=== PATIENT | male | born 1990 | race Two or more races ===

== ENCOUNTER 2018-04-26 19:05 | Emergency (ER) | payer SELFPAY ==
[~2018-04-26] VITALS: Ht 170.2 cm; Wt 79.4 kg
[2018-04-26] MEDS ORDERED: Dicyclomine HCl 10mg/5ml oral soln ORAL ONE (19:15)
[2018-04-26 19:20] VITALS: BP 138/68
[2018-04-26 20:02] LABS: BASOPHILS % (AUTO) 0.6 % (0.0-2.0); HEMATOCRIT 33.5 % (42.0-52.0); HEMOGLOBIN 11.6 G/DL (14.2-18.0); INR 1.1 (0.9-1.1); MEAN CORPUSCULAR VOLUME 90 FL (80-99); MONOCYTES % (AUTO) 5.9 % (1.0-10.0); NEUTROPHILS % (AUTO) 84.6 % (45.0-75.0); PLATELET COUNT 101 K/UL (150-450); RED BLOOD COUNT 3.74 M/UL (4.70-6.10); RED CELL DISTRIBUTION WIDTH 12.6 % (11.6-14.8); WHITE BLOOD COUNT 9.8 K/UL (4.8-10.8)
[2018-04-26 20:06] LABS: ANION GAP 10 mmol/L (5-15); BLOOD UREA NITROGEN 5 mg/dL (7-18); CALCIUM 9.7 MG/DL (8.5-10.1); CARBON DIOXIDE 26 MMOL/L (21-32); CHLORIDE 101 MMOL/L (98-107); CREATININE 0.9 MG/DL (0.55-1.30); SODIUM 137 MMOL/L (136-145)
[2018-04-26 20:16] LABS: ALANINE AMINOTRANSFERASE 127 U/L (12-78); ALBUMIN 4.5 G/DL (3.4-5.0); ALKALINE PHOSPHATASE 277 U/L (46-116); ASPARTATE AMINO TRANSFERASE 154 U/L (15-37); BILIRUBIN,TOTAL 2.7 MG/DL (0.2-1.0)
[2018-04-26 20:18] LABS: BILIRUBIN,DIRECT 0.8 MG/DL (0.0-0.3)
[2018-04-26 20:25] VITALS: BP 127/64
[2018-04-26] MEDS ORDERED: ATIVAN1 MG ORAL (20:38)
[2018-04-26 20:49] VITALS: BP 127/64
--- NOTE | 2018-04-26 23:20 | Emergency Room Report ---
History of Present Illness General Chief Complaint: Chest Pain Source: Patient Present Illness HPI Patient is a 27-year-old male who presented after increased chest pain and agitation. Patient had gradual onset of symptoms. The patient reports having recent alcohol use. Patient states that he had been having increased anxiety as well as some generalized anxious feelings. He denies any drug use. He is feeling generalized tremulousness. Allergies: Coded Allergies: No Known Allergies (Unverified , 04/26/18) Patient History Past Medical History: see triage record Reviewed Nursing Documentation: PMH: Agreed; PSxH: Agreed Nursing Documentation-PMH Past Medical History: No Stated History Review of Systems All Other Systems: negative except mentioned in HPI Physical Exam Vital Signs Date Time Temp Pulse Resp B/P (MAP) Pulse Ox O2 Delivery O2 Flow Rate FiO2 04/26/18 19:12 102 04/26/18 19:20 98.7 20 138/68 98 Room Air 98.7 Sp02 EP Interpretation: reviewed, normal General Appearance: normal inspection, well appearing, no apparent distress, alert, GCS 15 Head: atraumatic ENT: normal ENT inspection, hearing grossly normal, normal voice Neck: normal inspection, full range of motion, supple, no bony tend Respiratory: normal inspection, lungs clear, normal breath sounds, no respiratory distress, no retraction, no wheezing Cardiovascular #1: regular rate, rhythm, no edema Gastrointestinal: normal inspection, normal bowel sounds, non tender, soft, no guarding, no hernia Genitourinary: no CVA tenderness Musculoskeletal: normal inspection, back normal, normal range of motion Neurologic: normal inspection, alert, oriented x3, responsive, candle cutter III-XII nml as tested, speech normal Psychiatric: normal inspection, judgement/insight normal, mood/affect normal, anxious Skin: normal inspection, normal color, no rash Medical Decision Making Diagnostic Impression: Primary Impression: Abdominal pain ER Course Patient presented for abdominal pain. Differential diagnoses included ischemic bowel, appendicitis, perforated viscus, abdominal aortic aneurysm, inferior myocardial infarction, viral gastroenteritis Laboratory testing showed elevation of the patient's liver function tests. The patient was advised that he had some concerning liver function tests. Patient states that he did not want to remain in the hospital and wanted to leave immediately. The patient states that this is a chronic condition for him and he had been previously told that he had cirrhosis. The patient refused further testing and stated he wanted to leave. Patient was given prescription for Ativan for possible alcohol withdrawal.The patient is advised to follow up with primary care doctor in 1-2 days. Patient is advised to return if any worsening condition or if any changes in status that are concerning. This report is dictated with [employer] dial refinisher software which may occasionally lead to discrepancies related to use of this software. Labs Test 04/26/18 19:20 White Blood Count 9.8 K/UL (4.8-10.8) Red Blood Count 3.74 M/UL (4.70-6.10) Hemoglobin 11.6 G/DL (14.2-18.0) Hematocrit 33.5 % (42.0-52.0) Mean Corpuscular Volume 90 FL (80-99) Mean Corpuscular Hemoglobin 30.9 PG (27.0-31.0) Mean Corpuscular Hemoglobin Concent 34.5 G/DL (32.0-36.0) Red Cell Distribution Width 12.6 % (11.6-14.8) Platelet Count 101 K/UL (150-450) Mean Platelet Volume 8.0 FL (6.5-10.1) Neutrophils (%) (Auto) 84.6 % (45.0-75.0) Lymphocytes (%) (Auto) 9.0 % (20.0-45.0) Monocytes (%) (Auto) 5.9 % (1.0-10.0) Eosinophils (%) (Auto) 0.0 % (0.0-3.0) Basophils (%) (Auto) 0.6 % (0.0-2.0) Prothrombin Time 11.2 SEC (9.30-11.50) Prothromb Time International Ratio 1.1 (0.9-1.1) Activated Partial Thromboplast Time 22 SEC (23-33) Sodium Level 137 MMOL/L (136-145) Potassium Level 4.0 MMOL/L (3.5-5.1) Chloride Level 101 MMOL/L (98-107) Carbon Dioxide Level 26 MMOL/L (21-32) Anion Gap 10 mmol/L (5-15) Blood Urea Nitrogen 5 mg/dL (7-18) Creatinine 0.9 MG/DL (0.55-1.30) Estimat Glomerular Filtration Rate > 60 mL/min (>60) Glucose Level 167 MG/DL (74-106) Calcium Level 9.7 MG/DL (8.5-10.1) Total Bilirubin 2.7 MG/DL (0.2-1.0) Direct Bilirubin 0.8 MG/DL (0.0-0.3) Aspartate Amino Transf (AST/SGOT) 154 U/L (15-37) Alanine Aminotransferase (ALT/SGPT) 127 U/L (12-78) Alkaline Phosphatase 277 U/L (46-116) Troponin I 0.000 ng/mL (0.000-0.056) Total Protein 8.8 G/DL (6.4-8.2) Albumin 4.5 G/DL (3.4-5.0) Globulin 4.3 g/dL Albumin/Globulin Ratio 1.0 (1.0-2.7) Lipase 255 U/L (73-393) Last Vital Signs Date Time Temp Pulse Resp B/P (MAP) Pulse Ox O2 Delivery O2 Flow Rate FiO2 04/26/18 19:20 100 20 Room Air 04/26/18 19:20 98.7 138/68 98 98.7 Status: improved Disposition: HOME, SELF-CARE Condition: Stable Scripts Lorazepam* (ATIVAN*) 1 Mg Tablet 1 MG ORAL THREE TIMES A DAY, #14 TAB Prov: Gregorio Padgett MD 04/26/18 Referrals: NOT CHOSEN IPA/,REFERRING (PCP) Patient Instructions: Nonspecific Chest Pain Gregorio Padgett MD Apr 26, 2018 23:20
--- NOTE | 2018-04-27 10:35 | Diagnostic Imaging Report ---
Indication: Headache Technique: Contiguous 5 mm thick transaxial imaging of the head obtained in a Siemens Sensation [address] scanner. Soft tissue and bone windows generated. Automatic Exposure Control was utilized. Total Dose length Product (DLP): 1364.[address] Dose Index Volume (CTDIvol): 70.38 mGy Comparison: none Findings: The size and configuration of the cortical sulci, basal cisterns, and ventricles are within normal limits for age. There is no mass effect, midline shift, or edema identified. There is no evidence of acute hemorrhage or abnormal intra-axial or extra-axial fluid collections. The bones and soft tissues are unremarkable. Impression: No mass effect, edema or acute bleed. The CT scanner at [facility] is accredited by the [employer] and the scans are performed using dose optimization techniques as appropriate to a performed exam including Automatic Exposure control.
== END 2018-04-26 21:20 | disposition home or self-care (01) ==
LOC: EMR 21:20
DX: R10.9 Unspecified abdominal pain (principal); R07.9 Chest pain, unspecified; R45.1 Restlessness and agitation; F41.9 Anxiety disorder, unspecified
CPT/HCPCS: 36415; 70450; 80053; 82248; 83690; 84484; 85025; 85610; 85730; 93005; 99284

== ENCOUNTER 2018-09-01 19:07 | Inpatient (IN) | payer OTHER ==
[~2018-09-01] VITALS: Ht 172.7 cm; Wt 78.5 kg
[~2018-09-01 19:07] MED LIST: ATIVAN1 MG ORAL
[2018-09-01 19:15] VITALS: BP 137/86
--- NOTE | 2018-09-01 19:37 | Emergency Room Report ---
History of Present Illness General Chief Complaint: Vomiting Source: Patient Present Illness HPI 28-year-old male, history of alcoholism, p/w abdominal pain nausea and vomiting are 2 weeks. Patient states pain started about a month ago, says that it went away, then restarted again 2 weeks ago, localized all over abdomen but mostly on the left side, non radiating, sharp in nature, intermittent. No relieving or exacerbating factors. Severity is 5/ 10. Pt reports n/v, mult episodes of nbnb vomiting, no diarrhea, last bowel movement was this morning and it was brown. Denies coffee-ground emesis. Says that he has not been able to keep anything down for a few days Denies fever, chills. No hx of abdominal surgeries. No hx of endoscopies/colonoscopies. Last drink was 3 weeks ago Allergies: Coded Allergies: No Known Allergies (Unverified , 04/26/18) Patient History Past Medical History: see triage record Past Surgical History: none Pertinent Family History: none Reviewed Nursing Documentation: PMH: Agreed; PSxH: Agreed Nursing Documentation-PMH Past Medical History: No History, Except For Hx Gastrointestinal Problems: Yes Review of Systems All Other Systems: negative except mentioned in HPI Physical Exam Vital Signs Date Time Temp Pulse Resp B/P (MAP) Pulse Ox O2 Delivery O2 Flow Rate FiO2 09/01/18 19:18 97.2 135 16 149/95 100 Room Air Sp02 EP Interpretation: reviewed, normal General Appearance: alert, GCS 15, non-toxic, moderate distress Head: normocephalic, atraumatic Eyes: bilateral eye normal inspection, bilateral eye PERRL, bilateral eye EOMI ENT: normal ENT inspection, normal pharynx, normal voice, moist mucus membranes Neck: normal inspection, full range of motion, supple Respiratory: normal inspection, lungs clear, normal breath sounds, no respiratory distress, no retraction, no wheezing, speaking full sentences, chest symmetrical Cardiovascular #1: tachycardia Cardiovascular #2: 2+ radial (R), 2+ radial (L) Gastrointestinal: other - Generalized tenderness mostly in the left lower quadrant, without guarding or rebound Genitourinary: no CVA tenderness Musculoskeletal: normal inspection, back normal, normal range of motion, non- tender Neurologic: normal inspection, alert, oriented x3, responsive, motor strength/ tone normal, sensory intact, normal gait, speech normal Psychiatric: normal inspection, judgement/insight normal, memory normal Skin: normal inspection, normal color, no rash, warm/dry, well hydrated, normal turgor Medical Decision Making Diagnostic Impression: Primary Impression: Pancreatitis Additional Impressions: Hyponatremia Dehydration ER Course 28-year-old male with abdominal pain Differential Diagnosis: Gastritis, gastroenteritis, cholecystitis, appendicitis, diverticulitis, SBO,UTI /pyelo Plan: Basic labs, ua, ekg Pepcid, maalox, pain control, IVF CT abdopelvis ER course: Patient given fluids/morphine/zofran +pancreatitis Disposition: admit to [facility], damian Lainez Strict return precautions discussed with patient such as fever, chills, worsening/severe abdominal pain, nausea, vomiting, black or bloody stools, which may indicate severe illness. Patient verbalizes understanding and agrees with plan. Please note that this Emergency Department Report was dictated using [employer] billing assistant technology software, occasionally this can lead to erroneous entry secondary to interpretation by the dictation equipment EKG Diagnostic Results EP Interpretation: Yes Rate: 120 Rhythm: NSR ST Segments: No acute changes ASA given to patient: No Rhythm Strip EP Interpretation: Yes Rate:120 Rhythm: NSR, no PVCs, no ectopy Chest X-ray CXR: Ordered: Yes 1 view Indication: Chest pain EP interpretation: Yes Interpretation: No consolidation, no effusion, no PTX, no acute cardiopulmonary disease Impression: No acute disease Electronically signed by Efren Barnes MD Laboratory Tests Test 09/01/18 19:30 White Blood Count 16.4 K/UL (4.8-10.8) H Red Blood Count 4.82 M/UL (4.70-6.10) Hemoglobin 15.5 G/DL (14.2-18.0) Hematocrit 43.7 % (42.0-52.0) Mean Corpuscular Volume 91 FL (80-99) Mean Corpuscular Hemoglobin 32.1 PG (27.0-31.0) H Mean Corpuscular Hemoglobin Concent 35.5 G/DL (32.0-36.0) Red Cell Distribution Width 13.4 % (11.6-14.8) Platelet Count 106 K/UL (150-450) L Mean Platelet Volume 8.0 FL (6.5-10.1) Neutrophils (%) (Auto) % (45.0-75.0) Lymphocytes (%) (Auto) % (20.0-45.0) Monocytes (%) (Auto) % (1.0-10.0) Eosinophils (%) (Auto) % (0.0-3.0) Basophils (%) (Auto) % (0.0-2.0) Differential Total Cells Counted 100 Neutrophils % (Manual) 84 % (45-75) H Lymphocytes % (Manual) 7 % (20-45) L Monocytes % (Manual) 5 % (1-10) Eosinophils % (Manual) 0 % (0-3) Basophils % (Manual) 1 % (0-2) Band Neutrophils 3 % (0-8) Platelet Estimate Decreased L Platelet Morphology Normal Red Blood Cell Morphology Normal Prothrombin Time 11.6 SEC (9.30-11.50) H Prothrombin Time INR 1.1 (0.9-1.1) PTT 28 SEC (23-33) Sodium Level 127 MMOL/L (136-145) L Potassium Level 3.5 MMOL/L (3.5-5.1) Chloride Level 79 MMOL/L (98-107) L Carbon Dioxide Level 13 MMOL/L (21-32) L Anion Gap 35 mmol/L (5-15) H Blood Urea Nitrogen 24 mg/dL (7-18) H Creatinine 1.7 MG/DL (0.55-1.30) H Estimate Glomerular Filtration Rate 48.2 mL/min (>60) Glucose Level 212 MG/DL (74-106) H Calcium Level 10.1 MG/DL (8.5-10.1) Total Bilirubin 8.0 MG/DL (0.2-1.0) H Direct Bilirubin 5.7 MG/DL (0.0-0.3) H Aspartate Amino Transferase (AST) 322 U/L (15-37) H Alanine Aminotransferase (ALT) 119 U/L (12-78) H Alkaline Phosphatase 290 U/L (46-116) H Total Protein 9.8 G/DL (6.4-8.2) H Albumin 4.2 G/DL (3.4-5.0) Globulin 5.6 g/dL Lipase > 2000 U/L (73-393) H Serum Alcohol < 3 mg/dL CT/MRI/US Diagnostic Results CT/MRI/US Diagnostic Results : Imaging Test Ordered: CT abdo pelvis Impression Midline liver extends to left upper quadrant, normal variant. Fatty infiltration of liver noted. Spleen normal, no free fluid or air. No SBO. Normal appendix. Moderate-sized hiatal hernia. Gallbladder confluent hyperdensity of lumen may be due to sludge Last Vital Signs Date Time Temp Pulse Resp B/P (MAP) Pulse Ox O2 Delivery O2 Flow Rate FiO2 09/01/18 19:18 97.2 135 16 149/95 100 Room Air Disposition: ADMITTED INPATIENT Condition: Serious Efren Barnes M.D. Sep 01, 2018 19:37
[2018-09-01] MEDS ORDERED: Isovue-300 100ml vial INJ PRN (19:45)
[2018-09-01 19:50] LABS: HEMATOCRIT 43.7 % (42.0-52.0); HEMOGLOBIN 15.5 G/DL (14.2-18.0); MEAN CORPUSCULAR VOLUME 91 FL (80-99); PLATELET COUNT 106 K/UL (150-450); RED BLOOD COUNT 4.82 M/UL (4.70-6.10); RED CELL DISTRIBUTION WIDTH 13.4 % (11.6-14.8); WHITE BLOOD COUNT 16.4 K/UL (4.8-10.8)
[2018-09-01 19:58] LABS: ANION GAP 35 mmol/L (5-15); BLOOD UREA NITROGEN 24 mg/dL (7-18); CALCIUM 10.1 MG/DL (8.5-10.1); CARBON DIOXIDE 13 MMOL/L (21-32); CHLORIDE 79 MMOL/L (98-107); CREATININE 1.7 MG/DL (0.55-1.30); POTASSIUM 3.5 MMOL/L (3.5-5.1); SODIUM 127 MMOL/L (136-145)
[2018-09-01 20:04] LABS: INR 1.1 (0.9-1.1)
[2018-09-01 20:06] LABS: ALANINE AMINOTRANSFERASE 119 U/L (12-78); ALBUMIN 4.2 G/DL (3.4-5.0); ALKALINE PHOSPHATASE 290 U/L (46-116); ASPARTATE AMINO TRANSFERASE 322 U/L (15-37)
[2018-09-01 20:16] LABS: BILIRUBIN,DIRECT 5.7 MG/DL (0.0-0.3)
[2018-09-01] MEDS ORDERED: Morphine Sulfate 4mg/ml Inj (IV/IM USE ONLY) IVP ONE ×2 (20:30→21:00)
[2018-09-01] MEDS ORDERED: Piperacillin/Tazobactam 3.375 GM in NS 110 ML IVPB ONE (21:45)
[2018-09-02] VITALS: BP 138/60
--- NOTE | 2018-09-02 00:46 | Consultation ---
DATE OF CONSULTATION: 09/01/2018 CONSULTING PHYSICIAN: Marla Vaughn M.D. REQUESTING PHYSICIAN: Emergency room physician. REASON FOR CONSULTATION: Abdominal pain. HISTORY OF PRESENT ILLNESS: This is a 28-year-old male, who presented to emergency room complaining of abdominal pain apparently off and on for about a month. The pain is mainly located at the left lower quadrant. It has been associated with nausea and vomiting and he had a normal bowel movement today. He denies any fever, cough, dysuria, or frequency. He stated that several months ago, he had a similar episode for which he came to the hospital and was discharged after treatment. He denies fatty intolerance. He used to drink alcohol for only 3 months, but he has not had any for 3 weeks. PAST MEDICAL HISTORY: He denies allergies, asthma, diabetes, hypertension, and cardiac or renal diseases. SURGERIES: None. MEDICATIONS: Sleeping pill. SOCIAL HISTORY: The patient is a 28-year-old male, who is single and father of one child. 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 Denies smoking. He has not had any drink for 3 weeks, but he used to drink 3 times a week for short time. REVIEW OF SYSTEMS: Noncontributory. PHYSICAL EXAMINATION: GENERAL: The patient appeared to be a well-developed, well-nourished, 28-year-old male, lying on the gurney, complaining of abdominal pain. HEENT: Head is normocephalic and atraumatic. Eyes, pupils are equal, round, and reactive to light. Mouth is clear. NECK: There is no palpable thyromegaly or adenopathy. CHEST: Clear to auscultation and percussion. HEART: Tachycardic, but there is no gallop or murmur. ABDOMEN: Soft and flat mild tenderness mainly on the left side of the abdomen, but there is no guarding or rebound tenderness. Bowel sounds are present. GENITAL: Deferred. EXTREMITIES: Within normal limits. LABORATORY AND DIAGNOSTIC DATA: CBC has shown a WBC of 16,400 with a left shift. Chemistry has shown extensive changes. Sodium of 127, chloride of 79, BUN of 24, creatinine 1.7, and glucose of 212. Total bilirubin 8. Direct bilirubin 5.7. SGOT and SGPT elevated to 322 and 119. Alkaline phosphatase of 290. Lipase is over 2000. ASSESSMENT: Pancreatitis. PLAN: The patient requires to be NPO on IV fluids. He needs GI consultation and probably, he will require an endoscopic retrograde cholangiopancreatography. Marla Vaughn M.D. DR: EMORY JOB#: [id number] CC:
[2018-09-02] MEDS ORDERED: HYDROmorphone 1mg/ml Carpuject IVP PRN (01:15)
[2018-09-02 04:00] VITALS: BP 142/60
[2018-09-02 08:00] VITALS: BP 128/88
[2018-09-02 08:08] LABS: HEMATOCRIT 37.7 % (42.0-52.0); HEMOGLOBIN 12.7 G/DL (14.2-18.0); MEAN CORPUSCULAR VOLUME 89 FL (80-99); PLATELET COUNT 92 K/UL (150-450); RED BLOOD COUNT 4.24 M/UL (4.70-6.10); RED CELL DISTRIBUTION WIDTH 13.1 % (11.6-14.8); WHITE BLOOD COUNT 14.5 K/UL (4.8-10.8)
[2018-09-02] MEDS: Thiamine 100mg tab ORAL SCH (08:33)
[2018-09-02 08:36] LABS: ALANINE AMINOTRANSFERASE 94 U/L (12-78); ALBUMIN 3.4 G/DL (3.4-5.0); ALBUMIN/GLOBULIN RATIO 0.7 (1.0-2.7); ALKALINE PHOSPHATASE 222 U/L (46-116); ANION GAP 22 mmol/L (5-15); ASPARTATE AMINO TRANSFERASE 245 U/L (15-37); BILIRUBIN,TOTAL 6.7 MG/DL (0.2-1.0); BLOOD UREA NITROGEN 21 mg/dL (7-18); CALCIUM 8.7 MG/DL (8.5-10.1); CARBON DIOXIDE 16 MMOL/L (21-32); CHLORIDE 89 MMOL/L (98-107); CREATININE 1.3 MG/DL (0.55-1.30); POTASSIUM 3.3 MMOL/L (3.5-5.1); SODIUM 127 MMOL/L (136-145)
[2018-09-02 08:39] LABS: BILIRUBIN,DIRECT 4.9 MG/DL (0.0-0.3)
--- NOTE | 2018-09-02 08:47 | Consultation ---
History of Present Illness General Date patient seen: Sep 02, 2018 Present Illness Allergies: Coded Allergies: No Known Allergies (Unverified , 04/26/18) Medication History Scheduled Lorazepam* (Ativan*), 1 MG ORAL THREE TIMES A DAY Patient History Healthcare decision maker Resuscitation status Full Code Advanced Directive on File No Physical Exam Last 24 Hour Vital Signs Date Time Temp Pulse Resp B/P (MAP) Pulse Ox O2 Delivery O2 Flow Rate FiO2 09/02/18 08:00 98.2 112 18 128/88 (101) 100 09/02/18 04:00 98.1 120 18 142/60 (87) 99 09/02/18 03:24 116 09/02/18 01:35 Room Air 09/02/18 00:00 97.0 123 20 138/60 (86) 98 09/01/18 22:40 97.2 117 16 137/86 100 Room Air 117 09/01/18 22:10 127 16 Room Air 09/01/18 19:18 97.2 135 16 149/95 100 Room Air 09/01/18 19:15 98.1 130 17 137/86 100 Room Air Intake and Output 09/01/18 09/02/18 19:00 07:00 Intake Total 0 ml Balance 0 ml Intake Oral 0 ml Laboratory Tests Test 09/01/18 19:30 09/02/18 07:05 White Blood Count 16.4 K/UL (4.8-10.8) H 14.5 K/UL (4.8-10.8) H Red Blood Count 4.82 M/UL (4.70-6.10) 4.24 M/UL (4.70-6.10) L Hemoglobin 15.5 G/DL (14.2-18.0) 12.7 G/DL (14.2-18.0) L Hematocrit 43.7 % (42.0-52.0) 37.7 % (42.0-52.0) L Mean Corpuscular Volume 91 FL (80-99) 89 FL (80-99) Mean Corpuscular Hemoglobin 32.1 PG (27.0-31.0) H 29.9 PG (27.0-31.0) Mean Corpuscular Hemoglobin Concent 35.5 G/DL (32.0-36.0) 33.7 G/DL (32.0-36.0) Red Cell Distribution Width 13.4 % (11.6-14.8) 13.1 % (11.6-14.8) Platelet Count 106 K/UL (150-450) L 92 K/UL (150-450) L Mean Platelet Volume 8.0 FL (6.5-10.1) 8.1 FL (6.5-10.1) Neutrophils (%) (Auto) % (45.0-75.0) % (45.0-75.0) Lymphocytes (%) (Auto) % (20.0-45.0) % (20.0-45.0) Monocytes (%) (Auto) % (1.0-10.0) % (1.0-10.0) Eosinophils (%) (Auto) % (0.0-3.0) % (0.0-3.0) Basophils (%) (Auto) % (0.0-2.0) % (0.0-2.0) Differential Total Cells Counted 100 Neutrophils % (Manual) 84 % (45-75) H Pending Lymphocytes % (Manual) 7 % (20-45) L Pending Monocytes % (Manual) 5 % (1-10) Eosinophils % (Manual) 0 % (0-3) Basophils % (Manual) 1 % (0-2) Band Neutrophils 3 % (0-8) Platelet Estimate Decreased L Pending Platelet Morphology Normal Pending Red Blood Cell Morphology Normal Prothrombin Time 11.6 SEC (9.30-11.50) H Prothromb Time International Ratio 1.1 (0.9-1.1) Activated Partial Thromboplast Time 28 SEC (23-33) Sodium Level 127 MMOL/L (136-145) L 127 MMOL/L (136-145) L Potassium Level 3.5 MMOL/L (3.5-5.1) 3.3 MMOL/L (3.5-5.1) L Chloride Level 79 MMOL/L (98-107) L 89 MMOL/L (98-107) L Carbon Dioxide Level 13 MMOL/L (21-32) L 16 MMOL/L (21-32) L Anion Gap 35 mmol/L (5-15) H 22 mmol/L (5-15) H Blood Urea Nitrogen 24 mg/dL (7-18) H 21 mg/dL (7-18) H Creatinine 1.7 MG/DL (0.55-1.30) H 1.3 MG/DL (0.55-1.30) Estimat Glomerular Filtration Rate 48.2 mL/min (>60) > 60 mL/min (>60) Glucose Level 212 MG/DL (74-106) H 125 MG/DL (74-106) H Calcium Level 10.1 MG/DL (8.5-10.1) 8.7 MG/DL (8.5-10.1) Total Bilirubin 8.0 MG/DL (0.2-1.0) H 6.7 MG/DL (0.2-1.0) H Direct Bilirubin 5.7 MG/DL (0.0-0.3) H 4.9 MG/DL (0.0-0.3) H Aspartate Amino Transf (AST/SGOT) 322 U/L (15-37) H 245 U/L (15-37) H Alanine Aminotransferase (ALT/SGPT) 119 U/L (12-78) H 94 U/L (12-78) H Alkaline Phosphatase 290 U/L (46-116) H 222 U/L (46-116) H Total Protein 9.8 G/DL (6.4-8.2) H 8.1 G/DL (6.4-8.2) Albumin 4.2 G/DL (3.4-5.0) 3.4 G/DL (3.4-5.0) Globulin 5.6 g/dL 4.7 g/dL Lipase > 2000 U/L (73-393) H > 2000 U/L (73-393) H Serum Alcohol < 3 mg/dL Albumin/Globulin Ratio 0.7 (1.0-2.7) L Height (Feet): 5 Height (Inches): 8.00 Weight (Pounds): 173 Medications Current Medications Medications (Trade) Dose Ordered Sig/Solis Route PRN Reason Start Time Stop Time Status Last Admin Dose Admin Diazepam (Valium) 10 mg EVERY 2 HOURS PRN ORAL For Anxiety 09/01/18 23:30 09/08/18 23:29 09/02/18 02:10 Folic Acid (Folate) 1 mg DAILY ORAL 09/02/18 09:00 10/02/18 08:59 09/02/18 08:33 Hydromorphone HCl (Dilaudid) 1 mg Q4H PRN IVP Moderate Pain (Pain Scale 4-6) 09/02/18 01:15 09/09/18 01:14 Hydromorphone HCl (Dilaudid) 2 mg Q4H PRN IVP Severe Pain (Pain Scale 7-10) 09/02/18 01:15 09/09/18 01:14 Iopamidol (Isovue-300 100ml) 100 ml NOW PRN INJ Radiology Procedure 09/01/18 19:45 Ondansetron HCl (Zofran) 4 mg Q6H PRN IVP Nausea & Vomiting 09/02/18 01:15 10/02/18 01:14 09/02/18 08:39 Thiamine HCl (Vitamin B1) 100 mg DAILY ORAL 09/02/18 09:00 10/02/18 08:59 09/02/18 08:33 Assessment/Plan Assessment/Plan (1) Abdominal pain (2) Pancreatitis seen dictated David La Sep 02, 2018 08:47
[2018-09-02] MEDS ORDERED: Norco 5mg/325mg tab ORAL PRN (09:00)
[2018-09-02] MEDS ORDERED: Hydromorphone 0.5mg/0.5ml inj IVP PRN (09:15)
--- NOTE | 2018-09-02 09:58 | Diagnostic Imaging Report ---
Indication: Abdominal pain, nausea, vomiting x2 weeks Technique: Spiral acquisitions obtained through the abdomen and pelvis. No oral contrast utilized, per emergency room physician request No IV contrast utilized, per referring physician request.. Multiplanar reconstructions were generated. Total dose length product 593.26 mGycm. CTDIvol(s) 11.22 mGy. Dose reduction achieved using automated exposure control Comparison: None Findings: There is a small to moderate-sized hiatal hernia. Stomach, duodenum are unremarkable otherwise. No small bowel distention. There are a few mildly prominent left lower quadrant small bowel loops noted. The appendix is normal. No evidence of diverticulosis or diverticulitis. No free or loculated intraperitoneal gas or fluid is evident. Lack of IV contrast limits assessment of the solid organs. The liver is diffusely hypoattenuating. It is enlarged. No focal abnormality. The gallbladder contents are slightly high in attenuation, but no focal calculi demonstrated. The bile ducts, pancreas, spleen, adrenals, kidneys are all unremarkable. No retroperitoneal or mesenteric mass or adenopathy. No pelvic mass or adenopathy. The included lung bases demonstrate minimal linear opacities in the lingula and left lower lobe, are otherwise clear. The bones are unremarkable.. Impression: Somewhat enlarged fatty liver No definite acute process Possible gallbladder sludge Small to moderate hiatal hernia This agrees with the preliminary interpretation provided overnight by Dr. Larsen The CT scanner at [facility] is accredited by the [employer] and the scans are performed using protocols designed to limit radiation exposure to as low as reasonably achievable to attain images of sufficient resolution adequate for diagnostic evaluation.
--- NOTE | 2018-09-02 10:37 | GI Initial Consult Note ---
History of Present Illness General Date patient seen: Sep 02, 2018 Time patient seen: 13:28 Reason for Hospitalization: Vomiting Referring physician: RHIANNA POTTER Reason for Consultation: ABNORMAL LFTS Present Illness HPI 28-year-old male, history of alcoholism, p/w abdominal pain nausea and vomiting are 2 weeks. Patient states pain started about a month ago, says that it went away, then restarted again 2 weeks ago, localized all over abdomen but mostly on the left side, non radiating, sharp in nature, intermittent. No relieving or exacerbating factors. Severity is 5/ 10. Pt reports n/v, mult episodes of nbnb vomiting, no diarrhea, last bowel movement was this morning and it was brown. Denies coffee-ground emesis. Says that he has not been able to keep anything down for a few days Denies fever, chills. No hx of abdominal surgeries. No hx of endoscopies/colonoscopies. Last drink was 3 weeks ago Presents today with elevated LFTs and lipase greater than 2000. Home Meds Active Scripts Lorazepam* (ATIVAN*) 1 Mg Tablet, 1 MG ORAL THREE TIMES A DAY, #14 TAB Prov:Gregorio Padgett MD 04/26/18 Med list reviewed/reconciled: Yes Allergies: Coded Allergies: No Known Allergies (Unverified , 04/26/18) Patient History History Provided By: Patient, Medical Record PMH Narrative Past Medical History: see triage record Past Surgical History: none Pertinent Family History: none Reviewed Nursing Documentation: PMH: Agreed; PSxH: Agreed Nursing Documentation-PMH Past Medical History: No History, Except For Hx Gastrointestinal Problems: Yes Social History: Denies: smoking, alcohol use, drug use, other Review of Systems All Other Systems: negative except mentioned in HPI Physical Exam Vital Signs Date Time Temp Pulse Resp B/P (MAP) Pulse Ox O2 Delivery O2 Flow Rate FiO2 09/01/18 19:15 98.1 130 17 137/86 100 Room Air Sp02 EP Interpretation: reviewed, normal Labs Laboratory Tests Test 09/01/18 19:30 09/02/18 07:05 White Blood Count 16.4 K/UL (4.8-10.8) H 14.5 K/UL (4.8-10.8) H Red Blood Count 4.82 M/UL (4.70-6.10) 4.24 M/UL (4.70-6.10) L Hemoglobin 15.5 G/DL (14.2-18.0) 12.7 G/DL (14.2-18.0) L Hematocrit 43.7 % (42.0-52.0) 37.7 % (42.0-52.0) L Mean Corpuscular Volume 91 FL (80-99) 89 FL (80-99) Mean Corpuscular Hemoglobin 32.1 PG (27.0-31.0) H 29.9 PG (27.0-31.0) Mean Corpuscular Hemoglobin Concent 35.5 G/DL (32.0-36.0) 33.7 G/DL (32.0-36.0) Red Cell Distribution Width 13.4 % (11.6-14.8) 13.1 % (11.6-14.8) Platelet Count 106 K/UL (150-450) L 92 K/UL (150-450) L Mean Platelet Volume 8.0 FL (6.5-10.1) 8.1 FL (6.5-10.1) Neutrophils (%) (Auto) % (45.0-75.0) % (45.0-75.0) Lymphocytes (%) (Auto) % (20.0-45.0) % (20.0-45.0) Monocytes (%) (Auto) % (1.0-10.0) % (1.0-10.0) Eosinophils (%) (Auto) % (0.0-3.0) % (0.0-3.0) Basophils (%) (Auto) % (0.0-2.0) % (0.0-2.0) Differential Total Cells Counted 100 100 Neutrophils % (Manual) 84 % (45-75) H 82 % (45-75) H Lymphocytes % (Manual) 7 % (20-45) L 8 % (20-45) L Monocytes % (Manual) 5 % (1-10) 10 % (1-10) Eosinophils % (Manual) 0 % (0-3) 0 % (0-3) Basophils % (Manual) 1 % (0-2) 0 % (0-2) Band Neutrophils 3 % (0-8) 0 % (0-8) Platelet Estimate Decreased L Decreased L Platelet Morphology Normal Normal Red Blood Cell Morphology Normal Normal Prothrombin Time 11.6 SEC (9.30-11.50) H Prothromb Time International Ratio 1.1 (0.9-1.1) Activated Partial Thromboplast Time 28 SEC (23-33) Sodium Level 127 MMOL/L (136-145) L 127 MMOL/L (136-145) L Potassium Level 3.5 MMOL/L (3.5-5.1) 3.3 MMOL/L (3.5-5.1) L Chloride Level 79 MMOL/L (98-107) L 89 MMOL/L (98-107) L Carbon Dioxide Level 13 MMOL/L (21-32) L 16 MMOL/L (21-32) L Anion Gap 35 mmol/L (5-15) H 22 mmol/L (5-15) H Blood Urea Nitrogen 24 mg/dL (7-18) H 21 mg/dL (7-18) H Creatinine 1.7 MG/DL (0.55-1.30) H 1.3 MG/DL (0.55-1.30) Estimat Glomerular Filtration Rate 48.2 mL/min (>60) > 60 mL/min (>60) Glucose Level 212 MG/DL (74-106) H 125 MG/DL (74-106) H Calcium Level 10.1 MG/DL (8.5-10.1) 8.7 MG/DL (8.5-10.1) Total Bilirubin 8.0 MG/DL (0.2-1.0) H 6.7 MG/DL (0.2-1.0) H Direct Bilirubin 5.7 MG/DL (0.0-0.3) H 4.9 MG/DL (0.0-0.3) H Aspartate Amino Transf (AST/SGOT) 322 U/L (15-37) H 245 U/L (15-37) H Alanine Aminotransferase (ALT/SGPT) 119 U/L (12-78) H 94 U/L (12-78) H Alkaline Phosphatase 290 U/L (46-116) H 222 U/L (46-116) H Total Protein 9.8 G/DL (6.4-8.2) H 8.1 G/DL (6.4-8.2) Albumin 4.2 G/DL (3.4-5.0) 3.4 G/DL (3.4-5.0) Globulin 5.6 g/dL 4.7 g/dL Lipase > 2000 U/L (73-393) H > 2000 U/L (73-393) H Serum Alcohol < 3 mg/dL Albumin/Globulin Ratio 0.7 (1.0-2.7) L General Appearance: well appearing, no apparent distress, alert Head: normocephalic EENT: PERRL/EOMI, normal ENT inspection Neck: supple Respiratory: normal breath sounds, no respiratory distress Cardiovascular: normal rate Gastrointestinal: normal inspection, non tender, soft, normal bowel sounds, non -distended Rectal: deferred Genitourinary: deferred Musculoskeletal: normal inspection, back normal Neurologic: normal inspection, alert, oriented x3, responsive Psychiatric: normal inspection, judgement/insight normal, memory normal Skin: normal inspection, normal color, no rash, warm/dry, palpation normal, well hydrated Lymphatic: normal inspection, no adenopathy Current Medications Current Medications Medications (Trade) Dose Ordered Sig/Solis Route PRN Reason Start Time Stop Time Status Last Admin Dose Admin Acetaminophen/ Hydrocodone Bitart (Elaine 5/325) 1 tab Q4H PRN ORAL Moderate Pain (Pain Scale 4-6) 09/02/18 09:00 09/09/18 08:59 Diazepam (Valium) 10 mg EVERY 2 HOURS PRN ORAL For Anxiety 09/01/18 23:30 09/08/18 23:29 09/02/18 02:10 Folic Acid (Folate) 1 mg DAILY ORAL 09/02/18 09:00 10/02/18 08:59 09/02/18 08:33 Hydromorphone HCl (Dilaudid) 0.5 mg Q4H PRN IVP Severe Pain (Pain Scale 7-10) 09/02/18 09:15 09/09/18 01:14 Iopamidol (Isovue-300 100ml) 100 ml NOW PRN INJ Radiology Procedure 09/01/18 19:45 Ondansetron HCl (Zofran) 4 mg Q6H PRN IVP Nausea & Vomiting 09/02/18 01:15 10/02/18 01:14 09/02/18 08:39 Thiamine HCl (Vitamin B1) 100 mg DAILY ORAL 09/02/18 09:00 10/02/18 08:59 09/02/18 08:33 GI: Plan Problems: (1) Abnormal LFTs (liver function tests) (2) Abdominal pain (3) Dehydration (4) Hyponatremia (5) Pancreatitis Plan denies ETOH/Drug use , last ETOH use x3 weeks elevated LFTs ?shocked liver pancreatitis unknown etiology MRCP bowel rest >> NPO + IVFs utox pain mgmt zofran prn GGT repeat lipase levels trend LFTs fu labs Discussed with Dr. Victoria. Thank you for this patient referral, we will follow. The patient was seen and examined at bedside and all new and available data was reviewed in the patients chart. I agree with the above findings, impression and plan. (Patient seen earlier today. Signature stamp does not reflect patient encounter time.). - MD Chikis Martinez Anh-Trae PROFESSOR OF MUSIC Sep 02, 2018 10:37
[2018-09-02] MEDS ORDERED: D5 1/4NS w/KCl 20mEq 1,000 ML IV SCH (11:00)
--- NOTE | 2018-09-02 11:35 | Diagnostic Imaging Report ---
Indication: Abdominal pain Technique: One view of the chest Comparison: none Findings: Lungs and pleural spaces are clear. Heart size is normal . Surgical hardware is seen in the cervical spine Impression: No acute process
[2018-09-02 12:00] VITALS: BP 124/81
--- NOTE | 2018-09-02 12:27 | Consultation ---
Consult Note Consult Note HEMATOLOGY-ONCOLOGY CONSULTATION REFERRING PHYSICIAN: Bessy Mccormick REASON FOR CONSULTATION: Leukocytosis, thrombocytopenia DATE OF CONSULTATION: 09/02/2018 HISTORY OF PRESENT ILLNESS: This is a 28-year-old male, who presented to emergency room complaining of abdominal pain apparently off and on for about a month. The pain is mainly located at the left lower quadrant. It has been associated with nausea and vomiting and he had a normal bowel movement today. He denies any fever, cough, dysuria, or frequency. He stated that several months ago, he had a similar episode for which he came to the hospital and was discharged after treatment. He denies fatty intolerance. He used to drink alcohol for only 3 months, but he has not had any for 3 weeks. Hematology services consulted for the evaluation and management of leukocytosis and thrombocytopenia. Labs have been reviewed. PAST MEDICAL HISTORY: He denies allergies, asthma, diabetes, hypertension,and cardiac or renal diseases. SURGERIES: None. MEDICATIONS: Sleeping pill. SOCIAL HISTORY: The patient is a 28-year-old male, who is single and father of one child. 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 Denies smoking. He has not had any drink for 3 weeks, but he used to drink 3 times a week for short time. REVIEW OF SYSTEMS: Noncontributory. PHYSICAL EXAMINATION: Vitals: Have been reviewed GENERAL: No acute distress HEENT: Head is normocephalic and atraumatic. Eyes, pupils are equal, round, and reactive to light. Mouth is clear. NECK: There is no palpable thyromegaly or adenopathy. CHEST: Clear to auscultation and percussion. HEART: Tachycardic, but there is no gallop or murmur. ABDOMEN: Soft and flat mild tenderness mainly on the left side of the abdomen, but there is no guarding or rebound tenderness. Bowel sounds are present. GENITAL: Deferred. EXTREMITIES: Within normal limits. LABORATORY AND DIAGNOSTIC DATA: CBC has shown a WBC of 16,400 with a left shift. Chemistry has shown extensive changes. Sodium of 127, chloride of 79, BUN of 24, creatinine 1.7, and glucose of 212. Total bilirubin 8. Direct bilirubin 5.7. SGOT and SGPT elevated to 322 and 119. Alkaline phosphatase of 290. Lipase is over 2000. ASSESSMENT AND RECOMMENDATIONS # Leukocytosis. Likely related to underlying infection versus reactive process. --> Cont to monitor for improvement --> Imaging has been reviewed, shows no acute process --> Blood and urine cultures are pending --> Has been started on abx, empiric treatment # Thrombocytopenia. Potential causes multifactorial, evaluate liver and viral etiologies to begin. Also could be realted tp underlying medications pt has received. --> Peripheral smear ordered to evaluate for blasts/schistocytes --> Hep panel and HIV ordered. --> US abd ordered to evaluate for cirrhosis and hsm --> CT abd shows fatty liver. --> Abx and other meds have been reviewed. --> does have pancreatitis, eval for potential liver disease # Pancreatitis with abdominal pain. GI is following, appreciate recs. --> Pt is NPO and on IVF --> GGT --> Zofran prn # Transaminitis -- as per gi eval GREATLY APPRECIATE CONSULTATION. Pawel Ferrera MD Sep 02, 2018 12:27
--- NOTE | 2018-09-02 12:51 | Consultation ---
Consult Note Consult Note 28-year-old male, history of alcoholism, p/w abdominal pain nausea and vomiting are 2 weeks. Patient states pain started about a month ago, says that it went away, then restarted again 2 weeks ago, localized all over abdomen but mostly on the left side, non radiating, sharp in nature, intermittent. No relieving or exacerbating factors. Severity is 5/ 10. Pt reports n/v, mult episodes of nbnb vomiting, no diarrhea, last bowel movement was this morning and it was brown. Denies coffee-ground emesis. Says that he has not been able to keep anything down for a few days Denies fever, chills. No hx of abdominal surgeries. No hx of endoscopies/colonoscopies. Last drink was 3 weeks ago interviewed examined data reviewed Assessment/Plan Pancreatitis Abnormal LFTs Hyponatremia Dehydration IV Fluids- Pepcid IV NPO Monitor Deion Stockton MD Sep 02, 2018 12:51
[2018-09-02] MEDS: Piperacillin/Tazobactam 3.375 GM in NS 110 ML IVPB SCH ×2 (14:52→22:37)
--- NOTE | 2018-09-02 15:45 | General Surgery Progress Note ---
General Surgery-Progress Note Subjective Symptoms: improved Objective Last 24 Hour Vital Signs Date Time Temp Pulse Resp B/P (MAP) Pulse Ox O2 Delivery O2 Flow Rate FiO2 09/02/18 12:00 110 09/02/18 12:00 98.3 113 18 124/81 (95) 98 09/02/18 09:00 Room Air 09/02/18 08:00 98.2 112 18 128/88 (101) 100 09/02/18 08:00 111 09/02/18 04:00 98.1 120 18 142/60 (87) 99 09/02/18 03:24 116 09/02/18 01:35 Room Air 09/02/18 00:00 97.0 123 20 138/60 (86) 98 09/01/18 22:40 97.2 117 16 137/86 100 Room Air 117 09/01/18 22:10 127 16 Room Air 09/01/18 19:18 97.2 135 16 149/95 100 Room Air 09/01/18 19:15 98.1 130 17 137/86 100 Room Air I&O Intake and Output 09/01/18 09/02/18 18:59 06:59 Intake Total 0 ml Balance 0 ml Intake Oral 0 ml Respiratory: clear Abdomen: soft, flat, tenderness, present bowel sounds Extremities: no tenderness Laboratory Tests Test 09/01/18 19:30 09/02/18 07:05 09/02/18 14:50 White Blood Count 16.4 K/UL (4.8-10.8) H 14.5 K/UL (4.8-10.8) H Red Blood Count 4.82 M/UL (4.70-6.10) 4.24 M/UL (4.70-6.10) L Hemoglobin 15.5 G/DL (14.2-18.0) 12.7 G/DL (14.2-18.0) L Hematocrit 43.7 % (42.0-52.0) 37.7 % (42.0-52.0) L Mean Corpuscular Volume 91 FL (80-99) 89 FL (80-99) Mean Corpuscular Hemoglobin 32.1 PG (27.0-31.0) H 29.9 PG (27.0-31.0) Mean Corpuscular Hemoglobin Concent 35.5 G/DL (32.0-36.0) 33.7 G/DL (32.0-36.0) Red Cell Distribution Width 13.4 % (11.6-14.8) 13.1 % (11.6-14.8) Platelet Count 106 K/UL (150-450) L 92 K/UL (150-450) L Mean Platelet Volume 8.0 FL (6.5-10.1) 8.1 FL (6.5-10.1) Neutrophils (%) (Auto) % (45.0-75.0) % (45.0-75.0) Lymphocytes (%) (Auto) % (20.0-45.0) % (20.0-45.0) Monocytes (%) (Auto) % (1.0-10.0) % (1.0-10.0) Eosinophils (%) (Auto) % (0.0-3.0) % (0.0-3.0) Basophils (%) (Auto) % (0.0-2.0) % (0.0-2.0) Differential Total Cells Counted 100 100 Neutrophils % (Manual) 84 % (45-75) H 82 % (45-75) H Lymphocytes % (Manual) 7 % (20-45) L 8 % (20-45) L Monocytes % (Manual) 5 % (1-10) 10 % (1-10) Eosinophils % (Manual) 0 % (0-3) 0 % (0-3) Basophils % (Manual) 1 % (0-2) 0 % (0-2) Band Neutrophils 3 % (0-8) 0 % (0-8) Platelet Estimate Decreased L Decreased L Platelet Morphology Normal Normal Red Blood Cell Morphology Normal Normal Prothrombin Time 11.6 SEC (9.30-11.50) H Prothromb Time International Ratio 1.1 (0.9-1.1) Activated Partial Thromboplast Time 28 SEC (23-33) Sodium Level 127 MMOL/L (136-145) L 127 MMOL/L (136-145) L Potassium Level 3.5 MMOL/L (3.5-5.1) 3.3 MMOL/L (3.5-5.1) L Chloride Level 79 MMOL/L (98-107) L 89 MMOL/L (98-107) L Carbon Dioxide Level 13 MMOL/L (21-32) L 16 MMOL/L (21-32) L Anion Gap 35 mmol/L (5-15) H 22 mmol/L (5-15) H Blood Urea Nitrogen 24 mg/dL (7-18) H 21 mg/dL (7-18) H Creatinine 1.7 MG/DL (0.55-1.30) H 1.3 MG/DL (0.55-1.30) Estimat Glomerular Filtration Rate 48.2 mL/min (>60) > 60 mL/min (>60) Glucose Level 212 MG/DL (74-106) H 125 MG/DL (74-106) H Calcium Level 10.1 MG/DL (8.5-10.1) 8.7 MG/DL (8.5-10.1) Total Bilirubin 8.0 MG/DL (0.2-1.0) H 6.7 MG/DL (0.2-1.0) H Direct Bilirubin 5.7 MG/DL (0.0-0.3) H 4.9 MG/DL (0.0-0.3) H Aspartate Amino Transf (AST/SGOT) 322 U/L (15-37) H 245 U/L (15-37) H Alanine Aminotransferase (ALT/SGPT) 119 U/L (12-78) H 94 U/L (12-78) H Alkaline Phosphatase 290 U/L (46-116) H 222 U/L (46-116) H Total Protein 9.8 G/DL (6.4-8.2) H 8.1 G/DL (6.4-8.2) Albumin 4.2 G/DL (3.4-5.0) 3.4 G/DL (3.4-5.0) Globulin 5.6 g/dL 4.7 g/dL Lipase > 2000 U/L (73-393) H > 2000 U/L (73-393) H Serum Alcohol < 3 mg/dL C-Reactive Protein, Quantitative 1.6 mg/dL (0.00-0.90) H Albumin/Globulin Ratio 0.7 (1.0-2.7) L D-Dimer Pending Assessment Additional Comments pancreatitis Plan Additional Comments NPO IV fluids Marla Vaughn MD Sep 02, 2018 15:45
[2018-09-02 16:00] VITALS: BP 132/86
--- NOTE | 2018-09-02 16:45 | Consultation ---
DATE OF CONSULTATION: 09/02/2018 PAIN MANAGEMENT CONSULTATION CONSULTING PHYSICIAN: Elio Hammer M.D. REFERRING PHYSICIAN: Bessy Mccormick M.D. PHYSICIAN API DEVELOPER: Mariama Huber CHIEF COMPLAINT: Abdominal pain. HISTORY OF PRESENT ILLNESS: The patient is a 28-year-old male who is being seen on the telemetry floor of [facility] for initial pain management consultation. The patient was admitted under the care of Dr. Mccormick complaining of severe abdominal pain, found to have pancreatitis with nausea and vomiting. He reports that he is not a heavy drinker, does drink occasionally and started to have pain for the past three weeks and was admitted into the hospital. In the ER, he was given morphine 4 mg IV, which patient states that he does not want to take any IV medications; however, when he was admitted onto the floor Dilaudid 1 and 2 mg IV was started for moderate to severe pain. I discussed the patient about reducing the strength of his medication so that he would have something for severe pain and we can start him on Bethany for moderate pain. He seems to understand. He is doing well and he is comfortable at this time. PAST MEDICAL HISTORY: Denies. PAST SURGICAL HISTORY: Denies. SOCIAL HISTORY: Denies smoking tobacco, drinks alcohol occasionally, and denies IV drug abuse. ALLERGIES: No known drug allergies. MEDICATIONS: Denies taking medications as an outpatient. REVIEW OF SYSTEMS: Denies rash, fever, chills, sweating, dizziness, drowsiness, blurred vision, sore throat, or change in weight. No shortness of breath or chest pain. No , diarrhea, or blood in the stool or urine. No bowel or bladder incontinence. No dysuria. He is complaining of abdominal pain. PHYSICAL EXAMINATION: GENERAL: Alert, awake, and oriented x3. VITAL SIGNS: Blood pressure 128/88, heart rate , oxygen saturation 100%, respiratory rate is 18, and temperature 98.2 degrees Fahrenheit. HEENT: PERRLA. NECK: Range of motion is full in all directions. No tenderness to paracervical muscles. No adenopathy. LUNGS: Decreased breath sounds bilaterally. HEART: Regular. ABDOMEN: Tenderness to palpation. BACK: Range of motion is decreased in flexion and extension due the patient's condition. EXTREMITIES: Upper and lower extremities range of motion is full. No cyanosis. No clubbing. No edema. Sensory is intact. Reflexes are not obtainable. No adenopathy. ASSESSMENT AND PLAN: This is a 28-year-old male with abdominal pain, pancreatitis. The patient will be decreased to Dilaudid 0.5 mg IV every 4 hours as needed for severe pain, started on Bethany 5/325 one tablet every 4 hours as needed for moderate pain. The patient was discussed with Dr. Hammer and Dr. Hammer concurred. We will follow the patient. Thank you very much for the courtesy of this consultation. Elio Hamemr M.D. JORDON Huber DR: Latasha JOB#: [id number] CC:
--- NOTE | 2018-09-02 16:49 | Diagnostic Imaging Report ---
Indication: Abdominal pain Technique: Mcwilliams-scale and duplex images of the upper abdomen were obtained. Doppler interrogation of the pancreatic and hepatic vessels Comparison: Abdomen pelvis CT 09/01/2018 Findings: Gallbladder contains sludge. Multiple polypoid appearing foci within the bladder lumen measures just over 1 cm, are nonshadowing and nonmobile, probably represent tumefactive sludge. Sonographic Victor's sign is negative. Common bile duct measures 5 mm in diameter. No intrahepatic biliary ductal dilatation. Liver demonstrates increased echogenicity and enlargement, consistent with steatosis and hepatomegaly described on recent CT. No focal abnormality Portal vein and hepatic veins are patent. Pancreas is incompletely visualized due to overlying bowel gas, visualized portions are unremarkable. Spleen is unremarkable. Left kidney measures 10.8 cm in length. Right kidney measures 12 cm length. Both kidneys demonstrate normal echogenicity. There is no hydronephrosis. No focal abnormality . Abdominal aorta is partially obscured by bowel gas, visualized portions are non-aneurysmal . Impression: Gallbladder sludge. Polypoid-appearing nonshadowing foci within the gallbladder lumen probably represent foci of tumefactive sludge, as polyps of this size would be unusual in a patient of this age. Nonetheless, short interval follow-up sonography is recommended to ensure resolution of these. In retrospect, at least one is visible on prior CT Negative for dilated ducts or gallstones Enlarged fatty liver, also described on recent CT scan Note incomplete visualization of the pancreas and portions of the abdominal aorta
--- NOTE | 2018-09-02 16:58 | Cardiology Report ---
APPROVED REPORT EKG Measurement Heart [id number] Sinus tachycardia Otherwise normal ECG
[2018-09-02 20:00] VITALS: BP 129/76
--- NOTE | 2018-09-02 20:43 | Cardiology Progress Note ---
Assessment/Plan Assessment/Plan The patient is seen and examined, full consult note will be dictated. Objective Last 24 Hour Vital Signs Date Time Temp Pulse Resp B/P (MAP) Pulse Ox O2 Delivery O2 Flow Rate FiO2 09/02/18 16:00 117 09/02/18 16:00 98.0 112 18 132/86 (101) 99 09/02/18 12:00 110 09/02/18 12:00 98.3 113 18 124/81 (95) 98 09/02/18 09:00 Room Air 09/02/18 08:00 98.2 112 18 128/88 (101) 100 09/02/18 08:00 111 09/02/18 04:00 98.1 120 18 142/60 (87) 99 09/02/18 03:24 116 09/02/18 01:35 Room Air 09/02/18 00:00 97.0 123 20 138/60 (86) 98 09/01/18 22:40 97.2 117 16 137/86 100 Room Air 117 09/01/18 22:10 127 16 Room Air Intake and Output 09/01/18 09/02/18 19:00 07:00 Intake Total 0 ml Balance 0 ml Intake Oral 0 ml Laboratory Tests Test 09/02/18 07:05 09/02/18 14:50 White Blood Count 14.5 K/UL (4.8-10.8) H Red Blood Count 4.24 M/UL (4.70-6.10) L Hemoglobin 12.7 G/DL (14.2-18.0) L Hematocrit 37.7 % (42.0-52.0) L Mean Corpuscular Volume 89 FL (80-99) Mean Corpuscular Hemoglobin 29.9 PG (27.0-31.0) Mean Corpuscular Hemoglobin Concent 33.7 G/DL (32.0-36.0) Red Cell Distribution Width 13.1 % (11.6-14.8) Platelet Count 92 K/UL (150-450) L Mean Platelet Volume 8.1 FL (6.5-10.1) Neutrophils (%) (Auto) % (45.0-75.0) Lymphocytes (%) (Auto) % (20.0-45.0) Monocytes (%) (Auto) % (1.0-10.0) Eosinophils (%) (Auto) % (0.0-3.0) Basophils (%) (Auto) % (0.0-2.0) Differential Total Cells Counted 100 Neutrophils % (Manual) 82 % (45-75) H Lymphocytes % (Manual) 8 % (20-45) L Monocytes % (Manual) 10 % (1-10) Eosinophils % (Manual) 0 % (0-3) Basophils % (Manual) 0 % (0-2) Band Neutrophils 0 % (0-8) Platelet Estimate Decreased L Platelet Morphology Normal Red Blood Cell Morphology Normal Sodium Level 127 MMOL/L (136-145) L Potassium Level 3.3 MMOL/L (3.5-5.1) L Chloride Level 89 MMOL/L (98-107) L Carbon Dioxide Level 16 MMOL/L (21-32) L Anion Gap 22 mmol/L (5-15) H Blood Urea Nitrogen 21 mg/dL (7-18) H Creatinine 1.3 MG/DL (0.55-1.30) Estimat Glomerular Filtration Rate > 60 mL/min (>60) Glucose Level 125 MG/DL (74-106) H Calcium Level 8.7 MG/DL (8.5-10.1) Total Bilirubin 6.7 MG/DL (0.2-1.0) H Direct Bilirubin 4.9 MG/DL (0.0-0.3) H Aspartate Amino Transf (AST/SGOT) 245 U/L (15-37) H Alanine Aminotransferase (ALT/SGPT) 94 U/L (12-78) H Alkaline Phosphatase 222 U/L (46-116) H C-Reactive Protein, Quantitative 1.6 mg/dL (0.00-0.90) H Total Protein 8.1 G/DL (6.4-8.2) Albumin 3.4 G/DL (3.4-5.0) Globulin 4.7 g/dL Albumin/Globulin Ratio 0.7 (1.0-2.7) L Lipase > 2000 U/L (73-393) H HIV (1&2) Antibody Rapid Negative (NEGATIVE) D-Dimer 3.92 mg/L FEU (0.00-0.49) H Bassem Mora MD Sep 02, 2018 20:43
--- NOTE | 2018-09-02 20:45 | Consultation ---
DATE OF CONSULTATION: 09/02/2018 INFECTIOUS DISEASES CONSULTATION CONSULTING PHYSICIAN: Anam Corona M.D. PRIMARY ATTENDING PHYSICIAN: Bessy Mccormick M.D. REASON FOR CONSULTATION: Acute pancreatitis. HISTORY OF PRESENT ILLNESS: The patient is a 28-year-old male, admitted last night from home because of abdominal pain, nausea, vomiting. Pain mostly only reported in the lower abdomen. The patient had no fever or other symptoms. PAST MEDICAL HISTORY: Significant for alcohol abuse, but the patient stated quit 3 months ago. ALLERGIES: No known drug allergies. MEDICATIONS: Getting [place], thiamine, folic acid, [place], Zofran, get a dose of Zosyn in the ER. SOCIAL HISTORY: History of alcohol abuse until 3 months ago. He is single, has a child. 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 REVIEW OF SYSTEMS: No fever. No chills. No nausea, no vomiting at the present time. No coughing. No chest pain. No problem passing urine. PHYSICAL EXAMINATION: VITAL SIGNS: Temperature 98.2, pulse 112, blood pressure 120/88. GENERAL APPEARANCE: No acute distress. Normal weight. HEAD AND NECK: The patient has icterus. No oral lesion. HEART: S1 and S2 regular. LUNGS: Clear. ABDOMEN: Soft. Tender in the upper part of the abdomen. EXTREMITIES: No edema. LABORATORY AND DIAGNOSTIC DATA: Sodium 127, potassium 3.2, chloride 89, bicarb 18. BUN 21, creatinine 1.3. Creatinine at the time of admission was 1.7. Bilirubin 6.7, direct bilirubin 4.9, AST 249, ALT 94, alkaline phosphatase is 222. Lipase more than 2000. The patient had a CT scan of the abdomen and pelvis, which showed fatty liver, hiatal hernia. IMPRESSION: 1. Acute pancreatitis, maybe secondary to alcohol abuse. 2. Hyponatremia. 3. Acute renal failure that is improving. 4. Fatty liver. 5. Hiatal hernia. RECOMMENDATION: 1. Continue Zosyn. 2. We will follow up the lipase level. 3. We will follow up the recommendations by terra cotta setter. At the end of my exam I thank Dr. Mccormick for involving me in the care of this patient. Anam Corona M.D. DR: Leo JOB#: [id number] CC: BRIDGETTE
--- NOTE | 2018-09-02 21:15 | History and Physical Report ---
DATE OF ADMISSION: 09/01/2018 HISTORY OF PRESENT ILLNESS: The patient is admitted for pancreatitis and also has abnormal LFTs and creatinine. Dr. Vaugnh is also consulted. The patient has leukocytosis, elevated LFTs, and pancreatitis. The patient also has hyponatremia and alcohol abuse as well. The patient is being admitted for pancreatitis, electrolyte imbalance, and abdominal pain as well as tachycardia. The patient stated that he has been vomiting, could not keep anything down for two weeks and abdominal pain for two weeks. The patient has history of alcohol abuse, also feels weak and has chills. Denies diarrhea. Denies rectal bleeding. Denies hematemesis. Denies shortness of breath. Denies cough. PAST MEDICAL HISTORY: Significant for alcohol abuse and anxiety. The patient takes lorazepam. PAST SURGICAL HISTORY: None. ALLERGIES: No known allergies. MEDICATIONS: Lorazepam. FAMILY HISTORY: Noncontributory. SOCIAL HISTORY: He has history of alcohol abuse. Denies history of drug abuse. Denies history of smoking. REVIEW OF SYSTEMS: HEENT: Denies headaches. Denies shortness of breath. Denies cough. CARDIOVASCULAR: No chest pain or orthopnea. GASTROINTESTINAL: Reports abdominal pain and vomiting for two weeks. No hematemesis. No diarrhea. EXTREMITIES: Denies lower extremity pain. CENTRAL NERVOUS SYSTEM: No change in vision or speech pattern, and feels very weak. PHYSICAL EXAMINATION: VITAL SIGNS: Temperature 98.1, pulse is 120, and blood pressure 142/60. HEENT: PERRLA. NECK: Supple. No lymphadenopathy. CHEST: Clear to auscultation. CARDIOVASCULAR: Tachycardia. GASTROINTESTINAL: Diffuse tenderness. No rebound. Abdomen is soft. No organomegaly. EXTREMITIES: No edema. Moves all four extremities. Reflexes on both sides. LABORATORY DATA: WBC of 6.4, hemoglobin of 15, and platelets of 106,000. Sodium 127, potassium 3.5, BUN of 24, creatinine of 1.7, and total bilirubin of 8. AST of 322, ALT of 119, and alkaline phosphatase of 290. Chest x-ray shows no acute process. Abdominal CT was done and that shows enlarged fatty liver, otherwise gallbladder sludge and [id number] hiatal hernia. ASSESSMENT AND PLAN: Basically, lipase is greater than 2000. The patient is admitted for pancreatitis. We kept NPO and we will give IV fluids. Dr. Vaughn is also seeing to see if there is any surgical abdomen for and also the patient has hyponatremia, alcohol abuse, and tachycardia. I have consulted Dr. Victoria, Dr. Hammer, Dr. Kendrick, Dr. Anam Corona, Dr. Mora, and Dr. Lozano for the alcohol withdrawal as well as for the treatment of LFTs and as well as for treatment of pancreatitis and to rule out any signs and symptoms of acute cholecystitis. Antibiotics per Dr. Anam Corona. Bessy Mccormick M.D. DR: WILLIAN JOB#: [id number] CC:
--- NOTE | 2018-09-02 23:15 | Consultation ---
DATE OF CONSULTATION: 09/02/2018 CARDIOLOGY CONSULTATION CONSULTING PHYSICIAN: Bassem Mora M.D. REFERRING PHYSICIAN: Bessy Mccormick M.D. REASON FOR CONSULTATION: Management of tachycardia. HISTORY OF PRESENT ILLNESS: The patient is a very unfortunate 28-year-old gentleman with history of alcoholism, last alcohol about three and half weeks ago, who presents to the hospital with abdominal pain, nausea, and vomiting for about two weeks. The patient did not have any coffee-ground emesis, fever, chills, chest pain, or shortness of breath. Initial vital signs in emergency department, blood pressure 149/95 mmHg and heart rate of 135. A 12-lead electrocardiogram done in the emergency department showed sinus tachycardia at a rate of [address] and T-wave abnormalities and normal QT interval. The patient underwent a series of workup in the emergency department including laboratory findings such as imaging study, which confirm acute pancreatitis with very high lipase level over 1999. The patient was also found to be having anion gap acidosis as well as acute kidney injury. He was admitted to telemetry for further evaluation and management. Cardiology consultation was made at request of Dr. Mccormick for managing tachycardia. PAST MEDICAL HISTORY: History of alcoholism. PAST SURGICAL HISTORY: None. FAMILY HISTORY: No premature coronary artery disease or arrhythmogenic in first-degree relatives. ALLERGIES: No known drug allergies. MEDICATIONS: List of medications in the outpatient setting including Ativan 1 mg p.o. three times daily. REVIEW OF SYSTEMS: A 12-system review done essentially negative except what was mentioned in history of present illness. PHYSICAL EXAMINATION: VITAL SIGNS: Blood pressure is 149/95, respirations of 16, pulse of 135, temperature of 97.3 degrees Fahrenheit, and O2 saturation 100% on room air. GENERAL: The patient is a very unfortunate 28-year-old gentleman, seen in Cardiology consultation at request of Dr. Mccormick, in no apparent respiratory distress. Alert and oriented x4. HEENT: Atraumatic and normocephalic. Anicteric. Pupils are equal, round, and reactive to light and accommodation. Extraocular muscles intact. NECK: JVP less than 5 cm. No carotid bruit. Carotid upstrokes 2+ bilaterally. CARDIOVASCULAR: Normal S1 and S2. Regular rate and rhythm. Tachycardic. No murmurs, gallops, or rubs. PMI is at fourth intercostal space in the midclavicular line. LUNGS: Clear to auscultation bilaterally. ABDOMEN: Slightly firm. Mild epigastric tenderness. Diminished bowel sounds. EXTREMITIES: No evidence of edema, clubbing, or cyanosis. LABORATORY FINDINGS: Sodium is 127, potassium is 3.5, chloride of 79, bicarbonate 30, BUN of 24 creatinine 1.7, glucose is 212, calcium is 10.1, and lipase over 2000. AST is 322 and ALT is 119. WBC is 16.4, hemoglobin of 15.5, hematocrit of 43.7, and platelet count is 106. INR is 1.1. Chest x-ray showed no acute cardiopulmonary disease. ASSESSMENT AND PLAN: The patient is a very unfortunate 28-year-old gentleman, seen in Cardiology consultation at request of Dr. Mccormick. 1. Sinus tachycardia. The management of sinus tachycardia is the management of the underlying treatment of underlying etiology. In this setting, the patient stated that his sinus tachycardia could be a combination of hypovolemia, as there is evidence of hyponatremia, most likely intravascular volume depletion and systemic inflammatory response disease in view of acute pancreatitis is also another etiology. Inadequate pain control associated with pancreatitis would be the third etiology. The patient does not require any AV samm agents at this point and bowel rest and hydration are pain control mainstay of therapy. 2. Alcoholic hepatitis. 3. Acute kidney injury due to intravascular volume depletion, most likely prerenal azotemia. I would like to thank, Dr. Mccormick, for allowing me to participate in the care of this patient. Bassem Mora M.D. DR: MELY JOB#: [id number] CC:
--- NOTE | 2018-09-02 23:37 | Consultation ---
History of Present Illness General Date patient seen: Sep 02, 2018 Chief Complaint: Vomiting Referring physician: RHIANNA POTTER Reason for Consultation: ABNORMAL LFTS Present Illness HPI 28-year-old gentleman with history of alcoholism, last alcohol about three and half weeks ago, who presents to the hospital with abdominal pain, nausea, and vomiting for about two weeks. the pt is tachy cardic and anxious Allergies: Coded Allergies: No Known Allergies (Unverified , 04/26/18) Medication History Scheduled Lorazepam* (Ativan*), 1 MG ORAL THREE TIMES A DAY Patient History Limited by: medical condition History Provided By: Patient, Medical Record Healthcare decision maker Resuscitation status Full Code Advanced Directive on File No Past Medical/Surgical History Past Medical/Surgical History: (1) Dehydration (2) Hyponatremia (3) Pancreatitis (4) Abdominal pain (5) Abnormal LFTs (liver function tests) Review of Systems Psychiatric: Reports: prior hx, anxiety, depressed feelings, emotional problems Physical Exam General Appearance: alert, moderate distress Neurologic: oriented x 3, responsive, depressed affect Last 24 Hour Vital Signs Date Time Temp Pulse Resp B/P (MAP) Pulse Ox O2 Delivery O2 Flow Rate FiO2 09/02/18 20:00 98.1 100 20 129/76 (93) 98 09/02/18 16:00 117 09/02/18 16:00 98.0 112 18 132/86 (101) 99 09/02/18 12:00 110 09/02/18 12:00 98.3 113 18 124/81 (95) 98 09/02/18 09:00 Room Air 09/02/18 08:00 98.2 112 18 128/88 (101) 100 09/02/18 08:00 111 09/02/18 04:00 98.1 120 18 142/60 (87) 99 09/02/18 03:24 116 09/02/18 01:35 Room Air 09/02/18 00:00 97.0 123 20 138/60 (86) 98 Intake and Output 09/01/18 09/02/18 19:00 07:00 Intake Total 0 ml Balance 0 ml Intake Oral 0 ml Laboratory Tests Test 09/02/18 07:05 09/02/18 14:50 09/02/18 20:30 White Blood Count 14.5 K/UL (4.8-10.8) H Red Blood Count 4.24 M/UL (4.70-6.10) L Hemoglobin 12.7 G/DL (14.2-18.0) L Hematocrit 37.7 % (42.0-52.0) L Mean Corpuscular Volume 89 FL (80-99) Mean Corpuscular Hemoglobin 29.9 PG (27.0-31.0) Mean Corpuscular Hemoglobin Concent 33.7 G/DL (32.0-36.0) Red Cell Distribution Width 13.1 % (11.6-14.8) Platelet Count 92 K/UL (150-450) L Mean Platelet Volume 8.1 FL (6.5-10.1) Neutrophils (%) (Auto) % (45.0-75.0) Lymphocytes (%) (Auto) % (20.0-45.0) Monocytes (%) (Auto) % (1.0-10.0) Eosinophils (%) (Auto) % (0.0-3.0) Basophils (%) (Auto) % (0.0-2.0) Differential Total Cells Counted 100 Neutrophils % (Manual) 82 % (45-75) H Lymphocytes % (Manual) 8 % (20-45) L Monocytes % (Manual) 10 % (1-10) Eosinophils % (Manual) 0 % (0-3) Basophils % (Manual) 0 % (0-2) Band Neutrophils 0 % (0-8) Platelet Estimate Decreased L Platelet Morphology Normal Red Blood Cell Morphology Normal Sodium Level 127 MMOL/L (136-145) L Potassium Level 3.3 MMOL/L (3.5-5.1) L Chloride Level 89 MMOL/L (98-107) L Carbon Dioxide Level 16 MMOL/L (21-32) L Anion Gap 22 mmol/L (5-15) H Blood Urea Nitrogen 21 mg/dL (7-18) H Creatinine 1.3 MG/DL (0.55-1.30) Estimat Glomerular Filtration Rate > 60 mL/min (>60) Glucose Level 125 MG/DL (74-106) H Calcium Level 8.7 MG/DL (8.5-10.1) Total Bilirubin 6.7 MG/DL (0.2-1.0) H Direct Bilirubin 4.9 MG/DL (0.0-0.3) H Aspartate Amino Transf (AST/SGOT) 245 U/L (15-37) H Alanine Aminotransferase (ALT/SGPT) 94 U/L (12-78) H Alkaline Phosphatase 222 U/L (46-116) H C-Reactive Protein, Quantitative 1.6 mg/dL (0.00-0.90) H Total Protein 8.1 G/DL (6.4-8.2) Albumin 3.4 G/DL (3.4-5.0) Globulin 4.7 g/dL Albumin/Globulin Ratio 0.7 (1.0-2.7) L Lipase > 2000 U/L (73-393) H HIV (1&2) Antibody Rapid Negative (NEGATIVE) D-Dimer 3.92 mg/L FEU (0.00-0.49) H Urine Opiates Screen Negative (NEGATIVE) Urine Barbiturates Screen Negative (NEGATIVE) Phencyclidine (PCP) Screen Negative (NEGATIVE) Urine Amphetamines Screen Negative (NEGATIVE) Urine Benzodiazepines Screen Positive (NEGATIVE) H Urine Cocaine Screen Negative (NEGATIVE) Urine Marijuana (THC) Screen Negative (NEGATIVE) Height (Feet): 5 Height (Inches): 8.00 Weight (Pounds): 173 Medications Current Medications Medications (Trade) Dose Ordered Sig/Solis Route PRN Reason Start Time Stop Time Status Last Admin Dose Admin Dextrose/ Electrolytes 1,000 ml @ 125 mls/hr Q8H IV 09/02/18 14:38 10/02/18 14:37 09/02/18 23:01 Diazepam (Valium) 10 mg EVERY 2 HOURS PRN ORAL For Anxiety 09/01/18 23:30 09/08/18 23:29 09/02/18 14:53 Famotidine (Pepcid I.v.) 20 mg Q12HR IVP 09/02/18 21:00 10/02/18 20:59 09/02/18 23:01 Fluoxetine HCl (PROzac) 20 mg DAILY ORAL 09/02/18 12:34 10/02/18 12:33 09/02/18 12:38 Folic Acid (Folate) 1 mg DAILY ORAL 09/02/18 09:00 10/02/18 08:59 09/02/18 08:33 Hydromorphone HCl (Dilaudid) 0.5 mg Q4H PRN IVP Severe Pain (Pain Scale 7-10) 09/02/18 09:15 09/09/18 01:14 Iopamidol (Isovue-300 100ml) 100 ml NOW PRN INJ Radiology Procedure 09/01/18 19:45 Mirtazapine (Remeron) 7.5 mg BEDTIME ORAL 09/02/18 21:00 10/02/18 20:59 09/02/18 22:37 Ondansetron HCl (Zofran) 4 mg Q6H PRN IVP Nausea & Vomiting 09/02/18 01:15 10/02/18 01:14 09/02/18 08:39 Piperacillin Sod/ Tazobactam Sod 3.375 gm/Sodium Chloride 110 ml @ 27.5 mls/hr EVERY 8 HOURS IVPB 09/02/18 14:00 09/07/18 13:59 09/02/18 22:37 Thiamine HCl (Vitamin B1) 100 mg DAILY ORAL 09/02/18 09:00 10/02/18 08:59 09/02/18 08:33 Assessment/Plan Problem List: (1) Alcohol dependence ICD Codes: F10.20 - Alcohol dependence, uncomplicated SNOMED: 41986188 Assessment/Plan Reno Price MD Sep 02, 2018 23:37
[2018-09-03] VITALS: BP 129/76
[2018-09-03 04:00] VITALS: BP 136/76
[2018-09-03 05:32] LABS: HEMATOCRIT 31.4 % (42.0-52.0); MEAN CORPUSCULAR VOLUME 88 FL (80-99); PLATELET COUNT 92 K/UL (150-450); RED BLOOD COUNT 3.56 M/UL (4.70-6.10); RED CELL DISTRIBUTION WIDTH 12.8 % (11.6-14.8); WHITE BLOOD COUNT 7.9 K/UL (4.8-10.8)
[2018-09-03 06:21] LABS: ALANINE AMINOTRANSFERASE 75 U/L (12-78); ALBUMIN/GLOBULIN RATIO 0.8 (1.0-2.7); ALKALINE PHOSPHATASE 197 U/L (46-116); ANION GAP 14 mmol/L (5-15); ASPARTATE AMINO TRANSFERASE 212 U/L (15-37); BILIRUBIN,TOTAL 7.2 MG/DL (0.2-1.0); BLOOD UREA NITROGEN 12 mg/dL (7-18); CALCIUM 8.6 MG/DL (8.5-10.1); CARBON DIOXIDE 23 MMOL/L (21-32); CHLORIDE 94 MMOL/L (98-107); CREATINE KINASE 161 U/L (26-308); CREATININE 1.2 MG/DL (0.55-1.30); GAMMA GLUTAMYL TRANSPEPTIDASE 3576 U/L (5-85); POTASSIUM 2.8 MMOL/L (3.5-5.1); SODIUM 129 MMOL/L (136-145)
[2018-09-03] MEDS: Piperacillin/Tazobactam 3.375 GM in NS 110 ML IVPB SCH ×3 (06:23→21:14)
[2018-09-03 06:42] LABS: BILIRUBIN,DIRECT 5.5 MG/DL (0.0-0.3)
[2018-09-03 07:39] LABS: PHOSPHORUS 0.7 MG/DL (2.5-4.9)
[2018-09-03 08:00] VITALS: BP 126/77
[2018-09-03 08:06] LABS: CHOLESTEROL 231 MG/DL (< 200); HDL CHOLESTEROL 53 MG/DL (40-60); TRIGLYCERIDES 153 MG/DL (30-150)
[2018-09-03] MEDS: Thiamine 100mg tab ORAL SCH (08:24)
--- NOTE | 2018-09-03 09:10 | General Progress Note ---
Assessment/Plan Assessment/Plan # Thrombocytopenia. Potential causes multifactorial, evaluate liver and viral etiologies to begin. Also could be realted tp underlying medications pt has received. --> Peripheral smear ordered to evaluate for blasts/schistocytes and is negative --> Hep panel pending and HIV is negative --> US abd ordered to evaluate for cirrhosis and hsm --> CT abd shows fatty liver. --> Abx and other meds have been reviewed. --> does have pancreatitis, eval for potential liver disease # Leukocytosis. Likely related to underlying infection versus reactive process. Now improved, has received course of antibiotics. --> Blood and urine cultures reviewed, micro pending --> Cont to monitor for improvement --> Imaging has been reviewed, shows no acute process --> Has been started on abx, empiric treatment # Pancreatitis with abdominal pain. GI is following, appreciate recs. --> Pt is NPO and on IVF --> GGT --> Zofran prn # Transaminitis -- as per gi eval GREATLY APPRECIATE CONSULTATION. Subjective HEENT: Denies: no symptoms, eye pain, blurred vision, tearing, double vision, ear pain, ear discharge, nose pain, nose congestion, throat pain, throat swelling, mouth pain, mouth swelling, other Cardiovascular: Denies: no symptoms, chest pain, edema, irregular heart rate, lightheadedness, palpitations, syncope, other Respiratory: Denies: no symptoms, cough, orthopnea, shortness of breath, SOB with excertion, SOB at rest, sputum, stridor, wheezing, other Gastrointestinal/Abdominal: Denies: no symptoms, abdomen distended, abdominal pain, black stools, tarry stools, blood in stool, constipated, diarrhea, difficulty swallowing, nausea, poor appetite, poor fluid intake, rectal bleeding , vomiting, other Genitourinary: Denies: no symptoms, burning, discharge, frequency, flank pain, hematuria, incontinence, pain, urgency, other Neurologic/Psychiatric: Denies: no symptoms, anxiety, depressed, emotional problems, headache, numbness, paresthesia, pre-existing deficit, seizure, tingling, tremors, weakness, other Endocrine: Denies: no symptoms, excessive sweating, flushing, intolerance to cold, intolerance to heat, increased hunger, increased thirst, increased urine, unexplained weight gain, unexplained weight loss, other Hematologic/Lymphatic: Denies: no symptoms, anemia, easy bleeding, easy bruising, other Allergies: Coded Allergies: No Known Allergies (Unverified , 04/26/18) Subjective awake and alert, less signs of distress, getting echo completed with the tech Objective Last 24 Hour Vital Signs Date Time Temp Pulse Resp B/P (MAP) Pulse Ox O2 Delivery O2 Flow Rate FiO2 09/03/18 08:00 97.2 94 20 126/77 (93) 98 09/03/18 04:00 115 09/03/18 04:00 98.1 105 20 136/76 (96) 98 09/03/18 00:00 97 09/03/18 00:00 98.0 104 20 129/76 (93) 99 09/02/18 21:00 Room Air 09/02/18 20:00 104 09/02/18 20:00 98.1 100 20 129/76 (93) 98 09/02/18 16:00 117 09/02/18 16:00 98.0 112 18 132/86 (101) 99 09/02/18 12:00 110 09/02/18 12:00 98.3 113 18 124/81 (95) 98 Intake and Output 09/02/18 09/03/18 19:00 07:00 Intake Total 703.75 ml 1476.53 ml Balance 703.75 ml 1476.53 ml Intake Oral 400 ml IV Total 703.75 ml 1076.53 ml # Voids 2 2 Laboratory Tests 09/02/18 14:50: D-Dimer 3.92H 09/02/18 20:30: Urine Opiates Screen Negative, Urine Barbiturates Screen Negative, Phencyclidine (PCP) Screen Negative, Urine Amphetamines Screen Negative, Urine Benzodiazepines Screen PositiveH, Urine Cocaine Screen Negative, Urine Marijuana (THC) Screen Negative 09/03/18 05:15: White Blood Count 7.9, Red Blood Count 3.56L, Hemoglobin 11.0L, Hematocrit 31.4L , Mean Corpuscular Volume 88, Mean Corpuscular Hemoglobin 31.0, Mean Corpuscular Hemoglobin Concent 35.1, Red Cell Distribution Width 12.8, Platelet Count 92L, Mean Platelet Volume 7.4, Neutrophils (%) (Auto) , Lymphocytes (%) ( Auto) , Monocytes (%) (Auto) , Eosinophils (%) (Auto) , Basophils (%) (Auto) , Differential Total Cells Counted 100, Neutrophils % (Manual) 78H, Lymphocytes % (Manual) 14L, Monocytes % (Manual) 8, Eosinophils % (Manual) 0, Basophils % ( Manual) 0, Band Neutrophils 0, Platelet Estimate DecreasedL, Platelet Morphology Normal, Hypochromasia 1+, Anisocytosis 1+, Sodium Level 129L, Potassium Level 2.8L, Chloride Level 94L, Carbon Dioxide Level 23, Anion Gap 14 , Blood Urea Nitrogen 12, Creatinine 1.2, Estimat Glomerular Filtration Rate > 60, Glucose Level 128H, Lactic Acid Level 0.80, Uric Acid 4.0, Calcium Level 8.6 , Phosphorus Level 0.7*L, Magnesium Level 1.9, Total Bilirubin 7.2H, Direct Bilirubin 5.5H, Gamma Glutamyl Transpeptidase 3576H, Aspartate Amino Transf (AST /SGOT) 212H, Alanine Aminotransferase (ALT/SGPT) 75, Alkaline Phosphatase 197H, Total Creatine Kinase 161, Pro-B-Type Natriuretic Peptide 11, Total Protein 7.0 , Albumin 3.0L, Globulin 4.0, Albumin/Globulin Ratio 0.8L, Triglycerides Level 153H, Cholesterol Level 231H, LDL Cholesterol 153H, HDL Cholesterol 53, Cholesterol/HDL Ratio 4.4, Lipase > 2000H, Thyroid Stimulating Hormone (TSH) 2.186, Hepatitis A IgM Antibody [Pending], Hepatitis B Surface Antigen [Pending] , Hepatitis B Core IgM Antibody [Pending], Hepatitis C Antibody [Pending] Height (Feet): 5 Height (Inches): 8.00 Weight (Pounds): 173 General Appearance: alert EENT: TMs normal Neck: normal inspection Cardiovascular: regular rhythm Respiratory/Chest: lungs clear Abdomen: soft Extremities: non-tender Edema: no edema noted Leg (L), no edema noted Leg (R) Edema: mild edema Neurologic: alert Skin: warm/dry Pawel Ferrera MD Sep 03, 2018 09:10
--- NOTE | 2018-09-03 09:31 | General Progress Note ---
Assessment/Plan Assessment/Plan (1) Abdominal pain (2) Pancreatitis Patient will be continued on [place] and Dilaudid. D/w Dr. Hammer and he concurred. Subjective Date patient seen: Sep 03, 2018 Time patient seen: 07:00 - am Constitutional: Reports: weakness HEENT: Reports: no symptoms Cardiovascular: Reports: no symptoms Respiratory: Reports: no symptoms Gastrointestinal/Abdominal: Reports: abdominal pain Genitourinary: Reports: no symptoms Neurologic/Psychiatric: Reports: weakness Endocrine: Reports: no symptoms Hematologic/Lymphatic: Reports: no symptoms Allergies: Coded Allergies: No Known Allergies (Unverified , 04/26/18) Subjective Patient is in bed no signs of pain or distress. Pain is tolerated on the Dilaudid and [place] as needed. Objective Last 24 Hour Vital Signs Date Time Temp Pulse Resp B/P (MAP) Pulse Ox O2 Delivery O2 Flow Rate FiO2 09/03/18 08:00 97.2 94 20 126/77 (93) 98 09/03/18 04:00 115 09/03/18 04:00 98.1 105 20 136/76 (96) 98 09/03/18 00:00 97 09/03/18 00:00 98.0 104 20 129/76 (93) 99 09/02/18 21:00 Room Air 09/02/18 20:00 104 09/02/18 20:00 98.1 100 20 129/76 (93) 98 09/02/18 16:00 117 09/02/18 16:00 98.0 112 18 132/86 (101) 99 09/02/18 12:00 110 09/02/18 12:00 98.3 113 18 124/81 (95) 98 Intake and Output 09/02/18 09/03/18 19:00 07:00 Intake Total 703.75 ml 1476.53 ml Balance 703.75 ml 1476.53 ml Intake Oral 400 ml IV Total 703.75 ml 1076.53 ml # Voids 2 2 Laboratory Tests 09/02/18 14:50: D-Dimer 3.92H 09/02/18 20:30: Urine Opiates Screen Negative, Urine Barbiturates Screen Negative, Phencyclidine (PCP) Screen Negative, Urine Amphetamines Screen Negative, Urine Benzodiazepines Screen PositiveH, Urine Cocaine Screen Negative, Urine Marijuana (THC) Screen Negative 09/03/18 05:15: White Blood Count 7.9, Red Blood Count 3.56L, Hemoglobin 11.0L, Hematocrit 31.4L , Mean Corpuscular Volume 88, Mean Corpuscular Hemoglobin 31.0, Mean Corpuscular Hemoglobin Concent 35.1, Red Cell Distribution Width 12.8, Platelet Count 92L, Mean Platelet Volume 7.4, Neutrophils (%) (Auto) , Lymphocytes (%) ( Auto) , Monocytes (%) (Auto) , Eosinophils (%) (Auto) , Basophils (%) (Auto) , Differential Total Cells Counted 100, Neutrophils % (Manual) 78H, Lymphocytes % (Manual) 14L, Monocytes % (Manual) 8, Eosinophils % (Manual) 0, Basophils % ( Manual) 0, Band Neutrophils 0, Platelet Estimate DecreasedL, Platelet Morphology Normal, Hypochromasia 1+, Anisocytosis 1+, Sodium Level 129L, Potassium Level 2.8L, Chloride Level 94L, Carbon Dioxide Level 23, Anion Gap 14 , Blood Urea Nitrogen 12, Creatinine 1.2, Estimat Glomerular Filtration Rate > 60, Glucose Level 128H, Lactic Acid Level 0.80, Uric Acid 4.0, Calcium Level 8.6 , Phosphorus Level 0.7*L, Magnesium Level 1.9, Total Bilirubin 7.2H, Direct Bilirubin 5.5H, Gamma Glutamyl Transpeptidase 3576H, Aspartate Amino Transf (AST /SGOT) 212H, Alanine Aminotransferase (ALT/SGPT) 75, Alkaline Phosphatase 197H, Total Creatine Kinase 161, Pro-B-Type Natriuretic Peptide 11, Total Protein 7.0 , Albumin 3.0L, Globulin 4.0, Albumin/Globulin Ratio 0.8L, Triglycerides Level 153H, Cholesterol Level 231H, LDL Cholesterol 153H, HDL Cholesterol 53, Cholesterol/HDL Ratio 4.4, Lipase > 2000H, Thyroid Stimulating Hormone (TSH) 2.186, Hepatitis A IgM Antibody [Pending], Hepatitis B Surface Antigen [Pending] , Hepatitis B Core IgM Antibody [Pending], Hepatitis C Antibody [Pending] Height (Feet): 5 Height (Inches): 8.00 Weight (Pounds): 173 General Appearance: no apparent distress, alert EENT: PERRL/EOMI Neck: normal alignment, supple Cardiovascular: normal rate, regular rhythm Respiratory/Chest: lungs clear, normal breath sounds Abdomen: tender Extremities: non-tender Edema: no edema noted Arm (L), no edema noted Arm (R), no edema noted Leg (L), no edema noted Leg (R), no edema noted Pedal (L), no edema noted Pedal (R), no edema noted Generalized Neurologic: alert, oriented x 3 Skin: warm/dry David La Sep 03, 2018 09:31
[2018-09-03] MEDS ORDERED: Norco 5mg/325mg tab ORAL PRN (09:45)
[2018-09-03] MEDS ORDERED: Potassium Phosphate 30 MM in NS 275 ML IV ONE (10:00)
[2018-09-03 12:00] VITALS: BP 123/83
--- NOTE | 2018-09-03 12:06 | Nephrology Progress Note ---
Assessment/Plan Problem List: (1) Pancreatitis (2) Abnormal LFTs (liver function tests) (3) Abdominal pain (4) Alcohol dependence (5) Hyponatremia Assessment Pancreatitis high Lipase Abnormal LFTs Hyponatremia Dehydration I Plan IV Fluids- Protonix clear liquids Monitor lytes Phos and K and Mag supplement as needed Subjective ROS Limited/Unobtainable: No Constitutional: Reports: malaise Objective Objective Last 24 Hour Vital Signs Date Time Temp Pulse Resp B/P (MAP) Pulse Ox O2 Delivery O2 Flow Rate FiO2 09/03/18 09:00 Room Air 09/03/18 08:00 115 09/03/18 08:00 97.2 94 20 126/77 (93) 98 09/03/18 04:00 115 09/03/18 04:00 98.1 105 20 136/76 (96) 98 09/03/18 00:00 97 09/03/18 00:00 98.0 104 20 129/76 (93) 99 09/02/18 21:00 Room Air 09/02/18 20:00 104 09/02/18 20:00 98.1 100 20 129/76 (93) 98 09/02/18 16:00 117 09/02/18 16:00 98.0 112 18 132/86 (101) 99 Intake and Output 09/02/18 09/03/18 19:00 07:00 Intake Total 703.75 ml 1476.53 ml Balance 703.75 ml 1476.53 ml Intake Oral 400 ml IV Total 703.75 ml 1076.53 ml # Voids 2 2 Laboratory Tests 09/02/18 14:50: D-Dimer 3.92H 09/02/18 20:30: Urine Opiates Screen Negative, Urine Barbiturates Screen Negative, Phencyclidine (PCP) Screen Negative, Urine Amphetamines Screen Negative, Urine Benzodiazepines Screen PositiveH, Urine Cocaine Screen Negative, Urine Marijuana (THC) Screen Negative 09/03/18 05:15: White Blood Count 7.9, Red Blood Count 3.56L, Hemoglobin 11.0L, Hematocrit 31.4L , Mean Corpuscular Volume 88, Mean Corpuscular Hemoglobin 31.0, Mean Corpuscular Hemoglobin Concent 35.1, Red Cell Distribution Width 12.8, Platelet Count 92L, Mean Platelet Volume 7.4, Neutrophils (%) (Auto) , Lymphocytes (%) ( Auto) , Monocytes (%) (Auto) , Eosinophils (%) (Auto) , Basophils (%) (Auto) , Differential Total Cells Counted 100, Neutrophils % (Manual) 78H, Lymphocytes % (Manual) 14L, Monocytes % (Manual) 8, Eosinophils % (Manual) 0, Basophils % ( Manual) 0, Band Neutrophils 0, Platelet Estimate DecreasedL, Platelet Morphology Normal, Hypochromasia 1+, Anisocytosis 1+, Sodium Level 129L, Potassium Level 2.8L, Chloride Level 94L, Carbon Dioxide Level 23, Anion Gap 14 , Blood Urea Nitrogen 12, Creatinine 1.2, Estimat Glomerular Filtration Rate > 60, Glucose Level 128H, Lactic Acid Level 0.80, Uric Acid 4.0, Calcium Level 8.6 , Phosphorus Level 0.7*L, Magnesium Level 1.9, Total Bilirubin 7.2H, Direct Bilirubin 5.5H, Gamma Glutamyl Transpeptidase 3576H, Aspartate Amino Transf (AST /SGOT) 212H, Alanine Aminotransferase (ALT/SGPT) 75, Alkaline Phosphatase 197H, Total Creatine Kinase 161, Pro-B-Type Natriuretic Peptide 11, Total Protein 7.0 , Albumin 3.0L, Globulin 4.0, Albumin/Globulin Ratio 0.8L, Triglycerides Level 153H, Cholesterol Level 231H, LDL Cholesterol 153H, HDL Cholesterol 53, Cholesterol/HDL Ratio 4.4, Lipase > 2000H, Thyroid Stimulating Hormone (TSH) 2.186, Hepatitis A IgM Antibody [Pending], Hepatitis B Surface Antigen [Pending] , Hepatitis B Core IgM Antibody [Pending], Hepatitis C Antibody [Pending] Height (Feet): 5 Height (Inches): 8.00 Weight (Pounds): 173 General Appearance: no apparent distress Cardiovascular: tachycardia Respiratory/Chest: lungs clear Abdomen: soft, distended Deion Kendrick MD Sep 03, 2018 12:06
--- NOTE | 2018-09-03 13:52 | GI Progress Note ---
Assessment/Plan Problems: (1) Abnormal LFTs (liver function tests) ICD Codes: R94.5 - Abnormal results of liver function studies SNOMED: 321087388 (2) Abdominal pain ICD Codes: R10.9 - Unspecified abdominal pain SNOMED: 37070553 (3) Pancreatitis ICD Codes: K85.90 - Acute pancreatitis without necrosis or infection, unspecified SNOMED: 55504543 (4) Hyponatremia ICD Codes: E87.1 - Hypo-osmolality and hyponatremia SNOMED: 01057261 (5) Dehydration ICD Codes: E86.0 - Dehydration SNOMED: 34573750 (6) Alcohol dependence ICD Codes: F10.20 - Alcohol dependence, uncomplicated SNOMED: 80274504 Qualifiers: Qualified Codes: F10.288 - Alcohol dependence with other alcohol-induced disorder Status: unchanged Status Narrative Discussed with Dr. Victoria. Assessment/Plan denies ETOH/Drug use , last ETOH use x3 weeks mild transaminitis, elevated bilirubin, elevated GGT >> possible liver damage due to overuse of alcohol vs pancreatitis elevated lipase levels, pancreatitis unknown etiology utox negative fu MRCP, will consider endoscopy bowel rest >> CLD + IVFs pain mgmt zofran prn trend LFTs, lipase fu labs The patient was seen and examined at bedside and all new and available data was reviewed in the patients chart. I agree with the above findings, impression and plan. (Patient seen earlier today. Signature stamp does not reflect patient encounter time.). - Luis Armando Victoria MD Subjective Gastrointestinal/Abdominal: Reports: no symptoms Objective Last 24 Hour Vital Signs Date Time Temp Pulse Resp B/P (MAP) Pulse Ox O2 Delivery O2 Flow Rate FiO2 09/03/18 12:00 99.1 94 20 123/83 (96) 98 09/03/18 09:00 Room Air 09/03/18 08:00 115 09/03/18 08:00 97.2 94 20 126/77 (93) 98 09/03/18 04:00 115 09/03/18 04:00 98.1 105 20 136/76 (96) 98 09/03/18 00:00 97 09/03/18 00:00 98.0 104 20 129/76 (93) 99 09/02/18 21:00 Room Air 09/02/18 20:00 104 09/02/18 20:00 98.1 100 20 129/76 (93) 98 09/02/18 16:00 117 09/02/18 16:00 98.0 112 18 132/86 (101) 99 Intake and Output 09/02/18 09/03/18 19:00 07:00 Intake Total 703.75 ml 1476.53 ml Balance 703.75 ml 1476.53 ml Intake Oral 400 ml IV Total 703.75 ml 1076.53 ml # Voids 2 2 Laboratory Tests Test 09/02/18 14:50 09/02/18 20:30 09/03/18 05:15 D-Dimer 3.92 mg/L FEU (0.00-0.49) H Urine Opiates Screen Negative (NEGATIVE) Urine Barbiturates Screen Negative (NEGATIVE) Phencyclidine (PCP) Screen Negative (NEGATIVE) Urine Amphetamines Screen Negative (NEGATIVE) Urine Benzodiazepines Screen Positive (NEGATIVE) H Urine Cocaine Screen Negative (NEGATIVE) Urine Marijuana (THC) Screen Negative (NEGATIVE) White Blood Count 7.9 K/UL (4.8-10.8) Red Blood Count 3.56 M/UL (4.70-6.10) L Hemoglobin 11.0 G/DL (14.2-18.0) L Hematocrit 31.4 % (42.0-52.0) L Mean Corpuscular Volume 88 FL (80-99) Mean Corpuscular Hemoglobin 31.0 PG (27.0-31.0) Mean Corpuscular Hemoglobin Concent 35.1 G/DL (32.0-36.0) Red Cell Distribution Width 12.8 % (11.6-14.8) Platelet Count 92 K/UL (150-450) L Mean Platelet Volume 7.4 FL (6.5-10.1) Neutrophils (%) (Auto) % (45.0-75.0) Lymphocytes (%) (Auto) % (20.0-45.0) Monocytes (%) (Auto) % (1.0-10.0) Eosinophils (%) (Auto) % (0.0-3.0) Basophils (%) (Auto) % (0.0-2.0) Differential Total Cells Counted 100 Neutrophils % (Manual) 78 % (45-75) H Lymphocytes % (Manual) 14 % (20-45) L Monocytes % (Manual) 8 % (1-10) Eosinophils % (Manual) 0 % (0-3) Basophils % (Manual) 0 % (0-2) Band Neutrophils 0 % (0-8) Platelet Estimate Decreased L Platelet Morphology Normal Hypochromasia 1+ Anisocytosis 1+ Sodium Level 129 MMOL/L (136-145) L Potassium Level 2.8 MMOL/L (3.5-5.1) L Chloride Level 94 MMOL/L (98-107) L Carbon Dioxide Level 23 MMOL/L (21-32) Anion Gap 14 mmol/L (5-15) Blood Urea Nitrogen 12 mg/dL (7-18) Creatinine 1.2 MG/DL (0.55-1.30) Estimat Glomerular Filtration Rate > 60 mL/min (>60) Glucose Level 128 MG/DL (74-106) H Lactic Acid Level 0.80 mmol/L (0.4-2.0) Uric Acid 4.0 MG/DL (2.6-7.2) Calcium Level 8.6 MG/DL (8.5-10.1) Phosphorus Level 0.7 MG/DL (2.5-4.9) *L Magnesium Level 1.9 MG/DL (1.8-2.4) Total Bilirubin 7.2 MG/DL (0.2-1.0) H Direct Bilirubin 5.5 MG/DL (0.0-0.3) H Gamma Glutamyl Transpeptidase 3576 U/L (5-85) H Aspartate Amino Transf (AST/SGOT) 212 U/L (15-37) H Alanine Aminotransferase (ALT/SGPT) 75 U/L (12-78) Alkaline Phosphatase 197 U/L (46-116) H Total Creatine Kinase 161 U/L (26-308) Pro-B-Type Natriuretic Peptide 11 pg/mL (0-125) Total Protein 7.0 G/DL (6.4-8.2) Albumin 3.0 G/DL (3.4-5.0) L Globulin 4.0 g/dL Albumin/Globulin Ratio 0.8 (1.0-2.7) L Triglycerides Level 153 MG/DL (30-150) H Cholesterol Level 231 MG/DL (< 200) H LDL Cholesterol 153 mg/dL (<100) H HDL Cholesterol 53 MG/DL (40-60) Cholesterol/HDL Ratio 4.4 (3.3-4.4) Lipase > 2000 U/L (73-393) H Thyroid Stimulating Hormone (TSH) 2.186 uiU/mL (0.358-3.740) Hepatitis A IgM Antibody Pending Hepatitis B Surface Antigen Pending Hepatitis B Core IgM Antibody Pending Hepatitis C Antibody Pending Height (Feet): 5 Height (Inches): 8.00 Weight (Pounds): 173 General Appearance: WD/WN, no apparent distress, alert Cardiovascular: normal rate Respiratory/Chest: normal breath sounds, no respiratory distress Abdominal Exam: normal bowel sounds, non tender, soft Extremities: normal range of motion, non-tender Juliette Diop NP Sep 03, 2018 13:52
--- NOTE | 2018-09-03 14:47 | Diagnostic Imaging Report ---
Indication: Nausea vomiting x2 weeks, jaundice Technique: Coronal and axial single shot fast spin-echo breath-hold, axial T2 FRFSE, 2-D thick slab MRCP, AXIAL 2-D FIESTA fat saturated, axial 3-D dual echo breath-hold, water weighted axial LAVA FLEX, revealed 3-D MRCP images were obtained of the abdomen. MIP reconstructions were generated of the bile ducts Comparison: Reference made to abdomen pelvis CT of 09/01/2018, ultrasound of 09/02/2018 Findings: Gallbladder luminal signal is abnormal, demonstrating lower than normal T2 signal, and high signal on the lateral flex images. The right side of the gallbladder lumen, adjacent to the wall, there is an irregular 12 mm diameter low signal structure which corresponds to the subtle area of high attenuation demonstrated on the recent CT scan as well as the abnormality demonstrated on recent ultrasound. On some of the sequences, low signal material seen dependently within the gallbladder lumen. This could indicate small calculi. Gallbladder wall is not thickened. There is no biliary ductal dilatation demonstrated. No biliary ductal filling defects are evident. There is no evidence of pancreatic ductal dilatation. As described on earlier exams, the liver is somewhat enlarged. It demonstrates considerable signal decrease on the fat-suppressed images, consistent with fatty change. No focal abnormality is demonstrated. The pancreas, spleen, adrenals, kidneys are unremarkable. Impression: 1.2 cm low signal lesion apparently adherent to the lateral gallbladder wall, also corresponding to abnormality described on recent ultrasound and CT. Given its persistence, this could represent a gallbladder polyp. Given its size, surgical consultation should be considered. Alternatively, this could represent a wall adherent gallstone or unusual wall adherent tumefactive sludge Low signal material layering dependently within the gallbladder lumen, could represent small calculi that are occult on recent sonography, or could represent dependent layering of sludge. No evidence of biliary ductal dilatation or choledocholithiasis Enlarged fatty liver, also previously described Findings discussed by phone with Dr. Victoria at the time of interpretation
[2018-09-03 16:00] VITALS: BP 118/80
--- NOTE | 2018-09-03 17:02 | Infectious Diseases Prog Note ---
Assessment/Plan Assessment/Plan A: 1. Acute pancreatitis, maybe secondary to alcohol abuse. 2. Hyponatremia. 3. Acute renal failure that is improving. 4. Fatty liver. 5. Hiatal hernia. 6. Hyponatremia P: May discontinue Zosyn Subjective ROS Limited/Unobtainable: Yes Constitutional: Reports: no symptoms Gastrointestinal/Abdominal: Reports: no symptoms Genitourinary: Reports: no symptoms Allergies: Coded Allergies: No Known Allergies (Unverified , 04/26/18) Objective Vital Signs Last 24 Hour Vital Signs Date Time Temp Pulse Resp B/P (MAP) Pulse Ox O2 Delivery O2 Flow Rate FiO2 09/03/18 16:00 99.2 98 20 118/80 (93) 99 09/03/18 12:00 99.1 94 20 123/83 (96) 98 09/03/18 12:00 101 09/03/18 09:00 Room Air 09/03/18 08:00 115 09/03/18 08:00 97.2 94 20 126/77 (93) 98 09/03/18 04:00 115 09/03/18 04:00 98.1 105 20 136/76 (96) 98 09/03/18 00:00 97 09/03/18 00:00 98.0 104 20 129/76 (93) 99 09/02/18 21:00 Room Air 09/02/18 20:00 104 09/02/18 20:00 98.1 100 20 129/76 (93) 98 Height (Feet): 5 Height (Inches): 8.00 Weight (Pounds): 173 General Appearance: no acute distress HEENT: mucous membranes moist Respiratory/Chest: lungs clear Cardiovascular: normal rate Abdomen: soft, non tender Extremities: no edema Neurologic/Psychiatric: alert, oriented x 3, responsive Laboratory Tests Test 09/02/18 20:30 09/03/18 05:15 Urine Opiates Screen Negative (NEGATIVE) Urine Barbiturates Screen Negative (NEGATIVE) Phencyclidine (PCP) Screen Negative (NEGATIVE) Urine Amphetamines Screen Negative (NEGATIVE) Urine Benzodiazepines Screen Positive (NEGATIVE) H Urine Cocaine Screen Negative (NEGATIVE) Urine Marijuana (THC) Screen Negative (NEGATIVE) White Blood Count 7.9 K/UL (4.8-10.8) Red Blood Count 3.56 M/UL (4.70-6.10) L Hemoglobin 11.0 G/DL (14.2-18.0) L Hematocrit 31.4 % (42.0-52.0) L Mean Corpuscular Volume 88 FL (80-99) Mean Corpuscular Hemoglobin 31.0 PG (27.0-31.0) Mean Corpuscular Hemoglobin Concent 35.1 G/DL (32.0-36.0) Red Cell Distribution Width 12.8 % (11.6-14.8) Platelet Count 92 K/UL (150-450) L Mean Platelet Volume 7.4 FL (6.5-10.1) Neutrophils (%) (Auto) % (45.0-75.0) Lymphocytes (%) (Auto) % (20.0-45.0) Monocytes (%) (Auto) % (1.0-10.0) Eosinophils (%) (Auto) % (0.0-3.0) Basophils (%) (Auto) % (0.0-2.0) Differential Total Cells Counted 100 Neutrophils % (Manual) 78 % (45-75) H Lymphocytes % (Manual) 14 % (20-45) L Monocytes % (Manual) 8 % (1-10) Eosinophils % (Manual) 0 % (0-3) Basophils % (Manual) 0 % (0-2) Band Neutrophils 0 % (0-8) Platelet Estimate Decreased L Platelet Morphology Normal Hypochromasia 1+ Anisocytosis 1+ Sodium Level 129 MMOL/L (136-145) L Potassium Level 2.8 MMOL/L (3.5-5.1) L Chloride Level 94 MMOL/L (98-107) L Carbon Dioxide Level 23 MMOL/L (21-32) Anion Gap 14 mmol/L (5-15) Blood Urea Nitrogen 12 mg/dL (7-18) Creatinine 1.2 MG/DL (0.55-1.30) Estimat Glomerular Filtration Rate > 60 mL/min (>60) Glucose Level 128 MG/DL (74-106) H Lactic Acid Level 0.80 mmol/L (0.4-2.0) Uric Acid 4.0 MG/DL (2.6-7.2) Calcium Level 8.6 MG/DL (8.5-10.1) Phosphorus Level 0.7 MG/DL (2.5-4.9) *L Magnesium Level 1.9 MG/DL (1.8-2.4) Total Bilirubin 7.2 MG/DL (0.2-1.0) H Direct Bilirubin 5.5 MG/DL (0.0-0.3) H Gamma Glutamyl Transpeptidase 3576 U/L (5-85) H Aspartate Amino Transf (AST/SGOT) 212 U/L (15-37) H Alanine Aminotransferase (ALT/SGPT) 75 U/L (12-78) Alkaline Phosphatase 197 U/L (46-116) H Total Creatine Kinase 161 U/L (26-308) Pro-B-Type Natriuretic Peptide 11 pg/mL (0-125) Total Protein 7.0 G/DL (6.4-8.2) Albumin 3.0 G/DL (3.4-5.0) L Globulin 4.0 g/dL Albumin/Globulin Ratio 0.8 (1.0-2.7) L Triglycerides Level 153 MG/DL (30-150) H Cholesterol Level 231 MG/DL (< 200) H LDL Cholesterol 153 mg/dL (<100) H HDL Cholesterol 53 MG/DL (40-60) Cholesterol/HDL Ratio 4.4 (3.3-4.4) Lipase > 2000 U/L (73-393) H Thyroid Stimulating Hormone (TSH) 2.186 uiU/mL (0.358-3.740) Hepatitis A IgM Antibody Pending Hepatitis B Surface Antigen Pending Hepatitis B Core IgM Antibody Pending Hepatitis C Antibody Pending Current Medications Medications (Trade) Dose Ordered Sig/[place] Route PRN Reason Start Time Stop Time Status Last Admin Dose Admin Acetaminophen/ Hydrocodone Bitart ([place] 5/325) 1 tab Q4H PRN ORAL Moderate Pain (Pain Scale 4-6) 09/03/18 09:45 09/10/18 09:44 Dextrose/ Electrolytes 1,000 ml @ 125 mls/hr Q8H IV 09/02/18 14:38 10/02/18 14:37 09/03/18 14:19 Diazepam (Valium) 10 mg EVERY 2 HOURS PRN ORAL For Anxiety 09/01/18 23:30 09/08/18 23:29 09/03/18 08:24 Fluoxetine HCl (PROzac) 20 mg DAILY ORAL 09/02/18 12:34 10/02/18 12:33 09/03/18 08:24 Folic Acid (Folate) 1 mg DAILY ORAL 09/02/18 09:00 10/02/18 08:59 09/03/18 08:24 Hydromorphone HCl (Dilaudid) 0.5 mg Q4H PRN IVP Severe Pain (Pain Scale 7-10) 09/02/18 09:15 09/09/18 01:14 Iopamidol (Isovue-300 100ml) 100 ml NOW PRN INJ Radiology Procedure 09/01/18 19:45 Mirtazapine (Remeron) 7.5 mg BEDTIME ORAL 09/02/18 21:00 10/02/18 20:59 09/02/18 22:37 Ondansetron HCl (Zofran) 4 mg Q6H PRN IVP Nausea & Vomiting 09/02/18 01:15 10/02/18 01:14 09/02/18 08:39 Pantoprazole (Protonix) 40 mg EVERY 12 HOURS ORAL 09/03/18 21:00 10/03/18 20:59 Piperacillin Sod/ Tazobactam Sod 3.375 gm/Sodium Chloride 110 ml @ 27.5 mls/hr EVERY 8 HOURS IVPB 09/02/18 14:00 09/07/18 13:59 09/03/18 14:11 Thiamine HCl (Vitamin B1) 100 mg DAILY ORAL 09/02/18 09:00 10/02/18 08:59 09/03/18 08:24 Anam Corona MD Sep 03, 2018 17:02
--- NOTE | 2018-09-03 18:13 | General Surgery Progress Note ---
General Surgery-Progress Note Subjective Symptoms: improved, pain absent Objective Last 24 Hour Vital Signs Date Time Temp Pulse Resp B/P (MAP) Pulse Ox O2 Delivery O2 Flow Rate FiO2 09/03/18 16:00 91 09/03/18 16:00 99.2 98 20 118/80 (93) 99 09/03/18 12:00 99.1 94 20 123/83 (96) 98 09/03/18 12:00 101 09/03/18 09:00 Room Air 09/03/18 08:00 115 09/03/18 08:00 97.2 94 20 126/77 (93) 98 09/03/18 04:00 115 09/03/18 04:00 98.1 105 20 136/76 (96) 98 09/03/18 00:00 97 09/03/18 00:00 98.0 104 20 129/76 (93) 99 09/02/18 21:00 Room Air 09/02/18 20:00 104 09/02/18 20:00 98.1 100 20 129/76 (93) 98 I&O Intake and Output 09/02/18 09/03/18 18:59 06:59 Intake Total 551.25 ml 1537.5 ml Balance 551.25 ml 1537.5 ml Intake Oral 400 ml IV Total 551.25 ml 1137.5 ml # Voids 2 2 Respiratory: clear Abdomen: soft, flat, non-tender, present bowel sounds Extremities: no tenderness Laboratory Tests Test 09/02/18 20:30 09/03/18 05:15 Urine Opiates Screen Negative (NEGATIVE) Urine Barbiturates Screen Negative (NEGATIVE) Phencyclidine (PCP) Screen Negative (NEGATIVE) Urine Amphetamines Screen Negative (NEGATIVE) Urine Benzodiazepines Screen Positive (NEGATIVE) H Urine Cocaine Screen Negative (NEGATIVE) Urine Marijuana (THC) Screen Negative (NEGATIVE) White Blood Count 7.9 K/UL (4.8-10.8) Red Blood Count 3.56 M/UL (4.70-6.10) L Hemoglobin 11.0 G/DL (14.2-18.0) L Hematocrit 31.4 % (42.0-52.0) L Mean Corpuscular Volume 88 FL (80-99) Mean Corpuscular Hemoglobin 31.0 PG (27.0-31.0) Mean Corpuscular Hemoglobin Concent 35.1 G/DL (32.0-36.0) Red Cell Distribution Width 12.8 % (11.6-14.8) Platelet Count 92 K/UL (150-450) L Mean Platelet Volume 7.4 FL (6.5-10.1) Neutrophils (%) (Auto) % (45.0-75.0) Lymphocytes (%) (Auto) % (20.0-45.0) Monocytes (%) (Auto) % (1.0-10.0) Eosinophils (%) (Auto) % (0.0-3.0) Basophils (%) (Auto) % (0.0-2.0) Differential Total Cells Counted 100 Neutrophils % (Manual) 78 % (45-75) H Lymphocytes % (Manual) 14 % (20-45) L Monocytes % (Manual) 8 % (1-10) Eosinophils % (Manual) 0 % (0-3) Basophils % (Manual) 0 % (0-2) Band Neutrophils 0 % (0-8) Platelet Estimate Decreased L Platelet Morphology Normal Hypochromasia 1+ Anisocytosis 1+ Sodium Level 129 MMOL/L (136-145) L Potassium Level 2.8 MMOL/L (3.5-5.1) L Chloride Level 94 MMOL/L (98-107) L Carbon Dioxide Level 23 MMOL/L (21-32) Anion Gap 14 mmol/L (5-15) Blood Urea Nitrogen 12 mg/dL (7-18) Creatinine 1.2 MG/DL (0.55-1.30) Estimat Glomerular Filtration Rate > 60 mL/min (>60) Glucose Level 128 MG/DL (74-106) H Lactic Acid Level 0.80 mmol/L (0.4-2.0) Uric Acid 4.0 MG/DL (2.6-7.2) Calcium Level 8.6 MG/DL (8.5-10.1) Phosphorus Level 0.7 MG/DL (2.5-4.9) *L Magnesium Level 1.9 MG/DL (1.8-2.4) Total Bilirubin 7.2 MG/DL (0.2-1.0) H Direct Bilirubin 5.5 MG/DL (0.0-0.3) H Gamma Glutamyl Transpeptidase 3576 U/L (5-85) H Aspartate Amino Transf (AST/SGOT) 212 U/L (15-37) H Alanine Aminotransferase (ALT/SGPT) 75 U/L (12-78) Alkaline Phosphatase 197 U/L (46-116) H Total Creatine Kinase 161 U/L (26-308) Pro-B-Type Natriuretic Peptide 11 pg/mL (0-125) Total Protein 7.0 G/DL (6.4-8.2) Albumin 3.0 G/DL (3.4-5.0) L Globulin 4.0 g/dL Albumin/Globulin Ratio 0.8 (1.0-2.7) L Triglycerides Level 153 MG/DL (30-150) H Cholesterol Level 231 MG/DL (< 200) H LDL Cholesterol 153 mg/dL (<100) H HDL Cholesterol 53 MG/DL (40-60) Cholesterol/HDL Ratio 4.4 (3.3-4.4) Lipase > 2000 U/L (73-393) H Thyroid Stimulating Hormone (TSH) 2.186 uiU/mL (0.358-3.740) Hepatitis A IgM Antibody Pending Hepatitis B Surface Antigen Pending Hepatitis B Core IgM Antibody Pending Hepatitis C Antibody Pending Assessment Additional Comments pancreatitis resolving Plan Additional Comments continue as before Marla Vaughn MD Sep 03, 2018 18:13
--- NOTE | 2018-09-03 19:22 | Cardiology Progress Note ---
Assessment/Plan Assessment/Plan 1. Sinus tachycardia, continue hydration and pain control. 2. Alcoholic hepatitis with associated thrombocytopenia. 3. Acute kidney injury improving, continue hydration. 4. Hyponatremia due to intravascular volume depletion, continue saline infusion. 5. Hypokalemia, replace K and keep >4.0. Subjective Subjective Sinus rhythm at rate of 91. Objective Last 24 Hour Vital Signs Date Time Temp Pulse Resp B/P (MAP) Pulse Ox O2 Delivery O2 Flow Rate FiO2 09/03/18 16:00 91 09/03/18 16:00 99.2 98 20 118/80 (93) 99 09/03/18 12:00 99.1 94 20 123/83 (96) 98 09/03/18 12:00 101 09/03/18 09:00 Room Air 09/03/18 08:00 115 09/03/18 08:00 97.2 94 20 126/77 (93) 98 09/03/18 04:00 115 09/03/18 04:00 98.1 105 20 136/76 (96) 98 09/03/18 00:00 97 09/03/18 00:00 98.0 104 20 129/76 (93) 99 09/02/18 21:00 Room Air 09/02/18 20:00 104 09/02/18 20:00 98.1 100 20 129/76 (93) 98 Intake and Output 09/02/18 09/03/18 18:59 06:59 Intake Total 551.25 ml 1537.5 ml Balance 551.25 ml 1537.5 ml Intake Oral 400 ml IV Total 551.25 ml 1137.5 ml # Voids 2 2 Laboratory Tests Test 09/02/18 20:30 09/03/18 05:15 Urine Opiates Screen Negative (NEGATIVE) Urine Barbiturates Screen Negative (NEGATIVE) Phencyclidine (PCP) Screen Negative (NEGATIVE) Urine Amphetamines Screen Negative (NEGATIVE) Urine Benzodiazepines Screen Positive (NEGATIVE) H Urine Cocaine Screen Negative (NEGATIVE) Urine Marijuana (THC) Screen Negative (NEGATIVE) White Blood Count 7.9 K/UL (4.8-10.8) Red Blood Count 3.56 M/UL (4.70-6.10) L Hemoglobin 11.0 G/DL (14.2-18.0) L Hematocrit 31.4 % (42.0-52.0) L Mean Corpuscular Volume 88 FL (80-99) Mean Corpuscular Hemoglobin 31.0 PG (27.0-31.0) Mean Corpuscular Hemoglobin Concent 35.1 G/DL (32.0-36.0) Red Cell Distribution Width 12.8 % (11.6-14.8) Platelet Count 92 K/UL (150-450) L Mean Platelet Volume 7.4 FL (6.5-10.1) Neutrophils (%) (Auto) % (45.0-75.0) Lymphocytes (%) (Auto) % (20.0-45.0) Monocytes (%) (Auto) % (1.0-10.0) Eosinophils (%) (Auto) % (0.0-3.0) Basophils (%) (Auto) % (0.0-2.0) Differential Total Cells Counted 100 Neutrophils % (Manual) 78 % (45-75) H Lymphocytes % (Manual) 14 % (20-45) L Monocytes % (Manual) 8 % (1-10) Eosinophils % (Manual) 0 % (0-3) Basophils % (Manual) 0 % (0-2) Band Neutrophils 0 % (0-8) Platelet Estimate Decreased L Platelet Morphology Normal Hypochromasia 1+ Anisocytosis 1+ Sodium Level 129 MMOL/L (136-145) L Potassium Level 2.8 MMOL/L (3.5-5.1) L Chloride Level 94 MMOL/L (98-107) L Carbon Dioxide Level 23 MMOL/L (21-32) Anion Gap 14 mmol/L (5-15) Blood Urea Nitrogen 12 mg/dL (7-18) Creatinine 1.2 MG/DL (0.55-1.30) Estimat Glomerular Filtration Rate > 60 mL/min (>60) Glucose Level 128 MG/DL (74-106) H Lactic Acid Level 0.80 mmol/L (0.4-2.0) Uric Acid 4.0 MG/DL (2.6-7.2) Calcium Level 8.6 MG/DL (8.5-10.1) Phosphorus Level 0.7 MG/DL (2.5-4.9) *L Magnesium Level 1.9 MG/DL (1.8-2.4) Total Bilirubin 7.2 MG/DL (0.2-1.0) H Direct Bilirubin 5.5 MG/DL (0.0-0.3) H Gamma Glutamyl Transpeptidase 3576 U/L (5-85) H Aspartate Amino Transf (AST/SGOT) 212 U/L (15-37) H Alanine Aminotransferase (ALT/SGPT) 75 U/L (12-78) Alkaline Phosphatase 197 U/L (46-116) H Total Creatine Kinase 161 U/L (26-308) Pro-B-Type Natriuretic Peptide 11 pg/mL (0-125) Total Protein 7.0 G/DL (6.4-8.2) Albumin 3.0 G/DL (3.4-5.0) L Globulin 4.0 g/dL Albumin/Globulin Ratio 0.8 (1.0-2.7) L Triglycerides Level 153 MG/DL (30-150) H Cholesterol Level 231 MG/DL (< 200) H LDL Cholesterol 153 mg/dL (<100) H HDL Cholesterol 53 MG/DL (40-60) Cholesterol/HDL Ratio 4.4 (3.3-4.4) Lipase > 2000 U/L (73-393) H Thyroid Stimulating Hormone (TSH) 2.186 uiU/mL (0.358-3.740) Hepatitis A IgM Antibody Pending Hepatitis B Surface Antigen Pending Hepatitis B Core IgM Antibody Pending Hepatitis C Antibody Pending Objective HEENT: Atraumatic and normocephalic. Anicteric. Pupils are equal, round, and reactive to light and accommodation. Extraocular muscles intact. NECK: JVP less than 5 cm. No carotid bruit. Carotid upstrokes 2+ bilaterally. CARDIOVASCULAR: Normal S1 and S2. Regular rate and rhythm. No murmurs, gallops, or rubs. PMI is at fourth intercostal space in the midclavicular line. LUNGS: Clear to auscultation bilaterally. ABDOMEN: Slightly firm. Mild epigastric tenderness. Diminished bowel sounds. EXTREMITIES: No evidence of edema, clubbing, or cyanosis. Bassem Mora MD Sep 03, 2018 19:22
--- NOTE | 2018-09-03 19:40 | General Progress Note ---
Assessment/Plan Problem List: (1) Alcohol dependence ICD Codes: F10.20 - Alcohol dependence, uncomplicated SNOMED: 20902012 Qualifiers: Qualified Codes: F10.288 - Alcohol dependence with other alcohol-induced disorder Assessment/Plan valium prozac Subjective Neurologic/Psychiatric: Reports: anxiety, depressed, emotional problems Allergies: Coded Allergies: No Known Allergies (Unverified , 04/26/18) Objective Last 24 Hour Vital Signs Date Time Temp Pulse Resp B/P (MAP) Pulse Ox O2 Delivery O2 Flow Rate FiO2 09/03/18 16:00 91 09/03/18 16:00 99.2 98 20 118/80 (93) 99 09/03/18 12:00 99.1 94 20 123/83 (96) 98 09/03/18 12:00 101 09/03/18 09:00 Room Air 09/03/18 08:00 115 09/03/18 08:00 97.2 94 20 126/77 (93) 98 09/03/18 04:00 115 09/03/18 04:00 98.1 105 20 136/76 (96) 98 09/03/18 00:00 97 09/03/18 00:00 98.0 104 20 129/76 (93) 99 09/02/18 21:00 Room Air 09/02/18 20:00 104 09/02/18 20:00 98.1 100 20 129/76 (93) 98 Intake and Output 09/02/18 09/03/18 18:59 06:59 Intake Total 551.25 ml 1537.5 ml Balance 551.25 ml 1537.5 ml Intake Oral 400 ml IV Total 551.25 ml 1137.5 ml # Voids 2 2 Laboratory Tests 09/02/18 20:30: Urine Opiates Screen Negative, Urine Barbiturates Screen Negative, Phencyclidine (PCP) Screen Negative, Urine Amphetamines Screen Negative, Urine Benzodiazepines Screen PositiveH, Urine Cocaine Screen Negative, Urine Marijuana (THC) Screen Negative 09/03/18 05:15: White Blood Count 7.9, Red Blood Count 3.56L, Hemoglobin 11.0L, Hematocrit 31.4L , Mean Corpuscular Volume 88, Mean Corpuscular Hemoglobin 31.0, Mean Corpuscular Hemoglobin Concent 35.1, Red Cell Distribution Width 12.8, Platelet Count 92L, Mean Platelet Volume 7.4, Neutrophils (%) (Auto) , Lymphocytes (%) ( Auto) , Monocytes (%) (Auto) , Eosinophils (%) (Auto) , Basophils (%) (Auto) , Differential Total Cells Counted 100, Neutrophils % (Manual) 78H, Lymphocytes % (Manual) 14L, Monocytes % (Manual) 8, Eosinophils % (Manual) 0, Basophils % ( Manual) 0, Band Neutrophils 0, Platelet Estimate DecreasedL, Platelet Morphology Normal, Hypochromasia 1+, Anisocytosis 1+, Sodium Level 129L, Potassium Level 2.8L, Chloride Level 94L, Carbon Dioxide Level 23, Anion Gap 14 , Blood Urea Nitrogen 12, Creatinine 1.2, Estimat Glomerular Filtration Rate > 60, Glucose Level 128H, Lactic Acid Level 0.80, Uric Acid 4.0, Calcium Level 8.6 , Phosphorus Level 0.7*L, Magnesium Level 1.9, Total Bilirubin 7.2H, Direct Bilirubin 5.5H, Gamma Glutamyl Transpeptidase 3576H, Aspartate Amino Transf (AST /SGOT) 212H, Alanine Aminotransferase (ALT/SGPT) 75, Alkaline Phosphatase 197H, Total Creatine Kinase 161, Pro-B-Type Natriuretic Peptide 11, Total Protein 7.0 , Albumin 3.0L, Globulin 4.0, Albumin/Globulin Ratio 0.8L, Triglycerides Level 153H, Cholesterol Level 231H, LDL Cholesterol 153H, HDL Cholesterol 53, Cholesterol/HDL Ratio 4.4, Lipase > 2000H, Thyroid Stimulating Hormone (TSH) 2.186, Hepatitis A IgM Antibody [Pending], Hepatitis B Surface Antigen [Pending] , Hepatitis B Core IgM Antibody [Pending], Hepatitis C Antibody [Pending] Height (Feet): 5 Height (Inches): 8.00 Weight (Pounds): 173 General Appearance: alert, moderate distress Neurologic: oriented x 3, responsive, depressed affect Reno Lozano MD Sep 03, 2018 19:40
[2018-09-03 20:00] VITALS: BP 124/84
--- NOTE | 2018-09-03 21:34 | General Progress Note ---
Assessment/Plan Problem List: (1) Dehydration ICD Codes: E86.0 - Dehydration SNOMED: 02278774 (2) Pancreatitis ICD Codes: K85.90 - Acute pancreatitis without necrosis or infection, unspecified SNOMED: 34100934 (3) Abdominal pain ICD Codes: R10.9 - Unspecified abdominal pain SNOMED: 05469676 (4) Abnormal LFTs (liver function tests) ICD Codes: R94.5 - Abnormal results of liver function studies SNOMED: 692583604 (5) Alcohol dependence ICD Codes: F10.20 - Alcohol dependence, uncomplicated SNOMED: 75286987 Qualifiers: Qualified Codes: F10.288 - Alcohol dependence with other alcohol-induced disorder Status: progressing Assessment/Plan afebrile vitals stable pancreatitis is improving abdominal pain is improving etoh dependence Subjective Gastrointestinal/Abdominal: Reports: abdominal pain Allergies: Coded Allergies: No Known Allergies (Unverified , 04/26/18) Objective Last 24 Hour Vital Signs Date Time Temp Pulse Resp B/P (MAP) Pulse Ox O2 Delivery O2 Flow Rate FiO2 09/03/18 20:00 98.4 93 19 124/84 (97) 97 09/03/18 16:00 91 09/03/18 16:00 99.2 98 20 118/80 (93) 99 09/03/18 12:00 99.1 94 20 123/83 (96) 98 09/03/18 12:00 101 09/03/18 09:00 Room Air 09/03/18 08:00 115 09/03/18 08:00 97.2 94 20 126/77 (93) 98 09/03/18 04:00 115 09/03/18 04:00 98.1 105 20 136/76 (96) 98 09/03/18 00:00 97 09/03/18 00:00 98.0 104 20 129/76 (93) 99 Intake and Output 09/02/18 09/03/18 18:59 06:59 Intake Total 551.25 ml 1537.5 ml Balance 551.25 ml 1537.5 ml Intake Oral 400 ml IV Total 551.25 ml 1137.5 ml # Voids 2 2 Laboratory Tests 09/03/18 05:15: White Blood Count 7.9, Red Blood Count 3.56L, Hemoglobin 11.0L, Hematocrit 31.4L , Mean Corpuscular Volume 88, Mean Corpuscular Hemoglobin 31.0, Mean Corpuscular Hemoglobin Concent 35.1, Red Cell Distribution Width 12.8, Platelet Count 92L, Mean Platelet Volume 7.4, Neutrophils (%) (Auto) , Lymphocytes (%) ( Auto) , Monocytes (%) (Auto) , Eosinophils (%) (Auto) , Basophils (%) (Auto) , Differential Total Cells Counted 100, Neutrophils % (Manual) 78H, Lymphocytes % (Manual) 14L, Monocytes % (Manual) 8, Eosinophils % (Manual) 0, Basophils % ( Manual) 0, Band Neutrophils 0, Platelet Estimate DecreasedL, Platelet Morphology Normal, Hypochromasia 1+, Anisocytosis 1+, Sodium Level 129L, Potassium Level 2.8L, Chloride Level 94L, Carbon Dioxide Level 23, Anion Gap 14 , Blood Urea Nitrogen 12, Creatinine 1.2, Estimat Glomerular Filtration Rate > 60, Glucose Level 128H, Lactic Acid Level 0.80, Uric Acid 4.0, Calcium Level 8.6 , Phosphorus Level 0.7*L, Magnesium Level 1.9, Total Bilirubin 7.2H, Direct Bilirubin 5.5H, Gamma Glutamyl Transpeptidase 3576H, Aspartate Amino Transf (AST /SGOT) 212H, Alanine Aminotransferase (ALT/SGPT) 75, Alkaline Phosphatase 197H, Total Creatine Kinase 161, Pro-B-Type Natriuretic Peptide 11, Total Protein 7.0 , Albumin 3.0L, Globulin 4.0, Albumin/Globulin Ratio 0.8L, Triglycerides Level 153H, Cholesterol Level 231H, LDL Cholesterol 153H, HDL Cholesterol 53, Cholesterol/HDL Ratio 4.4, Lipase > 2000H, Thyroid Stimulating Hormone (TSH) 2.186, Hepatitis A IgM Antibody [Pending], Hepatitis B Surface Antigen [Pending] , Hepatitis B Core IgM Antibody [Pending], Hepatitis C Antibody [Pending] Height (Feet): 5 Height (Inches): 8.00 Weight (Pounds): 173 Abdomen: tender Bessy Mccormick MD Sep 03, 2018 21:34
[2018-09-04] VITALS: BP 132/71
[2018-09-04 04:00] VITALS: BP 122/79
[2018-09-04] MEDS: Piperacillin/Tazobactam 3.375 GM in NS 110 ML IVPB SCH ×2 (06:00→13:03)
[2018-09-04 06:41] LABS: BASOPHILS % (AUTO) 1.1 % (0.0-2.0); EOSINOPHILS % (AUTO) 1.8 % (0.0-3.0); HEMATOCRIT 29.7 % (42.0-52.0); HEMOGLOBIN 10.7 G/DL (14.2-18.0); LYMPHOCYTES % (AUTO) 14.7 % (20.0-45.0); MEAN CORPUSCULAR VOLUME 89 FL (80-99); MONOCYTES % (AUTO) 9.1 % (1.0-10.0); NEUTROPHILS % (AUTO) 73.3 % (45.0-75.0); PLATELET COUNT 106 K/UL (150-450); RED BLOOD COUNT 3.34 M/UL (4.70-6.10); RED CELL DISTRIBUTION WIDTH 13.2 % (11.6-14.8); WHITE BLOOD COUNT 7.4 K/UL (4.8-10.8)
[2018-09-04 07:04] LABS: ALANINE AMINOTRANSFERASE 61 U/L (12-78); ALBUMIN 2.7 G/DL (3.4-5.0); ALBUMIN/GLOBULIN RATIO 0.7 (1.0-2.7); ALKALINE PHOSPHATASE 185 U/L (46-116); ANION GAP 9 mmol/L (5-15); ASPARTATE AMINO TRANSFERASE 155 U/L (15-37); BILIRUBIN,TOTAL 5.5 MG/DL (0.2-1.0); BLOOD UREA NITROGEN 3 mg/dL (7-18); CALCIUM 8.3 MG/DL (8.5-10.1); CARBON DIOXIDE 27 MMOL/L (21-32); CHLORIDE 99 MMOL/L (98-107); CREATININE 0.9 MG/DL (0.55-1.30); SODIUM 135 MMOL/L (136-145)
[2018-09-04 07:07] LABS: BILIRUBIN,DIRECT 4.6 MG/DL (0.0-0.3); POTASSIUM 2.5 MMOL/L (3.5-5.1)
[2018-09-04 07:51] VITALS: BP 122/81
--- NOTE | 2018-09-04 09:02 | Nephrology Progress Note ---
Assessment/Plan Problem List: (1) Pancreatitis (2) Abnormal LFTs (liver function tests) (3) Abdominal pain (4) Alcohol dependence (5) Hyponatremia Assessment tolerating clear liquids Pancreatitis high Lipase Abnormal LFTs Hyponatremia Dehydration I Plan IV Fluids- K and Phos and Mag supplement as needed Protonix clear liquids Monitor lytes Phos and K and Mag supplement as needed Subjective ROS Limited/Unobtainable: No Objective Objective Last 24 Hour Vital Signs Date Time Temp Pulse Resp B/P (MAP) Pulse Ox O2 Delivery O2 Flow Rate FiO2 09/04/18 07:51 98.4 88 18 122/81 (95) 100 09/04/18 04:00 97.5 90 18 122/79 (93) 97 09/04/18 04:00 85 09/04/18 00:00 84 09/04/18 00:00 97.7 86 18 132/71 (91) 97 09/03/18 21:00 Room Air 09/03/18 20:00 100 09/03/18 20:00 98.4 93 19 124/84 (97) 97 09/03/18 16:00 91 09/03/18 16:00 99.2 98 20 118/80 (93) 99 09/03/18 12:00 99.1 94 20 123/83 (96) 98 09/03/18 12:00 101 Intake and Output 09/03/18 09/04/18 19:00 07:00 Intake Total 985 ml 1744.6 ml Output Total 700 ml Balance 285 ml 1744.6 ml Intake Oral 860 ml 240 ml IV Total 125 ml 1504.6 ml Output Urine Total 700 ml # Voids 2 Laboratory Tests 09/04/18 05:32: White Blood Count 7.4, Red Blood Count 3.34L, Hemoglobin 10.7L, Hematocrit 29.7L , Mean Corpuscular Volume 89, Mean Corpuscular Hemoglobin 31.9H, Mean Corpuscular Hemoglobin Concent 35.8, Red Cell Distribution Width 13.2, Platelet Count 106L, Mean Platelet Volume 7.9, Neutrophils (%) (Auto) 73.3, Lymphocytes ( %) (Auto) 14.7L, Monocytes (%) (Auto) 9.1, Eosinophils (%) (Auto) 1.8, Basophils (%) (Auto) 1.1, Sodium Level 135L, Potassium Level 2.5*L, Chloride Level 99, Carbon Dioxide Level 27, Anion Gap 9, Blood Urea Nitrogen 3L, Creatinine 0.9, Estimat Glomerular Filtration Rate > 60, Glucose Level 136H, Hemoglobin A1c 5.2, Uric Acid 1.5L, Calcium Level 8.3L, Phosphorus Level 2.0L, Magnesium Level 1.7L, Total Bilirubin 5.5H, Direct Bilirubin 4.6H, Aspartate Amino Transf (AST/SGOT) 155H, Alanine Aminotransferase (ALT/SGPT) 61, Alkaline Phosphatase 185H, C-Reactive Protein, Quantitative 5.1H, Total Protein 6.6, Albumin 2.7L, Globulin 3.9, Albumin/Globulin Ratio 0.7L, Amylase Level 510*H, Lipase > 2000H Height (Feet): 5 Height (Inches): 8.00 Weight (Pounds): 173 General Appearance: no apparent distress Cardiovascular: tachycardia Respiratory/Chest: lungs clear Abdomen: soft Objective no change Deion Kendrick MD Sep 04, 2018 09:02
[2018-09-04] MEDS: Thiamine 100mg tab ORAL SCH (09:12)
[2018-09-04] MEDS: Docusate Sod/Senna tab ORAL SCH ×2 (09:12→17:08)
--- NOTE | 2018-09-04 09:19 | General Progress Note ---
Assessment/Plan Assessment/Plan (1) Abdominal pain (2) Pancreatitis Patient will be continued on [place] and Dilaudid. D/w Dr. Hammer and he concurred. Subjective Date patient seen: Sep 04, 2018 Time patient seen: 07:45 - am Constitutional: Reports: no symptoms HEENT: Reports: no symptoms Cardiovascular: Reports: no symptoms Respiratory: Reports: no symptoms Gastrointestinal/Abdominal: Reports: no symptoms Genitourinary: Reports: no symptoms Neurologic/Psychiatric: Reports: no symptoms Endocrine: Reports: no symptoms Hematologic/Lymphatic: Reports: no symptoms Allergies: Coded Allergies: No Known Allergies (Unverified , 04/26/18) Subjective Patient shows no signs of pain or distress. He is in bed and reports no pain at this time. Objective Last 24 Hour Vital Signs Date Time Temp Pulse Resp B/P (MAP) Pulse Ox O2 Delivery O2 Flow Rate FiO2 09/04/18 07:51 98.4 88 18 122/81 (95) 100 09/04/18 04:00 97.5 90 18 122/79 (93) 97 09/04/18 04:00 85 09/04/18 00:00 84 09/04/18 00:00 97.7 86 18 132/71 (91) 97 09/03/18 21:00 Room Air 09/03/18 20:00 100 09/03/18 20:00 98.4 93 19 124/84 (97) 97 09/03/18 16:00 91 09/03/18 16:00 99.2 98 20 118/80 (93) 99 09/03/18 12:00 99.1 94 20 123/83 (96) 98 09/03/18 12:00 101 Intake and Output 09/03/18 09/04/18 19:00 07:00 Intake Total 985 ml 1744.6 ml Output Total 700 ml Balance 285 ml 1744.6 ml Intake Oral 860 ml 240 ml IV Total 125 ml 1504.6 ml Output Urine Total 700 ml # Voids 2 Laboratory Tests 09/04/18 05:32: White Blood Count 7.4, Red Blood Count 3.34L, Hemoglobin 10.7L, Hematocrit 29.7L , Mean Corpuscular Volume 89, Mean Corpuscular Hemoglobin 31.9H, Mean Corpuscular Hemoglobin Concent 35.8, Red Cell Distribution Width 13.2, Platelet Count 106L, Mean Platelet Volume 7.9, Neutrophils (%) (Auto) 73.3, Lymphocytes ( %) (Auto) 14.7L, Monocytes (%) (Auto) 9.1, Eosinophils (%) (Auto) 1.8, Basophils (%) (Auto) 1.1, Sodium Level 135L, Potassium Level 2.5*L, Chloride Level 99, Carbon Dioxide Level 27, Anion Gap 9, Blood Urea Nitrogen 3L, Creatinine 0.9, Estimat Glomerular Filtration Rate > 60, Glucose Level 136H, Hemoglobin A1c 5.2, Uric Acid 1.5L, Calcium Level 8.3L, Phosphorus Level 2.0L, Magnesium Level 1.7L, Total Bilirubin 5.5H, Direct Bilirubin 4.6H, Aspartate Amino Transf (AST/SGOT) 155H, Alanine Aminotransferase (ALT/SGPT) 61, Alkaline Phosphatase 185H, C-Reactive Protein, Quantitative 5.1H, Total Protein 6.6, Albumin 2.7L, Globulin 3.9, Albumin/Globulin Ratio 0.7L, Amylase Level 510*H, Lipase > 2000H Height (Feet): 5 Height (Inches): 8.00 Weight (Pounds): 173 General Appearance: no apparent distress, alert EENT: PERRL/EOMI, normal ENT inspection Neck: normal alignment, supple Cardiovascular: normal rate, regular rhythm Respiratory/Chest: lungs clear, normal breath sounds Abdomen: non tender, soft Extremities: non-tender Edema: no edema noted Arm (L), no edema noted Arm (R), no edema noted Leg (L), no edema noted Leg (R), no edema noted Pedal (L), no edema noted Pedal (R), no edema noted Generalized Neurologic: alert, oriented x 3 Skin: normal pigmentation David La Sep 04, 2018 09:19
[2018-09-04] MEDS ORDERED: Potassium Phosphate 30 MM in NS 275 ML IV SCH (09:30)
--- NOTE | 2018-09-04 10:48 | GI Progress Note ---
Assessment/Plan Problems: (1) Abnormal LFTs (liver function tests) ICD Codes: R94.5 - Abnormal results of liver function studies SNOMED: 374933505 (2) Abdominal pain ICD Codes: R10.9 - Unspecified abdominal pain SNOMED: 40777391 (3) Pancreatitis ICD Codes: K85.90 - Acute pancreatitis without necrosis or infection, unspecified SNOMED: 20312928 (4) Hyponatremia ICD Codes: E87.1 - Hypo-osmolality and hyponatremia SNOMED: 63929726 (5) Dehydration ICD Codes: E86.0 - Dehydration SNOMED: 60670274 (6) Alcohol dependence ICD Codes: F10.20 - Alcohol dependence, uncomplicated SNOMED: 62047002 Qualifiers: Qualified Codes: F10.288 - Alcohol dependence with other alcohol-induced disorder Status: unchanged Status Narrative Discussed with Dr. Victoria. Assessment/Plan denies ETOH/Drug use , last ETOH use x3 weeks mild transaminitis, elevated bilirubin, elevated GGT >> possible liver damage due to overuse of alcohol vs pancreatitis elevated lipase levels, pancreatitis unknown etiology utox negative hepatitis panel negative MRCP reviewed >> possible 1.2 cm gallbladder polyp. No evidence of biliary ductal dilatation or choledocholithiasis. Enlarged fatty liver. FLD, adv as tolerated cont IVFs pain mgmt zofran prn trend LFTs, lipase fu labs The patient was seen and examined at bedside and all new and available data was reviewed in the patients chart. I agree with the above findings, impression and plan. (Patient seen earlier today. Signature stamp does not reflect patient encounter time.). - Luis Armando Victoria MD Subjective Gastrointestinal/Abdominal: Reports: no symptoms Objective Last 24 Hour Vital Signs Date Time Temp Pulse Resp B/P (MAP) Pulse Ox O2 Delivery O2 Flow Rate FiO2 09/04/18 09:00 Room Air 09/04/18 08:00 106 09/04/18 07:51 98.4 88 18 122/81 (95) 100 09/04/18 04:00 97.5 90 18 122/79 (93) 97 09/04/18 04:00 85 09/04/18 00:00 84 09/04/18 00:00 97.7 86 18 132/71 (91) 97 09/03/18 21:00 Room Air 09/03/18 20:00 100 09/03/18 20:00 98.4 93 19 124/84 (97) 97 09/03/18 16:00 91 09/03/18 16:00 99.2 98 20 118/80 (93) 99 09/03/18 12:00 99.1 94 20 123/83 (96) 98 09/03/18 12:00 101 Intake and Output 09/03/18 09/04/18 19:00 07:00 Intake Total 985 ml 1744.6 ml Output Total 700 ml Balance 285 ml 1744.6 ml Intake Oral 860 ml 240 ml IV Total 125 ml 1504.6 ml Output Urine Total 700 ml # Voids 2 Laboratory Tests Test 09/04/18 05:32 White Blood Count 7.4 K/UL (4.8-10.8) Red Blood Count 3.34 M/UL (4.70-6.10) L Hemoglobin 10.7 G/DL (14.2-18.0) L Hematocrit 29.7 % (42.0-52.0) L Mean Corpuscular Volume 89 FL (80-99) Mean Corpuscular Hemoglobin 31.9 PG (27.0-31.0) H Mean Corpuscular Hemoglobin Concent 35.8 G/DL (32.0-36.0) Red Cell Distribution Width 13.2 % (11.6-14.8) Platelet Count 106 K/UL (150-450) L Mean Platelet Volume 7.9 FL (6.5-10.1) Neutrophils (%) (Auto) 73.3 % (45.0-75.0) Lymphocytes (%) (Auto) 14.7 % (20.0-45.0) L Monocytes (%) (Auto) 9.1 % (1.0-10.0) Eosinophils (%) (Auto) 1.8 % (0.0-3.0) Basophils (%) (Auto) 1.1 % (0.0-2.0) Sodium Level 135 MMOL/L (136-145) L Potassium Level 2.5 MMOL/L (3.5-5.1) *L Chloride Level 99 MMOL/L (98-107) Carbon Dioxide Level 27 MMOL/L (21-32) Anion Gap 9 mmol/L (5-15) Blood Urea Nitrogen 3 mg/dL (7-18) L Creatinine 0.9 MG/DL (0.55-1.30) Estimat Glomerular Filtration Rate > 60 mL/min (>60) Glucose Level 136 MG/DL (74-106) H Hemoglobin A1c 5.2 % (4.3-6.0) Uric Acid 1.5 MG/DL (2.6-7.2) L Calcium Level 8.3 MG/DL (8.5-10.1) L Phosphorus Level 2.0 MG/DL (2.5-4.9) L Magnesium Level 1.7 MG/DL (1.8-2.4) L Total Bilirubin 5.5 MG/DL (0.2-1.0) H Direct Bilirubin 4.6 MG/DL (0.0-0.3) H Aspartate Amino Transf (AST/SGOT) 155 U/L (15-37) H Alanine Aminotransferase (ALT/SGPT) 61 U/L (12-78) Alkaline Phosphatase 185 U/L (46-116) H C-Reactive Protein, Quantitative 5.1 mg/dL (0.00-0.90) H Total Protein 6.6 G/DL (6.4-8.2) Albumin 2.7 G/DL (3.4-5.0) L Globulin 3.9 g/dL Albumin/Globulin Ratio 0.7 (1.0-2.7) L Amylase Level 510 U/L (25-115) *H Lipase > 2000 U/L (73-393) H Height (Feet): 5 Height (Inches): 8.00 Weight (Pounds): 173 General Appearance: WD/WN, no apparent distress, alert Cardiovascular: normal rate Respiratory/Chest: normal breath sounds, no respiratory distress Abdominal Exam: normal bowel sounds, non tender, soft Extremities: normal range of motion, non-tender Juliette Diop [employer] Sep 04, 2018 10:48
--- NOTE | 2018-09-04 11:03 | General Progress Note ---
Assessment/Plan Problem List: (1) Alcohol dependence ICD Codes: F10.20 - Alcohol dependence, uncomplicated SNOMED: 05265477 Qualifiers: Qualified Codes: F10.288 - Alcohol dependence with other alcohol-induced disorder Status: stable, progressing Assessment/Plan valium prozac Subjective Date patient seen: Sep 04, 2018 Neurologic/Psychiatric: Reports: anxiety, depressed Allergies: Coded Allergies: No Known Allergies (Unverified , 04/26/18) Objective Last 24 Hour Vital Signs Date Time Temp Pulse Resp B/P (MAP) Pulse Ox O2 Delivery O2 Flow Rate FiO2 09/04/18 09:00 Room Air 09/04/18 08:00 106 09/04/18 07:51 98.4 88 18 122/81 (95) 100 09/04/18 04:00 97.5 90 18 122/79 (93) 97 09/04/18 04:00 85 09/04/18 00:00 84 09/04/18 00:00 97.7 86 18 132/71 (91) 97 09/03/18 21:00 Room Air 09/03/18 20:00 100 09/03/18 20:00 98.4 93 19 124/84 (97) 97 09/03/18 16:00 91 09/03/18 16:00 99.2 98 20 118/80 (93) 99 09/03/18 12:00 99.1 94 20 123/83 (96) 98 09/03/18 12:00 101 Intake and Output 09/03/18 09/04/18 19:00 07:00 Intake Total 985 ml 1744.6 ml Output Total 700 ml Balance 285 ml 1744.6 ml Intake Oral 860 ml 240 ml IV Total 125 ml 1504.6 ml Output Urine Total 700 ml # Voids 2 Laboratory Tests 09/04/18 05:32: White Blood Count 7.4, Red Blood Count 3.34L, Hemoglobin 10.7L, Hematocrit 29.7L , Mean Corpuscular Volume 89, Mean Corpuscular Hemoglobin 31.9H, Mean Corpuscular Hemoglobin Concent 35.8, Red Cell Distribution Width 13.2, Platelet Count 106L, Mean Platelet Volume 7.9, Neutrophils (%) (Auto) 73.3, Lymphocytes ( %) (Auto) 14.7L, Monocytes (%) (Auto) 9.1, Eosinophils (%) (Auto) 1.8, Basophils (%) (Auto) 1.1, Sodium Level 135L, Potassium Level 2.5*L, Chloride Level 99, Carbon Dioxide Level 27, Anion Gap 9, Blood Urea Nitrogen 3L, Creatinine 0.9, Estimat Glomerular Filtration Rate > 60, Glucose Level 136H, Hemoglobin A1c 5.2, Uric Acid 1.5L, Calcium Level 8.3L, Phosphorus Level 2.0L, Magnesium Level 1.7L, Total Bilirubin 5.5H, Direct Bilirubin 4.6H, Aspartate Amino Transf (AST/SGOT) 155H, Alanine Aminotransferase (ALT/SGPT) 61, Alkaline Phosphatase 185H, C-Reactive Protein, Quantitative 5.1H, Total Protein 6.6, Albumin 2.7L, Globulin 3.9, Albumin/Globulin Ratio 0.7L, Amylase Level 510*H, Lipase > 2000H Height (Feet): 5 Height (Inches): 8.00 Weight (Pounds): 173 General Appearance: no apparent distress, alert Neurologic: oriented x 3, responsive, depressed affect Reno Lozano MD Sep 04, 2018 11:03
[2018-09-04 11:39] VITALS: BP 123/80
[2018-09-04 15:29] VITALS: BP 111/69
--- NOTE | 2018-09-04 16:29 | Cardiology Report ---
APPROVED REPORT EXAM: Two-dimensional and M-mode echocardiogram with Doppler and color Doppler. INDICATION Tachycardia M-Mode DIMENSIONS IVSd1.0 (0.7-1.1cm)Left Atrium (MM)3.6 (1.6-4.0cm) LVDd3.7 (3.5-5.6cm)Aortic Root3.1 (2.0-3.7cm) PWd1.0 (0.7-1.1cm)Aortic Cusp Exc.2.0 (1.5-2.0cm) LVDs2.7 (2.5-4.0cm) PWs1.3 cm Technically difficult study due to poor acoustical windows. Normal left ventricular chamber size, systolic function and wall motion to extent visualized. Left ventricular ejection fraction estimated to be 65 %. No evidence of left ventricular hypertrophy. No evidence of pericardial effusion. All other cardiac chamber sizes are within normal limits. Mild focal aortic valve sclerosis with adequate cusp excursion. Mildly thickened mitral valve leaflets with normal excursion. Mild mitral annulus and aortic root calcification. Normal pulmonic valve structure. Normal tricuspid valve structure. IVC at normal size with physiologic collapse. A color flow and spectral Doppler study was performed and revealed: Trace aortic insufficiency. Trace mitral regurgitation. Mitral inflow velocities suggest normal left ventricular diastolic function. Trace tricuspid regurgitation. Tricuspid systolic velocities suggests peak right ventricular systolic pressure of 12 mmHg. Trace pulmonic regurgitation present.
--- NOTE | 2018-09-04 16:38 | General Progress Note ---
Assessment/Plan Status: stable Assessment/Plan # Thrombocytopenia. Potential causes multifactorial, evaluate liver and viral etiologies to begin. Also could be realted tp underlying medications pt has received. --> Peripheral smear ordered to evaluate for blasts/schistocytes and is negative --> Hep panel and HIV are both negative --> US abd shows enlarged fatty liver, --> CT abd shows fatty liver. --> Abx and other meds have been reviewed. --> does have pancreatitis, eval for potential liver disease # Leukocytosis. Likely related to underlying infection versus reactive process. Now improved, has received course of antibiotics. --> WBC has improved/resolved --> Blood and urine cultures reviewed, micro pending --> Cont to monitor for improvement --> Imaging has been reviewed, shows no acute process --> Has been started on abx, empiric treatment # Pancreatitis with abdominal pain. GI is following, appreciate recs. --> Pt is NPO and on IVF --> GGT --> Zofran prn --> MRCP reviewed >> possible 1.2 cm gallbladder polyp. No evidence of biliary ductal dilatation or choledocholithiasis. Enlarged fatty liver. # Transaminitis -- as per gi eval GREATLY APPRECIATE CONSULTATION. Subjective Date patient seen: Sep 04, 2018 Allergies: Coded Allergies: No Known Allergies (Unverified , 04/26/18) All Systems: reviewed and negative except above Subjective Pt awake and alert, verbally responsive. No acute events. VS stable. Objective Last 24 Hour Vital Signs Date Time Temp Pulse Resp B/P (MAP) Pulse Ox O2 Delivery O2 Flow Rate FiO2 09/04/18 15:29 98.6 93 18 111/69 (83) 96 09/04/18 12:00 89 09/04/18 11:39 98.2 87 18 123/80 (94) 100 09/04/18 09:00 Room Air 09/04/18 08:00 106 09/04/18 07:51 98.4 88 18 122/81 (95) 100 09/04/18 04:00 97.5 90 18 122/79 (93) 97 09/04/18 04:00 85 09/04/18 00:00 84 09/04/18 00:00 97.7 86 18 132/71 (91) 97 09/03/18 21:00 Room Air 09/03/18 20:00 100 09/03/18 20:00 98.4 93 19 124/84 (97) 97 Intake and Output 09/03/18 09/04/18 19:00 07:00 Intake Total 985 ml 1744.6 ml Output Total 700 ml Balance 285 ml 1744.6 ml Intake Oral 860 ml 240 ml IV Total 125 ml 1504.6 ml Output Urine Total 700 ml # Voids 2 Laboratory Tests 09/04/18 05:32: White Blood Count 7.4, Red Blood Count 3.34L, Hemoglobin 10.7L, Hematocrit 29.7L , Mean Corpuscular Volume 89, Mean Corpuscular Hemoglobin 31.9H, Mean Corpuscular Hemoglobin Concent 35.8, Red Cell Distribution Width 13.2, Platelet Count 106L, Mean Platelet Volume 7.9, Neutrophils (%) (Auto) 73.3, Lymphocytes ( %) (Auto) 14.7L, Monocytes (%) (Auto) 9.1, Eosinophils (%) (Auto) 1.8, Basophils (%) (Auto) 1.1, Sodium Level 135L, Potassium Level 2.5*L, Chloride Level 99, Carbon Dioxide Level 27, Anion Gap 9, Blood Urea Nitrogen 3L, Creatinine 0.9, Estimat Glomerular Filtration Rate > 60, Glucose Level 136H, Hemoglobin A1c 5.2, Uric Acid 1.5L, Calcium Level 8.3L, Phosphorus Level 2.0L, Magnesium Level 1.7L, Total Bilirubin 5.5H, Direct Bilirubin 4.6H, Aspartate Amino Transf (AST/SGOT) 155H, Alanine Aminotransferase (ALT/SGPT) 61, Alkaline Phosphatase 185H, C-Reactive Protein, Quantitative 5.1H, Total Protein 6.6, Albumin 2.7L, Globulin 3.9, Albumin/Globulin Ratio 0.7L, Amylase Level 510*H, Lipase > 2000H Height (Feet): 5 Height (Inches): 8.00 Weight (Pounds): 173 General Appearance: no apparent distress Objective PHYSICAL EXAMINATION: Vitals: Have been reviewed GENERAL: No acute distress HEENT: Head is normocephalic and atraumatic. Eyes, pupils are equal, round, and reactive to light. Mouth is clear. NECK: There is no palpable thyromegaly or adenopathy. CHEST: Clear to auscultation and percussion. HEART: Tachycardic, but there is no gallop or murmur. ABDOMEN: Soft and flat mild tenderness mainly on the left side of the abdomen, but there is no guarding or rebound tenderness. Bowel sounds are present. GENITAL: Deferred. EXTREMITIES: Within normal limits. Pawel Ferrera MD Sep 04, 2018 16:38
--- NOTE | 2018-09-04 16:53 | Cardiology Progress Note ---
Assessment/Plan Assessment/Plan 1. Sinus tachycardia, controlled, continue hydration and pain control. 2. Alcoholic hepatitis with associated thrombocytopenia. 3. Acute kidney injury, resolved, continue hydration. 4. Hypomagnesemia, keep Mg level >2.5.. 5. Hypokalemia, replace K and keep >4.0. Subjective Subjective Sinus rhythm at rate of 90. Objective Last 24 Hour Vital Signs Date Time Temp Pulse Resp B/P (MAP) Pulse Ox O2 Delivery O2 Flow Rate FiO2 09/04/18 16:00 90 09/04/18 15:29 98.6 93 18 111/69 (83) 96 09/04/18 12:00 89 09/04/18 11:39 98.2 87 18 123/80 (94) 100 09/04/18 09:00 Room Air 09/04/18 08:00 106 09/04/18 07:51 98.4 88 18 122/81 (95) 100 09/04/18 04:00 97.5 90 18 122/79 (93) 97 09/04/18 04:00 85 09/04/18 00:00 84 09/04/18 00:00 97.7 86 18 132/71 (91) 97 09/03/18 21:00 Room Air 09/03/18 20:00 100 09/03/18 20:00 98.4 93 19 124/84 (97) 97 Intake and Output 09/03/18 09/04/18 19:00 07:00 Intake Total 985 ml 1744.6 ml Output Total 700 ml Balance 285 ml 1744.6 ml Intake Oral 860 ml 240 ml IV Total 125 ml 1504.6 ml Output Urine Total 700 ml # Voids 2 Laboratory Tests Test 09/04/18 05:32 White Blood Count 7.4 K/UL (4.8-10.8) Red Blood Count 3.34 M/UL (4.70-6.10) L Hemoglobin 10.7 G/DL (14.2-18.0) L Hematocrit 29.7 % (42.0-52.0) L Mean Corpuscular Volume 89 FL (80-99) Mean Corpuscular Hemoglobin 31.9 PG (27.0-31.0) H Mean Corpuscular Hemoglobin Concent 35.8 G/DL (32.0-36.0) Red Cell Distribution Width 13.2 % (11.6-14.8) Platelet Count 106 K/UL (150-450) L Mean Platelet Volume 7.9 FL (6.5-10.1) Neutrophils (%) (Auto) 73.3 % (45.0-75.0) Lymphocytes (%) (Auto) 14.7 % (20.0-45.0) L Monocytes (%) (Auto) 9.1 % (1.0-10.0) Eosinophils (%) (Auto) 1.8 % (0.0-3.0) Basophils (%) (Auto) 1.1 % (0.0-2.0) Sodium Level 135 MMOL/L (136-145) L Potassium Level 2.5 MMOL/L (3.5-5.1) *L Chloride Level 99 MMOL/L (98-107) Carbon Dioxide Level 27 MMOL/L (21-32) Anion Gap 9 mmol/L (5-15) Blood Urea Nitrogen 3 mg/dL (7-18) L Creatinine 0.9 MG/DL (0.55-1.30) Estimat Glomerular Filtration Rate > 60 mL/min (>60) Glucose Level 136 MG/DL (74-106) H Hemoglobin A1c 5.2 % (4.3-6.0) Uric Acid 1.5 MG/DL (2.6-7.2) L Calcium Level 8.3 MG/DL (8.5-10.1) L Phosphorus Level 2.0 MG/DL (2.5-4.9) L Magnesium Level 1.7 MG/DL (1.8-2.4) L Total Bilirubin 5.5 MG/DL (0.2-1.0) H Direct Bilirubin 4.6 MG/DL (0.0-0.3) H Aspartate Amino Transf (AST/SGOT) 155 U/L (15-37) H Alanine Aminotransferase (ALT/SGPT) 61 U/L (12-78) Alkaline Phosphatase 185 U/L (46-116) H C-Reactive Protein, Quantitative 5.1 mg/dL (0.00-0.90) H Total Protein 6.6 G/DL (6.4-8.2) Albumin 2.7 G/DL (3.4-5.0) L Globulin 3.9 g/dL Albumin/Globulin Ratio 0.7 (1.0-2.7) L Amylase Level 510 U/L (25-115) *H Lipase > 2000 U/L (73-393) H Objective HEENT: Atraumatic and normocephalic. Anicteric. Pupils are equal, round, and reactive to light and accommodation. Extraocular muscles intact. NECK: JVP less than 5 cm. No carotid bruit. Carotid upstrokes 2+ bilaterally. CARDIOVASCULAR: Normal S1 and S2. Regular rate and rhythm. No murmurs, gallops, or rubs. PMI is at fourth intercostal space in the midclavicular line. LUNGS: Clear to auscultation bilaterally. ABDOMEN: Slightly firm. Mild epigastric tenderness. Diminished bowel sounds. EXTREMITIES: No evidence of edema, clubbing, or cyanosis. Bassem Mora MD Sep 04, 2018 16:53
--- NOTE | 2018-09-04 16:59 | General Surgery Progress Note ---
General Surgery-Progress Note Subjective Symptoms: improved, BM Objective Last 24 Hour Vital Signs Date Time Temp Pulse Resp B/P (MAP) Pulse Ox O2 Delivery O2 Flow Rate FiO2 09/04/18 16:00 90 09/04/18 15:29 98.6 93 18 111/69 (83) 96 09/04/18 12:00 89 09/04/18 11:39 98.2 87 18 123/80 (94) 100 09/04/18 09:00 Room Air 09/04/18 08:00 106 09/04/18 07:51 98.4 88 18 122/81 (95) 100 09/04/18 04:00 97.5 90 18 122/79 (93) 97 09/04/18 04:00 85 09/04/18 00:00 84 09/04/18 00:00 97.7 86 18 132/71 (91) 97 09/03/18 21:00 Room Air 09/03/18 20:00 100 09/03/18 20:00 98.4 93 19 124/84 (97) 97 I&O Intake and Output 09/03/18 09/04/18 19:00 07:00 Intake Total 985 ml 1744.6 ml Output Total 700 ml Balance 285 ml 1744.6 ml Intake Oral 860 ml 240 ml IV Total 125 ml 1504.6 ml Output Urine Total 700 ml # Voids 2 Respiratory: clear Abdomen: soft, flat, non-tender, present bowel sounds Extremities: no tenderness Laboratory Tests Test 09/04/18 05:32 White Blood Count 7.4 K/UL (4.8-10.8) Red Blood Count 3.34 M/UL (4.70-6.10) L Hemoglobin 10.7 G/DL (14.2-18.0) L Hematocrit 29.7 % (42.0-52.0) L Mean Corpuscular Volume 89 FL (80-99) Mean Corpuscular Hemoglobin 31.9 PG (27.0-31.0) H Mean Corpuscular Hemoglobin Concent 35.8 G/DL (32.0-36.0) Red Cell Distribution Width 13.2 % (11.6-14.8) Platelet Count 106 K/UL (150-450) L Mean Platelet Volume 7.9 FL (6.5-10.1) Neutrophils (%) (Auto) 73.3 % (45.0-75.0) Lymphocytes (%) (Auto) 14.7 % (20.0-45.0) L Monocytes (%) (Auto) 9.1 % (1.0-10.0) Eosinophils (%) (Auto) 1.8 % (0.0-3.0) Basophils (%) (Auto) 1.1 % (0.0-2.0) Sodium Level 135 MMOL/L (136-145) L Potassium Level 2.5 MMOL/L (3.5-5.1) *L Chloride Level 99 MMOL/L (98-107) Carbon Dioxide Level 27 MMOL/L (21-32) Anion Gap 9 mmol/L (5-15) Blood Urea Nitrogen 3 mg/dL (7-18) L Creatinine 0.9 MG/DL (0.55-1.30) Estimat Glomerular Filtration Rate > 60 mL/min (>60) Glucose Level 136 MG/DL (74-106) H Hemoglobin A1c 5.2 % (4.3-6.0) Uric Acid 1.5 MG/DL (2.6-7.2) L Calcium Level 8.3 MG/DL (8.5-10.1) L Phosphorus Level 2.0 MG/DL (2.5-4.9) L Magnesium Level 1.7 MG/DL (1.8-2.4) L Total Bilirubin 5.5 MG/DL (0.2-1.0) H Direct Bilirubin 4.6 MG/DL (0.0-0.3) H Aspartate Amino Transf (AST/SGOT) 155 U/L (15-37) H Alanine Aminotransferase (ALT/SGPT) 61 U/L (12-78) Alkaline Phosphatase 185 U/L (46-116) H C-Reactive Protein, Quantitative 5.1 mg/dL (0.00-0.90) H Total Protein 6.6 G/DL (6.4-8.2) Albumin 2.7 G/DL (3.4-5.0) L Globulin 3.9 g/dL Albumin/Globulin Ratio 0.7 (1.0-2.7) L Amylase Level 510 U/L (25-115) *H Lipase > 2000 U/L (73-393) H Assessment Additional Comments Pancreatitis Plan Additional Comments continue as before Marla Vaughn MD Sep 04, 2018 16:59
--- NOTE | 2018-09-04 17:16 | Infectious Diseases Prog Note ---
Assessment/Plan Assessment/Plan A: 1. Acute pancreatitis, maybe secondary to alcohol abuse. 2. Hyponatremia. 3. Acute renal failure that is improving. 4. Fatty liver. 5. Hiatal hernia. 6. Hypokalemia P Discontinue Zosyn Observe off antibiotic Subjective ROS Limited/Unobtainable: No Constitutional: Reports: no symptoms Respiratory: Reports: no symptoms Cardiovascular: Reports: no symptoms Gastrointestinal/Abdominal: Reports: no symptoms Genitourinary: Reports: no symptoms Allergies: Coded Allergies: No Known Allergies (Unverified , 04/26/18) Objective Vital Signs Last 24 Hour Vital Signs Date Time Temp Pulse Resp B/P (MAP) Pulse Ox O2 Delivery O2 Flow Rate FiO2 09/04/18 16:00 90 09/04/18 15:29 98.6 93 18 111/69 (83) 96 09/04/18 12:00 89 09/04/18 11:39 98.2 87 18 123/80 (94) 100 09/04/18 09:00 Room Air 09/04/18 08:00 106 09/04/18 07:51 98.4 88 18 122/81 (95) 100 09/04/18 04:00 97.5 90 18 122/79 (93) 97 09/04/18 04:00 85 09/04/18 00:00 84 09/04/18 00:00 97.7 86 18 132/71 (91) 97 09/03/18 21:00 Room Air 09/03/18 20:00 100 09/03/18 20:00 98.4 93 19 124/84 (97) 97 Height (Feet): 5 Height (Inches): 8.00 Weight (Pounds): 173 General Appearance: no acute distress HEENT: mucous membranes moist Respiratory/Chest: lungs clear Cardiovascular: normal rate Abdomen: soft, non tender Extremities: no edema Neurologic/Psychiatric: alert, oriented x 3, responsive Laboratory Tests Test 09/04/18 05:32 White Blood Count 7.4 K/UL (4.8-10.8) Red Blood Count 3.34 M/UL (4.70-6.10) L Hemoglobin 10.7 G/DL (14.2-18.0) L Hematocrit 29.7 % (42.0-52.0) L Mean Corpuscular Volume 89 FL (80-99) Mean Corpuscular Hemoglobin 31.9 PG (27.0-31.0) H Mean Corpuscular Hemoglobin Concent 35.8 G/DL (32.0-36.0) Red Cell Distribution Width 13.2 % (11.6-14.8) Platelet Count 106 K/UL (150-450) L Mean Platelet Volume 7.9 FL (6.5-10.1) Neutrophils (%) (Auto) 73.3 % (45.0-75.0) Lymphocytes (%) (Auto) 14.7 % (20.0-45.0) L Monocytes (%) (Auto) 9.1 % (1.0-10.0) Eosinophils (%) (Auto) 1.8 % (0.0-3.0) Basophils (%) (Auto) 1.1 % (0.0-2.0) Sodium Level 135 MMOL/L (136-145) L Potassium Level 2.5 MMOL/L (3.5-5.1) *L Chloride Level 99 MMOL/L (98-107) Carbon Dioxide Level 27 MMOL/L (21-32) Anion Gap 9 mmol/L (5-15) Blood Urea Nitrogen 3 mg/dL (7-18) L Creatinine 0.9 MG/DL (0.55-1.30) Estimat Glomerular Filtration Rate > 60 mL/min (>60) Glucose Level 136 MG/DL (74-106) H Hemoglobin A1c 5.2 % (4.3-6.0) Uric Acid 1.5 MG/DL (2.6-7.2) L Calcium Level 8.3 MG/DL (8.5-10.1) L Phosphorus Level 2.0 MG/DL (2.5-4.9) L Magnesium Level 1.7 MG/DL (1.8-2.4) L Total Bilirubin 5.5 MG/DL (0.2-1.0) H Direct Bilirubin 4.6 MG/DL (0.0-0.3) H Aspartate Amino Transf (AST/SGOT) 155 U/L (15-37) H Alanine Aminotransferase (ALT/SGPT) 61 U/L (12-78) Alkaline Phosphatase 185 U/L (46-116) H C-Reactive Protein, Quantitative 5.1 mg/dL (0.00-0.90) H Total Protein 6.6 G/DL (6.4-8.2) Albumin 2.7 G/DL (3.4-5.0) L Globulin 3.9 g/dL Albumin/Globulin Ratio 0.7 (1.0-2.7) L Amylase Level 510 U/L (25-115) *H Lipase > 2000 U/L (73-393) H Current Medications Medications (Trade) Dose Ordered Sig/Solis Route PRN Reason Start Time Stop Time Status Last Admin Dose Admin Acetaminophen/ Hydrocodone Bitart (Tina 5/325) 1 tab Q4H PRN ORAL Moderate Pain (Pain Scale 4-6) 09/03/18 09:45 09/10/18 09:44 Dextrose/ Electrolytes 1,000 ml @ 75 mls/hr [id number] IV 09/04/18 15:30 10/02/18 15:29 09/04/18 15:15 Diazepam (Valium) 10 mg EVERY 2 HOURS PRN ORAL For Anxiety 09/01/18 23:30 09/08/18 23:29 09/03/18 08:24 Fluoxetine HCl (PROzac) 20 mg DAILY ORAL 09/02/18 12:34 10/02/18 12:33 09/04/18 09:12 Folic Acid (Folate) 1 mg DAILY ORAL 09/02/18 09:00 10/02/18 08:59 09/04/18 09:12 Hydromorphone HCl (Dilaudid) 0.5 mg Q4H PRN IVP Severe Pain (Pain Scale 7-10) 09/02/18 09:15 09/09/18 01:14 Iopamidol (Isovue-300 100ml) 100 ml NOW PRN INJ Radiology Procedure 09/01/18 19:45 Mirtazapine (Remeron) 7.5 mg BEDTIME ORAL 09/02/18 21:00 10/02/18 20:59 09/03/18 21:13 Ondansetron HCl (Zofran) 4 mg Q6H PRN IVP Nausea & Vomiting 09/02/18 01:15 10/02/18 01:14 09/02/18 08:39 Pantoprazole (Protonix) 40 mg EVERY 12 HOURS ORAL 09/03/18 21:00 10/03/18 20:59 09/04/18 09:12 Piperacillin Sod/ Tazobactam Sod 3.375 gm/Sodium Chloride 110 ml @ 27.5 mls/hr EVERY 8 HOURS IVPB 09/02/18 14:00 09/07/18 13:59 09/04/18 13:03 Potassium Chloride 100 ml @ 100 mls/hr Q1H IVPB 09/04/18 17:00 09/04/18 20:59 09/04/18 17:11 Senna/Docusate Sodium (Summer-Colace) 1 tab TWICE A DAY ORAL 09/04/18 09:00 10/04/18 08:59 09/04/18 17:08 Thiamine HCl (Vitamin B1) 100 mg DAILY ORAL 09/02/18 09:00 10/02/18 08:59 09/04/18 09:12 Anam Corona MD Sep 04, 2018 17:16
[2018-09-04 20:00] VITALS: BP 120/80
--- NOTE | 2018-09-04 20:51 | General Progress Note ---
Assessment/Plan Problem List: (1) Dehydration ICD Codes: E86.0 - Dehydration SNOMED: 66037768 (2) Pancreatitis ICD Codes: K85.90 - Acute pancreatitis without necrosis or infection, unspecified SNOMED: 52732036 (3) Abdominal pain ICD Codes: R10.9 - Unspecified abdominal pain SNOMED: 83084530 (4) Abnormal LFTs (liver function tests) ICD Codes: R94.5 - Abnormal results of liver function studies SNOMED: 767653931 (5) Alcohol dependence ICD Codes: F10.20 - Alcohol dependence, uncomplicated SNOMED: 22310631 Qualifiers: Qualified Codes: F10.288 - Alcohol dependence with other alcohol-induced disorder Status: progressing Assessment/Plan no vomitting pancreatitis is improving abdominal pain is improving etoh dependence Subjective ROS Limited/Unobtainable: Yes Allergies: Coded Allergies: No Known Allergies (Unverified , 04/26/18) Objective Last 24 Hour Vital Signs Date Time Temp Pulse Resp B/P (MAP) Pulse Ox O2 Delivery O2 Flow Rate FiO2 09/04/18 20:00 97.5 94 20 120/80 (93) 98 09/04/18 16:00 90 09/04/18 15:29 98.6 93 18 111/69 (83) 96 09/04/18 12:00 89 09/04/18 11:39 98.2 87 18 123/80 (94) 100 09/04/18 09:00 Room Air 09/04/18 08:00 106 09/04/18 07:51 98.4 88 18 122/81 (95) 100 09/04/18 04:00 97.5 90 18 122/79 (93) 97 09/04/18 04:00 85 09/04/18 00:00 84 09/04/18 00:00 97.7 86 18 132/71 (91) 97 09/03/18 21:00 Room Air Intake and Output 09/03/18 09/04/18 19:00 07:00 Intake Total 985 ml 1744.6 ml Output Total 700 ml Balance 285 ml 1744.6 ml Intake Oral 860 ml 240 ml IV Total 125 ml 1504.6 ml Output Urine Total 700 ml # Voids 2 Laboratory Tests 09/04/18 05:32: White Blood Count 7.4, Red Blood Count 3.34L, Hemoglobin 10.7L, Hematocrit 29.7L , Mean Corpuscular Volume 89, Mean Corpuscular Hemoglobin 31.9H, Mean Corpuscular Hemoglobin Concent 35.8, Red Cell Distribution Width 13.2, Platelet Count 106L, Mean Platelet Volume 7.9, Neutrophils (%) (Auto) 73.3, Lymphocytes ( %) (Auto) 14.7L, Monocytes (%) (Auto) 9.1, Eosinophils (%) (Auto) 1.8, Basophils (%) (Auto) 1.1, Sodium Level 135L, Potassium Level 2.5*L, Chloride Level 99, Carbon Dioxide Level 27, Anion Gap 9, Blood Urea Nitrogen 3L, Creatinine 0.9, Estimat Glomerular Filtration Rate > 60, Glucose Level 136H, Hemoglobin A1c 5.2, Uric Acid 1.5L, Calcium Level 8.3L, Phosphorus Level 2.0L, Magnesium Level 1.7L, Total Bilirubin 5.5H, Direct Bilirubin 4.6H, Aspartate Amino Transf (AST/SGOT) 155H, Alanine Aminotransferase (ALT/SGPT) 61, Alkaline Phosphatase 185H, C-Reactive Protein, Quantitative 5.1H, Total Protein 6.6, Albumin 2.7L, Globulin 3.9, Albumin/Globulin Ratio 0.7L, Amylase Level 510*H, Lipase > 2000H Height (Feet): 5 Height (Inches): 8.00 Weight (Pounds): 173 Cardiovascular: normal rate Respiratory/Chest: lungs clear Abdomen: tender Bessy Mccormick MD Sep 04, 2018 20:51
[2018-09-05] VITALS: BP 126/78
[2018-09-05 04:00] VITALS: BP 130/82
[2018-09-05 05:39] LABS: BASOPHILS % (AUTO) 0.7 % (0.0-2.0); HEMOGLOBIN 11.1 G/DL (14.2-18.0); LYMPHOCYTES % (AUTO) 13.1 % (20.0-45.0); MEAN CORPUSCULAR VOLUME 90 FL (80-99); MONOCYTES % (AUTO) 13.4 % (1.0-10.0); NEUTROPHILS % (AUTO) 71.8 % (45.0-75.0); PLATELET COUNT 154 K/UL (150-450); RED BLOOD COUNT 3.55 M/UL (4.70-6.10); RED CELL DISTRIBUTION WIDTH 13.4 % (11.6-14.8); WHITE BLOOD COUNT 8.6 K/UL (4.8-10.8)
[2018-09-05 06:04] LABS: ALANINE AMINOTRANSFERASE 63 U/L (12-78); ALBUMIN 2.9 G/DL (3.4-5.0); ALBUMIN/GLOBULIN RATIO 0.7 (1.0-2.7); ALKALINE PHOSPHATASE 200 U/L (46-116); ANION GAP 10 mmol/L (5-15); ASPARTATE AMINO TRANSFERASE 120 U/L (15-37); BILIRUBIN,TOTAL 4.1 MG/DL (0.2-1.0); BLOOD UREA NITROGEN 3 mg/dL (7-18); CALCIUM 9.1 MG/DL (8.5-10.1); CARBON DIOXIDE 27 MMOL/L (21-32); CHLORIDE 97 MMOL/L (98-107); CREATININE 0.8 MG/DL (0.55-1.30); PHOSPHORUS 2.8 MG/DL (2.5-4.9); SODIUM 135 MMOL/L (136-145)
[2018-09-05 06:06] LABS: BILIRUBIN,DIRECT 3.6 MG/DL (0.0-0.3); POTASSIUM 2.6 MMOL/L (3.5-5.1)
[2018-09-05 08:00] VITALS: BP 139/92
[2018-09-05] MEDS: Docusate Sod/Senna tab ORAL SCH ×2 (08:26→17:12)
[2018-09-05] MEDS: Thiamine 100mg tab ORAL SCH (08:26)
[2018-09-05] MEDS ORDERED: D5NS w/KCl 40mEq 1000ml 1,000 ML IV SCH (10:00)
--- NOTE | 2018-09-05 10:21 | Nephrology Progress Note ---
Assessment/Plan Problem List: (1) Pancreatitis (2) Abnormal LFTs (liver function tests) (3) Abdominal pain (4) Alcohol dependence (5) Hyponatremia Assessment tolerating po Pancreatitis high Lipase Abnormal LFTs Hyponatremia Dehydration I Plan DC IV Fluids- K PO Phos and Mag supplement as needed Protonix clear liquids Monitor lytes continue rest Subjective ROS Limited/Unobtainable: No Objective Objective Last 24 Hour Vital Signs Date Time Temp Pulse Resp B/P (MAP) Pulse Ox O2 Delivery O2 Flow Rate FiO2 09/05/18 09:00 Room Air 09/05/18 08:00 97.5 106 20 139/92 (108) 99 09/05/18 08:00 106 09/05/18 04:00 98.9 104 20 130/82 (98) 99 09/05/18 04:00 120 09/05/18 00:00 86 09/05/18 00:00 98.9 94 20 126/78 (94) 98 09/04/18 21:00 Room Air 09/04/18 20:00 83 09/04/18 20:00 97.5 94 20 120/80 (93) 98 09/04/18 16:00 90 09/04/18 15:29 98.6 93 18 111/69 (83) 96 09/04/18 12:00 89 09/04/18 11:39 98.2 87 18 123/80 (94) 100 Intake and Output 09/04/18 09/05/18 19:00 07:00 Intake Total 1807.5 ml 300 ml Output Total 1900 ml Balance -92.5 ml 300 ml Intake Oral 1080 ml 300 ml IV Total 727.5 ml Output Urine Total 1900 ml # Voids 3 # Bowel Movements 1 Laboratory Tests 09/05/18 05:20: White Blood Count 8.6, Red Blood Count 3.55L, Hemoglobin 11.1L, Hematocrit 32.0L , Mean Corpuscular Volume 90, Mean Corpuscular Hemoglobin 31.2H, Mean Corpuscular Hemoglobin Concent 34.7, Red Cell Distribution Width 13.4, Platelet Count 154, Mean Platelet Volume 7.8, Neutrophils (%) (Auto) 71.8, Lymphocytes (% ) (Auto) 13.1L, Monocytes (%) (Auto) 13.4H, Eosinophils (%) (Auto) 1.0, Basophils (%) (Auto) 0.7, Sodium Level 135L, Potassium Level 2.6*L, Chloride Level 97L, Carbon Dioxide Level 27, Anion Gap 10, Blood Urea Nitrogen 3L, Creatinine 0.8, Estimat Glomerular Filtration Rate > 60, Glucose Level 132H, Uric Acid 1.4L, Calcium Level 9.1, Phosphorus Level 2.8, Magnesium Level 1.6L, Total Bilirubin 4.1H, Direct Bilirubin 3.6H, Aspartate Amino Transf (AST/SGOT) 120H, Alanine Aminotransferase (ALT/SGPT) 63, Alkaline Phosphatase 200H, C- Reactive Protein, Quantitative 5.1H, Pro-B-Type Natriuretic Peptide 39, Total Protein 7.3, Albumin 2.9L, Globulin 4.4, Albumin/Globulin Ratio 0.7L, Lipase > 2000H Height (Feet): 5 Height (Inches): 8.00 Weight (Pounds): 173 General Appearance: no apparent distress Objective no change Deion Kendrick MD Sep 05, 2018 10:21
--- NOTE | 2018-09-05 10:43 | Infectious Diseases Prog Note ---
Assessment/Plan Assessment/Plan antibiotics : none A 1. pancreatitis 2. leucocytosis improving 3. renal failure resolved 4. hyponatremia 5. hypokalemia P 1. continue off antibiotics Subjective Constitutional: Denies: fever, chills Respiratory: Denies: shortness of breath, dry cough Gastrointestinal/Abdominal: Denies: nausea, vomiting, diarrhea Musculoskeletal: Denies: pain Allergies: Coded Allergies: No Known Allergies (Unverified , 04/26/18) Objective Vital Signs Last 24 Hour Vital Signs Date Time Temp Pulse Resp B/P (MAP) Pulse Ox O2 Delivery O2 Flow Rate FiO2 09/05/18 09:00 Room Air 09/05/18 08:00 97.5 106 20 139/92 (108) 99 09/05/18 08:00 106 09/05/18 04:00 98.9 104 20 130/82 (98) 99 09/05/18 04:00 120 09/05/18 00:00 86 09/05/18 00:00 98.9 94 20 126/78 (94) 98 09/04/18 21:00 Room Air 09/04/18 20:00 83 09/04/18 20:00 97.5 94 20 120/80 (93) 98 09/04/18 16:00 90 09/04/18 15:29 98.6 93 18 111/69 (83) 96 09/04/18 12:00 89 09/04/18 11:39 98.2 87 18 123/80 (94) 100 Height (Feet): 5 Height (Inches): 8.00 Weight (Pounds): 173 Respiratory/Chest: lungs clear Cardiovascular: normal rate, regular rhythm, no gallop/murmur Abdomen: soft, non tender Extremities: no edema Laboratory Tests Test 09/05/18 05:20 White Blood Count 8.6 K/UL (4.8-10.8) Red Blood Count 3.55 M/UL (4.70-6.10) L Hemoglobin 11.1 G/DL (14.2-18.0) L Hematocrit 32.0 % (42.0-52.0) L Mean Corpuscular Volume 90 FL (80-99) Mean Corpuscular Hemoglobin 31.2 PG (27.0-31.0) H Mean Corpuscular Hemoglobin Concent 34.7 G/DL (32.0-36.0) Red Cell Distribution Width 13.4 % (11.6-14.8) Platelet Count 154 K/UL (150-450) Mean Platelet Volume 7.8 FL (6.5-10.1) Neutrophils (%) (Auto) 71.8 % (45.0-75.0) Lymphocytes (%) (Auto) 13.1 % (20.0-45.0) L Monocytes (%) (Auto) 13.4 % (1.0-10.0) H Eosinophils (%) (Auto) 1.0 % (0.0-3.0) Basophils (%) (Auto) 0.7 % (0.0-2.0) Sodium Level 135 MMOL/L (136-145) L Potassium Level 2.6 MMOL/L (3.5-5.1) *L Chloride Level 97 MMOL/L (98-107) L Carbon Dioxide Level 27 MMOL/L (21-32) Anion Gap 10 mmol/L (5-15) Blood Urea Nitrogen 3 mg/dL (7-18) L Creatinine 0.8 MG/DL (0.55-1.30) Estimat Glomerular Filtration Rate > 60 mL/min (>60) Glucose Level 132 MG/DL (74-106) H Uric Acid 1.4 MG/DL (2.6-7.2) L Calcium Level 9.1 MG/DL (8.5-10.1) Phosphorus Level 2.8 MG/DL (2.5-4.9) Magnesium Level 1.6 MG/DL (1.8-2.4) L Total Bilirubin 4.1 MG/DL (0.2-1.0) H Direct Bilirubin 3.6 MG/DL (0.0-0.3) H Aspartate Amino Transf (AST/SGOT) 120 U/L (15-37) H Alanine Aminotransferase (ALT/SGPT) 63 U/L (12-78) Alkaline Phosphatase 200 U/L (46-116) H C-Reactive Protein, Quantitative 5.1 mg/dL (0.00-0.90) H Pro-B-Type Natriuretic Peptide 39 pg/mL (0-125) Total Protein 7.3 G/DL (6.4-8.2) Albumin 2.9 G/DL (3.4-5.0) L Globulin 4.4 g/dL Albumin/Globulin Ratio 0.7 (1.0-2.7) L Lipase > 2000 U/L (73-393) H Current Medications Medications (Trade) Dose Ordered Sig/Solis Route PRN Reason Start Time Stop Time Status Last Admin Dose Admin Acetaminophen/ Hydrocodone Bitart ([place] 5/325) 1 tab Q4H PRN ORAL Moderate Pain (Pain Scale 4-6) 09/03/18 09:45 09/10/18 09:44 Dextrose/ Electrolytes 1,000 ml @ 50 mls/hr Q20H IV 09/05/18 10:00 10/05/18 09:59 Diazepam (Valium) 10 mg EVERY 2 HOURS PRN ORAL For Anxiety 09/01/18 23:30 09/08/18 23:29 09/05/18 01:23 Fluoxetine HCl (PROzac) 20 mg DAILY ORAL 09/02/18 12:34 10/02/18 12:33 09/05/18 08:26 Folic Acid (Folate) 1 mg DAILY ORAL 09/02/18 09:00 10/02/18 08:59 09/05/18 08:26 Hydromorphone HCl (Dilaudid) 0.5 mg Q4H PRN IVP Severe Pain (Pain Scale 7-10) 09/02/18 09:15 09/09/18 01:14 Iopamidol (Isovue-300 100ml) 100 ml NOW PRN INJ Radiology Procedure 09/01/18 19:45 Magnesium Sulfate 100 ml @ 100 mls/hr Q1H IVPB 09/05/18 09:30 09/05/18 13:29 09/05/18 10:33 Mirtazapine (Remeron) 7.5 mg BEDTIME ORAL 09/02/18 21:00 10/02/18 20:59 09/04/18 21:27 Ondansetron HCl (Zofran) 4 mg Q6H PRN IVP Nausea & Vomiting 09/02/18 01:15 10/02/18 01:14 09/02/18 08:39 Pantoprazole (Protonix) 40 mg EVERY 12 HOURS ORAL 09/03/18 21:00 10/03/18 20:59 09/05/18 08:26 Potassium Chloride (K-Dur) 40 meq TID ORAL 09/05/18 09:00 10/05/18 08:59 09/05/18 09:21 Senna/Docusate Sodium (Summer-Colace) 1 tab TWICE A DAY ORAL 09/04/18 09:00 10/04/18 08:59 09/04/18 17:08 Thiamine HCl (Vitamin B1) 100 mg DAILY ORAL 09/02/18 09:00 10/02/18 08:59 09/05/18 08:26 Navid Sanders MD Sep 05, 2018 10:43
--- NOTE | 2018-09-05 11:56 | General Surgery Progress Note ---
General Surgery-Progress Note Subjective Symptoms: improved, BM Objective Last 24 Hour Vital Signs Date Time Temp Pulse Resp B/P (MAP) Pulse Ox O2 Delivery O2 Flow Rate FiO2 09/05/18 09:00 Room Air 09/05/18 08:00 97.5 106 20 139/92 (108) 99 09/05/18 08:00 106 09/05/18 04:00 98.9 104 20 130/82 (98) 99 09/05/18 04:00 120 09/05/18 00:00 86 09/05/18 00:00 98.9 94 20 126/78 (94) 98 09/04/18 21:00 Room Air 09/04/18 20:00 83 09/04/18 20:00 97.5 94 20 120/80 (93) 98 09/04/18 16:00 90 09/04/18 15:29 98.6 93 18 111/69 (83) 96 09/04/18 12:00 89 I&O Intake and Output 09/04/18 09/05/18 19:00 07:00 Intake Total 1807.5 ml 300 ml Output Total 1900 ml Balance -92.5 ml 300 ml Intake Oral 1080 ml 300 ml IV Total 727.5 ml Output Urine Total 1900 ml # Voids 3 # Bowel Movements 1 Respiratory: clear Abdomen: soft, flat, non-tender, present bowel sounds Extremities: no tenderness Laboratory Tests Test 09/05/18 05:20 White Blood Count 8.6 K/UL (4.8-10.8) Red Blood Count 3.55 M/UL (4.70-6.10) L Hemoglobin 11.1 G/DL (14.2-18.0) L Hematocrit 32.0 % (42.0-52.0) L Mean Corpuscular Volume 90 FL (80-99) Mean Corpuscular Hemoglobin 31.2 PG (27.0-31.0) H Mean Corpuscular Hemoglobin Concent 34.7 G/DL (32.0-36.0) Red Cell Distribution Width 13.4 % (11.6-14.8) Platelet Count 154 K/UL (150-450) Mean Platelet Volume 7.8 FL (6.5-10.1) Neutrophils (%) (Auto) 71.8 % (45.0-75.0) Lymphocytes (%) (Auto) 13.1 % (20.0-45.0) L Monocytes (%) (Auto) 13.4 % (1.0-10.0) H Eosinophils (%) (Auto) 1.0 % (0.0-3.0) Basophils (%) (Auto) 0.7 % (0.0-2.0) Sodium Level 135 MMOL/L (136-145) L Potassium Level 2.6 MMOL/L (3.5-5.1) *L Chloride Level 97 MMOL/L (98-107) L Carbon Dioxide Level 27 MMOL/L (21-32) Anion Gap 10 mmol/L (5-15) Blood Urea Nitrogen 3 mg/dL (7-18) L Creatinine 0.8 MG/DL (0.55-1.30) Estimat Glomerular Filtration Rate > 60 mL/min (>60) Glucose Level 132 MG/DL (74-106) H Uric Acid 1.4 MG/DL (2.6-7.2) L Calcium Level 9.1 MG/DL (8.5-10.1) Phosphorus Level 2.8 MG/DL (2.5-4.9) Magnesium Level 1.6 MG/DL (1.8-2.4) L Total Bilirubin 4.1 MG/DL (0.2-1.0) H Direct Bilirubin 3.6 MG/DL (0.0-0.3) H Aspartate Amino Transf (AST/SGOT) 120 U/L (15-37) H Alanine Aminotransferase (ALT/SGPT) 63 U/L (12-78) Alkaline Phosphatase 200 U/L (46-116) H C-Reactive Protein, Quantitative 5.1 mg/dL (0.00-0.90) H Pro-B-Type Natriuretic Peptide 39 pg/mL (0-125) Total Protein 7.3 G/DL (6.4-8.2) Albumin 2.9 G/DL (3.4-5.0) L Globulin 4.4 g/dL Albumin/Globulin Ratio 0.7 (1.0-2.7) L Lipase > 2000 U/L (73-393) H Assessment Additional Comments Pancreatitis Plan Additional Comments continue as before Marla Vaughn MD Sep 05, 2018 11:56
[2018-09-05 12:00] VITALS: BP 121/84
--- NOTE | 2018-09-05 13:16 | General Progress Note ---
Assessment/Plan Problem List: (1) Dehydration ICD Codes: E86.0 - Dehydration SNOMED: 81970248 (2) Pancreatitis ICD Codes: K85.90 - Acute pancreatitis without necrosis or infection, unspecified SNOMED: 66693522 (3) Abdominal pain ICD Codes: R10.9 - Unspecified abdominal pain SNOMED: 73473512 (4) Abnormal LFTs (liver function tests) ICD Codes: R94.5 - Abnormal results of liver function studies SNOMED: 738411637 (5) Alcohol dependence ICD Codes: F10.20 - Alcohol dependence, uncomplicated SNOMED: 75471878 Qualifiers: Qualified Codes: F10.288 - Alcohol dependence with other alcohol-induced disorder Status: progressing Assessment/Plan afebrile needs fluids diet per gi no acute events pancreatitis is improving abdominal pain is improving etoh dependence Subjective Gastrointestinal/Abdominal: Reports: abdominal pain Allergies: Coded Allergies: No Known Allergies (Unverified , 04/26/18) Objective Last 24 Hour Vital Signs Date Time Temp Pulse Resp B/P (MAP) Pulse Ox O2 Delivery O2 Flow Rate FiO2 09/05/18 09:00 Room Air 09/05/18 08:00 97.5 106 20 139/92 (108) 99 09/05/18 08:00 106 09/05/18 04:00 98.9 104 20 130/82 (98) 99 09/05/18 04:00 120 09/05/18 00:00 86 09/05/18 00:00 98.9 94 20 126/78 (94) 98 09/04/18 21:00 Room Air 09/04/18 20:00 83 09/04/18 20:00 97.5 94 20 120/80 (93) 98 09/04/18 16:00 90 09/04/18 15:29 98.6 93 18 111/69 (83) 96 Intake and Output 09/04/18 09/05/18 19:00 07:00 Intake Total 1807.5 ml 300 ml Output Total 1900 ml Balance -92.5 ml 300 ml Intake Oral 1080 ml 300 ml IV Total 727.5 ml Output Urine Total 1900 ml # Voids 3 # Bowel Movements 1 Laboratory Tests 09/05/18 05:20: White Blood Count 8.6, Red Blood Count 3.55L, Hemoglobin 11.1L, Hematocrit 32.0L , Mean Corpuscular Volume 90, Mean Corpuscular Hemoglobin 31.2H, Mean Corpuscular Hemoglobin Concent 34.7, Red Cell Distribution Width 13.4, Platelet Count 154, Mean Platelet Volume 7.8, Neutrophils (%) (Auto) 71.8, Lymphocytes (% ) (Auto) 13.1L, Monocytes (%) (Auto) 13.4H, Eosinophils (%) (Auto) 1.0, Basophils (%) (Auto) 0.7, Sodium Level 135L, Potassium Level 2.6*L, Chloride Level 97L, Carbon Dioxide Level 27, Anion Gap 10, Blood Urea Nitrogen 3L, Creatinine 0.8, Estimat Glomerular Filtration Rate > 60, Glucose Level 132H, Uric Acid 1.4L, Calcium Level 9.1, Phosphorus Level 2.8, Magnesium Level 1.6L, Total Bilirubin 4.1H, Direct Bilirubin 3.6H, Aspartate Amino Transf (AST/SGOT) 120H, Alanine Aminotransferase (ALT/SGPT) 63, Alkaline Phosphatase 200H, C- Reactive Protein, Quantitative 5.1H, Pro-B-Type Natriuretic Peptide 39, Total Protein 7.3, Albumin 2.9L, Globulin 4.4, Albumin/Globulin Ratio 0.7L, Lipase > 2000H Height (Feet): 5 Height (Inches): 8.00 Weight (Pounds): 173 Neck: normal alignment Cardiovascular: normal rate Respiratory/Chest: lungs clear Abdomen: tender Bessy Mccormick MD Sep 05, 2018 13:16
--- NOTE | 2018-09-05 13:41 | General Progress Note ---
Assessment/Plan Status: stable Assessment/Plan # Thrombocytopenia - likely related to live etiology and/or reactive process --> Plt count has improved --> Peripheral smear ordered to evaluate for blasts/schistocytes and is negative --> Hep panel and HIV are both negative --> US abd shows enlarged fatty liver, --> CT abd shows fatty liver. --> Abx and other meds have been reviewed. --> does have pancreatitis, eval for potential liver disease # Leukocytosis. Likely related to underlying infection versus reactive process. Now improved, has received course of antibiotics. --> WBC has improved/resolved --> Blood and urine cultures reviewed, micro pending --> Cont to monitor for improvement --> Imaging has been reviewed, shows no acute process --> Has been started on abx, empiric treatment # Pancreatitis with abdominal pain. GI is following, appreciate recs. --> Pt is NPO and on IVF --> GGT --> Zofran prn --> MRCP reviewed >> possible 1.2 cm gallbladder polyp. No evidence of biliary ductal dilatation or choledocholithiasis. Enlarged fatty liver. # Transaminitis -- as per gi eval GREATLY APPRECIATE CONSULTATION. Subjective Date patient seen: Sep 05, 2018 Allergies: Coded Allergies: No Known Allergies (Unverified , 04/26/18) All Systems: reviewed and negative except above Subjective Pt resting in bed, in stable condition. Plt count has improved. Objective Last 24 Hour Vital Signs Date Time Temp Pulse Resp B/P (MAP) Pulse Ox O2 Delivery O2 Flow Rate FiO2 09/05/18 12:00 98.6 86 20 121/84 (96) 98 09/05/18 12:00 104 09/05/18 09:00 Room Air 09/05/18 08:00 97.5 106 20 139/92 (108) 99 09/05/18 08:00 106 09/05/18 04:00 98.9 104 20 130/82 (98) 99 09/05/18 04:00 120 09/05/18 00:00 86 09/05/18 00:00 98.9 94 20 126/78 (94) 98 09/04/18 21:00 Room Air 09/04/18 20:00 83 09/04/18 20:00 97.5 94 20 120/80 (93) 98 09/04/18 16:00 90 09/04/18 15:29 98.6 93 18 111/69 (83) 96 Intake and Output 09/04/18 09/05/18 19:00 07:00 Intake Total 1807.5 ml 300 ml Output Total 1900 ml Balance -92.5 ml 300 ml Intake Oral 1080 ml 300 ml IV Total 727.5 ml Output Urine Total 1900 ml # Voids 3 # Bowel Movements 1 Laboratory Tests 09/05/18 05:20: White Blood Count 8.6, Red Blood Count 3.55L, Hemoglobin 11.1L, Hematocrit 32.0L , Mean Corpuscular Volume 90, Mean Corpuscular Hemoglobin 31.2H, Mean Corpuscular Hemoglobin Concent 34.7, Red Cell Distribution Width 13.4, Platelet Count 154, Mean Platelet Volume 7.8, Neutrophils (%) (Auto) 71.8, Lymphocytes (% ) (Auto) 13.1L, Monocytes (%) (Auto) 13.4H, Eosinophils (%) (Auto) 1.0, Basophils (%) (Auto) 0.7, Sodium Level 135L, Potassium Level 2.6*L, Chloride Level 97L, Carbon Dioxide Level 27, Anion Gap 10, Blood Urea Nitrogen 3L, Creatinine 0.8, Estimat Glomerular Filtration Rate > 60, Glucose Level 132H, Uric Acid 1.4L, Calcium Level 9.1, Phosphorus Level 2.8, Magnesium Level 1.6L, Total Bilirubin 4.1H, Direct Bilirubin 3.6H, Aspartate Amino Transf (AST/SGOT) 120H, Alanine Aminotransferase (ALT/SGPT) 63, Alkaline Phosphatase 200H, C- Reactive Protein, Quantitative 5.1H, Pro-B-Type Natriuretic Peptide 39, Total Protein 7.3, Albumin 2.9L, Globulin 4.4, Albumin/Globulin Ratio 0.7L, Lipase > 2000H Height (Feet): 5 Height (Inches): 8.00 Weight (Pounds): 173 Objective PHYSICAL EXAMINATION: Vitals: Have been reviewed GENERAL: No acute distress HEENT: Head is normocephalic and atraumatic. Eyes, pupils are equal, round, and reactive to light. Mouth is clear. NECK: There is no palpable thyromegaly or adenopathy. CHEST: Clear to auscultation and percussion. HEART: Tachycardic, but there is no gallop or murmur. ABDOMEN: Soft and flat mild tenderness mainly on the left side of the abdomen, but there is no guarding or rebound tenderness. Bowel sounds are present. GENITAL: Deferred. EXTREMITIES: Within normal limits. Pawel Ferrera MD Sep 05, 2018 13:41
[2018-09-05] MEDS ORDERED: NS 275ml ONE (14:31)
[2018-09-05 16:00] VITALS: BP 121/80
--- NOTE | 2018-09-05 17:10 | General Progress Note ---
Assessment/Plan Assessment/Plan Assessment/Plan Problems: (1) Abnormal LFTs (liver function tests) ICD Codes: R94.5 - Abnormal results of liver function studies SNOMED: 184877550 (2) Abdominal pain - resolved ICD Codes: R10.9 - Unspecified abdominal pain SNOMED: 59336323 (3) Pancreatitis - likely abnormal amylase and lipase due to chronic EtOH pancreatitis ICD Codes: K85.90 - Acute pancreatitis without necrosis or infection, unspecified SNOMED: 00904466 (4) Hyponatremia ICD Codes: E87.1 - Hypo-osmolality and hyponatremia SNOMED: 69340904 (5) Dehydration ICD Codes: E86.0 - Dehydration SNOMED: 35406233 (6) Alcohol dependence ICD Codes: F10.20 - Alcohol dependence, uncomplicated (7) Abnormal GB - Meets criteria for cholecystectomy (pancreatitis and Polyp) Assessment/Plan denies ETOH/Drug use , last ETOH use x3 weeks mild transaminitis, elevated bilirubin, elevated GGT >> possible liver damage due to overuse of alcohol vs pancreatitis elevated lipase levels, pancreatitis utox negative hepatitis panel negative MRCP reviewed >> possible 1.2 cm gallbladder polyp. No evidence of biliary ductal dilatation or choledocholithiasis. Enlarged fatty liver. FLD, adv as tolerated cont IVFs pain mgmt zofran prn trend LFTs, lipase fu labs Subjective Allergies: Coded Allergies: No Known Allergies (Unverified , 04/26/18) Subjective feels well no abd pain tolerating solids Objective Last 24 Hour Vital Signs Date Time Temp Pulse Resp B/P (MAP) Pulse Ox O2 Delivery O2 Flow Rate FiO2 09/05/18 16:00 98.7 86 20 121/80 (94) 98 09/05/18 12:00 98.6 86 20 121/84 (96) 98 09/05/18 12:00 104 09/05/18 09:00 Room Air 09/05/18 08:00 97.5 106 20 139/92 (108) 99 09/05/18 08:00 106 09/05/18 04:00 98.9 104 20 130/82 (98) 99 09/05/18 04:00 120 09/05/18 00:00 86 09/05/18 00:00 98.9 94 20 126/78 (94) 98 09/04/18 21:00 Room Air 09/04/18 20:00 83 09/04/18 20:00 97.5 94 20 120/80 (93) 98 Intake and Output 09/04/18 09/05/18 19:00 07:00 Intake Total 1807.5 ml 300 ml Output Total 1900 ml Balance -92.5 ml 300 ml Intake Oral 1080 ml 300 ml IV Total 727.5 ml Output Urine Total 1900 ml # Voids 3 # Bowel Movements 1 Laboratory Tests 09/05/18 05:20: White Blood Count 8.6, Red Blood Count 3.55L, Hemoglobin 11.1L, Hematocrit 32.0L , Mean Corpuscular Volume 90, Mean Corpuscular Hemoglobin 31.2H, Mean Corpuscular Hemoglobin Concent 34.7, Red Cell Distribution Width 13.4, Platelet Count 154, Mean Platelet Volume 7.8, Neutrophils (%) (Auto) 71.8, Lymphocytes (% ) (Auto) 13.1L, Monocytes (%) (Auto) 13.4H, Eosinophils (%) (Auto) 1.0, Basophils (%) (Auto) 0.7, Sodium Level 135L, Potassium Level 2.6*L, Chloride Level 97L, Carbon Dioxide Level 27, Anion Gap 10, Blood Urea Nitrogen 3L, Creatinine 0.8, Estimat Glomerular Filtration Rate > 60, Glucose Level 132H, Uric Acid 1.4L, Calcium Level 9.1, Phosphorus Level 2.8, Magnesium Level 1.6L, Total Bilirubin 4.1H, Direct Bilirubin 3.6H, Aspartate Amino Transf (AST/SGOT) 120H, Alanine Aminotransferase (ALT/SGPT) 63, Alkaline Phosphatase 200H, C- Reactive Protein, Quantitative 5.3H, Pro-B-Type Natriuretic Peptide 39, Total Protein 7.3, Albumin 2.9L, Globulin 4.4, Albumin/Globulin Ratio 0.7L, Lipase > 2000H Height (Feet): 5 Height (Inches): 8.00 Weight (Pounds): 173 Objective WDWN NCAT supple CTA RRR Abd soft ND NT no edema Nga Fields MD Sep 05, 2018 17:10
[2018-09-05 20:00] VITALS: BP 116/79
--- NOTE | 2018-09-05 22:58 | General Progress Note ---
Assessment/Plan Problem List: (1) Alcohol dependence ICD Codes: F10.20 - Alcohol dependence, uncomplicated SNOMED: 44535105 Qualifiers: Qualified Codes: F10.288 - Alcohol dependence with other alcohol-induced disorder Status: stable, progressing Assessment/Plan valium prozac Subjective Neurologic/Psychiatric: Reports: anxiety, depressed, emotional problems Allergies: Coded Allergies: No Known Allergies (Unverified , 04/26/18) Objective Last 24 Hour Vital Signs Date Time Temp Pulse Resp B/P (MAP) Pulse Ox O2 Delivery O2 Flow Rate FiO2 09/05/18 20:00 98.2 66 18 116/79 (91) 98 09/05/18 16:00 98.7 86 20 121/80 (94) 98 09/05/18 16:00 92 09/05/18 12:00 98.6 86 20 121/84 (96) 98 09/05/18 12:00 104 09/05/18 09:00 Room Air 09/05/18 08:00 97.5 106 20 139/92 (108) 99 09/05/18 08:00 106 09/05/18 04:00 98.9 104 20 130/82 (98) 99 09/05/18 04:00 120 09/05/18 00:00 86 09/05/18 00:00 98.9 94 20 126/78 (94) 98 Intake and Output 09/04/18 09/05/18 19:00 07:00 Intake Total 1807.5 ml 300 ml Output Total 1900 ml Balance -92.5 ml 300 ml Intake Oral 1080 ml 300 ml IV Total 727.5 ml Output Urine Total 1900 ml # Voids 3 # Bowel Movements 1 Laboratory Tests 09/05/18 05:20: White Blood Count 8.6, Red Blood Count 3.55L, Hemoglobin 11.1L, Hematocrit 32.0L , Mean Corpuscular Volume 90, Mean Corpuscular Hemoglobin 31.2H, Mean Corpuscular Hemoglobin Concent 34.7, Red Cell Distribution Width 13.4, Platelet Count 154, Mean Platelet Volume 7.8, Neutrophils (%) (Auto) 71.8, Lymphocytes (% ) (Auto) 13.1L, Monocytes (%) (Auto) 13.4H, Eosinophils (%) (Auto) 1.0, Basophils (%) (Auto) 0.7, Sodium Level 135L, Potassium Level 2.6*L, Chloride Level 97L, Carbon Dioxide Level 27, Anion Gap 10, Blood Urea Nitrogen 3L, Creatinine 0.8, Estimat Glomerular Filtration Rate > 60, Glucose Level 132H, Uric Acid 1.4L, Calcium Level 9.1, Phosphorus Level 2.8, Magnesium Level 1.6L, Total Bilirubin 4.1H, Direct Bilirubin 3.6H, Aspartate Amino Transf (AST/SGOT) 120H, Alanine Aminotransferase (ALT/SGPT) 63, Alkaline Phosphatase 200H, C- Reactive Protein, Quantitative 5.3H, Pro-B-Type Natriuretic Peptide 39, Total Protein 7.3, Albumin 2.9L, Globulin 4.4, Albumin/Globulin Ratio 0.7L, Lipase > 2000H Height (Feet): 5 Height (Inches): 8.00 Weight (Pounds): 173 General Appearance: no apparent distress, alert Reno Lozano MD Sep 05, 2018 22:58
[2018-09-06] VITALS: BP 119/81
[2018-09-06 04:00] VITALS: BP 122/80
[2018-09-06 05:48] LABS: BASOPHILS % (AUTO) 1.2 % (0.0-2.0); EOSINOPHILS % (AUTO) 1.1 % (0.0-3.0); HEMATOCRIT 36.2 % (42.0-52.0); HEMOGLOBIN 12.1 G/DL (14.2-18.0); LYMPHOCYTES % (AUTO) 12.2 % (20.0-45.0); MEAN CORPUSCULAR VOLUME 90 FL (80-99); MONOCYTES % (AUTO) 18.1 % (1.0-10.0); NEUTROPHILS % (AUTO) 67.4 % (45.0-75.0); PLATELET COUNT 204 K/UL (150-450); RED CELL DISTRIBUTION WIDTH 13.6 % (11.6-14.8)
[2018-09-06 06:16] LABS: ALANINE AMINOTRANSFERASE 59 U/L (12-78); ALBUMIN 3.1 G/DL (3.4-5.0); ALBUMIN/GLOBULIN RATIO 0.6 (1.0-2.7); ALKALINE PHOSPHATASE 226 U/L (46-116); ANION GAP 12 mmol/L (5-15); ASPARTATE AMINO TRANSFERASE 103 U/L (15-37); BILIRUBIN,TOTAL 3.9 MG/DL (0.2-1.0); BLOOD UREA NITROGEN 5 mg/dL (7-18); CALCIUM 9.3 MG/DL (8.5-10.1); CARBON DIOXIDE 26 MMOL/L (21-32); CHLORIDE 96 MMOL/L (98-107); CREATININE 0.7 MG/DL (0.55-1.30); POTASSIUM 3.4 MMOL/L (3.5-5.1); SODIUM 133 MMOL/L (136-145)
[2018-09-06 06:22] LABS: AMYLASE 558 U/L (25-115)
[2018-09-06 07:07] LABS: PHOSPHORUS 2.3 MG/DL (2.5-4.9)
[2018-09-06 07:20] LABS: BILIRUBIN,DIRECT 3.3 MG/DL (0.0-0.3)
[2018-09-06 08:00] VITALS: BP 123/83
[2018-09-06] MEDS: Thiamine 100mg tab ORAL SCH (08:11)
[2018-09-06] MEDS: Docusate Sod/Senna tab ORAL SCH ×2 (08:11→17:21)
--- NOTE | 2018-09-06 09:20 | General Progress Note ---
Assessment/Plan Status: stable Assessment/Plan # Thrombocytopenia - likely related to live etiology and/or reactive process --> Plt count has improved --> Peripheral smear ordered to evaluate for blasts/schistocytes and is negative --> Hep panel and HIV are both negative --> US abd shows enlarged fatty liver, --> CT abd shows fatty liver. --> Abx and other meds have been reviewed. --> does have pancreatitis, eval for potential liver disease # Leukocytosis. Likely related to underlying infection versus reactive process. Now improved, has received course of antibiotics. --> WBC has improved/resolved --> Blood and urine cultures reviewed, micro pending --> Cont to monitor for improvement --> Imaging has been reviewed, shows no acute process --> Has been started on abx, empiric treatment # Pancreatitis with abdominal pain. GI is following, appreciate recs. --> Pt is NPO and on IVF --> GGT --> Zofran prn --> MRCP reviewed >> possible 1.2 cm gallbladder polyp. No evidence of biliary ductal dilatation or choledocholithiasis. Enlarged fatty liver. # Transaminitis -- as per gi eval GREATLY APPRECIATE CONSULTATION. Subjective Date patient seen: Sep 06, 2018 Allergies: Coded Allergies: No Known Allergies (Unverified , 04/26/18) All Systems: reviewed and negative except above Subjective Pt resting in bed, in stable condition. No acute events. Objective Last 24 Hour Vital Signs Date Time Temp Pulse Resp B/P (MAP) Pulse Ox O2 Delivery O2 Flow Rate FiO2 09/06/18 08:00 98.4 118 18 123/83 (96) 98 09/06/18 04:00 80 09/06/18 04:00 97.9 61 18 122/80 (94) 96 09/06/18 00:00 81 09/06/18 00:00 97.7 76 19 119/81 (94) 97 09/05/18 21:00 Room Air 09/05/18 20:00 98.2 66 18 116/79 (91) 98 09/05/18 20:00 88 09/05/18 16:00 98.7 86 20 121/80 (94) 98 09/05/18 16:00 92 09/05/18 12:00 98.6 86 20 121/84 (96) 98 09/05/18 12:00 104 Intake and Output 09/05/18 09/06/18 19:00 07:00 Intake Total 740 ml Output Total 900 ml Balance -160 ml Intake Oral 740 ml Output Urine Total 900 ml # Voids 4 2 Laboratory Tests 09/06/18 05:25: White Blood Count 9.0, Red Blood Count 4.00L, Hemoglobin 12.1L, Hematocrit 36.2L , Mean Corpuscular Volume 90, Mean Corpuscular Hemoglobin 30.2, Mean Corpuscular Hemoglobin Concent 33.4, Red Cell Distribution Width 13.6, Platelet Count 204, Mean Platelet Volume 8.1, Neutrophils (%) (Auto) 67.4, Lymphocytes (% ) (Auto) 12.2L, Monocytes (%) (Auto) 18.1H, Eosinophils (%) (Auto) 1.1, Basophils (%) (Auto) 1.2, Sodium Level 133L, Potassium Level 3.4L, Chloride Level 96L, Carbon Dioxide Level 26, Anion Gap 12, Blood Urea Nitrogen 5L, Creatinine 0.7, Estimat Glomerular Filtration Rate > 60, Glucose Level 127H, Calcium Level 9.3, Phosphorus Level 2.3L, Magnesium Level 2.2, Total Bilirubin 3.9H, Direct Bilirubin 3.3H, Aspartate Amino Transf (AST/SGOT) 103H, Alanine Aminotransferase (ALT/SGPT) 59, Alkaline Phosphatase 226H, Total Protein 8.1, Albumin 3.1L, Globulin 5.0, Albumin/Globulin Ratio 0.6L, Amylase Level 558*H, Lipase > 2000H Height (Feet): 5 Height (Inches): 8.00 Weight (Pounds): 173 Objective PHYSICAL EXAMINATION: Vitals: Have been reviewed GENERAL: No acute distress HEENT: Head is normocephalic and atraumatic. Eyes, pupils are equal, round, and reactive to light. Mouth is clear. NECK: There is no palpable thyromegaly or adenopathy. CHEST: Clear to auscultation and percussion. HEART: Tachycardic, but there is no gallop or murmur. ABDOMEN: Soft and flat mild tenderness mainly on the left side of the abdomen, but there is no guarding or rebound tenderness. Bowel sounds are present. GENITAL: Deferred. EXTREMITIES: Within normal limits. Pawel Ferrera MD Sep 06, 2018 09:20
--- NOTE | 2018-09-06 09:46 | Infectious Diseases Prog Note ---
Assessment/Plan Assessment/Plan A: 1. Acute pancreatitis, maybe secondary to alcohol abuse. 2. Hyponatremia. 3. Acute renal failure, resolved 4. Fatty liver. 5. Hiatal hernia. 6. Hypokalemia 7. Gallbladder polyp P Observe off antibiotic Subjective ROS Limited/Unobtainable: No Constitutional: Reports: no symptoms Respiratory: Reports: no symptoms Cardiovascular: Reports: no symptoms Gastrointestinal/Abdominal: Reports: no symptoms Genitourinary: Reports: no symptoms Neurologic: Reports: no symptoms Allergies: Coded Allergies: No Known Allergies (Unverified , 04/26/18) Objective Vital Signs Last 24 Hour Vital Signs Date Time Temp Pulse Resp B/P (MAP) Pulse Ox O2 Delivery O2 Flow Rate FiO2 09/06/18 09:00 Room Air 09/06/18 08:00 98.4 118 18 123/83 (96) 98 09/06/18 04:00 80 09/06/18 04:00 97.9 61 18 122/80 (94) 96 09/06/18 00:00 81 09/06/18 00:00 97.7 76 19 119/81 (94) 97 09/05/18 21:00 Room Air 09/05/18 20:00 98.2 66 18 116/79 (91) 98 09/05/18 20:00 88 09/05/18 16:00 98.7 86 20 121/80 (94) 98 09/05/18 16:00 92 09/05/18 12:00 98.6 86 20 121/84 (96) 98 09/05/18 12:00 104 Height (Feet): 5 Height (Inches): 8.00 Weight (Pounds): 173 General Appearance: no acute distress HEENT: mucous membranes moist Respiratory/Chest: lungs clear Cardiovascular: normal rate Abdomen: soft, non tender Extremities: no edema Neurologic/Psychiatric: alert, oriented x 3, responsive Laboratory Tests Test 09/06/18 05:25 White Blood Count 9.0 K/UL (4.8-10.8) Red Blood Count 4.00 M/UL (4.70-6.10) L Hemoglobin 12.1 G/DL (14.2-18.0) L Hematocrit 36.2 % (42.0-52.0) L Mean Corpuscular Volume 90 FL (80-99) Mean Corpuscular Hemoglobin 30.2 PG (27.0-31.0) Mean Corpuscular Hemoglobin Concent 33.4 G/DL (32.0-36.0) Red Cell Distribution Width 13.6 % (11.6-14.8) Platelet Count 204 K/UL (150-450) Mean Platelet Volume 8.1 FL (6.5-10.1) Neutrophils (%) (Auto) 67.4 % (45.0-75.0) Lymphocytes (%) (Auto) 12.2 % (20.0-45.0) L Monocytes (%) (Auto) 18.1 % (1.0-10.0) H Eosinophils (%) (Auto) 1.1 % (0.0-3.0) Basophils (%) (Auto) 1.2 % (0.0-2.0) Sodium Level 133 MMOL/L (136-145) L Potassium Level 3.4 MMOL/L (3.5-5.1) L Chloride Level 96 MMOL/L (98-107) L Carbon Dioxide Level 26 MMOL/L (21-32) Anion Gap 12 mmol/L (5-15) Blood Urea Nitrogen 5 mg/dL (7-18) L Creatinine 0.7 MG/DL (0.55-1.30) Estimat Glomerular Filtration Rate > 60 mL/min (>60) Glucose Level 127 MG/DL (74-106) H Calcium Level 9.3 MG/DL (8.5-10.1) Phosphorus Level 2.3 MG/DL (2.5-4.9) L Magnesium Level 2.2 MG/DL (1.8-2.4) Total Bilirubin 3.9 MG/DL (0.2-1.0) H Direct Bilirubin 3.3 MG/DL (0.0-0.3) H Aspartate Amino Transf (AST/SGOT) 103 U/L (15-37) H Alanine Aminotransferase (ALT/SGPT) 59 U/L (12-78) Alkaline Phosphatase 226 U/L (46-116) H Total Protein 8.1 G/DL (6.4-8.2) Albumin 3.1 G/DL (3.4-5.0) L Globulin 5.0 g/dL Albumin/Globulin Ratio 0.6 (1.0-2.7) L Amylase Level 558 U/L (25-115) *H Lipase > 2000 U/L (73-393) H Current Medications Medications (Trade) Dose Ordered Sig/Solis Route PRN Reason Start Time Stop Time Status Last Admin Dose Admin Acetaminophen/ Hydrocodone Bitart ([place] 5/325) 1 tab Q4H PRN ORAL Moderate Pain (Pain Scale 4-6) 09/03/18 09:45 09/10/18 09:44 Diazepam (Valium) 10 mg EVERY 2 HOURS PRN ORAL For Anxiety 09/01/18 23:30 09/08/18 23:29 09/05/18 01:23 Fluoxetine HCl (PROzac) 20 mg DAILY ORAL 09/02/18 12:34 10/02/18 12:33 09/06/18 08:11 Folic Acid (Folate) 1 mg DAILY ORAL 09/02/18 09:00 10/02/18 08:59 09/06/18 08:11 Hydromorphone HCl (Dilaudid) 0.5 mg Q4H PRN IVP Severe Pain (Pain Scale 7-10) 09/02/18 09:15 09/09/18 01:14 Iopamidol (Isovue-300 100ml) 100 ml NOW PRN INJ Radiology Procedure 09/01/18 19:45 Mirtazapine (Remeron) 7.5 mg BEDTIME ORAL 09/02/18 21:00 10/02/18 20:59 09/05/18 20:43 Ondansetron HCl (Zofran) 4 mg Q6H PRN IVP Nausea & Vomiting 09/02/18 01:15 10/02/18 01:14 09/02/18 08:39 Pantoprazole (Protonix) 40 mg EVERY 12 HOURS ORAL 09/03/18 21:00 10/03/18 20:59 09/06/18 08:11 Potassium Chloride (K-Dur) 40 meq TID ORAL 09/05/18 09:00 10/05/18 08:59 09/06/18 08:10 Senna/Docusate Sodium (Summer-Colace) 1 tab TWICE A DAY ORAL 09/04/18 09:00 10/04/18 08:59 09/06/18 08:11 Thiamine HCl (Vitamin B1) 100 mg DAILY ORAL 09/02/18 09:00 10/02/18 08:59 09/06/18 08:11 Anam Corona MD Sep 06, 2018 09:46
--- NOTE | 2018-09-06 11:07 | General Progress Note ---
Assessment/Plan Assessment/Plan (1) Abdominal pain (2) Pancreatitis Patient will be continued on Berry and Dilaudid. D/w Dr. Hammer and he concurred. Subjective Date patient seen: Sep 06, 2018 Time patient seen: 10:30 - am Constitutional: Reports: no symptoms Cardiovascular: Reports: no symptoms Respiratory: Reports: no symptoms Gastrointestinal/Abdominal: Reports: no symptoms Genitourinary: Reports: no symptoms Neurologic/Psychiatric: Reports: no symptoms Endocrine: Reports: no symptoms Hematologic/Lymphatic: Reports: no symptoms Allergies: Coded Allergies: No Known Allergies (Unverified , 04/26/18) Subjective Patient is in bed and showing no signs of pain or distress. No c/o pain in his abdomen. Objective Last 24 Hour Vital Signs Date Time Temp Pulse Resp B/P (MAP) Pulse Ox O2 Delivery O2 Flow Rate FiO2 09/06/18 09:00 Room Air 09/06/18 08:00 98.4 118 18 123/83 (96) 98 09/06/18 08:00 121 09/06/18 04:00 80 09/06/18 04:00 97.9 61 18 122/80 (94) 96 09/06/18 00:00 81 09/06/18 00:00 97.7 76 19 119/81 (94) 97 09/05/18 21:00 Room Air 09/05/18 20:00 98.2 66 18 116/79 (91) 98 09/05/18 20:00 88 09/05/18 16:00 98.7 86 20 121/80 (94) 98 09/05/18 16:00 92 09/05/18 12:00 98.6 86 20 121/84 (96) 98 09/05/18 12:00 104 Intake and Output 09/05/18 09/06/18 19:00 07:00 Intake Total 740 ml Output Total 900 ml Balance -160 ml Intake Oral 740 ml Output Urine Total 900 ml # Voids 4 2 Laboratory Tests 09/06/18 05:25: White Blood Count 9.0, Red Blood Count 4.00L, Hemoglobin 12.1L, Hematocrit 36.2L , Mean Corpuscular Volume 90, Mean Corpuscular Hemoglobin 30.2, Mean Corpuscular Hemoglobin Concent 33.4, Red Cell Distribution Width 13.6, Platelet Count 204, Mean Platelet Volume 8.1, Neutrophils (%) (Auto) 67.4, Lymphocytes (% ) (Auto) 12.2L, Monocytes (%) (Auto) 18.1H, Eosinophils (%) (Auto) 1.1, Basophils (%) (Auto) 1.2, Sodium Level 133L, Potassium Level 3.4L, Chloride Level 96L, Carbon Dioxide Level 26, Anion Gap 12, Blood Urea Nitrogen 5L, Creatinine 0.7, Estimat Glomerular Filtration Rate > 60, Glucose Level 127H, Calcium Level 9.3, Phosphorus Level 2.3L, Magnesium Level 2.2, Total Bilirubin 3.9H, Direct Bilirubin 3.3H, Aspartate Amino Transf (AST/SGOT) 103H, Alanine Aminotransferase (ALT/SGPT) 59, Alkaline Phosphatase 226H, Total Protein 8.1, Albumin 3.1L, Globulin 5.0, Albumin/Globulin Ratio 0.6L, Amylase Level 558*H, Lipase > 2000H Height (Feet): 5 Height (Inches): 8.00 Weight (Pounds): 173 General Appearance: no apparent distress, alert EENT: PERRL/EOMI, normal ENT inspection Neck: non-tender, normal alignment Cardiovascular: normal rate, regular rhythm Respiratory/Chest: lungs clear, normal breath sounds Abdomen: non tender, soft Extremities: non-tender Edema: no edema noted Arm (L), no edema noted Arm (R), no edema noted Leg (L), no edema noted Leg (R), no edema noted Pedal (L), no edema noted Pedal (R), no edema noted Generalized Neurologic: alert, oriented x 3 Skin: warm/dry David La Sep 06, 2018 11:06
[2018-09-06 12:00] VITALS: BP 116/80
[2018-09-06] MEDS ORDERED: Potassium Phosphate 20 MM in NS 275 ML IV ONE (12:00)
--- NOTE | 2018-09-06 12:30 | General Surgery Progress Note ---
General Surgery-Progress Note Subjective Symptoms: improved, BM Objective Last 24 Hour Vital Signs Date Time Temp Pulse Resp B/P (MAP) Pulse Ox O2 Delivery O2 Flow Rate FiO2 09/06/18 12:00 98.9 93 18 116/80 (92) 99 09/06/18 09:00 Room Air 09/06/18 08:00 98.4 118 18 123/83 (96) 98 09/06/18 08:00 121 09/06/18 04:00 80 09/06/18 04:00 97.9 61 18 122/80 (94) 96 09/06/18 00:00 81 09/06/18 00:00 97.7 76 19 119/81 (94) 97 09/05/18 21:00 Room Air 09/05/18 20:00 98.2 66 18 116/79 (91) 98 09/05/18 20:00 88 09/05/18 16:00 98.7 86 20 121/80 (94) 98 09/05/18 16:00 92 I&O Intake and Output 09/05/18 09/06/18 19:00 07:00 Intake Total 740 ml Output Total 900 ml Balance -160 ml Intake Oral 740 ml Output Urine Total 900 ml # Voids 4 2 Respiratory: clear Abdomen: soft, flat, non-tender, present bowel sounds Extremities: no tenderness Laboratory Tests Test 09/06/18 05:25 White Blood Count 9.0 K/UL (4.8-10.8) Red Blood Count 4.00 M/UL (4.70-6.10) L Hemoglobin 12.1 G/DL (14.2-18.0) L Hematocrit 36.2 % (42.0-52.0) L Mean Corpuscular Volume 90 FL (80-99) Mean Corpuscular Hemoglobin 30.2 PG (27.0-31.0) Mean Corpuscular Hemoglobin Concent 33.4 G/DL (32.0-36.0) Red Cell Distribution Width 13.6 % (11.6-14.8) Platelet Count 204 K/UL (150-450) Mean Platelet Volume 8.1 FL (6.5-10.1) Neutrophils (%) (Auto) 67.4 % (45.0-75.0) Lymphocytes (%) (Auto) 12.2 % (20.0-45.0) L Monocytes (%) (Auto) 18.1 % (1.0-10.0) H Eosinophils (%) (Auto) 1.1 % (0.0-3.0) Basophils (%) (Auto) 1.2 % (0.0-2.0) Sodium Level 133 MMOL/L (136-145) L Potassium Level 3.4 MMOL/L (3.5-5.1) L Chloride Level 96 MMOL/L (98-107) L Carbon Dioxide Level 26 MMOL/L (21-32) Anion Gap 12 mmol/L (5-15) Blood Urea Nitrogen 5 mg/dL (7-18) L Creatinine 0.7 MG/DL (0.55-1.30) Estimat Glomerular Filtration Rate > 60 mL/min (>60) Glucose Level 127 MG/DL (74-106) H Calcium Level 9.3 MG/DL (8.5-10.1) Phosphorus Level 2.3 MG/DL (2.5-4.9) L Magnesium Level 2.2 MG/DL (1.8-2.4) Total Bilirubin 3.9 MG/DL (0.2-1.0) H Direct Bilirubin 3.3 MG/DL (0.0-0.3) H Aspartate Amino Transf (AST/SGOT) 103 U/L (15-37) H Alanine Aminotransferase (ALT/SGPT) 59 U/L (12-78) Alkaline Phosphatase 226 U/L (46-116) H Total Protein 8.1 G/DL (6.4-8.2) Albumin 3.1 G/DL (3.4-5.0) L Globulin 5.0 g/dL Albumin/Globulin Ratio 0.6 (1.0-2.7) L Amylase Level 558 U/L (25-115) *H Lipase > 2000 U/L (73-393) H Assessment Additional Comments abdominal pain resolved Plan Additional Comments he did not have abdominal pain for few days he is on regular diet. I am not sure about the source and etiology of high bili and lipase. obviously pancreatitis is not the source . Marla Vaughn MD Sep 06, 2018 12:30
--- NOTE | 2018-09-06 12:42 | Nephrology Progress Note ---
Assessment/Plan Problem List: (1) Pancreatitis (2) Abnormal LFTs (liver function tests) (3) Abdominal pain (4) Alcohol dependence (5) Hyponatremia Assessment tolerating po Pancreatitis high Lipase Abnormal LFTs Hyponatremia Dehydration I Plan DC IV Fluids- K PO Phos and Mag supplement as needed Protonix low fat diet Pancrease Monitor lytes continue rest Subjective ROS Limited/Unobtainable: No Objective Objective Last 24 Hour Vital Signs Date Time Temp Pulse Resp B/P (MAP) Pulse Ox O2 Delivery O2 Flow Rate FiO2 09/06/18 12:00 98.9 93 18 116/80 (92) 99 09/06/18 09:00 Room Air 09/06/18 08:00 98.4 118 18 123/83 (96) 98 09/06/18 08:00 121 09/06/18 04:00 80 09/06/18 04:00 97.9 61 18 122/80 (94) 96 09/06/18 00:00 81 09/06/18 00:00 97.7 76 19 119/81 (94) 97 09/05/18 21:00 Room Air 09/05/18 20:00 98.2 66 18 116/79 (91) 98 09/05/18 20:00 88 09/05/18 16:00 98.7 86 20 121/80 (94) 98 09/05/18 16:00 92 Intake and Output 09/05/18 09/06/18 19:00 07:00 Intake Total 740 ml Output Total 900 ml Balance -160 ml Intake Oral 740 ml Output Urine Total 900 ml # Voids 4 2 Laboratory Tests 09/06/18 05:25: White Blood Count 9.0, Red Blood Count 4.00L, Hemoglobin 12.1L, Hematocrit 36.2L , Mean Corpuscular Volume 90, Mean Corpuscular Hemoglobin 30.2, Mean Corpuscular Hemoglobin Concent 33.4, Red Cell Distribution Width 13.6, Platelet Count 204, Mean Platelet Volume 8.1, Neutrophils (%) (Auto) 67.4, Lymphocytes (% ) (Auto) 12.2L, Monocytes (%) (Auto) 18.1H, Eosinophils (%) (Auto) 1.1, Basophils (%) (Auto) 1.2, Sodium Level 133L, Potassium Level 3.4L, Chloride Level 96L, Carbon Dioxide Level 26, Anion Gap 12, Blood Urea Nitrogen 5L, Creatinine 0.7, Estimat Glomerular Filtration Rate > 60, Glucose Level 127H, Calcium Level 9.3, Phosphorus Level 2.3L, Magnesium Level 2.2, Total Bilirubin 3.9H, Direct Bilirubin 3.3H, Aspartate Amino Transf (AST/SGOT) 103H, Alanine Aminotransferase (ALT/SGPT) 59, Alkaline Phosphatase 226H, Total Protein 8.1, Albumin 3.1L, Globulin 5.0, Albumin/Globulin Ratio 0.6L, Amylase Level 558*H, Lipase > 2000H Height (Feet): 5 Height (Inches): 8.00 Weight (Pounds): 173 General Appearance: no apparent distress Cardiovascular: normal rate Respiratory/Chest: lungs clear Abdomen: soft Objective no change Deion Kendrick MD Sep 06, 2018 12:42
[2018-09-06] MEDS: Pancrease Cap ORAL SCH ×2 (13:02→17:22)
[2018-09-06 16:00] VITALS: BP 117/83
--- NOTE | 2018-09-06 16:39 | General Progress Note ---
Assessment/Plan Assessment/Plan Assessment/Plan Problems: (1) Abnormal LFTs (liver function tests) ICD Codes: R94.5 - Abnormal results of liver function studies SNOMED: 385081036 (2) Abdominal pain - resolved ICD Codes: R10.9 - Unspecified abdominal pain SNOMED: 15023137 (3) Pancreatitis - likely abnormal amylase and lipase due to chronic EtOH pancreatitis ICD Codes: K85.90 - Acute pancreatitis without necrosis or infection, unspecified SNOMED: 27162628 (4) Hyponatremia ICD Codes: E87.1 - Hypo-osmolality and hyponatremia SNOMED: 28060747 (5) Dehydration ICD Codes: E86.0 - Dehydration SNOMED: 59277779 (6) Alcohol dependence ICD Codes: F10.20 - Alcohol dependence, uncomplicated (7) Abnormal GB - Meets criteria for cholecystectomy (pancreatitis and Polyp) Assessment/Plan denies ETOH/Drug use , last ETOH use x3 weeks mild transaminitis, elevated bilirubin, elevated GGT >> possible liver damage due to overuse of alcohol vs pancreatitis elevated lipase levels, pancreatitis utox negative hepatitis panel negative MRCP reviewed >> possible 1.2 cm gallbladder polyp. No evidence of biliary ductal dilatation or choledocholithiasis. Enlarged fatty liver. FLD, adv as tolerated cont IVFs pain mgmt zofran prn trend LFTs, lipase fu labs Subjective Allergies: Coded Allergies: No Known Allergies (Unverified , 04/26/18) Subjective feels well no abd pain tolerating solids Objective Last 24 Hour Vital Signs Date Time Temp Pulse Resp B/P (MAP) Pulse Ox O2 Delivery O2 Flow Rate FiO2 09/06/18 12:00 98.9 93 18 116/80 (92) 99 09/06/18 12:00 98 09/06/18 09:00 Room Air 09/06/18 08:00 98.4 118 18 123/83 (96) 98 09/06/18 08:00 121 09/06/18 04:00 80 09/06/18 04:00 97.9 61 18 122/80 (94) 96 09/06/18 00:00 81 09/06/18 00:00 97.7 76 19 119/81 (94) 97 09/05/18 21:00 Room Air 09/05/18 20:00 98.2 66 18 116/79 (91) 98 09/05/18 20:00 88 Intake and Output 09/05/18 09/06/18 19:00 07:00 Intake Total 740 ml Output Total 900 ml Balance -160 ml Intake Oral 740 ml Output Urine Total 900 ml # Voids 4 2 Laboratory Tests 09/06/18 05:25: White Blood Count 9.0, Red Blood Count 4.00L, Hemoglobin 12.1L, Hematocrit 36.2L , Mean Corpuscular Volume 90, Mean Corpuscular Hemoglobin 30.2, Mean Corpuscular Hemoglobin Concent 33.4, Red Cell Distribution Width 13.6, Platelet Count 204, Mean Platelet Volume 8.1, Neutrophils (%) (Auto) 67.4, Lymphocytes (% ) (Auto) 12.2L, Monocytes (%) (Auto) 18.1H, Eosinophils (%) (Auto) 1.1, Basophils (%) (Auto) 1.2, Sodium Level 133L, Potassium Level 3.4L, Chloride Level 96L, Carbon Dioxide Level 26, Anion Gap 12, Blood Urea Nitrogen 5L, Creatinine 0.7, Estimat Glomerular Filtration Rate > 60, Glucose Level 127H, Calcium Level 9.3, Phosphorus Level 2.3L, Magnesium Level 2.2, Total Bilirubin 3.9H, Direct Bilirubin 3.3H, Gamma Glutamyl Transpeptidase 5207H, Aspartate Amino Transf (AST/SGOT) 103H, Alanine Aminotransferase (ALT/SGPT) 59, Alkaline Phosphatase 226H, Total Protein 8.1, Albumin 3.1L, Globulin 5.0, Albumin/ Globulin Ratio 0.6L, Amylase Level 558*H, Lipase > 2000H Height (Feet): 5 Height (Inches): 8.00 Weight (Pounds): 173 Objective WDWN NCAT supple CTA RRR Abd soft ND NT no edema Nga Fields MD Sep 06, 2018 16:39
--- NOTE | 2018-09-06 19:51 | General Progress Note ---
Assessment/Plan Problem List: (1) Dehydration ICD Codes: E86.0 - Dehydration SNOMED: 60389255 (2) Pancreatitis ICD Codes: K85.90 - Acute pancreatitis without necrosis or infection, unspecified SNOMED: 20076082 (3) Abdominal pain ICD Codes: R10.9 - Unspecified abdominal pain SNOMED: 78535933 (4) Abnormal LFTs (liver function tests) ICD Codes: R94.5 - Abnormal results of liver function studies SNOMED: 768288950 (5) Alcohol dependence ICD Codes: F10.20 - Alcohol dependence, uncomplicated SNOMED: 49482334 Qualifiers: Qualified Codes: F10.288 - Alcohol dependence with other alcohol-induced disorder Status: progressing Assessment/Plan dc planning pancreatitis is improving abdominal pain is improving etoh Subjective ROS Limited/Unobtainable: Yes Allergies: Coded Allergies: No Known Allergies (Unverified , 04/26/18) Objective Last 24 Hour Vital Signs Date Time Temp Pulse Resp B/P (MAP) Pulse Ox O2 Delivery O2 Flow Rate FiO2 09/06/18 16:00 117 09/06/18 16:00 98.6 94 18 117/83 (94) 87 09/06/18 12:00 98.9 93 18 116/80 (92) 99 09/06/18 12:00 98 09/06/18 09:00 Room Air 09/06/18 08:00 98.4 118 18 123/83 (96) 98 09/06/18 08:00 121 09/06/18 04:00 80 09/06/18 04:00 97.9 61 18 122/80 (94) 96 09/06/18 00:00 81 09/06/18 00:00 97.7 76 19 119/81 (94) 97 09/05/18 21:00 Room Air 09/05/18 20:00 98.2 66 18 116/79 (91) 98 09/05/18 20:00 88 Intake and Output 09/05/18 09/06/18 19:00 07:00 Intake Total 740 ml Output Total 900 ml Balance -160 ml Intake Oral 740 ml Output Urine Total 900 ml # Voids 4 2 Laboratory Tests 09/06/18 05:25: White Blood Count 9.0, Red Blood Count 4.00L, Hemoglobin 12.1L, Hematocrit 36.2L , Mean Corpuscular Volume 90, Mean Corpuscular Hemoglobin 30.2, Mean Corpuscular Hemoglobin Concent 33.4, Red Cell Distribution Width 13.6, Platelet Count 204, Mean Platelet Volume 8.1, Neutrophils (%) (Auto) 67.4, Lymphocytes (% ) (Auto) 12.2L, Monocytes (%) (Auto) 18.1H, Eosinophils (%) (Auto) 1.1, Basophils (%) (Auto) 1.2, Sodium Level 133L, Potassium Level 3.4L, Chloride Level 96L, Carbon Dioxide Level 26, Anion Gap 12, Blood Urea Nitrogen 5L, Creatinine 0.7, Estimat Glomerular Filtration Rate > 60, Glucose Level 127H, Calcium Level 9.3, Phosphorus Level 2.3L, Magnesium Level 2.2, Total Bilirubin 3.9H, Direct Bilirubin 3.3H, Gamma Glutamyl Transpeptidase 5207H, Aspartate Amino Transf (AST/SGOT) 103H, Alanine Aminotransferase (ALT/SGPT) 59, Alkaline Phosphatase 226H, Total Protein 8.1, Albumin 3.1L, Globulin 5.0, Albumin/ Globulin Ratio 0.6L, Amylase Level 558*H, Lipase > 2000H Height (Feet): 5 Height (Inches): 8.00 Weight (Pounds): 173 Cardiovascular: normal rate Respiratory/Chest: lungs clear Bessy Mccormick MD Sep 06, 2018 19:51
--- NOTE | 2018-09-06 19:56 | Cardiology Progress Note ---
Assessment/Plan Assessment/Plan 1. Sinus tachycardia, continue hydration and pain control. 2. Alcoholic hepatitis with associated thrombocytopenia. 3. Acute kidney injury, resolved, continue hydration. 4. Hypomagnesemia, Mg level at 2.2. 5. Hypokalemia, replace K and keep >4.0. Subjective Subjective Sinus tachycardia at rate of 117. Objective Last 24 Hour Vital Signs Date Time Temp Pulse Resp B/P (MAP) Pulse Ox O2 Delivery O2 Flow Rate FiO2 09/06/18 16:00 117 09/06/18 16:00 98.6 94 18 117/83 (94) 87 09/06/18 12:00 98.9 93 18 116/80 (92) 99 09/06/18 12:00 98 09/06/18 09:00 Room Air 09/06/18 08:00 98.4 118 18 123/83 (96) 98 09/06/18 08:00 121 09/06/18 04:00 80 09/06/18 04:00 97.9 61 18 122/80 (94) 96 09/06/18 00:00 81 09/06/18 00:00 97.7 76 19 119/81 (94) 97 09/05/18 21:00 Room Air 09/05/18 20:00 98.2 66 18 116/79 (91) 98 09/05/18 20:00 88 Intake and Output 09/05/18 09/06/18 19:00 07:00 Intake Total 740 ml Output Total 900 ml Balance -160 ml Intake Oral 740 ml Output Urine Total 900 ml # Voids 4 2 2D Echo: LVEF 65%, RVSP 12 mmHg Laboratory Tests Test 09/06/18 05:25 White Blood Count 9.0 K/UL (4.8-10.8) Red Blood Count 4.00 M/UL (4.70-6.10) L Hemoglobin 12.1 G/DL (14.2-18.0) L Hematocrit 36.2 % (42.0-52.0) L Mean Corpuscular Volume 90 FL (80-99) Mean Corpuscular Hemoglobin 30.2 PG (27.0-31.0) Mean Corpuscular Hemoglobin Concent 33.4 G/DL (32.0-36.0) Red Cell Distribution Width 13.6 % (11.6-14.8) Platelet Count 204 K/UL (150-450) Mean Platelet Volume 8.1 FL (6.5-10.1) Neutrophils (%) (Auto) 67.4 % (45.0-75.0) Lymphocytes (%) (Auto) 12.2 % (20.0-45.0) L Monocytes (%) (Auto) 18.1 % (1.0-10.0) H Eosinophils (%) (Auto) 1.1 % (0.0-3.0) Basophils (%) (Auto) 1.2 % (0.0-2.0) Sodium Level 133 MMOL/L (136-145) L Potassium Level 3.4 MMOL/L (3.5-5.1) L Chloride Level 96 MMOL/L (98-107) L Carbon Dioxide Level 26 MMOL/L (21-32) Anion Gap 12 mmol/L (5-15) Blood Urea Nitrogen 5 mg/dL (7-18) L Creatinine 0.7 MG/DL (0.55-1.30) Estimat Glomerular Filtration Rate > 60 mL/min (>60) Glucose Level 127 MG/DL (74-106) H Calcium Level 9.3 MG/DL (8.5-10.1) Phosphorus Level 2.3 MG/DL (2.5-4.9) L Magnesium Level 2.2 MG/DL (1.8-2.4) Total Bilirubin 3.9 MG/DL (0.2-1.0) H Direct Bilirubin 3.3 MG/DL (0.0-0.3) H Gamma Glutamyl Transpeptidase 5207 U/L (5-85) H Aspartate Amino Transf (AST/SGOT) 103 U/L (15-37) H Alanine Aminotransferase (ALT/SGPT) 59 U/L (12-78) Alkaline Phosphatase 226 U/L (46-116) H Total Protein 8.1 G/DL (6.4-8.2) Albumin 3.1 G/DL (3.4-5.0) L Globulin 5.0 g/dL Albumin/Globulin Ratio 0.6 (1.0-2.7) L Amylase Level 558 U/L (25-115) *H Lipase > 2000 U/L (73-393) H Objective HEENT: Atraumatic and normocephalic. Anicteric. Pupils are equal, round, and reactive to light and accommodation. Extraocular muscles intact. NECK: JVP less than 5 cm. No carotid bruit. Carotid upstrokes 2+ bilaterally. CARDIOVASCULAR: Normal S1 and S2. Regular rate and rhythm. Tachycardic. No murmurs, gallops, or rubs. PMI is at fourth intercostal space in the midclavicular line. LUNGS: Clear to auscultation bilaterally. ABDOMEN: Slightly firm. Mild epigastric tenderness. Diminished bowel sounds. EXTREMITIES: No evidence of edema, clubbing, or cyanosis. Bassem Mora MD Sep 06, 2018 19:56
[2018-09-06 20:00] VITALS: BP 115/80
--- NOTE | 2018-09-06 23:51 | General Progress Note ---
Assessment/Plan Problem List: (1) Alcohol dependence ICD Codes: F10.20 - Alcohol dependence, uncomplicated SNOMED: 79659005 Qualifiers: Qualified Codes: F10.288 - Alcohol dependence with other alcohol-induced disorder Assessment/Plan valium prozac Subjective Neurologic/Psychiatric: Reports: anxiety, depressed, emotional problems Allergies: Coded Allergies: No Known Allergies (Unverified , 04/26/18) Objective Last 24 Hour Vital Signs Date Time Temp Pulse Resp B/P (MAP) Pulse Ox O2 Delivery O2 Flow Rate FiO2 09/06/18 23:03 Room Air 09/06/18 20:00 95 09/06/18 20:00 98.4 104 20 115/80 (92) 98 09/06/18 16:00 117 09/06/18 16:00 98.6 94 18 117/83 (94) 87 09/06/18 12:00 98.9 93 18 116/80 (92) 99 09/06/18 12:00 98 09/06/18 09:00 Room Air 09/06/18 08:00 98.4 118 18 123/83 (96) 98 09/06/18 08:00 121 09/06/18 04:00 80 09/06/18 04:00 97.9 61 18 122/80 (94) 96 09/06/18 00:00 81 09/06/18 00:00 97.7 76 19 119/81 (94) 97 Intake and Output 09/05/18 09/06/18 19:00 07:00 Intake Total 740 ml Output Total 900 ml Balance -160 ml Intake Oral 740 ml Output Urine Total 900 ml # Voids 4 2 Laboratory Tests 09/06/18 05:25: White Blood Count 9.0, Red Blood Count 4.00L, Hemoglobin 12.1L, Hematocrit 36.2L , Mean Corpuscular Volume 90, Mean Corpuscular Hemoglobin 30.2, Mean Corpuscular Hemoglobin Concent 33.4, Red Cell Distribution Width 13.6, Platelet Count 204, Mean Platelet Volume 8.1, Neutrophils (%) (Auto) 67.4, Lymphocytes (% ) (Auto) 12.2L, Monocytes (%) (Auto) 18.1H, Eosinophils (%) (Auto) 1.1, Basophils (%) (Auto) 1.2, Sodium Level 133L, Potassium Level 3.4L, Chloride Level 96L, Carbon Dioxide Level 26, Anion Gap 12, Blood Urea Nitrogen 5L, Creatinine 0.7, Estimat Glomerular Filtration Rate > 60, Glucose Level 127H, Calcium Level 9.3, Phosphorus Level 2.3L, Magnesium Level 2.2, Total Bilirubin 3.9H, Direct Bilirubin 3.3H, Gamma Glutamyl Transpeptidase 5207H, Aspartate Amino Transf (AST/SGOT) 103H, Alanine Aminotransferase (ALT/SGPT) 59, Alkaline Phosphatase 226H, Total Protein 8.1, Albumin 3.1L, Globulin 5.0, Albumin/ Globulin Ratio 0.6L, Amylase Level 558*H, Lipase > 2000H Height (Feet): 5 Height (Inches): 8.00 Weight (Pounds): 173 General Appearance: alert, moderate distress Neurologic: oriented x 3, responsive, depressed affect Reno Lozano MD Sep 06, 2018 23:51
[2018-09-07] VITALS: BP 125/77
[2018-09-07 04:00] VITALS: BP 118/75
[2018-09-07 07:54] LABS: BASOPHILS % (AUTO) 1.6 % (0.0-2.0); EOSINOPHILS % (AUTO) 1.6 % (0.0-3.0); HEMATOCRIT 35.8 % (42.0-52.0); HEMOGLOBIN 12.2 G/DL (14.2-18.0); LYMPHOCYTES % (AUTO) 16.7 % (20.0-45.0); MEAN CORPUSCULAR VOLUME 92 FL (80-99); MONOCYTES % (AUTO) 19.1 % (1.0-10.0); PLATELET COUNT 255 K/UL (150-450); RED CELL DISTRIBUTION WIDTH 13.5 % (11.6-14.8); WHITE BLOOD COUNT 10.4 K/UL (4.8-10.8)
[2018-09-07 08:00] VITALS: BP 115/80
[2018-09-07 08:30] LABS: PHOSPHORUS 2.4 MG/DL (2.5-4.9)
[2018-09-07] MEDS: Pancrease Cap ORAL SCH ×3 (08:31→18:07)
[2018-09-07] MEDS: Docusate Sod/Senna tab ORAL SCH ×2 (08:31→18:07)
[2018-09-07] MEDS: Thiamine 100mg tab ORAL SCH (08:31)
[2018-09-07 08:32] LABS: ALANINE AMINOTRANSFERASE 61 U/L (12-78); ALBUMIN 3.2 G/DL (3.4-5.0); ALBUMIN/GLOBULIN RATIO 0.6 (1.0-2.7); ALKALINE PHOSPHATASE 258 U/L (46-116); AMYLASE 477 U/L (25-115); ANION GAP 11 mmol/L (5-15); ASPARTATE AMINO TRANSFERASE 106 U/L (15-37); BILIRUBIN,TOTAL 3.5 MG/DL (0.2-1.0); BLOOD UREA NITROGEN 7 mg/dL (7-18); CALCIUM 9.6 MG/DL (8.5-10.1); CARBON DIOXIDE 26 MMOL/L (21-32); CHLORIDE 97 MMOL/L (98-107); CHOLESTEROL 209 MG/DL (< 200); CREATININE 0.8 MG/DL (0.55-1.30); HDL CHOLESTEROL 18 MG/DL (40-60); POTASSIUM 3.8 MMOL/L (3.5-5.1); SODIUM 133 MMOL/L (136-145); TRIGLYCERIDES 208 MG/DL (30-150)
[2018-09-07 08:33] LABS: BILIRUBIN,DIRECT 2.9 MG/DL (0.0-0.3)
--- NOTE | 2018-09-07 08:50 | General Progress Note ---
Assessment/Plan Assessment/Plan (1) Abdominal pain (2) Pancreatitis Patient will be continued on [place] and Dilaudid. D/w Dr. Hammer and he concurred. Subjective Date patient seen: Sep 07, 2018 Time patient seen: 07:30 - am Constitutional: Reports: no symptoms HEENT: Reports: no symptoms Cardiovascular: Reports: no symptoms Respiratory: Reports: no symptoms Gastrointestinal/Abdominal: Reports: no symptoms Genitourinary: Reports: no symptoms Neurologic/Psychiatric: Reports: no symptoms Endocrine: Reports: no symptoms Hematologic/Lymphatic: Reports: no symptoms Allergies: Coded Allergies: No Known Allergies (Unverified , 04/26/18) Subjective Patient shows no signs of pain or distress. He c/o no pain at this time. 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 Objective Last 24 Hour Vital Signs Date Time Temp Pulse Resp B/P (MAP) Pulse Ox O2 Delivery O2 Flow Rate FiO2 09/07/18 08:00 98.4 97 19 115/80 (92) 98 09/07/18 04:00 79 09/07/18 04:00 98.6 104 20 118/75 (89) 98 09/07/18 00:00 97.9 90 20 125/77 (93) 98 09/07/18 00:00 91 09/06/18 23:03 Room Air 09/06/18 20:00 95 09/06/18 20:00 98.4 104 20 115/80 (92) 98 09/06/18 16:00 117 09/06/18 16:00 98.6 94 18 117/83 (94) 87 09/06/18 12:00 98.9 93 18 116/80 (92) 99 09/06/18 12:00 98 09/06/18 09:00 Room Air Intake and Output 09/06/18 09/07/18 18:59 06:59 Intake Total 480 ml 200 ml Balance 480 ml 200 ml Intake Oral 480 ml 200 ml # Voids 4 3 Laboratory Tests 09/07/18 06:15: White Blood Count 10.4, Red Blood Count 3.90L, Hemoglobin 12.2L, Hematocrit 35.8L, Mean Corpuscular Volume 92, Mean Corpuscular Hemoglobin 31.3H, Mean Corpuscular Hemoglobin Concent 34.0, Red Cell Distribution Width 13.5, Platelet Count 255, Mean Platelet Volume 6.9, Neutrophils (%) (Auto) 61.0, Lymphocytes (% ) (Auto) 16.7L, Monocytes (%) (Auto) 19.1H, Eosinophils (%) (Auto) 1.6, Basophils (%) (Auto) 1.6, Sodium Level 133L, Potassium Level 3.8, Chloride Level 97L, Carbon Dioxide Level 26, Anion Gap 11, Blood Urea Nitrogen 7, Creatinine 0.8, Estimat Glomerular Filtration Rate > 60, Glucose Level 128H, Calcium Level 9.6, Phosphorus Level 2.4L, Magnesium Level 1.9, Total Bilirubin 3.5H, Direct Bilirubin 2.9H, Gamma Glutamyl Transpeptidase 4880H, Aspartate Amino Transf (AST/SGOT) 106H, Alanine Aminotransferase (ALT/SGPT) 61, Alkaline Phosphatase 258H, C-Reactive Protein, Quantitative 4.4H, Total Protein 8.2, Albumin 3.2L, Globulin 5.0, Albumin/Globulin Ratio 0.6L, Triglycerides Level 208H, Cholesterol Level 209H, LDL Cholesterol 161H, HDL Cholesterol 18L, Cholesterol/HDL Ratio 11.6H, Amylase Level 477H, Lipase > 2000H Height (Feet): 5 Height (Inches): 8.00 Weight (Pounds): 173 General Appearance: no apparent distress, alert EENT: PERRL/EOMI Neck: non-tender Cardiovascular: normal rate, regular rhythm Respiratory/Chest: lungs clear, normal breath sounds Abdomen: non tender, soft Extremities: normal range of motion, non-tender Edema: no edema noted Arm (L), no edema noted Arm (R), no edema noted Leg (L), no edema noted Leg (R), no edema noted Pedal (L), no edema noted Pedal (R), no edema noted Generalized Neurologic: alert, oriented x 3 Skin: normal pigmentation David La Sep 07, 2018 08:50
--- NOTE | 2018-09-07 10:38 | GI Progress Note ---
Assessment/Plan Problems: (1) Abnormal LFTs (liver function tests) ICD Codes: R94.5 - Abnormal results of liver function studies SNOMED: 829864584 (2) Abdominal pain ICD Codes: R10.9 - Unspecified abdominal pain SNOMED: 30316959 (3) Pancreatitis ICD Codes: K85.90 - Acute pancreatitis without necrosis or infection, unspecified SNOMED: 16140369 (4) Hyponatremia ICD Codes: E87.1 - Hypo-osmolality and hyponatremia SNOMED: 77020041 (5) Dehydration ICD Codes: E86.0 - Dehydration SNOMED: 15819490 (6) Alcohol dependence ICD Codes: F10.20 - Alcohol dependence, uncomplicated SNOMED: 79135076 Qualifiers: Qualified Codes: F10.288 - Alcohol dependence with other alcohol-induced disorder Status: stable, unchanged Status Narrative Discussed with Dr. Victoria. Assessment/Plan mild transaminitis, elevated bilirubin, elevated GGT >> possible liver damage elevated lipase levels >> pancreatitis most likely due to chronic ETOH use utox negative hepatitis panel negative MRCP reviewed >> possible 1.2 cm gallbladder polyp. No evidence of biliary ductal dilatation or choledocholithiasis. Enlarged fatty liver. regular diet pain mgmt zofran prn trend LFTs, lipase fu labs extensive discussion to avoid ETOH The patient was seen and examined at bedside and all new and available data was reviewed in the patients chart. I agree with the above findings, impression and plan. (Patient seen earlier today. Signature stamp does not reflect patient encounter time.). - Luis Armando Victoria MD Subjective Gastrointestinal/Abdominal: Reports: no symptoms Objective Last 24 Hour Vital Signs Date Time Temp Pulse Resp B/P (MAP) Pulse Ox O2 Delivery O2 Flow Rate FiO2 09/07/18 09:00 Room Air 09/07/18 08:00 98.4 97 19 115/80 (92) 98 09/07/18 08:00 110 09/07/18 04:00 79 09/07/18 04:00 98.6 104 20 118/75 (89) 98 09/07/18 00:00 97.9 90 20 125/77 (93) 98 09/07/18 00:00 91 09/06/18 23:03 Room Air 09/06/18 20:00 95 09/06/18 20:00 98.4 104 20 115/80 (92) 98 09/06/18 16:00 117 09/06/18 16:00 98.6 94 18 117/83 (94) 87 09/06/18 12:00 98.9 93 18 116/80 (92) 99 09/06/18 12:00 98 Intake and Output 09/06/18 09/07/18 18:59 06:59 Intake Total 480 ml 200 ml Balance 480 ml 200 ml Intake Oral 480 ml 200 ml # Voids 4 3 Laboratory Tests Test 09/07/18 06:15 White Blood Count 10.4 K/UL (4.8-10.8) Red Blood Count 3.90 M/UL (4.70-6.10) L Hemoglobin 12.2 G/DL (14.2-18.0) L Hematocrit 35.8 % (42.0-52.0) L Mean Corpuscular Volume 92 FL (80-99) Mean Corpuscular Hemoglobin 31.3 PG (27.0-31.0) H Mean Corpuscular Hemoglobin Concent 34.0 G/DL (32.0-36.0) Red Cell Distribution Width 13.5 % (11.6-14.8) Platelet Count 255 K/UL (150-450) Mean Platelet Volume 6.9 FL (6.5-10.1) Neutrophils (%) (Auto) 61.0 % (45.0-75.0) Lymphocytes (%) (Auto) 16.7 % (20.0-45.0) L Monocytes (%) (Auto) 19.1 % (1.0-10.0) H Eosinophils (%) (Auto) 1.6 % (0.0-3.0) Basophils (%) (Auto) 1.6 % (0.0-2.0) Sodium Level 133 MMOL/L (136-145) L Potassium Level 3.8 MMOL/L (3.5-5.1) Chloride Level 97 MMOL/L (98-107) L Carbon Dioxide Level 26 MMOL/L (21-32) Anion Gap 11 mmol/L (5-15) Blood Urea Nitrogen 7 mg/dL (7-18) Creatinine 0.8 MG/DL (0.55-1.30) Estimat Glomerular Filtration Rate > 60 mL/min (>60) Glucose Level 128 MG/DL (74-106) H Calcium Level 9.6 MG/DL (8.5-10.1) Phosphorus Level 2.4 MG/DL (2.5-4.9) L Magnesium Level 1.9 MG/DL (1.8-2.4) Total Bilirubin 3.5 MG/DL (0.2-1.0) H Direct Bilirubin 2.9 MG/DL (0.0-0.3) H Gamma Glutamyl Transpeptidase 4880 U/L (5-85) H Aspartate Amino Transf (AST/SGOT) 106 U/L (15-37) H Alanine Aminotransferase (ALT/SGPT) 61 U/L (12-78) Alkaline Phosphatase 258 U/L (46-116) H C-Reactive Protein, Quantitative 4.4 mg/dL (0.00-0.90) H Total Protein 8.2 G/DL (6.4-8.2) Albumin 3.2 G/DL (3.4-5.0) L Globulin 5.0 g/dL Albumin/Globulin Ratio 0.6 (1.0-2.7) L Triglycerides Level 208 MG/DL (30-150) H Cholesterol Level 209 MG/DL (< 200) H LDL Cholesterol 161 mg/dL (<100) H HDL Cholesterol 18 MG/DL (40-60) L Cholesterol/HDL Ratio 11.6 (3.3-4.4) H Amylase Level 477 U/L (25-115) H Lipase > 2000 U/L (73-393) H Height (Feet): 5 Height (Inches): 8.00 Weight (Pounds): 173 General Appearance: WD/WN, no apparent distress, alert Cardiovascular: normal rate Respiratory/Chest: normal breath sounds, no respiratory distress Abdominal Exam: normal bowel sounds, non tender, soft Extremities: normal range of motion, non-tender Juliette Diop NP Sep 07, 2018 10:38
--- NOTE | 2018-09-07 11:21 | Nephrology Progress Note ---
Assessment/Plan Problem List: (1) Pancreatitis (2) Abnormal LFTs (liver function tests) (3) Abdominal pain (4) Alcohol dependence (5) Hyponatremia Assessment tolerating po Pancreatitis high Lipase Abnormal LFTs Hyponatremia Dehydration I Plan DC IV Fluids- K PO Phos and Mag supplement as needed Protonix low fat diet Pancrease Monitor lytes continue rest Subjective ROS Limited/Unobtainable: No Objective Objective Last 24 Hour Vital Signs Date Time Temp Pulse Resp B/P (MAP) Pulse Ox O2 Delivery O2 Flow Rate FiO2 09/07/18 09:00 Room Air 09/07/18 08:00 98.4 97 19 115/80 (92) 98 09/07/18 08:00 110 09/07/18 04:00 79 09/07/18 04:00 98.6 104 20 118/75 (89) 98 09/07/18 00:00 97.9 90 20 125/77 (93) 98 09/07/18 00:00 91 09/06/18 23:03 Room Air 09/06/18 20:00 95 09/06/18 20:00 98.4 104 20 115/80 (92) 98 09/06/18 16:00 117 09/06/18 16:00 98.6 94 18 117/83 (94) 87 09/06/18 12:00 98.9 93 18 116/80 (92) 99 09/06/18 12:00 98 Intake and Output 09/06/18 09/07/18 19:00 07:00 Intake Total 480 ml 200 ml Balance 480 ml 200 ml Intake Oral 480 ml 200 ml # Voids 4 3 Laboratory Tests 09/07/18 06:15: White Blood Count 10.4, Red Blood Count 3.90L, Hemoglobin 12.2L, Hematocrit 35.8L, Mean Corpuscular Volume 92, Mean Corpuscular Hemoglobin 31.3H, Mean Corpuscular Hemoglobin Concent 34.0, Red Cell Distribution Width 13.5, Platelet Count 255, Mean Platelet Volume 6.9, Neutrophils (%) (Auto) 61.0, Lymphocytes (% ) (Auto) 16.7L, Monocytes (%) (Auto) 19.1H, Eosinophils (%) (Auto) 1.6, Basophils (%) (Auto) 1.6, Sodium Level 133L, Potassium Level 3.8, Chloride Level 97L, Carbon Dioxide Level 26, Anion Gap 11, Blood Urea Nitrogen 7, Creatinine 0.8, Estimat Glomerular Filtration Rate > 60, Glucose Level 128H, Calcium Level 9.6, Phosphorus Level 2.4L, Magnesium Level 1.9, Total Bilirubin 3.5H, Direct Bilirubin 2.9H, Gamma Glutamyl Transpeptidase 4880H, Aspartate Amino Transf (AST/SGOT) 106H, Alanine Aminotransferase (ALT/SGPT) 61, Alkaline Phosphatase 258H, C-Reactive Protein, Quantitative 4.4H, Total Protein 8.2, Albumin 3.2L, Globulin 5.0, Albumin/Globulin Ratio 0.6L, Triglycerides Level 208H, Cholesterol Level 209H, LDL Cholesterol 161H, HDL Cholesterol 18L, Cholesterol/HDL Ratio 11.6H, Amylase Level 477H, Lipase > 2000H Height (Feet): 5 Height (Inches): 8.00 Weight (Pounds): 173 General Appearance: no apparent distress Objective no change Deion Kendrick MD Sep 07, 2018 11:21
--- NOTE | 2018-09-07 11:24 | General Progress Note ---
Assessment/Plan Problem List: (1) Alcohol dependence ICD Codes: F10.20 - Alcohol dependence, uncomplicated SNOMED: [id number] Qualifiers: Qualified Codes: F10.288 - Alcohol dependence with other alcohol-induced disorder Status: stable, progressing Assessment/Plan dc valium cont prozac cont remeron left a script in chart Subjective Date patient seen: Sep 07, 2018 Neurologic/Psychiatric: Reports: anxiety, depressed, emotional problems Allergies: Coded Allergies: No Known Allergies (Unverified , 04/26/18) Subjective the pt was motivated to not drink after discharge and asked for script Objective Last 24 Hour Vital Signs Date Time Temp Pulse Resp B/P (MAP) Pulse Ox O2 Delivery O2 Flow Rate FiO2 09/07/18 09:00 Room Air 09/07/18 08:00 98.4 97 19 115/80 (92) 98 09/07/18 08:00 110 09/07/18 04:00 79 09/07/18 04:00 98.6 104 20 118/75 (89) 98 09/07/18 00:00 97.9 90 20 125/77 (93) 98 09/07/18 00:00 91 09/06/18 23:03 Room Air 09/06/18 20:00 95 09/06/18 20:00 98.4 104 20 115/80 (92) 98 09/06/18 16:00 117 09/06/18 16:00 98.6 94 18 117/83 (94) 87 09/06/18 12:00 98.9 93 18 116/80 (92) 99 09/06/18 12:00 98 Intake and Output 09/06/18 09/07/18 19:00 07:00 Intake Total 480 ml 200 ml Balance 480 ml 200 ml Intake Oral 480 ml 200 ml # Voids 4 3 Laboratory Tests 09/07/18 06:15: White Blood Count 10.4, Red Blood Count 3.90L, Hemoglobin 12.2L, Hematocrit 35.8L, Mean Corpuscular Volume 92, Mean Corpuscular Hemoglobin 31.3H, Mean Corpuscular Hemoglobin Concent 34.0, Red Cell Distribution Width 13.5, Platelet Count 255, Mean Platelet Volume 6.9, Neutrophils (%) (Auto) 61.0, Lymphocytes (% ) (Auto) 16.7L, Monocytes (%) (Auto) 19.1H, Eosinophils (%) (Auto) 1.6, Basophils (%) (Auto) 1.6, Sodium Level 133L, Potassium Level 3.8, Chloride Level 97L, Carbon Dioxide Level 26, Anion Gap 11, Blood Urea Nitrogen 7, Creatinine 0.8, Estimat Glomerular Filtration Rate > 60, Glucose Level 128H, Calcium Level 9.6, Phosphorus Level 2.4L, Magnesium Level 1.9, Total Bilirubin 3.5H, Direct Bilirubin 2.9H, Gamma Glutamyl Transpeptidase 4880H, Aspartate Amino Transf (AST/SGOT) 106H, Alanine Aminotransferase (ALT/SGPT) 61, Alkaline Phosphatase 258H, C-Reactive Protein, Quantitative 4.4H, Total Protein 8.2, Albumin 3.2L, Globulin 5.0, Albumin/Globulin Ratio 0.6L, Triglycerides Level 208H, Cholesterol Level 209H, LDL Cholesterol 161H, HDL Cholesterol 18L, Cholesterol/HDL Ratio 11.6H, Amylase Level 477H, Lipase > 2000H Height (Feet): 5 Height (Inches): 8.00 Weight (Pounds): 173 General Appearance: WD/WN, no apparent distress, alert Neurologic: oriented x 3, responsive, depressed affect Reno Lozano MD Sep 07, 2018 11:24
--- NOTE | 2018-09-07 11:59 | General Progress Note ---
Assessment/Plan Status: stable Assessment/Plan # Thrombocytopenia - likely related to live etiology and/or reactive process --> Plt count has improved --> Peripheral smear ordered to evaluate for blasts/schistocytes and is negative --> Hep panel and HIV are both negative --> US abd shows enlarged fatty liver, --> CT abd shows fatty liver. --> Abx and other meds have been reviewed. --> does have pancreatitis, eval for potential liver disease # Leukocytosis. Likely related to underlying infection versus reactive process. Now improved, has received course of antibiotics. --> WBC has improved/resolved --> Blood and urine cultures reviewed, micro pending --> Cont to monitor for improvement --> Imaging has been reviewed, shows no acute process --> Has been started on abx, empiric treatment # Pancreatitis with abdominal pain. GI is following, appreciate recs. --> Pt is NPO and on IVF --> GGT --> Zofran prn --> MRCP reviewed >> possible 1.2 cm gallbladder polyp. No evidence of biliary ductal dilatation or choledocholithiasis. Enlarged fatty liver. # Transaminitis -- recs per GI eval GREATLY APPRECIATE CONSULTATION. Subjective Date patient seen: Sep 07, 2018 Allergies: Coded Allergies: No Known Allergies (Unverified , 04/26/18) All Systems: reviewed and negative except above Subjective Pt resting in bed, in stable condition. No acute events. Objective Last 24 Hour Vital Signs Date Time Temp Pulse Resp B/P (MAP) Pulse Ox O2 Delivery O2 Flow Rate FiO2 09/07/18 09:00 Room Air 09/07/18 08:00 98.4 97 19 115/80 (92) 98 09/07/18 08:00 110 09/07/18 04:00 79 09/07/18 04:00 98.6 104 20 118/75 (89) 98 09/07/18 00:00 97.9 90 20 125/77 (93) 98 09/07/18 00:00 91 09/06/18 23:03 Room Air 09/06/18 20:00 95 09/06/18 20:00 98.4 104 20 115/80 (92) 98 09/06/18 16:00 117 09/06/18 16:00 98.6 94 18 117/83 (94) 87 09/06/18 12:00 98.9 93 18 116/80 (92) 99 09/06/18 12:00 98 Intake and Output 09/06/18 09/07/18 19:00 07:00 Intake Total 480 ml 200 ml Balance 480 ml 200 ml Intake Oral 480 ml 200 ml # Voids 4 3 Laboratory Tests 09/07/18 06:15: White Blood Count 10.4, Red Blood Count 3.90L, Hemoglobin 12.2L, Hematocrit 35.8L, Mean Corpuscular Volume 92, Mean Corpuscular Hemoglobin 31.3H, Mean Corpuscular Hemoglobin Concent 34.0, Red Cell Distribution Width 13.5, Platelet Count 255, Mean Platelet Volume 6.9, Neutrophils (%) (Auto) 61.0, Lymphocytes (% ) (Auto) 16.7L, Monocytes (%) (Auto) 19.1H, Eosinophils (%) (Auto) 1.6, Basophils (%) (Auto) 1.6, Sodium Level 133L, Potassium Level 3.8, Chloride Level 97L, Carbon Dioxide Level 26, Anion Gap 11, Blood Urea Nitrogen 7, Creatinine 0.8, Estimat Glomerular Filtration Rate > 60, Glucose Level 128H, Calcium Level 9.6, Phosphorus Level 2.4L, Magnesium Level 1.9, Total Bilirubin 3.5H, Direct Bilirubin 2.9H, Gamma Glutamyl Transpeptidase 4880H, Aspartate Amino Transf (AST/SGOT) 106H, Alanine Aminotransferase (ALT/SGPT) 61, Alkaline Phosphatase 258H, C-Reactive Protein, Quantitative 4.4H, Total Protein 8.2, Albumin 3.2L, Globulin 5.0, Albumin/Globulin Ratio 0.6L, Triglycerides Level 208H, Cholesterol Level 209H, LDL Cholesterol 161H, HDL Cholesterol 18L, Cholesterol/HDL Ratio 11.6H, Amylase Level 477H, Lipase > 2000H Height (Feet): 5 Height (Inches): 8.00 Weight (Pounds): 173 Objective PHYSICAL EXAMINATION: Vitals: Have been reviewed GENERAL: No acute distress HEENT: Head is normocephalic and atraumatic. Eyes, pupils are equal, round, and reactive to light. Mouth is clear. NECK: There is no palpable thyromegaly or adenopathy. CHEST: Clear to auscultation and percussion. HEART: Tachycardic, but there is no gallop or murmur. ABDOMEN: Soft and flat mild tenderness mainly on the left side of the abdomen, but there is no guarding or rebound tenderness. Bowel sounds are present. GENITAL: Deferred. EXTREMITIES: Within normal limits. Pawel Ferrera MD Sep 07, 2018 11:59
[2018-09-07 12:00] VITALS: BP 117/72
--- NOTE | 2018-09-07 12:45 | Infectious Diseases Prog Note ---
Assessment/Plan Assessment/Plan A: 1. Acute pancreatitis, maybe secondary to alcohol abuse. 2. Hyponatremia. 3. Acute renal failure, resolved 4. Fatty liver. 5. Hiatal hernia. 6. Hypokalemia 7. Gallbladder polyp P Observe off antibiotic Subjective ROS Limited/Unobtainable: No HEENT: Reports: no symptoms Respiratory: Reports: no symptoms Cardiovascular: Reports: no symptoms Gastrointestinal/Abdominal: Reports: no symptoms Genitourinary: Reports: no symptoms Allergies: Coded Allergies: No Known Allergies (Unverified , 04/26/18) Objective Vital Signs Last 24 Hour Vital Signs Date Time Temp Pulse Resp B/P (MAP) Pulse Ox O2 Delivery O2 Flow Rate FiO2 09/07/18 09:00 Room Air 09/07/18 08:00 98.4 97 19 115/80 (92) 98 09/07/18 08:00 110 09/07/18 04:00 79 09/07/18 04:00 98.6 104 20 118/75 (89) 98 09/07/18 00:00 97.9 90 20 125/77 (93) 98 09/07/18 00:00 91 09/06/18 23:03 Room Air 09/06/18 20:00 95 09/06/18 20:00 98.4 104 20 115/80 (92) 98 09/06/18 16:00 117 09/06/18 16:00 98.6 94 18 117/83 (94) 87 Height (Feet): 5 Height (Inches): 8.00 Weight (Pounds): 173 General Appearance: no acute distress HEENT: mucous membranes moist Respiratory/Chest: lungs clear Cardiovascular: normal rate Abdomen: soft, non tender Extremities: no edema Neurologic/Psychiatric: alert, oriented x 3, responsive Laboratory Tests Test 09/07/18 06:15 White Blood Count 10.4 K/UL (4.8-10.8) Red Blood Count 3.90 M/UL (4.70-6.10) L Hemoglobin 12.2 G/DL (14.2-18.0) L Hematocrit 35.8 % (42.0-52.0) L Mean Corpuscular Volume 92 FL (80-99) Mean Corpuscular Hemoglobin 31.3 PG (27.0-31.0) H Mean Corpuscular Hemoglobin Concent 34.0 G/DL (32.0-36.0) Red Cell Distribution Width 13.5 % (11.6-14.8) Platelet Count 255 K/UL (150-450) Mean Platelet Volume 6.9 FL (6.5-10.1) Neutrophils (%) (Auto) 61.0 % (45.0-75.0) Lymphocytes (%) (Auto) 16.7 % (20.0-45.0) L Monocytes (%) (Auto) 19.1 % (1.0-10.0) H Eosinophils (%) (Auto) 1.6 % (0.0-3.0) Basophils (%) (Auto) 1.6 % (0.0-2.0) Sodium Level 133 MMOL/L (136-145) L Potassium Level 3.8 MMOL/L (3.5-5.1) Chloride Level 97 MMOL/L (98-107) L Carbon Dioxide Level 26 MMOL/L (21-32) Anion Gap 11 mmol/L (5-15) Blood Urea Nitrogen 7 mg/dL (7-18) Creatinine 0.8 MG/DL (0.55-1.30) Estimat Glomerular Filtration Rate > 60 mL/min (>60) Glucose Level 128 MG/DL (74-106) H Calcium Level 9.6 MG/DL (8.5-10.1) Phosphorus Level 2.4 MG/DL (2.5-4.9) L Magnesium Level 1.9 MG/DL (1.8-2.4) Total Bilirubin 3.5 MG/DL (0.2-1.0) H Direct Bilirubin 2.9 MG/DL (0.0-0.3) H Gamma Glutamyl Transpeptidase 4880 U/L (5-85) H Aspartate Amino Transf (AST/SGOT) 106 U/L (15-37) H Alanine Aminotransferase (ALT/SGPT) 61 U/L (12-78) Alkaline Phosphatase 258 U/L (46-116) H C-Reactive Protein, Quantitative 4.4 mg/dL (0.00-0.90) H Total Protein 8.2 G/DL (6.4-8.2) Albumin 3.2 G/DL (3.4-5.0) L Globulin 5.0 g/dL Albumin/Globulin Ratio 0.6 (1.0-2.7) L Triglycerides Level 208 MG/DL (30-150) H Cholesterol Level 209 MG/DL (< 200) H LDL Cholesterol 161 mg/dL (<100) H HDL Cholesterol 18 MG/DL (40-60) L Cholesterol/HDL Ratio 11.6 (3.3-4.4) H Amylase Level 477 U/L (25-115) H Lipase > 2000 U/L (73-393) H Current Medications Medications (Trade) Dose Ordered Sig/Solis Route PRN Reason Start Time Stop Time Status Last Admin Dose Admin Acetaminophen/ Hydrocodone Bitart ([place] 5/325) 1 tab Q4H PRN ORAL Moderate Pain (Pain Scale 4-6) 09/03/18 09:45 09/10/18 09:44 Amylase/Lipase/ Protease (Pancrease) 2 ea THREE TIMES A DAY ORAL 09/06/18 13:00 10/06/18 12:59 09/07/18 08:31 Diazepam (Valium) 10 mg EVERY 2 HOURS PRN ORAL For Anxiety 09/01/18 23:30 09/08/18 23:29 09/05/18 01:23 Fluoxetine HCl (PROzac) 20 mg DAILY ORAL 09/02/18 12:34 10/02/18 12:33 09/07/18 08:31 Folic Acid (Folate) 1 mg DAILY ORAL 09/02/18 09:00 10/02/18 08:59 09/07/18 08:31 Iopamidol (Isovue-300 100ml) 100 ml NOW PRN INJ Radiology Procedure 09/01/18 19:45 Mirtazapine (Remeron) 7.5 mg BEDTIME ORAL 09/02/18 21:00 10/02/18 20:59 09/06/18 20:15 Ondansetron HCl (Zofran) 4 mg Q6H PRN IVP Nausea & Vomiting 09/02/18 01:15 10/02/18 01:14 09/02/18 08:39 Pantoprazole (Protonix) 40 mg EVERY 12 HOURS ORAL 09/03/18 21:00 10/03/18 20:59 09/07/18 08:31 Potassium Chloride (K-Dur) 40 meq BID ORAL 09/06/18 18:00 10/05/18 08:59 09/07/18 08:31 Senna/Docusate Sodium (Summer-Colace) 1 tab TWICE A DAY ORAL 09/04/18 09:00 10/04/18 08:59 09/07/18 08:31 Thiamine HCl (Vitamin B1) 100 mg DAILY ORAL 09/02/18 09:00 10/02/18 08:59 09/07/18 08:31 Anam Corona MD Sep 07, 2018 12:45
--- NOTE | 2018-09-07 15:38 | GI Progress Note ---
Assessment/Plan Problems: (1) Abnormal LFTs (liver function tests) ICD Codes: R94.5 - Abnormal results of liver function studies SNOMED: 062147875 (2) Abdominal pain ICD Codes: R10.9 - Unspecified abdominal pain SNOMED: 61093734 (3) Pancreatitis ICD Codes: K85.90 - Acute pancreatitis without necrosis or infection, unspecified SNOMED: 95388343 (4) Hyponatremia ICD Codes: E87.1 - Hypo-osmolality and hyponatremia SNOMED: 48851075 (5) Dehydration ICD Codes: E86.0 - Dehydration SNOMED: 86724972 (6) Alcohol dependence ICD Codes: F10.20 - Alcohol dependence, uncomplicated SNOMED: 43217384 Qualifiers: Qualified Codes: F10.288 - Alcohol dependence with other alcohol-induced disorder Status: stable, unchanged Status Narrative Discussed with Dr. Victoria. Assessment/Plan mild transaminitis, elevated bilirubin, elevated GGT >> possible liver damage elevated lipase levels >> pancreatitis most likely due to chronic ETOH use utox negative hepatitis panel negative MRCP reviewed >> possible 1.2 cm gallbladder polyp. No evidence of biliary ductal dilatation or choledocholithiasis. Enlarged fatty liver. >> fu surgical recs okay for DC per GI standpoint, follow up with us as outpatient regular diet pain mgmt zofran prn trend LFTs, lipase fu labs extensive discussion to avoid ETOH The patient was seen and examined at bedside and all new and available data was reviewed in the patients chart. I agree with the above findings, impression and plan. (Patient seen earlier today. Signature stamp does not reflect patient encounter time.). - Luis Armando Victoria MD Subjective Gastrointestinal/Abdominal: Reports: no symptoms Objective Last 24 Hour Vital Signs Date Time Temp Pulse Resp B/P (MAP) Pulse Ox O2 Delivery O2 Flow Rate FiO2 09/07/18 12:00 109 09/07/18 12:00 99.0 111 19 117/72 (87) 97 09/07/18 09:00 Room Air 09/07/18 08:00 98.4 97 19 115/80 (92) 98 09/07/18 08:00 110 09/07/18 04:00 79 09/07/18 04:00 98.6 104 20 118/75 (89) 98 09/07/18 00:00 97.9 90 20 125/77 (93) 98 09/07/18 00:00 91 09/06/18 23:03 Room Air 09/06/18 20:00 95 09/06/18 20:00 98.4 104 20 115/80 (92) 98 09/06/18 16:00 117 09/06/18 16:00 98.6 94 18 117/83 (94) 87 Intake and Output 09/06/18 09/07/18 19:00 07:00 Intake Total 480 ml 200 ml Balance 480 ml 200 ml Intake Oral 480 ml 200 ml # Voids 4 3 Laboratory Tests Test 09/07/18 06:15 White Blood Count 10.4 K/UL (4.8-10.8) Red Blood Count 3.90 M/UL (4.70-6.10) L Hemoglobin 12.2 G/DL (14.2-18.0) L Hematocrit 35.8 % (42.0-52.0) L Mean Corpuscular Volume 92 FL (80-99) Mean Corpuscular Hemoglobin 31.3 PG (27.0-31.0) H Mean Corpuscular Hemoglobin Concent 34.0 G/DL (32.0-36.0) Red Cell Distribution Width 13.5 % (11.6-14.8) Platelet Count 255 K/UL (150-450) Mean Platelet Volume 6.9 FL (6.5-10.1) Neutrophils (%) (Auto) 61.0 % (45.0-75.0) Lymphocytes (%) (Auto) 16.7 % (20.0-45.0) L Monocytes (%) (Auto) 19.1 % (1.0-10.0) H Eosinophils (%) (Auto) 1.6 % (0.0-3.0) Basophils (%) (Auto) 1.6 % (0.0-2.0) Sodium Level 133 MMOL/L (136-145) L Potassium Level 3.8 MMOL/L (3.5-5.1) Chloride Level 97 MMOL/L (98-107) L Carbon Dioxide Level 26 MMOL/L (21-32) Anion Gap 11 mmol/L (5-15) Blood Urea Nitrogen 7 mg/dL (7-18) Creatinine 0.8 MG/DL (0.55-1.30) Estimat Glomerular Filtration Rate > 60 mL/min (>60) Glucose Level 128 MG/DL (74-106) H Calcium Level 9.6 MG/DL (8.5-10.1) Phosphorus Level 2.4 MG/DL (2.5-4.9) L Magnesium Level 1.9 MG/DL (1.8-2.4) Total Bilirubin 3.5 MG/DL (0.2-1.0) H Direct Bilirubin 2.9 MG/DL (0.0-0.3) H Gamma Glutamyl Transpeptidase 4880 U/L (5-85) H Aspartate Amino Transf (AST/SGOT) 106 U/L (15-37) H Alanine Aminotransferase (ALT/SGPT) 61 U/L (12-78) Alkaline Phosphatase 258 U/L (46-116) H C-Reactive Protein, Quantitative 4.4 mg/dL (0.00-0.90) H Total Protein 8.2 G/DL (6.4-8.2) Albumin 3.2 G/DL (3.4-5.0) L Globulin 5.0 g/dL Albumin/Globulin Ratio 0.6 (1.0-2.7) L Triglycerides Level 208 MG/DL (30-150) H Cholesterol Level 209 MG/DL (< 200) H LDL Cholesterol 161 mg/dL (<100) H HDL Cholesterol 18 MG/DL (40-60) L Cholesterol/HDL Ratio 11.6 (3.3-4.4) H Amylase Level 477 U/L (25-115) H Lipase > 2000 U/L (73-393) H Height (Feet): 5 Height (Inches): 8.00 Weight (Pounds): 173 General Appearance: WD/WN, no apparent distress, alert Cardiovascular: normal rate Respiratory/Chest: normal breath sounds, no respiratory distress Abdominal Exam: normal bowel sounds, non tender, soft Extremities: normal range of motion, non-tender Juliette Diop NP Sep 07, 2018 15:38
[2018-09-07 16:00] VITALS: BP 134/77
--- NOTE | 2018-09-07 17:23 | General Surgery Progress Note ---
General Surgery-Progress Note Subjective Symptoms: improved, pain absent, BM Objective Last 24 Hour Vital Signs Date Time Temp Pulse Resp B/P (MAP) Pulse Ox O2 Delivery O2 Flow Rate FiO2 09/07/18 16:00 98.5 98 21 134/77 (96) 99 09/07/18 16:00 93 09/07/18 12:00 109 09/07/18 12:00 99.0 111 19 117/72 (87) 97 09/07/18 09:00 Room Air 09/07/18 08:00 98.4 97 19 115/80 (92) 98 09/07/18 08:00 110 09/07/18 04:00 79 09/07/18 04:00 98.6 104 20 118/75 (89) 98 09/07/18 00:00 97.9 90 20 125/77 (93) 98 09/07/18 00:00 91 09/06/18 23:03 Room Air 09/06/18 20:00 95 09/06/18 20:00 98.4 104 20 115/80 (92) 98 I&O Intake and Output 09/06/18 09/07/18 19:00 07:00 Intake Total 480 ml 200 ml Balance 480 ml 200 ml Intake Oral 480 ml 200 ml # Voids 4 3 Respiratory: clear Abdomen: soft, flat, non-tender, present bowel sounds Extremities: no tenderness Laboratory Tests Test 09/07/18 06:15 White Blood Count 10.4 K/UL (4.8-10.8) Red Blood Count 3.90 M/UL (4.70-6.10) L Hemoglobin 12.2 G/DL (14.2-18.0) L Hematocrit 35.8 % (42.0-52.0) L Mean Corpuscular Volume 92 FL (80-99) Mean Corpuscular Hemoglobin 31.3 PG (27.0-31.0) H Mean Corpuscular Hemoglobin Concent 34.0 G/DL (32.0-36.0) Red Cell Distribution Width 13.5 % (11.6-14.8) Platelet Count 255 K/UL (150-450) Mean Platelet Volume 6.9 FL (6.5-10.1) Neutrophils (%) (Auto) 61.0 % (45.0-75.0) Lymphocytes (%) (Auto) 16.7 % (20.0-45.0) L Monocytes (%) (Auto) 19.1 % (1.0-10.0) H Eosinophils (%) (Auto) 1.6 % (0.0-3.0) Basophils (%) (Auto) 1.6 % (0.0-2.0) Sodium Level 133 MMOL/L (136-145) L Potassium Level 3.8 MMOL/L (3.5-5.1) Chloride Level 97 MMOL/L (98-107) L Carbon Dioxide Level 26 MMOL/L (21-32) Anion Gap 11 mmol/L (5-15) Blood Urea Nitrogen 7 mg/dL (7-18) Creatinine 0.8 MG/DL (0.55-1.30) Estimat Glomerular Filtration Rate > 60 mL/min (>60) Glucose Level 128 MG/DL (74-106) H Calcium Level 9.6 MG/DL (8.5-10.1) Phosphorus Level 2.4 MG/DL (2.5-4.9) L Magnesium Level 1.9 MG/DL (1.8-2.4) Total Bilirubin 3.5 MG/DL (0.2-1.0) H Direct Bilirubin 2.9 MG/DL (0.0-0.3) H Gamma Glutamyl Transpeptidase 4880 U/L (5-85) H Aspartate Amino Transf (AST/SGOT) 106 U/L (15-37) H Alanine Aminotransferase (ALT/SGPT) 61 U/L (12-78) Alkaline Phosphatase 258 U/L (46-116) H C-Reactive Protein, Quantitative 4.4 mg/dL (0.00-0.90) H Total Protein 8.2 G/DL (6.4-8.2) Albumin 3.2 G/DL (3.4-5.0) L Globulin 5.0 g/dL Albumin/Globulin Ratio 0.6 (1.0-2.7) L Triglycerides Level 208 MG/DL (30-150) H Cholesterol Level 209 MG/DL (< 200) H LDL Cholesterol 161 mg/dL (<100) H HDL Cholesterol 18 MG/DL (40-60) L Cholesterol/HDL Ratio 11.6 (3.3-4.4) H Amylase Level 477 U/L (25-115) H Lipase > 2000 U/L (73-393) H Assessment Additional Comments pancreatitis resolved elevated amylase and lipase etiology unknown Plan Additional Comments per G-I specialist Marla Vaughn MD Sep 07, 2018 17:23
[2018-09-07 20:00] VITALS: BP 103/65
--- NOTE | 2018-09-07 20:43 | General Progress Note ---
Assessment/Plan Problem List: (1) Dehydration ICD Codes: E86.0 - Dehydration SNOMED: 37181061 (2) Pancreatitis ICD Codes: K85.90 - Acute pancreatitis without necrosis or infection, unspecified SNOMED: 41610949 (3) Abdominal pain ICD Codes: R10.9 - Unspecified abdominal pain SNOMED: 67356575 (4) Abnormal LFTs (liver function tests) ICD Codes: R94.5 - Abnormal results of liver function studies SNOMED: 100093233 (5) Alcohol dependence ICD Codes: F10.20 - Alcohol dependence, uncomplicated SNOMED: 69992197 Qualifiers: Qualified Codes: F10.288 - Alcohol dependence with other alcohol-induced disorder Status: progressing Assessment/Plan s/p fluids check labs pancreatitis is improving abdominal pain is improving Subjective ROS Limited/Unobtainable: Yes Allergies: Coded Allergies: No Known Allergies (Unverified , 04/26/18) Objective Last 24 Hour Vital Signs Date Time Temp Pulse Resp B/P (MAP) Pulse Ox O2 Delivery O2 Flow Rate FiO2 09/07/18 16:00 98.5 98 21 134/77 (96) 99 09/07/18 16:00 93 09/07/18 12:00 109 09/07/18 12:00 99.0 111 19 117/72 (87) 97 09/07/18 09:00 Room Air 09/07/18 08:00 98.4 97 19 115/80 (92) 98 09/07/18 08:00 110 09/07/18 04:00 79 09/07/18 04:00 98.6 104 20 118/75 (89) 98 09/07/18 00:00 97.9 90 20 125/77 (93) 98 09/07/18 00:00 91 09/06/18 23:03 Room Air Intake and Output 09/06/18 09/07/18 19:00 07:00 Intake Total 480 ml 200 ml Balance 480 ml 200 ml Intake Oral 480 ml 200 ml # Voids 4 3 Laboratory Tests 09/07/18 06:15: White Blood Count 10.4, Red Blood Count 3.90L, Hemoglobin 12.2L, Hematocrit 35.8L, Mean Corpuscular Volume 92, Mean Corpuscular Hemoglobin 31.3H, Mean Corpuscular Hemoglobin Concent 34.0, Red Cell Distribution Width 13.5, Platelet Count 255, Mean Platelet Volume 6.9, Neutrophils (%) (Auto) 61.0, Lymphocytes (% ) (Auto) 16.7L, Monocytes (%) (Auto) 19.1H, Eosinophils (%) (Auto) 1.6, Basophils (%) (Auto) 1.6, Sodium Level 133L, Potassium Level 3.8, Chloride Level 97L, Carbon Dioxide Level 26, Anion Gap 11, Blood Urea Nitrogen 7, Creatinine 0.8, Estimat Glomerular Filtration Rate > 60, Glucose Level 128H, Calcium Level 9.6, Phosphorus Level 2.4L, Magnesium Level 1.9, Total Bilirubin 3.5H, Direct Bilirubin 2.9H, Gamma Glutamyl Transpeptidase 4880H, Aspartate Amino Transf (AST/SGOT) 106H, Alanine Aminotransferase (ALT/SGPT) 61, Alkaline Phosphatase 258H, C-Reactive Protein, Quantitative 4.4H, Total Protein 8.2, Albumin 3.2L, Globulin 5.0, Albumin/Globulin Ratio 0.6L, Triglycerides Level 208H, Cholesterol Level 209H, LDL Cholesterol 161H, HDL Cholesterol 18L, Cholesterol/HDL Ratio 11.6H, Amylase Level 477H, Lipase > 2000H Height (Feet): 5 Height (Inches): 8.00 Weight (Pounds): 173 EENT: PERRL/EOMI Cardiovascular: normal rate Respiratory/Chest: lungs clear Abdomen: soft Bessy Mccormick MD Sep 07, 2018 20:43
--- NOTE | 2018-09-07 23:12 | Cardiology Progress Note ---
Assessment/Plan Assessment/Plan 1. Sinus tachycardia, resolved, continue hydration and pain control. 2. Alcoholic hepatitis with associated thrombocytopenia. 3. Acute kidney injury, resolved, continue hydration. 4. Hypomagnesemia, Mg level at 1.9. 5. Hypokalemia, resolved. 6. Mixed dyslipidemia likely in association with alcohol fatty liver. Subjective Subjective Sinus rhythm at the rate of 94. Objective Last 24 Hour Vital Signs Date Time Temp Pulse Resp B/P (MAP) Pulse Ox O2 Delivery O2 Flow Rate FiO2 09/07/18 21:00 Room Air 09/07/18 20:00 94 09/07/18 20:00 98.6 83 18 103/65 (78) 98 09/07/18 16:00 98.5 98 21 134/77 (96) 99 09/07/18 16:00 93 09/07/18 12:00 109 09/07/18 12:00 99.0 111 19 117/72 (87) 97 09/07/18 09:00 Room Air 09/07/18 08:00 98.4 97 19 115/80 (92) 98 09/07/18 08:00 110 09/07/18 04:00 79 09/07/18 04:00 98.6 104 20 118/75 (89) 98 09/07/18 00:00 97.9 90 20 125/77 (93) 98 09/07/18 00:00 91 Intake and Output 09/06/18 09/07/18 19:00 07:00 Intake Total 480 ml 200 ml Balance 480 ml 200 ml Intake Oral 480 ml 200 ml # Voids 4 3 2D Echo: LVEF 65%, RVSP 12 mmHg Laboratory Tests Test 09/07/18 06:15 White Blood Count 10.4 K/UL (4.8-10.8) Red Blood Count 3.90 M/UL (4.70-6.10) L Hemoglobin 12.2 G/DL (14.2-18.0) L Hematocrit 35.8 % (42.0-52.0) L Mean Corpuscular Volume 92 FL (80-99) Mean Corpuscular Hemoglobin 31.3 PG (27.0-31.0) H Mean Corpuscular Hemoglobin Concent 34.0 G/DL (32.0-36.0) Red Cell Distribution Width 13.5 % (11.6-14.8) Platelet Count 255 K/UL (150-450) Mean Platelet Volume 6.9 FL (6.5-10.1) Neutrophils (%) (Auto) 61.0 % (45.0-75.0) Lymphocytes (%) (Auto) 16.7 % (20.0-45.0) L Monocytes (%) (Auto) 19.1 % (1.0-10.0) H Eosinophils (%) (Auto) 1.6 % (0.0-3.0) Basophils (%) (Auto) 1.6 % (0.0-2.0) Sodium Level 133 MMOL/L (136-145) L Potassium Level 3.8 MMOL/L (3.5-5.1) Chloride Level 97 MMOL/L (98-107) L Carbon Dioxide Level 26 MMOL/L (21-32) Anion Gap 11 mmol/L (5-15) Blood Urea Nitrogen 7 mg/dL (7-18) Creatinine 0.8 MG/DL (0.55-1.30) Estimat Glomerular Filtration Rate > 60 mL/min (>60) Glucose Level 128 MG/DL (74-106) H Calcium Level 9.6 MG/DL (8.5-10.1) Phosphorus Level 2.4 MG/DL (2.5-4.9) L Magnesium Level 1.9 MG/DL (1.8-2.4) Total Bilirubin 3.5 MG/DL (0.2-1.0) H Direct Bilirubin 2.9 MG/DL (0.0-0.3) H Gamma Glutamyl Transpeptidase 4880 U/L (5-85) H Aspartate Amino Transf (AST/SGOT) 106 U/L (15-37) H Alanine Aminotransferase (ALT/SGPT) 61 U/L (12-78) Alkaline Phosphatase 258 U/L (46-116) H C-Reactive Protein, Quantitative 4.4 mg/dL (0.00-0.90) H Total Protein 8.2 G/DL (6.4-8.2) Albumin 3.2 G/DL (3.4-5.0) L Globulin 5.0 g/dL Albumin/Globulin Ratio 0.6 (1.0-2.7) L Triglycerides Level 208 MG/DL (30-150) H Cholesterol Level 209 MG/DL (< 200) H LDL Cholesterol 161 mg/dL (<100) H HDL Cholesterol 18 MG/DL (40-60) L Cholesterol/HDL Ratio 11.6 (3.3-4.4) H Amylase Level 477 U/L (25-115) H Lipase > 2000 U/L (73-393) H Objective HEENT: Atraumatic and normocephalic. Anicteric. Pupils are equal, round, and reactive to light and accommodation. Extraocular muscles intact. NECK: JVP less than 5 cm. No carotid bruit. Carotid upstrokes 2+ bilaterally. CARDIOVASCULAR: Normal S1 and S2. Regular rate and rhythm. Tachycardic. No murmurs, gallops, or rubs. PMI is at fourth intercostal space in the midclavicular line. LUNGS: Clear to auscultation bilaterally. ABDOMEN: Slightly firm. Mild epigastric tenderness. Diminished bowel sounds. EXTREMITIES: No evidence of edema, clubbing, or cyanosis. Bassem Mora MD Sep 07, 2018 23:12
[2018-09-08] VITALS: BP 103/65
[2018-09-08 04:00] VITALS: BP 111/68
[2018-09-08 08:00] VITALS: BP 119/80
--- NOTE | 2018-09-08 08:50 | General Progress Note ---
Assessment/Plan Assessment/Plan (1) Abdominal pain (2) Pancreatitis Patient will be continued on Pelican and Dilaudid will be discontinued. D/w Dr. Hammer and he concurred. Subjective Date patient seen: Sep 08, 2018 Time patient seen: 07:15 - am Allergies: Coded Allergies: No Known Allergies (Unverified , 04/26/18) Subjective Constitutional: Reports: no symptoms HEENT: Reports: no symptoms Cardiovascular: Reports: no symptoms Respiratory: Reports: no symptoms Gastrointestinal/Abdominal: Reports: no symptoms Genitourinary: Reports: no symptoms Neurologic/Psychiatric: Reports: no symptoms Endocrine: Reports: no symptoms Hematologic/Lymphatic: Reports: no symptoms Subjective Patient is in bed and feeling well. Has not taken any Pelican or Dilaudid in the last 24hrs. Objective Last 24 Hour Vital Signs Date Time Temp Pulse Resp B/P (MAP) Pulse Ox O2 Delivery O2 Flow Rate FiO2 09/08/18 04:00 108 09/08/18 04:00 98.9 90 20 111/68 (82) 97 09/08/18 00:00 85 09/08/18 00:00 98.5 80 18 103/65 (78) 98 09/07/18 21:00 Room Air 09/07/18 20:00 94 09/07/18 20:00 98.6 83 18 103/65 (78) 98 09/07/18 16:00 98.5 98 21 134/77 (96) 99 09/07/18 16:00 93 09/07/18 12:00 109 09/07/18 12:00 99.0 111 19 117/72 (87) 97 09/07/18 09:00 Room Air Intake and Output 09/07/18 09/08/18 18:59 06:59 Intake Total 820 ml 320 ml Balance 820 ml 320 ml Intake Oral 820 ml 320 ml # Bowel Movements 1 Height (Feet): 5 Height (Inches): 8.00 Weight (Pounds): 173 Objective General Appearance: no apparent distress, alert EENT: PERRL/EOMI Neck: non-tender Cardiovascular: normal rate, regular rhythm Respiratory/Chest: lungs clear, normal breath sounds Abdomen: non tender, soft Extremities: normal range of motion, non-tender Edema: no edema noted Arm (L), no edema noted Arm (R), no edema noted Leg (L), no edema noted Leg (R), no edema noted Pedal (L), no edema noted Pedal (R), no edema noted Generalized Neurologic: alert, oriented x 3 Skin: normal pigmentation David La Sep 08, 2018 08:50
--- NOTE | 2018-09-08 09:19 | Nephrology Progress Note ---
Assessment/Plan Problem List: (1) Pancreatitis (2) Abnormal LFTs (liver function tests) (3) Abdominal pain (4) Alcohol dependence (5) Hyponatremia Assessment tolerating po Pancreatitis high Lipase Abnormal LFTs Hyponatremia Dehydration I Plan to day's lab pending DC IV Fluids- K PO Phos and Mag supplement as needed Protonix low fat diet Pancrease Monitor lytes continue rest Subjective ROS Limited/Unobtainable: No Objective Objective Last 24 Hour Vital Signs Date Time Temp Pulse Resp B/P (MAP) Pulse Ox O2 Delivery O2 Flow Rate FiO2 09/08/18 08:00 98.0 90 19 119/80 (93) 98 103 09/08/18 04:00 108 09/08/18 04:00 98.9 90 20 111/68 (82) 97 09/08/18 00:00 85 09/08/18 00:00 98.5 80 18 103/65 (78) 98 09/07/18 21:00 Room Air 09/07/18 20:00 94 09/07/18 20:00 98.6 83 18 103/65 (78) 98 09/07/18 16:00 98.5 98 21 134/77 (96) 99 09/07/18 16:00 93 09/07/18 12:00 109 09/07/18 12:00 99.0 111 19 117/72 (87) 97 Intake and Output 09/07/18 09/08/18 18:59 06:59 Intake Total 820 ml 320 ml Balance 820 ml 320 ml Intake Oral 820 ml 320 ml # Bowel Movements 1 Laboratory Tests 09/08/18 06:55: White Blood Count [Pending], Red Blood Count [Pending], Hemoglobin [Pending], Hematocrit [Pending], Mean Corpuscular Volume [Pending], Mean Corpuscular Hemoglobin [Pending], Mean Corpuscular Hemoglobin Concent [Pending], Red Cell Distribution Width [Pending], Platelet Count [Pending], Mean Platelet Volume [ Pending], Neutrophils (%) (Auto) [Pending], Lymphocytes (%) (Auto) [Pending], Monocytes (%) (Auto) [Pending], Eosinophils (%) (Auto) [Pending], Basophils (%) (Auto) [Pending], Sodium Level [Pending], Potassium Level [Pending], Chloride Level [Pending], Carbon Dioxide Level [Pending], Blood Urea Nitrogen [Pending], Creatinine [Pending], Estimat Glomerular Filtration Rate [Pending], Glucose Level [Pending], Calcium Level [Pending], Total Bilirubin [Pending], Aspartate Amino Transf (AST/SGOT) [Pending], Alanine Aminotransferase (ALT/SGPT) [Pending] , Alkaline Phosphatase [Pending], Total Protein [Pending], Albumin [Pending], Globulin [Pending] Height (Feet): 5 Height (Inches): 8.00 Weight (Pounds): 173 General Appearance: no apparent distress Objective no change Deion Kendrick MD Sep 08, 2018 09:19
[2018-09-08 09:46] LABS: BASOPHILS % (AUTO) 1.5 % (0.0-2.0); EOSINOPHILS % (AUTO) 1.8 % (0.0-3.0); HEMATOCRIT 35.1 % (42.0-52.0); HEMOGLOBIN 12.1 G/DL (14.2-18.0); LYMPHOCYTES % (AUTO) 16.2 % (20.0-45.0); MEAN CORPUSCULAR VOLUME 93 FL (80-99); MONOCYTES % (AUTO) 18.4 % (1.0-10.0); PLATELET COUNT 343 K/UL (150-450); RED BLOOD COUNT 3.78 M/UL (4.70-6.10); RED CELL DISTRIBUTION WIDTH 13.8 % (11.6-14.8); WHITE BLOOD COUNT 10.8 K/UL (4.8-10.8)
[2018-09-08] MEDS: Thiamine 100mg tab ORAL SCH (09:55)
[2018-09-08] MEDS: Docusate Sod/Senna tab ORAL SCH (09:55)
[2018-09-08] MEDS: Pancrease Cap ORAL SCH ×2 (09:55→13:10)
[2018-09-08 10:07] LABS: ALANINE AMINOTRANSFERASE 56 U/L (12-78); ALBUMIN 3.1 G/DL (3.4-5.0); ALBUMIN/GLOBULIN RATIO 0.6 (1.0-2.7); ALKALINE PHOSPHATASE 273 U/L (46-116); ANION GAP 12 mmol/L (5-15); ASPARTATE AMINO TRANSFERASE 118 U/L (15-37); BILIRUBIN,TOTAL 3.4 MG/DL (0.2-1.0); BLOOD UREA NITROGEN 8 mg/dL (7-18); CALCIUM 9.3 MG/DL (8.5-10.1); CARBON DIOXIDE 24 MMOL/L (21-32); CHLORIDE 97 MMOL/L (98-107); CREATININE 0.7 MG/DL (0.55-1.30); POTASSIUM 3.8 MMOL/L (3.5-5.1); SODIUM 133 MMOL/L (136-145)
[2018-09-08 10:09] LABS: BILIRUBIN,DIRECT 2.7 MG/DL (0.0-0.3)
--- NOTE | 2018-09-08 10:43 | General Progress Note ---
Assessment/Plan Problem List: (1) Alcohol dependence ICD Codes: F10.20 - Alcohol dependence, uncomplicated SNOMED: 52696549 Qualifiers: Qualified Codes: F10.288 - Alcohol dependence with other alcohol-induced disorder Status: stable, progressing Assessment/Plan dc valium cont prozac cont remeron left a script in chart Subjective Date patient seen: Sep 08, 2018 Neurologic/Psychiatric: Reports: anxiety, depressed, emotional problems Allergies: Coded Allergies: No Known Allergies (Unverified , 04/26/18) Subjective the pt was motivated to not drink after discharge doing well Objective Last 24 Hour Vital Signs Date Time Temp Pulse Resp B/P (MAP) Pulse Ox O2 Delivery O2 Flow Rate FiO2 09/08/18 08:00 96 09/08/18 08:00 98.0 90 19 119/80 (93) 98 103 09/08/18 04:00 108 09/08/18 04:00 98.9 90 20 111/68 (82) 97 09/08/18 00:00 85 09/08/18 00:00 98.5 80 18 103/65 (78) 98 09/07/18 21:00 Room Air 09/07/18 20:00 94 09/07/18 20:00 98.6 83 18 103/65 (78) 98 09/07/18 16:00 98.5 98 21 134/77 (96) 99 09/07/18 16:00 93 09/07/18 12:00 109 09/07/18 12:00 99.0 111 19 117/72 (87) 97 Intake and Output 09/07/18 09/08/18 18:59 06:59 Intake Total 820 ml 320 ml Balance 820 ml 320 ml Intake Oral 820 ml 320 ml # Bowel Movements 1 Laboratory Tests 09/08/18 06:55: White Blood Count 10.8, Red Blood Count 3.78L, Hemoglobin 12.1L, Hematocrit 35.1L, Mean Corpuscular Volume 93, Mean Corpuscular Hemoglobin 32.0H, Mean Corpuscular Hemoglobin Concent 34.4, Red Cell Distribution Width 13.8, Platelet Count 343, Mean Platelet Volume 7.2, Neutrophils (%) (Auto) 62.0, Lymphocytes (% ) (Auto) 16.2L, Monocytes (%) (Auto) 18.4H, Eosinophils (%) (Auto) 1.8, Basophils (%) (Auto) 1.5, Sodium Level 133L, Potassium Level 3.8, Chloride Level 97L, Carbon Dioxide Level 24, Anion Gap 12, Blood Urea Nitrogen 8, Creatinine 0.7, Estimat Glomerular Filtration Rate > 60, Glucose Level 95, Calcium Level 9.3, Total Bilirubin 3.4H, Direct Bilirubin 2.7H, Aspartate Amino Transf (AST/SGOT) 118H, Alanine Aminotransferase (ALT/SGPT) 56, Alkaline Phosphatase 273H, Total Protein 8.2, Albumin 3.1L, Globulin 5.1, Albumin/ Globulin Ratio 0.6L Height (Feet): 5 Height (Inches): 8.00 Weight (Pounds): 173 General Appearance: alert Neurologic: oriented x 3, responsive, depressed affect Reno Lozano MD Sep 08, 2018 10:43
[2018-09-08 12:00] VITALS: BP 122/73
--- NOTE | 2018-09-08 13:28 | Infectious Diseases Prog Note ---
Assessment/Plan Assessment/Plan A: 1. Acute pancreatitis, maybe secondary to alcohol abuse. 2. Hyponatremia. 3. Acute renal failure, resolved 4. Fatty liver. 5. Hiatal hernia. 6. Hypokalemia 7. Gallbladder polyp P Observe off antibiotic Subjective ROS Limited/Unobtainable: No Constitutional: Reports: no symptoms Respiratory: Reports: no symptoms Cardiovascular: Reports: no symptoms Gastrointestinal/Abdominal: Reports: no symptoms Genitourinary: Reports: no symptoms Allergies: Coded Allergies: No Known Allergies (Unverified , 04/26/18) Objective Vital Signs Last 24 Hour Vital Signs Date Time Temp Pulse Resp B/P (MAP) Pulse Ox O2 Delivery O2 Flow Rate FiO2 09/08/18 12:00 99 09/08/18 12:00 98.0 96 20 122/73 (89) 96 09/08/18 09:00 Room Air 09/08/18 08:00 96 09/08/18 08:00 98.0 103 19 119/80 (93) 98 09/08/18 04:00 108 09/08/18 04:00 98.9 90 20 111/68 (82) 97 09/08/18 00:00 85 09/08/18 00:00 98.5 80 18 103/65 (78) 98 09/07/18 21:00 Room Air 09/07/18 20:00 94 09/07/18 20:00 98.6 83 18 103/65 (78) 98 09/07/18 16:00 98.5 98 21 134/77 (96) 99 09/07/18 16:00 93 Height (Feet): 5 Height (Inches): 8.00 Weight (Pounds): 173 General Appearance: no acute distress HEENT: mucous membranes moist Respiratory/Chest: lungs clear Cardiovascular: normal rate Abdomen: soft, non tender Extremities: no edema Neurologic/Psychiatric: alert, oriented x 3, responsive Laboratory Tests Test 09/08/18 06:55 White Blood Count 10.8 K/UL (4.8-10.8) Red Blood Count 3.78 M/UL (4.70-6.10) L Hemoglobin 12.1 G/DL (14.2-18.0) L Hematocrit 35.1 % (42.0-52.0) L Mean Corpuscular Volume 93 FL (80-99) Mean Corpuscular Hemoglobin 32.0 PG (27.0-31.0) H Mean Corpuscular Hemoglobin Concent 34.4 G/DL (32.0-36.0) Red Cell Distribution Width 13.8 % (11.6-14.8) Platelet Count 343 K/UL (150-450) Mean Platelet Volume 7.2 FL (6.5-10.1) Neutrophils (%) (Auto) 62.0 % (45.0-75.0) Lymphocytes (%) (Auto) 16.2 % (20.0-45.0) L Monocytes (%) (Auto) 18.4 % (1.0-10.0) H Eosinophils (%) (Auto) 1.8 % (0.0-3.0) Basophils (%) (Auto) 1.5 % (0.0-2.0) Sodium Level 133 MMOL/L (136-145) L Potassium Level 3.8 MMOL/L (3.5-5.1) Chloride Level 97 MMOL/L (98-107) L Carbon Dioxide Level 24 MMOL/L (21-32) Anion Gap 12 mmol/L (5-15) Blood Urea Nitrogen 8 mg/dL (7-18) Creatinine 0.7 MG/DL (0.55-1.30) Estimat Glomerular Filtration Rate > 60 mL/min (>60) Glucose Level 95 MG/DL (74-106) Calcium Level 9.3 MG/DL (8.5-10.1) Total Bilirubin 3.4 MG/DL (0.2-1.0) H Direct Bilirubin 2.7 MG/DL (0.0-0.3) H Aspartate Amino Transf (AST/SGOT) 118 U/L (15-37) H Alanine Aminotransferase (ALT/SGPT) 56 U/L (12-78) Alkaline Phosphatase 273 U/L (46-116) H Total Protein 8.2 G/DL (6.4-8.2) Albumin 3.1 G/DL (3.4-5.0) L Globulin 5.1 g/dL Albumin/Globulin Ratio 0.6 (1.0-2.7) L Current Medications Medications (Trade) Dose Ordered Sig/Solis Route PRN Reason Start Time Stop Time Status Last Admin Dose Admin Acetaminophen/ Hydrocodone Bitart ([place] 5/325) 1 tab Q4H PRN ORAL Moderate Pain (Pain Scale 4-6) 09/03/18 09:45 09/10/18 09:44 Amylase/Lipase/ Protease (Pancrease) 2 ea THREE TIMES A DAY ORAL 09/06/18 13:00 10/06/18 12:59 09/08/18 13:10 Diazepam (Valium) 10 mg EVERY 2 HOURS PRN ORAL For Anxiety 09/01/18 23:30 09/08/18 23:29 09/05/18 01:23 Fluoxetine HCl (PROzac) 20 mg DAILY ORAL 09/02/18 12:34 10/02/18 12:33 09/08/18 09:55 Folic Acid (Folate) 1 mg DAILY ORAL 09/02/18 09:00 10/02/18 08:59 09/08/18 09:55 Iopamidol (Isovue-300 100ml) 100 ml NOW PRN INJ Radiology Procedure 09/01/18 19:45 Mirtazapine (Remeron) 7.5 mg BEDTIME ORAL 09/02/18 21:00 10/02/18 20:59 09/07/18 20:21 Ondansetron HCl (Zofran) 4 mg Q6H PRN IVP Nausea & Vomiting 09/02/18 01:15 10/02/18 01:14 09/02/18 08:39 Pantoprazole (Protonix) 40 mg EVERY 12 HOURS ORAL 09/03/18 21:00 10/03/18 20:59 09/08/18 09:54 Potassium Chloride (K-Dur) 40 meq BID ORAL 09/06/18 18:00 10/05/18 08:59 09/08/18 09:55 Senna/Docusate Sodium (Summer-Colace) 1 tab TWICE A DAY ORAL 09/04/18 09:00 10/04/18 08:59 09/08/18 09:55 Thiamine HCl (Vitamin B1) 100 mg DAILY ORAL 09/02/18 09:00 10/02/18 08:59 09/08/18 09:55 Anam Corona MD Sep 08, 2018 13:28
--- NOTE | 2018-09-08 14:25 | GI Progress Note ---
Assessment/Plan Problems: (1) Abnormal LFTs (liver function tests) ICD Codes: R94.5 - Abnormal results of liver function studies SNOMED: 287817445 (2) Abdominal pain ICD Codes: R10.9 - Unspecified abdominal pain SNOMED: 95425498 (3) Pancreatitis ICD Codes: K85.90 - Acute pancreatitis without necrosis or infection, unspecified SNOMED: 73506897 (4) Hyponatremia ICD Codes: E87.1 - Hypo-osmolality and hyponatremia SNOMED: 54614622 (5) Dehydration ICD Codes: E86.0 - Dehydration SNOMED: 98141457 (6) Alcohol dependence ICD Codes: F10.20 - Alcohol dependence, uncomplicated SNOMED: 01044625 Qualifiers: Qualified Codes: F10.288 - Alcohol dependence with other alcohol-induced disorder Status: stable Status Narrative Discussed with Dr. Victoria. Assessment/Plan mild transaminitis, elevated bilirubin, elevated GGT >> possible liver damage elevated lipase levels >> pancreatitis most likely due to chronic ETOH use utox negative hepatitis panel negative MRCP reviewed >> possible 1.2 cm gallbladder polyp. No evidence of biliary ductal dilatation or choledocholithiasis. Enlarged fatty liver. >> fu surgical recs okay for DC per GI standpoint, follow up with us as outpatient regular diet pain mgmt zofran prn trend LFTs, lipase fu labs extensive discussion to avoid ETOH The patient was seen and examined at bedside and all new and available data was reviewed in the patients chart. I agree with the above findings, impression and plan. (Patient seen earlier today. Signature stamp does not reflect patient encounter time.). - Luis Armando Victoria MD Subjective Gastrointestinal/Abdominal: Reports: no symptoms Objective Last 24 Hour Vital Signs Date Time Temp Pulse Resp B/P (MAP) Pulse Ox O2 Delivery O2 Flow Rate FiO2 09/08/18 12:00 99 09/08/18 12:00 98.0 96 20 122/73 (89) 96 09/08/18 09:00 Room Air 09/08/18 08:00 96 09/08/18 08:00 98.0 103 19 119/80 (93) 98 09/08/18 04:00 108 09/08/18 04:00 98.9 90 20 111/68 (82) 97 09/08/18 00:00 85 09/08/18 00:00 98.5 80 18 103/65 (78) 98 09/07/18 21:00 Room Air 09/07/18 20:00 94 09/07/18 20:00 98.6 83 18 103/65 (78) 98 09/07/18 16:00 98.5 98 21 134/77 (96) 99 09/07/18 16:00 93 Intake and Output 09/07/18 09/08/18 19:00 07:00 Intake Total 820 ml 320 ml Balance 820 ml 320 ml Intake Oral 820 ml 320 ml # Bowel Movements 1 Laboratory Tests Test 09/08/18 06:55 White Blood Count 10.8 K/UL (4.8-10.8) Red Blood Count 3.78 M/UL (4.70-6.10) L Hemoglobin 12.1 G/DL (14.2-18.0) L Hematocrit 35.1 % (42.0-52.0) L Mean Corpuscular Volume 93 FL (80-99) Mean Corpuscular Hemoglobin 32.0 PG (27.0-31.0) H Mean Corpuscular Hemoglobin Concent 34.4 G/DL (32.0-36.0) Red Cell Distribution Width 13.8 % (11.6-14.8) Platelet Count 343 K/UL (150-450) Mean Platelet Volume 7.2 FL (6.5-10.1) Neutrophils (%) (Auto) 62.0 % (45.0-75.0) Lymphocytes (%) (Auto) 16.2 % (20.0-45.0) L Monocytes (%) (Auto) 18.4 % (1.0-10.0) H Eosinophils (%) (Auto) 1.8 % (0.0-3.0) Basophils (%) (Auto) 1.5 % (0.0-2.0) Sodium Level 133 MMOL/L (136-145) L Potassium Level 3.8 MMOL/L (3.5-5.1) Chloride Level 97 MMOL/L (98-107) L Carbon Dioxide Level 24 MMOL/L (21-32) Anion Gap 12 mmol/L (5-15) Blood Urea Nitrogen 8 mg/dL (7-18) Creatinine 0.7 MG/DL (0.55-1.30) Estimat Glomerular Filtration Rate > 60 mL/min (>60) Glucose Level 95 MG/DL (74-106) Calcium Level 9.3 MG/DL (8.5-10.1) Total Bilirubin 3.4 MG/DL (0.2-1.0) H Direct Bilirubin 2.7 MG/DL (0.0-0.3) H Aspartate Amino Transf (AST/SGOT) 118 U/L (15-37) H Alanine Aminotransferase (ALT/SGPT) 56 U/L (12-78) Alkaline Phosphatase 273 U/L (46-116) H Total Protein 8.2 G/DL (6.4-8.2) Albumin 3.1 G/DL (3.4-5.0) L Globulin 5.1 g/dL Albumin/Globulin Ratio 0.6 (1.0-2.7) L Height (Feet): 5 Height (Inches): 8.00 Weight (Pounds): 173 General Appearance: WD/WN, no apparent distress, alert Cardiovascular: normal rate Respiratory/Chest: normal breath sounds, no respiratory distress Abdominal Exam: normal bowel sounds, non tender, soft Extremities: normal range of motion, non-tender Juliette Diop NP Sep 08, 2018 14:25
--- NOTE | 2018-09-08 16:21 | General Surgery Progress Note ---
General Surgery-Progress Note Subjective Symptoms: improved, pain absent, BM Objective Last 24 Hour Vital Signs Date Time Temp Pulse Resp B/P (MAP) Pulse Ox O2 Delivery O2 Flow Rate FiO2 09/08/18 12:00 99 09/08/18 12:00 98.0 96 20 122/73 (89) 96 09/08/18 09:00 Room Air 09/08/18 08:00 96 09/08/18 08:00 98.0 103 19 119/80 (93) 98 09/08/18 04:00 108 09/08/18 04:00 98.9 90 20 111/68 (82) 97 09/08/18 00:00 85 09/08/18 00:00 98.5 80 18 103/65 (78) 98 09/07/18 21:00 Room Air 09/07/18 20:00 94 09/07/18 20:00 98.6 83 18 103/65 (78) 98 I&O Intake and Output 09/07/18 09/08/18 19:00 07:00 Intake Total 820 ml 320 ml Balance 820 ml 320 ml Intake Oral 820 ml 320 ml # Bowel Movements 1 Respiratory: clear Abdomen: soft, flat, non-tender, present bowel sounds Extremities: no tenderness Laboratory Tests Test 09/08/18 06:55 White Blood Count 10.8 K/UL (4.8-10.8) Red Blood Count 3.78 M/UL (4.70-6.10) L Hemoglobin 12.1 G/DL (14.2-18.0) L Hematocrit 35.1 % (42.0-52.0) L Mean Corpuscular Volume 93 FL (80-99) Mean Corpuscular Hemoglobin 32.0 PG (27.0-31.0) H Mean Corpuscular Hemoglobin Concent 34.4 G/DL (32.0-36.0) Red Cell Distribution Width 13.8 % (11.6-14.8) Platelet Count 343 K/UL (150-450) Mean Platelet Volume 7.2 FL (6.5-10.1) Neutrophils (%) (Auto) 62.0 % (45.0-75.0) Lymphocytes (%) (Auto) 16.2 % (20.0-45.0) L Monocytes (%) (Auto) 18.4 % (1.0-10.0) H Eosinophils (%) (Auto) 1.8 % (0.0-3.0) Basophils (%) (Auto) 1.5 % (0.0-2.0) Sodium Level 133 MMOL/L (136-145) L Potassium Level 3.8 MMOL/L (3.5-5.1) Chloride Level 97 MMOL/L (98-107) L Carbon Dioxide Level 24 MMOL/L (21-32) Anion Gap 12 mmol/L (5-15) Blood Urea Nitrogen 8 mg/dL (7-18) Creatinine 0.7 MG/DL (0.55-1.30) Estimat Glomerular Filtration Rate > 60 mL/min (>60) Glucose Level 95 MG/DL (74-106) Calcium Level 9.3 MG/DL (8.5-10.1) Total Bilirubin 3.4 MG/DL (0.2-1.0) H Direct Bilirubin 2.7 MG/DL (0.0-0.3) H Aspartate Amino Transf (AST/SGOT) 118 U/L (15-37) H Alanine Aminotransferase (ALT/SGPT) 56 U/L (12-78) Alkaline Phosphatase 273 U/L (46-116) H Total Protein 8.2 G/DL (6.4-8.2) Albumin 3.1 G/DL (3.4-5.0) L Globulin 5.1 g/dL Albumin/Globulin Ratio 0.6 (1.0-2.7) L Assessment Additional Comments abdominal pain resolved elevated lipase Plan Additional Comments per G-I specialist Marla Vaughn MD Sep 08, 2018 16:21
--- NOTE | 2018-09-08 16:22 | General Progress Note ---
Assessment/Plan Problem List: (1) Dehydration ICD Codes: E86.0 - Dehydration SNOMED: 85193086 (2) Pancreatitis ICD Codes: K85.90 - Acute pancreatitis without necrosis or infection, unspecified SNOMED: 97221313 (3) Abdominal pain ICD Codes: R10.9 - Unspecified abdominal pain SNOMED: 87516305 (4) Abnormal LFTs (liver function tests) ICD Codes: R94.5 - Abnormal results of liver function studies SNOMED: 822625789 (5) Alcohol dependence ICD Codes: F10.20 - Alcohol dependence, uncomplicated SNOMED: 40339917 Qualifiers: Qualified Codes: F10.288 - Alcohol dependence with other alcohol-induced disorder Status: progressing Assessment/Plan dc home today pancreatitis is improved abdominal pain is improved Subjective ROS Limited/Unobtainable: Yes Allergies: Coded Allergies: No Known Allergies (Unverified , 04/26/18) Objective Last 24 Hour Vital Signs Date Time Temp Pulse Resp B/P (MAP) Pulse Ox O2 Delivery O2 Flow Rate FiO2 09/08/18 12:00 99 09/08/18 12:00 98.0 96 20 122/73 (89) 96 09/08/18 09:00 Room Air 09/08/18 08:00 96 09/08/18 08:00 98.0 103 19 119/80 (93) 98 09/08/18 04:00 108 09/08/18 04:00 98.9 90 20 111/68 (82) 97 09/08/18 00:00 85 09/08/18 00:00 98.5 80 18 103/65 (78) 98 09/07/18 21:00 Room Air 09/07/18 20:00 94 09/07/18 20:00 98.6 83 18 103/65 (78) 98 Intake and Output 09/07/18 09/08/18 19:00 07:00 Intake Total 820 ml 320 ml Balance 820 ml 320 ml Intake Oral 820 ml 320 ml # Bowel Movements 1 Laboratory Tests 09/08/18 06:55: White Blood Count 10.8, Red Blood Count 3.78L, Hemoglobin 12.1L, Hematocrit 35.1L, Mean Corpuscular Volume 93, Mean Corpuscular Hemoglobin 32.0H, Mean Corpuscular Hemoglobin Concent 34.4, Red Cell Distribution Width 13.8, Platelet Count 343, Mean Platelet Volume 7.2, Neutrophils (%) (Auto) 62.0, Lymphocytes (% ) (Auto) 16.2L, Monocytes (%) (Auto) 18.4H, Eosinophils (%) (Auto) 1.8, Basophils (%) (Auto) 1.5, Sodium Level 133L, Potassium Level 3.8, Chloride Level 97L, Carbon Dioxide Level 24, Anion Gap 12, Blood Urea Nitrogen 8, Creatinine 0.7, Estimat Glomerular Filtration Rate > 60, Glucose Level 95, Calcium Level 9.3, Total Bilirubin 3.4H, Direct Bilirubin 2.7H, Aspartate Amino Transf (AST/SGOT) 118H, Alanine Aminotransferase (ALT/SGPT) 56, Alkaline Phosphatase 273H, Total Protein 8.2, Albumin 3.1L, Globulin 5.1, Albumin/ Globulin Ratio 0.6L Height (Feet): 5 Height (Inches): 8.00 Weight (Pounds): 173 Cardiovascular: normal rate Respiratory/Chest: lungs clear Abdomen: soft Bessy Mccormick MD Sep 08, 2018 16:22
--- NOTE | 2018-09-08 22:58 | Cardiology Progress Note ---
Assessment/Plan Assessment/Plan 1. Sinus tachycardia, resolved, continue hydration and pain control. 2. Alcoholic hepatitis with associated thrombocytopenia. 3. Acute kidney injury, resolved, continue hydration. 4. Hypomagnesemia, Mg level at 1.9. 5. Hypokalemia, resolved. 6. Mixed dyslipidemia likely in association with alcohol fatty liver. Subjective Subjective Sinus rhythm at the rate of 99. Objective Last 24 Hour Vital Signs Date Time Temp Pulse Resp B/P (MAP) Pulse Ox O2 Delivery O2 Flow Rate FiO2 09/08/18 12:00 99 09/08/18 12:00 98.0 96 20 122/73 (89) 96 09/08/18 09:00 Room Air 09/08/18 08:00 96 09/08/18 08:00 98.0 103 19 119/80 (93) 98 09/08/18 04:00 108 09/08/18 04:00 98.9 90 20 111/68 (82) 97 09/08/18 00:00 85 09/08/18 00:00 98.5 80 18 103/65 (78) 98 Intake and Output 09/07/18 09/08/18 19:00 07:00 Intake Total 820 ml 320 ml Balance 820 ml 320 ml Intake Oral 820 ml 320 ml # Bowel Movements 1 2D Echo: LVEF 65%, RVSP 12 mmHg Laboratory Tests Test 09/08/18 06:55 White Blood Count 10.8 K/UL (4.8-10.8) Red Blood Count 3.78 M/UL (4.70-6.10) L Hemoglobin 12.1 G/DL (14.2-18.0) L Hematocrit 35.1 % (42.0-52.0) L Mean Corpuscular Volume 93 FL (80-99) Mean Corpuscular Hemoglobin 32.0 PG (27.0-31.0) H Mean Corpuscular Hemoglobin Concent 34.4 G/DL (32.0-36.0) Red Cell Distribution Width 13.8 % (11.6-14.8) Platelet Count 343 K/UL (150-450) Mean Platelet Volume 7.2 FL (6.5-10.1) Neutrophils (%) (Auto) 62.0 % (45.0-75.0) Lymphocytes (%) (Auto) 16.2 % (20.0-45.0) L Monocytes (%) (Auto) 18.4 % (1.0-10.0) H Eosinophils (%) (Auto) 1.8 % (0.0-3.0) Basophils (%) (Auto) 1.5 % (0.0-2.0) Sodium Level 133 MMOL/L (136-145) L Potassium Level 3.8 MMOL/L (3.5-5.1) Chloride Level 97 MMOL/L (98-107) L Carbon Dioxide Level 24 MMOL/L (21-32) Anion Gap 12 mmol/L (5-15) Blood Urea Nitrogen 8 mg/dL (7-18) Creatinine 0.7 MG/DL (0.55-1.30) Estimat Glomerular Filtration Rate > 60 mL/min (>60) Glucose Level 95 MG/DL (74-106) Calcium Level 9.3 MG/DL (8.5-10.1) Total Bilirubin 3.4 MG/DL (0.2-1.0) H Direct Bilirubin 2.7 MG/DL (0.0-0.3) H Aspartate Amino Transf (AST/SGOT) 118 U/L (15-37) H Alanine Aminotransferase (ALT/SGPT) 56 U/L (12-78) Alkaline Phosphatase 273 U/L (46-116) H Total Protein 8.2 G/DL (6.4-8.2) Albumin 3.1 G/DL (3.4-5.0) L Globulin 5.1 g/dL Albumin/Globulin Ratio 0.6 (1.0-2.7) L Objective HEENT: Atraumatic and normocephalic. Anicteric. Pupils are equal, round, and reactive to light and accommodation. Extraocular muscles intact. NECK: JVP less than 5 cm. No carotid bruit. Carotid upstrokes 2+ bilaterally. CARDIOVASCULAR: Normal S1 and S2. Regular rate and rhythm. Tachycardic. No murmurs, gallops, or rubs. PMI is at fourth intercostal space in the midclavicular line. LUNGS: Clear to auscultation bilaterally. ABDOMEN: Slightly firm. Mild epigastric tenderness. Diminished bowel sounds. EXTREMITIES: No evidence of edema, clubbing, or cyanosis. Bassem Mora MD Sep 08, 2018 22:58
--- NOTE | 2018-09-09 11:24 | Discharge Summary ---
Discharge Summary Discharge Summary _ DATE OF ADMISSION: 09/01/2018 DATE OF DISCHARGE: 09/08/2018 REASON FOR ADMISSION: 28 years old male with past medical history of ETOH abuse, presented with abdominal pain, nausea and vomiting for 2 weeks. Patient reported that pain started about 2 months ago , then stopped and reappeared about 2 weeks ago. Pain felt over the whole abdomen, but mostly located on the left side. He described pain as nonradiating, sharp in nature and intermittent. Patient reported multiple episodes of nonbloody and nonbilious vomiting , no diarrhea. Last bowel movement morning prior to presentation. He denied coffee-ground emesis or black stools. No fever no chills. No history of abdominal surgery. No prior history of endoscopy or colonoscopy. Last drink was 3 weeks ago. Upon evaluation patient was tachycardic with heart rate 135, blood pressure 149/ 95 .Afebrile. Laboratory workup revealed leukocytosis WBC 16.4 ,stable hemoglobin and hematocrit. Platelets 106 Chemistry reveal hyponatremia sodium 127 BUN 24 creatinine 1.7. Total bili 8.0, direct bili 5.7 , AST 322 ALT 119 . Lipase over 2000. Urine toxicology screen was positive for benzodiazepine . Serum alcohol level was less than 3 Chest x-ray revealed no acute cardiopulmonary pathology. CT of the abdomen and pelvis revealed somewhat enlarged fatty liver. No definite acute process. Possible gallbladder sludge. [id number] hiatal hernia. Patient admitted with diagnoses of pancreatitis, hyponatremia, and dehydration. CONSULTANTS: orange grower Dr. Mora ID specialist Dr. Rajwinder Corona GI specialist Dr. Victoria draw hand Dr. Kendrick wellness specialist/oncologist Dr. Ferrera surgery Dr. Cheek psychiatrist Pain specialist Dr. Hammer [facility] COURSE: Patient admitted to telemetry floor due to sinus tachycardia. Patient initially seen by surgeon. No acute surgical intervention was required at this time. Patient was kept nothing by mouth and started on the IV hydration. Pain management was addressed. Patient did not require any AV samm agents at that point. Echocardiogram revealed preserved ejection fraction of 65%. No evidence of left ventricular hypertrophy. No wall motion abnormalities. Blood pressure stabilized as pain was controlled . Sinus tachycardia resolved. GI specialist closely followed. Abdominal ultrasound revealed enlarged fatty fever , as described on recent CAT scan. Negative for dilated ducts or gallstones. Lipase and LFT were clsoely monitored.. Lipase remained elevated. LFT and bilirubin trending down. Elevated GGT noted . Hepatitis panel was negative . HIV test was nonreactive. Lipid panel revealed evidence of mixed hyperlipidemia with elevated triglycerides ,elevated total cholesterol and elevated LDL, likely due to association with alcoholic fatty liver. MRCP of the abdomen revealed possible gallbladder polyp. No evidence of ductal dilatation or choledocholithiasis. Enlarged fatty liver. Haulage Engine Operator closely followed. Renal parameters and electrolytes were closely monitored. Patient was initially on IV fluids. Electrolytes replaced as needed. Gastric support provided. Nephrotoxins were avoided. Prior to discharge hyponatremia improved from 127 up to 133. Stable potassium and phosphorus. Acute kidney injury was likely due to dehydration and resolved. Per orange grower , patient had sinus tachycardia likely due to combination of hypovolemia ( there was evidence of hyponatremia and acute kidney injury) most likely intravascular volume depletion and systemic inflammatory response due to of acute pancreatitis . Patient did not require any AV samm agents at that point. Echocardiogram revealed preserved ejection fraction of 65%. No evidence of left ventricular hypertrophy. No wall motion abnormalities. Blood pressure stabilized as pain was controlled . Sinus tachycardia resolved. Patient slowly advanced to low-fat diet. Pancrease provided with every meal . Antiemetics provided as needed. Bowel regimen instituted. Patient was counseled on abstinence form alcohol. Outpatient follow up with GI specialist was advised for management of fatty liver disease. ID specialist followed. No evidence of infection. No fever , leukocytosis resolved, likely reactive. No other findings suggestive of infection. Infectious disease specialist recommended to keep patient off antibiotics. Pain management provided as per pain specialist recommendation. Pain was addressed and controlled. Drawing Hand followed for thrombocytopenia. Thrombocytopenia was likely related to liver etiology. Platelets -92 prior to discharge. Psychiatrist followed, started on Prozac and Remeron, continue as outpatient. prescription provided. Patient stabilized and was ready for discharge FINAL DIAGNOSES: Acute pancreatitis likely secondary to alcohol abuse Alcohol dependency with other alcoholic induced disorder Alcoholic hepatitis Fatty liver, probably alcoholic fatty liver Hyponatremia- improved Dehydration Acute kidney injury-resolved Sinus tachycardia- resolved Electrolyte abnormality Mixed dyslipidemia Hiatal hernia Probable gallbladder polyp Leukocytosis ,likely reactive- resolved DISCHARGE MEDICATIONS: See Medication Reconciliation list. DISCHARGE INSTRUCTIONS: Patient was discharged home Follow up with primary care provider in one week. Follow up with GI specialist as outpatient. I have been assigned to dictate discharge summary for this account. I was not involved in the patient's management. Anna Mejía NP Sep 09, 2018 11:24
== END 2018-09-08 16:40 | disposition home or self-care (01) | DRG 282 ==
LOC: EMR 20:06 → 2E 21:01 → EDBEDREQ 21:30 → UNDODISIN 22:07
DX: K85.20 Alcohol induced acute pancreatitis without necrosis or infection (principal); N17.9 Acute kidney failure, unspecified; D69.6 Thrombocytopenia, unspecified; E83.42 Hypomagnesemia; K70.0 Alcoholic fatty liver; E86.0 Dehydration; E87.1 Hypo-osmolality and hyponatremia; R74.0 Nonspecific elevation of levels of transaminase and lactic acid dehydrogenase [LDH]; F10.21 Alcohol dependence, in remission; K44.9 Diaphragmatic hernia without obstruction or gangrene; R00.0 Tachycardia, unspecified; K70.10 Alcoholic hepatitis without ascites; E87.6 Hypokalemia; K82.4 Cholesterolosis of gallbladder; E78.2 Mixed hyperlipidemia
CPT/HCPCS: 36415; 71045; 74176; 74181; 76700; 80053; 80061; 80307; 80329; 82150; 82248; 82550; 82977; 83036; 83605; 83690; 83735; 83880; 84100; 84443; 84550; 85007; 85025; 85379; 85610; 85730; 86140; 86703; 86705; 86709; 86803; 86850; 86900; 86901; 87340; 93005; 93306; 96361; 96365; 96375; 96376; 99285; C9399; J2405; J8499

== ENCOUNTER 2019-02-14 18:00 | Inpatient (IN) | payer OTHER ==
[~2019-02-14] VITALS: Ht 172.7 cm; Wt 75.3 kg
[2019-02-14 18:15] VITALS: BP 119/71
--- NOTE | 2019-02-14 18:15 | Emergency Room Report ---
History of Present Illness General Chief Complaint: Vomiting Source: Patient Present Illness HPI Patient is a 28-year-old male presents after increased abdominal discomfort and vomiting. Patient reports of increased generalized weakness for the past 3 days. Patient reports having multiple episodes of nonbloody emesis. He had prior history of pancreatitis as well as alcohol abuse. He denies any alcohol use for the past several months. Patient had previous hospitalization for pancreatitis at this hospital. Patient was noted to have no bloody stools or hematemesis. He states he been drinking Pedialyte without any improvement. He reports having some generalized pain. Allergies: Coded Allergies: No Known Allergies (Unverified , 04/26/18) Patient History Past Medical History: see triage record Reviewed Nursing Documentation: PMH: Agreed; PSxH: Agreed Nursing Documentation-PMH Past Medical History: No History, Except For Hx Gastrointestinal Problems: Yes Review of Systems All Other Systems: negative except mentioned in HPI Physical Exam Vital Signs Date Time Temp Pulse Resp B/P (MAP) Pulse Ox O2 Delivery O2 Flow Rate FiO2 02/14/19 18:08 98.4 137 13 120/59 94 Room Air General Appearance: alert, Chronically Ill Eyes: bilateral eye conjunctivae pale ENT: normal pharynx, uvula midline Neck: normal inspection, full range of motion, supple Respiratory: normal inspection, lungs clear, normal breath sounds Cardiovascular #1: normal inspection, regular rate, rhythm, no edema Gastrointestinal: normal inspection, normal bowel sounds, non tender, soft, no mass Musculoskeletal: normal inspection Neurologic: normal inspection, alert, oriented x3, responsive, call center rn III-XII nml as tested Skin: jaundice Procedures Critical Care Time Critical Care Time Patient had a critical medical condition which untreated could potentially result in life or limb threatening injury. Total critical care time excluding procedures approximately 45 minutes. Medical Decision Making Diagnostic Impression: Primary Impression: Abdominal pain ER Course Patient presented for abdominal pain. Differential diagnoses included ischemic bowel, appendicitis, perforated viscus, abdominal aortic aneurysm, inferior myocardial infarction, viral gastroenteritis among others. Because of complexity of patient's case laboratory testing and imaging studies were ordered.Patient's laboratory testing showed marked elevated white blood count as well as severely diminished hemoglobin and some coagulopathy. Patient was advised the risk benefits alternatives of transfusion he indicated understanding is willing to proceed with transfusion.Patient was noted to be jaundiced and had elevated bilirubin level Dr. Guido Davis was contacted for inpatient management. Dr. Victoria was contacted for GI consult. Labs Test 02/14/19 18:30 White Blood Count 30.6 K/UL (4.8-10.8) Red Blood Count 1.72 M/UL (4.70-6.10) Hemoglobin 4.0 G/DL (14.2-18.0) Hematocrit 13.4 % (42.0-52.0) Mean Corpuscular Volume 78 FL (80-99) Mean Corpuscular Hemoglobin 23.2 PG (27.0-31.0) Mean Corpuscular Hemoglobin Concent 29.7 G/DL (32.0-36.0) Red Cell Distribution Width 25.6 % (11.6-14.8) Platelet Count 309 K/UL (150-450) Mean Platelet Volume 5.5 FL (6.5-10.1) Neutrophils (%) (Auto) % (45.0-75.0) Lymphocytes (%) (Auto) % (20.0-45.0) Monocytes (%) (Auto) % (1.0-10.0) Eosinophils (%) (Auto) % (0.0-3.0) Basophils (%) (Auto) % (0.0-2.0) Differential Total Cells Counted 100 Neutrophils % (Manual) 88 % (45-75) Lymphocytes % (Manual) 6 % (20-45) Monocytes % (Manual) 5 % (1-10) Eosinophils % (Manual) 0 % (0-3) Basophils % (Manual) 1 % (0-2) Band Neutrophils 0 % (0-8) Platelet Estimate Adequate Platelet Morphology Normal Polychromasia 2+ Hypochromasia 3+ Anisocytosis 3+ Prothrombin Time 13.1 SEC (9.30-11.50) Prothromb Time International Ratio 1.3 (0.9-1.1) Activated Partial Thromboplast Time 24 SEC (23-33) Sodium Level 138 MMOL/L (136-145) Potassium Level 3.6 MMOL/L (3.5-5.1) Chloride Level 101 MMOL/L (98-107) Carbon Dioxide Level 23 MMOL/L (21-32) Anion Gap 14 mmol/L (5-15) Blood Urea Nitrogen 20 mg/dL (7-18) Creatinine 0.9 MG/DL (0.55-1.30) Estimat Glomerular Filtration Rate > 60 mL/min (>60) Glucose Level 182 MG/DL (74-106) Calcium Level 7.5 MG/DL (8.5-10.1) Total Bilirubin 3.9 MG/DL (0.2-1.0) Direct Bilirubin 3.1 MG/DL (0.0-0.3) Aspartate Amino Transf (AST/SGOT) 89 U/L (15-37) Alanine Aminotransferase (ALT/SGPT) 22 U/L (12-78) Alkaline Phosphatase 335 U/L (46-116) Total Protein 6.2 G/DL (6.4-8.2) Albumin 2.4 G/DL (3.4-5.0) Globulin 3.8 g/dL Albumin/Globulin Ratio 0.6 (1.0-2.7) Lipase 346 U/L (73-393) EKG Diagnostic Results Rate: tachycardiac - 131 Rhythm: NSR ST Segments: no acute changes Last Vital Signs Date Time Temp Pulse Resp B/P (MAP) Pulse Ox O2 Delivery O2 Flow Rate FiO2 02/14/19 18:08 98.4 137 13 120/59 94 Room Air Status: unchanged Disposition: ADMITTED INPATIENT Condition: Critical Gregorio Padgett MD Feb 14, 2019 18:15
[2019-02-14] MEDS ORDERED: MELATONIN1 M3 PO (18:16)
[2019-02-14] MEDS ORDERED: UNOBMED (18:46)
[2019-02-14 19:03] LABS: HEMATOCRIT 13.4 % (42.0-52.0); MEAN CORPUSCULAR VOLUME 78 FL (80-99); PLATELET COUNT 309 K/UL (150-450); RED BLOOD COUNT 1.72 M/UL (4.70-6.10); RED CELL DISTRIBUTION WIDTH 25.6 % (11.6-14.8)
[2019-02-14 19:05] LABS: WHITE BLOOD COUNT 30.6 K/UL (4.8-10.8)
[2019-02-14 19:10] LABS: ANION GAP 14 mmol/L (5-15); BLOOD UREA NITROGEN 20 mg/dL (7-18); CALCIUM 7.5 MG/DL (8.5-10.1); CARBON DIOXIDE 23 MMOL/L (21-32); CHLORIDE 101 MMOL/L (98-107); CREATININE 0.9 MG/DL (0.55-1.30); POTASSIUM 3.6 MMOL/L (3.5-5.1); SODIUM 138 MMOL/L (136-145)
[2019-02-14 19:11] LABS: INR 1.3 (0.9-1.1)
[2019-02-14] MEDS ORDERED: Octreotide Acetate 500 MCG in Sodium Chloride 499 ML IV SCH (19:15)
[2019-02-14] MEDS ORDERED: Piperacillin/Tazobactam 3.375 GM in NS 110 ML IVPB ONE (19:15)
[2019-02-14] MEDS ORDERED: SandoSTATIN 50mcg Inj IVP ONE (19:15)
[2019-02-14 19:21] LABS: ALANINE AMINOTRANSFERASE 22 U/L (12-78); ALBUMIN 2.4 G/DL (3.4-5.0); ALBUMIN/GLOBULIN RATIO 0.6 (1.0-2.7); ALKALINE PHOSPHATASE 335 U/L (46-116); ASPARTATE AMINO TRANSFERASE 89 U/L (15-37); BILIRUBIN,TOTAL 3.9 MG/DL (0.2-1.0)
[2019-02-14 19:23] LABS: BILIRUBIN,DIRECT 3.1 MG/DL (0.0-0.3)
--- NOTE | 2019-02-14 19:59 | General Progress Note ---
Assessment/Plan Problem List: (1) Anemia ICD Codes: D64.9 - Anemia, unspecified SNOMED: 008275673 (2) GI (gastrointestinal bleed) ICD Codes: K92.2 - Gastrointestinal hemorrhage, unspecified SNOMED: 27421604 (3) Abdominal pain ICD Codes: R10.9 - Unspecified abdominal pain SNOMED: 98392002 (4) Alcohol dependence ICD Codes: F10.20 - Alcohol dependence, uncomplicated SNOMED: 05792528 (5) Abnormal LFTs (liver function tests) ICD Codes: R94.5 - Abnormal results of liver function studies SNOMED: 977598685 Assessment/Plan: NPO IV protonix octreotide transfuse to keep HGB above 7 EGD in am Subjective ROS Limited/Unobtainable: Yes Allergies: Coded Allergies: No Known Allergies (Unverified , 04/26/18) Objective Last 24 Hour Vital Signs Date Time Temp Pulse Resp B/P (MAP) Pulse Ox O2 Delivery O2 Flow Rate FiO2 02/14/19 18:15 132 19 Room Air 02/14/19 18:15 98.4 135 13 119/71 100 Room Air 02/14/19 18:08 98.4 137 13 120/59 94 Room Air Laboratory Tests 02/14/19 18:30: White Blood Count 30.6*H, Red Blood Count 1.72L, Hemoglobin 4.0*L, Hematocrit 13.4L, Mean Corpuscular Volume 78L, Mean Corpuscular Hemoglobin 23.2L, Mean Corpuscular Hemoglobin Concent 29.7L, Red Cell Distribution Width 25.6H, Platelet Count 309, Mean Platelet Volume 5.5L, Neutrophils (%) (Auto) , Lymphocytes (%) (Auto) , Monocytes (%) (Auto) , Eosinophils (%) (Auto) , Basophils (%) (Auto) , Neutrophils % (Manual) [Pending], Lymphocytes % (Manual) [Pending], Platelet Estimate [Pending], Platelet Morphology [Pending], Prothrombin Time 13.1H, Prothromb Time International Ratio 1.3H, Activated Partial Thromboplast Time 24, Sodium Level 138, Potassium Level 3.6, Chloride Level 101, Carbon Dioxide Level 23, Anion Gap 14, Blood Urea Nitrogen 20H, Creatinine 0.9, Estimat Glomerular Filtration Rate > 60, Glucose Level 182H, Calcium Level 7.5L, Total Bilirubin 3.9H, Direct Bilirubin 3.1H, Aspartate Amino Transf (AST/SGOT) 89H, Alanine Aminotransferase (ALT/SGPT) 22, Alkaline Phosphatase 335H, Total Protein 6.2L, Albumin 2.4L, Globulin 3.8, Albumin/ Globulin Ratio 0.6L, Lipase 346 Height (Feet): 5 Height (Inches): 8.00 Weight (Pounds): 178 General Appearance: alert EENT: normal ENT inspection Neck: supple Cardiovascular: tachycardia Respiratory/Chest: decreased breath sounds Abdomen: normal bowel sounds, non tender, soft Luis Armando Victoria MD Feb 14, 2019 19:59
[2019-02-14] MEDS ORDERED: Pantoprazole 80 MG in NS 250 ML IV ONE (20:00)
[2019-02-14] MEDS ORDERED: Phytonadione 1 MG in D5W 55 ML IVPB ONE (20:30)
[2019-02-14 22:37] VITALS: BP 105/62
[2019-02-14 23:00] VITALS: BP 115/63
[2019-02-15] VITALS (27 sets, daily range): BP systolic 96–133; BP diastolic 52–92
[2019-02-15] MEDS: D5NS 1,000 ML IV SCH ×3 (00:17→17:16)
[2019-02-15] MEDS ORDERED: levETIRAcetam 1,000mg/NS100ml 100 ML IVPB ONE (04:00)
[2019-02-15 05:07] LABS: HEMATOCRIT 21.8 % (42.0-52.0); HEMOGLOBIN 7.4 G/DL (14.2-18.0); MEAN CORPUSCULAR VOLUME 82 FL (80-99); PLATELET COUNT 181 K/UL (150-450); RED BLOOD COUNT 2.65 M/UL (4.70-6.10); RED CELL DISTRIBUTION WIDTH 17.9 % (11.6-14.8)
[2019-02-15 05:08] LABS: WHITE BLOOD COUNT 23.6 K/UL (4.8-10.8)
[2019-02-15] MEDS: Octreotide Acetate 500 MCG in Sodium Chloride 499 ML IV SCH ×2 (05:42→17:15)
[2019-02-15 05:55] LABS: ALANINE AMINOTRANSFERASE 20 U/L (12-78); ALBUMIN 2.1 G/DL (3.4-5.0); ALBUMIN/GLOBULIN RATIO 0.6 (1.0-2.7); ALKALINE PHOSPHATASE 278 U/L (46-116); AMYLASE 119 U/L (25-115); ANION GAP 14 mmol/L (5-15); ASPARTATE AMINO TRANSFERASE 83 U/L (15-37); BILIRUBIN,TOTAL 3.6 MG/DL (0.2-1.0); BLOOD UREA NITROGEN 21 mg/dL (7-18); CALCIUM 7.2 MG/DL (8.5-10.1); CARBON DIOXIDE 20 MMOL/L (21-32); CHLORIDE 104 MMOL/L (98-107); CREATININE 1.2 MG/DL (0.55-1.30); POTASSIUM 3.8 MMOL/L (3.5-5.1); SODIUM 138 MMOL/L (136-145)
[2019-02-15 05:56] LABS: BILIRUBIN,DIRECT 2.8 MG/DL (0.0-0.3)
[2019-02-15] MEDS ORDERED: Pantoprazole 80 MG in NS 250 ML IV ONE (07:00)
[2019-02-15] MEDS: levETIRAcetam 1,000mg/NS100ml 100 ML IVPB SCH ×2 (09:24→21:00)
--- NOTE | 2019-02-15 09:45 | Anethesia Preoperative Eval ---
Anesthesia Pre-op PMH/ROS General Date of Evaluation: Feb 15, 2019 Time of Evaluation: 09:43 Anesthesiologist: Isaac ASA Score: ASA 3 Mallampati Score Class I : Soft palate, uvula, fauces, pillars visible Class II: Soft palate, uvula, fauces visible Class III: Soft palate, base of uvula visible Class IV: Only hard plate visible Mallampati Classification: Class II Surgeon: Julien Diagnosis: Upper GI bleed Surgical Procedure: EGD Anesthesia History: none Social History: alcohol use - h/o abuse Family History: no anesthesia problems Allergies: Coded Allergies: No Known Allergies (Unverified , 04/26/18) Medications: see eMAR Patient NPO?: Yes Past Medical History Cardiovascular: Denies: HTN, CAD, MD, valve dz, arrhythmia, other Pulmonary: Denies: asthma, COPD, DANIEL, other Gastrointestinal/Genitourinary: Reports: GERD, other - abdominal pain ; Denies: CRI, ESRD Neurologic/Psychiatric: Denies: dementia, CVA, depression/anxiety, TIA, other Endocrine: Denies: DM, hypothyroidism, steroids, other HEENT: Denies: cataract (L), cataract (R), glaucoma, TAKOTNA (L), TAKOTNA (R), other Hematology/Immune: Reports: anemia - acute posthemorrhagic; Denies: DVT, bleeding disorder, other Musculoskeletal/Integumentary: Denies: OA, RA, DJD, DDD, edema, other PMH Narrative: as above PSxH Narrative: See H&P Anesthesia Pre-op Phys. Exam Physician Exam Last Vital Signs Date Time Temp Pulse Resp B/P (MAP) Pulse Ox O2 Delivery O2 Flow Rate FiO2 02/15/19 06:00 94 19 111/68 (82) 100 02/15/19 04:00 98.8 02/15/19 04:00 Room Air Constitutional: NAD Neurologic: CN 2-12 intact Cardiovascular: RRR, no M/R/G Respiratory: CTA Gastrointestinal: S/NT/ND Airway Exam Mallampati Score: Class II MO: full Neck: flexible ROM: full Teeth: missing Dentures: no upper, no lower Anesthesia Pre-op A/P Labs Hematology Test 02/14/19 18:30 02/15/19 04:25 White Blood Count 30.6 K/UL (4.8-10.8) *H 23.6 K/UL (4.8-10.8) *H Red Blood Count 1.72 M/UL (4.70-6.10) L 2.65 M/UL (4.70-6.10) L Hemoglobin 4.0 G/DL (14.2-18.0) *L 7.4 G/DL (14.2-18.0) #L Hematocrit 13.4 % (42.0-52.0) L 21.8 % (42.0-52.0) #L Mean Corpuscular Volume 78 FL (80-99) L 82 FL (80-99) Mean Corpuscular Hemoglobin 23.2 PG (27.0-31.0) L 27.8 PG (27.0-31.0) Mean Corpuscular Hemoglobin Concent 29.7 G/DL (32.0-36.0) L 33.8 G/DL (32.0-36.0) Red Cell Distribution Width 25.6 % (11.6-14.8) H 17.9 % (11.6-14.8) H Platelet Count 309 K/UL (150-450) 181 K/UL (150-450) Mean Platelet Volume 5.5 FL (6.5-10.1) L 5.7 FL (6.5-10.1) L Neutrophils (%) (Auto) % (45.0-75.0) % (45.0-75.0) Lymphocytes (%) (Auto) % (20.0-45.0) % (20.0-45.0) Monocytes (%) (Auto) % (1.0-10.0) % (1.0-10.0) Eosinophils (%) (Auto) % (0.0-3.0) % (0.0-3.0) Basophils (%) (Auto) % (0.0-2.0) % (0.0-2.0) Differential Total Cells Counted 100 100 Neutrophils % (Manual) 88 % (45-75) H 89 % (45-75) H Lymphocytes % (Manual) 6 % (20-45) L 3 % (20-45) L Monocytes % (Manual) 5 % (1-10) 8 % (1-10) Eosinophils % (Manual) 0 % (0-3) 0 % (0-3) Basophils % (Manual) 1 % (0-2) 0 % (0-2) Band Neutrophils 0 % (0-8) 0 % (0-8) Platelet Estimate Adequate Adequate Platelet Morphology Normal Normal Polychromasia 2+ 2+ Hypochromasia 3+ 1+ Anisocytosis 3+ 1+ Coagulation Test 02/14/19 18:30 Prothrombin Time 13.1 SEC (9.30-11.50) H Prothromb Time International Ratio 1.3 (0.9-1.1) H Activated Partial Thromboplast Time 24 SEC (23-33) Chemistry Test 02/14/19 18:30 02/15/19 04:25 02/15/19 09:15 Sodium Level 138 MMOL/L (136-145) 138 MMOL/L (136-145) Potassium Level 3.6 MMOL/L (3.5-5.1) 3.8 MMOL/L (3.5-5.1) Chloride Level 101 MMOL/L (98-107) 104 MMOL/L (98-107) Carbon Dioxide Level 23 MMOL/L (21-32) 20 MMOL/L (21-32) L Anion Gap 14 mmol/L (5-15) 14 mmol/L (5-15) Blood Urea Nitrogen 20 mg/dL (7-18) H 21 mg/dL (7-18) H Creatinine 0.9 MG/DL (0.55-1.30) 1.2 MG/DL (0.55-1.30) Estimat Glomerular Filtration Rate > 60 mL/min (>60) > 60 mL/min (>60) Glucose Level 182 MG/DL (74-106) H 163 MG/DL (74-106) H Calcium Level 7.5 MG/DL (8.5-10.1) L 7.2 MG/DL (8.5-10.1) L Total Bilirubin 3.9 MG/DL (0.2-1.0) H 3.6 MG/DL (0.2-1.0) H Direct Bilirubin 3.1 MG/DL (0.0-0.3) H 2.8 MG/DL (0.0-0.3) H Aspartate Amino Transf (AST/SGOT) 89 U/L (15-37) H 83 U/L (15-37) H Alanine Aminotransferase (ALT/SGPT) 22 U/L (12-78) 20 U/L (12-78) Alkaline Phosphatase 335 U/L (46-116) H 278 U/L (46-116) H Total Protein 6.2 G/DL (6.4-8.2) L 5.6 G/DL (6.4-8.2) L Albumin 2.4 G/DL (3.4-5.0) L 2.1 G/DL (3.4-5.0) L Globulin 3.8 g/dL 3.5 g/dL Albumin/Globulin Ratio 0.6 (1.0-2.7) L 0.6 (1.0-2.7) L Lipase 346 U/L (73-393) 349 U/L (73-393) Amylase Level 119 U/L (25-115) H Lactic Acid Level Pending Arthur Gray MD Feb 15, 2019 09:45
[2019-02-15] MEDS ORDERED: NS 275ml ONE (10:42)
[2019-02-15] MEDS ORDERED: D5NS 1000ml IV ONE (10:42)
--- NOTE | 2019-02-15 11:24 | Pre-Procedure Note/Attestation ---
Pre-Procedure Note/Attestation Complete Prior to Procedure Planned Procedure: not applicable Procedure Narrative: egd Indications for Procedure Pre-Operative Diagnosis: gib Attestation I attest that I discussed the nature of the procedure; its benefits; risks and complications; and alternatives (and the risks and benefits of such alternatives ), prior to the procedure, with the patient (or the patient's legal branch sales and service representative). I attest that, if there was a reasonable possibility of needing a blood transfusion, the patient (or the patient's legal branch sales and service representative) was given the [facility] standardized written summary, pursuant to the [place]nn Blood Safety Act ([place] Health and Safety Code # 1645, as amended). I attest that I re-evaluated the patient just prior to the surgery and that there has been no change in the patient's H&P, except as documented below: Luis Armando Victoria MD Feb 15, 2019 11:24
[2019-02-15] MEDS ORDERED: fentaNYL 100 mcg/2 mL IV ONE (11:30)
[2019-02-15] MEDS ORDERED: Midazolam 2mg/2ml Inj ONE (11:30)
[2019-02-15] MEDS ORDERED: Propofol 200mg/20ml IV ONE (11:30)
--- NOTE | 2019-02-15 11:37 | Endoscopy Procedure Note ---
Endoscopy Procedure Note General Indication for Procedure: gib Procedures Performed: EGD Operative Findings/Diagnosis: esoph varices Specimen: yes Pt Tolerated Procedure Well: Yes Estimated Blood Loss: none Anesthesia Anesthesiologist: amanda Anesthesia: MAC Inserted Devices Implant(s) used?: No GI Core Measures 50 yrs or older w/o bx or poly: Not Applicable 10yrs. F/U not recommended: Not Applicable Luis Aramndo Victoria MD Feb 15, 2019 11:37
--- NOTE | 2019-02-15 11:49 | Immediate Post-Op Evaluation ---
Immediate Post-Op Evalulation Immediate Post-Op Evalulation Procedure: EGD Banding of esophagial varices Date of Evaluation: Feb 15, 2019 Time of Evaluation: 11:48 IV Fluids: 300 Blood Products: none Estimated Blood Loss: none Urinary Output: none Blood Pressure Systolic: 109 Blood Pressure Diastolic: 68 Pulse Rate: 86 Respiratory Rate: 20 O2 Sat by Pulse Oximetry: 99 Temperature (Fahrenheit): 98.2 Nausea: No Vomiting: No Complications none Patient Status: reacts, patent, none Hydration Status: adequate Arthur Gray MD Feb 15, 2019 11:49
[2019-02-15] MEDS ORDERED: Pantoprazole Inj IVP SCH (12:30)
--- NOTE | 2019-02-15 12:31 | 48 Hour Post Anesthesia Eval ---
Post Anesthesia Evaluation Procedure: EGD Banding of esophagial varices Date of Evaluation: Feb 15, 2019 Time of Evaluation: 12:30 Blood Pressure Systolic: 105 0: 56 Pulse Rate: 87 Respiratory Rate: 22 Temperature (Fahrenheit): 98.4 O2 Sat by Pulse Oximetry: 98 Airway: patent Nausea: No Vomiting: No Pain Intensity: 2 Hydration Status: adequate Cardiopulmonary Status: stable Mental Status/LOC: patient returned to baseline Follow-up Care/Observations: n/a Post-Anesthesia Complications: none Follow-up care needed: N/A Arthur Gray MD Feb 15, 2019 12:31
[2019-02-15] MEDS: cefTRIAXone 1 GM in D5W 55 ML IVPB SCH (14:11)
--- NOTE | 2019-02-15 14:11 | Diagnostic Imaging Report ---
Indications: Headache and generalized weakness Technique: Spiral acquisitions obtained through the brain. Angled axial and coronal 5 x 5 mm slices were reconstructed. Total dose length product 1298.23 mGycm. CTDI vol(s) 70.38 mGy. Dose reduction achieved using automated exposure control Comparison: 04/26/2018 Findings: No acute intracranial hemorrhage or edema, mass effect, nor midline shift. Normal kramer-white differentiation. Visualized orbits are unremarkable. The sinuses are clear. The calvarium is intact. No significant interim change Impression: Negative The CT scanner at [facility] is accredited by the [employer] and the scans are performed using protocols designed to limit radiation exposure to as low as reasonably achievable to attain images of sufficient resolution adequate for diagnostic evaluation.
--- NOTE | 2019-02-15 14:38 | Diagnostic Imaging Report ---
Indication: Abdominal pain Technique: Mcwilliams-scale and duplex images of the upper abdomen were obtained. Doppler interrogation of the pancreatic and hepatic vessels Comparison: 08/23/2018. Reference also made to MRI dated 09/03/2018 Findings: Gallbladder demonstrates multiple nonmobile wall adherent nonshadowing foci, the largest of these appears attached to the nondependent wall, measures 9 mm long axis dimension. Another is more sessile in appearance, attached to the nondependent wall, 15 by 5 mm. Similar-appearing abnormality was not evident previously, although a more exophytic more polypoid lesion was seen in this area No definite gallstones. Previously demonstrated nontumefactive sludge is no longer evident. No gallbladder wall thickening. Sonographic Victor's sign is negative. Sonographic Victro's sign is negative. Common bile duct measures 2 mm in diameter. No intrahepatic biliary ductal dilatation. Liver demonstrates diffusely increased echogenicity, consistent with diffuse hepatocellular disease, most likely fatty change. No focal abnormality Portal vein and hepatic veins are patent. Pancreas is unremarkable. The spleen is enlarged, measuring 13.2 cm long axis dimension. Left kidney measures 11.1 cm in length. Right kidney measures 11.7 cm length. Both kidneys demonstrate normal echogenicity. There is no hydronephrosis. No focal abnormality . Non-aneurysmal abdominal aorta . Impression: Multiple wall adherent nonmobile intraluminal areas of increased echogenicity within the gallbladder. Similar findings reported previously although configuration of the largest appears different currently. Main differential considerations are polyps versus tumefactive sludge Liver demonstrates diffusely increased echogenicity, consistent with diffuse hepatocellular disease, most likely fatty change. Splenomegaly
--- NOTE | 2019-02-15 15:30 | History and Physical Report ---
DATE OF ADMISSION: 02/14/2019 CHIEF COMPLAINT: GI bleed. HISTORY OF PRESENT ILLNESS: The patient is a 28-year-old male. He states he has no past medical history. He had multiple episodes of bright red blood vomiting and hematemesis. He denies any melena or bright red blood per rectum. He presented to the emergency room. His hemoglobin was 4. He had white count of 30,000 as well as elevated liver function tests. The patient does admit to a long history of drinking a pint of vodka for two to three years, three to four times a week, but he quit six months ago. On evaluation here, the patient is now status post 3 units of packed red blood cells and is admitted for further evaluation and care. PAST MEDICAL HISTORY: As above. PAST SURGICAL HISTORY: None. CURRENT MEDICATIONS: Include only melatonin and Tylenol as needed. FAMILY HISTORY: Significant for diabetes. SOCIAL HISTORY: Negative for tobacco or drugs. REVIEW OF SYSTEMS: Negative except for hematemesis. PHYSICAL EXAMINATION: VITAL SIGNS: Temperature 98.8, pulse 94, respirations 19, and blood pressure 111/68. GENERAL: The patient is well developed, in no apparent distress. HEART: Regular rate and rhythm. LUNGS: Clear. ABDOMEN: Soft. EXTREMITIES: Without clubbing, cyanosis, or edema. LABORATORY DATA: Sodium 138, potassium 3.6, BUN 20, creatinine 0.9. Total bilirubin 3.9, direct bilirubin 3.1, AST 89, and alkaline phosphatase 335. INR was 1.3. ASSESSMENT: This is a 28-year-old male admitted with complaints of GI bleed. PROBLEM LIST: 1. GI bleed. 2. Elevated liver function tests, rule out cirrhosis. 3. Leukocytosis, suspect stress reaction, cannot rule out sepsis. PLAN: Serial CBCs. IV proton-pump inhibitor. Octreotide. Endoscopy by GI. Check hepatitis panel and abdominal ultrasound. Guido Davis M.D. DR: BUCK JOB#: [id number] CC:
--- NOTE | 2019-02-15 17:00 | Progress Note ---
DATE: 02/15/2019 SUBJECTIVE: The patient suffered a seizure last night and hit his head in the bathroom. Subsequently, he had a short postictal period but was awake and interactive and at this time. He has received 3 units of packed red blood cells. An endoscopy is planned for this morning. OBJECTIVE: VITAL SIGNS: Blood pressure 118/61, pulse 88, and respirations 20. LUNGS: Clear. CARDIAC: Regular. Normal S1, S2. ABDOMEN: Soft with no focal tenderness. EXTREMITIES: There is no peripheral edema. NEUROLOGIC: Nonfocal at this time. LABORATORY DATA: Lactic acid 2.6. BUN 21 and creatinine 1.2. Potassium 3.8. AST and ALT are 83 and 20 respectively. Alkaline phosphatase 278. Albumin 2.1. Amylase 119. Lipase 349. White count is 23 and hemoglobin 7.4 with platelets 181,000. INR 1.3 yesterday. IMPRESSION: 1. Gastrointestinal bleeding. 2. History of esophageal varices. 3. Severe anemia. 4. Seizure. 5. Leukocytosis. 6. Possible aspiration. PLAN: 1. NPO. 2. Intravenous proton pump inhibitor. 3. Continue octreotide per GI. 4. Await esophagogastroduodenoscopy results. 5. Transfuse for further bleeding. 6. The patient has already been loaded with Keppra and that will be continued for the interim. 7. The CT scan of the brain and EEG are pending. Lg Ashton M.D. DR: KRYSTIN JOB#: [id number] CC:
--- NOTE | 2019-02-15 18:30 | Procedure Note ---
DATE OF PROCEDURE: 02/15/2019 SURGEON: Luis Armando Victoria M.D. REFERRING PHYSICIAN: Guido Davis M.D. PROCEDURE: Upper endoscopy with banding and biopsy. ANESTHESIA: Per Dr. Gray. INSTRUMENT: Olympus adult flexible upper endoscope. INDICATION: Upper GI bleeding. The procedure, risks, benefits, and possible consequences, including hemorrhage, aspiration, perforation and infection, and alternative treatments, were explained to the patient/legal guardian by Dr. Luis Armando Victoria and the patient/legal guardian understood and accepted these risks. DESCRIPTION OF PROCEDURE: After informed consent was obtained and the patient was adequately sedated, Olympus upper endoscope was advanced from the mouth into second portion of the duodenum and retroflexion was performed in the stomach. The patient had evidence of four columns of grade 4 distal esophageal varices. In the stomach, there was diffuse portal hypertensive gastropathy. No obvious gastric varices. Random biopsy from the gastric body was obtained for diagnosis. Then, the upper endoscope was retrieved, banding device was placed. Total of four bands were placed in the distal esophagus. The patient tolerated the procedure very well without any complication. SUMMARY OF FINDINGS: 1. Esophageal varices, status post banding x4. 2. Portal hypertensive gastropathy. RECOMMENDATIONS: Continue on octreotide drip. We will start tapering off tomorrow. Change Protonix drip to q.12 h. Keep the patient NPO for today. We will start liquid diet tomorrow and advance as tolerated. I want to thank Dr. Davis for this kind referral. Luis Armando Victoria M.D. DR: ROBIN JOB#: [id number] CC: Guido Davis M.D.
[2019-02-15] MEDS: Pantoprazole Inj IVP SCH (21:01)
[2019-02-16] VITALS (24 sets, daily range): BP systolic 98–126; BP diastolic 61–77
[2019-02-16] MEDS: Octreotide Acetate 500 MCG in Sodium Chloride 499 ML IV SCH ×2 (02:00→05:00)
[2019-02-16] MEDS: D5NS 1,000 ML IV SCH ×3 (02:17→23:06)
[2019-02-16 06:32] LABS: BASOPHILS % (AUTO) 0.7 % (0.0-2.0); EOSINOPHILS % (AUTO) 1.9 % (0.0-3.0); HEMATOCRIT 28.4 % (42.0-52.0); HEMOGLOBIN 9.5 G/DL (14.2-18.0); LYMPHOCYTES % (AUTO) 8.7 % (20.0-45.0); MEAN CORPUSCULAR VOLUME 85 FL (80-99); MONOCYTES % (AUTO) 4.9 % (1.0-10.0); NEUTROPHILS % (AUTO) 83.8 % (45.0-75.0); PLATELET COUNT 103 K/UL (150-450); RED BLOOD COUNT 3.35 M/UL (4.70-6.10); RED CELL DISTRIBUTION WIDTH 17.7 % (11.6-14.8); WHITE BLOOD COUNT 14.3 K/UL (4.8-10.8)
[2019-02-16] MEDS: levETIRAcetam 1,000mg/NS100ml 100 ML IVPB SCH ×2 (08:59→20:28)
[2019-02-16] MEDS: Pantoprazole Inj IVP SCH ×2 (09:02→20:28)
--- NOTE | 2019-02-16 11:20 | Diagnostic Imaging Report ---
Indication: Dyspnea Comparison: 09/01/2018 A single view chest radiograph was obtained. Findings: Cardiomediastinal appearance is within normal limits for age. The lungs are clear. Pulmonary vascularity is appropriate. The diaphragmatic contour is smooth and costophrenic angles are sharp. No pleural effusions are identified. The bones are unremarkable. Impression: No acute findings
--- NOTE | 2019-02-16 12:28 | GI Progress Note ---
Assessment/Plan Problems: (1) Abdominal pain ICD Codes: R10.9 - Unspecified abdominal pain SNOMED: 74624197 (2) Abnormal LFTs (liver function tests) ICD Codes: R94.5 - Abnormal results of liver function studies SNOMED: 839254510 (3) GI (gastrointestinal bleed) ICD Codes: K92.2 - Gastrointestinal hemorrhage, unspecified SNOMED: 73082915 (4) Anemia ICD Codes: D64.9 - Anemia, unspecified SNOMED: 918948964 (5) Alcohol dependence ICD Codes: F10.20 - Alcohol dependence, uncomplicated SNOMED: 30519021 Status: progressing Status Narrative Discussed with Dr. Victoria. Assessment/Plan SUMMARY OF FINDINGS: 1. Esophageal varices, status post banding x4. 2. Portal hypertensive gastropathy. RECOMMENDATIONS: Taper octreotide drip, will dc tomorrow. ppi BID advance diet as tolerated prn transfusions will need repeat EGD x 1 month after discharge The patient was seen and examined at bedside and all new and available data was reviewed in the patients chart. I agree with the above findings, impression and plan. (Patient seen earlier today. Signature stamp does not reflect patient encounter time.). - Luis Armando Victoria MD Subjective Gastrointestinal/Abdominal: Reports: no symptoms Objective Last 24 Hour Vital Signs Date Time Temp Pulse Resp B/P (MAP) Pulse Ox O2 Delivery O2 Flow Rate FiO2 02/16/19 11:00 55 18 116/76 (89) 100 02/16/19 10:00 61 18 111/70 (84) 02/16/19 09:00 98.0 56 18 110/69 (83) 02/16/19 08:00 Room Air 02/16/19 08:00 55 16 113/62 (79) 99 02/16/19 08:00 55 02/16/19 07:00 116 14 108/72 (84) 100 02/16/19 07:00 68 16 100/70 (80) 100 02/16/19 06:00 68 16 115/66 (82) 100 02/16/19 05:00 74 21 105/70 (82) 100 02/16/19 04:00 70 02/16/19 04:00 98.8 70 19 108/65 (79) 100 02/16/19 04:00 Room Air 02/16/19 03:00 78 20 115/68 (84) 100 02/16/19 02:00 67 13 98/66 (77) 100 02/16/19 01:00 72 15 117/69 (85) 99 02/16/19 00:00 Room Air 02/16/19 00:00 74 02/16/19 00:00 66 18 122/70 (87) 100 02/15/19 23:00 67 16 98/62 (74) 100 02/15/19 22:00 70 16 115/92 (100) 100 02/15/19 21:00 65 16 99/52 (68) 100 02/15/19 20:00 98.8 75 14 113/67 (82) 99 02/15/19 20:00 75 02/15/19 20:00 Room Air 02/15/19 19:00 72 17 110/65 (80) 100 02/15/19 18:00 72 17 110/65 (80) 100 02/15/19 17:00 73 14 108/61 (77) 99 02/15/19 16:00 70 02/15/19 16:00 98.3 70 14 108/59 (75) 100 02/15/19 16:00 Room Air 02/15/19 15:00 72 14 115/61 (79) 100 02/15/19 14:00 78 11 119/63 (81) 100 02/15/19 13:00 97.8 74 13 96/55 (69) 100 02/15/19 12:31 87 22 98 Intake and Output 02/15/19 02/16/19 18:59 06:59 Intake Total 2270 ml 2125 ml Output Total 670 ml 650 ml Balance 1600 ml 1475 ml Intake Oral 160 ml 0 ml IV Total 2110 ml 1850 ml Blood Product 275 ml Output Urine Total 670 ml 650 ml Laboratory Tests Test 02/15/19 15:45 02/16/19 06:15 Lactic Acid Level 1.60 mmol/L (0.66-2.22) White Blood Count 14.3 K/UL (4.8-10.8) H Red Blood Count 3.35 M/UL (4.70-6.10) L Hemoglobin 9.5 G/DL (14.2-18.0) L Hematocrit 28.4 % (42.0-52.0) #L Mean Corpuscular Volume 85 FL (80-99) Mean Corpuscular Hemoglobin 28.3 PG (27.0-31.0) Mean Corpuscular Hemoglobin Concent 33.4 G/DL (32.0-36.0) Red Cell Distribution Width 17.7 % (11.6-14.8) H Platelet Count 103 K/UL (150-450) L Mean Platelet Volume 6.8 FL (6.5-10.1) Neutrophils (%) (Auto) 83.8 % (45.0-75.0) H Lymphocytes (%) (Auto) 8.7 % (20.0-45.0) L Monocytes (%) (Auto) 4.9 % (1.0-10.0) Eosinophils (%) (Auto) 1.9 % (0.0-3.0) Basophils (%) (Auto) 0.7 % (0.0-2.0) Height (Feet): 5 Height (Inches): 8.00 Weight (Pounds): 156 General Appearance: WD/WN, no apparent distress, alert Cardiovascular: normal rate Respiratory/Chest: normal breath sounds, no respiratory distress Abdominal Exam: normal bowel sounds, non tender, soft Extremities: normal range of motion, non-tender Juliette Diop NP Feb 16, 2019 12:28
[2019-02-16] MEDS ORDERED: Octreotide Acetate 500 MCG in Sodium Chloride 499 ML IV SCH ×2 (13:30→23:30)
[2019-02-16] MEDS: cefTRIAXone 1 GM in D5W 55 ML IVPB SCH (14:16)
--- NOTE | 2019-02-16 14:31 | General Progress Note ---
Assessment/Plan Status: progressing Assessment/Plan: serial cbc PPI rx hep serologies transfer to tele Subjective ROS Limited/Unobtainable: No Constitutional: Reports: malaise, weakness HEENT: Reports: no symptoms Cardiovascular: Reports: no symptoms Respiratory: Reports: no symptoms Gastrointestinal/Abdominal: Reports: no symptoms Genitourinary: Reports: no symptoms Neurologic/Psychiatric: Reports: no symptoms Endocrine: Reports: no symptoms Hematologic/Lymphatic: Reports: anemia Allergies: Coded Allergies: No Known Allergies (Unverified , 04/26/18) All Systems: reviewed and negative except above Subjective s/p banding. no bleeding. wants to eat. Objective Last 24 Hour Vital Signs Date Time Temp Pulse Resp B/P (MAP) Pulse Ox O2 Delivery O2 Flow Rate FiO2 02/16/19 12:00 53 15 110/71 (84) 99 02/16/19 12:00 Room Air 02/16/19 11:00 55 18 116/76 (89) 100 02/16/19 10:00 61 18 111/70 (84) 02/16/19 09:00 98.0 56 18 110/69 (83) 02/16/19 08:00 Room Air 02/16/19 08:00 55 16 113/62 (79) 99 02/16/19 08:00 55 02/16/19 07:00 116 14 108/72 (84) 100 02/16/19 07:00 68 16 100/70 (80) 100 02/16/19 06:00 68 16 115/66 (82) 100 02/16/19 05:00 74 21 105/70 (82) 100 02/16/19 04:00 70 02/16/19 04:00 98.8 70 19 108/65 (79) 100 02/16/19 04:00 Room Air 02/16/19 03:00 78 20 115/68 (84) 100 02/16/19 02:00 67 13 98/66 (77) 100 02/16/19 01:00 72 15 117/69 (85) 99 02/16/19 00:00 Room Air 02/16/19 00:00 74 02/16/19 00:00 66 18 122/70 (87) 100 02/15/19 23:00 67 16 98/62 (74) 100 02/15/19 22:00 70 16 115/92 (100) 100 02/15/19 21:00 65 16 99/52 (68) 100 02/15/19 20:00 98.8 75 14 113/67 (82) 99 02/15/19 20:00 75 02/15/19 20:00 Room Air 02/15/19 19:00 72 17 110/65 (80) 100 02/15/19 18:00 72 17 110/65 (80) 100 02/15/19 17:00 73 14 108/61 (77) 99 02/15/19 16:00 70 02/15/19 16:00 98.3 70 14 108/59 (75) 100 02/15/19 16:00 Room Air 02/15/19 15:00 72 14 115/61 (79) 100 Intake and Output 02/15/19 02/16/19 19:00 07:00 Intake Total 2420 ml 2125 ml Output Total 670 ml 900 ml Balance 1750 ml 1225 ml Intake Oral 160 ml 0 ml IV Total 2260 ml 1850 ml Blood Product 275 ml Output Urine Total 670 ml 900 ml Laboratory Tests 02/15/19 15:45: Lactic Acid Level 1.60 02/16/19 06:15: White Blood Count 14.3H, Red Blood Count 3.35L, Hemoglobin 9.5L, Hematocrit 28.4 #L, Mean Corpuscular Volume 85, Mean Corpuscular Hemoglobin 28.3, Mean Corpuscular Hemoglobin Concent 33.4, Red Cell Distribution Width 17.7H, Platelet Count 103L, Mean Platelet Volume 6.8, Neutrophils (%) (Auto) 83.8H, Lymphocytes (%) (Auto) 8.7L, Monocytes (%) (Auto) 4.9, Eosinophils (%) (Auto) 1.9, Basophils (%) (Auto) 0.7 Height (Feet): 5 Height (Inches): 8.00 Weight (Pounds): 156 General Appearance: WD/WN, alert Respiratory/Chest: lungs clear Abdomen: normal bowel sounds, non tender, soft Edema: no edema noted Arm (L), no edema noted Arm (R), no edema noted Leg (L), no edema noted Leg (R), no edema noted Pedal (L), no edema noted Pedal (R), no edema noted Generalized Neurologic: material controller II-XII grossly normal Uomoto,Guido M. MD Feb 16, 2019 14:31
--- NOTE | 2019-02-16 16:45 | Consultation ---
DATE OF CONSULTATION: 02/16/2019 INFECTIOUS DISEASE CONSULTATION CONSULTING PHYSICIAN: Navid Sanders M.D. REFERRING PHYSICIAN: gL Ashton M.D. REASON FOR CONSULTATION: Leukocytosis. HISTORY OF PRESENT ILLNESS: This is a 28-year-old male with history of alcohol use, who came in because he was vomiting blood and had hematemesis. He had a hemoglobin of 4 and was found to have a leukocytosis of 30,000. He says he quit six months ago. He underwent an EGD. He was found to have esophageal varices and he underwent banding. An Infectious Disease consultation has been obtained for leukocytosis. PAST MEDICAL HISTORY: No history of diabetes, hypertension, asthma, or any other medical illnesses. SOCIAL HISTORY: He does not smoke. He used to drink alcohol heavily until six months ago. No history of drug use. FAMILY HISTORY: Positive for diabetes. REVIEW OF SYSTEMS: RESPIRATORY: No fever, chills, cough, shortness of breath, or chest pain. CARDIAC: No chest pain. No palpitations. No dizziness. No syncope. GASTROINTESTINAL: He had nausea and vomiting with blood. No abdominal pain or diarrhea. He denies eating any poorly cooked food or any recent travel. MEDICATIONS: As an inpatient, he is on Protonix, ceftriaxone, levetiracetam, octreotide, and dextrose. ALLERGIES: No known drug allergies. PHYSICAL EXAMINATION: VITAL SIGNS: Temperature of 98.8, T-max 98.8, pulse 55, respiratory rate 16, and blood pressure 113/62. O2 saturation of 99%. HEENT: Pupils are equally reactive to light and accommodation. Mouth appears clean without thrush. NECK: Supple. No adenopathy. No JVD. CARDIOVASCULAR: Regular rate and rhythm. No murmurs. LUNGS: Clear to auscultation bilaterally. No crackles. No wheezes. ABDOMEN: Soft and nontender. No organomegaly. EXTREMITIES: No cyanosis, no clubbing, no edema. LABORATORY DATA: 02/14/2019, white count is 30. White count of 14.3 today, hemoglobin 9.5, hematocrit , MCV 85, platelet count 103, neutrophils 83%. Sodium 138, potassium 3.8, chloride 104, bicarb 20, BUN 21, and creatinine 1.2. Glucose 163. Calcium 7.2. Total bilirubin 3.6, direct bilirubin 2.8. AST 83, ALT 20, and alkaline phosphatase 278. Total protein 5.6, albumin 2.1. Amylase 119, lipase 349. Hepatitis A antibodies negative. Hepatitis B surface antigen is negative. Hepatitis B surface antibody is less than 3.1. Hepatitis C is negative. Abdominal ultrasound showing multiple wall adherent intraluminal areas of increased echogenicity within the gallbladder, possible polyps versus sludge, diffuse hepatocellular disease, most likely fatty change. Splenomegaly noted. CT head was unremarkable. ASSESSMENT: This is a 28-year-old gentleman with history of heavy alcohol use, comes in with nausea and vomiting with blood and was found to have esophageal varices and had undergone banding. He was found have leukocytosis, which could be secondary to gastrointestinal bleeding. We would also like to rule out pneumonia as a possibility or urinary tract infection. PLAN: 1. Continue ceftriaxone for now. 2. We will order urinalysis and urine culture. 3. We will order a chest x-ray. 4. We will follow up cultures. I would like to thank Dr. Ashton for this consultation. Navid Sanders M.D. DR: RADHA JOB#: [id number] CC:
[2019-02-16 16:53] LABS: APPEARANCE,URINE CLEAR; BILIRUBIN, URINE 2+ (NEGATIVE); COLOR,URINE BROWN; GLUCOSE, URINE (UA) NEGATIVE (NEGATIVE); KETONES,URINE NEGATIVE (NEGATIVE); LEUKOCYTE ESTERASE ,URINE 1+ (NEGATIVE); NITRITE,URINE NEGATIVE (NEGATIVE); PH,URINE 7 (4.5-8.0); PROTEIN,URINE NEGATIVE (NEGATIVE); UROBILINOGEN,URINE 4 MG/DL (0.0-1.0)
[2019-02-16] MEDS ORDERED: D5NS 1,000 ML IV SCH (23:30)
[2019-02-17] VITALS: BP 114/74
--- NOTE | 2019-02-17 00:45 | Electroencephalogram ---
REQUESTING PHYSICIAN: Guido Davis M.D. READING PHYSICIAN: Fer Hameed M.D. DATE OF TRACIN02/16/2019 HISTORY: This EEG was performed on a 28-year-old gentleman with a history of alcohol dependence and a gastrointestinal bleed, and in addition an alteration in his mental state. The purpose of this EEG was to evaluate the patient for the degree and type of cerebral dysfunction and to exclude ongoing ictal or interictal phenomena. TECHNICAL NOTE: This EEG was performed on a [employer] with electrodes placed on the scalp according to the International 10-20 system. [id number] and [id number]-yp-[id number] montages were used. The EEG was technically satisfactory and was performed in the awake and drowsy states. OBSERVATIONS: In the best awake state, the background activity consisted of 8.5-9 Hz posteriorly predominant well-developed alpha waveforms, which attenuated on eye opening. Drowsiness was characterized by dissolution of the alpha rhythm and the appearance of slow frequencies in the 5-6 Hz theta range. No focal abnormalities or epileptiform discharges were seen. IMPRESSION: Normal awake and drowsy EEG. COMMENT: A normal EEG does not rule out a seizure disorder. Fer Hameed M.D., M.S.P.H. DR: JUAN JOB#: [id number] MTDMarisol
[2019-02-17 04:00] VITALS: BP_SYST 107; BP_SYST 139; BP_DIAS 62; BP_DIAS 68
[2019-02-17 07:19] LABS: BASOPHILS % (AUTO) 0.6 % (0.0-2.0); EOSINOPHILS % (AUTO) 2.3 % (0.0-3.0); HEMATOCRIT 27.6 % (42.0-52.0); HEMOGLOBIN 9.1 G/DL (14.2-18.0); LYMPHOCYTES % (AUTO) 8.8 % (20.0-45.0); MEAN CORPUSCULAR VOLUME 86 FL (80-99); MONOCYTES % (AUTO) 5.1 % (1.0-10.0); NEUTROPHILS % (AUTO) 83.1 % (45.0-75.0); PLATELET COUNT 111 K/UL (150-450); RED BLOOD COUNT 3.22 M/UL (4.70-6.10); RED CELL DISTRIBUTION WIDTH 17.7 % (11.6-14.8); WHITE BLOOD COUNT 13.3 K/UL (4.8-10.8)
[2019-02-17 07:26] LABS: ALANINE AMINOTRANSFERASE 25 U/L (12-78); ALBUMIN/GLOBULIN RATIO 0.6 (1.0-2.7); ALKALINE PHOSPHATASE 240 U/L (46-116); ANION GAP 10 mmol/L (5-15); ASPARTATE AMINO TRANSFERASE 109 U/L (15-37); BILIRUBIN,TOTAL 5.5 MG/DL (0.2-1.0); BLOOD UREA NITROGEN 5 mg/dL (7-18); CARBON DIOXIDE 21 MMOL/L (21-32); CHLORIDE 104 MMOL/L (98-107); CREATININE 0.7 MG/DL (0.55-1.30); POTASSIUM 3.2 MMOL/L (3.5-5.1); SODIUM 135 MMOL/L (136-145)
[2019-02-17 07:27] LABS: % IRON SATURATION 6 % (15-50); BILIRUBIN,DIRECT 4.5 MG/DL (0.0-0.3); IRON 18 ug/dL (50-175); TOTAL IRON BINDING CAPACITY 307 ug/dL (250-450)
[2019-02-17 08:00] VITALS: BP 110/75
--- NOTE | 2019-02-17 08:00 | Progress Note ---
DATE: 02/16/2019 CARDIOLOGY PROGRESS NOTE SUBJECTIVE: The patient is status post banding of esophageal varices yesterday. No new seizure activity. EEG was negative. CAT scan of the brain was normal. OBJECTIVE: VITAL SIGNS: Reveals blood pressure 121/77, pulse 68, and respirations 19. Afebrile. LUNGS: Clear. CARDIAC: Regular. No murmur. ABDOMEN: Soft. No distention or tenderness. EXTREMITIES: Without edema. LABORATORY DATA: White count 14 and hemoglobin 9.5. Lactic acid level has normalized. IMPRESSION: 1. No signs of structural or cerebrovascular disease. 2. Single seizure was likely due to severe anemia and hypoperfusion. 3. Gastrointestinal bleeding due to gastric varices. 4. Alcoholic liver disease. 5. Lactic acidosis, resolved. 6. Severe anemia, resolved with transfusion. PLAN: 1. Discontinue Keppra and observe. 2. Monitor hemoglobin. 3. Cardiac monitoring. 4. Advance diet with caution. Lg Ashton M.D. DR: KRYSTIN JOB#: [id number] CC:
--- NOTE | 2019-02-17 08:15 | Consultation ---
DATE OF CONSULTATION: 02/14/2019 CARDIOLOGY CONSULT CRITICAL CARE HISTORY OF PRESENT ILLNESS: This is a 28-year-old male, who has a history of alcoholism and alcoholic liver disease. He presented to the emergency room with weakness and hematemesis. Blood pressure was tenuous. Heart rate was over 130. Cardiology consultation and evaluation was requested. Intensive care unit care was initiated as well. PAST MEDICAL HISTORY: History of pancreatitis and alcoholic liver disease. MEDICATIONS: Reviewed. Prior records noted. ALLERGIES: None. PHYSICAL EXAMINATION: GENERAL: Ill-appearing. HEENT: Conjunctiva pink. Sclerae are anicteric. Oropharynx clear. NECK: Supple. LUNGS: Clear. CARDIAC: Regular rhythm. Rapid rate. Normal S1, S2. ABDOMEN: Softly distended and tender. There is no guarding, rebound, or ascites. EXTREMITIES: No clubbing or cyanosis. No edema. NEUROLOGIC: No asterixis. LABORATORY AND DIAGNOSTIC DATA: EKG, sinus tachycardia. Hemoglobin is in the range of 4. Lipase is normal at 346. IMPRESSION: 1. Acute gastrointestinal bleeding. 2. Hypovolemic shock. 3. Sinus tachycardia. 4. Severe anemia. 5. Critical and guarded. PLAN: 1. Intensive care unit monitoring. 2. Emergent blood transfusions. 3. Nasal oxygen. 4. Volume resuscitation. 5. Proton pump inhibitor. 6. Octreotide infusion per GI. 7. No anticoagulants. 8. Withdrawal precautions. 9. Vitamin supplementation to follow. Lg Ashton M.D. DR: KRYSTIN JOB#: [id number] CC:
--- NOTE | 2019-02-17 08:18 | General Progress Note ---
Assessment/Plan Status: progressing Assessment/Plan: monitor for bleeding PPI dc octreotide drip dc planning Subjective ROS Limited/Unobtainable: No Constitutional: Reports: malaise, weakness HEENT: Reports: no symptoms Cardiovascular: Reports: no symptoms Respiratory: Reports: no symptoms Gastrointestinal/Abdominal: Reports: no symptoms Genitourinary: Reports: no symptoms Neurologic/Psychiatric: Reports: no symptoms Endocrine: Reports: no symptoms Hematologic/Lymphatic: Reports: anemia Allergies: Coded Allergies: No Known Allergies (Unverified , 04/26/18) All Systems: reviewed and negative except above Subjective no bleeding. no complaints. hgb stable Objective Last 24 Hour Vital Signs Date Time Temp Pulse Resp B/P (MAP) Pulse Ox O2 Delivery O2 Flow Rate FiO2 02/17/19 04:00 99.0 76 18 107/68 (81) 97 02/17/19 04:00 61 02/17/19 00:00 99.2 78 18 114/74 (87) 99 02/17/19 00:00 85 02/17/19 00:00 Room Air 02/16/19 23:00 65 19 120/68 (85) 97 02/16/19 22:00 71 19 118/73 (88) 97 02/16/19 21:00 98.4 68 19 121/77 (92) 97 02/16/19 20:00 Room Air 02/16/19 20:00 70 02/16/19 20:00 68 19 115/68 (84) 97 02/16/19 19:00 60 19 126/68 (87) 97 02/16/19 18:00 98.5 73 20 106/61 (76) 94 02/16/19 17:00 58 16 114/73 (87) 100 02/16/19 16:00 60 16 113/66 (82) 100 02/16/19 16:00 68 02/16/19 16:00 Room Air 02/16/19 15:00 66 17 117/75 (89) 100 02/16/19 14:00 65 16 112/68 (83) 100 02/16/19 13:00 68 16 104/62 (76) 99 02/16/19 12:00 53 15 110/71 (84) 99 02/16/19 12:00 Room Air 02/16/19 12:00 60 02/16/19 11:00 55 18 116/76 (89) 100 02/16/19 10:00 61 18 111/70 (84) 02/16/19 09:00 98.0 56 18 110/69 (83) Intake and Output 02/16/19 02/17/19 19:00 07:00 Intake Total 3130 ml 1020 ml Output Total 2350 ml 350 ml Balance 780 ml 670 ml Intake Oral 1500 ml 420 ml IV Total 1630 ml 600 ml Output Urine Total 2350 ml 350 ml # Voids 2 # Bowel Movements 1 3 Laboratory Tests 02/16/19 16:30: Urine Color Brown, Urine Appearance Clear, Urine pH 7, Urine Specific [place] 1.005, Urine Protein Negative, Urine Glucose (UA) Negative, Urine Ketones Negative, Urine Blood Negative, Urine Nitrite Negative, Urine Bilirubin 2+H, Urine Ictotest Positive, Urine Urobilinogen 4H, Urine Leukocyte Esterase 1+H, Urine RBC 0-2H, Urine WBC 2-4, Urine Squamous Epithelial Cells None, Urine Bacteria Few 02/17/19 06:35: White Blood Count 13.3H, Red Blood Count 3.22L, Hemoglobin 9.1L, Hematocrit 27.6L, Mean Corpuscular Volume 86, Mean Corpuscular Hemoglobin 28.3, Mean Corpuscular Hemoglobin Concent 33.0, Red Cell Distribution Width 17.7H, Platelet Count 111L, Mean Platelet Volume 6.9, Neutrophils (%) (Auto) 83.1H, Lymphocytes (%) (Auto) 8.8L, Monocytes (%) (Auto) 5.1, Eosinophils (%) (Auto) 2.3, Basophils (%) (Auto) 0.6, Sodium Level 135L, Potassium Level 3.2L, Chloride Level 104, Carbon Dioxide Level 21, Anion Gap 10, Blood Urea Nitrogen 5L, Creatinine 0.7, Estimat Glomerular Filtration Rate > 60, Glucose Level 132H , Calcium Level 7.0L, Iron Level 18L, Total Iron Binding Capacity 307, Percent Iron Saturation 6L, Unsaturated Iron Binding 289, Total Bilirubin 5.5H, Direct Bilirubin 4.5H, Aspartate Amino Transf (AST/SGOT) 109H, Alanine Aminotransferase (ALT/SGPT) 25, Alkaline Phosphatase 240H, Total Protein 5.4L, Albumin 2.0L, Globulin 3.4, Albumin/Globulin Ratio 0.6L Height (Feet): 5 Height (Inches): 8.00 Weight (Pounds): 165 General Appearance: WD/WN, alert Neck: supple Cardiovascular: normal rate, regular rhythm Respiratory/Chest: chest wall non-tender, lungs clear, normal breath sounds Abdomen: normal bowel sounds, non tender, soft Edema: no edema noted Arm (L), no edema noted Arm (R), no edema noted Leg (L), no edema noted Leg (R), no edema noted Pedal (L), no edema noted Pedal (R), no edema noted Generalized uGido Davis MD February 17, 2019 08:18
[2019-02-17] MEDS ORDERED: Octreotide Acetate 500 MCG in Sodium Chloride 499 ML IV SCH (09:00)
[2019-02-17] MEDS ORDERED: levETIRAcetam 1,000mg/NS100ml 100 ML IVPB SCH (09:00)
[2019-02-17] MEDS: Pantoprazole Inj IVP SCH ×2 (09:13→20:46)
--- NOTE | 2019-02-17 10:25 | GI Progress Note ---
Assessment/Plan Problems: (1) Abdominal pain ICD Codes: R10.9 - Unspecified abdominal pain SNOMED: 93718970 (2) Abnormal LFTs (liver function tests) ICD Codes: R94.5 - Abnormal results of liver function studies SNOMED: 182848242 (3) GI (gastrointestinal bleed) ICD Codes: K92.2 - Gastrointestinal hemorrhage, unspecified SNOMED: 89286791 (4) Anemia ICD Codes: D64.9 - Anemia, unspecified SNOMED: 555509477 (5) Alcohol dependence ICD Codes: F10.20 - Alcohol dependence, uncomplicated SNOMED: 69561459 Status: stable Status Narrative Discussed with Dr. Victoria Assessment/Plan SUMMARY OF FINDINGS: 1. Esophageal varices, status post banding x4. 2. Portal hypertensive gastropathy. RECOMMENDATIONS: DC octreotide ppi BID advance diet as tolerated prn transfusions will need repeat EGD x 1 month after discharge The patient was seen and examined at bedside and all new and available data was reviewed in the patients chart. I agree with the above findings, impression and plan. (Patient seen earlier today. Signature stamp does not reflect patient encounter time.). - Luis Armando Victoria MD Subjective Gastrointestinal/Abdominal: Reports: no symptoms Objective Last 24 Hour Vital Signs Date Time Temp Pulse Resp B/P (MAP) Pulse Ox O2 Delivery O2 Flow Rate FiO2 02/17/19 04:00 99.0 76 18 107/68 (81) 97 02/17/19 04:00 61 02/17/19 00:00 99.2 78 18 114/74 (87) 99 02/17/19 00:00 85 02/17/19 00:00 Room Air 02/16/19 23:00 65 19 120/68 (85) 97 02/16/19 22:00 71 19 118/73 (88) 97 02/16/19 21:00 98.4 68 19 121/77 (92) 97 02/16/19 20:00 Room Air 02/16/19 20:00 70 02/16/19 20:00 68 19 115/68 (84) 97 02/16/19 19:00 60 19 126/68 (87) 97 02/16/19 18:00 98.5 73 20 106/61 (76) 94 02/16/19 17:00 58 16 114/73 (87) 100 02/16/19 16:00 60 16 113/66 (82) 100 02/16/19 16:00 68 02/16/19 16:00 Room Air 02/16/19 15:00 66 17 117/75 (89) 100 02/16/19 14:00 65 16 112/68 (83) 100 02/16/19 13:00 68 16 104/62 (76) 99 02/16/19 12:00 53 15 110/71 (84) 99 02/16/19 12:00 Room Air 02/16/19 12:00 60 02/16/19 11:00 55 18 116/76 (89) 100 Intake and Output 02/16/19 02/17/19 18:59 06:59 Intake Total 3155 ml 1145 ml Output Total 2200 ml 750 ml Balance 955 ml 395 ml Intake Oral 1500 ml 420 ml IV Total 1655 ml 725 ml Output Urine Total 2200 ml 750 ml # Voids 2 # Bowel Movements 1 3 Laboratory Tests Test 02/16/19 16:30 02/17/19 06:35 Urine Color Brown Urine Appearance Clear Urine pH 7 (4.5-8.0) Urine Specific [place] 1.005 (1.005-1.035) Urine Protein Negative (NEGATIVE) Urine Glucose (UA) Negative (NEGATIVE) Urine Ketones Negative (NEGATIVE) Urine Blood Negative (NEGATIVE) Urine Nitrite Negative (NEGATIVE) Urine Bilirubin 2+ (NEGATIVE) H Urine Ictotest Positive (NEGATIVE) Urine Urobilinogen 4 MG/DL (0.0-1.0) H Urine Leukocyte Esterase 1+ (NEGATIVE) H Urine RBC 0-2 /HPF (0 - 0) H Urine WBC 2-4 /HPF (0 - 0) Urine Squamous Epithelial Cells None /LPF (NONE/OCC) Urine Bacteria Few /HPF (NONE) White Blood Count 13.3 K/UL (4.8-10.8) H Red Blood Count 3.22 M/UL (4.70-6.10) L Hemoglobin 9.1 G/DL (14.2-18.0) L Hematocrit 27.6 % (42.0-52.0) L Mean Corpuscular Volume 86 FL (80-99) Mean Corpuscular Hemoglobin 28.3 PG (27.0-31.0) Mean Corpuscular Hemoglobin Concent 33.0 G/DL (32.0-36.0) Red Cell Distribution Width 17.7 % (11.6-14.8) H Platelet Count 111 K/UL (150-450) L Mean Platelet Volume 6.9 FL (6.5-10.1) Neutrophils (%) (Auto) 83.1 % (45.0-75.0) H Lymphocytes (%) (Auto) 8.8 % (20.0-45.0) L Monocytes (%) (Auto) 5.1 % (1.0-10.0) Eosinophils (%) (Auto) 2.3 % (0.0-3.0) Basophils (%) (Auto) 0.6 % (0.0-2.0) Sodium Level 135 MMOL/L (136-145) L Potassium Level 3.2 MMOL/L (3.5-5.1) L Chloride Level 104 MMOL/L (98-107) Carbon Dioxide Level 21 MMOL/L (21-32) Anion Gap 10 mmol/L (5-15) Blood Urea Nitrogen 5 mg/dL (7-18) L Creatinine 0.7 MG/DL (0.55-1.30) Estimat Glomerular Filtration Rate > 60 mL/min (>60) Glucose Level 132 MG/DL (74-106) H Calcium Level 7.0 MG/DL (8.5-10.1) L Iron Level 18 ug/dL (50-175) L Total Iron Binding Capacity 307 ug/dL (250-450) Percent Iron Saturation 6 % (15-50) L Unsaturated Iron Binding 289 ug/dL (112-346) Ferritin 27 NG/ML (8-388) Total Bilirubin 5.5 MG/DL (0.2-1.0) H Direct Bilirubin 4.5 MG/DL (0.0-0.3) H Aspartate Amino Transf (AST/SGOT) 109 U/L (15-37) H Alanine Aminotransferase (ALT/SGPT) 25 U/L (12-78) Alkaline Phosphatase 240 U/L (46-116) H Total Protein 5.4 G/DL (6.4-8.2) L Albumin 2.0 G/DL (3.4-5.0) L Globulin 3.4 g/dL Albumin/Globulin Ratio 0.6 (1.0-2.7) L Height (Feet): 5 Height (Inches): 8.00 Weight (Pounds): 165 General Appearance: WD/WN, no apparent distress, alert Cardiovascular: normal rate Respiratory/Chest: normal breath sounds, no respiratory distress Abdominal Exam: normal bowel sounds, non tender, soft Extremities: normal range of motion, non-tender Juliette Diop NP February 17, 2019 10:25
[2019-02-17 12:00] VITALS: BP 115/68
[2019-02-17] MEDS ORDERED: cefTRIAXone 1 GM in D5W 55 ML IVPB SCH (14:00)
[2019-02-17 16:00] VITALS: BP 110/70
[2019-02-17 20:00] VITALS: BP 109/70
[2019-02-17] MEDS ORDERED: Iron Sucrose 100 MG in NS 55 ML IV SCH (21:00)
[2019-02-18] VITALS: BP 106/62
--- NOTE | 2019-02-18 01:00 | Cardiology Report ---
APPROVED REPORT EKG Measurement Heart [id number] Sinus tachycardia Otherwise normal ECG
[2019-02-18 04:00] VITALS: BP 114/60
--- NOTE | 2019-02-18 04:15 | Progress Note ---
DATE: 02/17/2019 CARDIOLOGY PROGRESS NOTE SUBJECTIVE: No new bleeding. Blood pressure parameters remained stable. Heart rate controlled. OBJECTIVE: VITAL SIGNS: Blood pressure 107/68, pulse 76, respirations 18, and temperature 99. LUNGS: Clear. CARDIAC: Regular. Normal S1, S2. ABDOMEN: Soft. EXTREMITIES: No edema. IMAGING: Chest x-ray yesterday revealed no acute findings. White count 13 and hemoglobin 9. Potassium 3.2. Iron saturation 6%. IMPRESSION: 1. Gastrointestinal bleeding. 2. Severe anemia. 3. Status post transfusions. 4. Iron deficiency hypokalemia. 5. Alcoholic liver disease. 6. Alcohol abuse. 7. Lactic acidosis, recovered. 8. Shock, resolved. PLAN: 1. Monitor hemoglobin. 2. Replace potassium. 3. Iron replacement. 4. Withdrawal precautions. 5. Vitamin supplementation. Lg Ashton M.D. DR: KRYSTIN JOB#: [id number] CC:
[2019-02-18 07:03] LABS: HEMATOCRIT 28.5 % (42.0-52.0); HEMOGLOBIN 9.5 G/DL (14.2-18.0); MEAN CORPUSCULAR VOLUME 87 FL (80-99); PLATELET COUNT 118 K/UL (150-450); RED BLOOD COUNT 3.28 M/UL (4.70-6.10); RED CELL DISTRIBUTION WIDTH 17.4 % (11.6-14.8); WHITE BLOOD COUNT 17.3 K/UL (4.8-10.8)
[2019-02-18 07:58] LABS: ALANINE AMINOTRANSFERASE 25 U/L (12-78); ALBUMIN 2.2 G/DL (3.4-5.0); ALBUMIN/GLOBULIN RATIO 0.6 (1.0-2.7); ALKALINE PHOSPHATASE 311 U/L (46-116); ANION GAP 12 mmol/L (5-15); ASPARTATE AMINO TRANSFERASE 90 U/L (15-37); BILIRUBIN,TOTAL 7.6 MG/DL (0.2-1.0); BLOOD UREA NITROGEN 5 mg/dL (7-18); CALCIUM 7.8 MG/DL (8.5-10.1); CARBON DIOXIDE 20 MMOL/L (21-32); CHLORIDE 103 MMOL/L (98-107); POTASSIUM 3.6 MMOL/L (3.5-5.1); SODIUM 135 MMOL/L (136-145)
[2019-02-18 08:00] VITALS: BP 118/70
--- NOTE | 2019-02-18 08:02 | General Progress Note ---
Assessment/Plan Status: stable Assessment/Plan: monitor for bleeding PPI dc octreotide drip dc planning if cleared by id Subjective ROS Limited/Unobtainable: No Constitutional: Reports: malaise, weakness HEENT: Reports: no symptoms Cardiovascular: Reports: no symptoms Respiratory: Reports: no symptoms Gastrointestinal/Abdominal: Reports: no symptoms Genitourinary: Reports: no symptoms Neurologic/Psychiatric: Reports: no symptoms Endocrine: Reports: no symptoms Hematologic/Lymphatic: Reports: no symptoms Allergies: Coded Allergies: No Known Allergies (Unverified , 04/26/18) All Systems: reviewed and negative except above Subjective no bleeding. no complaints. hgb stable. remains on iv abx. cxr neg. urine neg Objective Last 24 Hour Vital Signs Date Time Temp Pulse Resp B/P (MAP) Pulse Ox O2 Delivery O2 Flow Rate FiO2 02/18/19 04:00 99.8 78 18 114/60 (78) 96 02/18/19 04:00 70 02/18/19 00:00 86 02/18/19 00:00 99.0 92 18 106/62 (77) 98 02/17/19 21:00 Room Air 02/17/19 20:00 94 02/17/19 20:00 100.0 88 18 109/70 (83) 97 02/17/19 16:00 97.6 73 20 110/70 (83) 97 02/17/19 16:00 73 02/17/19 12:00 98.1 97 20 115/68 (84) 98 02/17/19 12:00 68 02/17/19 10:41 Room Air Intake and Output 02/17/19 02/18/19 19:00 07:00 Intake Total 950 ml 1175 ml Output Total 1000 ml 800 ml Balance -50 ml 375 ml Intake Oral 740 ml 600 ml IV Total 210 ml 300 ml Blood Product 275 ml Output Urine Total 1000 ml 800 ml # Voids 6 6 # Bowel Movements 4 Laboratory Tests 02/18/19 06:09: White Blood Count 17.3H, Red Blood Count 3.28L, Hemoglobin 9.5L, Hematocrit 28.5L, Mean Corpuscular Volume 87, Mean Corpuscular Hemoglobin 28.9, Mean Corpuscular Hemoglobin Concent 33.3, Red Cell Distribution Width 17.4H, Platelet Count 118L, Mean Platelet Volume 6.9, Neutrophils (%) (Auto) , Lymphocytes (%) (Auto) , Monocytes (%) (Auto) , Eosinophils (%) (Auto) , Basophils (%) (Auto) , Neutrophils % (Manual) [Pending], Lymphocytes % (Manual) [Pending], Platelet Estimate [Pending], Platelet Morphology [Pending], Sodium Level 135L, Potassium Level 3.6, Chloride Level 103, Carbon Dioxide Level 20L, Anion Gap 12, Blood Urea Nitrogen 5L, Creatinine [Pending], Estimat Glomerular Filtration Rate [Pending], Glucose Level 101, Calcium Level 7.8L, Magnesium Level [Pending], Total Bilirubin 7.6H, Direct Bilirubin [Pending], Aspartate Amino Transf (AST/SGOT) 90H, Alanine Aminotransferase (ALT/SGPT) 25, Alkaline Phosphatase 311H, Total Protein 5.8L, Albumin 2.2L, Globulin 3.6, Albumin/ Globulin Ratio 0.6L Height (Feet): 5 Height (Inches): 8.00 Weight (Pounds): 166 Objective General Appearance: WD/WN, alert Neck: supple Cardiovascular: normal rate, regular rhythm Respiratory/Chest: chest wall non-tender, lungs clear, normal breath sounds Abdomen: normal bowel sounds, non tender, soft Edema: no edema noted Arm (L), no edema noted Arm (R), no edema noted Leg (L), no edema noted Leg (R), no edema noted Pedal (L), no edema noted Pedal (R), no edema noted Generalized Guido Davis MD February 18, 2019 08:02
[2019-02-18 08:31] LABS: BILIRUBIN,DIRECT 6.1 MG/DL (0.0-0.3); CREATININE 0.6 MG/DL (0.55-1.30)
[2019-02-18] MEDS ORDERED: Thiamine 100mg tab ORAL SCH (09:00)
[2019-02-18] MEDS: Pantoprazole Inj IVP SCH (10:50)
--- NOTE | 2019-02-18 11:05 | Infectious Diseases Prog Note ---
Assessment/Plan Assessment/Plan A; Leukocytosis GI bleeding Alcoholic cirrhosis Esophageal varices Anemia P: Discontinue Rocephin Clear for discharge Subjective ROS Limited/Unobtainable: No Constitutional: Reports: no symptoms Cardiovascular: Reports: no symptoms Gastrointestinal/Abdominal: Reports: no symptoms Genitourinary: Reports: no symptoms Neurologic: Reports: no symptoms Allergies: Coded Allergies: No Known Allergies (Unverified , 04/26/18) Objective Vital Signs Last 24 Hour Vital Signs Date Time Temp Pulse Resp B/P (MAP) Pulse Ox O2 Delivery O2 Flow Rate FiO2 02/18/19 08:00 98.4 84 18 118/70 (86) 98 02/18/19 04:00 99.8 78 18 114/60 (78) 96 02/18/19 04:00 70 02/18/19 00:00 86 02/18/19 00:00 99.0 92 18 106/62 (77) 98 02/17/19 21:00 Room Air 02/17/19 20:00 94 02/17/19 20:00 100.0 88 18 109/70 (83) 97 02/17/19 16:00 97.6 73 20 110/70 (83) 97 02/17/19 16:00 73 02/17/19 12:00 98.1 97 20 115/68 (84) 98 02/17/19 12:00 68 Height (Feet): 5 Height (Inches): 8.00 Weight (Pounds): 166 General Appearance: no acute distress HEENT: other - icterus Respiratory/Chest: lungs clear Cardiovascular: normal rate Abdomen: soft, non tender Extremities: no edema Neurologic/Psychiatric: alert, oriented x 3, responsive Microbiology Date/Time Source Procedure Growth Status 02/15/19 19:20 Rectum - Final NO CARBAPENEM-RESISTANT ENTEROBACTERI... Complete Laboratory Tests Test 02/18/19 06:09 White Blood Count 17.3 K/UL (4.8-10.8) H Red Blood Count 3.28 M/UL (4.70-6.10) L Hemoglobin 9.5 G/DL (14.2-18.0) L Hematocrit 28.5 % (42.0-52.0) L Mean Corpuscular Volume 87 FL (80-99) Mean Corpuscular Hemoglobin 28.9 PG (27.0-31.0) Mean Corpuscular Hemoglobin Concent 33.3 G/DL (32.0-36.0) Red Cell Distribution Width 17.4 % (11.6-14.8) H Platelet Count 118 K/UL (150-450) L Mean Platelet Volume 6.9 FL (6.5-10.1) Neutrophils (%) (Auto) % (45.0-75.0) Lymphocytes (%) (Auto) % (20.0-45.0) Monocytes (%) (Auto) % (1.0-10.0) Eosinophils (%) (Auto) % (0.0-3.0) Basophils (%) (Auto) % (0.0-2.0) Neutrophils % (Manual) Pending Lymphocytes % (Manual) Pending Platelet Estimate Pending Platelet Morphology Pending Sodium Level 135 MMOL/L (136-145) L Potassium Level 3.6 MMOL/L (3.5-5.1) Chloride Level 103 MMOL/L (98-107) Carbon Dioxide Level 20 MMOL/L (21-32) L Anion Gap 12 mmol/L (5-15) Blood Urea Nitrogen 5 mg/dL (7-18) L Creatinine 0.6 MG/DL (0.55-1.30) Estimat Glomerular Filtration Rate > 60 mL/min (>60) Glucose Level 101 MG/DL (74-106) Calcium Level 7.8 MG/DL (8.5-10.1) L Magnesium Level 1.8 MG/DL (1.8-2.4) Total Bilirubin 7.6 MG/DL (0.2-1.0) H Direct Bilirubin 6.1 MG/DL (0.0-0.3) H Aspartate Amino Transf (AST/SGOT) 90 U/L (15-37) H Alanine Aminotransferase (ALT/SGPT) 25 U/L (12-78) Alkaline Phosphatase 311 U/L (46-116) H Total Protein 5.8 G/DL (6.4-8.2) L Albumin 2.2 G/DL (3.4-5.0) L Globulin 3.6 g/dL Albumin/Globulin Ratio 0.6 (1.0-2.7) L Current Medications Medications (Trade) Dose Ordered Sig/Solis Route PRN Reason Start Time Stop Time Status Last Admin Dose Admin Ceftriaxone Sodium 1 gm/ Dextrose 55 ml @ 110 mls/hr Q24H IVPB 02/17/19 14:00 02/22/19 13:59 02/17/19 14:16 Folic Acid (Folate) 1 mg DAILY ORAL 02/18/19 09:00 03/20/19 08:59 02/18/19 10:50 Iron Sucrose 100 mg/Sodium Chloride 60 ml @ 240 mls/hr BEDTIME IV 02/17/19 21:00 02/19/19 21:14 02/17/19 20:45 Pantoprazole (Protonix) 40 mg EVERY 12 HOURS IVP 02/17/19 09:00 03/17/19 20:59 02/18/19 10:50 Thiamine HCl (Vitamin B1) 100 mg DAILY ORAL 02/18/19 09:00 03/20/19 08:59 02/18/19 10:51 Anam Corona MD February 18, 2019 11:05
[2019-02-18 12:00] VITALS: BP 111/68
[2019-02-18 16:00] VITALS: BP 106/69
[2019-02-18] MEDS ORDERED: Tubing IV Secondary IV ONE ×2 (16:38→16:42)
[2019-02-18] MEDS ORDERED: NS 275ml ONE (16:38)
[2019-02-18] MEDS ORDERED: D5NS 1000ml IV ONE ×2 (16:38→16:42)
[2019-02-18] MEDS ORDERED: Tubing Blood Filter IV ONE (16:38)
[2019-02-18] MEDS ORDERED: PROTONIX20 MG ORAL (18:48)
--- NOTE | 2019-02-19 10:51 | Discharge Summary ---
Discharge Summary Discharge Summary _ DATE OF ADMISSION: 02/14/2019 DATE OF DISCHARGE: 02/18/2019 DISCHARGED BY: Dr. Guido Davis CONSULTANTS: Dr. Navid Victoria [facility] H[facility]PITAL COURSE: Patient is a 28-year-old male, with no medical history. He had multiple episodes of bright red vomiting and hematemesis. He denied any melena or bright red blood per rectum. He presented to the emergency room. On evaluation , hemoglobin was 4. He had white count of 30,000. LFTs were elevated. Patient admitted to long history of drinking a pint of vodka for 2 to 3 years, 3 -4 times a week, but he quit 6 months ago. He was started on blood transfusion. He was admitted for further evaluation and care. He was given IV Protonix and octreotide. Continued on blood transfusion. GI was consulted. On 02/15/2019, gastropathy. He underwent EGD with banding. Findings showed 4 columns of grade 4 distal esophageal varices. In the stomach , there were diffuse portal hypertensive gastropathy. He was continued on n.p.o. Protonix drip was changed to q12 hours. Liquid diet was started the following day. Patient had a seizure and hit his head in the bathroom. He had a short post ictal state. He was given loading dose of Keppra. EEG done was negative and CAT scan of the brain was normal. Keppra was discontinued. Patient had leukocytosis. ID was consulted. Abdominal ultrasound showed multiple adherent intraluminal areas of increased echogenicity within the gallbladder, possible polyp versus sludge; diffuse hepatocellular disease, most likely fatty change. He had elevated LFTs. Hepatitis panel was negative. He was started empirically on ceftriaxone. Chest x-ray did not show any acute findings. Diet was advanced. He was given folic acid and thiamine. Octreotide drip was discontinued. He was given IV Venofer. Potassium was repleted. Hemoglobin levels were stable. Leukocytosis down trended. Vital signs were stable. Pathology results showed chronic gastritis, no H. pylori identified. Patient was discharged home. FINAL DIAGNOSES: Acute GI bleed due to esophageal varices Severe anemia status post multiple transfusion Single seizure event, likely due to severe anemia and hypoperfusion Alcohol dependence Iron deficiency anemia Elevated LFTs Portal hypertensive gastropathy Status post EGD Alcoholic liver cirrhosis Hypokalemia Leukocytosis DISPOSITION: Patient was discharged home. DISCHARGE MEDICATIONS: Refer to Discharge Medication List. DISCHARGE INSTRUCTIONS: Follow-up in a week. Advised will need a repeat EGD in a month. I have been assigned to complete a discharge summary on this account, I was not involved with the patient's management. Wanda Palomares NP February 19, 2019 10:51
--- NOTE | 2019-02-19 12:45 | Progress Note ---
DATE: 02/18/2019 CARDIOLOGY PROGRESS NOTE SUBJECTIVE: No new bleeding noted. Blood pressure parameters remained stable. Laboratories are noted. Electrolytes have been corrected. PHYSICAL EXAMINATION: LUNGS: Clear. CARDIAC: Regular. ABDOMEN: Soft. EXTREMITIES: No edema. IMPRESSION: 1. GI bleeding with severe anemia and shock, now recovered. 2. Leukocytosis. 3. Alcoholic liver disease. 4. Severe protein-calorie malnutrition. PLAN: 1. Complete antibiotics. 2. Iron replacement. 3. Abstinence from alcohol. 4. Vitamin replacement. 5. Outpatient follow up. Lg Ashton M.D. DR: THERESA JOB#: [id number] CC:
== END 2019-02-18 19:25 | disposition home or self-care (01) | DRG 280 ==
LOC: EMR 18:34 → EDBEDREQ 19:10 → EDBEDREQSVC 19:10 → ICU 19:55 → EDBEDREQ 21:21 → EMR 22:53 → 2E 02-16 23:08
PROC: 30233N1 Transfusion of Nonautologous Red Blood Cells into Peripheral Vein, Percutaneous Approach (ICD-10-PCS; 2019-02-15)
PROC: 0DB68ZX Excision of Stomach, Via Natural or Artificial Opening Endoscopic, Diagnostic (ICD-10-PCS; principal; 2019-02-15 11:30)
PROC: 06L38CZ Occlusion of Esophageal Vein with Extraluminal Device, Via Natural or Artificial Opening Endoscopic (ICD-10-PCS; 2019-02-15 11:30)
DX: K70.30 Alcoholic cirrhosis of liver without ascites (principal); R57.1 Hypovolemic shock; I85.11 Secondary esophageal varices with bleeding; E43 Unspecified severe protein-calorie malnutrition; K76.6 Portal hypertension; R56.9 Unspecified convulsions; I85.10 Secondary esophageal varices without bleeding; D62 Acute posthemorrhagic anemia; F10.20 Alcohol dependence, uncomplicated; K31.89 Other diseases of stomach and duodenum; R00.0 Tachycardia, unspecified
CPT/HCPCS: 36415; 70450; 71045; 76700; 80053; 81003; 82150; 82248; 82728; 83540; 83550; 83605; 83690; 83735; 85007; 85025; 85610; 85730; 86708; 86803; 86850; 86900; 86901; 86920; 87081; 87340; 87517; 93005; 94003; 94150; 95819; 96361; 96365; 96367; 96375; 99291; J2250; J2405; J3430; J8499

== ENCOUNTER 2019-03-15 10:26 | Inpatient (IN) | payer OTHER ==
[~2019-03-15] VITALS: Ht 172.7 cm; Wt 75.9 kg
[~2019-03-15 10:26] MED LIST changes: +MELATONIN1 M3 PO; +PROTONIX20 MG ORAL; +UNOBMED
--- NOTE | 2019-03-15 10:36 | NUR ---
ED Nurse Note: Patient brought in by wheelchair from the triage room, c/o stomachach on the right side radiating to his bilateral arms 9/10 cramping pain with n/v since last night. patient denies diarrhea patient denies blood in stool, black tarry stool. patient is being changed to hospital gown and plced on the radiographer cardiac catheterization patient is alert awake x4
[2019-03-15 10:59] LABS: HEMATOCRIT 35.8 % (42.0-52.0); HEMOGLOBIN 11.3 G/DL (14.2-18.0); MEAN CORPUSCULAR VOLUME 86 FL (80-99); PLATELET COUNT 91 K/UL (150-450); RED BLOOD COUNT 4.19 M/UL (4.70-6.10); RED CELL DISTRIBUTION WIDTH 15.1 % (11.6-14.8); WHITE BLOOD COUNT 16.6 K/UL (4.8-10.8)
[2019-03-15] MEDS ORDERED: Morphine Sulfate 4mg/ml Inj (IV USE ONLY) IVP ONE (11:00)
[2019-03-15] MEDS ORDERED: Thiamine HCl 100 MG in D5W 55 ML IV ONE (11:00)
[2019-03-15] MEDS ORDERED: LORazepam Inj 2mg/ml 1ml IV ONE (11:00)
[2019-03-15 11:10] LABS: ANION GAP 18 mmol/L (5-15); BLOOD UREA NITROGEN 10 mg/dL (7-18); CARBON DIOXIDE 23 MMOL/L (21-32); CHLORIDE 98 MMOL/L (98-107); CREATININE 0.9 MG/DL (0.55-1.30); POTASSIUM 3.6 MMOL/L (3.5-5.1); SODIUM 139 MMOL/L (136-145)
--- NOTE | 2019-03-15 11:11 | NUR ---
ED Nurse Note: urinal provided to the patient
[2019-03-15 11:13] VITALS: BP 130/79
[2019-03-15 11:13] LABS: INR 1.3 (0.9-1.1)
[2019-03-15 11:15] LABS: AMMONIA 54 umol/L (11-32); PHOSPHORUS 3.3 MG/DL (2.5-4.9)
[2019-03-15 11:20] LABS: ALANINE AMINOTRANSFERASE 44 U/L (12-78); ALBUMIN 3.2 G/DL (3.4-5.0); ALBUMIN/GLOBULIN RATIO 0.6 (1.0-2.7); ALKALINE PHOSPHATASE 901 U/L (46-116); ASPARTATE AMINO TRANSFERASE 283 U/L (15-37); BILIRUBIN,TOTAL 6.4 MG/DL (0.2-1.0); CREATINE KINASE 310 U/L (26-308)
[2019-03-15 11:21] LABS: BILIRUBIN,DIRECT 4.7 MG/DL (0.0-0.3)
--- NOTE | 2019-03-15 11:26 | NUR ---
ED Nurse Note: chest xray taken at bedside father at bedside.
[2019-03-15] MEDS ORDERED: Cefepime HCl 1 GM in D5W 55 ML IVPB ONE (11:30)
--- NOTE | 2019-03-15 11:35 | NUR ---
ED Nurse Note: blood culture sent to lab
[2019-03-15 11:37] VITALS: BP 131/78
--- NOTE | 2019-03-15 12:14 | NUR ---
ED Nurse Note: magnesium 1.[address] Suárez
[2019-03-15] MEDS ORDERED: Phytonadione 10 mg/mL 1ml amp SUBQ ONE (12:30)
[2019-03-15] MEDS ORDERED: Phytonadione 10 mg/mL 1ml amp ONE (12:31)
--- NOTE | 2019-03-15 12:38 | NUR ---
ED Nurse Note: called to give report to Tacos PALACIOS at 2E, but she is unable to take report at this time. urine sent to lab
[2019-03-15 12:45] LABS: APPEARANCE,URINE CLEAR; BILIRUBIN, URINE 3+ (NEGATIVE); COLOR,URINE BROWN; GLUCOSE, URINE (UA) NEGATIVE (NEGATIVE); KETONES,URINE 3+ (NEGATIVE); LEUKOCYTE ESTERASE ,URINE 2+ (NEGATIVE); NITRITE,URINE POSITIVE (NEGATIVE); PH,URINE 7 (4.5-8.0); PROTEIN,URINE 4+ (NEGATIVE); UROBILINOGEN,URINE 8 MG/DL (0.0-1.0)
[2019-03-15] MEDS ORDERED: LORazepam Inj 2mg/ml 1ml IV PRN (12:59)
[2019-03-15] MEDS ORDERED: Morphine Sulfate 2mg/ml Inj(IV/IM USE ONLY) IVP PRN (12:59)
--- NOTE | 2019-03-15 13:08 | NUR ---
ED Nurse Note: patient is being transferred to 2E report given to JAMES PALACIOS patient transferred up with all of his belongigns.
--- NOTE | 2019-03-15 13:10 | NUR ---
NURSE NOTES: Received report from PHILIP Diaz. Patient transferred from ED to tele, registered nurse cardiac telemetry on, belonging list checked with RN. Patient AOx4, no active s/s cardiac, respiratory distress noticed at this time, minimal hand tremor, ST with HR 106, patient on room air, c/o anterior, right lateral side of chest pain 04/28, no radiation. IV on right AC 18G, asymptomatic, patent, intact. VS at the time of arrival T 97.7, TN 107, O2 sat 97%, RR 20, BP 117/66. Side rails padded, suction at the bed side, bed in lowest position, side rails upx2, call light within reach, Bed alarm on. Will continue to monitor.
[2019-03-15] MEDS: Folic Acid 1 MG, Magnesium Sulfate 2,000 MG, Multivitamin - 12 Injection 10 ML in NS w/... IV SCH (15:49)
--- NOTE | 2019-03-15 16:36 | NUR ---
NURSE NOTES: Paged Dr. Chery regarding ED doctor ordered NS at 300ml/h and on banana bag now. Per Dr. Chery, ER physician orders are only good for ER, d/c NS. Order noted, entered, carried out. Will continue to monitor.
--- NOTE | 2019-03-15 18:45 | Emergency Room Report ---
History of Present Illness General Chief Complaint: Abdominal Pain Source: Patient Present Illness HPI Patient presents with intractable vomiting and abdominal pain for 2 days. He is unable to keep down liquids. He has been drinking alcohol but stopped 3 days ago. Denies vomiting blood, coffee grounds, hematochezia or melena. He feels weak and has a tremor. He denies recent seizure activity but has had withdrawal seizures in the past. There is decreased urine output and the urine is dark. He denies any rashes. There is no head trauma. He has no unilateral weakness. He is uncertain if he has cirrhosis or liver problems (see below). He is been told he has anemia. See below. He denies suicidal or homicidal ideation. He does feel anxious. Recently discharged from the hospital. Discharge diagnoses: Acute GI bleed due to esophageal varices -status post variceal banding Severe anemia status post multiple transfusion Single seizure event, likely due to severe anemia and hypoperfusion - temporarily treated with Keppra Alcohol dependence Iron deficiency anemia Elevated LFTs Portal hypertensive gastropathy Status post EGD Alcoholic liver cirrhosis Hypokalemia Leukocytosis Allergies: Coded Allergies: No Known Allergies (Unverified , 04/26/18) Patient History Past Medical History: see triage record, other - Esophageal varices Social History: Reports: alcohol use; Denies: smoking Social History Narrative With his father Reviewed Nursing Documentation: PMH: Agreed; PSxH: Agreed Nursing Documentation-PMH Past Medical History: No History, Except For Hx Cardiac Problems: No Hx Cancer: No Hx Gastrointestinal Problems: Yes - pancreatitis Hx Neurological Problems: Yes Hx Seizures: Yes Physical Exam Vital Signs Date Time Temp Pulse Resp B/P (MAP) Pulse Ox O2 Delivery O2 Flow Rate FiO2 03/15/19 10:28 98.1 125 22 124/70 (88) 98 03/15/19 11:13 Room Air Eyes: bilateral eye scleral icterus ENT: moist mucus membranes Gastrointestinal: tenderness - epigastric Neurologic: alert, oriented x3, marine fitter III-XII nml as tested, motor strength/tone normal - Tremor, DTRs symmetric - Hyperreflexic, sensory intact, cerebellar normal, speech normal, other Skin: other - sallo Medical Decision Making Diagnostic Impression: Primary Impression: IMPENDING DTS Additional Impressions: Liver failure Qualified Codes: K72.00 - Acute and subacute hepatic failure without coma Alcohol abuse Thrombocytopenia Coagulopathy Abdominal pain Qualified Codes: R10.13 - Epigastric pain Hypomagnesemia ER Course Patient presents with epigastric pain and intractable vomiting without blood and evidence of scleral icterus and tremor. Differential includes gastroenteritis, alcohol withdrawal, gastritis, liver failure, electrolyte imbalance, occult infection amongst others. Patient is not encephalopathic at this time and there is no apparent head trauma. Evaluation with EKG, chest x- ray and labs. Patient will be treated with IV hydration, thiamine, Ativan, Pepcid and analgesia. Seizure precautions undertaken. EKG with sinus tachycardia. Chest x-ray: No infiltrates. Leukocytosis present. Thrombocytopenia. Mild anemia. Normal renal function. Elevated liver function tests. Prolonged INR. Ammonia minimally elevated. Blood alcohol 27. Magnesium is low. Due to leukocytosis, Cefipime given after blood cultures. No obvious infectious etiology uncovered. Magnesium ordered. Vitamin K sub cutaneous. Improved with treatment, but still with nausea and tremor. Due to the risk of impending delirium tremens (alcohol positive) patient admits to telemetry to and Vik. Laboratory Tests Test 03/15/19 10:37 03/15/19 12:38 White Blood Count 16.6 K/UL (4.8-10.8) H Red Blood Count 4.19 M/UL (4.70-6.10) L Hemoglobin 11.3 G/DL (14.2-18.0) L Hematocrit 35.8 % (42.0-52.0) L Mean Corpuscular Volume 86 FL (80-99) Mean Corpuscular Hemoglobin 27.1 PG (27.0-31.0) Mean Corpuscular Hemoglobin Concent 31.7 G/DL (32.0-36.0) L Red Cell Distribution Width 15.1 % (11.6-14.8) H Platelet Count 91 K/UL (150-450) L Mean Platelet Volume 6.9 FL (6.5-10.1) Neutrophils (%) (Auto) % (45.0-75.0) Lymphocytes (%) (Auto) % (20.0-45.0) Monocytes (%) (Auto) % (1.0-10.0) Eosinophils (%) (Auto) % (0.0-3.0) Basophils (%) (Auto) % (0.0-2.0) Differential Total Cells Counted 100 Neutrophils % (Manual) 91 % (45-75) H Lymphocytes % (Manual) 5 % (20-45) L Monocytes % (Manual) 4 % (1-10) Eosinophils % (Manual) 0 % (0-3) Basophils % (Manual) 0 % (0-2) Band Neutrophils 0 % (0-8) Platelet Estimate Decreased L Platelet Morphology Normal Anisocytosis 1+ Prothrombin Time 13.7 SEC (9.30-11.50) H Prothrombin Time INR 1.3 (0.9-1.1) H PTT 28 SEC (23-33) Sodium Level 139 MMOL/L (136-145) Potassium Level 3.6 MMOL/L (3.5-5.1) Chloride Level 98 MMOL/L (98-107) Carbon Dioxide Level 23 MMOL/L (21-32) Anion Gap 18 mmol/L (5-15) H Blood Urea Nitrogen 10 mg/dL (7-18) Creatinine 0.9 MG/DL (0.55-1.30) Estimate Glomerular Filtration Rate > 60 mL/min (>60) Glucose Level 166 MG/DL (74-106) H Calcium Level 9.0 MG/DL (8.5-10.1) Phosphorus Level 3.3 MG/DL (2.5-4.9) Magnesium Level 1.2 MG/DL (1.8-2.4) L Total Bilirubin 6.4 MG/DL (0.2-1.0) H Direct Bilirubin 4.7 MG/DL (0.0-0.3) H Aspartate Amino Transferase (AST) 283 U/L (15-37) H Alanine Aminotransferase (ALT) 44 U/L (12-78) Alkaline Phosphatase 901 U/L (46-116) H Ammonia 54 umol/L (11-32) H Total Creatine Kinase 310 U/L (26-308) H Troponin I 0.000 ng/mL (0.000-0.056) Total Protein 8.9 G/DL (6.4-8.2) H Albumin 3.2 G/DL (3.4-5.0) L Globulin 5.7 g/dL Albumin/Globulin Ratio 0.6 (1.0-2.7) L Salicylates Level < 0.2 ug/mL (2.8-20) L Acetaminophen Level < 2 MCG/ML (10-30) L Serum Alcohol 17 mg/dL Urine Color Brown Urine Appearance Clear Urine pH 7 (4.5-8.0) Urine Specific [place] 1.015 (1.005-1.035) Urine Protein 4+ (NEGATIVE) H Urine Glucose (UA) Negative (NEGATIVE) Urine Ketones 3+ (NEGATIVE) H Urine Blood 2+ (NEGATIVE) H Urine Nitrite Positive (NEGATIVE) H Urine Bilirubin 3+ (NEGATIVE) H Urine Ictotest Positive (NEGATIVE) Urine Urobilinogen 8 MG/DL (0.0-1.0) H Urine Leukocyte Esterase 2+ (NEGATIVE) H Urine RBC 5-10 /HPF (0 - 0) H Urine WBC 2-4 /HPF (0 - 0) Urine Squamous Epithelial Cells Occasional /LPF Urine Bacteria Few /HPF (NONE) Urine Mucus Few /LPF (NONE/OCC) H Urine Opiates Screen Positive (NEGATIVE) H Urine Barbiturates Screen Negative (NEGATIVE) Phencyclidine (PCP) Screen Negative (NEGATIVE) Urine Amphetamines Screen Negative (NEGATIVE) Urine Benzodiazepines Screen Negative (NEGATIVE) Urine Cocaine Screen Negative (NEGATIVE) Urine Marijuana (THC) Screen Negative (NEGATIVE) EKG Diagnostic Results Rate: tachycardiac Rhythm: NSR ST Segments: no acute changes Rhythm Strip Diag. Results EP Interpretation: yes Rhythm: no PVC's, no ectopy, other - ST Chest X-Ray Diagnostic Results Chest X-Ray Diagnostic Results : Chest X-Ray Ordered: Yes # of Views/Limited/Complete: 1 View Indication: Other EP Interpretation: Yes Interpretation: no consolidation, no effusion, no pneumothorax Impression: No acute disease Electronically Signed by: Electronically signed by Lg Suárez MD Last Vital Signs Date Time Temp Pulse Resp B/P (MAP) Pulse Ox O2 Delivery O2 Flow Rate FiO2 03/15/19 16:00 110 03/15/19 14:02 Room Air 03/15/19 13:08 99.1 15 131/78 95 Status: improved Disposition: ADMITTED INPATIENT Condition: Serious Referrals: NON PHYSICIAN (PCP) Lg Suárez MD March 15, 2019 18:45
--- NOTE | 2019-03-15 19:33 | NUR ---
HAND-OFF: Report given to PHILIP Mao.
--- NOTE | 2019-03-15 19:34 | NUR ---
NURSE NOTES: Received report from PHILIP Balderrama. Pt is awake and resting in bed. In no acute distress. IV line intact and patent. Will be NPO after midnight for stress test in the AM. Pt is aware and compliant. Family is at bedside. Bed in lowest position, call light within reach. Will continue plan of care. Addendum: 03/16/19 at 4423 by Mayco Victoria RN Disregard. Incorrect patient.
--- NOTE | 2019-03-15 19:35 | NUR ---
NURSE NOTES: Received report from PHILIP Balderrama. Pt is awake and resting in bed. AOx4. In no acute distress. IV line intact and patent. Bed in lowest position, call light within reach. Will continue plan of care.
[2019-03-15 20:00] VITALS: BP 109/59
[2019-03-15] MEDS: chlordiazePOXIDE 25mg Cap ORAL PRN (20:45)
[2019-03-15] MEDS ORDERED: Miralax 17gm pkt ORAL PRN (21:00)
[2019-03-15] MEDS ORDERED: Zolpidem 5mg tab ORAL PRN (21:00)
[2019-03-15] MEDS: Heparin 5000 units/ml inj SUBQ SCH (21:00)
[2019-03-16] VITALS: BP 118/52
[2019-03-16] MEDS: D5 1/2NS 1,000 ML IV SCH (00:48)
[2019-03-16 04:00] VITALS: BP 126/58
--- NOTE | 2019-03-16 07:20 | NUR ---
HAND-OFF: Report given to PHILIP Frazier.
--- NOTE | 2019-03-16 07:25 | NUR ---
NURSE NOTES: Received patient from Mayco PALACIOS in bed, no s/s of vomiting or DT. Patient denies pain. Bed is in lowest position. IV is intact. Call light is within reach. Will continue with the plan of care.
[2019-03-16 08:00] VITALS: BP 120/81
[2019-03-16 08:04] LABS: HEMATOCRIT 30.3 % (42.0-52.0); HEMOGLOBIN 9.6 G/DL (14.2-18.0); MEAN CORPUSCULAR VOLUME 86 FL (80-99); PLATELET COUNT 51 K/UL (150-450); RED BLOOD COUNT 3.55 M/UL (4.70-6.10); RED CELL DISTRIBUTION WIDTH 15.4 % (11.6-14.8); WHITE BLOOD COUNT 11.3 K/UL (4.8-10.8)
[2019-03-16 08:49] LABS: ALANINE AMINOTRANSFERASE 37 U/L (12-78); ALBUMIN 2.6 G/DL (3.4-5.0); ALBUMIN/GLOBULIN RATIO 0.6 (1.0-2.7); ALKALINE PHOSPHATASE 674 U/L (46-116); ANION GAP 7 mmol/L (5-15); ASPARTATE AMINO TRANSFERASE 211 U/L (15-37); BILIRUBIN,TOTAL 6.3 MG/DL (0.2-1.0); BLOOD UREA NITROGEN 9 mg/dL (7-18); CALCIUM 8.4 MG/DL (8.5-10.1); CARBON DIOXIDE 27 MMOL/L (21-32); CHLORIDE 100 MMOL/L (98-107); CREATININE 0.7 MG/DL (0.55-1.30); POTASSIUM 3.5 MMOL/L (3.5-5.1); SODIUM 134 MMOL/L (136-145)
[2019-03-16 08:57] LABS: BILIRUBIN,DIRECT 4.8 MG/DL (0.0-0.3)
[2019-03-16] MEDS: Heparin 5000 units/ml inj SUBQ SCH ×2 (09:00→21:00)
[2019-03-16] MEDS: chlordiazePOXIDE 25mg Cap ORAL PRN ×2 (09:18→18:40)
--- NOTE | 2019-03-16 10:50 | NUR ---
CASE MANAGEMENT:REVIEW 28 YR OLD MALE TO ER CC; BODY PAIN, N/V, AND TREMORS SI:DELIRIUM TREMORS 99.1 125 22 124/70 98% ON RA WBC+16.6 PLT-91 MAG-1.2 IS: IV ATIVAN 1L NS BOLUS IV THIAMINE IV ZOFRAN 1L NS BOLUS IV PEPCID IV MORPHINE IV CEFEPIME BLOOD CX XRAY ABD CXR TELEMETRY STATUS IS: IV MAG SULFATE INTERQUAL CRITERIA MET
--- NOTE | 2019-03-16 11:08 | Consultation ---
History of Present Illness General Chief Complaint: Abdominal Pain Present Illness HPI 28-year-old male with hx of ETOH abuse, previous upper GI bleeding, presented to ER with c/o multiple episodes of bright red blood vomiting and hematemesis. He was confused and delirious on presentation. Allergies: Coded Allergies: No Known Allergies (Unverified , 04/26/18) Medication History Scheduled Pantoprazole Sodium (Protonix), 40 MG ORAL DAILY, (Reported) Patient History Healthcare decision maker Resuscitation status Full Code Advanced Directive on File Past Medical/Surgical History Past Medical/Surgical History: (1) Alcohol dependence (2) GI (gastrointestinal bleed) Review of Systems All Other Systems: negative except mentioned in HPI Physical Exam General Appearance: WD/WN Lines, tubes and drains: peripheral HEENT: normocephalic, anicteric Neck: non-tender, normal alignment Respiratory/Chest: chest wall non-tender Cardiovascular/Chest: normal peripheral pulses, normal rate Abdomen: normal bowel sounds, non tender Genitourinary/Rectal: normal genital exam Extremities: normal range of motion 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 normal Lymphatic: anterior cervical Last 24 Hour Vital Signs Date Time Temp Pulse Resp B/P (MAP) Pulse Ox O2 Delivery O2 Flow Rate FiO2 03/16/19 08:00 91 03/16/19 08:00 98.8 91 18 120/81 (94) 98 03/16/19 04:00 86 03/16/19 04:00 98.0 86 18 126/58 (80) 97 03/16/19 00:00 98.8 76 18 118/52 (74) 97 03/16/19 00:00 76 03/15/19 21:00 Room Air 03/15/19 20:00 75 03/15/19 20:00 98.8 75 18 109/59 (76) 96 03/15/19 16:00 110 03/15/19 14:02 Room Air 03/15/19 13:08 99.1 108 15 131/78 95 Room Air 03/15/19 11:50 99.1 03/15/19 11:37 99.1 108 15 131/78 95 Room Air 03/15/19 11:26 114 24 Room Air 03/15/19 11:13 98.1 114 24 130/79 94 Room Air Intake and Output 03/15/19 03/16/19 19:00 07:00 Intake Total 100 ml 1764.2 ml Balance 100 ml 1764.2 ml Intake Oral 100 ml 300 ml IV Total 1464.2 ml # Voids 3 # Bowel Movements 2 Laboratory Tests Test 03/15/19 12:38 03/16/19 07:15 Urine Color Brown Urine Appearance Clear Urine pH 7 (4.5-8.0) Urine Specific [place] 1.015 (1.005-1.035) Urine Protein 4+ (NEGATIVE) H Urine Glucose (UA) Negative (NEGATIVE) Urine Ketones 3+ (NEGATIVE) H Urine Blood 2+ (NEGATIVE) H Urine Nitrite Positive (NEGATIVE) H Urine Bilirubin 3+ (NEGATIVE) H Urine Ictotest Positive (NEGATIVE) Urine Urobilinogen 8 MG/DL (0.0-1.0) H Urine Leukocyte Esterase 2+ (NEGATIVE) H Urine RBC 5-10 /HPF (0 - 0) H Urine WBC 2-4 /HPF (0 - 0) Urine Squamous Epithelial Cells Occasional /LPF Urine Bacteria Few /HPF (NONE) Urine Mucus Few /LPF (NONE/OCC) H Urine Opiates Screen Positive (NEGATIVE) H Urine Barbiturates Screen Negative (NEGATIVE) Phencyclidine (PCP) Screen Negative (NEGATIVE) Urine Amphetamines Screen Negative (NEGATIVE) Urine Benzodiazepines Screen Negative (NEGATIVE) Urine Cocaine Screen Negative (NEGATIVE) Urine Marijuana (THC) Screen Negative (NEGATIVE) White Blood Count 11.3 K/UL (4.8-10.8) H Red Blood Count 3.55 M/UL (4.70-6.10) L Hemoglobin 9.6 G/DL (14.2-18.0) L Hematocrit 30.3 % (42.0-52.0) L Mean Corpuscular Volume 86 FL (80-99) Mean Corpuscular Hemoglobin 27.1 PG (27.0-31.0) Mean Corpuscular Hemoglobin Concent 31.7 G/DL (32.0-36.0) L Red Cell Distribution Width 15.4 % (11.6-14.8) H Platelet Count 51 K/UL (150-450) L Mean Platelet Volume 9.5 FL (6.5-10.1) Neutrophils (%) (Auto) % (45.0-75.0) Lymphocytes (%) (Auto) % (20.0-45.0) Monocytes (%) (Auto) % (1.0-10.0) Eosinophils (%) (Auto) % (0.0-3.0) Basophils (%) (Auto) % (0.0-2.0) Neutrophils % (Manual) Pending Lymphocytes % (Manual) Pending Platelet Estimate Pending Platelet Morphology Pending Sodium Level 134 MMOL/L (136-145) L Potassium Level 3.5 MMOL/L (3.5-5.1) Chloride Level 100 MMOL/L (98-107) Carbon Dioxide Level 27 MMOL/L (21-32) Anion Gap 7 mmol/L (5-15) Blood Urea Nitrogen 9 mg/dL (7-18) Creatinine 0.7 MG/DL (0.55-1.30) Estimat Glomerular Filtration Rate > 60 mL/min (>60) Glucose Level 100 MG/DL (74-106) Calcium Level 8.4 MG/DL (8.5-10.1) L Total Bilirubin 6.3 MG/DL (0.2-1.0) H Direct Bilirubin 4.8 MG/DL (0.0-0.3) H Aspartate Amino Transf (AST/SGOT) 211 U/L (15-37) H Alanine Aminotransferase (ALT/SGPT) 37 U/L (12-78) Alkaline Phosphatase 674 U/L (46-116) H Total Protein 7.3 G/DL (6.4-8.2) Albumin 2.6 G/DL (3.4-5.0) L Globulin 4.7 g/dL Albumin/Globulin Ratio 0.6 (1.0-2.7) L Height (Feet): 5 Height (Inches): 8.00 Weight (Pounds): 170 Medications Current Medications Medications (Trade) Dose Ordered Sig/Solis Route PRN Reason Start Time Stop Time Status Last Admin Dose Admin Acetaminophen (Tylenol) 650 mg Q4H PRN ORAL fever 03/15/19 12:57 04/14/19 12:56 Chlordiazepoxide (Librium) 25 mg Q6H PRN ORAL Agitation 03/15/19 13:00 03/22/19 12:59 03/16/19 09:18 Dextrose (Dextrose 50%) 25 ml Q30M PRN IV Hypoglycemia 03/15/19 12:57 04/14/19 12:56 Dextrose (Dextrose 50%) 50 ml Q30M PRN IV Hypoglycemia 03/15/19 12:57 04/14/19 12:56 Dextrose/Sodium Chloride 1,000 ml @ 75 mls/hr [id number] IV 03/16/19 23:00 04/15/19 22:59 03/16/19 00:48 Folic Acid 1 mg/ Magnesium Sulfate 2000 mg/ Multivitamins 10 ml/Potassium Chloride/Sodium Chloride 1,014.2 ml @ 124.876 mls/hr Q24H IV 03/15/19 15:00 04/14/19 14:59 03/15/19 15:49 Heparin Sodium (Porcine) (Heparin 5000 units/ml) 5,000 units EVERY 12 HOURS SUBQ 03/15/19 21:00 04/14/19 20:59 Lorazepam (Ativan 2mg/ml 1ml) 2 mg Q1H PRN IV seizures 03/15/19 12:59 03/22/19 12:58 Morphine Sulfate (Morphine Sulfate) 1 mg Q4H PRN IVP For Pain 03/15/19 12:59 03/22/19 12:58 03/15/19 20:47 Ondansetron HCl (Zofran) 4 mg Q6H PRN IVP Nausea & Vomiting 03/15/19 12:57 04/14/19 12:56 Polyethylene Glycol (Miralax) 17 gm HSPRN PRN ORAL Constipation 03/15/19 21:00 04/14/19 20:59 Thiamine HCl 100 mg/Dextrose 56 ml @ 112 mls/hr Q24H IV 03/16/19 15:00 04/15/19 14:59 Zolpidem Tartrate (Ambien) 5 mg HSPRN PRN ORAL Insomnia 03/15/19 21:00 03/22/19 20:59 Assessment/Plan Problem List: (1) Acute delirium ICD Codes: R41.0 - Disorientation, unspecified SNOMED: 8457772, 4042495 (2) GI (gastrointestinal bleed) ICD Codes: K92.2 - Gastrointestinal hemorrhage, unspecified SNOMED: 73353049 (3) Alcoholic cirrhosis ICD Codes: K70.30 - Alcoholic cirrhosis of liver without ascites SNOMED: 857189466 (4) Alcohol abuse ICD Codes: F10.10 - Alcohol abuse, uncomplicated SNOMED: 00192562 Assessment/Plan: NPO iv fluids GI evaluation prbc prn H2 blockers Librium prn Matilde Mosley MD March 16, 2019 11:08
--- NOTE | 2019-03-16 11:45 | NUR ---
*-* INSURANCE *-* ALL CLINICALS AND REVIEWS HAVE BEEN FAXED TO: [employer] [employer] ASSIGNED AT THIS TIME P- [phone]...REVIEW/CLINICAL
[2019-03-16 12:00] VITALS: BP 116/67
--- NOTE | 2019-03-16 13:13 | Diagnostic Imaging Report ---
EXAM: XR Abdomen, 2 Views CLINICAL HISTORY: ABD PAIN TECHNIQUE: Frontal view of the abdomen/pelvis with upright view of the abdomen. COMPARISON: No prior radiographs FINDINGS: Hardware: None. Abdomen: Nonobstructive but nonspecific bowel gas pattern. No free air. Bones: Normal. Soft tissues: Normal. Lower chest: Normal. IMPRESSION: Nonobstructive but nonspecific bowel gas pattern. No free air.
--- NOTE | 2019-03-16 13:13 | Diagnostic Imaging Report ---
EXAM: XR Chest, 1 View CLINICAL HISTORY: ABD PAIN TECHNIQUE: Frontal view of the chest. COMPARISON: Chest radiograph on 02/16/2019 FINDINGS: Hardware: None. Lungs/pleura: Normal. No focal consolidation. No pleural effusion or pneumothorax. Heart/mediastinum: Normal. No cardiomegaly. Soft tissues: Unremarkable. Bones: No acute fracture. Upper abdomen: Normal. IMPRESSION: No acute disease identified.
[2019-03-16] MEDS: Folic Acid 1 MG, Magnesium Sulfate 2,000 MG, Multivitamin - 12 Injection 10 ML in NS w/... IV SCH (14:10)
[2019-03-16] MEDS: Thiamine HCl 100 MG in D5W 55 ML IV SCH (14:10)
[2019-03-16 16:00] VITALS: BP 139/68
[2019-03-16] MEDS ORDERED: D5 1/2NS 1000ml IV ONE (16:54)
[2019-03-16] MEDS ORDERED: Isovue-300 100ml vial INJ PRN (17:00)
--- NOTE | 2019-03-16 17:14 | History & Physical ---
History and Physical History & Physicial Dictated for Int Med-Dr Helms no. [id number]. Lee Rangel MD March 16, 2019 17:14
--- NOTE | 2019-03-16 18:46 | Physician Query ---
Clarification is required for compliance, coding accuracy, and to reflect severity of illness for this patient Dear ___HUDSON URIBE Date: Product Management Internship/JOSY Name: __KARIN Please respond to the following question: Is there a diagnosis specific to these symptoms or values? If so please state below. ED NOTE: Patient presents with intractable vomiting and abdominal pain for 2 days. He is unable to keep down liquids. He has been drinking alcohol but stopped 3 days ago. Denies vomiting blood, coffee grounds, hematochezia or melena. He feels weak and has a tremor It has been mentioned in ED note:Acute and subacute hepatic failure without coma Do you agree with the mentioned diagnosis? PHYSICIAN RESPONSE: Present on Admission: [X] Yes [] No [] Clinically Undetermined Physician signature Date Please also document in your Progress Notes and/or Discharge Summary and indicate if the condition was present on admission. BRIDGETTE
--- NOTE | 2019-03-16 19:58 | NUR ---
HAND-OFF: Report given to PHILIP Castro. Endorsed plan of care.
--- NOTE | 2019-03-16 19:59 | NUR ---
NURSE NOTES: Received pt from PHILIP Frazier. Pt is awake and resting in bed. Pt IV site intact and patent. Bed in lowest position and call light within reach. Will continue with plan of care.
[2019-03-16 20:00] VITALS: BP 118/80
[2019-03-17] VITALS: BP 117/75
[2019-03-17] MEDS: chlordiazePOXIDE 25mg Cap ORAL PRN ×2 (00:51→06:54)
--- NOTE | 2019-03-17 01:00 | History and Physical Report ---
DATE OF ADMISSION: 03/15/2019 CHIEF COMPLAINT: The patient is a 28-year-old male, who presents with a chief complaint of nausea and vomiting. HISTORY OF PRESENT ILLNESS: The patient was admitted to [facility] from 02/14/2019 to 02/18/2019. Please see history and physical dictated at that time along with the discharge summary. The patient underwent an endoscopy on 02/15/2019. Endoscopy showed esophageal varices secondary to alcohol use. The patient states history of present illness began on Friday. The patient began to experience nausea vomiting. The patient was unable to tolerate liquids or solids. The patient denies any hematemesis or melena. The patient denies any blood in the vomitus. The patient presented to [facility]. The patient was admitted with intractable nausea and vomiting. REVIEW OF SYSTEMS: CONSTITUTIONAL: The patient denies weight loss or weight gain. The patient denies fevers or chills. HEENT: The patient denies ear or throat pain. The patient denies headache. CARDIOVASCULAR: The patient denies palpitations or chest pain. CHEST: The patient denies wheeze or shortness of breath. ABDOMEN: The patient complains of bilateral upper quadrant pain, right greater than left. The patient denies constipation. The patient admits to nausea and vomiting as above. The patient denies hematemesis or melena. GENITOURINARY: The patient denies dysuria or increased frequency of urination. NEUROMUSCULAR: The patient denies seizures or generalized weakness. PAST MEDICAL HISTORY: Significant for, 1. Alcohol dependence, in remission. 2. Anemia, presumably iron deficiency. PAST SURGICAL HISTORY: The patient denies. CURRENT MEDICATIONS: 1. Iron sulfate of an unknown dose. 2. Protonix 40 mg p.o. daily. The patient states he may be taking iron, however he is unsure. ALLERGIES: No known drug allergies. SOCIAL HISTORY: The patient is single and lives with his parents. The patient denies tobacco use. The patient denies alcohol use having quit on 02/14/2019 during the previous hospitalization. 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 PHYSICAL EXAMINATION: VITAL SIGNS: Temperature 98.8, respirations 18, pulse 76, and blood pressure 118/52. GENERAL: The patient is a well-developed and well-nourished male, in no apparent distress. HEENT: Eyes, pupils are equal and responsive to light and accommodation. Extraocular movements are intact. NECK: Supple without lymphadenopathy. CHEST: Lungs are clear to auscultation bilaterally without wheezes or rales. CARDIOVASCULAR: Regular rhythm and rate. S1 and S2 are normal without murmurs, rubs, or gallops. ABDOMEN: Soft, nontender, and nondistended. Positive bowel sounds. No evidence of hepatosplenomegaly. Currently, no rebound or guarding noted. EXTREMITIES: Negative for clubbing, cyanosis, or edema. RECTAL/GENITAL: Refused. NEUROLOGIC: Cranial nerves II through XII are grossly intact without focal deficits. Motor strength is 5/5 bilaterally. Deep tendon reflexes are 2+ plantar. LABORATORY STUDIES: WBC 16.6, hemoglobin 9.3, hematocrit 35.8, and platelets 91,000. Sodium 139, potassium 3.6, chloride 98, CO2 23, BUN 10, creatinine 0.9, and glucose 166. Total bilirubin elevated at 6.4. Direct bilirubin elevated at 4.7. AST elevated at 283. Alkaline phosphatase elevated at 901. Serum ammonia level elevated at 54. A KUB of the abdomen failed to demonstrate free obstruction. An abdominal ultrasound is pending. CT of the abdomen is pending. ASSESSMENT: This is a 28-year-old male. 1. Nausea with vomiting. 2. History of esophageal varices. 3. Elevated liver function tests. 4. Alcohol dependence, in remission. 5. Thrombocytopenia. TREATMENT: 1. Nausea/vomiting/abdominal pain. A Gastroenterology consultation has been obtained with Dr. Luis Armando Victoria. A CT scan of the abdomen is pending. Given elevated liver function tests, the patient may have cholelithiasis. We will follow recommendations of Gastroenterology. 2. Elevated liver function tests. As above, a Gastroenterology consultation has been obtained with Dr. Luis Armando Victoria. A CT scan of the abdomen is pending. 3. History of esophageal varices. 4. History of alcohol dependence, in remission. 5. Thrombocytopenia. This may be secondary to chronic alcohol dependence. Lee Rangel M.D. DR: LEONCIO JOB#: [id number] CC:
[2019-03-17] MEDS: D5 1/2NS 1,000 ML IV SCH (01:40)
[2019-03-17 04:00] VITALS: BP 117/70
[2019-03-17 06:47] LABS: HEMATOCRIT 30.3 % (42.0-52.0); HEMOGLOBIN 9.7 G/DL (14.2-18.0); MEAN CORPUSCULAR VOLUME 86 FL (80-99); PLATELET COUNT 50 K/UL (150-450); RED BLOOD COUNT 3.51 M/UL (4.70-6.10); WHITE BLOOD COUNT 13.8 K/UL (4.8-10.8)
[2019-03-17 07:30] LABS: ALANINE AMINOTRANSFERASE 35 U/L (12-78); ALBUMIN 2.8 G/DL (3.4-5.0); ALBUMIN/GLOBULIN RATIO 0.6 (1.0-2.7); ALKALINE PHOSPHATASE 688 U/L (46-116); ANION GAP 10 mmol/L (5-15); ASPARTATE AMINO TRANSFERASE 174 U/L (15-37); BILIRUBIN,DIRECT 6.6 MG/DL (0.0-0.3); BILIRUBIN,TOTAL 8.2 MG/DL (0.2-1.0); BLOOD UREA NITROGEN 4 mg/dL (7-18); CALCIUM 8.7 MG/DL (8.5-10.1); CARBON DIOXIDE 23 MMOL/L (21-32); CHLORIDE 101 MMOL/L (98-107); CREATININE 0.7 MG/DL (0.55-1.30); POTASSIUM 3.7 MMOL/L (3.5-5.1); SODIUM 134 MMOL/L (136-145)
--- NOTE | 2019-03-17 07:48 | NUR ---
HAND-OFF: Report given to luis Zuñiga Addendum: 03/17/19 at 0748 by JASIEL TREVINO RN HAND-OFF: Report given to RN. Karin
--- NOTE | 2019-03-17 07:54 | NUR ---
NURSE NOTES: Received patient from Matthew PALACIOS in bed, no s/s of vomiting or DT. Patient denies pain. Patient is NPO for abdominal ultrasound. Bed is in lowest position. IV is intact. Call light is within reach. Will continue with the plan of care.
[2019-03-17 08:00] VITALS: BP 126/63
[2019-03-17] MEDS: Heparin 5000 units/ml inj SUBQ SCH ×2 (08:21→21:00)
--- NOTE | 2019-03-17 10:32 | GI Initial Consult Note ---
History of Present Illness General Date patient seen: March 17, 2019 Time patient seen: 10:32 Reason for Hospitalization: Abdominal Pain Referring physician: YOSELIN MORRIS Reason for Consultation: Cirrhosis Present Illness HPI Patient presents with intractable vomiting and abdominal pain for 2 days. He is unable to keep down liquids. He has been drinking alcohol but stopped 3 days ago. Denies vomiting blood, coffee grounds, hematochezia or melena. He feels weak and has a tremor. He denies recent seizure activity but has had withdrawal seizures in the past. There is decreased urine output and the urine is dark. He denies any rashes. There is no head trauma. He has no unilateral weakness. He is uncertain if he has cirrhosis or liver problems (see below). He is been told he has anemia. See below. He denies suicidal or homicidal ideation. He does feel anxious. Consulted for cirrhosis. Patient seen, awake alert and oriented x4 no apparent distress. No active signs and symptoms of nausea vomiting. Patient denies any current abdominal pain. The patient was seen here approximately 1 month ago status post EGD diagnosed with esophageal varices status post banding x4 and portal gastropathy. The patient denied any alcohol use since his last admission , however conflicting report noted in the ER stated that the patient only stopped 3 days prior. The patient presents today with elevated LFTs. Abdominal ultrasound and CT pending. Labs reviewed; WBC 13.8, hemoglobin 9.7. Recently discharged from the hospital. Discharge diagnoses: Acute GI bleed due to esophageal varices -status post variceal banding Severe anemia status post multiple transfusion Single seizure event, likely due to severe anemia and hypoperfusion - temporarily treated with Keppra Alcohol dependence Iron deficiency anemia Elevated LFTs Portal hypertensive gastropathy Status post EGD Alcoholic liver cirrhosis Hypokalemia Leukocytosis SUMMARY OF FINDINGS: 1. Esophageal varices, status post banding x4. 2. Portal hypertensive gastropathy. RECOMMENDATIONS: Continue on octreotide drip. We will start tapering off tomorrow. Change Protonix drip to q.12 h. Keep the patient NPO for today. We will start liquid diet tomorrow and advance as tolerated. Home Meds Reported Medications Pantoprazole Sodium (PROTONIX) 20 Mg Tablet.dr, 40 MG ORAL DAILY for 30 Days, TAB 02/18/19 Allergies: Coded Allergies: No Known Allergies (Unverified , 04/26/18) Patient History History Provided By: Patient, Medical Record Social History: Reports: alcohol use Review of Systems All Other Systems: negative except mentioned in HPI Physical Exam Vital Signs Date Time Temp Pulse Resp B/P (MAP) Pulse Ox O2 Delivery O2 Flow Rate FiO2 03/15/19 10:28 98.1 125 22 124/70 (88) 98 03/15/19 11:13 Room Air Sp02 EP Interpretation: reviewed, normal Labs Laboratory Tests Test 03/17/19 06:07 White Blood Count 13.8 K/UL (4.8-10.8) H Red Blood Count 3.51 M/UL (4.70-6.10) L Hemoglobin 9.7 G/DL (14.2-18.0) L Hematocrit 30.3 % (42.0-52.0) L Mean Corpuscular Volume 86 FL (80-99) Mean Corpuscular Hemoglobin 27.6 PG (27.0-31.0) Mean Corpuscular Hemoglobin Concent 32.0 G/DL (32.0-36.0) Red Cell Distribution Width 15.0 % (11.6-14.8) H Platelet Count 50 K/UL (150-450) L Mean Platelet Volume 8.3 FL (6.5-10.1) Neutrophils (%) (Auto) % (45.0-75.0) Lymphocytes (%) (Auto) % (20.0-45.0) Monocytes (%) (Auto) % (1.0-10.0) Eosinophils (%) (Auto) % (0.0-3.0) Basophils (%) (Auto) % (0.0-2.0) Neutrophils % (Manual) Pending Lymphocytes % (Manual) Pending Platelet Estimate Pending Platelet Morphology Pending Sodium Level 134 MMOL/L (136-145) L Potassium Level 3.7 MMOL/L (3.5-5.1) Chloride Level 101 MMOL/L (98-107) Carbon Dioxide Level 23 MMOL/L (21-32) Anion Gap 10 mmol/L (5-15) Blood Urea Nitrogen 4 mg/dL (7-18) L Creatinine 0.7 MG/DL (0.55-1.30) Estimat Glomerular Filtration Rate > 60 mL/min (>60) Glucose Level 120 MG/DL (74-106) H Calcium Level 8.7 MG/DL (8.5-10.1) Total Bilirubin 8.2 MG/DL (0.2-1.0) H Direct Bilirubin 6.6 MG/DL (0.0-0.3) H Aspartate Amino Transf (AST/SGOT) 174 U/L (15-37) H Alanine Aminotransferase (ALT/SGPT) 35 U/L (12-78) Alkaline Phosphatase 688 U/L (46-116) H Total Protein 7.6 G/DL (6.4-8.2) Albumin 2.8 G/DL (3.4-5.0) L Globulin 4.8 g/dL Albumin/Globulin Ratio 0.6 (1.0-2.7) L General Appearance: well appearing, no apparent distress, alert Head: normocephalic EENT: PERRL/EOMI, normal ENT inspection Neck: supple Respiratory: normal breath sounds, no respiratory distress Cardiovascular: normal rate Gastrointestinal: normal inspection, non tender, soft, normal bowel sounds, non -distended Rectal: deferred Genitourinary: deferred Musculoskeletal: normal inspection, back normal Neurologic: normal inspection, alert, oriented x3, responsive Psychiatric: normal inspection, judgement/insight normal, memory normal Skin: normal inspection, normal color, no rash, warm/dry, palpation normal, well hydrated Lymphatic: normal inspection, no adenopathy Current Medications Current Medications Medications (Trade) Dose Ordered Sig/Solis Route PRN Reason Start Time Stop Time Status Last Admin Dose Admin Acetaminophen (Tylenol) 650 mg Q4H PRN ORAL fever 03/15/19 12:57 04/14/19 12:56 Barium Sulfate (Readi-Cat 2) 450 ml NOW PRN ORAL Radiology Procedure 03/16/19 17:00 03/18/19 16:52 Chlordiazepoxide (Librium) 25 mg Q6H PRN ORAL Agitation 03/15/19 13:00 03/22/19 12:59 03/17/19 06:54 Dextrose (Dextrose 50%) 25 ml Q30M PRN IV Hypoglycemia 03/15/19 12:57 04/14/19 12:56 Dextrose (Dextrose 50%) 50 ml Q30M PRN IV Hypoglycemia 03/15/19 12:57 04/14/19 12:56 Dextrose/Sodium Chloride 1,000 ml @ 75 mls/hr [id number] IV 03/16/19 23:00 04/15/19 22:59 03/17/19 01:40 Folic Acid 1 mg/ Magnesium Sulfate 2000 mg/ Multivitamins 10 ml/Potassium Chloride/Sodium Chloride 1,014.2 ml @ 124.876 mls/hr Q24H IV 03/15/19 15:00 04/14/19 14:59 03/16/19 14:10 Heparin Sodium (Porcine) (Heparin 5000 units/ml) 5,000 units EVERY 12 HOURS SUBQ 03/15/19 21:00 04/14/19 20:59 Iopamidol (Isovue-300 100ml) 100 ml NOW PRN INJ Radiology Procedure 03/16/19 17:00 03/18/19 23:59 Lorazepam (Ativan 2mg/ml 1ml) 2 mg Q1H PRN IV seizures 03/15/19 12:59 03/22/19 12:58 Morphine Sulfate (Morphine Sulfate) 1 mg Q4H PRN IVP For Pain 03/15/19 12:59 03/22/19 12:58 03/15/19 20:47 Ondansetron HCl (Zofran) 4 mg Q6H PRN IVP Nausea & Vomiting 03/15/19 12:57 04/14/19 12:56 Pantoprazole (Protonix) 40 mg DAILY ORAL 03/16/19 18:00 04/15/19 17:59 03/17/19 08:21 Polyethylene Glycol (Miralax) 17 gm HSPRN PRN ORAL Constipation 03/15/19 21:00 04/14/19 20:59 Thiamine HCl 100 mg/Dextrose 56 ml @ 112 mls/hr Q24H IV 03/16/19 15:00 04/15/19 14:59 03/16/19 14:10 Zolpidem Tartrate (Ambien) 5 mg HSPRN PRN ORAL Insomnia 03/15/19 21:00 03/22/19 20:59 GI: Plan Problems: (1) Alcoholic cirrhosis (2) Alcohol abuse (3) Acute delirium (4) GI (gastrointestinal bleed) (5) Alcohol dependence (6) Abdominal pain (7) Liver failure (8) Abnormal LFTs (liver function tests) (9) Anemia Plan EGD performed on February 15, 2019, diagnosed with esophageal varices status post banding x4 Portal gastropathy Esophageal varices Mild ammonia level elevation EGD scheduled for tomorrow. -Clear liquid diet, n.p.o. at midnight. -Hold all blood thinners Follow-up abdominal pelvis CT and abdominal ultrasound Repeat LFTs Patient instructed to avoid alcohol Low-dose lactulose + Xifaxan Will follow with additional recommendations postprocedure Discussed with Dr. Victoria. Thank you for this patient referral, we will follow. The patient was seen and examined at bedside and all new and available data was reviewed in the patients chart. I agree with the above findings, impression and plan. (Patient seen earlier today. Signature stamp does not reflect patient encounter time.). - MD Chikis MartinezYavapai Regional Medical CenterSelene FORMAN March 17, 2019 10:31
--- NOTE | 2019-03-17 10:42 | Pulmonology Progress Note ---
Assessment/Plan Problems: (1) Acute delirium (2) GI (gastrointestinal bleed) (3) Alcoholic cirrhosis (4) Alcohol abuse Assessment/Plan bilirubin muriel to 8 H/H stable scheduled for EGD and CT symptomatic treatment Subjective ROS Limited/Unobtainable: No Constitutional: Reports: no symptoms HEENT: Repors: no symptoms Respiratory: Reports: no symptoms Allergies: Coded Allergies: No Known Allergies (Unverified , 04/26/18) Objective Last 24 Hour Vital Signs Date Time Temp Pulse Resp B/P (MAP) Pulse Ox O2 Delivery O2 Flow Rate FiO2 03/17/19 04:00 99.1 97 18 117/70 (86) 98 03/17/19 04:00 97 03/17/19 00:00 99.7 111 18 117/75 (89) 98 03/17/19 00:00 111 03/16/19 21:00 Room Air 03/16/19 20:00 91 03/16/19 20:00 99.8 91 20 118/80 (93) 96 03/16/19 16:00 108 03/16/19 16:00 98.7 104 18 139/68 (91) 99 03/16/19 12:00 98.3 83 18 116/67 (83) 97 03/16/19 12:00 83 Intake and Output 03/16/19 03/17/19 19:00 07:00 Intake Total 480 ml 400 ml Output Total 1000 ml Balance 480 ml -600 ml Intake Oral 480 ml 400 ml Output Urine Total 1000 ml # Voids 2 General Appearance: WD/WN HEENT: normocephalic Respiratory/Chest: chest wall non-tender, lungs clear Cardiovascular: normal peripheral pulses, normal rate Abdomen: normal bowel sounds, soft, non tender Genitourinary: normal external genitalia Extremities: no cyanosis 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 Complete 03/15/19 14:40 Rectum VRE Culture - Final NO VANCOMYCIN RESISTANT ENTEROCOCCUS ... Complete Laboratory Tests 03/17/19 06:07: White Blood Count 13.8H, Red Blood Count 3.51L, Hemoglobin 9.7L, Hematocrit 30.3L, Mean Corpuscular Volume 86, Mean Corpuscular Hemoglobin 27.6, Mean Corpuscular Hemoglobin Concent 32.0, Red Cell Distribution Width 15.0H, Platelet Count 50L, Mean Platelet Volume 8.3, Neutrophils (%) (Auto) , Lymphocytes (%) (Auto) , Monocytes (%) (Auto) , Eosinophils (%) (Auto) , Basophils (%) (Auto) , Neutrophils % (Manual) [Pending], Lymphocytes % (Manual) [Pending], Platelet Estimate [Pending], Platelet Morphology [Pending], Sodium Level 134L, Potassium Level 3.7, Chloride Level 101, Carbon Dioxide Level 23, Anion Gap 10, Blood Urea Nitrogen 4L, Creatinine 0.7, Estimat Glomerular Filtration Rate > 60, Glucose Level 120H, Calcium Level 8.7, Total Bilirubin 8.2H, Direct Bilirubin 6.6H, Aspartate Amino Transf (AST/SGOT) 174H, Alanine Aminotransferase (ALT/SGPT) 35, Alkaline Phosphatase 688H, Total Protein 7.6, Albumin 2.8L, Globulin 4.8, Albumin/Globulin Ratio 0.6L Current Medications Medications (Trade) Dose Ordered Sig/Solis Route PRN Reason Start Time Stop Time Status Last Admin Dose Admin Acetaminophen (Tylenol) 650 mg Q4H PRN ORAL fever 03/15/19 12:57 04/14/19 12:56 Barium Sulfate (Readi-Cat 2) 450 ml NOW PRN ORAL Radiology Procedure 03/16/19 17:00 03/18/19 16:52 Chlordiazepoxide (Librium) 25 mg Q6H PRN ORAL Agitation 03/15/19 13:00 03/22/19 12:59 03/17/19 06:54 Dextrose (Dextrose 50%) 25 ml Q30M PRN IV Hypoglycemia 03/15/19 12:57 04/14/19 12:56 Dextrose (Dextrose 50%) 50 ml Q30M PRN IV Hypoglycemia 03/15/19 12:57 04/14/19 12:56 Dextrose/Sodium Chloride 1,000 ml @ 75 mls/hr [id number] IV 03/16/19 23:00 04/15/19 22:59 03/17/19 01:40 Folic Acid 1 mg/ Magnesium Sulfate 2000 mg/ Multivitamins 10 ml/Potassium Chloride/Sodium Chloride 1,014.2 ml @ 124.876 mls/hr Q24H IV 03/15/19 15:00 04/14/19 14:59 03/16/19 14:10 Heparin Sodium (Porcine) (Heparin 5000 units/ml) 5,000 units EVERY 12 HOURS SUBQ 03/15/19 21:00 04/14/19 20:59 Iopamidol (Isovue-300 100ml) 100 ml NOW PRN INJ Radiology Procedure 03/16/19 17:00 03/18/19 23:59 Lactulose (Cephulac) 10 gm THREE TIMES A DAY ORAL 03/17/19 13:00 04/16/19 12:59 UNV Lorazepam (Ativan 2mg/ml 1ml) 2 mg Q1H PRN IV seizures 03/15/19 12:59 03/22/19 12:58 Morphine Sulfate (Morphine Sulfate) 1 mg Q4H PRN IVP For Pain 03/15/19 12:59 03/22/19 12:58 03/15/19 20:47 Ondansetron HCl (Zofran) 4 mg Q6H PRN IVP Nausea & Vomiting 03/15/19 12:57 04/14/19 12:56 Pantoprazole (Protonix) 40 mg DAILY ORAL 03/16/19 18:00 04/15/19 17:59 03/17/19 08:21 Polyethylene Glycol (Miralax) 17 gm HSPRN PRN ORAL Constipation 03/15/19 21:00 04/14/19 20:59 Rifaximin (Xifaxan) 550 mg EVERY 12 HOURS ORAL 03/17/19 21:00 03/24/19 20:59 UNV Thiamine HCl 100 mg/Dextrose 56 ml @ 112 mls/hr Q24H IV 03/16/19 15:00 04/15/19 14:59 03/16/19 14:10 Zolpidem Tartrate (Ambien) 5 mg HSPRN PRN ORAL Insomnia 03/15/19 21:00 03/22/19 20:59 Matilde Chery MD March 17, 2019 10:42
--- NOTE | 2019-03-17 10:50 | NUR ---
NURSE NOTES: PATIENT OUT FOR CT ABDOMEN/PELVIS
--- NOTE | 2019-03-17 11:20 | NUR ---
NURSE NOTES: PATIENT BACK ON THE FLOOR
--- NOTE | 2019-03-17 11:23 | Internal Med Progress Note ---
Subjective Date of Service: March 17, 2019 Physician Name Lee Rangel Attending Physician Fracisco Helms MD Current Medications Medications (Trade) Dose Ordered Sig/Solis Route PRN Reason Start Time Stop Time Status Last Admin Dose Admin Acetaminophen (Tylenol) 650 mg Q4H PRN ORAL fever 03/15/19 12:57 04/14/19 12:56 Barium Sulfate (Readi-Cat 2) 450 ml NOW PRN ORAL Radiology Procedure 03/16/19 17:00 03/18/19 16:52 Chlordiazepoxide (Librium) 25 mg Q6H PRN ORAL Agitation 03/15/19 13:00 03/22/19 12:59 03/17/19 06:54 Dextrose (Dextrose 50%) 25 ml Q30M PRN IV Hypoglycemia 03/15/19 12:57 04/14/19 12:56 Dextrose (Dextrose 50%) 50 ml Q30M PRN IV Hypoglycemia 03/15/19 12:57 04/14/19 12:56 Dextrose/Sodium Chloride 1,000 ml @ 75 mls/hr [id number] IV 03/16/19 23:00 04/15/19 22:59 03/17/19 01:40 Folic Acid 1 mg/ Magnesium Sulfate 2000 mg/ Multivitamins 10 ml/Potassium Chloride/Sodium Chloride 1,014.2 ml @ 124.876 mls/hr Q24H IV 03/15/19 15:00 04/14/19 14:59 03/16/19 14:10 Heparin Sodium (Porcine) (Heparin 5000 units/ml) 5,000 units EVERY 12 HOURS SUBQ 03/15/19 21:00 04/14/19 20:59 Iopamidol (Isovue-300 100ml) 100 ml NOW PRN INJ Radiology Procedure 03/16/19 17:00 03/18/19 23:59 Lactulose (Cephulac) 10 gm THREE TIMES A DAY ORAL 03/17/19 13:00 04/16/19 12:59 Lorazepam (Ativan 2mg/ml 1ml) 2 mg Q1H PRN IV seizures 03/15/19 12:59 03/22/19 12:58 Morphine Sulfate (Morphine Sulfate) 1 mg Q4H PRN IVP For Pain 03/15/19 12:59 03/22/19 12:58 03/15/19 20:47 Ondansetron HCl (Zofran) 4 mg Q6H PRN IVP Nausea & Vomiting 03/15/19 12:57 04/14/19 12:56 Pantoprazole (Protonix) 40 mg DAILY ORAL 03/16/19 18:00 04/15/19 17:59 03/17/19 08:21 Polyethylene Glycol (Miralax) 17 gm HSPRN PRN ORAL Constipation 03/15/19 21:00 04/14/19 20:59 Rifaximin (Xifaxan) 550 mg EVERY 12 HOURS ORAL 03/17/19 21:00 03/24/19 20:59 Thiamine HCl 100 mg/Dextrose 56 ml @ 112 mls/hr Q24H IV 03/16/19 15:00 04/15/19 14:59 03/16/19 14:10 Zolpidem Tartrate (Ambien) 5 mg HSPRN PRN ORAL Insomnia 03/15/19 21:00 03/22/19 20:59 Allergies: Coded Allergies: No Known Allergies (Unverified , 04/26/18) ROS Limited/Unobtainable: No Constitutional: Reports: no symptoms HEENT: Reports: no symptoms Cardiovascular: Reports: no symptoms Respiratory: Reports: no symptoms Gastrointestinal/Abdominal: Reports: no symptoms Genitourinary: Reports: no symptoms Neurologic/Psychiatric: Reports: no symptoms Subjective 28 YO M admitted with nausea, vommiting and abdominal pain. Cover for Int [place]- Dr Helms. Await endoscopy 03/18/19. Objective Last Vital Signs Date Time Temp Pulse Resp B/P (MAP) Pulse Ox O2 Delivery O2 Flow Rate FiO2 03/17/19 08:00 87 03/17/19 08:00 99.2 18 126/63 (84) 98 03/16/19 21:00 Room Air Laboratory Tests Test 03/17/19 06:07 White Blood Count 13.8 K/UL (4.8-10.8) H Red Blood Count 3.51 M/UL (4.70-6.10) L Hemoglobin 9.7 G/DL (14.2-18.0) L Hematocrit 30.3 % (42.0-52.0) L Mean Corpuscular Volume 86 FL (80-99) Mean Corpuscular Hemoglobin 27.6 PG (27.0-31.0) Mean Corpuscular Hemoglobin Concent 32.0 G/DL (32.0-36.0) Red Cell Distribution Width 15.0 % (11.6-14.8) H Platelet Count 50 K/UL (150-450) L Mean Platelet Volume 8.3 FL (6.5-10.1) Neutrophils (%) (Auto) % (45.0-75.0) Lymphocytes (%) (Auto) % (20.0-45.0) Monocytes (%) (Auto) % (1.0-10.0) Eosinophils (%) (Auto) % (0.0-3.0) Basophils (%) (Auto) % (0.0-2.0) Neutrophils % (Manual) Pending Lymphocytes % (Manual) Pending Platelet Estimate Pending Platelet Morphology Pending Sodium Level 134 MMOL/L (136-145) L Potassium Level 3.7 MMOL/L (3.5-5.1) Chloride Level 101 MMOL/L (98-107) Carbon Dioxide Level 23 MMOL/L (21-32) Anion Gap 10 mmol/L (5-15) Blood Urea Nitrogen 4 mg/dL (7-18) L Creatinine 0.7 MG/DL (0.55-1.30) Estimat Glomerular Filtration Rate > 60 mL/min (>60) Glucose Level 120 MG/DL (74-106) H Calcium Level 8.7 MG/DL (8.5-10.1) Total Bilirubin 8.2 MG/DL (0.2-1.0) H Direct Bilirubin 6.6 MG/DL (0.0-0.3) H Aspartate Amino Transf (AST/SGOT) 174 U/L (15-37) H Alanine Aminotransferase (ALT/SGPT) 35 U/L (12-78) Alkaline Phosphatase 688 U/L (46-116) H Total Protein 7.6 G/DL (6.4-8.2) Albumin 2.8 G/DL (3.4-5.0) L Globulin 4.8 g/dL Albumin/Globulin Ratio 0.6 (1.0-2.7) L Microbiology Date/Time Source Procedure Growth Status 03/15/19 11:29 Blood Blood Culture - Preliminary NO GROWTH AFTER 24 HOURS Resulted 03/15/19 11:29 Blood Blood Culture - Preliminary NO GROWTH AFTER 24 HOURS Resulted 03/15/19 14:40 Nasal Nares Left MRSA Culture - Final NO METHICILLIN RESISTANT STAPH AUREUS... Complete 03/15/19 14:40 Rectum VRE Culture - Final NO VANCOMYCIN RESISTANT ENTEROCOCCUS ... Complete Intake and Output 03/16/19 03/17/19 19:00 07:00 Intake Total 480 ml 400 ml Output Total 1000 ml Balance 480 ml -600 ml Intake Oral 480 ml 400 ml Output Urine Total 1000 ml # Voids 2 Objective PHYSICAL EXAMINATION: VITAL SIGNS: Temperature 98.8, respirations 18, pulse 76, and blood pressure 118/52. GENERAL: The patient is a well-developed and well-nourished male, in no apparent distress. HEENT: Eyes, pupils are equal and responsive to light and accommodation. Extraocular movements are intact. NECK: Supple without lymphadenopathy. CHEST: Lungs are clear to auscultation bilaterally without wheezes or rales. CARDIOVASCULAR: Regular rhythm and rate. S1 and S2 are normal without murmurs, rubs, or gallops. ABDOMEN: Soft, nontender, and nondistended. Positive bowel sounds. No evidence of hepatosplenomegaly. Currently, no rebound or guarding noted. EXTREMITIES: Negative for clubbing, cyanosis, or edema. RECTAL/GENITAL: Refused. NEUROLOGIC: Cranial nerves II through XII are grossly intact without focal deficits. Motor strength is 5/5 bilaterally. Deep tendon reflexes are 2+ plantar. Assessment/Plan Assessment/Plan ASSESSMENT: This is a 28-year-old male. 1. Nausea with vomiting. 2. History of esophageal varices. 3. Elevated liver function tests. 4. Alcohol dependence, in remission. 5. Thrombocytopenia. 6. History of esophageal varices TREATMENT: 1. Nausea/vomiting/abdominal pain. A Gastroenterology consultation has been obtained with Dr. Luis Armando Victoria. A CT scan of the abdomen is pending. Given elevated liver function tests, the patient may have cholelithiasis. We will follow recommendations of Gastroenterology. 2. Elevated liver function tests. As above, a Gastroenterology consultation has been obtained with Dr. Luis Armando Victoria. A CT scan of the abdomen is pending. 3. History of esophageal varices. 4. History of alcohol dependence, in remission. 5. Thrombocytopenia. This may be secondary to chronic alcohol dependence. 6. Endoscopy 03/18/19 Lee Rangel MD March 17, 2019 11:23
[2019-03-17 11:49] LABS: AMYLASE 121 U/L (25-115)
[2019-03-17 12:00] VITALS: BP 110/67
--- NOTE | 2019-03-17 13:09 | Diagnostic Imaging Report ---
Clinical Indication: Abdominal pain, nausea with vomiting, abnormal liver function tests Technique: Patient ingested oral contrast IV administration nonionic contrast. Venous phase spiral acquisition obtained through the abdomen and pelvis. Multiplanar reconstructions were generated. Total dose length product 693.17 mGycm. CTDIvol(s) 12.57 mGy. Dose reduction achieved using automated exposure control Comparison: 09/01/2018 noncontrast study Findings: As previously, the liver is enlarged. However, the previously demonstrated diffuse hepatic hypoattenuation is no longer evident; liver currently attenuates normally. Is not focal abnormality is demonstrated. The gallbladder is nondistended. The wall appears somewhat edematous. Questionable areas of high attenuation within the gallbladder lumen could represent small gallstones. No biliary ductal dilatation. There are recannulated paraumbilical vein type varices demonstrated, as well as small perigastric and periesophageal varices. These are more clearly demonstrated on the current noncontrast study than previously. The spleen is mildly enlarged, measuring 13 cm long axis dimension. There is a small amount of free fluid seen within the pelvis. No loculated fluid collections are demonstrated. The pancreas is unremarkable. The adrenals and kidneys are unremarkable. No retroperitoneal or mesenteric mass or adenopathy. No pelvic mass or adenopathy. The bladder is mildly thick walled. This finding is not evident previously. There is some infiltration of the pelvic fat superior to the dome of the bladder. The appendix is normal. There is a small sliding-type hiatal hernia. The stomach and duodenum are otherwise unremarkable except for the above described varices. No small bowel distention. Contrast has traversed the entirety some the small bowel and is seen within the proximal colon. No evidence of diverticulosis or diverticulitis. No free intraperitoneal gas demonstrated. The included lung bases demonstrate some posterior atelectatic changes. The bones are unremarkable. Impression: Hepatomegaly. Although there is no surface nodularity to suggest cirrhosis, the presence of varices, free pelvic fluid, and mild splenomegaly suggests portal hypertension Note that previously demonstrated hepatic steatosis has resolved Mildly thick-walled bladder. This, and infiltration of the pelvic fat superior to the bladder dome, suggests cystitis. Small sliding-type hiatal hernia The CT scanner at [facility] is accredited by the [employer] and the scans are performed using protocols designed to limit radiation exposure to as low as reasonably achievable to attain images of sufficient resolution adequate for diagnostic evaluation.
[2019-03-17] MEDS: Lactulose 10gm/15ml UDC ORAL SCH ×2 (13:14→17:42)
--- NOTE | 2019-03-17 15:14 | Diagnostic Imaging Report ---
Indication: Abdominal pain Technique: Mcwilliams-scale and duplex images of the upper abdomen were obtained Comparison: 02/15/2018, also abdominal pelvic CT dated 03/17/2019 Findings: Gallbladder is contracted. The gallbladder wall is markedly thickened, measuring 6 mm in diameter. Echogenic nonshadowing foci are seen adjacent to the gallbladder wall, similar to those described previously. Sonographic Victor's sign is negative. Common bile duct measures 4 mm in diameter. No intrahepatic biliary ductal dilatation. Liver demonstrates coarsened patchy echogenicity, but is less hyperechoic than previously demonstrated Portal vein and hepatic veins are patent. However, recannulized para umbilical vein are seen in the region of the ligamentum teres. No definite surface nodularity. The liver is enlarged Pancreas is incompletely visualized due to overlying bowel gas, visualized portions are unremarkable. Spleen is enlarged, measuring 16.1 cm long axis dimension Left kidney measures 11 cm in length. Right kidney measures 11.4 cm length. Both kidneys demonstrate normal echogenicity. There is no hydronephrosis. No focal abnormality . Abdominal aorta is partially obscured by bowel gas, visualized portions are non-aneurysmal . Impression: Hyperechoic foci within the gallbladder lumen, also previously described, most likely gallbladder polyps as they are nonshadowing. Recommend short interval sonographic surveillance as clinically indicated. Possibility of gallstones should also be considered Thickened gallbladder wall. Most likely edema secondary to portal hypertension,, exaggerated by nondistention of the gallbladder. Acute cholecystitis could also cause this, but is less likely. Consider hepatobiliary scan if there is high clinical suspicion Hepatomegaly. Splenomegaly Varices, also previously reported on recent CT scan Negative for dilated bile duct Note obscuration of portions of the abdominal aorta
--- NOTE | 2019-03-17 15:31 | NUR ---
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
[2019-03-17 16:00] VITALS: BP 112/61
[2019-03-17] MEDS: Folic Acid 1 MG, Magnesium Sulfate 2,000 MG, Multivitamin - 12 Injection 10 ML in NS w/... IV SCH (16:31)
[2019-03-17] MEDS: Thiamine HCl 100 MG in D5W 55 ML IV SCH (16:31)
--- NOTE | 2019-03-17 17:08 | NUR ---
CASE MANAGEMENT:REVIEWS 03/17/19 SI: NAUSEA AND VOMITING ACUTE DELIRIUM 99.7 111 18 117/75 98% ON RA WBC+13.8 H/H-9.7/30.3 PLT-50 IS: RIFAXIMIN PO Q12 LACTULOSE PO TID IVF@75/HR IV THIAMINE Q24 IV BANANA BAG HEPARIN SQ Q12 : TELEMETRY PLAN: EGD
--- NOTE | 2019-03-17 19:30 | NUR ---
NURSE NOTES: Received patient from Karin PALACIOS. Patient is awake and oriented x4. Patient is on room air tolerating well, showing no signs of distress. IV site is Right AC 20g patent and asymptomatic. Bed is locked, placed in lowest position, side rails up x3, call light within reach, all needs attended to. Will continue to monitor.
--- NOTE | 2019-03-17 19:30 | NUR ---
HAND-OFF: Report given to Darrel PALACIOS.Endorsed plan of care.
[2019-03-17 20:00] VITALS: BP 118/78
[2019-03-18] VITALS: BP 127/80
[2019-03-18] MEDS: D5 1/2NS 1,000 ML IV SCH (01:50)
[2019-03-18 04:00] VITALS: BP 121/77
[2019-03-18 05:32] LABS: HEMATOCRIT 29.2 % (42.0-52.0); HEMOGLOBIN 9.4 G/DL (14.2-18.0); MEAN CORPUSCULAR VOLUME 86 FL (80-99); PLATELET COUNT 48 K/UL (150-450); RED BLOOD COUNT 3.38 M/UL (4.70-6.10); RED CELL DISTRIBUTION WIDTH 15.3 % (11.6-14.8); WHITE BLOOD COUNT 11.6 K/UL (4.8-10.8)
[2019-03-18 05:48] LABS: INR 1.3 (0.9-1.1)
[2019-03-18 06:09] LABS: ALANINE AMINOTRANSFERASE 35 U/L (12-78); ALBUMIN 2.6 G/DL (3.4-5.0); ALBUMIN/GLOBULIN RATIO 0.6 (1.0-2.7); ALKALINE PHOSPHATASE 595 U/L (46-116); ANION GAP 11 mmol/L (5-15); ASPARTATE AMINO TRANSFERASE 116 U/L (15-37); BILIRUBIN,TOTAL 7.2 MG/DL (0.2-1.0); BLOOD UREA NITROGEN 4 mg/dL (7-18); CALCIUM 8.5 MG/DL (8.5-10.1); CARBON DIOXIDE 22 MMOL/L (21-32); CHLORIDE 103 MMOL/L (98-107); CREATININE 0.7 MG/DL (0.55-1.30); POTASSIUM 3.5 MMOL/L (3.5-5.1); SODIUM 136 MMOL/L (136-145)
[2019-03-18 06:10] LABS: BILIRUBIN,DIRECT 6.6 MG/DL (0.0-0.3)
[2019-03-18 06:27] LABS: PHOSPHORUS 3.5 MG/DL (2.5-4.9)
--- NOTE | 2019-03-18 07:13 | NUR ---
HAND-OFF: Report given to Tacos PALACIOS. Patient in stable condition.
--- NOTE | 2019-03-18 07:41 | NUR ---
NURSE NOTES: Received report from PHILIP Montgomery. Patient in bed resting, no active s/s cardiac, respiratory distress noticed at this time. Patient on room air, SR with HR 97, denies pain at this time. Endorsed NPO since midnight for EGD schedule for today 03/18/19. IV site on right AC 18G, asymptomatic, patent, intact, IV fluid running at prescribed rate. Bed in lowest position, side rails upx3, call light within reach. Will continue to monitor.
--- NOTE | 2019-03-18 07:59 | NUR ---
NURSE NOTES: DASIA Larkin made aware patient schedule for EGD today but platelet level trending down to 48 today. No order given at this time, Will continue to monitor.
[2019-03-18 08:00] VITALS: BP 121/80
--- NOTE | 2019-03-18 08:06 | NUR ---
NURSE NOTES: Per DASIA Larkin, it is okay to continue EGD with plt level 48 since patient has liver disease. Will continue to monitor.
[2019-03-18] MEDS: Heparin 5000 units/ml inj SUBQ SCH (08:20)
[2019-03-18] MEDS: Lactulose 10gm/15ml UDC ORAL SCH (08:20)
--- NOTE | 2019-03-18 11:29 | Pulmonology Progress Note ---
Assessment/Plan Problems: (1) Acute delirium (2) GI (gastrointestinal bleed) (3) Alcoholic cirrhosis (4) Alcohol abuse Assessment/Plan bilirubin stable H/H stable ct scan reviewed dc home symptomatic treatment Subjective ROS Limited/Unobtainable: No Constitutional: Reports: no symptoms HEENT: Repors: no symptoms Respiratory: Reports: no symptoms Allergies: Coded Allergies: No Known Allergies (Unverified , 04/26/18) Objective Last 24 Hour Vital Signs Date Time Temp Pulse Resp B/P (MAP) Pulse Ox O2 Delivery O2 Flow Rate FiO2 03/18/19 09:00 Room Air 03/18/19 08:00 98.9 102 20 121/80 (94) 98 03/18/19 08:00 107 03/18/19 04:00 98.8 97 20 121/77 (92) 98 03/18/19 03:25 86 03/18/19 00:00 98.8 95 20 127/80 (96) 98 03/17/19 23:29 90 03/17/19 21:00 Room Air 03/17/19 20:10 82 03/17/19 20:00 99.2 86 20 118/78 (91) 99 03/17/19 16:00 98.4 90 18 112/61 (78) 97 03/17/19 16:00 95 03/17/19 12:00 83 03/17/19 12:00 99.1 83 18 110/67 (81) 97 Intake and Output 03/17/19 03/18/19 19:00 07:00 Output Total 600 ml Balance -600 ml Output Urine Total 600 ml # Voids 2 General Appearance: WD/WN HEENT: normocephalic, atraumatic Respiratory/Chest: chest wall non-tender, lungs clear Cardiovascular: normal peripheral pulses, normal rate Abdomen: normal bowel sounds, soft, non tender Microbiology Date/Time Source Procedure Growth Status 03/15/19 11:29 Blood Blood Culture - Preliminary NO GROWTH AFTER 48 HOURS Resulted 03/15/19 11:29 Blood Blood Culture - Preliminary NO GROWTH AFTER 48 HOURS Resulted 03/15/19 14:40 Nasal Nares Left MRSA Culture - Final NO METHICILLIN RESISTANT STAPH AUREUS... Complete 03/15/19 14:40 Rectum VRE Culture - Final NO VANCOMYCIN RESISTANT ENTEROCOCCUS ... Complete Laboratory Tests 03/18/19 05:15: White Blood Count 11.6H, Red Blood Count 3.38L, Hemoglobin 9.4L, Hematocrit 29.2L, Mean Corpuscular Volume 86, Mean Corpuscular Hemoglobin 27.7, Mean Corpuscular Hemoglobin Concent 32.0, Red Cell Distribution Width 15.3H, Platelet Count 48L, Mean Platelet Volume 7.6, Neutrophils (%) (Auto) , Lymphocytes (%) (Auto) , Monocytes (%) (Auto) , Eosinophils (%) (Auto) , Basophils (%) (Auto) , Differential Total Cells Counted 100, Neutrophils % ( Manual) 81H, Lymphocytes % (Manual) 9L, Monocytes % (Manual) 8, Eosinophils % ( Manual) 1, Basophils % (Manual) 1, Band Neutrophils 0, Platelet Estimate DecreasedL, Platelet Morphology Normal, Anisocytosis 1+, Prothrombin Time 13.8H , Prothromb Time International Ratio 1.3H, Activated Partial Thromboplast Time 29, Sodium Level 136, Potassium Level 3.5, Chloride Level 103, Carbon Dioxide Level 22, Anion Gap 11, Blood Urea Nitrogen 4L, Creatinine 0.7, Estimat Glomerular Filtration Rate > 60, Glucose Level 123H, Calcium Level 8.5, Phosphorus Level 3.5, Magnesium Level 1.9, Total Bilirubin 7.2H, Direct Bilirubin 6.6H, Aspartate Amino Transf (AST/SGOT) 116H, Alanine Aminotransferase (ALT/SGPT) 35, Alkaline Phosphatase 595H, Total Protein 7.2, Albumin 2.6L, Globulin 4.6, Albumin/Globulin Ratio 0.6L Current Medications Medications (Trade) Dose Ordered Sig/Solis Route PRN Reason Start Time Stop Time Status Last Admin Dose Admin Acetaminophen (Tylenol) 650 mg Q4H PRN ORAL fever 03/15/19 12:57 04/14/19 12:56 Barium Sulfate (Readi-Cat 2) 450 ml NOW PRN ORAL Radiology Procedure 03/16/19 17:00 03/18/19 16:52 Chlordiazepoxide (Librium) 25 mg Q6H PRN ORAL Agitation 03/15/19 13:00 03/22/19 12:59 03/17/19 06:54 Dextrose (Dextrose 50%) 25 ml Q30M PRN IV Hypoglycemia 03/15/19 12:57 04/14/19 12:56 Dextrose (Dextrose 50%) 50 ml Q30M PRN IV Hypoglycemia 03/15/19 12:57 04/14/19 12:56 Dextrose/Sodium Chloride 1,000 ml @ 75 mls/hr [id number] IV 03/16/19 23:00 04/15/19 22:59 03/18/19 01:50 Folic Acid 1 mg/ Magnesium Sulfate 2000 mg/ Multivitamins 10 ml/Potassium Chloride/Sodium Chloride 1,014.2 ml @ 124.876 mls/hr Q24H IV 03/15/19 15:00 04/14/19 14:59 03/17/19 16:31 Heparin Sodium (Porcine) (Heparin 5000 units/ml) 5,000 units EVERY 12 HOURS SUBQ 03/15/19 21:00 04/14/19 20:59 Iopamidol (Isovue-300 100ml) 100 ml NOW PRN INJ Radiology Procedure 03/16/19 17:00 03/18/19 23:59 Lactulose (Cephulac) 10 gm THREE TIMES A DAY ORAL 03/17/19 13:00 04/16/19 12:59 03/18/19 08:20 Lorazepam (Ativan 2mg/ml 1ml) 2 mg Q1H PRN IV seizures 03/15/19 12:59 03/22/19 12:58 Morphine Sulfate (Morphine Sulfate) 1 mg Q4H PRN IVP For Pain 03/15/19 12:59 03/22/19 12:58 03/15/19 20:47 Ondansetron HCl (Zofran) 4 mg Q6H PRN IVP Nausea & Vomiting 03/15/19 12:57 04/14/19 12:56 Pantoprazole (Protonix) 40 mg DAILY ORAL 03/16/19 18:00 04/15/19 17:59 03/18/19 08:20 Polyethylene Glycol (Miralax) 17 gm HSPRN PRN ORAL Constipation 03/15/19 21:00 04/14/19 20:59 Rifaximin (Xifaxan) 550 mg EVERY 12 HOURS ORAL 03/17/19 21:00 03/24/19 20:59 03/18/19 08:20 Thiamine HCl 100 mg/Dextrose 56 ml @ 112 mls/hr Q24H IV 03/16/19 15:00 04/15/19 14:59 03/17/19 16:31 Zolpidem Tartrate (Ambien) 5 mg HSPRN PRN ORAL Insomnia 03/15/19 21:00 03/22/19 20:59 Matilde Chery MD March 18, 2019 11:29
--- NOTE | 2019-03-18 11:52 | NUR ---
DISCHARGE PLAN DISCHARGE ORDER NOTED PATIENT WILL RETURN TO [facility]
--- NOTE | 2019-03-18 12:16 | NUR ---
*-* INSURANCE *-* UPDATED CLINICALS HAVE BEEN FAXED TO: [employer] NO DRAWING IN HAND ASSIGNED AT THIS TIME P- [phone]...REVIEW/CLINICAL
--- NOTE | 2019-03-18 12:20 | NUR ---
NURSE NOTES: Patient discharged to home per Dr. Chery. Per Dr. Chery, EGD can be done in out-patient. Patient's ID removed and placed in shredder. IV removed, site monitor returned to cardiac monitor. Patient taking bus per patient's preference in a stable condition. Patient discharged with all belongings. Family member made aware.
--- NOTE | 2019-03-18 13:19 | Discharge Summary ---
Discharge Summary Discharge Summary _ DATE OF ADMISSION: 03/15/2019 DATE OF DISCHARGE: 03/18/2019 DISCHARGED BY: Dr. Helms REASON FOR ADMISSION: 28 years old male with past medical history of alcoholic liver disease, history of GI bleeding secondary to esophageal varices , status post variceal banding , presented with intractable vomiting and abdominal pain for 2 days. Patient reported that he was unable to keep down liquids. Patient stopped drinking alcohol 3 days ago. He denied blood or coffee-ground emesis. He denied melena. Patient reported feeling weak and tremulous. He denied recent seizure activity, but did have withdrawal seizure in the past. Upon evaluation noted leukocytosis with WBC 16.6 , hemoglobin 11.3, hematocrit 35.8. INR 1.3. Stable electrolytes and renal parameters. Glucose 166 Magnesium 1.2 AST 283 , ALT 44. Total bilirubin 6.4, direct bilirubin 4.7 . Ammonia 54. Troponin negative. CK 318. EKG revealed sinus tachycardia, no acute ischemic changes . Albumin 3.2 . Alcohol level 17 . Salicylate and Tylenol level undetectable . Urinalysis revealed +3 ketones, +3 bilirubin, +2 leukocyte esterase , pyuria and few bacteria. Urine toxicology screen was positive for opiates. Chest x-ray revealed no acute cardiopulmonary pathology. Abdominal x-ray demonstrated nonobstructive nonspecific bowel gas pattern. No free air. Patient started on IV fluids along with thiamine , received analgesia, IV Pepcid and Ativan . Seizure precaution maintained. Magnesium replaced. Empiric antibiotic provided , given leukocytosis , however no obvious significant infectious etiology was uncovered. Patient also received vitamin K . Patient was subsequently admitted for further management to telemetry floor. CONSULTANTS: pulmonary/sterilisation technician Dr. Chery GI specialist Dr. Victoria [facility] COURSE: Patient admitted to telemetry floor. [employer] and GI specialist followed. Patient initially was kept n.p.o., start on the IV fluids with thiamine and folate. Librium was on board as needed for withdrawal symptoms. Seizure precaution maintained. Ativan was on board for seizure breakthrough. Patient started on GI prophylaxis with IV PPI. Magnesium was replaced . Patient had EGD recently done in January 2019 , where he was diagnosed with esophageal varices , status post banding x4. Patient also at that time noted to have portal gastropathy. Patient started on clear liquid diet . Patient was counseled on alcohol avoidance. Patient started on low-dose of lactulose and Xifaxan secondary to mild ammonia elevation. Abdominal ultrasound demonstrated thickened gallbladder wall, most likely edema secondary to portal hypertension, exacerbated by non- distention of the gallbladder. No evidence of dilated bile ducts. Noted varices , also previously reported on recent CT scan. Hepatomegaly and splenomegaly. CT of the abdomen and pelvis demonstrated hepatomegaly, no surface nodularity to suggest cirrhosis. The presence of varices, free pelvic fluid , and mild splenomegaly suggested portal hypertension. Mild thick-walled bladder . This and infiltration of the pelvic fat , superior to the bladder dome, suggestive of cystitis. Small sliding hiatal hernia. DVT prophylaxis provided. Bowel regimen instituted. Pain management was addressed. Patient declined having EGD at this time. EGD can be done as outpatient. Hemoglobin and hematocrit remained stable . Prior to discharge hemoglobin 9.4, hematocrit 29.2. No evidence of bleeding . Magnesium 1.9 after replacement. Bilirubin remained elevated . AST trending down . Lipase and amylase within normal limits . Symptomatic treatment was recommended by GI specialist. Platelet count closely monitored. Thrombocytopenia likely due to alcohol. Leukocytosis trended down, patient remained afebrile. No evidence of infection. Leucocytosis was likely reactive. Patient clinically stabilized and was ready for discharge home. FINAL DIAGNOSES: Liver failure/ Acute and subacute hepatic failure without coma -present on admission Hypomagnesemia Alcohol abuse Acute delirium Alcoholic cirrhosis Abnormal LFT Anemia Thrombocytopenia History of esophageal varices Coagulopathy DISCHARGE MEDICATIONS: See Medication Reconciliation list. DISCHARGE INSTRUCTIONS: Patient was discharged home .. Follow up with primary care provider in one week. I have been assigned to dictate discharge summary for this account. I was not involved in the patient's management. Anna Mejía NP March 18, 2019 13:19
== END 2019-03-18 12:37 | disposition home or self-care (01) | DRG 279 ==
LOC: EMR 10:53 → 2E 12:01 → EDBEDREQ 12:22
DX: K72.90 Hepatic failure, unspecified without coma (principal); D68.4 Acquired coagulation factor deficiency; D69.6 Thrombocytopenia, unspecified; E83.42 Hypomagnesemia; K92.2 Gastrointestinal hemorrhage, unspecified; F10.21 Alcohol dependence, in remission; D50.9 Iron deficiency anemia, unspecified; R41.0 Disorientation, unspecified; K70.30 Alcoholic cirrhosis of liver without ascites
CPT/HCPCS: 36415; 71045; 74018; 74177; 76700; 80053; 80307; 80329; 81003; 82140; 82150; 82248; 82550; 82962; 83690; 83735; 84100; 84484; 85007; 85025; 85610; 85730; 87040; 87081; 96361; 96365; 96367; 96372; 96375; 99285; J2405

== ENCOUNTER 2019-05-01 12:21 | Inpatient (IN) | payer OTHER ==
[~2019-05-01] VITALS: Ht 167.6 cm; Wt 72.6 kg
[2019-05-01] VITALS (7 sets, daily range): BP systolic 102–135; BP diastolic 53–68
[2019-05-01] MEDS ORDERED: NKM (12:31)
--- NOTE | 2019-05-01 12:43 | NUR ---
ED Nurse Note: pt walked in due to upper abdominal pain started last night accompanied by vomiting. pt stated he has history of pancreatitis and havent went to his pcp. pt looks pale,denies blood in urine nor vomitng blood. pt stated that the last time he vomied was before coming to the ed. denies diarrhea or constipation. will continue to monitor.
[2019-05-01] MEDS ORDERED: Isovue-300 100ml vial INJ PRN (12:45)
--- NOTE | 2019-05-01 12:57 | NUR ---
ED Nurse Note: pt medicatedf as oreded. ivf started. pt able to tolerate iv meds. will continue to monitor
[2019-05-01 13:00] LABS: HEMATOCRIT 13.2 % (42.0-52.0); MEAN CORPUSCULAR VOLUME 73 FL (80-99); PLATELET COUNT 341 K/UL (150-450); RED BLOOD COUNT 1.81 M/UL (4.70-6.10); RED CELL DISTRIBUTION WIDTH 17.2 % (11.6-14.8); WHITE BLOOD COUNT 9.1 K/UL (4.8-10.8)
[2019-05-01 13:01] LABS: HEMOGLOBIN 3.9 G/DL (14.2-18.0)
--- NOTE | 2019-05-01 13:05 | Emergency Room Report ---
History of Present Illness General Chief Complaint: Abdominal Pain Source: Patient Present Illness HPI Patient presents with complaints of dizziness lightheadedness Patient reports increased nausea vomiting he has had previous history of alcohol disease also pancreatitis Denies any chest pain or shortness of breath Denies any blood in his stool Denies any syncopal episodes Denies any recent travel or trauma patient symptoms are worsened with standing Denies any fevers or chills Allergies: Coded Allergies: No Known Allergies (Unverified , 04/26/18) Patient History Past Medical History: see triage record Pertinent Family History: none Reviewed Nursing Documentation: PMH: Agreed; PSxH: Agreed Nursing Documentation-PM Past Medical History: No Stated History Hx Cardiac Problems: No Hx Cancer: No Hx Gastrointestinal Problems: Yes - pancreatitis Hx Neurological Problems: Yes Hx Seizures: Yes Review of Systems All Other Systems: negative except mentioned in HPI Physical Exam Vital Signs Date Time Temp Pulse Resp B/P (MAP) Pulse Ox O2 Delivery O2 Flow Rate FiO2 05/01/19 12:27 98.8 136 18 123/67 (85) 98 Room Air Sp02 EP Interpretation: reviewed, normal General Appearance: other - Jaundice in no acute distress Head: normocephalic, atraumatic Eyes: bilateral eye PERRL, bilateral eye EOMI, bilateral eye other - Scleral icterus ENT: other - Pallor Neck: supple, thyroid normal Respiratory: lungs clear, no respiratory distress, no retraction, no accessory muscle use Cardiovascular #1: regular rate, rhythm Gastrointestinal: non tender, soft Genitourinary: no CVA tenderness Musculoskeletal: normal inspection Neurologic: alert, oriented x3, responsive Psychiatric: normal inspection Skin: jaundice Lymphatic: no adenopathy Procedures Critical Care Time Critical Care Time 50 minutes for multiple re-evaluations initial critical presentation concerning findings with significantly low hemoglobin concerning for, cardiopulmonary arrest not including any procedural time Medical Decision Making Diagnostic Impression: Primary Impression: GI (gastrointestinal bleed) Additional Impressions: Esophageal varices Anemia ER Course Patient presents appearing significantly jaundice Feels weak Multiple differentials are in consideration given his past medical history including but not limited to anemia, GI hemorrhage, liver failure Patient's initial hemoglobin is significantly low and this is confirmed Patient is initiated on emergent blood transfusion Octreotide drip and Protonix bolus patient requires further inpatient care Heart rate And blood pressure remain improved Labs Test 05/01/19 12:42 05/01/19 13:13 05/01/19 13:50 05/01/19 21:30 White Blood Count 9.1 K/UL (4.8-10.8) 7.0 K/UL (4.8-10.8) 7.4 K/UL (4.8-10.8) Red Blood Count 1.81 M/UL (4.70-6.10) 1.59 M/UL (4.70-6.10) 2.26 M/UL (4.70-6.10) Hemoglobin 3.9 G/DL (14.2-18.0) 3.3 G/DL (14.2-18.0) 5.6 G/DL (14.2-18.0) Hematocrit 13.2 % (42.0-52.0) 11.7 % (42.0-52.0) 17.6 % (42.0-52.0) Mean Corpuscular Volume 73 FL (80-99) 73 FL (80-99) 78 FL (80-99) Mean Corpuscular Hemoglobin 21.7 PG (27.0-31.0) 20.9 PG (27.0-31.0) 24.7 PG (27.0-31.0) Mean Corpuscular Hemoglobin Concent 29.5 G/DL (32.0-36.0) 28.5 G/DL (32.0-36.0) 31.8 G/DL (32.0-36.0) Red Cell Distribution Width 17.2 % (11.6-14.8) 17.9 % (11.6-14.8) 17.0 % (11.6-14.8) Platelet Count 341 K/UL (150-450) 238 K/UL (150-450) 200 K/UL (150-450) Mean Platelet Volume 4.8 FL (6.5-10.1) 5.1 FL (6.5-10.1) 4.8 FL (6.5-10.1) Neutrophils (%) (Auto) % (45.0-75.0) % (45.0-75.0) % (45.0-75.0) Lymphocytes (%) (Auto) % (20.0-45.0) % (20.0-45.0) % (20.0-45.0) Monocytes (%) (Auto) % (1.0-10.0) % (1.0-10.0) % (1.0-10.0) Eosinophils (%) (Auto) % (0.0-3.0) % (0.0-3.0) % (0.0-3.0) Basophils (%) (Auto) % (0.0-2.0) % (0.0-2.0) % (0.0-2.0) Differential Total Cells Counted 100 100 Neutrophils % (Manual) 80 % (45-75) 68 % (45-75) Lymphocytes % (Manual) 14 % (20-45) 23 % (20-45) Monocytes % (Manual) 6 % (1-10) 9 % (1-10) Eosinophils % (Manual) 0 % (0-3) 0 % (0-3) Basophils % (Manual) 0 % (0-2) 0 % (0-2) Band Neutrophils 0 % (0-8) 0 % (0-8) Nucleated Red Blood Cells 1 /100 WBC Platelet Estimate Adequate Adequate Platelet Morphology Normal Normal Polychromasia 1+ 1+ Hypochromasia 3+ 3+ Anisocytosis 2+ 2+ Microcytosis 3+ 3+ Prothrombin Time 12.6 SEC (9.30-11.50) Prothromb Time International Ratio 1.2 (0.9-1.1) Activated Partial Thromboplast Time 23 SEC (23-33) Sodium Level 139 MMOL/L (136-145) Potassium Level 3.5 MMOL/L (3.5-5.1) Chloride Level 102 MMOL/L (98-107) Carbon Dioxide Level 21 MMOL/L (21-32) Anion Gap 16 mmol/L (5-15) Blood Urea Nitrogen 13 mg/dL (7-18) Creatinine 1.1 MG/DL (0.55-1.30) Estimat Glomerular Filtration Rate > 60 mL/min (>60) Glucose Level 167 MG/DL (74-106) Calcium Level 8.9 MG/DL (8.5-10.1) Iron Level 8 ug/dL (50-175) Total Iron Binding Capacity 573 ug/dL (250-450) Percent Iron Saturation 1 % (15-50) Unsaturated Iron Binding 565 ug/dL (112-346) Total Bilirubin 2.0 MG/DL (0.2-1.0) Direct Bilirubin 0.8 MG/DL (0.0-0.3) Aspartate Amino Transf (AST/SGOT) 37 U/L (15-37) Alanine Aminotransferase (ALT/SGPT) 30 U/L (12-78) Alkaline Phosphatase 172 U/L (46-116) Total Creatine Kinase 88 U/L (26-308) Creatine Kinase MB < 0.5 NG/ML (0.0-3.6) Creatine Kinase MB Relative Index Troponin I 0.003 ng/mL (0.000-0.056) Total Protein 7.3 G/DL (6.4-8.2) Albumin 3.8 G/DL (3.4-5.0) Globulin 3.5 g/dL Albumin/Globulin Ratio 1.1 (1.0-2.7) Lipase 154 U/L (73-393) Folate 8.9 NG/ML (8.6-58.9) Serum Alcohol < 3 mg/dL Urine Color Brown Urine Appearance Clear Urine pH 9 (4.5-8.0) Urine Specific [place] 1.015 (1.005-1.035) Urine Protein 2+ (NEGATIVE) Urine Glucose (UA) Negative (NEGATIVE) Urine Ketones 1+ (NEGATIVE) Urine Blood Negative (NEGATIVE) Urine Nitrite Negative (NEGATIVE) Urine Bilirubin Negative (NEGATIVE) Urine Urobilinogen 4 MG/DL (0.0-1.0) Urine Leukocyte Esterase 1+ (NEGATIVE) Urine RBC 0 /HPF (0 - 0) Urine WBC 0-2 /HPF (0 - 0) Urine Squamous Epithelial Cells None /LPF (NONE/OCC) Urine Bacteria Occasional /HPF (NONE) Urine Mucus Moderate /LPF (NONE/OCC) Urine Opiates Screen Negative (NEGATIVE) Urine Barbiturates Screen Negative (NEGATIVE) Phencyclidine (PCP) Screen Negative (NEGATIVE) Urine Amphetamines Screen Negative (NEGATIVE) Urine Benzodiazepines Screen Negative (NEGATIVE) Urine Cocaine Screen Negative (NEGATIVE) Urine Marijuana (THC) Screen Negative (NEGATIVE) Test 05/02/19 09:41 White Blood Count 6.5 K/UL (4.8-10.8) Red Blood Count 3.07 M/UL (4.70-6.10) Hemoglobin 7.9 G/DL (14.2-18.0) Hematocrit 24.6 % (42.0-52.0) Mean Corpuscular Volume 80 FL (80-99) Mean Corpuscular Hemoglobin 25.6 PG (27.0-31.0) Mean Corpuscular Hemoglobin Concent 32.0 G/DL (32.0-36.0) Red Cell Distribution Width 17.0 % (11.6-14.8) Platelet Count 179 K/UL (150-450) Mean Platelet Volume 5.2 FL (6.5-10.1) Neutrophils (%) (Auto) % (45.0-75.0) Lymphocytes (%) (Auto) % (20.0-45.0) Monocytes (%) (Auto) % (1.0-10.0) Eosinophils (%) (Auto) % (0.0-3.0) Basophils (%) (Auto) % (0.0-2.0) Differential Total Cells Counted 100 Neutrophils % (Manual) 77 % (45-75) Lymphocytes % (Manual) 15 % (20-45) Monocytes % (Manual) 8 % (1-10) Eosinophils % (Manual) 0 % (0-3) Basophils % (Manual) 0 % (0-2) Band Neutrophils 0 % (0-8) Platelet Estimate Adequate Platelet Morphology Normal Anisocytosis 1+ Sodium Level 139 MMOL/L (136-145) Potassium Level 4.0 MMOL/L (3.5-5.1) Chloride Level 107 MMOL/L (98-107) Carbon Dioxide Level 23 MMOL/L (21-32) Anion Gap 9 mmol/L (5-15) Blood Urea Nitrogen 9 mg/dL (7-18) Creatinine 0.9 MG/DL (0.55-1.30) Estimat Glomerular Filtration Rate > 60 mL/min (>60) Glucose Level 172 MG/DL (74-106) Calcium Level 8.1 MG/DL (8.5-10.1) Phosphorus Level 3.8 MG/DL (2.5-4.9) Magnesium Level 1.9 MG/DL (1.8-2.4) Total Bilirubin 3.8 MG/DL (0.2-1.0) Direct Bilirubin 1.5 MG/DL (0.0-0.3) Aspartate Amino Transf (AST/SGOT) 42 U/L (15-37) Alanine Aminotransferase (ALT/SGPT) 26 U/L (12-78) Alkaline Phosphatase 139 U/L (46-116) Total Protein 6.1 G/DL (6.4-8.2) Albumin 2.9 G/DL (3.4-5.0) Globulin 3.2 g/dL Albumin/Globulin Ratio 0.9 (1.0-2.7) Rhythm Strip Diag. Results EP Interpretation: yes Rate: 90 Rhythm: NSR, no PVC's, no ectopy CT/MRI/US Diagnostic Results CT/MRI/US Diagnostic Results : Impression CT abdomen pelvisIMPRESSION: Thickening of the gallbladder wall with a small gallstone noted. Cholecystitis not excluded. Correlate clinically. Hepatosplenomegaly. Presence of varices suggestive of portal hypertension. Correlate clinically. Thickening of the wall the urinary bladder. Correlate for cystitis. Similar findings previously. [facility] has communicated the preliminary results to the Emergency Department. Their findings are largely concordant with this report. Last Vital Signs Date Time Temp Pulse Resp B/P (MAP) Pulse Ox O2 Delivery O2 Flow Rate FiO2 05/01/19 12:46 128 16 Room Air 05/01/19 12:46 98.8 135/68 98 Status: improved Disposition: ADMITTED INPATIENT Condition: Critical Bessy Henry DO May 01, 2019 13:05
[2019-05-01 13:09] LABS: ANION GAP 16 mmol/L (5-15); BLOOD UREA NITROGEN 13 mg/dL (7-18); CALCIUM 8.9 MG/DL (8.5-10.1); CARBON DIOXIDE 21 MMOL/L (21-32); CHLORIDE 102 MMOL/L (98-107); CREATININE 1.1 MG/DL (0.55-1.30); POTASSIUM 3.5 MMOL/L (3.5-5.1); SODIUM 139 MMOL/L (136-145)
[2019-05-01 13:15] LABS: INR 1.2 (0.9-1.1)
--- NOTE | 2019-05-01 13:25 | NUR ---
ED Nurse Note: xray on bedside
[2019-05-01 13:30] LABS: HEMATOCRIT 11.7 % (42.0-52.0); MEAN CORPUSCULAR VOLUME 73 FL (80-99); PLATELET COUNT 238 K/UL (150-450); RED BLOOD COUNT 1.59 M/UL (4.70-6.10); RED CELL DISTRIBUTION WIDTH 17.9 % (11.6-14.8)
[2019-05-01 13:32] LABS: ALBUMIN 3.8 G/DL (3.4-5.0); ALBUMIN/GLOBULIN RATIO 1.1 (1.0-2.7); ALKALINE PHOSPHATASE 172 U/L (46-116); ASPARTATE AMINO TRANSFERASE 37 U/L (15-37); CKMB < 0.5 NG/ML (0.0-3.6); CREATINE KINASE 88 U/L (26-308)
[2019-05-01 13:34] LABS: HEMOGLOBIN 3.3 G/DL (14.2-18.0)
[2019-05-01 13:34] LABS: BILIRUBIN,DIRECT 0.8 MG/DL (0.0-0.3)
--- NOTE | 2019-05-01 13:35 | NUR ---
ED Nurse Note: pt went to ct with tech
[2019-05-01 13:57] LABS: ALANINE AMINOTRANSFERASE 30 U/L (12-78)
[2019-05-01 14:15] LABS: APPEARANCE,URINE CLEAR; BILIRUBIN, URINE NEGATIVE (NEGATIVE); COLOR,URINE BROWN; GLUCOSE, URINE (UA) NEGATIVE (NEGATIVE); KETONES,URINE 1+ (NEGATIVE); LEUKOCYTE ESTERASE ,URINE 1+ (NEGATIVE); NITRITE,URINE NEGATIVE (NEGATIVE); PH,URINE 9 (4.5-8.0); PROTEIN,URINE 2+ (NEGATIVE); UROBILINOGEN,URINE 4 MG/DL (0.0-1.0)
[2019-05-01] MEDS ORDERED: Octreotide Acetate 500 MCG in Sodium Chloride 499 ML IV SCH (14:15)
[2019-05-01] MEDS ORDERED: SandoSTATIN 50mcg Inj IVP ONE (14:15)
[2019-05-01] MEDS ORDERED: Pantoprazole Inj IVP ONE (14:15)
--- NOTE | 2019-05-01 14:20 | NUR ---
ED Nurse Note: blood transfusion started, blood from lab properly match and checked by 2 rn. pt vs stable will continue to monitor.
--- NOTE | 2019-05-01 14:34 | NUR ---
NURSE NOTES: received call from ER Debra RN. pt receiving 1/2 units prbc. will bring pt up in few minitues. pt going to [facility]. awaiting arrival.
--- NOTE | 2019-05-01 14:35 | NUR ---
ED Nurse Note: pt has no alletgic reaction as of the moment. vs stable. pt denies any itchines, no sob. will continue to monitor.
--- NOTE | 2019-05-01 14:39 | NUR ---
ED Nurse Note: pt is admitted to the hospital. report given to Yesenia busby.
--- NOTE | 2019-05-01 14:50 | NUR ---
ED Nurse Note: admitting md dr kessler on bedside talking to the pt regarding the plan of care, pt vomitted, zofran iv given as ordered, pt able to tolerate. will continue to monitor
--- NOTE | 2019-05-01 14:54 | NUR ---
CASE MANAGEMENT: INITIAL REVIEW 28 YO M PRESENTED TO OUR ED FROM HOME CC: ABD PAIN. VOMITING BILE. PMHx: SZ. PANCREATITIS. SI:VOMITING. DIZZY. T 98.8 HR 136 RR 18 B/P 123/67 SATS 98% ON RA HGB 3.9 HCT 13.2 GLU 167 TBILI 2 DBILI 0.8 ALP 172 IS: ZOFRAN IV X1 PEPCID IV X1 1/2 NS BOLUS X1 OCTREOTIDE ACETATE IV X1 PROTONIX IV X1 PATIENT ADMITTED TO ICU 05/01/2019 @ 1443 DCP: PATIENT TO BE DISCHARGED TO HOME ONCE MEDICALLY CLEARED. PLAN OF CARE: NPO Addendum: 05/03/19 at 0756 by Jud Vang CM INTERQUAL MET
--- NOTE | 2019-05-01 14:55 | NUR ---
ED Nurse Note: with new ordered from ermd. pt medicated as ordered.
--- NOTE | 2019-05-01 15:00 | NUR ---
ED Nurse Note: pt was transfered to icu [facility] with mague vs, all belongings endorsed to Yesenia busby.
--- NOTE | 2019-05-01 15:10 | History & Physical ---
History and Physical History & Physicial The patient was seen and examined at bedside kin ED and all new and available data was reviewed in the patients chart. Last 24 Hour Vital Signs Date Time Temp Pulse Resp B/P (MAP) Pulse Ox O2 Delivery O2 Flow Rate FiO2 05/01/19 14:32 99.0 102 20 112/60 100 Room Air 05/01/19 12:46 128 16 Room Air 05/01/19 12:46 98.8 128 16 135/68 98 Room Air 05/01/19 12:27 98.8 136 18 123/67 (85) 98 Room Air F/U Labs F/U cultures F/U with Dr. Victoria Recommendation (Patient was seen earlier today. Signature timestamp does not reflect patient encounter time) Fracisco Leon MD, MD May 01, 2019 15:10
--- NOTE | 2019-05-01 15:30 | NUR ---
NURSE NOTES: received in [facility], transferred over to bed, with pt assist. A/OX4. febrile 100.1 hr 104 bp 103/60 AX. pt on wildlife removal specialist gag present. r.a O2 sat 98%. No respiratory distress noted. abdomen soft, distended. bowel sounds hypoactive. NPO per MD order. bilateral pedal pulses and radial weak. RAC 18g, LAC 20g patent and asymptomatic. sandostatin running @ 05ml/hr, 1/2 unit prbc's 150ml. standard isolation in place. Bed locked and in lowest position. Side rails up x3, zone 1 bed alarm on. Will continue to implement plan of care.
--- NOTE | 2019-05-01 16:15 | NUR ---
NURSE NOTES: CALLED AND LEFT MESSAGE W/ ALEXANDRA FOR NEW ADMIT ORDERS, AX TEMP 100.1 REQUEST TYLENOL, PT C/O 6/10 RUQ NON RADIATING, REQUEST PAIN MEDICATION. BEDREST, REQUEST DUPLEX AND SCD, FLUIDS CODE STATUS. AWAITING CALL BACK.
--- NOTE | 2019-05-01 16:38 | NUR ---
NURSE NOTES: 1/2 UNIT PRBC'S COMPLETE. VS: TEMP 99.2 AX, BP 102/51, HR 85, 100 ML NS FLUSH ADMINISTERED. NO DISTRESS NOTED.
--- NOTE | 2019-05-01 17:05 | NUR ---
NURSE NOTES: 2/2 UNITS PRBCS BEING ADMINISTERED, AX TEMP 99.4, HR 81, BP 101/61. VERIFIED WITH SECOND RN. EDUCATED PT ON S.E TO REPORT IF EXPERIENCED. WILL MONITOR PT CLOSELY.
--- NOTE | 2019-05-01 17:50 | NUR ---
NURSE NOTES: RECEIVED CALL BACK FROM MD MORRIS, RECEIVED ORDER TO INPUT SZ PRECAUTIONS, FULL CODE, ICU ADMIT, US OF ABD, OCCULT STOOL, SCD'S, CLEAR LIQUID DIET, ATIVAN 1 MG IVP Q4HR FOR WITHDRAWALS/RESTLESSNESS, TYLENOL 650 PO Q6H PRN TEMP>100, NORCO 5/325 PO Q6H MODERATE PAIN, MORPHINE 2MG IVP Q6HR SEVERE PAIN, PROTONIX 40MG PO DAILY ZOFRAN 4MG IVP Q4HR N/V, ADD FOLIC ACID AND FE PANEL TO ER LABS, LABS IN AM : CBC, CMP, MG, P, HEP PANEL
--- NOTE | 2019-05-01 18:00 | NUR ---
NURSE NOTES: CALLED DIETARY FOR TRAY. PT IN BED. NO S/S OF TRANSFUSION REACTION. TOLERATING NARCAN WELL.
[2019-05-01] MEDS ORDERED: LORazepam Inj 2mg/ml 1ml IV PRN (18:15)
[2019-05-01] MEDS ORDERED: HYDROcodone/Acetamin 5/325 tab ORAL PRN ×2 (18:15→18:30)
[2019-05-01] MEDS ORDERED: Morphine Sulfate 2mg/ml Inj(IV/IM USE ONLY) IVP PRN (18:15)
[2019-05-01 18:44] LABS: % IRON SATURATION 1 % (15-50); IRON 8 ug/dL (50-175); TOTAL IRON BINDING CAPACITY 573 ug/dL (250-450)
--- NOTE | 2019-05-01 19:30 | NUR ---
NURSE NOTES: Recvd.quiet in bed AAO.Resp.unlabored.P.Ox-100% on RA.See V/S.Scope SR.Denies CP.2nd unit PRBC Tx.in progress.Obsv.for S/S of Tx.reaction.Sandostatin drip infusing at 50mcg/hr.closely monitored for any S/S of active bldng.
--- NOTE | 2019-05-01 20:18 | NUR ---
HAND-OFF: Report given to PRAVEEN PALACIOS. PT IN NO ACUTE DISTRESS. ENDORSED SCD APPLICATION AND SIDE RAILS PAD
[2019-05-01 21:44] LABS: HEMATOCRIT 17.6 % (42.0-52.0); MEAN CORPUSCULAR VOLUME 78 FL (80-99); PLATELET COUNT 200 K/UL (150-450); RED BLOOD COUNT 2.26 M/UL (4.70-6.10); WHITE BLOOD COUNT 7.4 K/UL (4.8-10.8)
[2019-05-01 21:49] LABS: HEMOGLOBIN 5.6 G/DL (14.2-18.0)
--- NOTE | 2019-05-01 21:52 | NUR ---
NURSE NOTES: Called and spoke with MD Helms about HGB 5.6 post 2 units PRBC. MD ordered to give another 2 units PRBC.
--- NOTE | 2019-05-01 22:20 | NUR ---
NURSE NOTES: HS care provided.Due med recvd.Pos.self to comfort.Above Blood Tx.consumed transfusion satisfactory.CBC drawn results called to .See order for more Transfusion.Voided freely.
[2019-05-01] MEDS: Octreotide Acetate 500 MCG in Sodium Chloride 499 ML IV SCH (23:55)
[2019-05-02] VITALS (23 sets, daily range): BP systolic 93–113; BP diastolic 49–86
--- NOTE | 2019-05-02 00:10 | NUR ---
NURSE NOTES: Quiet watching TV.Stated he's OK.See V/S.Scope SR.Denies discomfort.No active Bleeding observed.Await for Blood availability poss,3rd unit Bld.Transfusion.
--- NOTE | 2019-05-02 01:34 | NUR ---
NURSE NOTES: 3rd unit PRBC Tx.started.observe for S/S of any untoward Reaction.See V/S.Scope SB.Asymptomatic.
--- NOTE | 2019-05-02 02:30 | NUR ---
NURSE NOTES: Sound asleep.Resp.unlabored.Pos.self to comfort.No distress.Cont.Plan of care.
--- NOTE | 2019-05-02 04:20 | NUR ---
NURSE NOTES: Doze off/on.Denies Discomfort.See V/S.Scope SR-SB asymptomatic.4th unit PRBC Tx.in progress.Observed for s/s of any Tx.reaction.
[2019-05-02] MEDS: Octreotide Acetate 500 MCG in Sodium Chloride 499 ML IV SCH ×2 (06:49→18:20)
--- NOTE | 2019-05-02 07:33 | NUR ---
HAND-OFF: Report given to PHILIP BINGHAM.
--- NOTE | 2019-05-02 07:35 | NUR ---
NURSE NOTES: Report received from Farhan Day RN.Pt asleep but easily awakens with verbal command ,in no distress denies any c/o abd pain, or discomfort,SR on the monitor,skin warm and dry, IV site to LAC intact with IV Sandostatin at 50 mcg/hr ,SR up x2 call borja within reach at bedside,hob elevated,bed lock in lowest position, will continue with plans of care.
--- NOTE | 2019-05-02 07:43 | General Progress Note ---
Assessment/Plan Problem List: (1) Esophageal varices ICD Codes: I85.00 - Esophageal varices without bleeding SNOMED: 72220724 (2) Anemia ICD Codes: D64.9 - Anemia, unspecified SNOMED: 336724145 (3) Alcoholic cirrhosis ICD Codes: K70.30 - Alcoholic cirrhosis of liver without ascites SNOMED: 921651636 (4) GI (gastrointestinal bleed) ICD Codes: K92.2 - Gastrointestinal hemorrhage, unspecified SNOMED: 98241941 Assessment/Plan: ppi octreotide transfuse to keep HGB above 7 plan EGD in am Subjective ROS Limited/Unobtainable: Yes Allergies: Coded Allergies: No Known Allergies (Unverified , 04/26/18) Objective Last 24 Hour Vital Signs Date Time Temp Pulse Resp B/P (MAP) Pulse Ox O2 Delivery O2 Flow Rate FiO2 05/02/19 07:00 58 14 98/56 (70) 100 05/02/19 06:00 54 13 100/61 (74) 100 05/02/19 04:00 Room Air 05/02/19 04:00 98.5 54 13 95/60 (72) 100 05/02/19 04:00 56 05/02/19 03:00 63 13 102/51 (68) 100 05/02/19 02:00 60 14 98/52 (67) 100 05/02/19 01:00 58 14 99/49 (66) 100 05/02/19 00:00 61 05/02/19 00:00 Room Air 05/02/19 00:00 61 05/02/19 00:00 Room Air 05/02/19 00:00 97.6 61 14 104/52 (69) 100 05/01/19 23:00 65 16 103/53 (70) 100 05/01/19 22:00 73 16 102/53 (69) 100 05/01/19 21:00 67 16 106/61 (76) 100 05/01/19 20:00 74 05/01/19 20:00 74 05/01/19 20:00 Room Air 05/01/19 20:00 97.8 74 17 102/57 (72) 100 05/01/19 19:00 80 21 105/61 (76) 100 05/01/19 18:17 104 05/01/19 16:00 104 05/01/19 16:00 Room Air 05/01/19 15:50 Room Air 05/01/19 15:00 99.0 102 20 112/60 100 Room Air 05/01/19 14:32 99.0 102 20 112/60 100 Room Air 05/01/19 12:46 128 16 Room Air 05/01/19 12:46 98.8 128 16 135/68 98 Room Air 05/01/19 12:27 98.8 136 18 123/67 (85) 98 Room Air Intake and Output 05/01/19 05/02/19 19:00 07:00 Intake Total 450 ml 1400 ml Output Total 500 ml Balance 450 ml 900 ml Intake Oral 200 ml IV Total 450 ml 600 ml Blood Product 600 ml Output Urine Total 500 ml # Voids 1 2 Laboratory Tests 05/01/19 12:42: White Blood Count 9.1, Red Blood Count 1.81L, Hemoglobin 3.9*L, Hematocrit 13.2L , Mean Corpuscular Volume 73L, Mean Corpuscular Hemoglobin 21.7L, Mean Corpuscular Hemoglobin Concent 29.5L, Red Cell Distribution Width 17.2H, Platelet Count 341, Mean Platelet Volume 4.8L, Neutrophils (%) (Auto) , Lymphocytes (%) (Auto) , Monocytes (%) (Auto) , Eosinophils (%) (Auto) , Basophils (%) (Auto) , Differential Total Cells Counted 100, Neutrophils % ( Manual) 80H, Lymphocytes % (Manual) 14L, Monocytes % (Manual) 6, Eosinophils % ( Manual) 0, Basophils % (Manual) 0, Band Neutrophils 0, Nucleated Red Blood Cells 1, Platelet Estimate Adequate, Platelet Morphology Normal, Polychromasia 1 +, Hypochromasia 3+, Anisocytosis 2+, Microcytosis 3+, Prothrombin Time 12.6H, Prothromb Time International Ratio 1.2H, Activated Partial Thromboplast Time 23 , Sodium Level 139, Potassium Level 3.5, Chloride Level 102, Carbon Dioxide Level 21, Anion Gap 16H, Blood Urea Nitrogen 13, Creatinine 1.1, Estimat Glomerular Filtration Rate > 60, Glucose Level 167H, Calcium Level 8.9, Iron Level 8L, Total Iron Binding Capacity 573H, Percent Iron Saturation 1L, Unsaturated Iron Binding 565H, Total Bilirubin 2.0H, Direct Bilirubin 0.8H, Aspartate Amino Transf (AST/SGOT) 37, Alanine Aminotransferase (ALT/SGPT) 30, Alkaline Phosphatase 172H, Total Creatine Kinase 88, Creatine Kinase MB < 0.5, Creatine Kinase MB Relative Index , Troponin I 0.003, Total Protein 7.3, Albumin 3.8, Globulin 3.5, Albumin/Globulin Ratio 1.1, Lipase 154, Folate 8.9, Serum Alcohol < 3 05/01/19 13:13: White Blood Count 7.0, Red Blood Count 1.59L, Hemoglobin 3.3*L, Hematocrit 11.7L , Mean Corpuscular Volume 73L, Mean Corpuscular Hemoglobin 20.9L, Mean Corpuscular Hemoglobin Concent 28.5L, Red Cell Distribution Width 17.9H, Platelet Count 238, Mean Platelet Volume 5.1L, Neutrophils (%) (Auto) , Lymphocytes (%) (Auto) , Monocytes (%) (Auto) , Eosinophils (%) (Auto) , Basophils (%) (Auto) 05/01/19 13:50: Urine Color Brown, Urine Appearance Clear, Urine pH 9, Urine Specific [place] 1.015, Urine Protein 2+H, Urine Glucose (UA) Negative, Urine Ketones 1+H, Urine Blood Negative, Urine Nitrite Negative, Urine Bilirubin Negative, Urine Urobilinogen 4H, Urine Leukocyte Esterase 1+H, Urine RBC 0, Urine WBC 0-2, Urine Squamous Epithelial Cells None, Urine Bacteria Occasional, Urine Mucus ModerateH, Urine Opiates Screen Negative, Urine Barbiturates Screen Negative, Phencyclidine (PCP) Screen Negative, Urine Amphetamines Screen Negative, Urine Benzodiazepines Screen Negative, Urine Cocaine Screen Negative, Urine Marijuana (THC) Screen Negative 05/01/19 21:30: White Blood Count 7.4, Red Blood Count 2.26L, Hemoglobin 5.6#*L, Hematocrit 17.6 #L, Mean Corpuscular Volume 78L, Mean Corpuscular Hemoglobin 24.7L, Mean Corpuscular Hemoglobin Concent 31.8L, Red Cell Distribution Width 17.0H, Platelet Count 200, Mean Platelet Volume 4.8L, Neutrophils (%) (Auto) , Lymphocytes (%) (Auto) , Monocytes (%) (Auto) , Eosinophils (%) (Auto) , Basophils (%) (Auto) , Differential Total Cells Counted 100, Neutrophils % ( Manual) 68, Lymphocytes % (Manual) 23, Monocytes % (Manual) 9, Eosinophils % ( Manual) 0, Basophils % (Manual) 0, Band Neutrophils 0, Platelet Estimate Adequate, Platelet Morphology Normal, Polychromasia 1+, Hypochromasia 3+, Anisocytosis 2+, Microcytosis 3+ 05/02/19 04:00: Hepatitis A IgM Antibody [Pending], Hepatitis B Surface Antigen [Pending], Hepatitis B Core IgM Antibody [Pending], Hepatitis C Antibody [Pending] Height (Feet): 5 Height (Inches): 6.00 Weight (Pounds): 131 General Appearance: alert EENT: normal ENT inspection Neck: supple Cardiovascular: normal rate Respiratory/Chest: lungs clear Abdomen: normal bowel sounds, non tender, soft Extremities: non-tender Luis Armando Victoria MD May 02, 2019 07:43
--- NOTE | 2019-05-02 07:55 | NUR ---
NURSE NOTES: Dr Velázquez at bedside,discussed with pt re plans for EGD with biopsy in am,will keep pt NPO and get consent.
--- NOTE | 2019-05-02 09:00 | NUR ---
NURSE NOTES: Pt NPO at this time,PO medic Protonix hold for Ultrasound of Abdomen.
[2019-05-02 09:54] LABS: HEMATOCRIT 24.6 % (42.0-52.0); HEMOGLOBIN 7.9 G/DL (14.2-18.0); MEAN CORPUSCULAR VOLUME 80 FL (80-99); PLATELET COUNT 179 K/UL (150-450); RED BLOOD COUNT 3.07 M/UL (4.70-6.10); WHITE BLOOD COUNT 6.5 K/UL (4.8-10.8)
[2019-05-02 10:15] LABS: ALANINE AMINOTRANSFERASE 26 U/L (12-78); ALBUMIN 2.9 G/DL (3.4-5.0); ALBUMIN/GLOBULIN RATIO 0.9 (1.0-2.7); ALKALINE PHOSPHATASE 139 U/L (46-116); ANION GAP 9 mmol/L (5-15); ASPARTATE AMINO TRANSFERASE 42 U/L (15-37); BILIRUBIN,TOTAL 3.8 MG/DL (0.2-1.0); BLOOD UREA NITROGEN 9 mg/dL (7-18); CALCIUM 8.1 MG/DL (8.5-10.1); CARBON DIOXIDE 23 MMOL/L (21-32); CHLORIDE 107 MMOL/L (98-107); CREATININE 0.9 MG/DL (0.55-1.30); PHOSPHORUS 3.8 MG/DL (2.5-4.9); SODIUM 139 MMOL/L (136-145)
[2019-05-02 10:25] LABS: BILIRUBIN,DIRECT 1.5 MG/DL (0.0-0.3)
--- NOTE | 2019-05-02 14:29 | Diagnostic Imaging Report ---
Indication: Abdominal pain Technique: Continuous helical transaxial imaging of the abdomen and pelvis was obtained from the lung bases to the pubic symphysis during intravenous contrast administration. Coronal 2-D reformats were also obtained. Study obtained in a Siemens sensation [address] Automatic Exposure Control was utilized. Total Dose length Product (DLP): 671.[address] Dose Index Volume (CTDIvol): 12.57 mGy Comparison: 03/17/2019 Findings: The lung bases are clear. The liver has a symmetric configuration with enlargement of the left lobe extending to be on the lateral part of the spleen in the left upper quadrant. Liver is again noted to be quite enlarged. There is no surface nodularity identified. However there is evidence of varices within the abdomen seen is multiple serpiginous structures enhancing during venous phase. The portal vein is widely patent. The spleen is mildly enlarged. Findings suggest portal hypertension. There is thickening of the wall the gallbladder. Tiny gallstone noted. Correlate for cholecystitis. Kidneys are unremarkable. Bowel gas pattern is nonobstructive. The colon is nondistended. The appendix is not definitely seen but there are no secondary signs of appendicitis. There may be mild thickening of the wall the urinary bladder. IMPRESSION: Thickening of the gallbladder wall with a small gallstone noted. Cholecystitis not excluded. Correlate clinically. Hepatosplenomegaly. Presence of varices suggestive of portal hypertension. Correlate clinically. Thickening of the wall the urinary bladder. Correlate for cystitis. Similar findings previously. [facility] has communicated the preliminary results to the Emergency Department. Their findings are largely concordant with this report. The CT scanner at [facility] is accredited by the [employer] and the scans are performed using dose optimization techniques as appropriate to a performed exam including Automatic Exposure control.
--- NOTE | 2019-05-02 15:05 | NUR ---
NURSE NOTES: Called DR Helms re H/H 7.9/24.6,no orders given said will be coming over later.
--- NOTE | 2019-05-02 16:14 | NUR ---
NURSE NOTES: Ultra sound Tech Sonia Yusuf at bedside,Ultra sound of abdomen in process.
[2019-05-02] MEDS ORDERED: Tubing IV Blood Pump IV ONE (17:15)
[2019-05-02] MEDS ORDERED: NS 275ml ONE (17:15)
--- NOTE | 2019-05-02 18:00 | NUR ---
NURSE NOTES: Ultrasound Abdomen done ,dinner served,will give PO Medication.
--- NOTE | 2019-05-02 19:10 | NUR ---
HAND-OFF: Report given to BAM Echeverria RN.
--- NOTE | 2019-05-02 19:30 | NUR ---
NURSE NOTES: Received Pt is resting on the bed and awake and alert. No sign of acute distress noted. IV site intact and no sign of infiltration noted. Denied pain at this time. No sign of active bleeding at this time. Educated Pt regarding MN NPO for EGD tomorrow. Verbally understanding. Placed fall precaution. Will continue to care plan.
--- NOTE | 2019-05-02 20:18 | NUR ---
NURSE NOTES: Dr. Helms visited and assessed Pt and given new order with Johny. Carried out. Will continue to monitor any change of condition.
--- NOTE | 2019-05-02 20:33 | Internal Med Progress Note ---
Subjective Physician Name Fracisco Helms Attending Physician Fracisco Helms MD Current Medications Medications (Trade) Dose Ordered Sig/Solis Route PRN Reason Start Time Stop Time Status Last Admin Dose Admin Acetaminophen (Tylenol) 650 mg Q6H PRN ORAL MILD PAIN/TEMP>100 05/01/19 18:30 05/31/19 18:14 Acetaminophen/ Hydrocodone Bitart (Termo 5/325) 1 tab Q6H PRN ORAL For Pain 4-6 05/01/19 18:30 05/08/19 18:14 05/01/19 18:35 Iopamidol (Isovue-300 100ml) 100 ml NOW PRN INJ Radiology Procedure 05/01/19 12:45 05/03/19 12:44 Iron Sucrose 100 mg/Sodium Chloride 60 ml @ 240 mls/hr BEDTIME IVPB 05/02/19 21:00 05/06/19 21:14 UNV Lorazepam (Ativan 2mg/ml 1ml) 1 mg Q4H PRN IV Restlessness 05/01/19 18:15 05/08/19 18:14 Morphine Sulfate (Morphine Sulfate) 2 mg Q6H PRN IVP Severe Pain (Pain Scale 7-10) 05/01/19 18:15 05/08/19 18:14 Octreotide Acetate 500 mcg/ Sodium Chloride 500 ml @ 50 mls/hr Q10H IV 05/01/19 21:00 05/31/19 20:59 05/02/19 18:20 Pantoprazole (Protonix) 40 mg DAILY ORAL 05/02/19 09:00 06/01/19 08:59 05/02/19 18:48 Allergies: Coded Allergies: No Known Allergies (Unverified , 04/26/18) Subjective awake, alert, responsive, No CP or SOB, No Active GI bleeding. Objective Last Vital Signs Date Time Temp Pulse Resp B/P (MAP) Pulse Ox O2 Delivery O2 Flow Rate FiO2 05/02/19 20:00 Room Air 05/02/19 18:00 56 16 113/86 (95) 100 05/02/19 16:00 98.0 Laboratory Tests Test 05/01/19 21:30 05/02/19 09:41 White Blood Count 7.4 K/UL (4.8-10.8) 6.5 K/UL (4.8-10.8) Red Blood Count 2.26 M/UL (4.70-6.10) L 3.07 M/UL (4.70-6.10) L Hemoglobin 5.6 G/DL (14.2-18.0) 7.9 G/DL (14.2-18.0) #L Hematocrit 17.6 % (42.0-52.0) #L 24.6 % (42.0-52.0) #L Mean Corpuscular Volume 78 FL (80-99) L 80 FL (80-99) Mean Corpuscular Hemoglobin 24.7 PG (27.0-31.0) L 25.6 PG (27.0-31.0) L Mean Corpuscular Hemoglobin Concent 31.8 G/DL (32.0-36.0) L 32.0 G/DL (32.0-36.0) Red Cell Distribution Width 17.0 % (11.6-14.8) H 17.0 % (11.6-14.8) H Platelet Count 200 K/UL (150-450) 179 K/UL (150-450) Mean Platelet Volume 4.8 FL (6.5-10.1) L 5.2 FL (6.5-10.1) L Neutrophils (%) (Auto) % (45.0-75.0) % (45.0-75.0) Lymphocytes (%) (Auto) % (20.0-45.0) % (20.0-45.0) Monocytes (%) (Auto) % (1.0-10.0) % (1.0-10.0) Eosinophils (%) (Auto) % (0.0-3.0) % (0.0-3.0) Basophils (%) (Auto) % (0.0-2.0) % (0.0-2.0) Differential Total Cells Counted 100 100 Neutrophils % (Manual) 68 % (45-75) 77 % (45-75) H Lymphocytes % (Manual) 23 % (20-45) 15 % (20-45) L Monocytes % (Manual) 9 % (1-10) 8 % (1-10) Eosinophils % (Manual) 0 % (0-3) 0 % (0-3) Basophils % (Manual) 0 % (0-2) 0 % (0-2) Band Neutrophils 0 % (0-8) 0 % (0-8) Platelet Estimate Adequate Adequate Platelet Morphology Normal Normal Polychromasia 1+ Hypochromasia 3+ Anisocytosis 2+ 1+ Microcytosis 3+ Sodium Level 139 MMOL/L (136-145) Potassium Level 4.0 MMOL/L (3.5-5.1) Chloride Level 107 MMOL/L (98-107) Carbon Dioxide Level 23 MMOL/L (21-32) Anion Gap 9 mmol/L (5-15) Blood Urea Nitrogen 9 mg/dL (7-18) Creatinine 0.9 MG/DL (0.55-1.30) Estimat Glomerular Filtration Rate > 60 mL/min (>60) Glucose Level 172 MG/DL (74-106) H Calcium Level 8.1 MG/DL (8.5-10.1) L Phosphorus Level 3.8 MG/DL (2.5-4.9) Magnesium Level 1.9 MG/DL (1.8-2.4) Total Bilirubin 3.8 MG/DL (0.2-1.0) H Direct Bilirubin 1.5 MG/DL (0.0-0.3) H Aspartate Amino Transf (AST/SGOT) 42 U/L (15-37) H Alanine Aminotransferase (ALT/SGPT) 26 U/L (12-78) Alkaline Phosphatase 139 U/L (46-116) H Total Protein 6.1 G/DL (6.4-8.2) L Albumin 2.9 G/DL (3.4-5.0) L Globulin 3.2 g/dL Albumin/Globulin Ratio 0.9 (1.0-2.7) L Hepatitis A IgM Antibody Pending Hepatitis B Surface Antigen Pending Hepatitis B Core IgM Antibody Pending Hepatitis C Antibody Pending Intake and Output 05/01/19 05/02/19 19:00 07:00 Intake Total 450 ml 1400 ml Output Total 500 ml Balance 450 ml 900 ml Intake Oral 200 ml IV Total 450 ml 600 ml Blood Product 600 ml Output Urine Total 500 ml # Voids 1 2 Objective General: No acute distress, awake and alert HEENT: NCAT, sclera anicteric, PERRL, EOMI. Neck: Supple, no significant jugular venous distention, Lungs: Good inspiratory effort, no accessory muscle use, clear to auscultation bilaterally, no Wheeze or Rales. Heart: Regular rate and rhythm, normal S1/S2, no murmurs/gallops Abdomen: soft, nontender, nondistended. Normoactive bowel sounds. / Rectal: Refused and deferred. Extremities: No Cyanosis , clubbing or edema. Neuro: A&O x 3, Able to move all extremities Skin: warm, no rashes or lesions Psych: Normal mood and affect Assessment/Plan Assessment/Plan (1) Esophageal varices ICD Codes: I85.00 - Esophageal varices without bleeding SNOMED: 41309241 (2) Severe Anemia, Iron deficiency anemia ICD Codes: D64.9 - Anemia, unspecified SNOMED: 717847376 (3) Alcoholic cirrhosis ICD Codes: K70.30 - Alcoholic cirrhosis of liver without ascites SNOMED: 107623153 (4) GI (gastrointestinal bleed) ICD Codes: K92.2 - Gastrointestinal hemorrhage, unspecified SNOMED: 55397586 Plan: monitor labs F/U with Dr. Victoria recommendation with EGD in AM Start Fracisco Gordon IV, MD May 02, 2019 20:33
[2019-05-02] MEDS: Iron Sucrose 100 MG in NS 55 ML IV SCH (21:09)
--- NOTE | 2019-05-02 21:30 | History and Physical Report ---
DATE OF ADMISSION: 05/01/2019 CHIEF COMPLAINT: Abdominal pain associated with nausea, vomiting. HISTORY OF PRESENT ILLNESS: This is a 28-year-old, very unfortunate gentleman with past medical history significant for alcoholism with history of esophageal varices, status post banding, anemia requiring blood transfusion in the past who was presented to the hospital complaining about abdominal pain associated with nausea, vomiting, feeling dizzy, and lightheaded. Shortly after initial evaluation in the emergency, the patient was noted to have hemoglobin of 3.9 and subsequently the patient was admitted to ICU with severe anemia, most likely secondary to the GI bleed with history of esophageal varices. PAST MEDICAL HISTORY/PAST SURGICAL HISTORY: As above. History of alcoholic liver disease with history of GI bleed secondary to the esophageal varices, status post of variceal banding with prior history of admission to [facility] from 03/15/2019 through 03/18/2019 due to the severe intractable nausea, vomiting, abdominal pain x2 days. The patient denied any coffee-ground emesis. MEDICATIONS AT HOME: Significant for Protonix and iron. ALLERGIES: No known drug allergies. SOCIAL HISTORY: The patient is single. He lives with his parents. He denies any tobacco use. Denies any alcohol use. He said he quit about two days ago. Just drinks beer. FAMILY HISTORY: Noncontributory. REVIEW OF SYSTEMS: Mostly as above. Denies any dysuria, frequency, hematuria. Complained about nausea and vomiting. Denies any hemoptysis or hematochezia. Denies any suicidal ideation. Denies any loss of consciousness. Denies any fall or head trauma. PHYSICAL EXAMINATION: VITAL SIGNS: On admission, temperature of 98.8, pulse of 136, respirations 18, blood pressure 123/67. GENERAL: The patient awake, responsive, no acute distress. HEAD AND NECK: Pupils are equal and reactive to light. Extraocular movements intact. Neck was supple. No JVD. LUNGS: Good air entry with no wheeze or rales. HEART: S1, S2. Regular rhythm. No murmur, gallops. ABDOMEN: Soft. Tenderness in epigastric area. No rebound tenderness. No fluid shift. EXTREMITIES: No cyanosis, clubbing, edema. NEUROLOGIC: Cranial nerves II through XII are grossly intact. Motor is 5/5 and symmetric. Gait is intact. RECTAL: Refused and deferred. GENITOURINARY: Refused and deferred. PSYCHIATRIC: Mood and affect is intact. LABORATORY DATA: On admission WBC of 9.1, hemoglobin 3.9, hematocrit 13, platelet is 341. Sodium 139, potassium 3.5, chloride 102, bicarbonate 21, BUN 13, creatinine 1.1, glucose is 167, calcium is 8.9. Total bilirubin of 2.0, direct bilirubin of 0.8, AST of 37, ALT of 30, alkaline phosphatase 172. Troponin 0.003. Lipase is 157. Urine drug screen is negative. Alcohol level less than 3. Urinalysis +2 protein, +1 ketone, +1 leukocyte esterase, moderate mucosa. PT of 12, INR 1.2, PTT of 23. ASSESSMENT: 1. Abdominal pain with intractable nausea, vomiting. 2. Severe anemia. 3. Alcoholic liver cirrhosis. 4. Prior history of GI bleed secondary to esophageal varices, status post of variceal banding. 5. Severe dehydration. 6. Alcohol abuse. 7. Hepatic cirrhosis. PLAN: 1. Admit the patient to ICU. 2. Type and cross, transfuse 2 units already. 3. We will monitor laboratory including hemoglobin closely. 4. Code status, Full Code. 5. DVT prophylaxis is SCD. 6. Start the patient on octreotide drip. 7. Discussed case with Dr. Victoria from Gastroenterology in preparation of possible endoscopy. Fracisco Helms M.D. DR: BARRINGTON JOB#: [id number] CC:
--- NOTE | 2019-05-02 22:00 | NUR ---
NURSE NOTES: Pt is sleeping on the bed and no sign of acute distress noted. On Tele monitor with SR. Denied pain at this time. No sign of active bleeding noted. Will continue to monitor any change of condition.
[2019-05-03] VITALS (25 sets, daily range): BP systolic 91–114; BP diastolic 50–71
--- NOTE | 2019-05-03 | NUR ---
NURSE NOTES: Pt is sleeping on the bed and no sign of acute distress noted. On running with Sandostatin @ 50cc/hr and no sign of acute bleeding. Placed fall precaution. Will continue to monitor any change of condition.
--- NOTE | 2019-05-03 02:00 | NUR ---
NURSE NOTES: Pt is sleeping on the bed and no sign of acute distress noted. Vital sign is stable. Provided comfort and safe environment. Will continue to care plan.
--- NOTE | 2019-05-03 04:00 | NUR ---
NURSE NOTES: Pt is sleeping on the bed and no sign of acute distress noted. Blood was drawn. Keep MN NPO for EGD. No sign of acute bleeding noted. Will continue to care plan.
[2019-05-03] MEDS: Octreotide Acetate 500 MCG in Sodium Chloride 499 ML IV SCH (04:19)
[2019-05-03 05:41] LABS: HEMATOCRIT 24.7 % (42.0-52.0); HEMOGLOBIN 7.9 G/DL (14.2-18.0); MEAN CORPUSCULAR VOLUME 80 FL (80-99); PLATELET COUNT 172 K/UL (150-450); RED CELL DISTRIBUTION WIDTH 17.8 % (11.6-14.8)
[2019-05-03 05:44] LABS: INR 1.3 (0.9-1.1)
--- NOTE | 2019-05-03 06:00 | NUR ---
NURSE NOTES: Morning care was done. Pt is on NPO for EGD. Placed fall and seizure precaution. Will continue to monitor any change of condition.
[2019-05-03 06:02] LABS: ANION GAP 9 mmol/L (5-15); BLOOD UREA NITROGEN 5 mg/dL (7-18); CARBON DIOXIDE 24 MMOL/L (21-32); CHLORIDE 104 MMOL/L (98-107); CREATININE 0.8 MG/DL (0.55-1.30); POTASSIUM 3.6 MMOL/L (3.5-5.1); SODIUM 137 MMOL/L (136-145)
[2019-05-03 06:31] LABS: PHOSPHORUS 4.6 MG/DL (2.5-4.9)
--- NOTE | 2019-05-03 07:10 | NUR ---
NURSE NOTES: RECEIVED BED SIDE REPORT FROM KAMARI CLOTH SHRINKING MACHINE OPERATOR HELPER OF NOC SHIFT .RECEIVED PT RESTING IN BED COMFORTABLY AWAKE AND ALERT ORIENTED X4,DENIES ABD PAIN OR N/V.PT IS NPO ON SCHEDULE FOR EGD THIS AM.PT ON SANDOSTATIN @ 50CC/HRS CONNECTED ON RT AC INFUSING WELL.FULL BODY ASSESSMENT DONE.MD RAIN CAME TO SEE THE PT AND MADE AWARE AND NOTIFIED REGARDING HGB 7.9.NO NEW ORDERS NOTED AT THIS TIME.NO ACUTE DISTRESS NOTED AT THIS TIME.
--- NOTE | 2019-05-03 07:29 | NUR ---
HAND-OFF: Report given to PHILIP Bhandari. Pt is resting on the bed and no sign of acute distress noted.
--- NOTE | 2019-05-03 07:55 | Anethesia Preoperative Eval ---
Anesthesia Pre-op PMH/ROS General Date of Evaluation: May 03, 2019 Time of Evaluation: 07:52 Anesthesiologist: lorene ASA Score: ASA 4 Mallampati Score Class I : Soft palate, uvula, fauces, pillars visible Class II: Soft palate, uvula, fauces visible Class III: Soft palate, base of uvula visible Class IV: Only hard plate visible Mallampati Classification: Class II Surgeon: jalcyn Diagnosis: gi bleed Surgical Procedure: egd w/ bx Anesthesia History: none Social History: alcohol use Family History: no anesthesia problems Allergies: Coded Allergies: No Known Allergies (Unverified , 04/26/18) Medications: see eMAR Patient NPO?: Yes Past Medical History Gastrointestinal/Genitourinary: Reports: other - gi bleed, esophageal varices, cirrhosis, pancreatitis, abnormal lft's Neurologic/Psychiatric: Reports: other - seizures, acute delirium, impending dt 's, Hematology/Immune: Reports: anemia Anesthesia Pre-op Phys. Exam Physician Exam Last Vital Signs Date Time Temp Pulse Resp B/P (MAP) Pulse Ox O2 Delivery O2 Flow Rate FiO2 05/03/19 07:00 58 16 102/59 (73) 100 05/03/19 04:00 98.0 05/03/19 04:00 Room Air Constitutional: NAD Neurologic: CN 2-12 intact Cardiovascular: RRR Respiratory: CTA Gastrointestinal: S/NT/ND Airway Exam Mallampati Score: Class II MO: full Neck: flexible TMD: 2fb ROM: full Anesthesia Pre-op A/P Labs Hematology Test 05/02/19 09:41 05/03/19 04:30 White Blood Count 6.5 K/UL (4.8-10.8) 7.0 K/UL (4.8-10.8) Red Blood Count 3.07 M/UL (4.70-6.10) L 3.10 M/UL (4.70-6.10) L Hemoglobin 7.9 G/DL (14.2-18.0) #L 7.9 G/DL (14.2-18.0) L Hematocrit 24.6 % (42.0-52.0) #L 24.7 % (42.0-52.0) L Mean Corpuscular Volume 80 FL (80-99) 80 FL (80-99) Mean Corpuscular Hemoglobin 25.6 PG (27.0-31.0) L 25.5 PG (27.0-31.0) L Mean Corpuscular Hemoglobin Concent 32.0 G/DL (32.0-36.0) 32.0 G/DL (32.0-36.0) Red Cell Distribution Width 17.0 % (11.6-14.8) H 17.8 % (11.6-14.8) H Platelet Count 179 K/UL (150-450) 172 K/UL (150-450) Mean Platelet Volume 5.2 FL (6.5-10.1) L 5.4 FL (6.5-10.1) L Neutrophils (%) (Auto) % (45.0-75.0) % (45.0-75.0) Lymphocytes (%) (Auto) % (20.0-45.0) % (20.0-45.0) Monocytes (%) (Auto) % (1.0-10.0) % (1.0-10.0) Eosinophils (%) (Auto) % (0.0-3.0) % (0.0-3.0) Basophils (%) (Auto) % (0.0-2.0) % (0.0-2.0) Differential Total Cells Counted 100 Neutrophils % (Manual) 77 % (45-75) H Lymphocytes % (Manual) 15 % (20-45) L Monocytes % (Manual) 8 % (1-10) Eosinophils % (Manual) 0 % (0-3) Basophils % (Manual) 0 % (0-2) Band Neutrophils 0 % (0-8) Platelet Estimate Adequate Platelet Morphology Normal Anisocytosis 1+ Coagulation Test 05/03/19 04:30 Prothrombin Time 13.5 SEC (9.30-11.50) H Prothromb Time International Ratio 1.3 (0.9-1.1) H Activated Partial Thromboplast Time 28 SEC (23-33) Chemistry Test 05/02/19 09:41 05/03/19 04:30 Sodium Level 139 MMOL/L (136-145) 137 MMOL/L (136-145) Potassium Level 4.0 MMOL/L (3.5-5.1) 3.6 MMOL/L (3.5-5.1) Chloride Level 107 MMOL/L (98-107) 104 MMOL/L (98-107) Carbon Dioxide Level 23 MMOL/L (21-32) 24 MMOL/L (21-32) Anion Gap 9 mmol/L (5-15) 9 mmol/L (5-15) Blood Urea Nitrogen 9 mg/dL (7-18) 5 mg/dL (7-18) L Creatinine 0.9 MG/DL (0.55-1.30) 0.8 MG/DL (0.55-1.30) Estimat Glomerular Filtration Rate > 60 mL/min (>60) > 60 mL/min (>60) Glucose Level 172 MG/DL (74-106) H 121 MG/DL (74-106) H Calcium Level 8.1 MG/DL (8.5-10.1) L 8.0 MG/DL (8.5-10.1) L Phosphorus Level 3.8 MG/DL (2.5-4.9) 4.6 MG/DL (2.5-4.9) Magnesium Level 1.9 MG/DL (1.8-2.4) 1.9 MG/DL (1.8-2.4) Total Bilirubin 3.8 MG/DL (0.2-1.0) H Direct Bilirubin 1.5 MG/DL (0.0-0.3) H Aspartate Amino Transf (AST/SGOT) 42 U/L (15-37) H Alanine Aminotransferase (ALT/SGPT) 26 U/L (12-78) Alkaline Phosphatase 139 U/L (46-116) H Total Protein 6.1 G/DL (6.4-8.2) L Albumin 2.9 G/DL (3.4-5.0) L Globulin 3.2 g/dL Albumin/Globulin Ratio 0.9 (1.0-2.7) L Risk Assessment & Plan Assessment: asa3 Plan: mac Status Change Before Surgery: No Pre-Antibiotics Drug: Jessie Hollins MD May 03, 2019 07:55
[2019-05-03] MEDS ORDERED: DiphenhydrAMINE 50mg/ml Inj IVP PRN (08:00)
[2019-05-03] MEDS ORDERED: fentaNYL 100 mcg/2 mL IV PRN (08:00)
[2019-05-03] MEDS ORDERED: Atropine Inj 1mg/10ml Syr IV PRN (08:00)
[2019-05-03] MEDS ORDERED: Midazolam 2mg/2ml Inj IVP PRN (08:00)
--- NOTE | 2019-05-03 10:14 | Pulmonolgy Critical Care Note ---
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 Discussed with: nurses, consultants, rn case mgrmanager electrical - Objective Last 24 Hour Vital Signs Date Time Temp Pulse Resp B/P (MAP) Pulse Ox O2 Delivery O2 Flow Rate FiO2 05/03/19 09:00 59 18 102/50 (67) 100 05/03/19 08:00 Room Air 05/03/19 08:00 97.6 64 18 103/56 (72) 100 05/03/19 07:00 58 16 102/59 (73) 100 05/03/19 06:30 78 16 110/64 (79) 100 05/03/19 06:00 62 16 95/53 (67) 100 05/03/19 05:00 58 16 101/58 (72) 100 05/03/19 04:00 64 05/03/19 04:00 98.0 60 18 103/63 (76) 100 05/03/19 04:00 Room Air 05/03/19 03:00 58 16 111/64 (80) 100 05/03/19 02:00 67 16 108/60 (76) 100 05/03/19 01:00 57 16 103/63 (76) 100 05/03/19 00:00 50 05/03/19 00:00 98.3 66 18 106/56 (73) 100 05/03/19 00:00 Room Air 05/02/19 23:00 63 16 110/56 (74) 100 05/02/19 22:00 71 16 107/60 (76) 100 05/02/19 21:00 58 12 102/65 (77) 100 05/02/19 20:00 98.3 64 18 110/66 (81) 100 05/02/19 20:00 Room Air 05/02/19 20:00 71 05/02/19 19:00 64 16 104/72 (83) 100 05/02/19 18:00 56 16 113/86 (95) 100 05/02/19 17:06 56 18 105/63 (77) 100 05/02/19 16:00 98.0 71 18 99/62 (74) 100 05/02/19 16:00 Room Air 05/02/19 16:00 64 05/02/19 15:06 60 17 104/60 (75) 100 05/02/19 14:00 57 15 100/58 (72) 100 05/02/19 13:00 65 17 108/65 (79) 100 05/02/19 12:00 Room Air 05/02/19 12:00 79 05/02/19 12:00 98.5 68 17 93/58 (70) 100 05/02/19 11:00 62 16 109/66 (80) 99 Status: awake Condition: critical HEENT: atraumatic Neck: full ROM Lungs: clear Heart: HR/BP stable Abdomen: soft, active bowel sounds Extremities: no C/C/E Micro: Microbiology Date/Time Source Procedure Growth Status 05/01/19 14:20 Nasal Nares MRSA Culture - Final NO METHICILLIN RESISTANT STAPH AUREUS... Complete 05/01/19 14:20 Rectum VRE Culture - Final NO VANCOMYCIN RESISTANT ENTEROCOCCUS ... Complete 05/01/19 14:20 Rectum - Final NO CARBAPENEM-RESISTANT ENTEROBACTERI... Complete Critical Care - Subjective ROS Limited/Unobtainable: Yes Condition: critical, improving EKG Rhythm: Sinus Rhythm I&O: Intake and Output 05/02/19 05/03/19 19:00 07:00 Intake Total 1323.3 ml 1019.7 ml Output Total 1325 ml 1500 ml Balance -1.7 ml -480.3 ml Intake Oral 840 ml 360 ml IV Total 483.3 ml 659.7 ml Output Urine Total 1325 ml 1500 ml # Voids 1 # Bowel Movements 3 Labs: Laboratory Tests Test 05/03/19 04:30 White Blood Count 7.0 K/UL (4.8-10.8) Red Blood Count 3.10 M/UL (4.70-6.10) L Hemoglobin 7.9 G/DL (14.2-18.0) L Hematocrit 24.7 % (42.0-52.0) L Mean Corpuscular Volume 80 FL (80-99) Mean Corpuscular Hemoglobin 25.5 PG (27.0-31.0) L Mean Corpuscular Hemoglobin Concent 32.0 G/DL (32.0-36.0) Red Cell Distribution Width 17.8 % (11.6-14.8) H Platelet Count 172 K/UL (150-450) Mean Platelet Volume 5.4 FL (6.5-10.1) L Neutrophils (%) (Auto) % (45.0-75.0) Lymphocytes (%) (Auto) % (20.0-45.0) Monocytes (%) (Auto) % (1.0-10.0) Eosinophils (%) (Auto) % (0.0-3.0) Basophils (%) (Auto) % (0.0-2.0) Prothrombin Time 13.5 SEC (9.30-11.50) H Prothromb Time International Ratio 1.3 (0.9-1.1) H Activated Partial Thromboplast Time 28 SEC (23-33) Sodium Level 137 MMOL/L (136-145) Potassium Level 3.6 MMOL/L (3.5-5.1) Chloride Level 104 MMOL/L (98-107) Carbon Dioxide Level 24 MMOL/L (21-32) Anion Gap 9 mmol/L (5-15) Blood Urea Nitrogen 5 mg/dL (7-18) L Creatinine 0.8 MG/DL (0.55-1.30) Estimat Glomerular Filtration Rate > 60 mL/min (>60) Glucose Level 121 MG/DL (74-106) H Calcium Level 8.0 MG/DL (8.5-10.1) L Phosphorus Level 4.6 MG/DL (2.5-4.9) Magnesium Level 1.9 MG/DL (1.8-2.4) Matilde Chery MD May 03, 2019 10:14
[2019-05-03] MEDS ORDERED: Propofol 200mg/20ml IV ONE (11:30)
[2019-05-03] MEDS ORDERED: Phytonadione 10 MG in D5W 55 ML IVPB ONE (11:30)
[2019-05-03] MEDS ORDERED: Lidocaine 1% MPF 10mg/ml 5ml ONE (11:30)
--- NOTE | 2019-05-03 11:30 | NUR ---
NURSE NOTES:PT STARTED ON VIT K 10MG IVPB ,PRIOR TO STARTED EGD PROCEDURE. INR 1.3 DR RAIN ORDER TO GIVE VIT K 10MG IVPB X ONE.SUDDENLY PT BECAME VERY ANXIOUS AND C/O.S OF FEELING SOB AND AGITATED,STOOPED VIT K 10MG IVPB AND NOTIFIED TO DR JAMES THAT HE JUST CAME TO PERFORM EGD PROCEDURE. Nicole JAMES MADE AWARE AND NOTIFIED REGARDING PT BECAME VERY AGITATED AND ANXIOUS DURING VIT K 10MG IS INFUSING ,Nicole JAMES ORDER TO STOOPED VIT K INFUSION ALSO DR RAIN MADE AWARE & NOTIFIED ALSO DR RAIN ORDER TO STOOP VIT K INFUSION.PT SEEMS VERY ANXIOUS AND NERVOUS DR JAMES SPOKE WITH THE PATIENT & ENCOURAGED TO RELAX.PROVIDE OXYGEN 2L/MINS VIA N/C.TEACH PT BREATH AND RELAX ,STAYED WITH PT UNTIL HE SEEMS MORE CALM AND RELAXED,V/S STABLE AT THIS TIME.WILL CONT TO MONITOR.
--- NOTE | 2019-05-03 11:48 | NUR ---
NURSE NOTES: PT HAD EGD PROCEDURE AT BED SIDE,DONE BY DR JAMES .PT TOLERATED WELL PROCEDURE,V/S STABLE ,RECEIVED REPORT FROM HUDSON PALACIOS FROM GI DPT STATING THAT PT HAS SM ESOPHAGEAL VARICES & NO ACTIVE BLEEDING.NO ACUTE DISTRESS NOTED AT THIS TIME.WILL CONT TO MONITOR.
--- NOTE | 2019-05-03 11:51 | Pre-Procedure Note/Attestation ---
Pre-Procedure Note/Attestation Complete Prior to Procedure Planned Procedure: not applicable Procedure Narrative: egd Indications for Procedure Pre-Operative Diagnosis: GIB Attestation I attest that I discussed the nature of the procedure; its benefits; risks and complications; and alternatives (and the risks and benefits of such alternatives ), prior to the procedure, with the patient (or the patient's legal employment representative). I attest that, if there was a reasonable possibility of needing a blood transfusion, the patient (or the patient's legal employment representative) was given the [facility] standardized written summary, pursuant to the [place] Blood Safety Act ([place] Health and Safety Code # 1645, as amended). I attest that I re-evaluated the patient just prior to the surgery and that there has been no change in the patient's H&P, except as documented below: Luis Armando Victoria MD May 03, 2019 11:51
--- NOTE | 2019-05-03 12:17 | Diagnostic Imaging Report ---
Indication: Abdominal pain, vomiting, nausea, elevated liver function tests Technique: Mcwilliams-scale and duplex images of the upper abdomen were obtained Comparison: Findings: Gallbladder demonstrates equivocal gallstones. Multiple polyps are demonstrated. There is trace pericholecystic fluid. Gallbladder wall is thickened, measuring 5 mm thick. Sonographic Victor's sign is negative. Common bile duct measures 5 mm in diameter. No intrahepatic biliary ductal dilatation. Liver is somewhat enlarged, demonstrates diffusely increased echogenicity, consistent with diffuse hepatocellular disease, most likely fatty change. Portal vein and hepatic veins are patent. Pancreas is unremarkable. The spleen is enlarged, measuring 14 cm long axis dimension Left kidney measures 10.9 cm in length. Right kidney measures 11.4 cm length. Both kidneys demonstrate normal echogenicity. There is no hydronephrosis. No focal abnormality . Non-aneurysmal abdominal aorta . There is a small amount of ascites Impression: Liver demonstrates diffusely increased echogenicity, consistent with diffuse hepatocellular disease, most likely fatty change. Trace ascites Cholelithiasis. Gallbladder wall thickening and pericholecystic fluid are probably related to the hepatic disease, but raise possibility of acute cholecystitis. Consider hepatobiliary nuclear scan if there is high clinical suspicion Gallbladder polyps Negative for dilated bile ducts
--- NOTE | 2019-05-03 15:03 | Immediate Post-Op Evaluation ---
Immediate Post-Op Evalulation Immediate Post-Op Evalulation Procedure: egd Date of Evaluation: May 03, 2019 Time of Evaluation: 12:17 IV Fluids: 150ml 0.9ns Blood Products: none Estimated Blood Loss: negligible Blood Pressure Systolic: 125 Blood Pressure Diastolic: 64 Pulse Rate: 78 Respiratory Rate: 18 O2 Sat by Pulse Oximetry: 100 Temperature (Fahrenheit): 97.7 Pain Score (1-10): 0 Nausea: No Vomiting: No Complications none Patient Status: awake, reacts, patent Hydration Status: adequate Drug: Jessie Hollins MD May 03, 2019 15:03
--- NOTE | 2019-05-03 15:05 | 48 Hour Post Anesthesia Eval ---
Post Anesthesia Evaluation Procedure: egd Date of Evaluation: May 03, 2019 Time of Evaluation: 12:19 Blood Pressure Systolic: 114 0: 54 Pulse Rate: 78 Respiratory Rate: 18 Temperature (Fahrenheit): 97.7 O2 Sat by Pulse Oximetry: 100 Airway: patent Nausea: No Vomiting: No Pain Intensity: 0 Hydration Status: adequate Cardiopulmonary Status: stable Mental Status/LOC: patient returned to baseline Post-Anesthesia Complications: none Follow-up care needed: N/A Jessie Malave MD May 03, 2019 15:05
--- NOTE | 2019-05-03 15:06 | NUR ---
CASE MANAGEMENT: REVIEW 05/02/2019 SI:ALCOHOLIC CIRRHOSIS OF LIVER T 98.3 HR 64 RR 18 B/P 110/66 SATS 100% ON RA HGB 7.9 HCT 24.6 GLU 172 CA 8.1 TBILI 3.8 DBILI 1.5 AST 42 ALP 139 HEP PANEL PENDING IS: VENOFER IV QHS PROTONIX PO QD OCTREOTIDE DRIP @ 50 mL/HR ICU STATUS DCP: PATIENT TO BE DISCHARGED TO HOME ONCE MEDICALLY CLEARED. PLAN OF CARE: TRANSFUSE OCTREOTIDE DRIP 05/03/2019 SI:ALCOHOLIC CIRRHOSIS OF LIVER T 97.7 HR 57 RR 16 B/P 114/54 SATS 100% ON RA HGB 7.9 HCT 24.9 BUN 5 GLU 121 CA 8 IS: VENOFER IV QHS PROTONIX PO QD ICU STATUS DCP: PATIENT TO BE DISCHARGED TO HOME ONCE MEDICALLY CLEARED. PLAN OF CARE: TRANSFUSE EGD
--- NOTE | 2019-05-03 15:15 | NUR ---
iNSURANCE CLINICALS AND REVIEWS FAXED TO PLEASE FAX THE REVIEW/CLINICAL P- [phone] F- [phone]...REVIEW/CLINICAL
--- NOTE | 2019-05-03 18:15 | Procedure Note ---
DATE OF PROCEDURE: 05/03/2019 SURGEON: Luis Armando Victoria M.D. ANESTHESIA: Per Dr. Jessie Griggs. INSTRUMENT: Olympus adult flexible upper endoscope. INDICATION: Upper GI bleeding. REASON FOR PROCEDURE: The procedure, risks, benefits, and possible consequences, including hemorrhage, aspiration, perforation and infection, and alternative treatments, were explained to the patient/legal guardian by Dr. Luis Armando Victoria and the patient/legal guardian understood and accepted these risks. PROCEDURE IN DETAIL: After informed consent was obtained and the patient was adequately sedated, Olympus upper endoscope was advanced from mouth into the second portion of the duodenum and retroflexion was performed in the stomach. The patient had some whitish material in the stomach may be retained food making examination of the stomach somewhat limited. There was no evidence of any active bleeding at this time. The patient had evidence of esophageal varices grade 1, maximum grade 2. The varices decompressed after we put the air. There was no stigmata of the bleeding from the esophageal varices. In the stomach, there was evidence of portal hypertensive gastropathy. Retroflexion in the stomach showed no obvious gastric varices. At this time, the upper endoscope was retrieved and the procedure was terminated. We decided not to put the bands given this varices were small. SUMMARY OF FINDINGS: 1. Esophageal varices, grade 1, maximum grade 2 without any stigmata. 2. Portal hypertensive gastropathy. 3. Limited examination of the stomach with some food material in the stomach. 4. No gastric varices. RECOMMENDATIONS: 1. We will start liquid diet and advance as tolerated. 2. Start octreotide drip. 3. Continue with Protonix. 4. Monitor laboratories and transfuse to keep hemoglobin above 7. 5. We will send the stool for OB. 6. Consider colonoscopy if needed. I want to thank, Dr. Fracisco Helms, for this kind referral. Luis Armando Victoria M.D. DR: ALMA ROSA JOB#: [id number] CC: Fracisco Helms M.D.; Fax#: [phone]
--- NOTE | 2019-05-03 19:20 | NUR ---
HAND-OFF: Report given to .TERRANCE PALACIOS.
--- NOTE | 2019-05-03 19:52 | NUR ---
NURSE NOTES: pt awake and alert no c/o pain and sob iv infusing well site good reposition no acute distress noted
[2019-05-03] MEDS: Iron Sucrose 100 MG in NS 55 ML IV SCH (21:06)
--- NOTE | 2019-05-03 22:00 | NUR ---
NURSE NOTES: reposition and suction no acute distress noted
--- NOTE | 2019-05-03 23:07 | Internal Med Progress Note ---
Subjective Physician Name Fracisco Helms Attending Physician Fracisco Helms MD Current Medications Medications (Trade) Dose Ordered Sig/Solis Route PRN Reason Start Time Stop Time Status Last Admin Dose Admin Acetaminophen (Tylenol) 650 mg Q6H PRN ORAL MILD PAIN/TEMP>100 05/01/19 18:30 05/31/19 18:14 Acetaminophen/ Hydrocodone Bitart ([place] 5/325) 1 tab Q6H PRN ORAL For Pain 4-6 05/01/19 18:30 05/08/19 18:14 05/01/19 18:35 Iron Sucrose 100 mg/Sodium Chloride 60 ml @ 240 mls/hr BEDTIME IV 05/02/19 21:00 05/06/19 21:14 05/03/19 21:06 Lorazepam (Ativan 2mg/ml 1ml) 1 mg Q4H PRN IV Restlessness 05/01/19 18:15 05/08/19 18:14 Pantoprazole (Protonix) 40 mg DAILY ORAL 05/02/19 09:00 06/01/19 08:59 05/03/19 07:57 Allergies: Coded Allergies: No Known Allergies (Unverified , 04/26/18) Subjective awake, alert, responsive, No CP or SOB, No Active GI bleeding, Hgb: 7.9. Objective Last Vital Signs Date Time Temp Pulse Resp B/P (MAP) Pulse Ox O2 Delivery O2 Flow Rate FiO2 05/03/19 22:00 59 18 104/60 (75) 100 05/03/19 20:00 Room Air 05/03/19 19:00 97.8 Laboratory Tests Test 05/03/19 04:30 White Blood Count 7.0 K/UL (4.8-10.8) Red Blood Count 3.10 M/UL (4.70-6.10) L Hemoglobin 7.9 G/DL (14.2-18.0) L Hematocrit 24.7 % (42.0-52.0) L Mean Corpuscular Volume 80 FL (80-99) Mean Corpuscular Hemoglobin 25.5 PG (27.0-31.0) L Mean Corpuscular Hemoglobin Concent 32.0 G/DL (32.0-36.0) Red Cell Distribution Width 17.8 % (11.6-14.8) H Platelet Count 172 K/UL (150-450) Mean Platelet Volume 5.4 FL (6.5-10.1) L Neutrophils (%) (Auto) % (45.0-75.0) Lymphocytes (%) (Auto) % (20.0-45.0) Monocytes (%) (Auto) % (1.0-10.0) Eosinophils (%) (Auto) % (0.0-3.0) Basophils (%) (Auto) % (0.0-2.0) Prothrombin Time 13.5 SEC (9.30-11.50) H Prothromb Time International Ratio 1.3 (0.9-1.1) H Activated Partial Thromboplast Time 28 SEC (23-33) Sodium Level 137 MMOL/L (136-145) Potassium Level 3.6 MMOL/L (3.5-5.1) Chloride Level 104 MMOL/L (98-107) Carbon Dioxide Level 24 MMOL/L (21-32) Anion Gap 9 mmol/L (5-15) Blood Urea Nitrogen 5 mg/dL (7-18) L Creatinine 0.8 MG/DL (0.55-1.30) Estimat Glomerular Filtration Rate > 60 mL/min (>60) Glucose Level 121 MG/DL (74-106) H Calcium Level 8.0 MG/DL (8.5-10.1) L Phosphorus Level 4.6 MG/DL (2.5-4.9) Magnesium Level 1.9 MG/DL (1.8-2.4) Microbiology Date/Time Source Procedure Growth Status 05/01/19 14:20 Nasal Nares MRSA Culture - Final NO METHICILLIN RESISTANT STAPH AUREUS... Complete 05/01/19 14:20 Rectum VRE Culture - Final NO VANCOMYCIN RESISTANT ENTEROCOCCUS ... Complete 05/01/19 14:20 Rectum - Final NO CARBAPENEM-RESISTANT ENTEROBACTERI... Complete Intake and Output 05/02/19 05/03/19 19:00 07:00 Intake Total 1323.3 ml 1019.7 ml Output Total 1325 ml 1500 ml Balance -1.7 ml -480.3 ml Intake Oral 840 ml 360 ml IV Total 483.3 ml 659.7 ml Output Urine Total 1325 ml 1500 ml # Voids 1 # Bowel Movements 3 Objective General: No acute distress, awake and alert HEENT: NCAT, sclera anicteric, PERRL, EOMI. Neck: Supple, no significant jugular venous distention, Lungs: Good inspiratory effort, no accessory muscle use, clear to auscultation bilaterally, no Wheeze or Rales. Heart: Regular rate and rhythm, normal S1/S2, no murmurs/gallops Abdomen: soft, nontender, nondistended. Normoactive bowel sounds. / Rectal: Refused and deferred. Extremities: No Cyanosis , clubbing or edema. Neuro: A&O x 3, Able to move all extremities Skin: warm, no rashes or lesions Psych: Normal mood and affect Assessment/Plan Assessment/Plan (1) Esophageal varices ICD Codes: I85.00 - Esophageal varices without bleeding SNOMED: 05855881 (2) Severe Anemia, Iron deficiency anemia ICD Codes: D64.9 - Anemia, unspecified SNOMED: 804436323 (3) Alcoholic cirrhosis ICD Codes: K70.30 - Alcoholic cirrhosis of liver without ascites SNOMED: 628821270 (4) GI (gastrointestinal bleed) ICD Codes: K92.2 - Gastrointestinal hemorrhage, unspecified SNOMED: 32226985 Plan: monitor labs F/U with Dr. Victoria recommendation. On Venofer IV EGD: SUMMARY OF FINDINGS: 1. Esophageal varices, grade 1, maximum grade 2 without any stigmata. 2. Portal hypertensive gastropathy. 3. Limited examination of the stomach with some food material in the stomach. 4. No gastric varices Fracisco Helms MD May 03, 2019 23:07
[2019-05-04] VITALS (11 sets, daily range): BP systolic 97–114; BP diastolic 56–64
--- NOTE | 2019-05-04 | NUR ---
NURSE NOTES: asleep n0 apparent acute distress noted
--- NOTE | 2019-05-04 02:00 | NUR ---
NURSE NOTES: asleep no c/o pain or sob hr 50-54 SB
--- NOTE | 2019-05-04 04:00 | NUR ---
NURSE NOTES: refuse bed bath no c/o of pain and sobhrb 52-60 sbrady o2sat 100 o/o
[2019-05-04 05:37] LABS: BASOPHILS % (AUTO) 1.1 % (0.0-2.0); HEMATOCRIT 24.4 % (42.0-52.0); LYMPHOCYTES % (AUTO) 21.2 % (20.0-45.0); MEAN CORPUSCULAR VOLUME 79 FL (80-99); MONOCYTES % (AUTO) 7.1 % (1.0-10.0); NEUTROPHILS % (AUTO) 69.5 % (45.0-75.0); PLATELET COUNT 179 K/UL (150-450); RED BLOOD COUNT 3.08 M/UL (4.70-6.10); WHITE BLOOD COUNT 6.5 K/UL (4.8-10.8)
[2019-05-04 05:50] LABS: INR 1.3 (0.9-1.1)
--- NOTE | 2019-05-04 06:00 | NUR ---
NURSE NOTES: PT REFUSE BED BATH
[2019-05-04 06:19] LABS: ALANINE AMINOTRANSFERASE 20 U/L (12-78); ALBUMIN 2.9 G/DL (3.4-5.0); ALKALINE PHOSPHATASE 146 U/L (46-116); ANION GAP 12 mmol/L (5-15); ASPARTATE AMINO TRANSFERASE 29 U/L (15-37); BILIRUBIN,TOTAL 3.9 MG/DL (0.2-1.0); BLOOD UREA NITROGEN 7 mg/dL (7-18); CARBON DIOXIDE 22 MMOL/L (21-32); CHLORIDE 104 MMOL/L (98-107); CREATININE 0.8 MG/DL (0.55-1.30); PHOSPHORUS 4.7 MG/DL (2.5-4.9); POTASSIUM 3.3 MMOL/L (3.5-5.1); SODIUM 138 MMOL/L (136-145)
[2019-05-04 06:52] LABS: BILIRUBIN,DIRECT 2.2 MG/DL (0.0-0.3)
--- NOTE | 2019-05-04 07:14 | NUR ---
HAND-OFF: Report given to EMMANUEL PALACIOS USING SBAR .
--- NOTE | 2019-05-04 07:30 | NUR ---
NURSE NOTES: Report received from Nanette PALACIOS. Pt alert and oriented x 4, able to make needs known. Pt denies pain or discomfort at this time. Pt on cardiac specialist, SB 40s-50s. Pt on room air saturating 100%. Pt voiding freely per urinal. RAC 18 G and LFA 20 G heplock noted and intact. Safety measures in place with bed locked and in lowest position, side rails x3 up and bed alarm on. Will continue to monitor and continue plan of care.
--- NOTE | 2019-05-04 08:39 | NUR ---
NURSE NOTES: Trae MEDIA PRODUCTION OPERATOR here to see pt. Pt diet advanced from clear diet to soft. Ok to transfer to med surg per GI.
--- NOTE | 2019-05-04 09:30 | NUR ---
Social Service Note MELITON met with patient to obtain history prior to admission. Patient states he lives at home with his mother. Patient states he has recurrent pancreatitis. Patient PCP is Dr. Serafin Peres [phone]. Patient appears non-compliant with follow up care. Patient admits to drinking on a regular basis however doesn't believe he has alcohol dependency. Patient acknowledges that his pancreatitis flare ups can be caused by alcohol use. Patient not receptive to community resources for alcohol treatment, support groups or AA. MELITON encouraged patient to follow up with PCP upon discharge. Patient states he lives a home with his mother. Patient will return home upon discharge.
--- NOTE | 2019-05-04 10:08 | GI Progress Note ---
Assessment/Plan Problems: (1) Severe anemia ICD Codes: D64.9 - Anemia, unspecified SNOMED: 875547414 (2) Hemorrhagic shock ICD Codes: R57.8 - Other shock SNOMED: 275256 (3) GI (gastrointestinal bleed) ICD Codes: K92.2 - Gastrointestinal hemorrhage, unspecified SNOMED: 04315471 (4) Esophageal varices ICD Codes: I85.00 - Esophageal varices without bleeding SNOMED: 29447047 (5) Anemia ICD Codes: D64.9 - Anemia, unspecified SNOMED: 629095297 (6) Alcoholic cirrhosis ICD Codes: K70.30 - Alcoholic cirrhosis of liver without ascites SNOMED: 800426257 (7) Abdominal pain ICD Codes: R10.9 - Unspecified abdominal pain SNOMED: 92679647 (8) Abnormal LFTs (liver function tests) ICD Codes: R94.5 - Abnormal results of liver function studies SNOMED: 634790087 Status: stable Status Narrative Discussed with Dr. Victoria. Assessment/Plan SUMMARY OF FINDINGS: 1. Esophageal varices, grade 1, maximum grade 2 without any stigmata. 2. Portal hypertensive gastropathy. 3. Limited examination of the stomach with some food material in the stomach. 4. No gastric varices. RECOMMENDATIONS: 1. We will start liquid diet and advance as tolerated. 2. dyp[ octreotide drip. 3. Continue with Protonix. 4. Monitor laboratories and transfuse to keep hemoglobin above 7. 5. We will send the stool for OB. 6. Consider colonoscopy if needed. follow up hepatitis panel The patient was seen and examined at bedside and all new and available data was reviewed in the patients chart. I agree with the above findings, impression and plan. (Patient seen earlier today. Signature stamp does not reflect patient encounter time.). - Luis Armando Victoria MD Subjective Gastrointestinal/Abdominal: Reports: no symptoms Objective Last 24 Hour Vital Signs Date Time Temp Pulse Resp B/P (MAP) Pulse Ox O2 Delivery O2 Flow Rate FiO2 05/04/19 08:00 50 05/04/19 08:00 Room Air 05/04/19 08:00 98.3 53 15 109/64 (79) 100 05/04/19 07:00 52 14 103/63 (76) 99 05/04/19 06:00 98.6 51 14 103/63 (76) 100 05/04/19 05:00 98.6 53 14 106/59 (75) 100 05/04/19 04:00 53 14 106/58 (74) 100 05/04/19 04:00 53 05/04/19 04:00 Room Air 05/04/19 03:00 53 14 99/59 (72) 100 05/04/19 02:00 53 15 106/62 (77) 100 05/04/19 01:00 50 15 97/58 (71) 100 05/04/19 00:00 Room Air 05/04/19 00:00 98.0 59 18 104/56 (72) 100 05/04/19 00:00 54 05/03/19 23:00 61 18 107/63 (78) 100 05/03/19 22:00 59 18 104/60 (75) 100 05/03/19 21:00 65 18 107/63 (78) 100 05/03/19 20:00 63 05/03/19 20:00 71 21 105/71 (82) 100 05/03/19 20:00 Room Air 05/03/19 19:00 97.8 62 19 99/62 (74) 100 05/03/19 18:00 58 21 102/57 (72) 100 05/03/19 18:00 63 19 107/68 (81) 100 05/03/19 17:00 60 16 91/68 (76) 100 05/03/19 16:00 Room Air 05/03/19 16:00 98.0 64 15 101/60 (74) 100 05/03/19 16:00 68 05/03/19 15:05 78 18 100 05/03/19 15:03 78 18 100 05/03/19 15:00 57 16 104/66 (79) 100 05/03/19 14:00 55 15 99/57 (71) 100 05/03/19 13:00 61 15 104/58 (73) 100 05/03/19 12:00 Room Air 05/03/19 12:00 63 05/03/19 12:00 97.7 57 16 114/54 (74) 100 05/03/19 12:00 57 16 114/54 (74) 100 05/03/19 11:00 57 17 96/63 (74) 100 Intake and Output 05/03/19 05/04/19 19:00 07:00 Intake Total 1050 ml 160 ml Output Total 800 ml 1700 ml Balance 250 ml -1540 ml Intake Oral 800 ml 100 ml IV Total 250 ml 60 ml Output Urine Total 800 ml 1700 ml Laboratory Tests Test 05/04/19 04:45 White Blood Count 6.5 K/UL (4.8-10.8) Red Blood Count 3.08 M/UL (4.70-6.10) L Hemoglobin 8.0 G/DL (14.2-18.0) L Hematocrit 24.4 % (42.0-52.0) L Mean Corpuscular Volume 79 FL (80-99) L Mean Corpuscular Hemoglobin 26.0 PG (27.0-31.0) L Mean Corpuscular Hemoglobin Concent 32.9 G/DL (32.0-36.0) Red Cell Distribution Width 18.0 % (11.6-14.8) H Platelet Count 179 K/UL (150-450) Mean Platelet Volume 6.4 FL (6.5-10.1) L Neutrophils (%) (Auto) 69.5 % (45.0-75.0) Lymphocytes (%) (Auto) 21.2 % (20.0-45.0) Monocytes (%) (Auto) 7.1 % (1.0-10.0) Eosinophils (%) (Auto) 1.0 % (0.0-3.0) Basophils (%) (Auto) 1.1 % (0.0-2.0) Prothrombin Time 13.6 SEC (9.30-11.50) H Prothromb Time International Ratio 1.3 (0.9-1.1) H Activated Partial Thromboplast Time 30 SEC (23-33) Sodium Level 138 MMOL/L (136-145) Potassium Level 3.3 MMOL/L (3.5-5.1) L Chloride Level 104 MMOL/L (98-107) Carbon Dioxide Level 22 MMOL/L (21-32) Anion Gap 12 mmol/L (5-15) Blood Urea Nitrogen 7 mg/dL (7-18) Creatinine 0.8 MG/DL (0.55-1.30) Estimat Glomerular Filtration Rate > 60 mL/min (>60) Glucose Level 118 MG/DL (74-106) H Calcium Level 8.0 MG/DL (8.5-10.1) L Phosphorus Level 4.7 MG/DL (2.5-4.9) Magnesium Level 1.8 MG/DL (1.8-2.4) Total Bilirubin 3.9 MG/DL (0.2-1.0) H Direct Bilirubin 2.2 MG/DL (0.0-0.3) H Aspartate Amino Transf (AST/SGOT) 29 U/L (15-37) Alanine Aminotransferase (ALT/SGPT) 20 U/L (12-78) Alkaline Phosphatase 146 U/L (46-116) H Total Protein 5.9 G/DL (6.4-8.2) L Albumin 2.9 G/DL (3.4-5.0) L Globulin 3.0 g/dL Albumin/Globulin Ratio 1.0 (1.0-2.7) Height (Feet): 5 Height (Inches): 6.00 Weight (Pounds): 160 General Appearance: WD/WN, no apparent distress, alert Cardiovascular: normal rate Respiratory/Chest: normal breath sounds, no respiratory distress Abdominal Exam: normal bowel sounds, non tender, soft Extremities: normal range of motion, non-tender Juliette Diop NP May 04, 2019 10:07
--- NOTE | 2019-05-04 10:38 | Pulmonolgy Critical Care Note ---
Critical Care - Asmt/Plan Problems: (1) Hemorrhagic shock (2) Esophageal varices (3) Alcoholic cirrhosis (4) GI (gastrointestinal bleed) (5) Severe anemia Respiratory: monitor respiratory rate Cardiac: continue to monitor HR/BP Renal: F/U I&O, check electrolytes Infectious Disease: check cultures Gastrointestinal: continue feedings/current rate Endocrine: monitor blood sugar, check HgA1C Hematologic: transfuse if hgb<8.5 Neurologic: PRN Ativan, keep patient comfortable Affect: PRN ativan Prophylaxis: Protonix, Heparin Time Spent (Minutes): 40 Notes Reviewed: cardio, renal Discussed with: nurses, consultants, returned case inspectorchild care centre manager - Objective Last 24 Hour Vital Signs Date Time Temp Pulse Resp B/P (MAP) Pulse Ox O2 Delivery O2 Flow Rate FiO2 05/04/19 10:00 70 20 99/60 (73) 100 05/04/19 09:00 82 17 114/56 (75) 100 05/04/19 08:00 50 05/04/19 08:00 Room Air 05/04/19 08:00 98.3 53 15 109/64 (79) 100 05/04/19 07:00 52 14 103/63 (76) 99 05/04/19 06:00 98.6 51 14 103/63 (76) 100 05/04/19 05:00 98.6 53 14 106/59 (75) 100 05/04/19 04:00 53 14 106/58 (74) 100 05/04/19 04:00 53 05/04/19 04:00 Room Air 05/04/19 03:00 53 14 99/59 (72) 100 05/04/19 02:00 53 15 106/62 (77) 100 05/04/19 01:00 50 15 97/58 (71) 100 05/04/19 00:00 Room Air 05/04/19 00:00 98.0 59 18 104/56 (72) 100 05/04/19 00:00 54 05/03/19 23:00 61 18 107/63 (78) 100 05/03/19 22:00 59 18 104/60 (75) 100 05/03/19 21:00 65 18 107/63 (78) 100 05/03/19 20:00 63 05/03/19 20:00 71 21 105/71 (82) 100 05/03/19 20:00 Room Air 05/03/19 19:00 97.8 62 19 99/62 (74) 100 05/03/19 18:00 58 21 102/57 (72) 100 05/03/19 18:00 63 19 107/68 (81) 100 05/03/19 17:00 60 16 91/68 (76) 100 05/03/19 16:00 Room Air 05/03/19 16:00 98.0 64 15 101/60 (74) 100 05/03/19 16:00 68 05/03/19 15:05 78 18 100 05/03/19 15:03 78 18 100 05/03/19 15:00 57 16 104/66 (79) 100 05/03/19 14:00 55 15 99/57 (71) 100 05/03/19 13:00 61 15 104/58 (73) 100 05/03/19 12:00 Room Air 05/03/19 12:00 63 05/03/19 12:00 97.7 57 16 114/54 (74) 100 05/03/19 12:00 57 16 114/54 (74) 100 05/03/19 11:00 57 17 96/63 (74) 100 Status: awake Condition: improving HEENT: atraumatic Lungs: clear Heart: HR/BP stable Abdomen: non-tender, active bowel sounds Extremities: no C/C/E Decubiti: location Micro: Microbiology Date/Time Source Procedure Growth Status 05/01/19 14:20 Nasal Nares MRSA Culture - Final NO METHICILLIN RESISTANT STAPH AUREUS... Complete 05/01/19 14:20 Rectum VRE Culture - Final NO VANCOMYCIN RESISTANT ENTEROCOCCUS ... Complete 05/01/19 14:20 Rectum - Final NO CARBAPENEM-RESISTANT ENTEROBACTERI... Complete Critical Care - Subjective ROS Limited/Unobtainable: Yes Condition: critical EKG Rhythm: Sinus Rhythm I&O: Intake and Output 05/03/19 05/04/19 19:00 07:00 Intake Total 1050 ml 160 ml Output Total 800 ml 1700 ml Balance 250 ml -1540 ml Intake Oral 800 ml 100 ml IV Total 250 ml 60 ml Output Urine Total 800 ml 1700 ml Labs: Laboratory Tests Test 05/04/19 04:45 White Blood Count 6.5 K/UL (4.8-10.8) Red Blood Count 3.08 M/UL (4.70-6.10) L Hemoglobin 8.0 G/DL (14.2-18.0) L Hematocrit 24.4 % (42.0-52.0) L Mean Corpuscular Volume 79 FL (80-99) L Mean Corpuscular Hemoglobin 26.0 PG (27.0-31.0) L Mean Corpuscular Hemoglobin Concent 32.9 G/DL (32.0-36.0) Red Cell Distribution Width 18.0 % (11.6-14.8) H Platelet Count 179 K/UL (150-450) Mean Platelet Volume 6.4 FL (6.5-10.1) L Neutrophils (%) (Auto) 69.5 % (45.0-75.0) Lymphocytes (%) (Auto) 21.2 % (20.0-45.0) Monocytes (%) (Auto) 7.1 % (1.0-10.0) Eosinophils (%) (Auto) 1.0 % (0.0-3.0) Basophils (%) (Auto) 1.1 % (0.0-2.0) Prothrombin Time 13.6 SEC (9.30-11.50) H Prothromb Time International Ratio 1.3 (0.9-1.1) H Activated Partial Thromboplast Time 30 SEC (23-33) Sodium Level 138 MMOL/L (136-145) Potassium Level 3.3 MMOL/L (3.5-5.1) L Chloride Level 104 MMOL/L (98-107) Carbon Dioxide Level 22 MMOL/L (21-32) Anion Gap 12 mmol/L (5-15) Blood Urea Nitrogen 7 mg/dL (7-18) Creatinine 0.8 MG/DL (0.55-1.30) Estimat Glomerular Filtration Rate > 60 mL/min (>60) Glucose Level 118 MG/DL (74-106) H Calcium Level 8.0 MG/DL (8.5-10.1) L Phosphorus Level 4.7 MG/DL (2.5-4.9) Magnesium Level 1.8 MG/DL (1.8-2.4) Total Bilirubin 3.9 MG/DL (0.2-1.0) H Direct Bilirubin 2.2 MG/DL (0.0-0.3) H Aspartate Amino Transf (AST/SGOT) 29 U/L (15-37) Alanine Aminotransferase (ALT/SGPT) 20 U/L (12-78) Alkaline Phosphatase 146 U/L (46-116) H Total Protein 5.9 G/DL (6.4-8.2) L Albumin 2.9 G/DL (3.4-5.0) L Globulin 3.0 g/dL Albumin/Globulin Ratio 1.0 (1.0-2.7) Matilde Chery MD May 04, 2019 10:38
[2019-05-04] MEDS ORDERED: PANTOPRAZOLE SO40 MG ORAL (10:39)
--- NOTE | 2019-05-04 11:01 | NUR ---
CASE MANAGEMENT:REVIEW 05/04/19 SI: ALCOHOLIC CIRRHOSIS ESOPHAGEAL VARICES. GIB 98.3 53 15 109/64 100% ON RA H/H-8.0/24.4 K-3.3 IS: IV VENOFER QHS PROTONIX PO QD NORCO PO Q6HRS PRN : DOWNGRADE TO MED/SURG DCP: FROM HOME
[2019-05-04] MEDS ORDERED: NS 275ml ONE (11:09)
[2019-05-04] MEDS ORDERED: Tubing IV Secondary IV ONE (11:09)
--- NOTE | 2019-05-04 11:17 | NUR ---
NURSE NOTES: Pt given discharge instructions and prescription. Left and Right arm heplocks removed. Pt refused wheelchair and escorted by RN to the front of the hospital.
--- NOTE | 2019-05-04 13:20 | Discharge Summary ---
Discharge Summary Discharge Summary _ DATE OF ADMISSION: 05/01/2019 DATE OF DISCHARGE: 05/04/2019 DISCHARGED BY: Dr. Helms REASON FOR ADMISSION: 28 years old male with past medical history of alcoholic liver disease, history of GI bleeding, secondary to esophageal varices, status post variceal banding, anemia requiring blood transfusion in the past, presented to the hospital complaining of abdominal pain, associated with nausea , vomiting,feeling dizzy and lightheaded. Shortly after initial evaluation patient was noted to have hemoglobin 3.9 and hematocrit 13.2. MCV 73 . INR 1.2. Total bilirubin 2.0; direct bilirubin 0.8, stable AST and ALT. Troponin negative. Urinalysis revealed no evidence of UTI , +2 protein , +1 leukocyte esterase. Urine toxicology screen was negative. Serum alcohol was less than 3. CT of the abdomen and pelvis revealed thickening of the gallbladder wall with a small gallstone. Cholecystitis not excluded. Hepatosplenomegaly. Presence of varices suggestive of portal hypertension. Patient subsequently admitted to ICU with severe anemia , most likely due to GI bleeding secondary to history of esophageal varices. CONSULTANTS: pulmonary/critical care Dr. Chery GI specialist Dr. Victoria [facility] COURSE: Patient admitted to ICU. Patient typed, crossed and transfused with 2 units in ER already. Serial monitoring of hemoglobin and hematocrit with goal to keep hemoglobin above 7 initiated. DVT prophylaxis with SCD provided. Patient started on octreotide drip and IV PPI. GI specialist followed. Patient subsequently undergone upper endoscopy due to upper GI bleeding. Noted esophageal varices grade 1, maximum grade 2 without any stigmata. Portal hypertensive gastropathy, no gastric varices. Limited examination of the stomach with some food material in stomach. Patient started on liquid diet and diet was advanced as tolerated. Octreotide drip and PPI were continued. Hemoglobin was closely monitored to keep hemoglobin above 7. Patient undergone additional 2 units of packed red blood cells transfusion with total of 4 units of PRBC transfusion , while in the hospital. Prior to discharge hemoglobin 8 from initial 3.9 and hematocrit 24.4 from initial 13.2. Anemia work-up was consistent with anemia of iron deficiency with iron of 8 and TIBC of 573. Patient received IV Venofer while in the hospital. Hepatitis panel still pending. Pain management was addressed as needed. Supportive care provided. Patient received vitamin K without much improvement in INR . INR 1.3 prior to discharge. Patient clinically stabilized and was ready for discharge home. Patient was counseled on abstinence from alcohol. FINAL DIAGNOSES: Hemorrhagic shock due to severe symptomatic anemia Severe iron deficiency anemia Upper GI bleeding Status post upper endoscopy Esophageal varices grade 1 , maximum grade 2 , without any stigmata Portal hypertensive gastropathy Alcoholic cirrhosis DISCHARGE MEDICATIONS: See Medication Reconciliation list. DISCHARGE INSTRUCTIONS: Patient was discharged home. Follow up with primary care provider in one week. I have been assigned to dictate discharge summary for this account. I was not involved in the patient's management. Anna Mejía NP May 04, 2019 13:20
== END 2019-05-04 11:10 | disposition home or self-care (01) | DRG 253 ==
LOC: EMR 12:53 → EDBEDREQ 14:24 → ICU 14:43
PROC: 30233N1 Transfusion of Nonautologous Red Blood Cells into Peripheral Vein, Percutaneous Approach (ICD-10-PCS; principal; 2019-05-01)
PROC: 0DJ08ZZ Inspection of Upper Intestinal Tract, Via Natural or Artificial Opening Endoscopic (ICD-10-PCS; 2019-05-03)
DX: K92.2 Gastrointestinal hemorrhage, unspecified (principal); R57.8 Other shock; K76.6 Portal hypertension; D50.9 Iron deficiency anemia, unspecified; F10.20 Alcohol dependence, uncomplicated; E86.0 Dehydration; K31.89 Other diseases of stomach and duodenum; K70.30 Alcoholic cirrhosis of liver without ascites; I85.00 Esophageal varices without bleeding
CPT/HCPCS: 36415; 71045; 74177; 76700; 80048; 80053; 80307; 80329; 81003; 82248; 82550; 82553; 82746; 83540; 83550; 83690; 83735; 84100; 84484; 85007; 85025; 85610; 85730; 86705; 86709; 86803; 86850; 86900; 86901; 86920; 87081; 87340; 93005; 93970; 94003; 94150; 96361; 96374; 96375; 99291; J2405

== ENCOUNTER 2019-05-12 21:57 | Inpatient (IN) | payer OTHER ==
[~2019-05-12] VITALS: Ht 170.2 cm; Wt 77.1 kg
[~2019-05-12 21:57] MED LIST changes: +NKM; +PANTOPRAZOLE SO40 MG ORAL
[2019-05-12 22:15] VITALS: BP 139/89
--- NOTE | 2019-05-12 22:15 | NUR ---
ED Nurse Note: Patient walked in to ER c/o abdominal pain N/V x2 days. AAO x4, VSS at this time, skin is dry warm to touch.
[2019-05-12 22:25] LABS: BASOPHILS % (AUTO) 1.6 % (0.0-2.0); HEMATOCRIT 29.3 % (42.0-52.0); HEMOGLOBIN 9.1 G/DL (14.2-18.0); LYMPHOCYTES % (AUTO) 8.6 % (20.0-45.0); MEAN CORPUSCULAR VOLUME 78 FL (80-99); MONOCYTES % (AUTO) 7.2 % (1.0-10.0); NEUTROPHILS % (AUTO) 82.6 % (45.0-75.0); PLATELET COUNT 180 K/UL (150-450); RED BLOOD COUNT 3.74 M/UL (4.70-6.10); RED CELL DISTRIBUTION WIDTH 17.8 % (11.6-14.8); WHITE BLOOD COUNT 7.6 K/UL (4.8-10.8)
[2019-05-12 22:36] LABS: INR 1.1 (0.9-1.1)
[2019-05-12 22:43] LABS: ANION GAP 16 mmol/L (5-15); BLOOD UREA NITROGEN 4 mg/dL (7-18); CALCIUM 9.3 MG/DL (8.5-10.1); CARBON DIOXIDE 22 MMOL/L (21-32); CHLORIDE 103 MMOL/L (98-107); CREATININE 0.8 MG/DL (0.55-1.30); POTASSIUM 3.3 MMOL/L (3.5-5.1); SODIUM 141 MMOL/L (136-145)
[2019-05-12 22:53] LABS: ALANINE AMINOTRANSFERASE 32 U/L (12-78); ALBUMIN 4.2 G/DL (3.4-5.0); ALBUMIN/GLOBULIN RATIO 1.1 (1.0-2.7); ALKALINE PHOSPHATASE 229 U/L (46-116); ASPARTATE AMINO TRANSFERASE 59 U/L (15-37); BILIRUBIN,TOTAL 2.9 MG/DL (0.2-1.0)
[2019-05-12 23:00] LABS: BILIRUBIN,DIRECT 1.3 MG/DL (0.0-0.3)
--- NOTE | 2019-05-12 23:51 | Diagnostic Imaging Report ---
Indication: Abdominal pain Technique: Grayscale and duplex Doppler imaging of the abdomen performed. Comparison: None Findings: The liver is unremarkable. Doppler interrogation of the main portal vein shows patency with hepatopedal, monophasic flow. There is no biliary ductal dilatation identified. Gallbladder is notable for stones and wall thickening. Sonographic Victor's sign was negative per technologist. Spleen is enlarged measuring 15 cm. CBD is 4 mm. There demonstrated part of the pancreas, aorta and IVC show no definite abnormalities. Both kidneys appear unremarkable. There is no hydronephrosis. IMPRESSION: Cholelithiasis with wall thickening. Correlate clinically for cholecystitis. Splenomegaly
[2019-05-13] VITALS (7 sets, daily range): BP systolic 108–145; BP diastolic 60–89
--- NOTE | 2019-05-13 00:20 | Emergency Room Report ---
History of Present Illness General Chief Complaint: Abdominal Pain Source: Patient Present Illness HPI 28-year-old male presents with right upper quadrant pain x3 days, endorses nausea vomiting, no aggravating or relieving factors, he endorses a sharp constant right upper quadrant pain that radiates to his right upper back, patient presents for evaluation Allergies: Coded Allergies: No Known Allergies (Unverified , 04/26/18) Patient History Past Medical History: see triage record Reviewed Nursing Documentation: PMH: Agreed; PSxH: Agreed Nursing Documentation-PMH Past Medical History: No Stated History Hx Cardiac Problems: No Hx Cancer: No Hx Gastrointestinal Problems: Yes - pancreatitis Hx Neurological Problems: Yes Hx Seizures: Yes Review of Systems Constitutional: Denies: chills, fever Eye: Denies: blurred vision, double vision ENT: Denies: throat pain, nasal discharge Respiratory: Denies: cough, shortness of breath Cardiovascular: Denies: chest pain, palpitations Gastrointestinal: Reports: abdominal pain, nausea, vomiting; Denies: diarrhea Genitourinary: Denies: dysuria, pain Musculoskeletal: Denies: back pain, muscle pain Skin: Denies: rash, lesions Neurological: Denies: headache, focal weakness Hematologic/Lymphatic: Denies: easy bleeding, easy bruising All Other Systems: negative except mentioned in HPI Physical Exam Vital Signs Date Time Temp Pulse Resp B/P (MAP) Pulse Ox O2 Delivery O2 Flow Rate FiO2 05/12/19 21:59 98.1 125 18 139/89 (106) 98 Room Air Sp02 EP Interpretation: reviewed, normal General Appearance: well appearing, no apparent distress, alert Head: normocephalic, atraumatic Eyes: bilateral eye PERRL, bilateral eye EOMI ENT: uvula midline, moist mucus membranes Neck: supple, thyroid normal, supple/symm/no masses Respiratory: lungs clear, no respiratory distress, no retraction, no accessory muscle use Cardiovascular #1: normal peripheral pulses, regular rate, rhythm, no edema, no gallop, no murmur Gastrointestinal: soft, other - Right upper quadrant pain, positive Victor's, positive tenderness to palpation right upper quadrant Musculoskeletal: normal inspection Neurologic: alert, oriented x3 Psychiatric: mood/affect normal Skin: no rash, warm/dry Medical Decision Making Diagnostic Impression: Primary Impression: Cholecystitis Additional Impressions: Symptomatic cholelithiasis Anemia ER Course 28-year-old male presents with right upper quadrant concerning for cholecystitis versus symptomatic cholelithiasis, will provide patient with pain medication, patient ultrasound shows gallbladder wall thickening, with positive Victor's, will admit patient for symptomatically lithiasis, Zosyn was given, patient will be admitted to [facility], for possible surgical disposition\ Patient admitted to Dr. Helms Laboratory Tests Test 05/12/19 22:11 05/13/19 01:11 White Blood Count 7.6 K/UL (4.8-10.8) Red Blood Count 3.74 M/UL (4.70-6.10) L Hemoglobin 9.1 G/DL (14.2-18.0) L Hematocrit 29.3 % (42.0-52.0) L Mean Corpuscular Volume 78 FL (80-99) L Mean Corpuscular Hemoglobin 24.5 PG (27.0-31.0) L Mean Corpuscular Hemoglobin Concent 31.2 G/DL (32.0-36.0) L Red Cell Distribution Width 17.8 % (11.6-14.8) H Platelet Count 180 K/UL (150-450) Mean Platelet Volume 5.2 FL (6.5-10.1) L Neutrophils (%) (Auto) 82.6 % (45.0-75.0) H Lymphocytes (%) (Auto) 8.6 % (20.0-45.0) L Monocytes (%) (Auto) 7.2 % (1.0-10.0) Eosinophils (%) (Auto) 0.0 % (0.0-3.0) Basophils (%) (Auto) 1.6 % (0.0-2.0) Prothrombin Time 11.9 SEC (9.30-11.50) H Prothrombin Time INR 1.1 (0.9-1.1) PTT 27 SEC (23-33) Sodium Level 141 MMOL/L (136-145) Potassium Level 3.3 MMOL/L (3.5-5.1) L Chloride Level 103 MMOL/L (98-107) Carbon Dioxide Level 22 MMOL/L (21-32) Anion Gap 16 mmol/L (5-15) H Blood Urea Nitrogen 4 mg/dL (7-18) L Creatinine 0.8 MG/DL (0.55-1.30) Estimate Glomerular Filtration Rate > 60 mL/min (>60) Glucose Level 158 MG/DL (74-106) H Calcium Level 9.3 MG/DL (8.5-10.1) Total Bilirubin 2.9 MG/DL (0.2-1.0) H Direct Bilirubin 1.3 MG/DL (0.0-0.3) H Aspartate Amino Transferase (AST) 59 U/L (15-37) H Alanine Aminotransferase (ALT) 32 U/L (12-78) Alkaline Phosphatase 229 U/L (46-116) H Total Protein 8.0 G/DL (6.4-8.2) Albumin 4.2 G/DL (3.4-5.0) Globulin 3.8 g/dL Albumin/Globulin Ratio 1.1 (1.0-2.7) Lipase 146 U/L (73-393) Urine Color Yellow Urine Appearance Clear Urine pH 8 (4.5-8.0) Urine Specific [place] 1.010 (1.005-1.035) Urine Protein 3+ (NEGATIVE) H Urine Glucose (UA) Negative (NEGATIVE) Urine Ketones Negative (NEGATIVE) Urine Blood Negative (NEGATIVE) Urine Nitrite Negative (NEGATIVE) Urine Bilirubin Negative (NEGATIVE) Urine Urobilinogen 1 MG/DL (0.0-1.0) H Urine Leukocyte Esterase 1+ (NEGATIVE) H Urine RBC 0-2 /HPF (0 - 0) H Urine WBC 0-2 /HPF (0 - 0) Urine Squamous Epithelial Cells None /LPF (NONE/OCC) Urine Bacteria None /HPF (NONE) CT/MRI/US Diagnostic Results CT/MRI/US Diagnostic Results : Impression Preliminary Findings Only See Final Report For Complete Findings US ABDOMEN: The gallbladder is nondistended. There is mucosal thickening circumferentially of the gallbladder. Few intraluminal stones. There is a 5 mm polyp in the gallbladder. No free fluid. Negative Victor's sign. Acute cholecystitis is considered unlikely. No biliary dilatation. Heterogeneous echotexture of the liver, nonspecific but can be seen in the setting of hepatocellular dysfunction. Splenomegaly measuring 15 cm. Radiologist: Chico Melo MD Study ready at 23:45 and initial results transmitted at 23:51 Last Vital Signs Date Time Temp Pulse Resp B/P (MAP) Pulse Ox O2 Delivery O2 Flow Rate FiO2 05/12/19 22:15 98.1 92 18 139/89 98 Room Air Disposition: ADMITTED INPATIENT Condition: Stable Referrals: [facility],REFERRING (PCP) Robles Larsen MD May 13, 2019 00:20
[2019-05-13] MEDS ORDERED: Piperacillin/Tazobactam 3.375 GM in NS 110 ML IVPB ONE (01:15)
[2019-05-13 01:18] LABS: APPEARANCE,URINE CLEAR; BILIRUBIN, URINE NEGATIVE (NEGATIVE); GLUCOSE, URINE (UA) NEGATIVE (NEGATIVE); KETONES,URINE NEGATIVE (NEGATIVE); LEUKOCYTE ESTERASE ,URINE 1+ (NEGATIVE); NITRITE,URINE NEGATIVE (NEGATIVE); PH,URINE 8 (4.5-8.0); PROTEIN,URINE 3+ (NEGATIVE); UROBILINOGEN,URINE 1 MG/DL (0.0-1.0)
[2019-05-13] MEDS ORDERED: Zosyn 3.375gm inj ONE (01:22)
[2019-05-13] MEDS ORDERED: IBUPROFEN200 M2 ORAL (02:04)
--- NOTE | 2019-05-13 02:46 | NUR ---
NURSE NOTES: Admitted a 28 year old male, alert and oriented x4, with complaint of pain 05/29. Patient claimed that he's taking pantoprazole 40mg in AM and Ibuprofen 200mg at night when needed. Instructed the use of call light. Oriented to room. Call light and needs in reach. Bed in lowest position and lock engaged. Called Dr. Helms for admission orders. Waiting for call back.
--- NOTE | 2019-05-13 02:51 | NUR ---
HAND-OFF: Report given to PHILIP Roman.
--- NOTE | 2019-05-13 03:02 | NUR ---
NURSE NOTES: RECEIVED PATIENT IN BED, ASLEEP. NO S/S DISTRESS NOTED. BED IN LOWEST POSITION, CALL LIGHT WITHIN REACH. CALLED A SECOND TIME AND LEFT MESSAGE FOR DR. MORRIS REGARDING ADMISSION ORDERS, AWAITING RESPONSE.
[2019-05-13 03:26] LABS: COLOR,URINE YELLOW
--- NOTE | 2019-05-13 03:55 | NUR ---
NURSE NOTES: CALLED DR. MORRIS FOR THE THIRD TIME AND LEFT MESSAGE REGARDING ADMISSION ORDERS, AWAITING RESPONSE. Addendum: 05/13/19 at 0502 by TORI HARE RN RN STILL WAITING SMALL MACHINE BINDERY OPERATOR FROM DR. MORRIS. NURSING GASOLINE FINISHER AWARE. CHARGE NURSE AWARE.
--- NOTE | 2019-05-13 04:26 | NUR ---
ED Nurse Note: Patient was admited to [facility] due to cholecystitis. AAO x4, VSS at this time, skin is warm to touch. Patient was transfered with [employer].Spontaneously running, via gurney, with al belongings.
--- NOTE | 2019-05-13 06:34 | NUR ---
NURSE NOTES: CALLED AND LEFT MESSAGE FOR DR. MORRIS (4TH ATTEMPT) REGARDING ADMISSION ORDERS, AWAITING RESPONSE.
--- NOTE | 2019-05-13 07:07 | NUR ---
HAND-OFF: Report given to MATILDE PANDEY RN. ENDORSED TO AM NURSE TO FOLLOW UP REGARDING ADMISSION ORDERS.
[2019-05-13] MEDS ORDERED: HYDROcodone/Acetamin 5/325 tab ORAL PRN (07:45)
[2019-05-13] MEDS ORDERED: Morphine Sulfate 2mg/ml Inj(IV/IM USE ONLY) IVP PRN (07:45)
[2019-05-13] MEDS: D5 1/2NS w/KCl 20mEq 1,000 ML IV SCH ×3 (08:52→23:45)
[2019-05-13] MEDS ORDERED: Piperacillin/Tazobactam 3.375 GM in NS 110 ML IVPB SCH ×2 (09:00→12:00)
[2019-05-13 10:20] LABS: BLOOD UREA NITROGEN 7 mg/dL (7-18); CREATININE 0.7 MG/DL (0.55-1.30)
--- NOTE | 2019-05-13 11:17 | Consultation ---
History of Present Illness General Date patient seen: May 13, 2019 Chief Complaint: Abdominal Pain Present Illness HPI 28-year-old, with past medical history significant for alcoholism, esophageal varices, status post banding, presented to the hospital complaining about abdominal pain associated with nausea, vomiting. He was recently admitted to ICU with a hemoglobin of 3. He was banded and transfused and eventually discharged. Allergies: Coded Allergies: No Known Allergies (Unverified , 04/26/18) Medication History Scheduled No Known Medications* (NKM - No Known Medications*), 0 ., (Reported) Pantoprazole* (Pantoprazole*), 40 MG ORAL DAILY Scheduled PRN Ibuprofen (Ibuprofen), 200 MG ORAL BEDTIME PRN for prn, (Reported) Patient History Healthcare decision maker Resuscitation status Advanced Directive on File Past Medical/Surgical History Past Medical/Surgical History: (1) Alcoholic cirrhosis (2) Esophageal varices (3) Abnormal LFTs (liver function tests) Review of Systems All Other Systems: negative except mentioned in HPI Physical Exam General Appearance: WD/WN Lines, tubes and drains: peripheral HEENT: normocephalic, atraumatic Neck: non-tender, normal alignment Respiratory/Chest: chest wall non-tender, lungs clear Cardiovascular/Chest: normal rate Abdomen: non tender Genitourinary/Rectal: normal genital exam Extremities: normal range of motion Last 24 Hour Vital Signs Date Time Temp Pulse Resp B/P (MAP) Pulse Ox O2 Delivery O2 Flow Rate FiO2 05/13/19 09:00 Room Air 05/13/19 08:18 99.0 69 18 145/64 (91) 97 05/13/19 04:55 98.6 76 18 108/60 (76) 99 05/13/19 02:07 Room Air 05/13/19 01:50 98.1 89 16 139/89 98 Room Air 05/13/19 01:50 98.1 89 16 139/89 98 Room Air 05/13/19 00:15 98.1 89 16 139/89 98 Room Air 05/12/19 22:15 98.1 92 18 139/89 98 Room Air 05/12/19 22:15 125 18 Room Air 05/12/19 21:59 98.1 125 18 139/89 (106) 98 Room Air Laboratory Tests Test 05/12/19 22:11 05/13/19 01:11 05/13/19 09:50 White Blood Count 7.6 K/UL (4.8-10.8) Red Blood Count 3.74 M/UL (4.70-6.10) L Hemoglobin 9.1 G/DL (14.2-18.0) L Hematocrit 29.3 % (42.0-52.0) L Mean Corpuscular Volume 78 FL (80-99) L Mean Corpuscular Hemoglobin 24.5 PG (27.0-31.0) L Mean Corpuscular Hemoglobin Concent 31.2 G/DL (32.0-36.0) L Red Cell Distribution Width 17.8 % (11.6-14.8) H Platelet Count 180 K/UL (150-450) Mean Platelet Volume 5.2 FL (6.5-10.1) L Neutrophils (%) (Auto) 82.6 % (45.0-75.0) H Lymphocytes (%) (Auto) 8.6 % (20.0-45.0) L Monocytes (%) (Auto) 7.2 % (1.0-10.0) Eosinophils (%) (Auto) 0.0 % (0.0-3.0) Basophils (%) (Auto) 1.6 % (0.0-2.0) Prothrombin Time 11.9 SEC (9.30-11.50) H Prothromb Time International Ratio 1.1 (0.9-1.1) Activated Partial Thromboplast Time 27 SEC (23-33) Sodium Level 141 MMOL/L (136-145) Potassium Level 3.3 MMOL/L (3.5-5.1) L Chloride Level 103 MMOL/L (98-107) Carbon Dioxide Level 22 MMOL/L (21-32) Anion Gap 16 mmol/L (5-15) H Blood Urea Nitrogen 4 mg/dL (7-18) L 7 mg/dL (7-18) Creatinine 0.8 MG/DL (0.55-1.30) 0.7 MG/DL (0.55-1.30) Estimat Glomerular Filtration Rate > 60 mL/min (>60) > 60 mL/min (>60) Glucose Level 158 MG/DL (74-106) H Calcium Level 9.3 MG/DL (8.5-10.1) Total Bilirubin 2.9 MG/DL (0.2-1.0) H Direct Bilirubin 1.3 MG/DL (0.0-0.3) H Aspartate Amino Transf (AST/SGOT) 59 U/L (15-37) H Alanine Aminotransferase (ALT/SGPT) 32 U/L (12-78) Alkaline Phosphatase 229 U/L (46-116) H Total Protein 8.0 G/DL (6.4-8.2) Albumin 4.2 G/DL (3.4-5.0) Globulin 3.8 g/dL Albumin/Globulin Ratio 1.1 (1.0-2.7) Lipase 146 U/L (73-393) Urine Color Yellow Urine Appearance Clear Urine pH 8 (4.5-8.0) Urine Specific [place] 1.010 (1.005-1.035) Urine Protein 3+ (NEGATIVE) H Urine Glucose (UA) Negative (NEGATIVE) Urine Ketones Negative (NEGATIVE) Urine Blood Negative (NEGATIVE) Urine Nitrite Negative (NEGATIVE) Urine Bilirubin Negative (NEGATIVE) Urine Urobilinogen 1 MG/DL (0.0-1.0) H Urine Leukocyte Esterase 1+ (NEGATIVE) H Urine RBC 0-2 /HPF (0 - 0) H Urine WBC 0-2 /HPF (0 - 0) Urine Squamous Epithelial Cells None /LPF (NONE/OCC) Urine Bacteria None /HPF (NONE) Height (Feet): 5 Height (Inches): 7.00 Weight (Pounds): 170 Medications Current Medications Medications (Trade) Dose Ordered Sig/Solis Route PRN Reason Start Time Stop Time Status Last Admin Dose Admin Acetaminophen (Tylenol) 650 mg Q6H PRN ORAL Mild Pain/Temp > 100.5 05/13/19 07:45 06/12/19 07:44 Dextrose/ Electrolytes 1,000 ml @ 75 mls/hr [id number] IV 05/13/19 09:00 06/12/19 08:59 05/13/19 08:52 Heparin Sodium (Porcine) (Heparin 5000 units/ml) 5,000 units EVERY 8 HOURS SUBQ 05/13/19 14:00 06/12/19 13:59 Ondansetron HCl (Zofran) 4 mg Q6H PRN IVP Nausea & Vomiting 05/13/19 07:45 06/12/19 07:44 Assessment/Plan Problem List: (1) Intractable nausea and vomiting ICD Codes: R11.2 - Nausea with vomiting, unspecified SNOMED: 485963393 (2) Abdominal pain ICD Codes: R10.9 - Unspecified abdominal pain SNOMED: 47526031 (3) Esophageal varices ICD Codes: I85.00 - Esophageal varices without bleeding SNOMED: 18864826 (4) Alcoholic cirrhosis ICD Codes: K70.30 - Alcoholic cirrhosis of liver without ascites SNOMED: 064956476 Assessment/Plan: NPO IV fluids check electrolytes check amylase and lipase Matilde Chery MD May 13, 2019 11:17
[2019-05-13] MEDS: Heparin 5000 units/ml inj SUBQ SCH ×2 (14:20→21:01)
--- NOTE | 2019-05-13 15:53 | NUR ---
CASE MANAGEMENT:REVIEW 28 YR OLD MALE PRESENTED TO ER CC: ABDOMINAL AND BACK PAIN WITH NAUSEA AND VOMITING X3 DAYS SI: CHOLECYSTITIS 98.0 125 18 139/89 98% ON RA H/H-9.1/29.3 K-3.3 TBILI+2.9 DBILI+1.3 IS: IV ZOFRAN 1L NS BOLUS ABD US : TO MED/SURG [facility]
--- NOTE | 2019-05-13 16:26 | NUR ---
*-* INSURANCE *-* ALL CLINICALS AND REVIEWS HAVE BEEN FAXED TO: [employer] NO STUNT WOMAN ASSIGNED AT THIS TIME. PLEASE FAX THE REVIEW/CLINICAL P- [phone] F- [phone] - REVIEW/CLINICAL
--- NOTE | 2019-05-13 17:57 | History & Physical ---
History and Physical History & Physicial Dictated for Int Med-Dr Helms no. [id number]. Lee Rangel MD May 13, 2019 17:57
--- NOTE | 2019-05-13 19:18 | NUR ---
HAND-OFF: Report given to Be PARKS.
--- NOTE | 2019-05-13 19:30 | NUR ---
NURSE NOTES: Pt lying in bed w/bed in lowest position and call light within reach. Pt A&Ox4, VSS, and in no apparent distress at this time. IV site intact/asymptomatic w/IVF infusing and skin intact. Will continue to monitor.
[2019-05-14] VITALS: BP 115/74
--- NOTE | 2019-05-14 02:15 | History and Physical Report ---
DATE OF ADMISSION: 05/13/2019 CHIEF COMPLAINT: The patient is a 28-year-old male, who presents with a chief complaint of abdominal pain, nausea, and vomiting. HISTORY OF PRESENT ILLNESS: This began 3 days prior to admission. The patient began to experience right upper quadrant pain. This was associated with nausea and vomiting. The patient states the pain radiates to the back. Pain is sharp. The patient was admitted to [facility] on 05/01/2019. The patient was admitted for severe anemia secondary to GI bleed secondary to esophageal varices. Please see history and physical and discharge summary dictated at that time. The patient presented to [facility] emergency room. The patient was found to have acute cholecystitis by ultrasound. The patient is admitted with acute cholecystitis. REVIEW OF SYSTEMS: CONSTITUTIONAL: The patient denies weight loss or weight gain. The patient denies fevers or chills. HEENT: The patient denies ear or throat pain. The patient denies headache. CARDIOVASCULAR: The patient denies palpitations or chest pain. CHEST: The patient denies wheeze or shortness of breath. ABDOMEN: The patient complains of right upper quadrant pain as above. The patient complains of nausea and vomiting. The patient denies constipation or diarrhea. GENITOURINARY: The patient denies dysuria or increased frequency of urination. NEUROMUSCULAR: The patient denies seizures or generalized weakness. PAST MEDICAL HISTORY: Significant for: 1. Alcoholic liver disease. 2. History of GI bleed secondary to esophageal varices. 3. Esophageal varices. PAST SURGICAL HISTORY: Significant for esophageal varices banding. CURRENT MEDICATIONS: 1. Ibuprofen 200 mg p.o. at bedtime p.r.n. 2. Protonix 40 mg p.o. daily. ALLERGIES: No known drug allergies. SOCIAL HISTORY: The patient is single. Lives with his parents. The patient denies tobacco use. The patient quit drinking alcohol in early April 2019. PHYSICAL EXAMINATION: VITAL SIGNS: Temperature 98.6, respirations 18, pulse 72, and blood pressure 108/60. GENERAL: The patient is a well-developed and well-nourished male, in no apparent distress. HEENT: Eyes, pupils are equal and responsive to light and accommodation. Extraocular movements are intact. NECK: Supple without lymphadenopathy. CHEST: Lungs are clear to auscultation bilaterally without wheeze or rales. CARDIOVASCULAR: Regular rhythm and rate. S1, S2 are normal without murmurs, rubs, or gallops. ABDOMEN: Soft and nondistended with decreased bowel sounds. There is tenderness to palpation in the right upper quadrant. There is no rebound or guarding. EXTREMITIES: Negative for clubbing, cyanosis, or edema. RECTAL/GENITAL: Not performed. NEUROLOGIC: Cranial nerves II through XII are grossly intact without focal deficits. Motor strength is 5/5 bilaterally. Deep tendon reflexes are 2+ plantar. LABORATORY STUDIES: WBC 7.6, hemoglobin 9.1, hematocrit 29.3, and platelets 108,000. Sodium 141, potassium 3.3, chloride 103, CO2 22, BUN 4, creatinine 0.8, and glucose 158. Total bilirubin elevated at 2.9. Direct bilirubin elevated at 1.3. AST elevated at 59 and alkaline phosphatase elevated at 229. An abdominal ultrasound was reported as cholelithiasis with gallbladder wall thickening consistent with acute cholecystitis. ASSESSMENT: This is a 28-year-old male. 1. Right upper quadrant pain. 2. Nausea and vomiting. 3. Acute cholecystitis. 4. Alcohol esophageal varices. TREATMENT: 1. Right upper quadrant pain. An ultrasound of the abdomen revealed acute cholecystitis. A General Surgery consultation has been obtained with Dr. Ochoa. We will follow recommendations of Surgery. 2. Nausea with vomiting. This is probably secondary to acute cholecystitis as above. 3. Acute cholecystitis as above. A General Surgery consultation has been obtained with Dr. Ochoa. A Gastroenterology consultation has been obtained with Dr. Luis Armando Victoria. An MRCP may be performed. We will follow recommendation of Gastroenterology and Surgery. 4. Alcohol esophageal varices. The patient is status post banding. Lee Rangel M.D. DR: LEONCIO JOB#: [id number] CC:
[2019-05-14 04:00] VITALS: BP 89/59
[2019-05-14] MEDS: Heparin 5000 units/ml inj SUBQ SCH ×2 (05:54→13:57)
[2019-05-14 06:06] LABS: BASOPHILS % (AUTO) 1.5 % (0.0-2.0); EOSINOPHILS % (AUTO) 1.1 % (0.0-3.0); HEMATOCRIT 29.4 % (42.0-52.0); HEMOGLOBIN 8.8 G/DL (14.2-18.0); MEAN CORPUSCULAR VOLUME 80 FL (80-99); MONOCYTES % (AUTO) 10.4 % (1.0-10.0); NEUTROPHILS % (AUTO) 58.1 % (45.0-75.0); PLATELET COUNT 146 K/UL (150-450); RED BLOOD COUNT 3.67 M/UL (4.70-6.10); RED CELL DISTRIBUTION WIDTH 18.9 % (11.6-14.8); WHITE BLOOD COUNT 5.4 K/UL (4.8-10.8)
[2019-05-14 06:31] LABS: ALANINE AMINOTRANSFERASE 26 U/L (12-78); ALBUMIN 3.3 G/DL (3.4-5.0); ALBUMIN/GLOBULIN RATIO 0.9 (1.0-2.7); ALKALINE PHOSPHATASE 193 U/L (46-116); AMYLASE 70 U/L (25-115); ANION GAP 10 mmol/L (5-15); ASPARTATE AMINO TRANSFERASE 46 U/L (15-37); BILIRUBIN,TOTAL 2.8 MG/DL (0.2-1.0); BLOOD UREA NITROGEN 7 mg/dL (7-18); CALCIUM 8.5 MG/DL (8.5-10.1); CARBON DIOXIDE 25 MMOL/L (21-32); CHLORIDE 104 MMOL/L (98-107); CREATININE 0.8 MG/DL (0.55-1.30); PHOSPHORUS 4.3 MG/DL (2.5-4.9); POTASSIUM 3.4 MMOL/L (3.5-5.1); SODIUM 139 MMOL/L (136-145)
[2019-05-14 06:36] LABS: BILIRUBIN,DIRECT 1.2 MG/DL (0.0-0.3)
--- NOTE | 2019-05-14 07:15 | NUR ---
HAND-OFF: Report given to France Shankar RN. Endorsed to please f/u w/ regarding abnormal labs.
--- NOTE | 2019-05-14 07:46 | NUR ---
NURSE NOTES: Received report from PHILIP Agarwal. Rounding done with outgoing nurse. Pt a/o x 4, in bed. No respiratory distress noted. Denies any pain at this time. IV is patent. Bed in lowest position, call light within reach. Will continue to monitor.
[2019-05-14 08:00] VITALS: BP 115/64
--- NOTE | 2019-05-14 10:28 | NUR ---
CASE MANAGEMENT:REVIEW 05.14.19 SI: ALCOHOLIC LIVER DISEASE ESOPHAGEAL VARICES 98.7 92 18 115/64 99% ON RA H/H-8.8/29.4 PLT-146 MAG-1.6 TBILI+2.8 DBILI+1.2 IS: IVF@75/HR HEPARIN SQ Q8HRS : MED/SURG STATUS 3 EAST PLAN; HIDA SCAN SCHEDULED FOR TODAY
--- NOTE | 2019-05-14 10:57 | NUR ---
*-* INSURANCE *-* UPDATED CLINICALS AND REVIEWS HAVE BEEN FAXED TO: [employer] NO WHITEWASHER ASSIGNED AT THIS TIME. PLEASE FAX THE REVIEW/CLINICAL P- [phone] F- [phone] - REVIEW/CLINICAL
--- NOTE | 2019-05-14 10:58 | GI Initial Consult Note ---
History of Present Illness General Date patient seen: May 14, 2019 Time patient seen: 10:51 Reason for Hospitalization: Abdominal Pain Referring physician: YOSELIN MORRIS Reason for Consultation: ABDOMINAL PAIN Present Illness HPI 28-year-old male presents with right upper quadrant pain x3 days, endorses nausea vomiting, no aggravating or relieving factors, he endorses a sharp constant right upper quadrant pain that radiates to his right upper back, patient presents for evaluation GI consulted for abdominal pain, nausea and vomiting. Patient is known to us with history of cirrhosis status post EGD x2 with banding including history of esophageal varices and portal gastropathy. According to the patient, he is no longer drinking any alcohol. He presents today with complaint of severe right upper quadrant pain. He states that he had some food which caused him to have severe pain with associated nausea and vomiting. Patient denied any coffee- ground or hematemesis. His most recent endoscopy was approximately 1 month ago in which esophageal varices grade 1 was seen and no banding was performed at that time. Presents today with hemoglobin 8.8, AST of 46, total bilirubin of 2.8, alk phosphatase of 193. Most recent abdominal ultrasound is suggested of possible cholecystitis. Recently discharged from the hospital. Discharge diagnoses: Acute GI bleed due to esophageal varices -status post variceal banding Severe anemia status post multiple transfusion Single seizure event, likely due to severe anemia and hypoperfusion - temporarily treated with Keppra Alcohol dependence Iron deficiency anemia Elevated LFTs Portal hypertensive gastropathy Status post EGD Alcoholic liver cirrhosis Hypokalemia Leukocytosis Home Meds Active Scripts Pantoprazole* (PANTOPRAZOLE*) 40 Mg Tablet., 40 MG ORAL DAILY for 30 Days, TAB Prov:Matilde Chery MD 05/04/19 Reported Medications Ibuprofen (IBUPROFEN) 200 Mg Capsule, 200 MG ORAL BEDTIME PRN for prn, #30 CAP 0 Refills 05/13/19 No Known Medications* (NKM - No Known Medications*) ., 0 ., 0 Refills 05/01/19 Med list reviewed/reconciled: Yes Allergies: Coded Allergies: No Known Allergies (Unverified , 04/26/18) Patient History Social History: Reports: alcohol use - history of Review of Systems All Other Systems: negative except mentioned in HPI Physical Exam Vital Signs Date Time Temp Pulse Resp B/P (MAP) Pulse Ox O2 Delivery O2 Flow Rate FiO2 05/12/19 21:59 98.1 125 18 139/89 (106) 98 Room Air Sp02 EP Interpretation: reviewed, normal Labs Laboratory Tests Test 05/14/19 05:30 White Blood Count 5.4 K/UL (4.8-10.8) Red Blood Count 3.67 M/UL (4.70-6.10) L Hemoglobin 8.8 G/DL (14.2-18.0) L Hematocrit 29.4 % (42.0-52.0) L Mean Corpuscular Volume 80 FL (80-99) Mean Corpuscular Hemoglobin 24.1 PG (27.0-31.0) L Mean Corpuscular Hemoglobin Concent 30.0 G/DL (32.0-36.0) L Red Cell Distribution Width 18.9 % (11.6-14.8) H Platelet Count 146 K/UL (150-450) L Mean Platelet Volume 5.4 FL (6.5-10.1) L Neutrophils (%) (Auto) 58.1 % (45.0-75.0) Lymphocytes (%) (Auto) 29.0 % (20.0-45.0) Monocytes (%) (Auto) 10.4 % (1.0-10.0) H Eosinophils (%) (Auto) 1.1 % (0.0-3.0) Basophils (%) (Auto) 1.5 % (0.0-2.0) Erythrocyte Sedimentation Rate 32 MM/HR (0-15) H Sodium Level 139 MMOL/L (136-145) Potassium Level 3.4 MMOL/L (3.5-5.1) L Chloride Level 104 MMOL/L (98-107) Carbon Dioxide Level 25 MMOL/L (21-32) Anion Gap 10 mmol/L (5-15) Blood Urea Nitrogen 7 mg/dL (7-18) Creatinine 0.8 MG/DL (0.55-1.30) Estimat Glomerular Filtration Rate > 60 mL/min (>60) Glucose Level 110 MG/DL (74-106) H Calcium Level 8.5 MG/DL (8.5-10.1) Phosphorus Level 4.3 MG/DL (2.5-4.9) Magnesium Level 1.6 MG/DL (1.8-2.4) L Total Bilirubin 2.8 MG/DL (0.2-1.0) H Direct Bilirubin 1.2 MG/DL (0.0-0.3) H Aspartate Amino Transf (AST/SGOT) 46 U/L (15-37) H Alanine Aminotransferase (ALT/SGPT) 26 U/L (12-78) Alkaline Phosphatase 193 U/L (46-116) H C-Reactive Protein, Quantitative < 0.4 mg/dL (0.00-0.90) Total Protein 6.8 G/DL (6.4-8.2) Albumin 3.3 G/DL (3.4-5.0) L Globulin 3.5 g/dL Albumin/Globulin Ratio 0.9 (1.0-2.7) L Amylase Level 70 U/L (25-115) Lipase 125 U/L (73-393) General Appearance: well appearing, no apparent distress, alert Head: normocephalic EENT: PERRL/EOMI, normal ENT inspection Neck: supple Respiratory: normal breath sounds, no respiratory distress Cardiovascular: normal rate Gastrointestinal: normal inspection, non tender, soft, normal bowel sounds, non -distended Rectal: deferred Genitourinary: deferred Musculoskeletal: normal inspection, back normal Neurologic: normal inspection, alert, oriented x3, responsive Psychiatric: normal inspection, judgement/insight normal, memory normal Skin: normal inspection, normal color, no rash, warm/dry, palpation normal, well hydrated Lymphatic: normal inspection, no adenopathy Current Medications Current Medications Medications (Trade) Dose Ordered Sig/Solis Route PRN Reason Start Time Stop Time Status Last Admin Dose Admin Acetaminophen (Tylenol) 650 mg Q6H PRN ORAL Mild Pain/Temp > 100.5 05/13/19 07:45 06/12/19 07:44 Dextrose/ Electrolytes 1,000 ml @ 75 mls/hr [id number] IV 05/13/19 09:00 06/12/19 08:59 05/13/19 23:45 Heparin Sodium (Porcine) (Heparin 5000 units/ml) 5,000 units EVERY 8 HOURS SUBQ 05/13/19 14:00 06/12/19 13:59 05/14/19 05:54 Morphine Sulfate (Morphine Sulfate) 2 mg ONCE IVP 05/14/19 13:00 05/14/19 14:00 Ondansetron HCl (Zofran) 4 mg Q6H PRN IVP Nausea & Vomiting 05/13/19 07:45 06/12/19 07:44 GI: Plan Problems: (1) Alcoholic cirrhosis (2) Esophageal varices (3) Symptomatic cholelithiasis (4) Cholecystitis (5) Abdominal pain (6) Intractable nausea and vomiting Plan Abdominal ultrasound reviewed suggestive of cholecystitis History of cirrhosis with esophageal varices History of recent endoscopy Obtain HIDA scan Okay to advance diet after imaging study Obtain surgical consultation Pain management Zofran as needed anemia work up OB stool r/o GI bleed monitor H&H, prn transfusions bowel regimen ppi fu labs Discussed with Dr. Victoria. Thank you for this patient referral, we will follow. The patient was seen and examined at bedside and all new and available data was reviewed in the patients chart. I agree with the above findings, impression and plan. (Patient seen earlier today. Signature stamp does not reflect patient encounter time.). - MD Chikis MartinezTuba City Regional Health Care CorporationTrae TERRITORY SALES CONSULTANT May 14, 2019 10:58
[2019-05-14 12:00] VITALS: BP 115/68
--- NOTE | 2019-05-14 12:15 | NUR ---
NURSE NOTES: Pt off the unit for HIDA Scan in stable condition.
--- NOTE | 2019-05-14 12:33 | Consultation ---
History of Present Illness General Date patient seen: May 14, 2019 Reason for Hospitalization: Abdominal Pain Present Illness HPI This is a 28-year-old male who presented to [facility] complaining of right upper quadrant abdominal pain for 3 days. Patient states he was doing well but had a meal approximately 3 days ago in the morning and started to develop pain in the right upper quadrant thereafter. Associated nausea. Pain described as cramping 6 out of 10 right upper quadrant pain. Came to [facility] [place] [place] ED for evaluation at which time was noted to have a abnormal LFTs. Ultrasound identified possible cholecystitis. Surgery called to evaluate. Patient seen, patient evaluated, chart reviewed. Patient with history of EtOH and liver dysfunction per report. Furthermore patient states that his pain is resolved since admission. Allergies: Coded Allergies: No Known Allergies (Unverified , 04/26/18) Medication History Scheduled No Known Medications* (NKM - No Known Medications*), 0 ., (Reported) Pantoprazole* (Pantoprazole*), 40 MG ORAL DAILY Scheduled PRN Ibuprofen (Ibuprofen), 200 MG ORAL BEDTIME PRN for prn, (Reported) Patient History History Provided By: Patient, Medical Record, PMD Healthcare decision maker Resuscitation status Advanced Directive on File Past Medical/Surgical History Past Medical/Surgical History: (1) Intractable nausea and vomiting (2) Alcohol dependence (3) Acute delirium (4) Abdominal pain (5) Anemia (6) GI (gastrointestinal bleed) (7) Hemorrhagic shock (8) Severe anemia (9) Cholecystitis (10) Symptomatic cholelithiasis (11) Esophageal varices (12) Alcoholic cirrhosis Review of Systems Review of Symptoms General ROS: no weight loss or fever Psychological ROS: no depression or mood changes, no memory loss Ophthalmic ROS: no visual changes or eye irritation ENT ROS: no nasal congestion, hearing loss, dizziness Allergy and Immunology ROS: no allergic symptoms or urticaria Hematological and Lymphatic ROS: no swollen glands, unusual bleeding or bruising Endocrine ROS: no polyuria, polydipsia, weight changes, temperature intolerance Respiratory ROS: no cough, shortness of breath, or wheezing Cardiovascular ROS: no chest pain or dyspnea on exertion Gastrointestinal ROS: denies abdominal pain, no bright red blood in stool. Musculoskeletal ROS: no myalgias or arthralgias Neurological ROS: no TIA or stroke symptoms Dermatological ROS: no new or changing skin lesions, rashes or pruritis Physical Exam Physical Exam General appearance: alert, cooperative, no distress, appears stated age Head: Normocephalic, without obvious abnormality, atraumatic Eyes: conjunctivae/corneas clear. PERRL, EOM's intact. Fundi benign Throat: Lips, mucosa, and tongue normal. Teeth and gums normal Neck: supple, symmetrical, trachea midline, no adenopathy, thyroid: not enlarged, symmetric, no tenderness/mass/nodules, no carotid bruit and no JVD Lungs: clear to auscultation bilaterally Heart: regular rate and rhythm, S1, S2 normal, no murmur, click, rub or gallop Abdomen: soft, non-tender. Bowel sounds normal. No masses, no organomegaly Extremities: extremities normal, atraumatic, no cyanosis or edema Pulses: 2+ and symmetric Skin: Skin color, texture, turgor normal. No rashes or lesions Neurologic: Grossly normal Last 24 Hour Vital Signs Date Time Temp Pulse Resp B/P (MAP) Pulse Ox O2 Delivery O2 Flow Rate FiO2 05/14/19 08:31 Room Air 05/14/19 08:00 98.7 92 18 115/64 (81) 99 05/14/19 04:00 99.4 64 18 89/59 (69) 99 05/14/19 00:00 98.7 64 18 115/74 (88) 99 05/13/19 21:00 Room Air 05/13/19 20:00 98.8 65 18 117/69 (85) 97 05/13/19 16:00 98.9 70 18 119/67 (84) 98 Intake and Output 05/13/19 05/14/19 19:00 07:00 Intake Total 311 ml 1136 ml Output Total 800 ml Balance 311 ml 336 ml Intake Oral 236 ml 236 ml IV Total 75 ml 900 ml Output Urine Total 800 ml Laboratory Tests Test 05/14/19 05:30 White Blood Count 5.4 K/UL (4.8-10.8) Red Blood Count 3.67 M/UL (4.70-6.10) L Hemoglobin 8.8 G/DL (14.2-18.0) L Hematocrit 29.4 % (42.0-52.0) L Mean Corpuscular Volume 80 FL (80-99) Mean Corpuscular Hemoglobin 24.1 PG (27.0-31.0) L Mean Corpuscular Hemoglobin Concent 30.0 G/DL (32.0-36.0) L Red Cell Distribution Width 18.9 % (11.6-14.8) H Platelet Count 146 K/UL (150-450) L Mean Platelet Volume 5.4 FL (6.5-10.1) L Neutrophils (%) (Auto) 58.1 % (45.0-75.0) Lymphocytes (%) (Auto) 29.0 % (20.0-45.0) Monocytes (%) (Auto) 10.4 % (1.0-10.0) H Eosinophils (%) (Auto) 1.1 % (0.0-3.0) Basophils (%) (Auto) 1.5 % (0.0-2.0) Erythrocyte Sedimentation Rate 32 MM/HR (0-15) H Sodium Level 139 MMOL/L (136-145) Potassium Level 3.4 MMOL/L (3.5-5.1) L Chloride Level 104 MMOL/L (98-107) Carbon Dioxide Level 25 MMOL/L (21-32) Anion Gap 10 mmol/L (5-15) Blood Urea Nitrogen 7 mg/dL (7-18) Creatinine 0.8 MG/DL (0.55-1.30) Estimat Glomerular Filtration Rate > 60 mL/min (>60) Glucose Level 110 MG/DL (74-106) H Calcium Level 8.5 MG/DL (8.5-10.1) Phosphorus Level 4.3 MG/DL (2.5-4.9) Magnesium Level 1.6 MG/DL (1.8-2.4) L Total Bilirubin 2.8 MG/DL (0.2-1.0) H Direct Bilirubin 1.2 MG/DL (0.0-0.3) H Aspartate Amino Transf (AST/SGOT) 46 U/L (15-37) H Alanine Aminotransferase (ALT/SGPT) 26 U/L (12-78) Alkaline Phosphatase 193 U/L (46-116) H C-Reactive Protein, Quantitative < 0.4 mg/dL (0.00-0.90) Total Protein 6.8 G/DL (6.4-8.2) Albumin 3.3 G/DL (3.4-5.0) L Globulin 3.5 g/dL Albumin/Globulin Ratio 0.9 (1.0-2.7) L Amylase Level 70 U/L (25-115) Lipase 125 U/L (73-393) Height (Feet): 5 Height (Inches): 7.00 Weight (Pounds): 170 Medications Current Medications Medications (Trade) Dose Ordered Sig/Solis Route PRN Reason Start Time Stop Time Status Last Admin Dose Admin Acetaminophen (Tylenol) 650 mg Q6H PRN ORAL Mild Pain/Temp > 100.5 05/13/19 07:45 06/12/19 07:44 Dextrose/ Electrolytes 1,000 ml @ 75 mls/hr [id number] IV 05/13/19 09:00 06/12/19 08:59 05/13/19 23:45 Heparin Sodium (Porcine) (Heparin 5000 units/ml) 5,000 units EVERY 8 HOURS SUBQ 05/13/19 14:00 06/12/19 13:59 05/14/19 05:54 Morphine Sulfate (Morphine Sulfate) 2 mg ONCE IVP 05/14/19 13:00 05/14/19 14:00 Ondansetron HCl (Zofran) 4 mg Q6H PRN IVP Nausea & Vomiting 05/13/19 07:45 06/12/19 07:44 Assessment/Plan Problem List: (1) Abdominal pain Assessment & Plan: This is a 28-year-old male with acute onset of right upper quadrant abdominal pain. Afebrile, hemodynamically stable, labs noted. No leukocytosis. Abnormal LFTs including elevated total bilirubin and bilirubin. Alk phos elevated. Mild elevation in AST and ALT. Had right upper quadrant pain on admission but now status is resolved. Currently no nausea vomiting fever or chills. Furthermore patient states he had breakfast and was without pain thereafter. No acute surgical intervention recommended at this time Okay for diet from surgical standpoint If tolerating diet and symptoms resolved okay to discharge with outpatient follow-up from surgical standpoint Thank you for allowing me to participate in patient's care ICD Codes: R10.9 - Unspecified abdominal pain SNOMED: [id number] (2) Cholecystitis ICD Codes: K81.9 - Cholecystitis, unspecified SNOMED: [id number] Gorge Ochoa May 14, 2019 12:33
[2019-05-14] MEDS ORDERED: Morphine Sulfate 2mg/ml Inj(IV/IM USE ONLY) IVP SCH (13:00)
--- NOTE | 2019-05-14 13:00 | NUR ---
NURSE NOTES: Dr. Chery came and notify that K+ 3.[address] Chery is aware, no new order.
[2019-05-14] MEDS ORDERED: ZOFRAN4 M1 ORAL (13:14)
--- NOTE | 2019-05-14 13:19 | Pulmonology Progress Note ---
Assessment/Plan Problems: (1) Intractable nausea and vomiting (2) Abdominal pain (3) Esophageal varices (4) Alcoholic cirrhosis Assessment/Plan tolerating diet dc home with Zoan Subjective ROS Limited/Unobtainable: No Interval Events: doing HIDA Allergies: Coded Allergies: No Known Allergies (Unverified , 04/26/18) Objective Last 24 Hour Vital Signs Date Time Temp Pulse Resp B/P (MAP) Pulse Ox O2 Delivery O2 Flow Rate FiO2 05/14/19 12:00 98.7 65 18 115/68 (84) 98 05/14/19 08:31 Room Air 05/14/19 08:00 98.7 92 18 115/64 (81) 99 05/14/19 04:00 99.4 64 18 89/59 (69) 99 05/14/19 00:00 98.7 64 18 115/74 (88) 99 05/13/19 21:00 Room Air 05/13/19 20:00 98.8 65 18 117/69 (85) 97 05/13/19 16:00 98.9 70 18 119/67 (84) 98 Intake and Output 05/13/19 05/14/19 19:00 07:00 Intake Total 311 ml 1136 ml Output Total 800 ml Balance 311 ml 336 ml Intake Oral 236 ml 236 ml IV Total 75 ml 900 ml Output Urine Total 800 ml Objective unchaged Laboratory Tests 05/14/19 05:30: White Blood Count 5.4, Red Blood Count 3.67L, Hemoglobin 8.8L, Hematocrit 29.4L , Mean Corpuscular Volume 80, Mean Corpuscular Hemoglobin 24.1L, Mean Corpuscular Hemoglobin Concent 30.0L, Red Cell Distribution Width 18.9H, Platelet Count 146L, Mean Platelet Volume 5.4L, Neutrophils (%) (Auto) 58.1, Lymphocytes (%) (Auto) 29.0, Monocytes (%) (Auto) 10.4H, Eosinophils (%) (Auto) 1.1, Basophils (%) (Auto) 1.5, Erythrocyte Sedimentation Rate 32H, Sodium Level 139, Potassium Level 3.4L, Chloride Level 104, Carbon Dioxide Level 25, Anion Gap 10, Blood Urea Nitrogen 7, Creatinine 0.8, Estimat Glomerular Filtration Rate > 60, Glucose Level 110H, Calcium Level 8.5, Phosphorus Level 4.3, Magnesium Level 1.6L, Total Bilirubin 2.8H, Direct Bilirubin 1.2H, Aspartate Amino Transf (AST/SGOT) 46H, Alanine Aminotransferase (ALT/SGPT) 26, Alkaline Phosphatase 193H, C-Reactive Protein, Quantitative < 0.4, Total Protein 6.8, Albumin 3.3L, Globulin 3.5, Albumin/Globulin Ratio 0.9L, Amylase Level 70, Lipase 125 Current Medications Medications (Trade) Dose Ordered Sig/Solis Route PRN Reason Start Time Stop Time Status Last Admin Dose Admin Acetaminophen (Tylenol) 650 mg Q6H PRN ORAL Mild Pain/Temp > 100.5 05/13/19 07:45 06/12/19 07:44 Dextrose/ Electrolytes 1,000 ml @ 75 mls/hr [id number] IV 05/13/19 09:00 06/12/19 08:59 05/13/19 23:45 Heparin Sodium (Porcine) (Heparin 5000 units/ml) 5,000 units EVERY 8 HOURS SUBQ 05/13/19 14:00 06/12/19 13:59 05/14/19 05:54 Morphine Sulfate (Morphine Sulfate) 2 mg ONCE IVP 05/14/19 13:00 05/14/19 14:00 Ondansetron HCl (Zofran) 4 mg Q6H PRN IVP Nausea & Vomiting 05/13/19 07:45 06/12/19 07:44 Matilde Chery MD May 14, 2019 13:19
--- NOTE | 2019-05-14 13:31 | NUR ---
HIDA scan complete.
--- NOTE | 2019-05-14 13:40 | NUR ---
NURSE NOTES: Pt came back to unit in stable condition.
[2019-05-14] MEDS: D5 1/2NS w/KCl 20mEq 1,000 ML IV SCH (13:57)
--- NOTE | 2019-05-14 15:05 | Diagnostic Imaging Report ---
Indications: Abdominal pain and gallstones Technique: IV administration 5.5 mCi 99 M technetium Choletec. Serial images obtained over the abdomen for one hour Comparison: None Findings: Prompt tracer uptake within the liver. Extrahepatic bile ducts are seen at 20 minutes. Excretion into the duodenum demonstrated at 31 minutes. Gallbladder visualized at 7 minutes. Impression: Negative. No evidence of acute cholecystitis or bile duct obstruction
[2019-05-14 16:00] VITALS: BP 114/73
--- NOTE | 2019-05-14 16:06 | Internal Med Progress Note ---
Subjective Physician Name Fracisco Helms Attending Physician Fracisco Helms MD Current Medications Medications (Trade) Dose Ordered Sig/Solis Route PRN Reason Start Time Stop Time Status Last Admin Dose Admin Acetaminophen (Tylenol) 650 mg Q6H PRN ORAL Mild Pain/Temp > 100.5 05/13/19 07:45 06/12/19 07:44 Dextrose/ Electrolytes 1,000 ml @ 75 mls/hr [id number] IV 05/13/19 09:00 06/12/19 08:59 05/14/19 13:57 Heparin Sodium (Porcine) (Heparin 5000 units/ml) 5,000 units EVERY 8 HOURS SUBQ 05/13/19 14:00 06/12/19 13:59 05/14/19 05:54 Ondansetron HCl (Zofran) 4 mg Q6H PRN IVP Nausea & Vomiting 05/13/19 07:45 06/12/19 07:44 Allergies: Coded Allergies: No Known Allergies (Unverified , 04/26/18) Subjective awake, alert, responsive. No abdominal pain or N/V, feeding good Objective Last Vital Signs Date Time Temp Pulse Resp B/P (MAP) Pulse Ox O2 Delivery O2 Flow Rate FiO2 05/14/19 12:00 98.7 65 18 115/68 (84) 98 05/14/19 08:31 Room Air Laboratory Tests Test 05/14/19 05:30 White Blood Count 5.4 K/UL (4.8-10.8) Red Blood Count 3.67 M/UL (4.70-6.10) L Hemoglobin 8.8 G/DL (14.2-18.0) L Hematocrit 29.4 % (42.0-52.0) L Mean Corpuscular Volume 80 FL (80-99) Mean Corpuscular Hemoglobin 24.1 PG (27.0-31.0) L Mean Corpuscular Hemoglobin Concent 30.0 G/DL (32.0-36.0) L Red Cell Distribution Width 18.9 % (11.6-14.8) H Platelet Count 146 K/UL (150-450) L Mean Platelet Volume 5.4 FL (6.5-10.1) L Neutrophils (%) (Auto) 58.1 % (45.0-75.0) Lymphocytes (%) (Auto) 29.0 % (20.0-45.0) Monocytes (%) (Auto) 10.4 % (1.0-10.0) H Eosinophils (%) (Auto) 1.1 % (0.0-3.0) Basophils (%) (Auto) 1.5 % (0.0-2.0) Erythrocyte Sedimentation Rate 32 MM/HR (0-15) H Sodium Level 139 MMOL/L (136-145) Potassium Level 3.4 MMOL/L (3.5-5.1) L Chloride Level 104 MMOL/L (98-107) Carbon Dioxide Level 25 MMOL/L (21-32) Anion Gap 10 mmol/L (5-15) Blood Urea Nitrogen 7 mg/dL (7-18) Creatinine 0.8 MG/DL (0.55-1.30) Estimat Glomerular Filtration Rate > 60 mL/min (>60) Glucose Level 110 MG/DL (74-106) H Calcium Level 8.5 MG/DL (8.5-10.1) Phosphorus Level 4.3 MG/DL (2.5-4.9) Magnesium Level 1.6 MG/DL (1.8-2.4) L Total Bilirubin 2.8 MG/DL (0.2-1.0) H Direct Bilirubin 1.2 MG/DL (0.0-0.3) H Aspartate Amino Transf (AST/SGOT) 46 U/L (15-37) H Alanine Aminotransferase (ALT/SGPT) 26 U/L (12-78) Alkaline Phosphatase 193 U/L (46-116) H C-Reactive Protein, Quantitative < 0.4 mg/dL (0.00-0.90) Total Protein 6.8 G/DL (6.4-8.2) Albumin 3.3 G/DL (3.4-5.0) L Globulin 3.5 g/dL Albumin/Globulin Ratio 0.9 (1.0-2.7) L Amylase Level 70 U/L (25-115) Lipase 125 U/L (73-393) Intake and Output 05/13/19 05/14/19 19:00 07:00 Intake Total 311 ml 1136 ml Output Total 800 ml Balance 311 ml 336 ml Intake Oral 236 ml 236 ml IV Total 75 ml 900 ml Output Urine Total 800 ml Objective General: No acute distress, awake and alert HEENT: NCAT, sclera anicteric, PERRL, EOMI. Neck: Supple, no significant jugular venous distention, Lungs: Good inspiratory effort, no accessory muscle use, clear to auscultation bilaterally, no Wheeze or Rales. Heart: Regular rate and rhythm, normal S1/S2, no murmurs/gallops Abdomen: soft, nontender, nondistended. Normoactive bowel sounds. / Rectal: Refused and deferred. Extremities: No Cyanosis , clubbing or edema. Neuro: A&O x 3, Able to move all extremities Skin: warm, no rashes or lesions Psych: Normal mood and affect Assessment/Plan Assessment/Plan 1. Right upper quadrant pain. 2. Nausea and vomiting. 3. Acute cholecystitis. 4. Alcohol esophageal varices. Plan: DC home today. HIDA scan negative. Fracisco Helms MD May 14, 2019 16:06
--- NOTE | 2019-05-14 18:20 | NUR ---
NURSE NOTES: Discharge instruction was given to pt/father. Belongings checked and given to pt/father. Zofran written prescription was given. IV access, arm band removed. Pt discharged with his father in stable condition.
--- NOTE | 2019-05-15 10:27 | Discharge Summary ---
Discharge Summary Discharge Summary _ DATE OF ADMISSION: 05/13/2019 DATE OF DISCHARGE: 05/14/2019 ADMITTING MD: Dr. Fracisco Helms CONSULTANTS: Dr. Matilde Victoria BRIEF HOSPITAL COURSE: Patient is a 28-year-old male, who presented with chief complaint of abdominal pain, nausea and vomiting. History of present illness started 3 days prior to admission. The patient began to experience right upper quadrant pain. Pain was associated with nausea and vomiting. Pain radiated to the back and was described to be sharp. He was recently admitted to [facility] on 05/01/2019 for severe anemia secondary to GI bleed secondary to esophageal varices. He presented back to ED for further evaluation. On evaluation at ED, blood pressure was stable, heart rate was elevated 125. Blood work did not show any leukocytosis. Hemoglobin 9, hematocrit 29. Sodium was 141. Potassium was low at 3.3. Total bilirubin elevated to 2.9 and direct bilirubin 1.3. AST was elevated to 59. ALT was normal. Alkaline phosphatase elevated to 229. Lipase normal. Urinalysis with +1 leukocyte esterase, negative nitrite, 0-2 urine RBC and 0-2 urine WBC. Abdominal ultrasound showed mucosal thickening circumference circumferentially of the bladder with luminal stones. He was given Zosyn. He was then admitted for evaluation of right upper quadrant pain with nausea and vomiting, acute cholecystitis. He was admitted to [facility] floor. GI was and surgeon were evaluated. He was given bowel regimen. Diet was advanced. Patient had recent endoscopy with esophageal banding due to esophageal varices. Surgical evaluation was done. Right upper quadrant pain on admission had eventually resolved. There was no nausea, vomiting, fever or chills. Patient was able to tolerate diet with no recurrence of symptoms. No acute surgical intervention planned. HIDA scan was negative.. Due to rapid unexpected improvement in patient's symptoms and negative work-up, patient was discharged home. FINAL DIAGNOSES: Right upper quadrant pain, presumed to be due to acute cholecystitis, resolved Nausea and vomiting Alcoholic cirrhosis Esophageal varices with recent banding DISPOSITION: Patient was discharged home. DISCHARGE MEDICATIONS: Refer to Discharge Medication List. DISCHARGE INSTRUCTIONS: Follow-up in a week. I have been assigned to complete a discharge summary on this account, I was not involved with the patient's management.--DASIA Linares Jacqueline Robles NP May 15, 2019 10:27
--- NOTE | 2019-05-17 16:01 | NUR ---
*-* INSURANCE *-* UPDATED CLINICALS AND REVIEWS HAVE BEEN FAXED TO: [employer] ASSIGNED AT THIS TIME. PLEASE FAX THE REVIEW/CLINICAL P- [phone] F- [phone] - REVIEW/CLINICAL
== END 2019-05-14 18:20 | disposition home or self-care (01) ==
LOC: EMR 22:13 → 3E 05-13 01:00 → EDBEDREQ 05-13 01:36
DX: K80.00 Calculus of gallbladder with acute cholecystitis without obstruction (principal); I85.00 Esophageal varices without bleeding; K70.30 Alcoholic cirrhosis of liver without ascites
CPT/HCPCS: 36415; 76700; 78266; 80053; 81003; 82150; 82248; 82565; 83690; 83735; 84100; 84520; 85025; 85610; 85651; 85730; 86140; 96361; 96365; 96375; 99285; J2405

== ENCOUNTER 2019-07-27 07:40 | Emergency (ER) | payer OTHER ==
[~2019-07-27] VITALS: Ht 170.2 cm; Wt 77.1 kg
[~2019-07-27 07:40] MED LIST changes: +IBUPROFEN200 M2 ORAL; +ZOFRAN4 M1 ORAL
--- NOTE | 2019-07-27 07:59 | Emergency Room Report ---
History of Present Illness General Chief Complaint: Vomiting Source: Patient, Medical Record Present Illness HPI 28-year-old male presents with epigastric pain x2 days, patient states he has been unable to sleep and when he is unable to sleep he has acute vomiting, no blood no diarrhea, he endorses an achy pain alleviated by sleeping, aggravated by not sleeping, severity is moderate, intermittent, patient denies any fevers chills cough congestion, chest pain or shortness of breath, patient states he has been under a lot of stress and been having no issues sleeping. He thinks it is causing his gastritis to act up. Allergies: Coded Allergies: No Known Allergies (Unverified , 04/26/18) Patient History Past Medical History: see triage record Reviewed Nursing Documentation: PMH: Agreed; PSxH: Agreed Nursing Documentation-PMH Past Medical History: No History, Except For Hx Cardiac Problems: No Hx Cancer: No Hx Gastrointestinal Problems: Yes - pancreatitis Hx Neurological Problems: Yes Hx Seizures: Yes Review of Systems All Other Systems: negative except mentioned in HPI Physical Exam Vital Signs Date Time Temp Pulse Resp B/P (MAP) Pulse Ox O2 Delivery O2 Flow Rate FiO2 07/27/19 07:47 98.1 115 18 150/75 (100) 95 Room Air Sp02 EP Interpretation: reviewed, normal General Appearance: well appearing, no apparent distress, alert Head: normocephalic, atraumatic Eyes: bilateral eye PERRL, bilateral eye EOMI ENT: uvula midline, moist mucus membranes Neck: supple, thyroid normal, supple/symm/no masses Respiratory: lungs clear, no respiratory distress, no retraction, no accessory muscle use Cardiovascular #1: normal peripheral pulses, regular rate, rhythm, no edema, no gallop, no murmur Gastrointestinal: non tender, soft, no guarding, no rebound Musculoskeletal: normal inspection Neurologic: alert, oriented x3 Psychiatric: anxious Skin: no rash, warm/dry Medical Decision Making Diagnostic Impression: Primary Impression: Gastritis Qualified Codes: K29.50 - Unspecified chronic gastritis without bleeding Additional Impression: Abdominal pain Qualified Codes: R10.13 - Epigastric pain ER Course 28-year-old male, history of gastritis presents with epigastric pain differential diagnosis includes gastritis gastroenteritis, cholecystitis Patient given GI cocktail parent role pain medication, reevaluation at 10:05 AM , patient feels better, patient required advanced imaging given his broad differential, CT scan shows no acute processes, will disposition patient home with return precautions follow-up with GI Laboratory Tests Test 07/27/19 08:00 White Blood Count 8.4 K/UL (4.8-10.8) Red Blood Count 5.48 M/UL (4.70-6.10) Hemoglobin 10.8 G/DL (14.2-18.0) L Hematocrit 35.5 % (42.0-52.0) L Mean Corpuscular Volume 65 FL (80-99) L Mean Corpuscular Hemoglobin 19.7 PG (27.0-31.0) L Mean Corpuscular Hemoglobin Concent 30.4 G/DL (32.0-36.0) L Red Cell Distribution Width 17.3 % (11.6-14.8) H Platelet Count 354 K/UL (150-450) Mean Platelet Volume 5.5 FL (6.5-10.1) L Neutrophils (%) (Auto) 73.3 % (45.0-75.0) Lymphocytes (%) (Auto) 18.1 % (20.0-45.0) L Monocytes (%) (Auto) 7.3 % (1.0-10.0) Eosinophils (%) (Auto) 0.1 % (0.0-3.0) Basophils (%) (Auto) 1.3 % (0.0-2.0) Prothrombin Time 12.4 SEC (9.30-11.50) H Prothrombin Time INR 1.2 (0.9-1.1) H PTT 26 SEC (23-33) Sodium Level 139 MMOL/L (136-145) Potassium Level 3.7 MMOL/L (3.5-5.1) Chloride Level 99 MMOL/L (98-107) Carbon Dioxide Level 25 MMOL/L (21-32) Anion Gap 15 mmol/L (5-15) Blood Urea Nitrogen 12 mg/dL (7-18) Creatinine 1.0 MG/DL (0.55-1.30) Estimate Glomerular Filtration Rate > 60 mL/min (>60) Glucose Level 146 MG/DL (74-106) H Calcium Level 9.0 MG/DL (8.5-10.1) Total Bilirubin 3.7 MG/DL (0.2-1.0) H Direct Bilirubin 1.2 MG/DL (0.0-0.3) H Aspartate Amino Transferase (AST) 68 U/L (15-37) H Alanine Aminotransferase (ALT) 45 U/L (12-78) Alkaline Phosphatase 353 U/L (46-116) H Total Protein 9.3 G/DL (6.4-8.2) H Albumin 4.3 G/DL (3.4-5.0) Globulin 5.0 g/dL Albumin/Globulin Ratio 0.9 (1.0-2.7) L Lipase 168 U/L (73-393) EKG Diagnostic Results EKG Time: 08:13 EP Interpretation: NSR, rate 90, QTc 469, no acute ST elevations, normal axis Rhythm Strip Diag. Results Rhythm Strip Time: 08:40 EP Interpretation: yes Rate: 75 Rhythm: NSR, no PVC's, no ectopy CT/MRI/US Diagnostic Results CT/MRI/US Diagnostic Results : Impression Procedure: CT Abdomen Pelvis w/Contrast Clinical Indication: Abdominal pain, epigastric pain for 2 days Technique: No oral contrast utilized, per emergency room physician request IV administration nonionic contrast. Venous phase spiral acquisition obtained through the abdomen and pelvis. Multiplanar reconstructions were generated. Total dose length product 993 mGycm. CTDIvol(s) 17 mGy. Dose reduction achieved using automated exposure control Comparison: 05/01/2019 Findings: The liver is borderline enlarged. It is mildly hypoattenuating, consistent with fatty change. No focal abnormality. Cholelithiasis again demonstrated are recanalized periumbilical vein varices. Previously demonstrated splenomegaly is not apparent currently. The gallbladder contains gallstones. No biliary ductal dilatation. The pancreas, spleen, adrenals, kidneys are unremarkable. No retroperitoneal or mesenteric mass or adenopathy. No pelvic mass or adenopathy. No evidence of diverticulosis or diverticulitis. The appendix is normal. No small bowel distention. No free or loculated intraperitoneal gas or fluid is evident. The distal esophagus, stomach, duodenum are unremarkable. The included lung bases are clear. The bones are unremarkable Impression: No acute abnormality Enlarged fatty liver Evidence of portal hypertension, with recanalized paraumbilical vein varices, also previously reported Note that previously demonstrated splenomegaly is less evident currently Cholelithiasis, also previously reported The CT scanner at [facility] is accredited by the [employer] and the scans are performed using protocols designed to limit radiation exposure to as low as reasonably achievable to attain images of sufficient resolution adequate for diagnostic evaluation. Dictated By: Orlin Myers MD Electronically Signed By: Orlin Myers MD Signed Date/Time 07/27/19 0945 CC: Robles Larsen MD Last Vital Signs Date Time Temp Pulse Resp B/P (MAP) Pulse Ox O2 Delivery O2 Flow Rate FiO2 07/27/19 07:47 98.1 115 18 150/75 (100) 95 Room Air Disposition: HOME, SELF-CARE Condition: Stable Scripts Sucralfate* (CARAFATE*) 1 Gm Tablet 1 GM ORAL FOUR TIMES A DAY, #28 TAB Prov: Robles Larsen MD 07/27/19 Referrals: NON PHYSICIAN (PCP) [facility] Gian Fajardo [facility]. [facility] Patient Instructions: Abdominal Pain, Adult, Gastritis, Adult, [id number] Additional Instructions: The patient was provided with discharge instructions, notified to follow-up with a primary care doctor and or specialist in the next 24-48 hours, and to return to the ED if they have worsening of their symptoms. Please note that this report is being documented using [employer] technology. This can lead to erroneous entry secondary to incorrect interpretation by the dictating instrument. Robles Larsen MD Jul 27, 2019 07:59
[2019-07-27] MEDS ORDERED: Dicyclomine HCl 10mg/5ml oral soln ORAL ONE (08:00)
[2019-07-27] MEDS ORDERED: Mylanta II UD 30ml ORAL ONE (08:00)
[2019-07-27] MEDS ORDERED: DiphenhydrAMINE 50mg/ml Inj IVP ONE (08:00)
[2019-07-27] MEDS ORDERED: Metoclopramide 10mg/2ml Inj IVP ONE (08:00)
[2019-07-27] MEDS ORDERED: Lidocaine 2% Visc 15ml soln ORAL ONE (08:00)
[2019-07-27] MEDS ORDERED: Ketorolac 30mg Inj IV ONE (08:00)
[2019-07-27] MEDS ORDERED: Morphine Sulfate 4mg/ml Inj (IV USE ONLY) IVP ONE (08:00)
[2019-07-27] MEDS ORDERED: Omnipaque-300 100ml vial INJ PRN (08:00)
[2019-07-27 08:16] LABS: BASOPHILS % (AUTO) 1.3 % (0.0-2.0); EOSINOPHILS % (AUTO) 0.1 % (0.0-3.0); HEMATOCRIT 35.5 % (42.0-52.0); HEMOGLOBIN 10.8 G/DL (14.2-18.0); LYMPHOCYTES % (AUTO) 18.1 % (20.0-45.0); MEAN CORPUSCULAR VOLUME 65 FL (80-99); MONOCYTES % (AUTO) 7.3 % (1.0-10.0); NEUTROPHILS % (AUTO) 73.3 % (45.0-75.0); PLATELET COUNT 354 K/UL (150-450); RED BLOOD COUNT 5.48 M/UL (4.70-6.10); RED CELL DISTRIBUTION WIDTH 17.3 % (11.6-14.8); WHITE BLOOD COUNT 8.4 K/UL (4.8-10.8)
[2019-07-27 08:28] VITALS: BP 150/75
[2019-07-27 08:29] LABS: ANION GAP 15 mmol/L (5-15); BLOOD UREA NITROGEN 12 mg/dL (7-18); CARBON DIOXIDE 25 MMOL/L (21-32); CHLORIDE 99 MMOL/L (98-107); INR 1.2 (0.9-1.1); POTASSIUM 3.7 MMOL/L (3.5-5.1); SODIUM 139 MMOL/L (136-145)
--- NOTE | 2019-07-27 08:30 | NUR ---
ED Nurse Note:pt. came with c/o abdominal pain radiating to his back and nausea, pt. is A/Ox4 ambulatory with steady gait, VSS, blood sent to labs ,given IV meds and fluids ,placed on cariac monitor
[2019-07-27 08:39] LABS: ALANINE AMINOTRANSFERASE 45 U/L (12-78); ALBUMIN 4.3 G/DL (3.4-5.0); ALBUMIN/GLOBULIN RATIO 0.9 (1.0-2.7); ALKALINE PHOSPHATASE 353 U/L (46-116); ASPARTATE AMINO TRANSFERASE 68 U/L (15-37); BILIRUBIN,TOTAL 3.7 MG/DL (0.2-1.0)
[2019-07-27 08:40] LABS: BILIRUBIN,DIRECT 1.2 MG/DL (0.0-0.3)
--- NOTE | 2019-07-27 09:50 | Diagnostic Imaging Report ---
Clinical Indication: Abdominal pain, epigastric pain for 2 days Technique: No oral contrast utilized, per emergency room physician request IV administration nonionic contrast. Venous phase spiral acquisition obtained through the abdomen and pelvis. Multiplanar reconstructions were generated. Total dose length product 993 mGycm. CTDIvol(s) 17 mGy. Dose reduction achieved using automated exposure control Comparison: 05/01/2019 Findings: The liver is borderline enlarged. It is mildly hypoattenuating, consistent with fatty change. No focal abnormality. Cholelithiasis again demonstrated are recanalized periumbilical vein varices. Previously demonstrated splenomegaly is not apparent currently. The gallbladder contains gallstones. No biliary ductal dilatation. The pancreas, spleen, adrenals, kidneys are unremarkable. No retroperitoneal or mesenteric mass or adenopathy. No pelvic mass or adenopathy. No evidence of diverticulosis or diverticulitis. The appendix is normal. No small bowel distention. No free or loculated intraperitoneal gas or fluid is evident. The distal esophagus, stomach, duodenum are unremarkable. The included lung bases are clear. The bones are unremarkable Impression: No acute abnormality Enlarged fatty liver Evidence of portal hypertension, with recanalized paraumbilical vein varices, also previously reported Note that previously demonstrated splenomegaly is less evident currently Cholelithiasis, also previously reported The CT scanner at [facility] is accredited by the [employer] and the scans are performed using protocols designed to limit radiation exposure to as low as reasonably achievable to attain images of sufficient resolution adequate for diagnostic evaluation.
[2019-07-27 09:55] VITALS: BP 98/67
--- NOTE | 2019-07-27 09:56 | NUR ---
ED Nurse Note:pt. had abdominal CT done, he tried to void a few time but couldn't, refused catheter placement, given more fluids
[2019-07-27] MEDS ORDERED: CARAFATE1 G1 ORAL (10:06)
[2019-07-27 10:32] LABS: APPEARANCE,URINE CLEAR; BILIRUBIN, URINE 1+ (NEGATIVE); COLOR,URINE BROWN; GLUCOSE, URINE (UA) NEGATIVE (NEGATIVE); KETONES,URINE 2+ (NEGATIVE); LEUKOCYTE ESTERASE ,URINE 1+ (NEGATIVE); NITRITE,URINE NEGATIVE (NEGATIVE); PH,URINE 8 (4.5-8.0); PROTEIN,URINE 4+ (NEGATIVE); UROBILINOGEN,URINE 8 MG/DL (0.0-1.0)
[2019-07-27 10:39] VITALS: BP 120/65
[2019-07-27 10:40] VITALS: BP 120/65
--- NOTE | 2019-07-27 10:44 | NUR ---
ER DISCHARGE NOTE: Patient is cleared to be discharged per ERMD, pt is aox4, on room air, with stable vital signs. pt was given dc and prescription instructions, pt was able to verbalize understanding, pt id band and iv site removed without complications. pt is able to ambulate with steady gait. pt took all belongings.
--- NOTE | 2019-07-27 14:00 | Cardiology Report ---
APPROVED REPORT EKG Measurement Heart [id number] Normal sinus rhythm Normal ECG
== END 2019-07-27 10:55 | disposition home or self-care (01) ==
LOC: EMR 07:50
DX: K29.50 Unspecified chronic gastritis without bleeding (principal); K76.0 Fatty (change of) liver, not elsewhere classified; K76.6 Portal hypertension; K80.20 Calculus of gallbladder without cholecystitis without obstruction
CPT/HCPCS: 36415; 74177; 80053; 80307; 81003; 82248; 83690; 85025; 85610; 85730; 93005; 96361; 96374; 96375; J1200; J1885; J2270; J2765; Q9967; S0028; Z7502; 99284

== ENCOUNTER 2019-11-29 04:46 | Emergency (ER) | payer OTHER ==
[~2019-11-29] VITALS: Ht 170.2 cm; Wt 70.3 kg
[~2019-11-29 04:46] MED LIST changes: +CARAFATE1 G1 ORAL; +LIBRIUM10 MG ORAL
--- NOTE | 2019-11-29 05:04 | Emergency Room Report ---
History of Present Illness General Chief Complaint: Abdominal Pain Source: Patient, Medical Record Present Illness HPI This a 29-year-old male with a history of alcohol abuse and dependency. He said is been clean for a month. He presents with complaint abdominal pain with nausea and vomiting. Onset for last 3 days. Unable to keep anything down. Has cramping pain and spasm. No diarrhea. Vomiting is nonbloody nonbilious. Denies any fever or chills but denies any trauma. Nothing made it better. Unable to keep anything down. Allergies: Coded Allergies: No Known Allergies (Unverified , 04/26/18) Patient History Past Medical History: see triage record, old chart reviewed Past Surgical History: other Pertinent Family History: none Social History: Reports: alcohol use Immunizations: other Reviewed Nursing Documentation: PMH: Agreed; PSxH: Agreed Nursing Documentation-PMH Past Medical History: No Stated History Hx Cardiac Problems: No Hx Cancer: No Hx Gastrointestinal Problems: Yes - pancreatitis, gastritis Hx Neurological Problems: Yes - ARHTRITIS Hx Seizures: Yes Review of Systems Eye: Denies: eye pain, blurred vision ENT: Denies: ear pain, nose congestion, throat swelling Respiratory: Denies: cough, shortness of breath Cardiovascular: Denies: chest pain, palpitations Gastrointestinal: Reports: abdominal pain, nausea, vomiting; Denies: diarrhea Musculoskeletal: Denies: back pain, joint pain Skin: Denies: rash Neurological: Denies: headache, numbness Endocrine: Denies: increased thirst, increased urine Hematologic/Lymphatic: Denies: easy bruising All Other Systems: negative except mentioned in HPI Physical Exam Vital Signs Date Time Temp Pulse Resp B/P (MAP) Pulse Ox O2 Delivery O2 Flow Rate FiO2 11/29/19 04:49 98.8 124 20 146/88 (107) 96 Room Air Vitals with tachycardia Sp02 EP Interpretation: reviewed, normal General Appearance: well appearing, no apparent distress, alert Head: normocephalic, atraumatic Eyes: bilateral eye PERRL, bilateral eye EOMI ENT: hearing grossly normal, normal pharynx Neck: full range of motion, supple, no meningismus Respiratory: chest non-tender, lungs clear, normal breath sounds Cardiovascular #1: regular rate, rhythm, no murmur Gastrointestinal: no mass, no organomegaly, no bruit, non-distended, tenderness - Mild, diffuse, decreased bowel sounds Musculoskeletal: back normal, normal range of motion, gait/station normal Neurologic: other - Shaky Psychiatric: mood/affect normal Medical Decision Making Diagnostic Impression: Primary Impression: Abdominal pain Qualified Codes: R10.11 - Right upper quadrant pain Additional Impression: Hepatitis ER Course Patient with abdominal pain and vomiting. Initially his pain is diffuse but now mostly right upper quadrant. He has previous ultrasound which show gallbladder wall thickening and gallstones. Previous US also showed possible gallbladder polyp. His LFTs has been persistently elevated as his bilirubin. LFTs are slightly worse today than in comparison in the past. He was admitted before for cholecystitis but HIDA scan was negative for obstruction or cholecystitis. I suspect that he may have a congenital liver disease like Gilbert's. Because of his continued pain, will get CT scan. I will sign this patient out to Dr. Abdi for final disposition. Rhythm Strip Diag. Results EP Interpretation: yes Rate: 100 Rhythm: NSR, no PVC's, no ectopy CT/MRI/US Diagnostic Results CT/MRI/US Diagnostic Results : Imaging Test Ordered: CT abd and pelvis Impression Read by radiologist. Fatty liver. gallstones Last Vital Signs Date Time Temp Pulse Resp B/P (MAP) Pulse Ox O2 Delivery O2 Flow Rate FiO2 11/29/19 04:49 98.8 124 20 146/88 (107) 96 Room Air Status: improved Disposition: HOME, SELF-CARE Condition: Stable Scripts Pantoprazole Sodium (PROTONIX) 20 Mg Tablet. 20 MG ORAL EVERY 12 HOURS for 30 Days, TAB Prov: Trudy Aiken M.D. 11/29/19 Ondansetron (Zofran) 4 Mg Tablet 4 MG ORAL Q6H PRN for Nausea & Vomiting, #10 TAB Prov: Trudy Aiken M.D. 11/29/19 Klaus Diop MD Nov 29, 2019 05:04
[2019-11-29 05:10] VITALS: BP 146/88
--- NOTE | 2019-11-29 05:10 | NUR ---
ER Nurse Note: Pt walked in c/o severe abdominal pain since 3 days ago associated with n/v. Pt stated he has hand tremors, unable to sleep for the past 3 days, headache. Pt a&ox4, HR >100bpm, otherwise VSS. Bowel sounds heard in all quadrants, soft of palpation. Pt stated he cannot provide a urine sample. IV esablished on RT AC; pt tolerated well. All safety measures met; will continue to montior.
[2019-11-29 05:15] LABS: HEMOGLOBIN 13.4 G/DL (14.2-18.0); LYMPHOCYTES % (AUTO) 17.7 % (20.0-45.0); MEAN CORPUSCULAR VOLUME 76 FL (80-99); MONOCYTES % (AUTO) 6.4 % (1.0-10.0); NEUTROPHILS % (AUTO) 74.9 % (45.0-75.0); PLATELET COUNT 172 K/UL (150-450); RED BLOOD COUNT 5.52 M/UL (4.70-6.10); RED CELL DISTRIBUTION WIDTH 16.3 % (11.6-14.8); WHITE BLOOD COUNT 10.7 K/UL (4.8-10.8)
[2019-11-29] MEDS ORDERED: LORazepam Inj 2mg/ml 1ml IV ONE (05:15)
[2019-11-29] MEDS ORDERED: Morphine Sulfate 4mg/ml Inj (IV USE ONLY) IVP ONE (05:15)
[2019-11-29 05:38] LABS: ALANINE AMINOTRANSFERASE 108 U/L (12-78); ALBUMIN 4.6 G/DL (3.4-5.0); ALKALINE PHOSPHATASE 279 U/L (46-116); ANION GAP 14 mmol/L (5-15); ASPARTATE AMINO TRANSFERASE 163 U/L (15-37); BILIRUBIN,TOTAL 3.7 MG/DL (0.2-1.0); BLOOD UREA NITROGEN 13 mg/dL (7-18); CALCIUM 9.1 MG/DL (8.5-10.1); CARBON DIOXIDE 26 MMOL/L (21-32); CHLORIDE 98 MMOL/L (98-107); CREATININE 1.1 MG/DL (0.55-1.30); POTASSIUM 3.9 MMOL/L (3.5-5.1); SODIUM 138 MMOL/L (136-145)
[2019-11-29 05:39] LABS: BILIRUBIN,DIRECT 1.4 MG/DL (0.0-0.3)
[2019-11-29] MEDS ORDERED: Omnipaque-300 100ml vial INJ PRN (05:45)
--- NOTE | 2019-11-29 05:47 | NUR ---
ER Nurse Note: Pt stated the pain is improving after medication administered. Pt stated the tremors subsided. Consent approved for using contrast. Pt stated unable to provide urine. Will ask again soon. All safety measures met; will conitnue to ladi.
--- NOTE | 2019-11-29 07:06 | NUR ---
ER Nurse Note: Report given to oncoming nurse for continuity of care. Urine not provided; receiving nurse aware. VSS.
[2019-11-29 07:08] VITALS: BP 136/76
--- NOTE | 2019-11-29 07:30 | Diagnostic Imaging Report ---
INDICATION: Abdominal pain TECHNIQUE: Continuous helical transaxial imaging of the abdomen and pelvis was obtained from the lung bases to the pubic symphysis during intravenous contrast administration. Coronal 2-D reformats were also obtained. Study obtained in a Siemens sensation [address] Automatic Exposure Control was utilized. Total Dose length Product (DLP): 1601.[address] Dose Index Volume (CTDIvol): 26.3 mGy COMPARISON: 07/27/2019 FINDINGS: Lungs: Hernia is present. The lung bases are clear.. Liver: There is diffuse low-attenuation of the liver consistent with fatty infiltration. The left lobe has a symmetric or elongated the appearance extending into the left upper quadrant interposed between the diaphragm and spleen. Gallbladder/biliary system: Gallstones are present. There is no gallbladder wall thickening identified. No biliary ductal dilatation is identified.. Spleen: Unremarkable Pancreas: Unremarkable Kidneys/Bladder: No hydronephrosis identified. Both kidneys enhance symmetrically. The urinary bladder is unremarkable.. Adrenal glands: Unremarkable Aorta/IVC: Unremarkable Bowel: There is no evidence of bowel obstruction. Appendix is normal. Peritoneum: There is no free fluid. Bones: Unremarkable IMPRESSION: Fatty liver. Gallstones Small hiatal hernia. [facility] has communicated the preliminary results to the Emergency Department. Their findings are largely concordant with this report. The CT scanner at [facility] is accredited by the [employer] and the scans are performed using dose optimization techniques as appropriate to a performed exam including Automatic Exposure control.
[2019-11-29] MEDS ORDERED: ZOFRAN4 M1 ORAL (08:50)
[2019-11-29] MEDS ORDERED: PROTONIX20 MG ORAL (08:50)
--- NOTE | 2019-11-29 08:54 | Emergency Room Report ---
Physical Exam Vital Signs Date Time Temp Pulse Resp B/P (MAP) Pulse Ox O2 Delivery O2 Flow Rate FiO2 11/29/19 04:49 98.8 124 20 146/88 (107) 96 Room Air Medical Decision Making Diagnostic Impression: Primary Impression: Abdominal pain Qualified Codes: R10.11 - Right upper quadrant pain Additional Impressions: Hepatitis Alcohol dependence ER Course Patient signed out by Dr. Diop pending CT. CT demonstrates no acute intra- abdominal pathology. Patient has elevated LFTs with history of the same due to alcohol dependence. Ultrasound demonstrates cholelithiasis without evidence for cholecystitis. Patient is nontoxic-appearing. His vital signs have been stable. He has not vomited since being here. I am giving the patient a prescription for Zofran as well as Protonix. I have counseled the patient on the dangers of alcohol abuse. He has been given outpatient resources. After discussing risks and benefits of further diagnostics, treatment plans, as well as indications for and risks of admission, the patient is agreeable to being discharged home. I have explained that their evaluation and treatment in the emergency department today is an important step towards them achieving better health but that their evaluation today is not intended to replace further evaluation and treatment by a physician in their local clinic. I have explained that while the current findings suggest no immediate life threatening emergency they will require further evaluation and treatment by a physician of their choice in their area. They understand that it will be necessary for them to review the final reports of their ED visit with their clinic physician. We have reviewed indications for return to the Emergency Department. I have explained that additional time may need to pass and/or additional testing as an outpatient may be necessary before a definitive diagnosis can be made. They tell me they are willing to follow up as instructed within the timeframe I recommend. They appear to understand what we discussed. Additionally they understand that if they are unable to be seen by an outpatient physician they are welcome, and in fact should, return to the Emergency Department for a repeat evaluation. The patient is stable at time of discharge. Laboratory Tests Test 11/29/19 05:05 White Blood Count 10.7 K/UL (4.8-10.8) Red Blood Count 5.52 M/UL (4.70-6.10) Hemoglobin 13.4 G/DL (14.2-18.0) L Hematocrit 42.0 % (42.0-52.0) Mean Corpuscular Volume 76 FL (80-99) L Mean Corpuscular Hemoglobin 24.3 PG (27.0-31.0) L Mean Corpuscular Hemoglobin Concent 32.0 G/DL (32.0-36.0) Red Cell Distribution Width 16.3 % (11.6-14.8) H Platelet Count 172 K/UL (150-450) Mean Platelet Volume 7.0 FL (6.5-10.1) Neutrophils (%) (Auto) 74.9 % (45.0-75.0) Lymphocytes (%) (Auto) 17.7 % (20.0-45.0) L Monocytes (%) (Auto) 6.4 % (1.0-10.0) Eosinophils (%) (Auto) 0.0 % (0.0-3.0) Basophils (%) (Auto) 1.0 % (0.0-2.0) Sodium Level 138 MMOL/L (136-145) Potassium Level 3.9 MMOL/L (3.5-5.1) Chloride Level 98 MMOL/L (98-107) Carbon Dioxide Level 26 MMOL/L (21-32) Anion Gap 14 mmol/L (5-15) Blood Urea Nitrogen 13 mg/dL (7-18) Creatinine 1.1 MG/DL (0.55-1.30) Estimate Glomerular Filtration Rate > 60 mL/min (>60) Glucose Level 171 MG/DL (74-106) H Calcium Level 9.1 MG/DL (8.5-10.1) Total Bilirubin 3.7 MG/DL (0.2-1.0) H Direct Bilirubin 1.4 MG/DL (0.0-0.3) H Aspartate Amino Transferase (AST) 163 U/L (15-37) H Alanine Aminotransferase (ALT) 108 U/L (12-78) H Alkaline Phosphatase 279 U/L (46-116) H Total Protein 9.4 G/DL (6.4-8.2) H Albumin 4.6 G/DL (3.4-5.0) Globulin 4.8 g/dL Albumin/Globulin Ratio 1.0 (1.0-2.7) Lipase 193 U/L (73-393) Rhythm Strip Diag. Results Rhythm Strip Time: 08:54 EP Interpretation: yes Rate: 88 Rhythm: NSR, no PVC's, no ectopy Last Vital Signs Date Time Temp Pulse Resp B/P (MAP) Pulse Ox O2 Delivery O2 Flow Rate FiO2 11/29/19 07:08 98.5 88 16 136/76 96 Room Air Disposition: HOME, SELF-CARE Condition: Stable Scripts Pantoprazole Sodium (PROTONIX) 20 Mg Tablet.dr 20 MG ORAL EVERY 12 HOURS for 30 Days, TAB Prov: Trudy Aiken M.D. 11/29/19 Ondansetron (Zofran) 4 Mg Tablet 4 MG ORAL Q6H PRN for Nausea & Vomiting, #10 TAB Prov: Trudy Aiken M.D. 11/29/19 Referrals: NON PHYSICIAN (PCP) [facility] Patient Instructions: Abdominal Pain, Adult Trudy Aiken M.D. Nov 29, 2019 08:54
--- NOTE | 2019-11-29 09:10 | NUR ---
ED Nurse Note: Urine sent to lab.
[2019-11-29 09:15] VITALS: BP 108/72
--- NOTE | 2019-11-29 09:15 | NUR ---
ER DISCHARGE NOTE: Patient is cleared to be discharged per ERMD, pt is aox4, on room air, with stable vital signs. pt was given dc and prescription instructions, pt was able to verbalize understanding, pt id band and iv site removed without complications. pt is able to ambulate with steady gait. pt took all belongings. Pt given water. Urine sent 0900.
[2019-11-29 09:46] LABS: APPEARANCE,URINE CLEAR; BILIRUBIN, URINE NEGATIVE (NEGATIVE); GLUCOSE, URINE (UA) NEGATIVE (NEGATIVE); KETONES,URINE 2+ (NEGATIVE); LEUKOCYTE ESTERASE ,URINE NEGATIVE (NEGATIVE); NITRITE,URINE NEGATIVE (NEGATIVE); PH,URINE 8 (4.5-8.0); PROTEIN,URINE 4+ (NEGATIVE); UROBILINOGEN,URINE 8 MG/DL (0.0-1.0)
[2019-11-29 09:55] LABS: COLOR,URINE YELLOW
--- NOTE | 2019-11-29 12:14 | Diagnostic Imaging Report ---
Indication: Abdominal pain Technique: Grayscale and duplex Doppler imaging of the abdomen performed. Comparison: None Findings: The liver is echogenic consistent with fatty infiltration. Doppler interrogation of the main portal vein shows patency with hepatopedal, monophasic flow. There is no biliary ductal dilatation identified. CBD is 4 mm in diameter. No stones are seen in the gallbladder on this exam. Review of the CT shows definite stones in the dependent portion of the gallbladder lumen. Current ultrasound evaluation also shows an area of wall thickening of the fundus which could be a sessile polyp measuring about 6 mm. This is not appreciated on the CT examination. There demonstrated part of the pancreas, aorta and IVC show no definite abnormalities. Both kidneys appear unremarkable. There is no hydronephrosis. IMPRESSION: Sessile polyp in the fundal region of the gallbladder. Consider further evaluation with gadolinium-enhanced MRI. Gallstone seen on CT but not on ultrasound. Fatty liver
== END 2019-11-29 09:15 | disposition home or self-care (01) ==
LOC: EMR 05:05
DX: R10.11 Right upper quadrant pain (principal); K75.9 Inflammatory liver disease, unspecified; K80.80 Other cholelithiasis without obstruction; M19.90 Unspecified osteoarthritis, unspecified site; F10.20 Alcohol dependence, uncomplicated
CPT/HCPCS: 36415; 74177; 76700; 80053; 81003; 82248; 83690; 85025; 96361; 96374; 96375; J2270; J2405; J7030; Q9967; Z7502; 99284

== ENCOUNTER 2019-12-18 16:25 | Emergency (ER) | payer OTHER ==
[~2019-12-18] VITALS: Ht 172.7 cm; Wt 81.2 kg
[2019-12-18 16:30] VITALS: BP 134/86
--- NOTE | 2019-12-18 16:30 | NUR ---
ED Nurse Note: Patient walked into ED from home c/o nosebleed on and off x 2 weeks. Patient states his nose last bled 2 hours ago. Patient states he has been continuously drunk for the last 2 weeks while also taking ibuprofen. Patient AxO x 4, 18 g IV started in right AC, blood and urine sent to lab.
[2019-12-18] MEDS ORDERED: chlordiazePOXIDE 25mg Cap ORAL ONE (16:45)
--- NOTE | 2019-12-18 17:25 | Diagnostic Imaging Report ---
EXAM: CT Maxillofacial Without Intravenous Contrast CLINICAL HISTORY: TRAUMA TECHNIQUE: Axial computed tomography images of the face without intravenous contrast. CTDI is 68.7 mGy and DLP is 1323.1 mGy-cm. One or more of the following dose reduction techniques were used: automated exposure control, adjustment of the mA and/or kV according to patient size, use of iterative reconstruction technique. COMPARISON: No relevant prior studies available. FINDINGS: Bones/joints: No acute fracture. Soft tissues: Unremarkable. Orbits: Unremarkable. Sinuses: Mild sinus mucosal thickening. Retention cyst. IMPRESSION: No displaced fracture.
--- NOTE | 2019-12-18 17:28 | Diagnostic Imaging Report ---
EXAM: CT Head Without Intravenous Contrast CLINICAL HISTORY: TRAUMA TECHNIQUE: Axial computed tomography images of the head/brain without intravenous contrast. CTDI is 68.7 mGy and DLP is 1323.1 mGy-cm. One or more of the following dose reduction techniques were used: automated exposure control, adjustment of the mA and/or kV according to patient size, use of iterative reconstruction technique. COMPARISON: No relevant prior studies available. FINDINGS: Brain: No hemorrhage. No edema. Ventricles: No ventriculomegaly. Bones/joints: No acute fracture. Soft tissues: Unremarkable. Sinuses: No acute sinusitis. Mastoid air cells: No mastoid effusion. IMPRESSION: No acute intracranial process.
--- NOTE | 2019-12-18 17:45 | Emergency Room Report ---
History of Present Illness General Chief Complaint: Nosebleed Source: Patient Present Illness HPI 29-year-old male with history of heavy alcohol abuse who has been seen here multiple times for similar complaint here complaining of 2 days of nasal bleeding. Patient denies any fall or injury. However patient is medical history and does not recall that he had a head injury or not. No active bleeding noted. No septal hematoma noted. Patient appears to be under minor influence of alcohol however mostly going through withdrawal symptoms. Denies any other drug use. Denies chest pain, shortness of breath, palpitation, headache and dizziness. Has not taken medication for symptom relief. Appears to be stable with stable vital signs Allergies: Coded Allergies: No Known Allergies (Unverified , 04/26/18) Patient History Past Medical History: see triage record Past Surgical History: unable to obtain Pertinent Family History: none Social History: Reports: alcohol use Immunizations: UTD Reviewed Nursing Documentation: PMH: Agreed; PSxH: Agreed Nursing Documentation-PMH Hx Cardiac Problems: No Hx Cancer: No Hx Gastrointestinal Problems: Yes - pancreatitis, gastritis Hx Neurological Problems: Yes - ARHTRITIS Hx Seizures: Yes Review of Systems All Other Systems: negative except mentioned in HPI Physical Exam Vital Signs Date Time Temp Pulse Resp B/P (MAP) Pulse Ox O2 Delivery O2 Flow Rate FiO2 12/18/19 16:30 98.4 110 21 134/86 97 Room Air Sp02 EP Interpretation: reviewed, normal General Appearance: no apparent distress, alert, GCS 15, non-toxic Head: normocephalic, atraumatic Eyes: bilateral eye normal inspection, bilateral eye PERRL ENT: hearing grossly normal, normal pharynx, no angioedema, normal voice, other - No septal hematoma noted Neck: full range of motion, supple, no meningismus, supple/symm/no masses Respiratory: chest non-tender, lungs clear, normal breath sounds, no rhonchi, no wheezing, speaking full sentences Cardiovascular #1: regular rate, rhythm, no edema Gastrointestinal: non tender, soft Rectal: deferred Genitourinary: no CVA tenderness Neurologic: alert, oriented Psychiatric: judgement/insight normal, mood/affect normal, no suicidal/ homicidal ideation, anxious Skin: no rash Lymphatic: no adenopathy Medical Decision Making PA Attestation Diagnosis and treatment plans were reviewed and discussed with my supervising physician Dr. Larsen Diagnostic Impression: Primary Impression: Nasal bleeding Additional Impression: Alcohol withdrawal ER Course 29-year-old male with history of heavy alcohol abuse who has been seen here multiple times for similar complaint here complaining of 2 days of nasal bleeding. Patient denies any fall or injury. However patient is medical history and does not recall that he had a head injury or not. No active bleeding noted. No septal hematoma noted. Patient appears to be under minor influence of alcohol however mostly going through withdrawal symptoms. Denies any other drug use. Denies chest pain, shortness of breath, palpitation, headache and dizziness. Has not taken medication for symptom relief. Appears to be stable with stable vital signs Ddx considered but are not limited to: Alcohol intoxication with altered level of consciousness, alcohol intoxication causing pancreatitis, alcohol abuse, multi drug use and alcohol intoxication Vital signs: are WNL, pt. is afebrile H&PE are most consistent with: Alcohol withdrawal, nasal bleeding without septal hematoma and no active bleeding ORDERS: Tox screen, head and facial CT no contrast ER intervention: NS bolus, 100 mg of Librium p.o. DISCHARGE: At this time pt. is stable for d/c to home. Will provide printed patient care instructions, and any necessary prescriptions. Care plan and follow up instructions have been discussed with the patient prior to discharge. At this time no nasal packing noted as patient is not actively bleeding, I advised him to apply pressure to the affected area, if worsening symptoms return to the emergency room. Also gave list of detox centers. CT/MRI/US Diagnostic Results CT/MRI/US Diagnostic Results #1: Imaging Test Ordered: Head CT no contrast Impression No signs of trauma or intracranial bleed CT/MRI/US Diagnostic Results #2: Imaging Test Ordered: Facial CT no contrast Impression No intracranial bleed, no nasal bone fracture, no other fracture noted Last Vital Signs Date Time Temp Pulse Resp B/P (MAP) Pulse Ox O2 Delivery O2 Flow Rate FiO2 12/18/19 16:34 98.4 107 18 157/99 (118) 93 Room Air Status: improved Disposition: HOME, SELF-CARE Condition: Stable Referrals: NON PHYSICIAN (PCP) Patient Instructions: Alcohol Withdrawal, [id number], Nosebleed, [id number] Additional Instructions: follow-up with your primary care provider, avoid overuse of Motrin, if worsening symptoms return to the emergency room. Avoid drinking alcohol Marcy Demarco Dec 18, 2019 17:45
[2019-12-18 18:09] VITALS: BP 138/87
--- NOTE | 2019-12-18 18:09 | NUR ---
ER DISCHARGE NOTE: Patient cleared for DC by Marcy RUVALCABA. Patient AxO x 4, no s/s of acute distress. Patient verbalized understanding of DC instructions. Patient ID band removed. Able to ambulate with steady gait, took all belongings.
== END 2019-12-18 18:09 | disposition home or self-care (01) ==
LOC: EMR 16:44
DX: R04.0 Epistaxis (principal); F10.239 Alcohol dependence with withdrawal, unspecified; Y90.9 Presence of alcohol in blood, level not specified
CPT/HCPCS: 70450; 70486; 80307; 96361; 96374; J2405; J7030; Z7502; 99284

== ENCOUNTER 2019-12-19 00:26 | Emergency (ER) | payer OTHER ==
[~2019-12-19] VITALS: Ht 167.6 cm; Wt 79.8 kg
--- NOTE | 2019-12-19 00:35 | NUR ---
ED Nurse Note: Pt walked in c/o chest pain since AM that radiates to his arm. Pt stated his nose was bleeding recently and now he feels dizzy and has chest pain. AO4. NAD. VSS. ambulates with steady gait. accompanied by family member. changed into gown; attached to monitor. safety measures met.
[2019-12-19 00:50] VITALS: BP 159/107
--- NOTE | 2019-12-19 00:50 | NUR ---
ED Nurse Note: iv access established. blood collected; sent down to lab. ekg done at bedside with analilia
--- NOTE | 2019-12-19 01:01 | Emergency Room Report ---
History of Present Illness General Chief Complaint: Chest Pain Source: Patient Present Illness HPI Disclaimer: Please note that this report is being documented using [employer] technology. This can lead to erroneous entry secondary to incorrect interpretation by the dictating instrument. HPI: 29-year-old male presents for evaluation of lightheadedness and near syncope. He has a history of alcohol abuse and is seen in the emergency department multiple times over the past few months. He was in here earlier today with epistaxis. He states that he went home and felt lightheaded while urinating in the bathroom. Was able to catch himself from falling. No head injury. No loss of consciousness. Denied any seizure-like activity. States he was complaining of some numbness and tingling in his hands as well as some discomfort in his chest. Difficult to describe according to the patient. It is midsternal does not radiate. No associated shortness of breath, no nausea, no vomiting. He has a history of esophageal varices. Denies any hematemesis lately. Does not take any blood thinners. States he is no longer using alcohol. PMH: Alcohol abuse, esophageal varices PSH: EGD Allergies: Denies Social Hx: Former alcohol abuse Allergies: Coded Allergies: No Known Allergies (Unverified , 04/26/18) Nursing Documentation-PMH Hx Cardiac Problems: No Hx Cancer: No Hx Gastrointestinal Problems: Yes - pancreatitis, gastritis Hx Neurological Problems: Yes - ARHTRITIS Hx Seizures: Yes Review of Systems All Other Systems: negative except mentioned in HPI Physical Exam Vital Signs Date Time Temp Pulse Resp B/P (MAP) Pulse Ox O2 Delivery O2 Flow Rate FiO2 12/19/19 00:30 98.1 100 16 159/107 (124) 96 Room Air General: Awake and alert, no acute distress HEENT: NC/AT. EOMI. Cardiovascular: RRR. S1 and S2 normal. No murmur appreciated Resp: Normal work of breathing. No cough, wheezing or crackles appreciated Abdomen: Abdomen is soft, nondistended. Nontender Skin: Intact. No abrasions, laceration or rash over the exposed skin MSK: Normal tone and bulk. Moving all extremities. No obvious deformity. Neuro: Awake and alert. Mentating appropriately. Medical Decision Making Diagnostic Impression: Primary Impression: Alcohol intoxication Additional Impressions: Lightheaded Near syncope ER Course Is a 29-year-old male presenting for evaluation of the near syncope episode. He reports being lightheaded and had some chest discomfort that radiates down to the arms. Looks like he received some Librium on his last visit a few hours ago. Differential includes was not limited to dehydration, anemia, alcohol intoxication, drug use, polypharmacy, arrhythmia, ACS, pneumonia, pancreatitis. Start broad metabolic infectious and cardiac work-up. Will obtain EKG, chest x-ray cardiac enzymes as well as abdominal labs. He arrives with stable vital signs. No acute distress. Laboratory Tests Test 12/19/19 00:50 White Blood Count 9.3 K/UL (4.8-10.8) Red Blood Count 5.23 M/UL (4.70-6.10) Hemoglobin 13.1 G/DL (14.2-18.0) L Hematocrit 39.4 % (42.0-52.0) L Mean Corpuscular Volume 75 FL (80-99) L Mean Corpuscular Hemoglobin 25.1 PG (27.0-31.0) L Mean Corpuscular Hemoglobin Concent 33.3 G/DL (32.0-36.0) Red Cell Distribution Width 17.2 % (11.6-14.8) H Platelet Count 356 K/UL (150-450) Mean Platelet Volume 6.1 FL (6.5-10.1) L Neutrophils (%) (Auto) 55.6 % (45.0-75.0) Lymphocytes (%) (Auto) 35.1 % (20.0-45.0) Monocytes (%) (Auto) 6.8 % (1.0-10.0) Eosinophils (%) (Auto) 0.8 % (0.0-3.0) Basophils (%) (Auto) 1.7 % (0.0-2.0) Urine Color Brown Urine Appearance Clear Urine pH 6.5 (4.5-8.0) Urine Specific [place] 1.020 (1.005-1.035) Urine Protein 4+ (NEGATIVE) H Urine Glucose (UA) Negative (NEGATIVE) Urine Ketones Negative (NEGATIVE) Urine Blood 4+ (NEGATIVE) H Urine Nitrite Negative (NEGATIVE) Urine Bilirubin Negative (NEGATIVE) Urine Urobilinogen 1 MG/DL (0.0-1.0) H Urine Leukocyte Esterase 1+ (NEGATIVE) H Urine RBC 2-4 /HPF (0 - 0) H Urine WBC 0-2 /HPF (0 - 0) Urine Squamous Epithelial Cells Occasional /LPF Urine Bacteria Occasional /HPF (NONE) Urine Mucus Few /LPF (NONE/OCC) H Sodium Level 146 MMOL/L (136-145) H Potassium Level 3.4 MMOL/L (3.5-5.1) L Chloride Level 105 MMOL/L (98-107) Carbon Dioxide Level 26 MMOL/L (21-32) Anion Gap 15 mmol/L (5-15) Blood Urea Nitrogen 3 mg/dL (7-18) L Creatinine 0.7 MG/DL (0.55-1.30) Estimate Glomerular Filtration Rate > 60 mL/min (>60) Glucose Level 131 MG/DL (74-106) H Calcium Level 8.6 MG/DL (8.5-10.1) Total Bilirubin 1.5 MG/DL (0.2-1.0) H Direct Bilirubin 0.6 MG/DL (0.0-0.3) H Aspartate Amino Transferase (AST) 108 U/L (15-37) H Alanine Aminotransferase (ALT) 107 U/L (12-78) H Alkaline Phosphatase 252 U/L (46-116) H Troponin I 0.000 ng/mL (0.000-0.056) Total Protein 8.3 G/DL (6.4-8.2) H Albumin 3.9 G/DL (3.4-5.0) Globulin 4.4 g/dL Albumin/Globulin Ratio 0.9 (1.0-2.7) L Urine Opiates Screen Negative (NEGATIVE) Urine Barbiturates Screen Negative (NEGATIVE) Phencyclidine (PCP) Screen Negative (NEGATIVE) Urine Amphetamines Screen Negative (NEGATIVE) Urine Benzodiazepines Screen Positive (NEGATIVE) H Urine Cocaine Screen Negative (NEGATIVE) Urine Marijuana (THC) Screen Negative (NEGATIVE) Serum Alcohol 256 mg/dL EKG Diagnostic Results EKG Time: 00:36 Rate: normal Rhythm: NSR ST Segments: no acute changes Other Impression Sinus rhythm, normal axis, normal intervals, no ST segment changes Rhythm Strip Diag. Results Rhythm Strip Time: 00:36 EP Interpretation: yes Rate: 90s Rhythm: NSR, no PVC's, no ectopy Chest X-Ray Diagnostic Results Chest X-Ray Diagnostic Results : Chest X-Ray Ordered: Yes # of Views/Limited/Complete: 1 View Indication: Chest Pain Interpretation: no consolidation, no effusion Impression: No acute disease Electronically Signed by: Electronically signed by Dr. Jose Angel Freeman Reevaluation Time: 01:50 Last Vital Signs Date Time Temp Pulse Resp B/P (MAP) Pulse Ox O2 Delivery O2 Flow Rate FiO2 12/19/19 00:30 98.1 100 16 159/107 (124) 96 Room Air Reevaluation Impression EKG nonischemic. Chest x-ray unremarkable. Labs show elevated LFTs consistent with the patient's prior visits and history of alcohol abuse. His ALT elevated to 56 and is positive for benzodiazepines. He received Librium on his previous emergency department visit earlier today. Likely a mixing of alcohol and Librium together caused his lightheadedness. Do not believe he is having acute cardiac event at this time. He can be discharged to follow-up on an outpatient basis. Discussed needs to follow-up for his LFTs, alcohol use and his episode of lightheadedness. He can return with new or worsening symptoms. His father is here to take him home. Disposition: HOME, SELF-CARE Condition: Stable Jose Angel Freeman MD Dec 19, 2019 01:01
[2019-12-19 01:04] LABS: BASOPHILS % (AUTO) 1.7 % (0.0-2.0); EOSINOPHILS % (AUTO) 0.8 % (0.0-3.0); HEMATOCRIT 39.4 % (42.0-52.0); HEMOGLOBIN 13.1 G/DL (14.2-18.0); LYMPHOCYTES % (AUTO) 35.1 % (20.0-45.0); MEAN CORPUSCULAR VOLUME 75 FL (80-99); MONOCYTES % (AUTO) 6.8 % (1.0-10.0); NEUTROPHILS % (AUTO) 55.6 % (45.0-75.0); PLATELET COUNT 356 K/UL (150-450); RED BLOOD COUNT 5.23 M/UL (4.70-6.10); RED CELL DISTRIBUTION WIDTH 17.2 % (11.6-14.8); WHITE BLOOD COUNT 9.3 K/UL (4.8-10.8)
--- NOTE | 2019-12-19 01:04 | NUR ---
ED Nurse Note: imaging at bedside for cxr
[2019-12-19 01:23] LABS: ALANINE AMINOTRANSFERASE 107 U/L (12-78); ALBUMIN 3.9 G/DL (3.4-5.0); ALBUMIN/GLOBULIN RATIO 0.9 (1.0-2.7); ALKALINE PHOSPHATASE 252 U/L (46-116); ANION GAP 15 mmol/L (5-15); ASPARTATE AMINO TRANSFERASE 108 U/L (15-37); BILIRUBIN,TOTAL 1.5 MG/DL (0.2-1.0); CALCIUM 8.6 MG/DL (8.5-10.1); CARBON DIOXIDE 26 MMOL/L (21-32); CHLORIDE 105 MMOL/L (98-107); CREATININE 0.7 MG/DL (0.55-1.30); POTASSIUM 3.4 MMOL/L (3.5-5.1); SODIUM 146 MMOL/L (136-145)
[2019-12-19 01:24] LABS: BILIRUBIN,DIRECT 0.6 MG/DL (0.0-0.3)
[2019-12-19 01:26] LABS: APPEARANCE,URINE CLEAR; BILIRUBIN, URINE NEGATIVE (NEGATIVE); COLOR,URINE BROWN; GLUCOSE, URINE (UA) NEGATIVE (NEGATIVE); KETONES,URINE NEGATIVE (NEGATIVE); LEUKOCYTE ESTERASE ,URINE 1+ (NEGATIVE); NITRITE,URINE NEGATIVE (NEGATIVE); PH,URINE 6.5 (4.5-8.0); PROTEIN,URINE 4+ (NEGATIVE); UROBILINOGEN,URINE 1 MG/DL (0.0-1.0)
[2019-12-19 01:32] LABS: BLOOD UREA NITROGEN 3 mg/dL (7-18)
--- NOTE | 2019-12-19 01:50 | NUR ---
ER DISCHARGE NOTE: Patient is cleared to be discharged per ERMD, pt is aox4, on room air, with stable vital signs. accompanied by parent. pt was given dc and prescription instructions, pt was able to verbalize understanding, pt id band and iv site removed without complications. pt is able to ambulate with steady gait. pt took all belongings.
[2019-12-19 01:52] VITALS: BP 159/107
--- NOTE | 2019-12-19 02:07 | Diagnostic Imaging Report ---
EXAM: XR Chest, 1 View CLINICAL HISTORY: CP TECHNIQUE: Frontal view of the chest. COMPARISON: 03/15/19 FINDINGS: Unremarkable one view portable chest radiograph.
== END 2019-12-19 01:50 | disposition home or self-care (01) ==
LOC: EMR 00:47
DX: F10.129 Alcohol abuse with intoxication, unspecified (principal); R55 Syncope and collapse; R42 Dizziness and giddiness; G40.909 Epilepsy, unspecified, not intractable, without status epilepticus; M19.90 Unspecified osteoarthritis, unspecified site
CPT/HCPCS: 36415; 71045; 80053; 80307; 81003; 82248; 84484; 85025; 93005; 96360; G0480; J7030; Z7502; 99284

== ENCOUNTER 2020-01-02 10:24 | Emergency (ER) | payer OTHER ==
[~2020-01-02] VITALS: Ht 170.2 cm; Wt 72.6 kg
--- NOTE | 2020-01-02 10:40 | Emergency Room Report ---
History of Present Illness General Chief Complaint: abdominal pain Source: Patient Present Illness HPI Patient is a 29-year-old male presents after increased epigastric pain and vomiting. He reports having prior history of pancreatitis in the past. States he does not drink daily. Had been drinking wine last night. Prior seizures. Reports feeling increased shakiness as well as epigastric pain. Reports having vomiting which was nonbloody. Denies any bloody stools. He denies taking any medications regularly. Patient had multiple prior ER visits. Most recent was 2 weeks ago and was noted to have blood alcohol greater than 250 at the time. COVID-19 risk:Travel to affect: No Allergies: Coded Allergies: No Known Allergies (Unverified , 04/26/18) Patient History Past Medical History: see triage record Past Surgical History: none Reviewed Nursing Documentation: PMH: Agreed; PSxH: Agreed Nursing Documentation-PMH Hx Cardiac Problems: No Hx Cancer: No Hx Gastrointestinal Problems: Yes - pancreatitis, gastritis Hx Neurological Problems: Yes - ARHTRITIS Hx Seizures: Yes Review of Systems All Other Systems: negative except mentioned in HPI Physical Exam Sp02 EP Interpretation: reviewed, normal General Appearance: normal inspection, alert, GCS 15, moderate distress Head: atraumatic ENT: normal ENT inspection, hearing grossly normal, normal voice Neck: normal inspection, full range of motion, supple, no bony tend Respiratory: normal inspection, lungs clear, normal breath sounds, no respiratory distress, no retraction, no wheezing Cardiovascular #1: no edema, tachycardia Gastrointestinal: normal inspection, normal bowel sounds, non tender, soft, no guarding, no hernia Genitourinary: no CVA tenderness Musculoskeletal: normal inspection, back normal, normal range of motion Neurologic: alert, responsive, speech normal, other - tremulous Psychiatric: normal inspection, judgement/insight normal, mood/affect normal Medical Decision Making Diagnostic Impression: Primary Impression: Alcohol withdrawal Additional Impression: Gastritis ER Course Patient presented for increased generalized abdominal discomfort. Differential diagnosis include was not limited to dehydration, pancreatitis, alcohol withdrawal, anemia among others. He appears to be withdrawing from alcohol. EKG interpreted by me showed sinus tachycardia with a rate of [address] or T wave changes. Patient was given IV fluids as well as IV Ativan. He was noted to have improvement in his heart rate and blood pressure. He had some prior history of this pancreatitis and laboratory testing was ordered. The do not appear to be having any evidence of bleeding.Was noted to have improvement in heart rate and blood pressure. The patient is advised to follow up with primary care doctor in 1-2 days. Patient is advised to return if any worsening condition or if any changes in status that are concerning. This report is dictated with [employer] human resource officer software which may occasionally lead to discrepancies related to use of this software. Labs Test 01/02/20 10:45 White Blood Count 7.9 K/UL (4.8-10.8) Red Blood Count 5.37 M/UL (4.70-6.10) Hemoglobin 13.5 G/DL (14.2-18.0) Hematocrit 41.6 % (42.0-52.0) Mean Corpuscular Volume 77 FL (80-99) Mean Corpuscular Hemoglobin 25.1 PG (27.0-31.0) Mean Corpuscular Hemoglobin Concent 32.4 G/DL (32.0-36.0) Red Cell Distribution Width 18.8 % (11.6-14.8) Platelet Count 109 K/UL (150-450) Mean Platelet Volume 7.1 FL (6.5-10.1) Neutrophils (%) (Auto) 78.0 % (45.0-75.0) Lymphocytes (%) (Auto) 14.2 % (20.0-45.0) Monocytes (%) (Auto) 6.6 % (1.0-10.0) Eosinophils (%) (Auto) 0.0 % (0.0-3.0) Basophils (%) (Auto) 1.1 % (0.0-2.0) Sodium Level 144 MMOL/L (136-145) Potassium Level 3.9 MMOL/L (3.5-5.1) Chloride Level 101 MMOL/L (98-107) Carbon Dioxide Level 25 MMOL/L (21-32) Anion Gap 18 mmol/L (5-15) Blood Urea Nitrogen 11 mg/dL (7-18) Creatinine 0.9 MG/DL (0.55-1.30) Estimat Glomerular Filtration Rate > 60 mL/min (>60) Glucose Level 146 MG/DL (74-106) Calcium Level 9.1 MG/DL (8.5-10.1) Total Bilirubin 2.9 MG/DL (0.2-1.0) Direct Bilirubin 1.1 MG/DL (0.0-0.3) Aspartate Amino Transf (AST/SGOT) 140 U/L (15-37) Alanine Aminotransferase (ALT/SGPT) 98 U/L (12-78) Alkaline Phosphatase 383 U/L (46-116) Troponin I 0.000 ng/mL (0.000-0.056) Total Protein 9.0 G/DL (6.4-8.2) Albumin 4.4 G/DL (3.4-5.0) Globulin 4.6 g/dL Albumin/Globulin Ratio 1.0 (1.0-2.7) Lipase 138 U/L (73-393) EKG Diagnostic Results Rate: tachycardiac Rhythm: NSR ST Segments: no acute changes Rhythm Strip Diag. Results EP Interpretation: yes Rhythm: NSR, no PVC's, no ectopy, other - Rate of 160 Status: improved Disposition: HOME, SELF-CARE Condition: Stable Scripts Omeprazole (OMEPRAZOLE) 20 Mg Capsule.dr 20 MG ORAL DAILY, #30 CAP Prov: Gregorio Padgett MD 01/02/20 Lorazepam* (ATIVAN*) 1 Mg Tablet 1 MG ORAL THREE TIMES A DAY, #14 TAB Prov: Gregorio Padgett MD 01/02/20 Gregorio Padgett MD Jan 02, 2020 10:40
[2020-01-02] MEDS ORDERED: Thiamine HCl 100 MG in D5W 55 ML IVPB ONE (10:45)
[2020-01-02] MEDS ORDERED: LORazepam Inj 2mg/ml 1ml IV ONE (10:45)
--- NOTE | 2020-01-02 10:45 | NUR ---
ED Nurse Note: pt presents with tachyopnea and restlessness with bilateral hand crampibng. anxious affect noted . arrives from home with family for c/o abd pain and nausea. states last etoh consumed is yesterday evening. pt with diaphoresis noted. tolerates iv start and lab draw well. aware to obtain urine sample when able. flu swab obtained.
[2020-01-02 11:08] VITALS: BP 133/102
--- NOTE | 2020-01-02 11:13 | NUR ---
ED Nurse Note: pt relates feeling less pain and tachypnea has resolved. tolerating meds well.
[2020-01-02 11:17] LABS: ANION GAP 18 mmol/L (5-15); BLOOD UREA NITROGEN 11 mg/dL (7-18); CALCIUM 9.1 MG/DL (8.5-10.1); CARBON DIOXIDE 25 MMOL/L (21-32); CHLORIDE 101 MMOL/L (98-107); CREATININE 0.9 MG/DL (0.55-1.30); POTASSIUM 3.9 MMOL/L (3.5-5.1); SODIUM 144 MMOL/L (136-145)
[2020-01-02 11:19] LABS: BASOPHILS % (AUTO) 1.1 % (0.0-2.0); HEMATOCRIT 41.6 % (42.0-52.0); HEMOGLOBIN 13.5 G/DL (14.2-18.0); LYMPHOCYTES % (AUTO) 14.2 % (20.0-45.0); MEAN CORPUSCULAR VOLUME 77 FL (80-99); MONOCYTES % (AUTO) 6.6 % (1.0-10.0); PLATELET COUNT 109 K/UL (150-450); RED BLOOD COUNT 5.37 M/UL (4.70-6.10); RED CELL DISTRIBUTION WIDTH 18.8 % (11.6-14.8); WHITE BLOOD COUNT 7.9 K/UL (4.8-10.8)
[2020-01-02 11:27] LABS: ALANINE AMINOTRANSFERASE 98 U/L (12-78); ALBUMIN 4.4 G/DL (3.4-5.0); ALKALINE PHOSPHATASE 383 U/L (46-116); ASPARTATE AMINO TRANSFERASE 140 U/L (15-37); BILIRUBIN,TOTAL 2.9 MG/DL (0.2-1.0)
[2020-01-02 11:28] LABS: BILIRUBIN,DIRECT 1.1 MG/DL (0.0-0.3)
[2020-01-02] MEDS ORDERED: LORazepam 1mg tab ORAL ONE (11:45)
--- NOTE | 2020-01-02 11:55 | NUR ---
ED Nurse Note: pt noted to have slight hand tremors, meds given. pt relates unable to void at this time ivf infused well. no new s/s
[2020-01-02 12:00] VITALS: BP 145/90
[2020-01-02] MEDS ORDERED: OMEPRAZOLE20 M2 ORAL (12:14)
[2020-01-02] MEDS ORDERED: ATIVAN1 MG ORAL (12:14)
--- NOTE | 2020-01-02 12:49 | NUR ---
ED Nurse Note: Pt cleared by health care Provider for discharge. DC instructions/prescription was given and explained to pt and verbalized understanding of teachings. All medical devices such as ID band removed. Pt is AAO x4, ambulatory and left with all personal belongings. iv out intactly
[2020-01-02 12:50] VITALS: BP 137/78
== END 2020-01-02 12:52 | disposition home or self-care (01) ==
LOC: EMR 10:35
DX: F10.239 Alcohol dependence with withdrawal, unspecified (principal); K29.70 Gastritis, unspecified, without bleeding; G40.909 Epilepsy, unspecified, not intractable, without status epilepticus; M19.90 Unspecified osteoarthritis, unspecified site; R00.0 Tachycardia, unspecified
CPT/HCPCS: 36415; 80053; 82248; 83690; 84484; 85025; 86710; 93005; 96361; 96365; 96368; 96375; J7030; Z7502; 99284

== ENCOUNTER 2020-02-06 11:44 | Emergency (ER) | payer OTHER ==
[~2020-02-06] VITALS: Ht 172.7 cm; Wt 68.0 kg
[2020-02-06 11:35] VITALS: BP 151/71
[~2020-02-06 11:44] MED LIST changes: +OMEPRAZOLE20 M2 ORAL
[2020-02-06] MEDS ORDERED: Lidocaine 2% Visc 15ml soln ORAL ONE (12:00)
[2020-02-06] MEDS ORDERED: Mylanta II UD 30ml ORAL ONE (12:00)
[2020-02-06] MEDS ORDERED: LORazepam Inj 2mg/ml 1ml IV ONE (12:00)
[2020-02-06] MEDS ORDERED: Dicyclomine HCl 10mg/5ml oral soln ORAL ONE (12:00)
[2020-02-06] MEDS ORDERED: ONDANSETRON ODT4 MG BC (12:43)
[2020-02-06] MEDS ORDERED: LIBRIUM10 MG ORAL (12:43)
[2020-02-06] MEDS ORDERED: FAMOTIDINE20 MG ORAL (12:43)
[2020-02-06 12:54] VITALS: BP 145/75
--- NOTE | 2020-02-08 06:46 | Emergency Room Report ---
History of Present Illness General Chief Complaint: Nausea, Vomiting, and Diarrhea Source: Patient Present Illness HPI 29-year-old male presents the ED stating that he is shaking with nausea and vomiting. Started about 3 days ago. States that he stopped drinking alcohol about 6 days ago. Denies SI or HI. Denies drug use. Denies hearing voices. Denies fevers or chills. Denies runny nose or congestion. Denies any diarrhea. Denies any abdominal pain. No other aggravating relieving factors. Denies any other associated symptoms Allergies: Coded Allergies: No Known Allergies (Unverified , 04/26/18) COVID-19 Screening Contact w/high risk pt: No Recent Travel to affected area: No Experienced COVID-19 symptoms?: Yes COVID-19 symptoms experienced: Cough Patient History Past Medical History: other - pancreatitis Past Surgical History: none Pertinent Family History: none Social History: Reports: alcohol use; Denies: smoking, drug use Immunizations: UTD Reviewed Nursing Documentation: PMH: Agreed; PSxH: Agreed Nursing Documentation-PMH Past Medical History: No History, Except For Hx Cancer: No Hx Gastrointestinal Problems: Yes - pancreatitis, gastritis Hx Neurological Problems: Yes - ARHTRITIS Hx Seizures: Yes Review of Systems All Other Systems: negative except mentioned in HPI Physical Exam Vital Signs Date Time Temp Pulse Resp B/P (MAP) Pulse Ox O2 Delivery O2 Flow Rate FiO2 02/06/20 11:30 98.4 130 20 151/71 (97) 97 Room Air Sp02 EP Interpretation: reviewed, normal General Appearance: no apparent distress, alert, GCS 15, non-toxic, other - shaking Head: normocephalic, atraumatic Eyes: bilateral eye normal inspection, bilateral eye PERRL ENT: hearing grossly normal, normal pharynx, no angioedema, normal voice Neck: full range of motion, supple/symm/no masses Respiratory: chest non-tender, lungs clear, normal breath sounds, speaking full sentences Cardiovascular #1: regular rate, rhythm, no edema Cardiovascular #2: 2+ carotid (R), 2+ carotid (L), 2+ radial (R), 2+ radial (L) , 2+ dorsalis pedis (R), 2+ dorsalis pedis (L) Gastrointestinal: normal bowel sounds, non tender, soft, non-distended, no guarding, no rebound Rectal: deferred Genitourinary: normal inspection, no CVA tenderness Musculoskeletal: back normal, normal range of motion, gait/station normal, non- tender Neurologic: alert, motor strength/tone normal, oriented x3, sensory intact, responsive, speech normal Psychiatric: judgement/insight normal, memory normal, no suicidal/homicidal ideation, anxious Reflexes: 3+ bicep (R), 3+ bicep (L), 3+ tricep (R), 3+ tricep (L), 3+ knee (R) , 3+ knee (L) Skin: no rash Lymphatic: no adenopathy Medical Decision Making Diagnostic Impression: Primary Impression: Alcohol withdrawal Qualified Codes: F10.239 - Alcohol dependence with withdrawal, unspecified ER Course Hospital Course 29 yo M presents with shaking, vomiting. Chronic history of alcohol use Differential diagnoses include: Alcohol intoxication, drug abuse, opioid withdrawal, alcohol withdrawal, dehydration, drug seeking behavior Clinical course Patient placed in isolation tent. I wore full PPE. After initial history and physical I ordered Zofran, Ativan, Pepcid, GI cocktail On reassessment patient feels better. No longer tremulous. Vitals stable. I discussed with sister and father who are in ED. Acknowledge patient does have history of alcohol abuse. Will provide tox referrals. Safe for discharge for close outpatient follow-up i. I feel this is a highly complex case requiring extensive working including EKG/Rhythm strip, Xray/CT/US, Blood/urine lab work, repeat exams while in ED, and administration of strong opiates/narcotics for pain control, admission to hospital or close patient follow up. Diagnosis - alcohol withdrawal Stable and discharged to home with prescription for Librium, zofran, pepcid. Followup with PMD. Return to ED if symptoms recur or worsen Last Vital Signs Date Time Temp Pulse Resp B/P (MAP) Pulse Ox O2 Delivery O2 Flow Rate FiO2 02/06/20 12:54 98.0 100 20 145/75 99 Room Air Status: improved Disposition: HOME, SELF-CARE Condition: Stable Scripts Ondansetron Odt* (ZOFRAN ODT*) 4 Mg Tab.rapdis 4 MG BC EVERY 6 HOURS PRN for Nausea & Vomiting, #10 TAB 0 Refills Prov: Jason Sharp MD 02/06/20 Famotidine* (Pepcid 20mg tablet*) 20 Mg Tablet 20 MG ORAL DAILY, #30 TAB 0 Refills Prov: Jason Sharp MD 02/06/20 Chlordiazepoxide Hcl* (LIBRIUM*) 10 Mg Capsule 10 MG ORAL THREE TIMES A DAY, #15 CAP 0 Refills Prov: Jason Sharp MD 02/06/20 Referrals: [facility] Patient Instructions: Alcohol Withdrawal Jason Sharp MD Feb 08, 2020 06:46
== END 2020-02-06 12:54 | disposition home or self-care (01) ==
LOC: EDBD 11:44 → EMR 12:10
DX: F10.239 Alcohol dependence with withdrawal, unspecified (principal); M19.90 Unspecified osteoarthritis, unspecified site; G40.909 Epilepsy, unspecified, not intractable, without status epilepticus
CPT/HCPCS: 96372; 96374; J2405; Z7502; 99284

== ENCOUNTER 2020-06-21 13:11 | Emergency (ER) | payer OTHER ==
[~2020-06-21] VITALS: Ht 170.2 cm; Wt 80.7 kg
[~2020-06-21 13:11] MED LIST changes: +FAMOTIDINE20 MG ORAL; +ONDANSETRON ODT4 MG BC
[2020-06-21 13:29] VITALS: BP 139/91
--- NOTE | 2020-06-21 13:29 | NUR ---
ED Nurse Note: Pt from home and walked in due to abd pain with nausea /vomiting with diarrhea. PT also c/o chest tightness and coughing. Denies any fever. AAO x4 and ambulatory.
[2020-06-21] MEDS ORDERED: LORazepam Inj 2mg/ml 1ml IV ONE (13:45)
--- NOTE | 2020-06-21 13:51 | NUR ---
ED Nurse Note: Collected blood then sent to lab. Pt unable to provide urine specimen at this time. emergency spill response technician Chayo at the bed side for CXR.
[2020-06-21 13:57] LABS: BASOPHILS % (AUTO) 1.4 % (0.0-2.0); HEMATOCRIT 43.8 % (42.0-52.0); HEMOGLOBIN 13.7 G/DL (14.2-18.0); LYMPHOCYTES % (AUTO) 22.5 % (20.0-45.0); MEAN CORPUSCULAR VOLUME 79 FL (80-99); MONOCYTES % (AUTO) 5.7 % (1.0-10.0); NEUTROPHILS % (AUTO) 70.4 % (45.0-75.0); PLATELET COUNT 247 K/UL (150-450); RED BLOOD COUNT 5.57 M/UL (4.70-6.10); RED CELL DISTRIBUTION WIDTH 16.9 % (11.6-14.8); WHITE BLOOD COUNT 6.4 K/UL (4.8-10.8)
[2020-06-21 14:08] LABS: ANION GAP 16 mmol/L (5-15); BLOOD UREA NITROGEN 5 mg/dL (7-18); CALCIUM 8.7 MG/DL (8.5-10.1); CARBON DIOXIDE 24 MMOL/L (21-32); CHLORIDE 101 MMOL/L (98-107); CREATININE 0.9 MG/DL (0.55-1.30); POTASSIUM 3.6 MMOL/L (3.5-5.1); SODIUM 141 MMOL/L (136-145)
[2020-06-21 14:18] LABS: ALANINE AMINOTRANSFERASE 246 U/L (12-78); ALBUMIN 4.4 G/DL (3.4-5.0); ALBUMIN/GLOBULIN RATIO 0.9 (1.0-2.7); ALKALINE PHOSPHATASE 284 U/L (46-116); ASPARTATE AMINO TRANSFERASE 251 U/L (15-37); BILIRUBIN,TOTAL 1.9 MG/DL (0.2-1.0)
[2020-06-21 14:21] LABS: BILIRUBIN,DIRECT 0.9 MG/DL (0.0-0.3)
--- NOTE | 2020-06-21 14:30 | NUR ---
ED Nurse Note: RN asked patient multiple times for urine sample. Pt still unable to provide urine. IV fluids running.
--- NOTE | 2020-06-21 15:00 | NUR ---
ED Nurse Note: Collected urine then sent.
[2020-06-21 15:10] LABS: APPEARANCE,URINE CLEAR; BILIRUBIN, URINE NEGATIVE (NEGATIVE); COLOR,URINE BROWN; GLUCOSE, URINE (UA) NEGATIVE (NEGATIVE); KETONES,URINE NEGATIVE (NEGATIVE); LEUKOCYTE ESTERASE ,URINE NEGATIVE (NEGATIVE); NITRITE,URINE NEGATIVE (NEGATIVE); PH,URINE 7 (4.5-8.0); PROTEIN,URINE 4+ (NEGATIVE); UROBILINOGEN,URINE NORMAL MG/DL (0.0-1.0)
--- NOTE | 2020-06-21 16:10 | NUR ---
ED Nurse Note: Evelyne is resting on bed with no distress. Respirations are even and unlabored. NSR on surveillance system monitor at this time. IV fluids running and blankets were provided.
--- NOTE | 2020-06-21 16:23 | Emergency Room Report ---
History of Present Illness General Chief Complaint: Abdominal Pain Source: Patient Present Illness HPI 29-year-old male with history of alcohol abuse here complaining of 1 day of multiple bouts of nonbloody emesis and a dry cough after vomiting a lot. Complains of nausea and minimal abdominal pain, denies diarrhea, fever and chills, chest pain, shortness of breath, loss of taste or smell. Appears to be tachycardic upon arrival. Reports that his last drink was last night. Denies any drug use and tobacco smoke. Reports that he is very anxious at this time. Denies headache and dizziness. Denies hematuria and urinary symptoms. Abdomen is nontender to palpation. Denies hemoptysis or hematemesis Allergies: Coded Allergies: No Known Allergies (Unverified , 04/26/18) COVID-19 Screening Contact w/high risk pt: No Recent Travel to affected area: No Experienced COVID-19 symptoms?: Yes COVID-19 symptoms experienced: Cough COVID-19 Testing performed [employer]: No COVID-19 Screening: Negative COVID-19 Patient History Past Medical History: see triage record Past Surgical History: none Pertinent Family History: none Social History: Reports: alcohol use Immunizations: UTD Reviewed Nursing Documentation: PMH: Agreed; PSxH: Agreed Nursing Documentation-PMH Past Medical History: No History, Except For Hx Cardiac Problems: No Hx Cancer: No Hx Gastrointestinal Problems: Yes - pancreatitis, gastritis Hx Neurological Problems: Yes - ARHTRITIS Hx Seizures: Yes Review of Systems All Other Systems: negative except mentioned in HPI Physical Exam Vital Signs Date Time Temp Pulse Resp B/P (MAP) Pulse Ox O2 Delivery O2 Flow Rate FiO2 06/21/20 13:19 98.6 130 18 139/91 (107) 96 Room Air Sp02 EP Interpretation: reviewed, abnormal - Elevated heart rate General Appearance: no apparent distress, alert, GCS 15, non-toxic Head: normocephalic, atraumatic Eyes: bilateral eye normal inspection, bilateral eye PERRL ENT: hearing grossly normal, normal pharynx, no angioedema, normal voice Neck: full range of motion, supple/symm/no masses Respiratory: chest non-tender, lungs clear, normal breath sounds, no rhonchi, no respiratory distress, no retraction, speaking full sentences Cardiovascular #1: regular rate, rhythm, no edema, no murmur Gastrointestinal: normal bowel sounds, non tender, soft, no mass, no organomegaly, no peritonitis, no bruit, non-distended, no guarding, no hernia, no pulsatile mass, no rebound Rectal: deferred Genitourinary: no CVA tenderness Musculoskeletal: back normal, no calf tenderness Neurologic: alert, motor strength/tone normal, oriented x3, sensory intact, responsive, speech normal Psychiatric: memory normal, no suicidal/homicidal ideation, anxious Skin: no rash Lymphatic: no adenopathy Medical Decision Making PA Attestation All diagnosis and treatment plans were discussed and reviewed by my supervising physician Dr. Petty Diagnostic Impression: Primary Impression: Alcohol withdrawal Additional Impression: Abdominal pain ER Course 29-year-old male with history of alcohol abuse here complaining of 1 day of multiple bouts of nonbloody emesis and a dry cough after vomiting a lot. Complains of nausea and minimal abdominal pain, denies diarrhea, fever and chills, chest pain, shortness of breath, loss of taste or smell. Appears to be tachycardic upon arrival. Reports that his last drink was last night. Denies any drug use and tobacco smoke. Reports that he is very anxious at this time. Denies headache and dizziness. Denies hematuria and urinary symptoms. Abdomen is nontender to palpation. Denies hemoptysis and hematemesis Ddx considered but are not limited to: Alcohol intoxication with altered level of consciousness, alcohol intoxication causing pancreatitis, alcohol abuse, multi drug use and alcohol intoxication, alcohol withdrawal Vital signs: are WNL, pt. is afebrile H&PE are most consistent with: Alcohol withdrawal, abdominal pain secondary to alcohol intake ORDERS: CBC, CMP, UA, lipase, tox screen, troponin, EKG, chest x-ray, EtOH serum alcohol level, Zofran, Pepcid ER intervention: NS bolus, Ativan, Pepcid, Zofran DISCHARGE: At this time pt. is stable for d/c to home. Will provide printed patient care instructions, and any necessary prescriptions. Care plan and follow up instructions have been discussed with the patient prior to discharge. List of rehab places recommended patient, patient to follow primary doctor, take medication as directed, avoid using alcohol, September further evaluation or imaging needed patient noted to palpation and has no bloody emesis. Patient was advised to return to emergency room worsening symptoms. EKG Diagnostic Results Rate: tachycardiac Rhythm: other - Tachy ST Segments: no acute changes Other Impression No acute ST changes Chest X-Ray Diagnostic Results Chest X-Ray Diagnostic Results : Chest X-Ray Ordered: Yes # of Views/Limited/Complete: 1 View Indication: Other EP Interpretation: Yes PA Xray: Interpretation reviewed, by supervising MD, and agrees with findings. Interpretation: no consolidation, no effusion, no pneumothorax Impression: No acute disease Electronically Signed by: Marcy Hamilton PA-C Last Vital Signs Date Time Temp Pulse Resp B/P (MAP) Pulse Ox O2 Delivery O2 Flow Rate FiO2 06/21/20 13:53 130 18 139/91 99 06/21/20 13:29 98.6 Room Air Disposition: HOME, SELF-CARE Condition: Stable Scripts Famotidine* (Pepcid 20mg tablet*) 20 Mg Tablet 20 MG ORAL TWICE A DAY, #60 TAB 0 Refills Prov: Marcy Demarco 06/21/20 Ondansetron (Zofran) 4 Mg Tablet 4 MG ORAL Q6H PRN for Nausea & Vomiting, #14 TAB Prov: Marcy Demarco 06/21/20 Referrals: [facility],REFERRING (PCP) Patient Instructions: Abdominal Pain, Adult, Alcohol Withdrawal, [id number] Additional Instructions: Take medication as directed, follow-up with your primary care provider, avoid drinking alcohol, if worsening symptoms return to the emergency room Marcy Demarco Jun 21, 2020 16:23
[2020-06-21] MEDS ORDERED: FAMOTIDINE20 MG ORAL (16:24)
[2020-06-21] MEDS ORDERED: ZOFRAN4 M1 ORAL (16:24)
[2020-06-21 16:40] VITALS: BP 132/83
--- NOTE | 2020-06-21 17:04 | Diagnostic Imaging Report ---
Indication: Cough Technique: One view of the chest Comparison: 12/19/2019 Findings: Lungs and pleural spaces are clear. Heart size is normal. No significant change Impression: No acute process
== END 2020-06-21 16:40 | disposition home or self-care (01) ==
LOC: EMR 13:44
DX: F10.239 Alcohol dependence with withdrawal, unspecified (principal); R10.9 Unspecified abdominal pain; G40.909 Epilepsy, unspecified, not intractable, without status epilepticus; Y90.7 Blood alcohol level of 200-239 mg/100 ml
CPT/HCPCS: 36415; 71045; 80053; 80307; 81003; 82248; 83690; 84425; 84484; 85025; 93005; 96361; 96374; 96375; G0480; J2405; J7030; S0028; Z7502; 99284

== ENCOUNTER 2020-07-21 21:34 | Emergency (ER) | payer OTHER ==
[~2020-07-21] VITALS: Ht 170.2 cm; Wt 79.4 kg
[2020-07-21 21:45] VITALS: BP 139/80
--- NOTE | 2020-07-21 21:45 | NUR ---
ED Nurse Note: walked in to ed c/o epigastric pain 8/ onset yesterday with emesis and nausea. hx pancreatitis. denies fever or chills. vss, nad, aaox4, ambulatory, on monitor, ermd at bedside, blood and urine collected and sent to lab.
[2020-07-21 22:07] LABS: BASOPHILS % (AUTO) 1.3 % (0.0-2.0); HEMOGLOBIN 13.6 G/DL (14.2-18.0); LYMPHOCYTES % (AUTO) 27.5 % (20.0-45.0); MEAN CORPUSCULAR VOLUME 80 FL (80-99); MONOCYTES % (AUTO) 8.1 % (1.0-10.0); NEUTROPHILS % (AUTO) 63.1 % (45.0-75.0); PLATELET COUNT 123 K/UL (150-450); RED BLOOD COUNT 5.39 M/UL (4.70-6.10); RED CELL DISTRIBUTION WIDTH 19.4 % (11.6-14.8); WHITE BLOOD COUNT 5.2 K/UL (4.8-10.8)
[2020-07-21 22:17] LABS: APPEARANCE,URINE CLEAR; BILIRUBIN, URINE 2+ (NEGATIVE); GLUCOSE, URINE (UA) NEGATIVE (NEGATIVE); KETONES,URINE 3+ (NEGATIVE); LEUKOCYTE ESTERASE ,URINE 1+ (NEGATIVE); NITRITE,URINE NEGATIVE (NEGATIVE); PH,URINE 8 (4.5-8.0); PROTEIN,URINE 4+ (NEGATIVE); UROBILINOGEN,URINE 4 MG/DL (0.0-1.0)
[2020-07-21 22:17] LABS: ANION GAP 15 mmol/L (5-15); BLOOD UREA NITROGEN 6 mg/dL (7-18); CALCIUM 8.9 MG/DL (8.5-10.1); CARBON DIOXIDE 27 MMOL/L (21-32); CHLORIDE 99 MMOL/L (98-107); CREATININE 1.1 MG/DL (0.55-1.30); POTASSIUM 3.4 MMOL/L (3.5-5.1); SODIUM 141 MMOL/L (136-145)
[2020-07-21 22:22] LABS: COLOR,URINE AMBER
[2020-07-21 22:28] LABS: ALANINE AMINOTRANSFERASE 114 U/L (12-78); ALBUMIN 4.2 G/DL (3.4-5.0); ALBUMIN/GLOBULIN RATIO 0.9 (1.0-2.7); ALKALINE PHOSPHATASE 323 U/L (46-116); ASPARTATE AMINO TRANSFERASE 313 U/L (15-37); BILIRUBIN,TOTAL 4.1 MG/DL (0.2-1.0)
[2020-07-21 22:29] LABS: BILIRUBIN,DIRECT 2.4 MG/DL (0.0-0.3)
[2020-07-21] MEDS ORDERED: LORazepam Inj 2mg/ml 1ml IV ONE (22:45)
--- NOTE | 2020-07-21 22:45 | NUR ---
ED Nurse Note: ERMD at bedside for US
[2020-07-21 22:51] VITALS: BP 127/79
[2020-07-21] MEDS ORDERED: RANITIDINE HCL150 MG ORAL (22:52)
[2020-07-21] MEDS ORDERED: OMEPRAZOLE40 M1 ORAL (22:52)
[2020-07-21] MEDS ORDERED: DOXYCYCLINE MO100 MG ORAL (22:52)
--- NOTE | 2020-07-21 22:53 | Emergency Room Report ---
History of Present Illness General Chief Complaint: Abdominal Pain Source: Patient Present Illness HPI Lipase is within normal limits. There is no leukocytosis. Patient is afebrile. Doubt 29-year-old male with past medical history of previous alcoholism (daily drinker from age 17 to one month ago), alcoholic cirrhosis, portal hypertension, cholelithiasis presents to the emergency department with complaint of epigastric abdominal pain x1 day. He states that he has been sober for the past 1 month because he is trying to quit drinking. Yesterday he took omeprazole prescribed from his doctor but this gave him anxiety causing him to vomit once. He states it feels like acid. The pain is nonradiating. Does not involve his chest or right upper quadrant. He denies fevers, chills, melena, hematochezia, hematemesis, hematuria, dysuria or changes to his diet. He is able to tolerate a normal diet The patient's symptoms were gradual onset, severity was moderate, duration since 1 day. Quality: Acid Past medical history: Previous alcoholism, portal hypertension, cholelithiasis, fatty liver Past surgical history: Denies Smoking: Denies Alcohol use: Previous daily drinker from age 17 to 1-month ago Drug use: Denies Review of systems: CONST: No fevers or chills, No night sweats PULMONARY: No productive cough, No shortness of breath CARDIAC: No chest pain, No palpitations GI: ++ vomiting, No diarrhea , No melena_or_BRBPR : No dysuria, No hematuria, No discharge NEURO: No new_focal_weakness_or_numbness, No confusion, No vision changes 14 point Review of Systems is otherwise negative except per HPI Physical Exam: GENERAL: Awake_alert_ nontoxic, no acute distress Spo2 94% on RA -normal EYES: Extraocular muscles are intact. Conjunctivae clear. Lids without swelling ENT: External nose and ear normal_in_appearance. Oropharynx clear. Head_atraumatic, Moist_oral_mucosa NECK: No JVD. No meningismus. No thyromegaly. Supple. Trachea midline RESP: Normal respiratory effort. Symmetric rise. No stridor. Clear_to_auscultation_No_rales_No_wheezes CARDIAC: Tachycardic and regular rhytm. No_significant pedal edema. Plus 2 out of 4 DP and PT pulse laterally. Plus 2 out of 4 radial pulse bilaterally ABDOMEN: Soft. Nondistended. Nontender_No_rebound_or_guarding. Negative Victor sign. Negative Rovsing sign. Negative obturator sign Minimal epigastric tenderness to palpation with deep palpation MSK: Normal muscle tone, without rigidity. Extremities without asymmetric deformity or swelling. SKIN: Warm and dry. No visible cyanosis or pallor NEUROLOGIC: Alert, oriented x3. Motor_and_sensation_grossly_intact. No truncal ataxia. Gait_normal Psych: Normal mood and affect, normal judgment and insight - COORDINATION OF CARE Case was discussed with: Patient Any labs and imaging that were ordered were interpreted as part of the medical decision making: I did review patient's frequent previous ER visitations including CT scans, HIDA scan, and right upper quadrant ultrasound Medical Decision Making/Plan: Differential diagnosis includes cholecystitis, choledocholithiasis, hepatitis, small bowel obstruction, volvulus, AAA, pancreatitis, atypical appendicitis, gastroparesis, gastritis, peptic ulcer disease, among others. Patient is well appearing with stable vital signs. Abdominal exam is non peritoneal with no guarding or rebound. Negative Victor sign. I did perform a bedside right upper quadrant ultrasound. It demonstrated negative sonographic Victor sign. Gallbladder is nondistended. There are a few stones but no pericholecystic fluid or gallbladder wall thickening. Patient was informed of this finding and to follow up with PMD for referral to [facility] [place] for elective referral to lap cholecystectomy. Labs show chronic transaminitis, likely 2/2 hepatic congestion from his previous heavy alcohol use. Lipase is WNL. No leukocytosis. Pt is afebrile. No acute cholecystitis. ++UTI ED intervention included IVFs, zofran, and ativan with relief of symptoms. Tachycardia resolved. Potassium was repleted. Symptoms are likely 2/2 PUD vs alcoholic gastritis. The patient denies any bloody stool and has no pain out of proportion to exam, and no significant risk factors for mesenteric ischemia such as atrial fibrillation or severe PAD/PVD (peripheral arterial / vascular disease), thus definitive workup to rule out mesenteric ischemia was not pursued. Patient is afebrile, without any significant tenderness in the RUQ, and a negative [place] sign. The patients presentation does not appear to be consistent with acute cholecystitis and thus definitive imaging to rule it out was not pursued. The patient has no significant risk factors for AAA (abdominal aortic aneurysm) such as age over 50 with history of hypertension, connective tissue disorder, or 1st degree relative with AAA. the patient has normal dorsalis pedis pulses, no radiation of pain to the back, and no pulsatile mass felt on exam. The patients profile was overall low risk for AAA and definitive workup was not pursued. The patients symptoms are not consistent with ACS (acute coronary syndrome), symptoms are not exertional. Over the course of their emergency department stay, serial abdominal exams were performed and reassuring without any peritoneal signs. The patients abdominal imaging did not show any evidence of any emergent process or condition requiring immediate surgery. The patients symptoms significantly improved, exam upon discharge revealed a benign abdomen, and tolerating oral fluids. The patient appears stable for discharge to follow up with their primary medical doctor in 1-2 days, and understand to return to the ED immediately if symptoms change or worsen. 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 Nursing Documentation-PMH Hx Cancer: No Hx Gastrointestinal Problems: Yes - pancreatitis, gastritis Hx Neurological Problems: Yes - ARHTRITIS Hx Seizures: Yes Physical Exam Vital Signs Date Time Temp Pulse Resp B/P (MAP) Pulse Ox O2 Delivery O2 Flow Rate FiO2 07/21/20 21:44 98.2 117 20 137/83 (101) 94 Room Air 07/21/20 21:45 99 Medical Decision Making Diagnostic Impression: Primary Impression: Abdominal pain Additional Impressions: Alcoholic cirrhosis Gallstones UTI (urinary tract infection) Last Vital Signs Date Time Temp Pulse Resp B/P (MAP) Pulse Ox O2 Delivery O2 Flow Rate FiO2 07/21/20 22:46 89 18 127/79 99 07/21/20 21:45 98.4 Room Air 07/21/20 21:45 99 Disposition: HOME, SELF-CARE Admit Decision Time: 23:00 Condition: Stable Scripts Doxycycline Monohydrate* (DOXYCYCLINE MONOHYDRATE*) 100 Mg Capsule 100 MG ORAL Q12H for 14 Days, #28 CAP 0 Refills Prov: Breana Petty D.OTavon 10/2/20 Ranitidine Hcl* (ZANTAC) 150 Mg Tablet 150 MG ORAL TWICE A DAY for Gerd for 15 Days, #30 TAB Prov: Breana Petty D.O. 07/21/20 Omeprazole (OMEPRAZOLE) 40 Mg Capsule.dr 40 MG ORAL DAILY for Gerd for 30 Days, #30 CAP Prov: Breana Petty D.O. 07/21/20 Referrals: [facility],REFERRING (PCP) Patient Instructions: Abdominal Pain, Adult, Fatty Liver, Low-Fat Diet for Pancreatitis or Gallbladder Conditions Additional Instructions: Instructions for patient/operating room surgical technician: Follow up with your physician in 1 to 2 days for repeat abdominal examination. You are found to have gallstones on your bedside ultrasound. There is no indication for infection of your gallbladder at this time, however you may want to follow-up with your primary doctor for referral to a general surgeon for elective removal of your gallbladder Follow-up with your doctor sooner if your condition requires a more timely clinical reevaluation. Return to the emergency department immediately if you feel that your condition is worsening or if you have any new or concerning symptoms. Review your discharge instructions and take any prescriptions given as instructed. [facility] PROVIDES FREE OR LOW-COST HEALTH SERVICES TO PEOPLE WHO CAN SHOW PROOF THAT THEY LIVE IN [facility] [place] [facility]. TO FIND MORE CLINICS PARTNERED WITH THE [facility] TO PROVIDE SERVICE, PLEASE CALL . Breana Petty D.O. Jul 21, 2020 22:53
[2020-07-21 23:01] VITALS: BP 127/79
== END 2020-07-21 23:00 | disposition home or self-care (01) ==
LOC: EMR 22:01
DX: K70.30 Alcoholic cirrhosis of liver without ascites (principal); K80.80 Other cholelithiasis without obstruction; N39.0 Urinary tract infection, site not specified; R74.01 Elevation of levels of liver transaminase levels; R00.0 Tachycardia, unspecified; M19.90 Unspecified osteoarthritis, unspecified site; G40.909 Epilepsy, unspecified, not intractable, without status epilepticus; R10.13 Epigastric pain
CPT/HCPCS: 36415; 80053; 81003; 82248; 83690; 85025; 96361; 96374; 96375; J2405; J7030; Z7502; 99284; J8499

== ENCOUNTER 2020-08-11 19:54 | Inpatient (IN) | payer OTHER ==
[~2020-08-11] VITALS: Ht 170.2 cm; Wt 77.9 kg
[~2020-08-11 19:54] MED LIST changes: +DOXYCYCLINE MO100 MG ORAL; +OMEPRAZOLE40 M1 ORAL; +RANITIDINE HCL150 MG ORAL
[2020-08-11 20:14] VITALS: BP 144/90
--- NOTE | 2020-08-11 20:14 | NUR ---
ED Nurse Note: Pt walked in to ED from home c/o nausea and vomiting x4 days. Pt also reports feeling of bloatedness and pressure to his stomach. Noted with yellowish sclera. Has hx of alcohol abuse. Per pt he has been taking Omeprazole and pepcide daily but not effective. AAOX4, verbally responsive. No SOB, on room air. ERMD at bedside.
[2020-08-11] MEDS ORDERED: Metoclopramide 10mg/2ml Inj IVP ONE (20:30)
--- NOTE | 2020-08-11 20:32 | Emergency Room Report ---
History of Present Illness General Chief Complaint: Nausea Source: Patient Present Illness HPI Patient is a 30-year-old male who presents for increased nausea and vomiting. Reports of a onset of symptoms over the past few days. Prior history of alcohol abuse but states he has not drank in Close to a month. Had some increased jaundice. Denies any fever. Denies any recent bleeding episodes. Has been taking omeprazole without much improvement. 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 COVID-19 Screening: Negative COVID-19 COVID-19 Testing Source: 05/2020 Patient History Past Medical History: see triage record Reviewed Nursing Documentation: PMH: Agreed; PSxH: Agreed Nursing Documentation-PM Past Medical History: No History, Except For Hx Cancer: No Hx Gastrointestinal Problems: Yes - pancreatitis, gastritis, gall stones Hx Neurological Problems: Yes - ARHTRITIS Hx Seizures: Yes Review of Systems All Other Systems: negative except mentioned in HPI Physical Exam Vital Signs Date Time Temp Pulse Resp B/P (MAP) Pulse Ox O2 Delivery O2 Flow Rate FiO2 08/11/20 19:57 97.5 116 22 144/90 (108) 96 Room Air Sp02 EP Interpretation: reviewed, normal General Appearance: normal inspection, well appearing, no apparent distress, alert, GCS 15 Head: atraumatic ENT: normal ENT inspection, hearing grossly normal, normal voice Neck: normal inspection, full range of motion, supple, no bony tend Respiratory: normal inspection, lungs clear, normal breath sounds, no respiratory distress, no retraction, no wheezing Cardiovascular #1: regular rate, rhythm, no edema Gastrointestinal: normal inspection, normal bowel sounds, non tender, soft, no guarding, no hernia Genitourinary: no CVA tenderness Musculoskeletal: normal inspection, back normal, normal range of motion Neurologic: alert, responsive, speech normal, normal inspection Psychiatric: normal inspection, judgement/insight normal, mood/affect normal Medical Decision Making Diagnostic Impression: Primary Impression: Alcohol intoxication Additional Impressions: Pancreatitis, acute Hyperbilirubinemia ER Course Patient presented for abdominal pain. Differential diagnosis includes is not limited to alcohol intoxication, pancreatitis, alcohol withdrawal, cholecystitis, gastroenteritis among others. Patient has some prior history of alcohol abuse. Patient denies alcohol use however alcohol was found in his system. Patient's lipase noted to be markedly elevated. Started on IV fluids. He was noted to have improvement in symptoms after IV hydration.Patient had previous CT imaging which showed fatty liver with some gallstones. Patient's white blood count was 12,000, hemoglobin appear to be adequate. Patient was discussed with from [facility] and patient will be admitted for further management of pancreatitis. Ultrasound was ordered is currently pending. Labs Test 08/11/20 20:40 08/11/20 21:05 White Blood Count 12.2 K/UL (4.8-10.8) Red Blood Count 5.15 M/UL (4.70-6.10) Hemoglobin 13.2 G/DL (14.2-18.0) Hematocrit 41.9 % (42.0-52.0) Mean Corpuscular Volume 81 FL (80-99) Mean Corpuscular Hemoglobin 25.7 PG (27.0-31.0) Mean Corpuscular Hemoglobin Concent 31.6 G/DL (32.0-36.0) Red Cell Distribution Width 20.5 % (11.6-14.8) Platelet Count 84 K/UL (150-450) Mean Platelet Volume 8.7 FL (6.5-10.1) Neutrophils (%) (Auto) % (45.0-75.0) Lymphocytes (%) (Auto) % (20.0-45.0) Monocytes (%) (Auto) % (1.0-10.0) Eosinophils (%) (Auto) % (0.0-3.0) Basophils (%) (Auto) % (0.0-2.0) Differential Total Cells Counted 100 Neutrophils % (Manual) 72 % (45-75) Lymphocytes % (Manual) 20 % (20-45) Monocytes % (Manual) 7 % (1-10) Eosinophils % (Manual) 0 % (0-3) Basophils % (Manual) 1 % (0-2) Band Neutrophils 0 % (0-8) Platelet Estimate Decreased Platelet Morphology Normal Anisocytosis 2+ Sodium Level 134 MMOL/L (136-145) Potassium Level 3.5 MMOL/L (3.5-5.1) Chloride Level 94 MMOL/L (98-107) Carbon Dioxide Level 23 MMOL/L (21-32) Anion Gap 17 mmol/L (5-15) Blood Urea Nitrogen 6 mg/dL (7-18) Creatinine 1.0 MG/DL (0.55-1.30) Estimat Glomerular Filtration Rate > 60 mL/min (>60) Glucose Level 107 MG/DL (74-106) Calcium Level 8.6 MG/DL (8.5-10.1) Total Bilirubin 6.4 MG/DL (0.2-1.0) Direct Bilirubin 4.8 MG/DL (0.0-0.3) Aspartate Amino Transf (AST/SGOT) 387 U/L (15-37) Alanine Aminotransferase (ALT/SGPT) 112 U/L (12-78) Alkaline Phosphatase 278 U/L (46-116) Total Protein 7.4 G/DL (6.4-8.2) Albumin 3.5 G/DL (3.4-5.0) Globulin 3.9 g/dL Albumin/Globulin Ratio 0.9 (1.0-2.7) Lipase 2263 U/L (73-393) Serum Alcohol 187 mg/dL Urine Color Charlene Urine Appearance Slightly cloudy Urine pH 6.5 (4.5-8.0) Urine Specific [place] 1.020 (1.005-1.035) Urine Protein 4+ (NEGATIVE) Urine Glucose (UA) Negative (NEGATIVE) Urine Ketones 3+ (NEGATIVE) Urine Blood 4+ (NEGATIVE) Urine Nitrite Negative (NEGATIVE) Urine Bilirubin 3+ (NEGATIVE) Urine Ictotest Positive (NEGATIVE) Urine Urobilinogen 1 MG/DL (0.0-1.0) Urine Leukocyte Esterase 1+ (NEGATIVE) Urine RBC 5-10 /HPF (0 - 0) Urine WBC 0-2 /HPF (0 - 0) Urine Squamous Epithelial Cells None /LPF (NONE/OCC) Urine Bacteria Few /HPF (NONE) Urine Hyaline Casts 0-2 /LPF (NONE) Urine Waxy Casts 0-2 /LPF (NONE) Urine Mucus Many /LPF (NONE/OCC) Last Vital Signs Date Time Temp Pulse Resp B/P (MAP) Pulse Ox O2 Delivery O2 Flow Rate FiO2 08/11/20 20:14 97.5 116 22 144/90 96 Room Air Status: unchanged Disposition: ADMITTED INPATIENT Condition: Stable Gregorio Padgett MD Aug 11, 2020 20:32
--- NOTE | 2020-08-11 20:40 | NUR ---
ED Nurse Note: IV line established. Blood specimen collected and sent to lab.
[2020-08-11] MEDS ORDERED: D5NS 1,000 ML IV SCH (20:45)
--- NOTE | 2020-08-11 21:05 | NUR ---
ED Nurse Note: Urine sent to lab.
[2020-08-11 21:24] LABS: HEMATOCRIT 41.9 % (42.0-52.0); HEMOGLOBIN 13.2 G/DL (14.2-18.0); MEAN CORPUSCULAR VOLUME 81 FL (80-99); PLATELET COUNT 84 K/UL (150-450); RED BLOOD COUNT 5.15 M/UL (4.70-6.10); RED CELL DISTRIBUTION WIDTH 20.5 % (11.6-14.8); WHITE BLOOD COUNT 12.2 K/UL (4.8-10.8)
[2020-08-11 21:35] LABS: ANION GAP 17 mmol/L (5-15); BLOOD UREA NITROGEN 6 mg/dL (7-18); CALCIUM 8.6 MG/DL (8.5-10.1); CARBON DIOXIDE 23 MMOL/L (21-32); CHLORIDE 94 MMOL/L (98-107); POTASSIUM 3.5 MMOL/L (3.5-5.1); SODIUM 134 MMOL/L (136-145)
[2020-08-11 21:37] LABS: APPEARANCE,URINE SLIGHTLY CLOUDY; BILIRUBIN, URINE 3+ (NEGATIVE); GLUCOSE, URINE (UA) NEGATIVE (NEGATIVE); KETONES,URINE 3+ (NEGATIVE); LEUKOCYTE ESTERASE ,URINE 1+ (NEGATIVE); NITRITE,URINE NEGATIVE (NEGATIVE); PH,URINE 6.5 (4.5-8.0); PROTEIN,URINE 4+ (NEGATIVE); UROBILINOGEN,URINE 1 MG/DL (0.0-1.0)
[2020-08-11 21:46] LABS: ALANINE AMINOTRANSFERASE 112 U/L (12-78); ALBUMIN 3.5 G/DL (3.4-5.0); ALBUMIN/GLOBULIN RATIO 0.9 (1.0-2.7); ALKALINE PHOSPHATASE 278 U/L (46-116); ASPARTATE AMINO TRANSFERASE 387 U/L (15-37); BILIRUBIN,TOTAL 6.4 MG/DL (0.2-1.0)
[2020-08-11 21:48] LABS: BILIRUBIN,DIRECT 4.8 MG/DL (0.0-0.3)
[2020-08-11 21:55] LABS: COLOR,URINE AMBER
[2020-08-11] MEDS ORDERED: FAMOTIDINE20 MG ORAL (22:22)
[2020-08-11 22:36] VITALS: BP 120/80
--- NOTE | 2020-08-11 23:03 | NUR ---
HAND-OFF: Report given to Richelle PALACIOS.
--- NOTE | 2020-08-11 23:04 | NUR ---
ED Nurse Note: US at bedside
--- NOTE | 2020-08-11 23:05 | NUR ---
ED Nurse Note: pt resting in bed, no ss of distress noted. will continue to monitor.
--- NOTE | 2020-08-12 00:16 | Diagnostic Imaging Report ---
EXAM: US Abdomen Complete CLINICAL HISTORY: ABD PAIN TECHNIQUE: Real-time ultrasound of the abdomen with image documentation. COMPARISON: No relevant prior studies available. FINDINGS: Liver: The liver measures 16.9 cm. There is diffuse decreased echogenicity of the liver as compared to adjacent renal parenchyma. No intrahepatic bile duct dilation. Gallbladder: The gallbladder wall measures 2 mm. 5 mm gallbladder polyp. Small layering density within the gallbladder suggestive of gallbladder sludge. No gallstones. Common bile duct: The common bile duct measures 5 mm. No stones. No dilation. Pancreas: Unremarkable as visualized. Kidneys: The right kidney measures 10.5 x 5.9 x 5.6 cm. The left kidney measures 9.6 x 5.3 x 5.5 cm. Spleen: The spleen measures 11.3 cm. Aorta: Unremarkable. No aneurysm. Inferior vena cava: Unremarkable. IMPRESSION: 1. Mild gallbladder sludge without evidence of gallstone or cholecystitis. 2. 5 mm gallbladder polyp. Recommend follow-up ultrasound in one year. 3. Hepatic steatosis.
--- NOTE | 2020-08-12 01:06 | NUR ---
ED Nurse Note: report given to Loren, Rn on MS unit.
--- NOTE | 2020-08-12 01:15 | NUR ---
ER DISCHARGE NOTE: Patient is cleared to be discharged to MS unit per ERMD, pt is aox4, 97% on room air, with stable vital signs. pt was able to verbalize understanding. pt is able to ambulate with steady gait. pt took all belongings. report given to PHILIP Pimentel on Ms unit. 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
--- NOTE | 2020-08-12 02:00 | NUR ---
NURSE NOTES: PATIENT WAS SAFELY TRANSFERRED TO UNIT FROM ER VIA [facility]. REPORT RECEIVED FROM PHILIP DIAS. PATIENT IS AWAKE, AAOX4, ON ROOM AIR, NO ACUTE RESPIRATORY DISTRESS NOTED. PATIENT C/O MILD DISCOMFORT IN LOWER ABDOMEN. DENIES SOB, DENIES CHEST PAIN. PIV ON RIGHT AC INTACT AND PATENT. SKIN IS INTACT. CONTACTED AND RECEIVED ADMISSIONS ORDERS FROM DR. MCLEOD. BED IS LOCKED AND LOW, BED ALARMS ACTIVE, SIDE RAILS UP X2 AND CALL LIGHT IS WITHIN REACH. WILL CONTINUE WITH PLAN OF CARE.
[2020-08-12] MEDS: LR 1000ml 1,000 ML IV SCH ×2 (03:03→13:19)
[2020-08-12 04:00] VITALS: BP 138/85
[2020-08-12] MEDS: Hydromorphone 0.5mg/0.5ml inj IVP PRN ×2 (04:23→08:28)
--- NOTE | 2020-08-12 07:18 | NUR ---
NURSE HAND-OFF: Important Events on Shift: ADMISSION, PAIN MANAGEMENT Patient Status: STABLE Diet: NPO Pending Orders: EKG Pending Results/Labs: CBC,CMP, C-REACTIVE Pending MD notification: N/A Latest Vital Signs: Temperature 99.1 , Pulse 91 , B/P 138 /85 , Respiratory Rate 17 , O2 SAT 100 , Room Air, O2 Flow Rate . Vital Sign Comment: STABLE Latest Qureshi Fall Score: 20 Fall Risk: Low Risk Safety Measures: Call light Within Reach, Bed Alarm Zone 1, Side Rails Side Rails x2, Bed position Low and Locked. Fall Precautions: Yellow Socks Yellow Gown Door Sign Patient Fall Education Report given to PHILIP CHRISTIANSON.
--- NOTE | 2020-08-12 07:39 | NUR ---
NURSE NOTES: receives am report, pt is in the bed awake and alert. respiration is even and unlabored. c/o abd pain, rates pain 5/10. pain medication is not due at this time. pt is npo. RAC iv inplace, fluid running as scheduled. no acute distress noted. call light is placed within reach, will follow plan of care.
[2020-08-12 07:45] LABS: HEMATOCRIT 36.6 % (42.0-52.0); HEMOGLOBIN 11.3 G/DL (14.2-18.0); MEAN CORPUSCULAR VOLUME 82 FL (80-99); PLATELET COUNT 65 K/UL (150-450); RED BLOOD COUNT 4.46 M/UL (4.70-6.10); RED CELL DISTRIBUTION WIDTH 19.7 % (11.6-14.8)
[2020-08-12 07:53] LABS: ANION GAP 11 mmol/L (5-15); BLOOD UREA NITROGEN 7 mg/dL (7-18); CALCIUM 7.9 MG/DL (8.5-10.1); CARBON DIOXIDE 24 MMOL/L (21-32); CHLORIDE 98 MMOL/L (98-107); CREATININE 0.8 MG/DL (0.55-1.30); POTASSIUM 3.8 MMOL/L (3.5-5.1); SODIUM 133 MMOL/L (136-145)
[2020-08-12 08:00] VITALS: BP 157/98
--- NOTE | 2020-08-12 08:28 | NUR ---
NURSE NOTES: Noted pt with seizure activities; both upper and lower extremities jerking at this time. seizure lasted for one minute and twenty seconds. turn pt to the side to prevent aspiration, elevated HOB. placed pt on 02 @2l/min via nc. pt fell asleep after episodes of seizures. respiration is even and unlabored. Paged Dr. Jaffe. RN remains in room to monitor pt.
[2020-08-12 08:56] LABS: ALANINE AMINOTRANSFERASE 95 U/L (12-78); ALBUMIN 3.2 G/DL (3.4-5.0); ALBUMIN/GLOBULIN RATIO 0.8 (1.0-2.7); ALKALINE PHOSPHATASE 230 U/L (46-116); ANION GAP 12 mmol/L (5-15); ASPARTATE AMINO TRANSFERASE 300 U/L (15-37); BLOOD UREA NITROGEN 9 mg/dL (7-18); CALCIUM 7.9 MG/DL (8.5-10.1); CARBON DIOXIDE 23 MMOL/L (21-32); CHLORIDE 99 MMOL/L (98-107); CREATININE 0.9 MG/DL (0.55-1.30); POTASSIUM 3.8 MMOL/L (3.5-5.1); SODIUM 134 MMOL/L (136-145)
[2020-08-12] MEDS ORDERED: Heparin 5000 units/ml inj SUBQ SCH (09:00)
[2020-08-12 09:16] LABS: BILIRUBIN,DIRECT 4.5 MG/DL (0.0-0.3)
[2020-08-12] MEDS ORDERED: LORazepam Inj 2mg/ml 1ml IV SCH (09:30)
--- NOTE | 2020-08-12 09:32 | NUR ---
NURSE NOTES:received verbal order from Dr. Hernandez (from [facility]) to put in order for Ativan 2 mg IV x1 for seizures. order noted and carried out.
[2020-08-12] MEDS ORDERED: Omnipaque-300 100ml vial INJ PRN (09:45)
[2020-08-12] MEDS ORDERED: LORazepam Inj 2mg/ml 1ml IV PRN (09:46)
--- NOTE | 2020-08-12 10:33 | Diagnostic Imaging Report ---
EXAM: CT Head Without Intravenous Contrast CLINICAL HISTORY: ABD PAIN TECHNIQUE: Axial computed tomography images of the head/brain without intravenous contrast. CTDI is 53.4 mGy and DLP is 1018.8 mGy-cm. One or more of the following dose reduction techniques were used: automated exposure control, adjustment of the mA and/or kV according to patient size, use of iterative reconstruction technique. COMPARISON: CT head on 12/18/2019 FINDINGS: Brain: No acute infarct or hemorrhage. No extra-axial fluid collection. No mass effect or midline shift. Ventricles and sulci: Normal. No ventriculomegaly or intraventricular hemorrhage. Bones: Normal. No bony lesion or acute fracture. Subcutaneous tissues: Normal. Sinuses: Normal. No air-fluid levels or mucosal thickening. Mastoid air cells: Normal. Orbits: Grossly unremarkable. IMPRESSION: No acute intracranial abnormality.
[2020-08-12] MEDS ORDERED: Calcium Gluconate 1gm/50ml 50 ML IVPB ONE (11:00)
[2020-08-12] MEDS ORDERED: Albuterol/Ipratropium 3ml neb HHN PRN (11:30)
[2020-08-12] MEDS ORDERED: Mylanta II UD 30ml ORAL PRN (11:30)
[2020-08-12] MEDS ORDERED: Miralax 17gm pkt ORAL PRN (11:30)
[2020-08-12] MEDS ORDERED: Milk of Magnesia 30ml Ud ORAL PRN (11:30)
[2020-08-12 12:00] VITALS: BP 139/91
--- NOTE | 2020-08-12 12:50 | History and Physical ---
History of Present Illness General Reason for Hospitalization: Nausea Present Illness HPI Mr. Canchola is a 30M with alcohol abuse who presents for worsening nausea and vomiting. Patient has been complaining of abdominal pain as well over last week. He denies drinking recently but has a heavy alcohol use history. He came in jaundice. No fevers or chills. He was been to the ED multiple times for alchol withdrawal. He reports getting shaky during withdrawal and admits to two previous seizure episodes in the past possibly related to alcohol withdrawal. No other illnesses or sick contacts. Unable to elicit further history as patient is lethargic. In the ED, patient hemodynamically stable. Lipase over 1999. He is jaundiced with elevated bili at 6 and LFT's. Alcohol levels 180. Overnight no events. However, this morning per nurse he had a several second episode of tonic clonic seizures. Episode resolved on own and no post ictal state. Currently have bilateral tremors. PMH: alcohol abuse Sx: none Fx: denies liver or cardiac disease Soc: denies smoking or drug use, heavy drinker Allergies: Coded Allergies: No Known Allergies (Unverified , 04/26/18) COVID-19 Screening Contact w/high risk pt: No Recent Travel to affected area: No Experienced COVID-19 symptoms?: No Coronavirus symptoms experienc: Nausea/Vomiting Medication History Scheduled Doxycycline Monohydrate* (Doxycycline Monohydrate*), 100 MG ORAL Q12H Famotidine* (Pepcid 20mg tablet*), 40 MG ORAL DAILY, (Reported) Omeprazole (Omeprazole), 40 MG ORAL DAILY Ranitidine Hcl* (Zantac), 150 MG ORAL TWICE A DAY Scheduled PRN Ondansetron Odt* (Zofran Odt*), 4 MG BC EVERY 6 HOURS PRN for Nausea & Vomiting Patient History Healthcare decision maker Resuscitation status Advanced Directive on File Review of Systems Constitutional: Reports: weakness; Denies: no symptoms, see HPI, chills, sweats, fever, malaise, other Eye: Denies: no symptoms, see HPI, eye pain, blurred vision, tearing, double vision, nose pain, nose congestion, acuity changes, discharge, other ENT: Denies: no symptoms, see HPI, ear pain, ear discharge, nose pain, nose congestion, throat pain, throat swelling, mouth pain, hearing loss, nasal discharge, other Respiratory: Denies: no symptoms, see HPI, cough, orthopnea, shortness of breath, stridor, wheezing, MATHIS, sputum, other Cardiovascular: Denies: no symptoms, see HPI, chest pain, edema, palpitations, syncope, PND, other Gastrointestinal: Reports: abdominal pain, nausea, vomiting; Denies: no symptoms, see HPI, constipation, diarrhea, melena, hematemesis, other Genitourinary: Denies: no symptoms, see HPI, discharge, dysuria, frequency, hematuria, pain, retention, incontinence, urgency, vag bleed/dc, other Musculoskeletal: Denies: no symptoms, see HPI, back pain, gout, joint pain, joint swelling, muscle pain, muscle stiffness, other Skin: Denies: no symptoms, see HPI, rash, change in color, change in hair/nails, dryness, lesions, other Psychiatric: Denies: no symptoms, see HPI, prior hx, anxiety, depressed feelings, emotional problems, SI, HI, hallucinations, other Neurological: Denies: no symptoms, see HPI, headache, numbness, paresthesia, seizure, tingling, tremors, focal weakness, syncope, dizziness, other Endocrine: Denies: no symptoms, see HPI, excessive sweating, flushing, intolerance to temperature, increased thirst, increased urine, unexplained weight loss, other Hematologic/Lymphatic: Denies: no symptoms, see HPI, anemia, blood clots, easy bleeding, easy bruising, swollen glands, diathesis, other Physical Exam General Appearance: lethargic, alert oriented x3 HEENT: normocephalic, PERRL, other - scleral icterus Neck: non-tender, supple Respiratory/Chest: lungs clear, normal breath sounds, no respiratory distress Cardiovascular/Chest: normal rate, regular rhythm, no JVD Abdomen: normal bowel sounds, non tender, soft, no organomegaly, no mass Extremities: normal range of motion, non-pitting Skin Exam: normal pigmentation, warm/dry 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, oriented x 3 Musculoskeletal: normal muscle bulk Last 24 Hour Vital Signs Date Time Temp Pulse Resp B/P (MAP) Pulse Ox O2 Delivery O2 Flow Rate FiO2 08/12/20 10:11 104 18 132/85 100 08/12/20 09:41 137 18 157/98 100 08/12/20 09:00 Room Air 08/12/20 08:00 97.1 137 18 157/98 (117) 100 08/12/20 04:00 99.1 91 17 138/85 (102) 100 08/12/20 03:21 Room Air 08/12/20 01:15 97.5 91 20 125/86 97 Room Air 08/11/20 22:36 97.5 88 19 120/80 95 Room Air 08/11/20 20:14 97.5 116 22 144/90 96 Room Air 08/11/20 19:57 97.5 116 22 144/90 (108) 96 Room Air Intake and Output 08/11/20 08/12/20 19:00 07:00 Intake Total 3200 ml Output Total 600 ml Balance 2600 ml Intake IV Total 3200 ml Output Urine Total 600 ml # Voids 2 Laboratory Tests Test 08/11/20 20:40 08/11/20 21:05 08/12/20 06:10 White Blood Count 12.2 K/UL (4.8-10.8) H 9.0 K/UL (4.8-10.8) Red Blood Count 5.15 M/UL (4.70-6.10) 4.46 M/UL (4.70-6.10) L Hemoglobin 13.2 G/DL (14.2-18.0) L 11.3 G/DL (14.2-18.0) L Hematocrit 41.9 % (42.0-52.0) L 36.6 % (42.0-52.0) L Mean Corpuscular Volume 81 FL (80-99) 82 FL (80-99) Mean Corpuscular Hemoglobin 25.7 PG (27.0-31.0) L 25.4 PG (27.0-31.0) L Mean Corpuscular Hemoglobin Concent 31.6 G/DL (32.0-36.0) L 31.0 G/DL (32.0-36.0) L Red Cell Distribution Width 20.5 % (11.6-14.8) H 19.7 % (11.6-14.8) H Platelet Count 84 K/UL (150-450) L 65 K/UL (150-450) L Mean Platelet Volume 8.7 FL (6.5-10.1) 7.7 FL (6.5-10.1) Neutrophils (%) (Auto) % (45.0-75.0) % (45.0-75.0) Lymphocytes (%) (Auto) % (20.0-45.0) % (20.0-45.0) Monocytes (%) (Auto) % (1.0-10.0) % (1.0-10.0) Eosinophils (%) (Auto) % (0.0-3.0) % (0.0-3.0) Basophils (%) (Auto) % (0.0-2.0) % (0.0-2.0) Differential Total Cells Counted 100 100 Neutrophils % (Manual) 72 % (45-75) 75 % (45-75) Lymphocytes % (Manual) 20 % (20-45) 13 % (20-45) L Monocytes % (Manual) 7 % (1-10) 12 % (1-10) H Eosinophils % (Manual) 0 % (0-3) 0 % (0-3) Basophils % (Manual) 1 % (0-2) 0 % (0-2) Band Neutrophils 0 % (0-8) 0 % (0-8) Platelet Estimate Decreased L Decreased L Platelet Morphology Normal Normal Anisocytosis 2+ 2+ Sodium Level 134 MMOL/L (136-145) L 134 MMOL/L (136-145) L Potassium Level 3.5 MMOL/L (3.5-5.1) 3.8 MMOL/L (3.5-5.1) Chloride Level 94 MMOL/L (98-107) L 99 MMOL/L (98-107) Carbon Dioxide Level 23 MMOL/L (21-32) 23 MMOL/L (21-32) Anion Gap 17 mmol/L (5-15) H 12 mmol/L (5-15) Blood Urea Nitrogen 6 mg/dL (7-18) L 9 mg/dL (7-18) Creatinine 1.0 MG/DL (0.55-1.30) 0.9 MG/DL (0.55-1.30) Estimat Glomerular Filtration Rate > 60 mL/min (>60) > 60 mL/min (>60) Glucose Level 107 MG/DL (74-106) H 99 MG/DL (74-106) Calcium Level 8.6 MG/DL (8.5-10.1) 7.9 MG/DL (8.5-10.1) L Total Bilirubin 6.4 MG/DL (0.2-1.0) H 6.0 MG/DL (0.2-1.0) H Direct Bilirubin 4.8 MG/DL (0.0-0.3) H 4.5 MG/DL (0.0-0.3) H Aspartate Amino Transf (AST/SGOT) 387 U/L (15-37) H 300 U/L (15-37) H Alanine Aminotransferase (ALT/SGPT) 112 U/L (12-78) H 95 U/L (12-78) H Alkaline Phosphatase 278 U/L (46-116) H 230 U/L (46-116) H Total Protein 7.4 G/DL (6.4-8.2) 7.0 G/DL (6.4-8.2) Albumin 3.5 G/DL (3.4-5.0) 3.2 G/DL (3.4-5.0) L Globulin 3.9 g/dL 3.8 g/dL Albumin/Globulin Ratio 0.9 (1.0-2.7) L 0.8 (1.0-2.7) L Lipase 2263 U/L (73-393) H Serum Alcohol 187 mg/dL Urine Color Charlene Urine Appearance Slightly cloudy Urine pH 6.5 (4.5-8.0) Urine Specific [place] 1.020 (1.005-1.035) Urine Protein 4+ (NEGATIVE) H Urine Glucose (UA) Negative (NEGATIVE) Urine Ketones 3+ (NEGATIVE) H Urine Blood 4+ (NEGATIVE) H Urine Nitrite Negative (NEGATIVE) Urine Bilirubin 3+ (NEGATIVE) H Urine Ictotest Positive (NEGATIVE) Urine Urobilinogen 1 MG/DL (0.0-1.0) H Urine Leukocyte Esterase 1+ (NEGATIVE) H Urine RBC 5-10 /HPF (0 - 0) H Urine WBC 0-2 /HPF (0 - 0) Urine Squamous Epithelial Cells None /LPF (NONE/OCC) Urine Bacteria Few /HPF (NONE) Urine Hyaline Casts 0-2 /LPF (NONE) H Urine Waxy Casts 0-2 /LPF (NONE) H Urine Mucus Many /LPF (NONE/OCC) H Hypochromasia 1+ Magnesium Level 1.0 MG/DL (1.8-2.4) L C-Reactive Protein, Quantitative 0.4 mg/dL (0.00-0.90) Microbiology Date/Time Source Procedure Growth Status 08/11/20 22:20 Nasopharynx SARS-CoV-2 RdRp Gene Assay - Final Complete Height (Feet): 5 Height (Inches): 7.00 Weight (Pounds): 175 Medications Current Medications Medications (Trade) Dose Ordered Sig/Solis Route PRN Reason Start Time Stop Time Status Last Admin Dose Admin Acetaminophen (Tylenol) 650 mg Q4H PRN ORAL Temp >100.5 08/12/20 11:30 09/11/20 11:29 Al Hydroxide/Mg Hydroxide (Mylanta II) 30 ml Q6H PRN ORAL dyspepsia 08/12/20 11:30 09/11/20 11:29 Albuterol/ Ipratropium (Albuterol/ Ipratropium) 3 ml Q4H PRN HHN Shortness of Breath 08/12/20 11:30 08/17/20 11:29 Barium Sulfate (Readi-Cat 2) 450 ml NOW PRN ORAL Radiology Procedure 08/12/20 09:45 08/14/20 09:44 Dextrose (Dextrose 50%) 25 ml Q30M PRN IV Hypoglycemia 08/12/20 11:30 11/10/20 11:29 Dextrose (Dextrose 50%) 50 ml Q30M PRN IV Hypoglycemia 08/12/20 11:30 11/10/20 11:29 Heparin Sodium (Porcine) (Heparin 5000 units/ml) 5,000 units EVERY 12 HOURS SUBQ 08/12/20 21:00 09/26/20 20:59 Hydromorphone HCl (Dilaudid) 0.5 mg Q3H PRN IVP Severe Pain (Pain Scale 7-10) 08/12/20 03:30 08/19/20 03:29 08/12/20 08:28 Iohexol (OMNIPAQUE-300 100ml) 100 ml NOW PRN INJ Radiology Procedure 08/12/20 09:45 08/14/20 09:44 Lactated Ringer's 1,000 ml @ 200 mls/hr Q5H IV 08/12/20 03:00 09/11/20 02:59 08/12/20 03:03 Lorazepam (Ativan 2mg/ml 1ml) 2 mg ONCE IV 08/12/20 09:30 08/19/20 11:29 08/12/20 09:41 Lorazepam (Ativan 2mg/ml 1ml) 2 mg Q15MIN PRN IV For Seizures 08/12/20 09:46 08/19/20 09:45 Lorazepam (Ativan 2mg/ml 1ml) 2 mg Q6HR IV 08/12/20 12:00 08/19/20 11:59 Magnesium Hydroxide (Mom) 30 ml HSPRN PRN ORAL Constipation 08/12/20 11:30 09/11/20 11:29 Magnesium Sulfate 100 ml @ 100 mls/hr Q1H IVPB 08/12/20 11:30 08/12/20 13:29 08/12/20 11:55 Ondansetron HCl (Zofran) 4 mg Q6H PRN IVP Nausea & Vomiting 08/12/20 11:30 09/11/20 11:29 Polyethylene Glycol (Miralax) 17 gm HSPRN PRN ORAL Constipation 08/12/20 11:30 09/11/20 11:29 Thiamine HCl 100 mg/Dextrose 56 ml @ 112 mls/hr Q24H IVPB 08/12/20 12:00 09/11/20 11:59 Assessment/Plan Diagnosis [place] I: Mr. Canchola with hx of alcohol abuse admitted for abdominal pain, nausea, vomiting. A: # Alcoholic Induced Pancreatitis # Alcoholic Hepatitis # Jaundice likely AH induced, obstructive Jaundice less likely # Transaminitis # Seizure 2/2 Alcohol Withdrawal # Alcohol Withdrawal # Thrombocytopenia 2/2 BM suppression from alcohol, possible splenic sequestration P: - hemodynamically stable - no airway compromise following seizure - no post ictal state, AOx3 - ativan 2mg q6h for withdrawal - ativan prn for break through seizures - start IV thiamine - multivitamins, folic acid - IVF - Maddrey score once INR comes in - f/u anti-smooth, ant-mitochondria, hep panel - US negative for gallstones and CBD dilatation - f/u CT abdomen pelvis with contrast - seizure, fall precautions - hold heparin if Platelet < 50 - GI consult with Dr. Victoria, recs appreciated - CM/SW substance abuse program consultation CODE: Full GI: none Fluids: LR 200 cc Diet: NPO DVT: Heparin 5000U BID Dispo: pending resolution of pancreatitis, hepatitis In addition to the usual care above I spent additional time reviewing records in the EMR and paper charts including physician documentation, nursing documentation, lab results, imaging and clinical documentation. Total time included was 25 min. Time spent on this encounter was 55 minutes which included 35 minutes of couns eling and care coordination. I discussed with the nurse at bedside. Time of note may not reflect time patient was seen. Gilberto Hernandez D.O Aug 12, 2020 12:50
[2020-08-12 13:34] LABS: INR 1.2 (0.9-1.1)
[2020-08-12] MEDS: Thiamine HCl 100 MG in D5W 55 ML IVPB SCH (14:14)
[2020-08-12] MEDS: LORazepam Inj 2mg/ml 1ml IV SCH ×3 (14:14→23:58)
--- NOTE | 2020-08-12 14:42 | NUR ---
CASE MANAGEMENT:REVIEW 20 YR OLD MALE PRESENTED TO ER CC; NAUSEA PMH: SI: PANCREATITIS. ALCOHOL INTOXICATION 97.6 116 22 144/90 96% ON RA WBC+12.2 PLT-84 TBILI+6.4 DBILI+4.8 AST/ALT+387/112 LIPASE+2263 IS: IV REGLAN 1L NS BOLUS NPO : TO MED/SURG [facility]
--- NOTE | 2020-08-12 15:19 | Diagnostic Imaging Report ---
EXAM: CT Abdomen and Pelvis With Intravenous Contrast CLINICAL HISTORY: ABD PAIN TECHNIQUE: Axial computed tomography images of the abdomen and pelvis with intravenous contrast. CTDI is 7.5 mGy and DLP is 435.5 mGy-cm. One or more of the following dose reduction techniques were used: automated exposure control, adjustment of the mA and/or kV according to patient size, use of iterative reconstruction technique. COMPARISON: CT abdomen/pelvis on 11/29/2019 FINDINGS: Lung bases: Mild dependent atelectasis bilaterally. Mediastinum: Mild prominence of the wall of the distal esophagus could represent esophagitis. ABDOMEN: Liver: Hepatic steatosis. Hepatomegaly. Small hypodensities in the liver are too small to definitively characterize. Heterogeneous liver. Possible mild cirrhotic changes. Gallbladder and bile ducts: Cholelithiasis. No ductal dilation. Pancreas: Unremarkable. No mass. No ductal dilation. Spleen: Unremarkable. No splenomegaly. Adrenals: Unremarkable. No mass. Kidneys and ureters: No hydronephrosis or obstructing stone. Stomach and bowel: Unremarkable. No obstruction. No mucosal thickening. PELVIS: Appendix: Normal appendix. Bladder: Mild prominence of the bladder wall is nonspecific. Please correlate with urinalysis if concerned for cystitis. Reproductive: Unremarkable as visualized. ABDOMEN and PELVIS: Intraperitoneal space: Unremarkable. No free air. No significant fluid collection. Bones/joints: No acute fracture. No dislocation. Soft tissues: Small fat-containing umbilical hernia. Vasculature: Unremarkable. No abdominal aortic aneurysm. Lymph nodes: Unremarkable. No enlarged lymph nodes. IMPRESSION: 1. Hepatic steatosis. Hepatomegaly. Heterogeneity of the liver with possible mild cirrhotic changes. 2. Cholelithiasis. 3. Mild prominence of the bladder wall is nonspecific. Please correlate with urinalysis if concerned for cystitis.
[2020-08-12 16:00] VITALS: BP 135/90
[2020-08-12] MEDS: Dextrose 5%/Lactated Ringer's 1,000 ML IV SCH (18:12)
--- NOTE | 2020-08-12 19:00 | NUR ---
NURSE NOTES:pt is monitored all through the shift. no other episodes of Seizure noted. side rail padded at all time. pt is verbally responsive and able to make needs known. pt stable at the end of the shift.
--- NOTE | 2020-08-12 19:31 | NUR ---
HAND-OFF: Report given to TAB.
--- NOTE | 2020-08-12 19:41 | NUR ---
NURSE NOTES: Patient in bed, awake and alert x4. Denies SOB. IV intact and running IVF as ordered. Patient is NPO at this time. Bed locked and in lowest position. Call light in easy reach. Will continue plan of care.
[2020-08-12 19:56] VITALS: BP 138/77
[2020-08-12] MEDS: Heparin 5000 units/ml inj SUBQ SCH (20:12)
[2020-08-12 23:56] VITALS: BP 131/79
[2020-08-13] MEDS: Dextrose 5%/Lactated Ringer's 1,000 ML IV SCH ×3 (03:45→18:11)
[2020-08-13 04:00] VITALS: BP 136/85
[2020-08-13] MEDS: LORazepam Inj 2mg/ml 1ml IV SCH ×4 (05:52→23:43)
--- NOTE | 2020-08-13 06:38 | NUR ---
NURSE HAND-OFF: Important Events on Shift: No events Patient Status: Stable, no N/V, no seizures Diet: NPO except ice/meds Pending Orders: N/A Pending Results/Labs: Lipase, phos, mag, cmp, cbc Pending MD notification: N/A Latest Vital Signs: Temperature 98.2 , Pulse 91 , B/P 132 /71 , Respiratory Rate 17 , O2 SAT 96 , Room Air, O2 Flow Rate . Vital Sign Comment: N/A Latest Qureshi Fall Score: 20 Fall Risk: Low Risk Safety Measures: Call light Within Reach, Bed Alarm Zone 1, Side Rails Side Rails x3, Bed position Low and Locked. Fall Precautions: Yellow Socks Yellow Gown Door Sign Patient Fall Education Addendum: 08/13/20 at 0735 by BRITTNEY LOZA RN Report given to PHILIP Agarwal
--- NOTE | 2020-08-13 07:45 | NUR ---
NURSE NOTES: Pt lying in bed w/bed in lowest position and call light within reach. Pt A&Ox4, VSS, and in no apparent distress. IV site intact/asymptomatic w/IVF infusing and skin intact. Pt on seizure precautions; bed rails padded. Will continue to monitor.
[2020-08-13 07:58] LABS: HEMATOCRIT 33.9 % (42.0-52.0); HEMOGLOBIN 10.4 G/DL (14.2-18.0); MEAN CORPUSCULAR VOLUME 82 FL (80-99); PLATELET COUNT 71 K/UL (150-450); RED BLOOD COUNT 4.14 M/UL (4.70-6.10); RED CELL DISTRIBUTION WIDTH 19.6 % (11.6-14.8); WHITE BLOOD COUNT 7.1 K/UL (4.8-10.8)
[2020-08-13 08:00] VITALS: BP 123/73
[2020-08-13 08:15] LABS: ALANINE AMINOTRANSFERASE 83 U/L (12-78); ALBUMIN 2.9 G/DL (3.4-5.0); ALBUMIN/GLOBULIN RATIO 0.9 (1.0-2.7); ALKALINE PHOSPHATASE 210 U/L (46-116); ANION GAP 11 mmol/L (5-15); ASPARTATE AMINO TRANSFERASE 249 U/L (15-37); BILIRUBIN,TOTAL 6.7 MG/DL (0.2-1.0); BLOOD UREA NITROGEN 7 mg/dL (7-18); CALCIUM 8.3 MG/DL (8.5-10.1); CARBON DIOXIDE 26 MMOL/L (21-32); CHLORIDE 98 MMOL/L (98-107); CREATININE 0.9 MG/DL (0.55-1.30); PHOSPHORUS 3.1 MG/DL (2.5-4.9); POTASSIUM 3.1 MMOL/L (3.5-5.1); SODIUM 135 MMOL/L (136-145)
[2020-08-13 08:16] LABS: BILIRUBIN,DIRECT 4.7 MG/DL (0.0-0.3)
[2020-08-13] MEDS: Heparin 5000 units/ml inj SUBQ SCH ×2 (09:00→21:00)
--- NOTE | 2020-08-13 10:29 | General Progress Note ---
Subjective Constitutional: Denies: no symptoms, chills, diaphoresis, fever, malaise, weakness, other HEENT: Denies: no symptoms, eye pain, blurred vision, tearing, double vision, ear pain, ear discharge, nose pain, nose congestion, throat pain, throat swelling, mouth pain, mouth swelling, other Cardiovascular: Denies: no symptoms, chest pain, edema, irregular heart rate, lightheadedness, palpitations, syncope, other Respiratory: Denies: no symptoms, cough, orthopnea, shortness of breath, SOB with excertion, SOB at rest, sputum, stridor, wheezing, other Gastrointestinal/Abdominal: Reports: abdominal pain, poor appetite, poor fluid intake; Denies: no symptoms, abdomen distended, black stools, tarry stools, blood in stool, constipated, diarrhea, difficulty swallowing, nausea, rectal bleeding, vomiting, other Genitourinary: Denies: no symptoms, burning, discharge, frequency, flank pain, hematuria, incontinence, pain, urgency, other Neurologic/Psychiatric: Reports: tremors; Denies: no symptoms, anxiety, depressed, emotional problems, headache, numbness, paresthesia, pre-existing deficit, seizure, tingling, weakness, other Endocrine: Denies: no symptoms, excessive sweating, flushing, intolerance to cold, intolerance to heat, increased hunger, increased thirst, increased urine, unexplained weight gain, unexplained weight loss, other Hematologic/Lymphatic: Denies: no symptoms, anemia, easy bleeding, easy bruising, other Allergies: Coded Allergies: No Known Allergies (Unverified , 04/26/18) Subjective no acute events overnight. Patient feels better this morning. Tremors are improved, notes difference with ativan. Still has some abdominal pain but better. Has no appetite. No fevers. Objective Last 24 Hour Vital Signs Date Time Temp Pulse Resp B/P (MAP) Pulse Ox O2 Delivery O2 Flow Rate FiO2 08/13/20 06:22 91 17 132/71 96 08/13/20 05:52 85 18 136/85 98 08/13/20 04:00 98.2 85 18 136/85 (102) 98 08/13/20 00:28 91 18 132/81 96 08/12/20 23:58 94 17 131/79 95 08/12/20 23:56 98.2 94 17 131/79 (96) 95 08/12/20 21:00 Room Air 08/12/20 19:56 97.7 89 16 138/77 (97) 99 08/12/20 18:42 106 18 135/90 97 08/12/20 18:12 106 18 135/90 97 08/12/20 16:00 97.6 106 18 135/90 (105) 97 08/12/20 14:44 101 20 124/62 97 08/12/20 14:14 107 20 139/91 97 08/12/20 12:00 97.1 107 20 139/91 (107) 97 Intake and Output 08/12/20 08/13/20 19:00 07:00 Output Total 500 ml Balance -500 ml Output Urine Total 500 ml # Voids 2 Laboratory Tests 08/12/20 11:40: Anti-Mitochondrial Antibody [Pending], F-Actin IgG Antibody [Pending], Hepatitis A IgM Antibody [Pending], Hepatitis B Surface Antigen [Pending], Hepatitis B Core IgM Antibody [Pending], Hepatitis C Antibody [Pending] 08/12/20 13:00: Prothrombin Time 13.3H, Prothromb Time International Ratio 1.2H, Activated Partial Thromboplast Time 25 08/12/20 16:30: Urine Opiates Screen Negative, Urine Barbiturates Screen Negative, Phencyclidine (PCP) Screen Negative, Urine Amphetamines Screen Negative, Urine Benzodia zepines Screen Negative, Urine Cocaine Screen Negative, Urine Marijuana (THC) Screen Negative 08/13/20 05:20: White Blood Count 7.1, Red Blood Count 4.14L, Hemoglobin 10.4L, Hematocrit 33.9L , Mean Corpuscular Volume 82, Mean Corpuscular Hemoglobin 25.1L, Mean Corpusc ular Hemoglobin Concent 30.7L, Red Cell Distribution Width 19.6H, Platelet Count 71L, Mean Platelet Volume 10.9H, Neutrophils (%) (Auto) , Lymphocytes (%) (Auto) , Monocytes (%) (Auto) , Eosinophils (%) (Auto) , Basophils (%) (Auto) , Neutrophils % (Manual) [Pending], Lymphocytes % (Manual) [Pending], Platelet Estimate [Pending], Platelet Morphology [Pending], Sodium Level 135L, Potassium Level 3.1L, Chloride Level 98, Carbon Dioxide Level 26, Anion Gap 11, Blood Urea Nitrogen 7, Creatinine 0.9, Estimat Glomerular Filtration Rate > 60, Glucose Level 121H, Calcium Level 8.3L, Phosphorus Level 3.1, Magnesium Level 1.8, Total Bilirubin 6.7H, Direct Bilirubin 4.7H, Aspartate Amino Transf (AST/SGOT) 249H, Alanine Aminotransferase (ALT/SGPT) 83H, Alkaline Phosphatase 210H, Total Protein 6.0L, Albumin 2.9L, Globulin 3.1, Albumin/Globulin Ratio 0.9L, Lipase > 2000H Height (Feet): 5 Height (Inches): 7.00 Weight (Pounds): 175 General Appearance: no apparent distress, alert, alert oriented x3, other - sclera icterus improved EENT: PERRL/EOMI Neck: non-tender, normal inspection Cardiovascular: normal rate, regular rhythm, no JVD Respiratory/Chest: lungs clear, normal breath sounds, no respiratory distress Abdomen: normal bowel sounds, soft, no organomegaly, no mass, tender Extremities: normal range of motion, non-tender Edema: no edema noted Arm (L), no edema noted Arm (R), no edema noted Leg (L), no edema noted Leg (R), no edema noted Pedal (L), no edema noted Pedal (R), no edema noted 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 Valero with hx of alcohol abuse admitted for abdominal pain, nausea, vomiting. 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 # Jaundice likely AH induced, obstructive Jaundice less likely # Transaminitis # Seizure 2/2 Alcohol Withdrawal # Alcohol Withdrawal # Thrombocytopenia 2/2 BM suppression from alcohol, possible splenic sequestration # Normocytic Anemia 2/2 likely ACD P: - hemodynamically stable - withdrawal signs better will decrease schedule ativan and monitor - decrease ativan 1mg q6h for withdrawal - ativan prn for break through seizures and withdrawal - CIWA protocol - CT abd reviewed showing early cirrhosis, hepatitis - MELD Na: 19 - Child Smith Score: B - Maddrey score 14 - no indications for steroids - f/u anti-smooth, ant-mitochondria, hep panel - seizure, fall precautions - hold heparin if Platelet < 50 - continue IV thiamine - multivitamins, folic acid - IVF - GI consult with Dr. Victoria, recs appreciated - CM/SW substance abuse program consultation CODE: Full GI: none Fluids: D5LR 100 cc Diet: NPO DVT: Heparin 5000U BID Dispo: pending resolution of pancreatitis, hepatitis and withdrawal Time spent on this encounter was 35 minutes which included 21 minutes of counseling and care coordination. I discussed with the nurse at bedside. Time of note may not reflect time patient was seen. Gilberto Hernandez D.O Aug 13, 2020 10:29
--- NOTE | 2020-08-13 12:04 | NUR ---
CASE MANAGEMENT: Faxed CM review and clinical info (face sheet /H&P / ER MD notes / progress notes) to [facility] @ [phone] Addendum: 08/13/20 at 1329 by NAKITA SELLERS Faxed 08/13/20 CM review to [facility] @ [phone]
[2020-08-13 12:15] VITALS: BP 127/78
--- NOTE | 2020-08-13 12:44 | NUR ---
CASE MANAGEMENT:REVIEW 08/13/20 SI: ALCOHOL WITHDRAWAL. PANCREATITIS TREMORS HAV DECREASED 98.8 83 18 127/78 95% ON RA H/H-10.4/33.9 PLT-71 K-3.1 LIPASE>1999 IS: IV MAG SULFATE X1 IV ATIVAN Q6HRS Q6HRS IV KCL Q1HRS X4 BAGS [id number] IV THIAMINE Q24 : MED/SURG STATUS DCP: FROM HOME
[2020-08-13] MEDS: Thiamine HCl 100 MG in D5W 55 ML IVPB SCH (13:13)
--- NOTE | 2020-08-13 15:30 | Consultation ---
DATE OF CONSULTATION: 08/13/2020 GASTROENTEROLOGY CONSULTATION CONSULTING PHYSICIAN: Nga Fields MD. CHIEF COMPLAINT: I was asked to see this patient for evaluation of alcoholic liver disease. HISTORY OF PRESENT ILLNESS: The patient is a 30-year-old man with a four-year history of substantial alcohol abuse, drinking about a pint of vodka a day, who comes in due to abdominal pain, nausea, and vomiting. The patient had for about a week before he came to the hospital. He has had a history of alcoholic pancreatitis in the past and apparently he had a seizure in this hospital. PAST MEDICAL HISTORY: History of alcohol abuse and history of pancreatitis. FAMILY HISTORY: Negative. SOCIAL HISTORY: The patient does not smoke or use drugs, but he does drink heavily. He is single. REVIEW OF SYSTEMS: Otherwise negative. PHYSICAL EXAMINATION: GENERAL: A well-developed and well-nourished man, seen in his room. HEENT: Normocephalic and atraumatic. NECK: Supple. CHEST: Clear to auscultation. CARDIOVASCULAR: Revealed a regular rate. ABDOMEN: Soft and nontender. EXTREMITIES: Revealed no edema. LABORATORY DATA: Noted. The patient's bilirubin was 6.7, total. AST and ALT today 83, which is on a decline compared to yesterday. Lipase is over 2000. IMAGING: abdomen and pelvis shows hepatic steatosis with hepatomegaly and heterogeneous liver consistent with possible cirrhosis. Cholelithiasis seen. ASSESSMENT: This patient presents with significant alcohol use with jaundice the alcoholic hepatitis. Given that his white count is normal, he may be a candidate for steroids for treatment of alcoholic hepatitis. Alternatively, he can also be given Trental for the same indication. He should be given the benzodiazepines to avoid any further seizures. Multivitamins and thiamine should also be given. Laboratory parameters should be followed closely and he will be started on clear liquid diet and advance as tolerated. He was strongly advised to discontinue alcohol permanently as he has demonstrated significantly poor outcome with his drinking behavior. RECOMMENDATIONS: 1. IV fluid. 2. Multivitamin and thiamine. 3. Benzodiazepine. 4. Follow laboratory parameters. 5. Steroids versus Trental for acute alcoholic hepatitis. 6. Discontinue alcohol use. Thank you for asking me to participate in care of this patient. Nga Fields M.D. DR: CARLOS JOB#: [id number] CC:
[2020-08-13 16:00] VITALS: BP 114/81
--- NOTE | 2020-08-13 19:12 | NUR ---
NURSE HAND-OFF: Important Events on Shift: Administered Magnesium and KCl x 4 bags; no seizures during shift. Pt placed on CLD for dinner; advance as tolerated. Patient Status: Stable Diet: CLD advance as tolerated Latest Vital Signs: Temperature 97.6 , Pulse 91 , B/P 120 /78 , Respiratory Rate 16 , O2 SAT 95 , Room Air, O2 Flow Rate . Latest Qureshi Fall Score: 20 Fall Risk: Low Risk Safety Measures: Call light Within Reach, Bed Alarm Zone 1, Side Rails Side Rails x3, Bed position Low and Locked. Fall Precautions: Yellow Socks Yellow Gown Door Sign Patient Fall Education Report given to PHILIP Lopez.
--- NOTE | 2020-08-13 19:27 | NUR ---
NURSE NOTES: Received report from kehinde vigil. patient is on bed , awake and verbally responsive. denies any pain or discomfort. scd's on. with iv line on the right ac running d5 lr @ 100 ml/hr. uses urinal. on room air. no sob. reiterated to call and ask for assistance to prevent fall or injury. call light and light button within easy reach. bed locked and in lowest position. will continue plan of care.
[2020-08-13 20:00] VITALS: BP 131/76
[2020-08-14] VITALS: BP 135/77
[2020-08-14] MEDS: Hydromorphone 0.5mg/0.5ml inj IVP PRN ×2 (01:21→22:21)
[2020-08-14] MEDS: Dextrose 5%/Lactated Ringer's 1,000 ML IV SCH (03:15)
[2020-08-14 04:00] VITALS: BP 124/76
[2020-08-14] MEDS: LORazepam Inj 2mg/ml 1ml IV SCH (06:27)
--- NOTE | 2020-08-14 06:37 | NUR ---
NURSE HAND-OFF: Important Events on Shift: PAIN MNGT; Patient Status: STABLE Diet: CLEAR LIQUID DIET; MAY ADVANCE DIET TOLERATED Pending Orders: Pending Results/Labs: Pending MD notification: Latest Vital Signs: Temperature 97.2 , Pulse 79 , B/P 125 /73 , Respiratory Rate 20 , O2 SAT 98 , Room Air, O2 Flow Rate . Vital Sign Comment: Latest Qureshi Fall Score: 20 Fall Risk: Low Risk Safety Measures: Call light Within Reach, Bed Alarm Zone 1, Side Rails Side Rails x3, Bed position Low and Locked. Fall Precautions: Yellow Socks Yellow Gown Door Sign Patient Fall Education
[2020-08-14 06:40] LABS: HEMATOCRIT 35.9 % (42.0-52.0); HEMOGLOBIN 11.2 G/DL (14.2-18.0); MEAN CORPUSCULAR VOLUME 81 FL (80-99); PLATELET COUNT 83 K/UL (150-450); RED BLOOD COUNT 4.41 M/UL (4.70-6.10); RED CELL DISTRIBUTION WIDTH 19.5 % (11.6-14.8)
[2020-08-14 07:04] LABS: ALANINE AMINOTRANSFERASE 76 U/L (12-78); ALBUMIN/GLOBULIN RATIO 0.9 (1.0-2.7); ALKALINE PHOSPHATASE 212 U/L (46-116); ANION GAP 10 mmol/L (5-15); ASPARTATE AMINO TRANSFERASE 224 U/L (15-37); BILIRUBIN,TOTAL 7.3 MG/DL (0.2-1.0); BLOOD UREA NITROGEN 3 mg/dL (7-18); CALCIUM 8.6 MG/DL (8.5-10.1); CARBON DIOXIDE 25 MMOL/L (21-32); CHLORIDE 96 MMOL/L (98-107); CREATININE 0.8 MG/DL (0.55-1.30); POTASSIUM 3.2 MMOL/L (3.5-5.1); SODIUM 131 MMOL/L (136-145)
[2020-08-14 07:13] LABS: BILIRUBIN,DIRECT 5.8 MG/DL (0.0-0.3)
--- NOTE | 2020-08-14 07:51 | NUR ---
HAND-OFF: Report given to kehinde chen.
[2020-08-14 08:00] VITALS: BP 115/72
[2020-08-14] MEDS: Heparin 5000 units/ml inj SUBQ SCH ×2 (08:37→21:00)
[2020-08-14] MEDS ORDERED: Multivitamin w/Minerals tab ORAL SCH (09:00)
--- NOTE | 2020-08-14 09:33 | General Progress Note ---
Subjective ROS Limited/Unobtainable: Yes Allergies: Coded Allergies: No Known Allergies (Unverified , 04/26/18) Objective Last 24 Hour Vital Signs Date Time Temp Pulse Resp B/P (MAP) Pulse Ox O2 Delivery O2 Flow Rate FiO2 08/14/20 08:38 121/76 08/14/20 06:57 76 19 121/76 97 08/14/20 06:27 79 20 125/73 98 08/14/20 04:00 97.2 87 18 124/76 (92) 99 08/14/20 01:51 98.1 08/14/20 00:13 87 20 129/73 96 08/14/20 00:00 97.9 85 20 135/77 (96) 97 08/13/20 23:43 89 20 134/77 99 08/13/20 21:00 Room Air 08/13/20 20:00 98.1 87 20 131/76 (94) 99 08/13/20 18:43 91 16 120/78 95 08/13/20 18:11 89 18 114/81 98 08/13/20 16:00 97.6 89 18 114/81 (92) 98 08/13/20 13:14 87 16 127/80 96 08/13/20 12:20 83 16 127/78 95 08/13/20 12:15 98.8 83 18 127/78 (94) 95 Intake and Output 08/13/20 08/14/20 19:00 07:00 Intake Total 1000 ml 650 ml Output Total 800 ml Balance 1000 ml -150 ml Intake Oral 650 ml Other 1000 ml Output Urine Total 800 ml Laboratory Tests 08/14/20 05:45: White Blood Count 7.0, Red Blood Count 4.41L, Hemoglobin 11.2L, Hematocrit 35.9L , Mean Corpuscular Volume 81, Mean Corpuscular Hemoglobin 25.3L, Mean Corpuscular Hemoglobin Concent 31.1L, Red Cell Distribution Width 19.5H, Platelet Count 83L, Mean Platelet Volume 8.5, Neutrophils (%) (Auto) , Lymphocytes (%) (Auto) , Monocytes (%) (Auto) , Eosinophils (%) (Auto) , Basophils (%) (Auto) , Differential Total Cells Counted 100, Neutrophils % (Manual) 75, Lymphocytes % (Manual) 18L, Monocytes % (Manual) 5, Eosinophils % (Manual) 2, Basophils % (Manual) 0, Band Neutrophils 0, Platelet Estimate DecreasedL, Platelet Morphology Normal, Hypochromasia 1+, Anisocytosis 2+, Sodium Level 131L, Potassium Level 3.2L, Chloride Level 96L, Carbon Dioxide Level 25, Anion Gap 10, Blood Urea Nitrogen 3L, Creatinine 0.8, Estimat Glomerular Filtration Rate > 60, Glucose Level 114H, Calcium Level 8.6, Phosphorus Level 7.0H, Magnesium Level 1.6L, Total Bilirubin 7.3H, Direct Bilirubin 5.8H, Aspartate Amino Transf (AST/SGOT) 224H, Alanine Aminotransferase (ALT/SGPT) 76, Alkaline Phosphatase 212H, Total Protein 6.2L, Albumin 3.0L, Globulin 3.2, Albumin/Globulin Ratio 0.9L, Lipase > 2000H Height (Feet): 5 Height (Inches): 7.00 Weight (Pounds): 175 General Appearance: alert EENT: PERRL/EOMI Neck: supple Cardiovascular: normal peripheral pulses Respiratory/Chest: lungs clear Abdomen: hypoactive bowel sounds, tender Extremities: non-tender Assessment/Plan Assessment/Plan: ETOH pancreatitis elevated LFTS anemia thrombocytopenia GB sludge GB polyp fatty liver RECOMMENDATIONS: 1. IV fluid. 2. Multivitamin and thiamine. 3. Benzodiazepine. 4. Follow laboratory parameters. 5. Trental for acute alcoholic hepatitis. 6. Discontinue alcohol use. Luis Armando Victoria MD Aug 14, 2020 09:33
--- NOTE | 2020-08-14 10:30 | NUR ---
Social Work This SW received a consult due to substance abuse. This SW met with patient who denied any substance abuse with this SW. Patient stating he plans to discharge to home and expressed no further needs or concerns at this time. Nursing informed.
[2020-08-14 12:00] VITALS: BP 106/71
--- NOTE | 2020-08-14 12:04 | General Progress Note ---
Subjective Constitutional: Denies: no symptoms, chills, diaphoresis, fever, malaise, weakness, other HEENT: Denies: no symptoms, eye pain, blurred vision, tearing, double vision, ear pain, ear discharge, nose pain, nose congestion, throat pain, throat swelling, mouth pain, mouth swelling, other Cardiovascular: Denies: no symptoms, chest pain, edema, irregular heart rate, lightheadedness, palpitations, syncope, other Respiratory: Denies: no symptoms, cough, orthopnea, shortness of breath, SOB with excertion, SOB at rest, sputum, stridor, wheezing, other Gastrointestinal/Abdominal: Denies: no symptoms, abdomen distended, abdominal pain, black stools, tarry stools, blood in stool, constipated, diarrhea, difficulty swallowing, nausea, poor appetite, poor fluid intake, rectal bleeding, vomiting, other Genitourinary: Denies: no symptoms, burning, discharge, frequency, flank pain, hematuria, incontinence, pain, urgency, other Neurologic/Psychiatric: Denies: no symptoms, anxiety, depressed, emotional problems, headache, numbness, paresthesia, pre-existing deficit, seizure, tingling, tremors, weakness, other Endocrine: Denies: no symptoms, excessive sweating, flushing, intolerance to cold, intolerance to heat, increased hunger, increased thirst, increased urine, unexplained weight gain, unexplained weight loss, other Hematologic/Lymphatic: Denies: no symptoms, anemia, easy bleeding, easy bruising, other Allergies: Coded Allergies: No Known Allergies (Unverified , 04/26/18) Subjective no acute events overnight. Patient feels much better today. tolerated liquid diet. Jaundice improved. Abdominal pain improved. Tremors resolved. Objective Last 24 Hour Vital Signs Date Time Temp Pulse Resp B/P (MAP) Pulse Ox O2 Delivery O2 Flow Rate FiO2 08/14/20 09:00 Room Air 08/14/20 08:38 121/76 08/14/20 08:00 98.0 82 18 115/72 (86) 97 08/14/20 06:57 76 19 121/76 97 08/14/20 06:27 79 20 125/73 98 08/14/20 04:00 97.2 87 18 124/76 (92) 99 08/14/20 01:51 98.1 08/14/20 00:13 87 20 129/73 96 08/14/20 00:00 97.9 85 20 135/77 (96) 97 08/13/20 23:43 89 20 134/77 99 08/13/20 21:00 Room Air 08/13/20 20:00 98.1 87 20 131/76 (94) 99 08/13/20 18:43 91 16 120/78 95 08/13/20 18:11 89 18 114/81 98 08/13/20 16:00 97.6 89 18 114/81 (92) 98 08/13/20 13:14 87 16 127/80 96 08/13/20 12:20 83 16 127/78 95 08/13/20 12:15 98.8 83 18 127/78 (94) 95 Intake and Output 08/13/20 08/14/20 19:00 07:00 Intake Total 1000 ml 650 ml Output Total 800 ml Balance 1000 ml -150 ml Intake Oral 650 ml Other 1000 ml Output Urine Total 800 ml Laboratory Tests 08/14/20 05:45: White Blood Count 7.0, Red Blood Count 4.41L, Hemoglobin 11.2L, Hematocrit 35.9L , Mean Corpuscular Volume 81, Mean Corpuscular Hemoglobin 25.3L, Mean Corpuscular Hemoglobin Concent 31.1L, Red Cell Distribution Width 19.5H, Platelet Count 83L, Mean Platelet Volume 8.5, Neutrophils (%) (Auto) , Lymphocytes (%) (Auto) , Monocytes (%) (Auto) , Eosinophils (%) (Auto) , Basophi ls (%) (Auto) , Differential Total Cells Counted 100, Neutrophils % (Manual) 75, Lymphocytes % (Manual) 18L, Monocytes % (Manual) 5, Eosinophils % (Manual) 2, Basophils % (Manual) 0, Band Neutrophils 0, Platelet Estimate DecreasedL, Platelet Morphology Normal, Hypochromasia 1+, Anisocytosis 2+, Sodium Level 131L , Potassium Level 3.2L, Chloride Level 96L, Carbon Dioxide Level 25, Anion Gap 10, Blood Urea Nitrogen 3L, Creatinine 0.8, Estimat Glomerular Filtration Rate > 60, Glucose Level 114H, Calcium Level 8.6, Phosphorus Level 7.0H, Magnesium Level 1.6L, Total Bilirubin 7.3H, Direct Bilirubin 5.8H, Aspartate Amino Transf (AST/SGOT) 224H, Alanine Aminotransferase (ALT/SGPT) 76, Alkaline Phosphatase 212H, Total Protein 6.2L, Albumin 3.0L, Globulin 3.2, Albumin/Globulin Ratio 0.9L, Lipase > 2000H Height (Feet): 5 Height (Inches): 7.00 Weight (Pounds): 175 General Appearance: no apparent distress, alert, alert oriented x3 EENT: PERRL/EOMI Neck: non-tender, normal inspection Cardiovascular: normal rate, regular rhythm, no JVD Respiratory/Chest: lungs clear, normal breath sounds, no respiratory distress Abdomen: normal bowel sounds, non tender, soft Extremities: normal range of motion, non-tender Edema: no edema noted Arm (L), no edema noted Arm (R), no edema noted Leg (L), no edema noted Leg (R), no edema noted Pedal (L), no edema noted Pedal (R), no edema noted Generalized Neurologic: field supervisor II-XII grossly normal, oriented x 3 Skin: normal pigmentation, warm/dry Assessment/Plan Assessment/Plan: Mr. Valero with hx of alcohol abuse admitted for abdominal pain, nausea, vomiting. 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 # Jaundice likely AH induced, obstructive Jaundice less likely # Transaminitis # Seizure 2/2 Alcohol Withdrawal # Alcohol Withdrawal # Thrombocytopenia 2/2 BM suppression from alcohol, possible splenic sequestration # Normocytic Anemia 2/2 likely ACD P: - hemodynamically stable - withdrawal signs better will d/c schedule ativan - ativan prn for break through seizures and withdrawal - [facility] protocol - CT abd reviewed showing early cirrhosis, hepatitis; pancreas no inflammation - MELD Na: 19 - Child Smith Score: B - Maddrey score 14 - no indications for steroids - f/u anti-smooth, ant-mitochondria, hep panel - seizure, fall precautions - hold heparin if Platelet < 50 - continue IV thiamine - multivitamins - IVF - advanced diet as tolerated - GI consult with Dr. Victoria, recs appreciated - /SW substance abuse program consultation CODE: Full GI: none Fluids: NS 150 Diet: full DVT: Heparin 5000U BID Dispo: pending resolution of pancreatitis, hepatitis and withdrawal Time spent on this encounter was 31 minutes which included 21 minutes of counseling and care coordination. I discussed with the nurse at bedside. Time of note may not reflect time patient was seen. Gilberto Hernandez D.O Aug 14, 2020 12:04
[2020-08-14] MEDS: Multivitamin w/Minerals tab ORAL SCH (13:50)
[2020-08-14] MEDS: Thiamine HCl 100 MG in D5W 55 ML IVPB SCH (13:50)
[2020-08-14 16:00] VITALS: BP 120/84
--- NOTE | 2020-08-14 16:16 | NUR ---
CASE MANAGEMENT:REVIEW SI;ALCOHOL WITHDRAWAL. PANCREATITIS. ALCOHOLIC HEPATITIS. JAUNDICE. 98.2 86 19 121/76 96% ON RA NA 131 K+ 3.2 OGIS 7.0 MAG 1.6 T-BILI 7.3 D-BILI 5.8 AST 224 ALP 212 ALB 3.0 LIPASE >2000 IS;MAG SULFATE IV ONCE K=DUR PO ONCE TRENTAL PO TID IVF KCL/NS @ 150 ML/HR ATIVAN IV Q6 HEPARIN SUBQ Q12 IVF LR @ 100 ML/HR THIAMINE IV Q24 ZOFRAN IV Q6 PRN DILAUDID IV Q3 PRN MED SURG STATUS DCP;PATIENT IS FROM HOME PLAN; CURRENTLY ON CLEAR LIQUID DIET ADVANCE DIET TOLERATED
[2020-08-14] MEDS ORDERED: Tubing IV Secondary IV ONE (16:52)
--- NOTE | 2020-08-14 19:30 | NUR ---
NURSE NOTES: Received report from kehinde chen. patient is on bed , awake and verbally responsive. pain rated as 5/10 on the abdomen. patient is aware about the parameters on giving pain medicine. scd's on. with iv line on the right ac running NS + 10 MEQ kcl at 150 ml/hr. patent and intact. uses urinal. on room air. no sob. reiterated to call and ask for assistance to prevent fall or injury. call light and light button within easy reach. bed locked and in lowest position. will continue plan of care.
--- NOTE | 2020-08-14 19:36 | NUR ---
NURSE HAND-OFF: Important Events on Shift:[nausea, vomiting x1. Replaced K and Mg] Patient Status: [stable] Diet: [pureed] Pending Orders: [aml: Mg, Iron panel, ferritin, CRP] Pending Results/Labs:[] Pending MD notification:[] Latest Vital Signs: Temperature 98.4 , Pulse 94 , B/P 120 /84 , Respiratory Rate 19 , O2 SAT 97 , Room Air, O2 Flow Rate . Vital Sign Comment: [] Latest Qureshi Fall Score: 20 Fall Risk: Low Risk Safety Measures: Call light Within Reach, Bed Alarm Zone 1, Side Rails Side Rails x3, Bed position Low and Locked. Fall Precautions: Yellow Socks Yellow Gown Door Sign Patient Fall Education Report given to [PHILIP Elise].
[2020-08-14 20:00] VITALS: BP 124/76
[2020-08-15] VITALS: BP 119/73
[2020-08-15 04:00] VITALS: BP 121/76
--- NOTE | 2020-08-15 06:21 | NUR ---
NURSE HAND-OFF: Important Events on Shift: PAIN MNGT; MONITOR FOR N/V Patient Status: STABLE Diet: REGULAR DIET PUREED MOIST; MAY ADVANCE DIET TOLERATED Pending Orders: Pending Results/Labs: Pending MD notification: Latest Vital Signs: Temperature 97.9 , Pulse 86 , B/P 121 /76 , Respiratory Rate 20 , O2 SAT 98 , Room Air, O2 Flow Rate . Vital Sign Comment: Latest Qureshi Fall Score: 20 Fall Risk: Low Risk Safety Measures: Call light Within Reach, Bed Alarm Zone 1, Side Rails Side Rails x3, Bed position Low and Locked. Fall Precautions: Yellow Socks Yellow Gown Door Sign Patient Fall Education
[2020-08-15 06:54] LABS: EOSINOPHILS % (AUTO) 0.7 % (0.0-3.0); HEMATOCRIT 38.1 % (42.0-52.0); HEMOGLOBIN 11.8 G/DL (14.2-18.0); LYMPHOCYTES % (AUTO) 9.9 % (20.0-45.0); MEAN CORPUSCULAR VOLUME 82 FL (80-99); NEUTROPHILS % (AUTO) 78.5 % (45.0-75.0); PLATELET COUNT 104 K/UL (150-450); RED BLOOD COUNT 4.64 M/UL (4.70-6.10); RED CELL DISTRIBUTION WIDTH 20.5 % (11.6-14.8); WHITE BLOOD COUNT 8.6 K/UL (4.8-10.8)
--- NOTE | 2020-08-15 06:54 | General Progress Note ---
Subjective ROS Limited/Unobtainable: Yes Allergies: Coded Allergies: No Known Allergies (Unverified , 04/26/18) Objective Last 24 Hour Vital Signs Date Time Temp Pulse Resp B/P (MAP) Pulse Ox O2 Delivery O2 Flow Rate FiO2 08/15/20 04:00 97.9 86 20 121/76 (91) 98 08/15/20 00:00 97.9 85 19 119/73 (88) 99 08/14/20 22:51 98.1 08/14/20 21:00 Room Air 08/14/20 20:00 98.1 88 19 124/76 (92) 98 08/14/20 19:36 88 20 97 Room Air 21 08/14/20 17:02 120/84 08/14/20 16:00 98.4 94 19 120/84 (96) 97 08/14/20 13:50 106/71 08/14/20 12:00 98.2 86 18 106/71 (83) 96 08/14/20 09:00 Room Air 08/14/20 08:38 121/76 08/14/20 08:00 98.0 82 18 115/72 (86) 97 08/14/20 06:57 76 19 121/76 97 Intake and Output 08/14/20 08/15/20 19:00 07:00 Intake Total 2056 ml 650 ml Output Total 100 ml 800 ml Balance 1956 ml -150 ml Intake Oral 650 ml IV Total 856 ml Other 1200 ml Output Urine Total 800 ml Emesis 100 ml # Bowel Movements 2 Laboratory Tests 08/15/20 06:10: White Blood Count [Pending], Red Blood Count [Pending], Hemoglobin [Pending], Hematocrit [Pending], Mean Corpuscular Volume [Pending], Mean Corpuscular Hemoglobin [Pending], Mean Corpuscular Hemoglobin Concent [Pending], Red Cell Distribution Width [Pending], Platelet Count [Pending], Mean Platelet Volume [Pending], Neutrophils (%) (Auto) [Pending], Lymphocytes (%) (Auto) [Pending], Monocytes (%) (Auto) [Pending], Eosinophils (%) (Auto) [Pending], Basophils (%) (Auto) [Pending], Sodium Level [Pending], Potassium Level [Pending], Chloride Level [Pending], Carbon Dioxide Level [Pending], Blood Urea Nitrogen [Pending], Creatinine [Pending], Estimat Glomerular Filtration Rate [Pending], Glucose Level [Pending], Calcium Level [Pending], Magnesium Level [Pending], Iron Level [Pending], Unsaturated Iron Binding [Pending], Ferritin [Pending], Total Bilirubin [Pending], Aspartate Amino Transf (AST/SGOT) [Pending], Alanine Aminotransferase (ALT/SGPT) [Pending], Alkaline Phosphatase [Pending], C- Reactive Protein, Quantitative [Pending], Total Protein [Pending], Albumin [Pending], Globulin [Pending], Amylase Level [Pending], Lipase [Pending] Height (Feet): 5 Height (Inches): 7.00 Weight (Pounds): 175 General Appearance: alert EENT: normal ENT inspection Neck: supple Cardiovascular: tachycardia Respiratory/Chest: decreased breath sounds Abdomen: hypoactive bowel sounds, distended, tender Extremities: non-tender Assessment/Plan Assessment/Plan: ETOH pancreatitis elevated LFTS anemia thrombocytopenia GB sludge GB polyp fatty liver RECOMMENDATIONS: 1. IV fluid. 2. Multivitamin and thiamine. 3. Benzodiazepine. 4. Follow laboratory parameters. 5. Trental for acute alcoholic hepatitis. 6. Discontinue alcohol use. Luis Armando Victoria MD Aug 15, 2020 06:54
[2020-08-15 07:08] LABS: % IRON SATURATION 8 % (15-50); IRON 33 ug/dL (50-175); TOTAL IRON BINDING CAPACITY 390 ug/dL (250-450)
--- NOTE | 2020-08-15 07:25 | NUR ---
NURSE NOTES: Received patient in bed,awake, alert and oriented x4. No seizure activity, side rails padded.Patient denies pain or discomfort. Patient uses urinal noted with yellowish urine. lung sound is clear, mild pain on right side abdomen but no pain meds needed per patient. will reassess. no episodes of vomiting this morning, will continue to monitor. IV is intact with IVF. Bed is i lowest position and locked. Will continue plan of care.
[2020-08-15 07:26] LABS: ALANINE AMINOTRANSFERASE 85 U/L (12-78); ALBUMIN 3.1 G/DL (3.4-5.0); ALBUMIN/GLOBULIN RATIO 0.7 (1.0-2.7); ALKALINE PHOSPHATASE 234 U/L (46-116); AMYLASE 322 U/L (25-115); ANION GAP 10 mmol/L (5-15); ASPARTATE AMINO TRANSFERASE 198 U/L (15-37); BILIRUBIN,TOTAL 8.1 MG/DL (0.2-1.0); BLOOD UREA NITROGEN 4 mg/dL (7-18); CALCIUM 8.4 MG/DL (8.5-10.1); CARBON DIOXIDE 23 MMOL/L (21-32); CHLORIDE 99 MMOL/L (98-107); CREATININE 0.8 MG/DL (0.55-1.30); FERRITIN 85 NG/ML (8-388); POTASSIUM 3.9 MMOL/L (3.5-5.1); SODIUM 132 MMOL/L (136-145)
[2020-08-15 07:28] LABS: BILIRUBIN,DIRECT 6.6 MG/DL (0.0-0.3)
--- NOTE | 2020-08-15 07:28 | NUR ---
HAND-OFF: Report given to kehinde graves.
[2020-08-15 08:00] VITALS: BP 131/84
[2020-08-15] MEDS: Multivitamin w/Minerals tab ORAL SCH (08:28)
[2020-08-15] MEDS: Heparin 5000 units/ml inj SUBQ SCH (08:32)
--- NOTE | 2020-08-15 08:34 | NUR ---
NURSE NOTES: Patient refused trental. RN re educated on ,edication and patient fully understood about meds but stated that " That medicine made me throw up yesterday. There is side effect of nausea /vomiting. Explained risks and benefits. Will follow up with doctor.
--- NOTE | 2020-08-15 09:40 | NUR ---
NURSE NOTES: Dr. james is aware of refusal of trental with no new order.
--- NOTE | 2020-08-15 11:15 | Discharge Summary ---
Discharge Summary Hospital Course Date of Admission Aug 11, 2020 at 22:47 Date of Discharge 08/15/2020 Admitting Diagnosis pancreatitis HPI Luis Felipe Canchola is a 30 year old male who was admitted on Aug 11, 2020 at 22:47 for Pancreatitis Consultations GI Hospital Course Patient was monitored for alcohol withdrawl and was given supportive treatment with IVF, thiamine and multivitamins. per GI, was started on trental for alcoholic hepatitis but patient refused taking it. His symptoms of nausea, vomiting, abdominal pain improved. Patient reporteldy had a few seconds of tonic clonic seizure witnessed by RN during hospital stay. on the day of d/c today, he is feeling well without any symptoms, and did not require any ativan for >24 suzanna rs. he is being d/c'ed home today in stable condition. alcohol abstinence further encouraged. no new medications. Spent 32 mins on review of relevant hospital record, including labs, imaging, medications, rehabilitation consultant notes. Discharge Condition Upon Discharge: stable Discharge Vital Signs Last Vital Signs Date Time Temp Pulse Resp B/P (MAP) Pulse Ox O2 Delivery O2 Flow Rate FiO2 08/15/20 09:00 Room Air 08/15/20 08:32 131/84 08/15/20 08:00 97.7 77 19 98 08/15/20 07:15 21 Discharge Disposition Patient was discharged to home Discharge Diagnoses: (1) Near syncope (2) Alcohol withdrawal (3) Alcohol intoxication (4) Pancreatitis, acute Mayco Logan MD Aug 15, 2020 11:15
[2020-08-15 12:00] VITALS: BP 127/81
[2020-08-15] MEDS: Thiamine HCl 100 MG in D5W 55 ML IVPB SCH (12:00)
--- NOTE | 2020-08-15 12:50 | NUR ---
NURSE NOTES: Patient's father will be [facility] in 10 mins. Patient tolerated with food without pain or GI issues.
--- NOTE | 2020-08-15 13:08 | NUR ---
NURSE NOTES: Patient discharged to home in stable condition. Prior to discharge,patient's condition was stable. Denied pain or discomfort. Denied nausea or vomiting. discharge instruction given to the patient including pacreatitis, and encouraged patient to stop drinking. Patient knows when to seek medical attention. Patient to continue to take home meds. Dr. james is aware of sodium level of 132 and lipase >2000. skin is intact, IV and ID were removed, no s/s of infection IV removal site. All belongings accounted for. Staff escorted patient to his car without issues.
--- NOTE | 2020-08-16 15:20 | NUR ---
INSURANCE DC SUMMARY/ INSTRUCTIONS/ PROGRESS NOTES (08/15/20) FAXED TO [facility] [phone]
== END 2020-08-15 13:14 | disposition home or self-care (01) | DRG 282 ==
LOC: EMR 20:35 → 4E 22:47 → EDBEDREQ 08-12 00:46 → 4E 08-14 16:30
DX: K85.20 Alcohol induced acute pancreatitis without necrosis or infection (principal); F10.239 Alcohol dependence with withdrawal, unspecified; K70.10 Alcoholic hepatitis without ascites; D69.6 Thrombocytopenia, unspecified; R56.9 Unspecified convulsions; K82.4 Cholesterolosis of gallbladder; K76.0 Fatty (change of) liver, not elsewhere classified
CPT/HCPCS: 36415; 70450; 74177; 76700; 80048; 80053; 80307; 81003; 82150; 82248; 82728; 83540; 83550; 83690; 83735; 84100; 85007; 85025; 85610; 85730; 86140; 86235; 86256; 86705; 86709; 86803; 87340; 93005; 94664; 96361; 96365; 96375; 99285; G0480; J2405; J2765; J7030; J8499; U0002

== ENCOUNTER 2020-09-21 16:22 | Inpatient (IN) | payer OTHER ==
[~2020-09-21] VITALS: Ht 170.2 cm; Wt 83.9 kg
[2020-09-21 16:38] VITALS: BP 117/63
[2020-09-21] MEDS ORDERED: Ketorolac 30mg Inj IV ONE (16:45)
[2020-09-21] MEDS ORDERED: Morphine Sulfate 2mg/ml Inj(IV/IM USE ONLY) IVP ONE (17:15)
[2020-09-21 17:44] LABS: ANION GAP 12 mmol/L (5-15); BLOOD UREA NITROGEN 29 mg/dL (7-18); CALCIUM 7.6 MG/DL (8.5-10.1); CARBON DIOXIDE 20 MMOL/L (21-32); CHLORIDE 101 MMOL/L (98-107); POTASSIUM 3.4 MMOL/L (3.5-5.1); SODIUM 133 MMOL/L (136-145)
[2020-09-21 17:47] LABS: INR 4.3 (0.9-1.1)
--- NOTE | 2020-09-21 17:52 | Diagnostic Imaging Report ---
EXAM: US Abdomen Complete CLINICAL HISTORY: PAIN TECHNIQUE: Real-time ultrasound of the abdomen with image documentation. COMPARISON: No relevant prior studies available. FINDINGS: Liver: Liver measures up to 17.2 cm with increased echogenicity. No intrahepatic bile duct dilation. Gallbladder: Gallstones and polyps with mild wall thickening measuring up to 6 mm likely secondary to contracted state. No pericholecystic fluid. Common bile duct: Common bile duct measures up to 4 mm. No stones. No dilation. Pancreas: Unremarkable as visualized. Kidneys: Right kidney measures up to 11.3 cm left kidney measures up to 12.0 cm. No stones. No solid mass. No hydronephrosis. Spleen: Measures up to 17.6 cm. Moderate splenomegaly. Aorta: Unremarkable. No aneurysm. Inferior vena cava: Unremarkable. IMPRESSION: 1. Hepatic steatosis. 2. Splenomegaly. 3. Gallstones and polyps noted within the gallbladder lumen. Mild wall thickening likely secondary contracted state.
[2020-09-21 17:55] LABS: ALANINE AMINOTRANSFERASE 45 U/L (12-78); ALBUMIN 1.5 G/DL (3.4-5.0); ALBUMIN/GLOBULIN RATIO 0.4 (1.0-2.7); ALKALINE PHOSPHATASE 420 U/L (46-116); ASPARTATE AMINO TRANSFERASE 125 U/L (15-37); BILIRUBIN,TOTAL 16.8 MG/DL (0.2-1.0)
[2020-09-21 17:58] LABS: BILIRUBIN,DIRECT 14.4 MG/DL (0.0-0.3)
--- NOTE | 2020-09-21 18:17 | Emergency Room Report ---
History of Present Illness General Chief Complaint: Abdominal Pain Source: Patient Present Illness HPI 30-year-old male with history of pancreatitis and alcohol abuse who is seen at [facility] 1 month ago here complaining of 3 days of right upper abdominal pain rating a 10 out of 10 without radiation. Scleral icterus noted. Patient reports that he has not has not had any alcohol since August 19, 2020. Com plains of nausea however denies vomiting. Denies diarrhea, fever and chills. Denies urinary symptoms. Also reports that he feels pruritus all over body. Also reports that he could not sleep last night due to pain. Vital signs within normal limits. Denies all other drug use. 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/18/20 COVID-19 Screening: Negative COVID-19 COVID-19 Testing Source: clinic Patient History Past Medical History: see triage record Past Surgical History: none Pertinent Family History: none Immunizations: UTD Reviewed Nursing Documentation: PMH: Agreed; PSxH: Agreed Nursing Documentation-PMH Hx Cancer: No Hx Gastrointestinal Problems: Yes - pancreatitis, gastritis, gall stones, esophagus varices Hx Neurological Problems: Yes - ARHTRITIS Hx Seizures: Yes Review of Systems All Other Systems: negative except mentioned in HPI Physical Exam Vital Signs Date Time Temp Pulse Resp B/P (MAP) Pulse Ox O2 Delivery O2 Flow Rate FiO2 09/21/20 16:27 98.1 124 19 117/63 (81) 98 Room Air Sp02 EP Interpretation: reviewed, normal General Appearance: no apparent distress, alert, GCS 15, non-toxic Head: normocephalic, atraumatic Eyes: bilateral eye normal inspection, bilateral eye PERRL ENT: hearing grossly normal, normal pharynx, no angioedema, normal voice Neck: full range of motion, supple/symm/no masses Respiratory: chest non-tender, lungs clear, normal breath sounds, speaking full sentences Cardiovascular #1: regular rate, rhythm, no edema Gastrointestinal: normal bowel sounds, non tender, soft, non-distended, no guarding, no rebound Rectal: deferred Genitourinary: normal inspection, no CVA tenderness Musculoskeletal: back normal, no calf tenderness Neurologic: alert, motor strength/tone normal, oriented x3, sensory intact, responsive, speech normal Psychiatric: judgement/insight normal, memory normal, mood/affect normal, no suicidal/homicidal ideation Skin: no rash Lymphatic: no adenopathy Procedures Critical Care Time Critical Care Time Total critical care time; approximately 35 minutes. Due to a high probability of clinically significant, life threatening deterioration, the patient required my highest level of preparedness to intervene emergently and I personally spent this critical care time directly and personally managing the patient. This critical care time included obtaining a history; examining the patient; pulse oximetry; ordering and reviewing of studies; arranging urgent treatment with development of a management plan; evaluation of patient's response to treatment; frequent reassessment; and, discussions with other providers. This critical care time was performed to assess and manage the high probability of imminent, life-threatening deterioration that could result in multiorgan failure it was exclusive of separate billable procedures and treating other patients and teaching time. Please see MDM section and the rest of the note for further information on patient assessment and treatment. Medical Decision Making PA Attestation All my diagnosis and treatment plans were reviewed ad discussed with my supervising physician Dr. Aiken Diagnostic Impression: Primary Impression: Liver failure Additional Impressions: Acute pancreatitis Anemia ER Course 30-year-old male with history of pancreatitis and alcohol abuse who is seen at [facility] 1 month ago here complaining of 3 days of right upper abdominal pain rating a 10 out of 10 without radiation. Scleral icterus noted. Patient reports that he has not has not had any alcohol since August 19, 2020. Complains of nausea however denies vomiting. Denies diarrhea, fever and chills. Denies urinary symptoms. Also reports that he feels pruritus all over body. Also reports that he could not sleep last night due to pain. Vital signs within normal limits. Denies all other drug use. Ddx considered but are not limited to: appendicitis, cholecystis, gastritis, gastroenteritis, UTI, pyelonephritis, SBO, diverticulitis, pancreatitis Vital signs: are WNL, pt. is afebrile H&PE are most consistent with: Liver failure, acute pancreatitis, anemia ORDERS: Blood culture, lactic acid ,abdominal pain order set, abdominal ultrasound, patient had a CT scan done 1 month ago ED INTERVENTIONS: Toradol, morphine, Zofran, Pepcid, Benadryl p.o., blood transfusion, Zosyn I spoke to from Dr. Jaffe group, presented the patient. And Dr. Miranda accepted however requested GI consult preferably at this time it web development consultant from a month ago, I contacted Dr. Sinha who did the initial visit in consultation a month ago for the same patient however he reported he was covering for Dr. Munroe that day and should contact him instead. I spoke to Dr. Munroe and he accepted to consult patient tomorrow. Patient was admited with diagnosis of liver failure, acute pancreatitis, anemia to Dr. Miranda under supervision of DrTavon: Nelli pt stable at time of admission EKG Diagnostic Results Rate: tachycardiac Rhythm: other - tachy ST Segments: no acute changes Other Impression No acute ST changes CT/MRI/US Diagnostic Results CT/MRI/US Diagnostic Results : Imaging Test Ordered: Ultrasound abdomen Impression COMPARISON: No relevant prior studies available. FINDINGS: Liver: Liver measures up to 17.2 cm with increased echogenicity. No intrahepatic bile duct dilation. Gallbladder: Gallstones and polyps with mild wall thickening measuring up to 6 mm likely secondary to contracted state. No pericholecystic fluid. Common bile duct: Common bile duct measures up to 4 mm. No stones. No dilation. Pancreas: Unremarkable as visualized. Kidneys: Right kidney measures up to 11.3 cm left kidney measures up to 12.0 cm. No stones. No solid mass. No hydronephrosis. Spleen: Measures up to 17.6 cm. Moderate splenomegaly. Aorta: Unremarkable. No aneurysm. Inferior vena cava: Unremarkable. IMPRESSION: 1. Hepatic steatosis. 2. Splenomegaly. 3. Gallstones and polyps noted within the gallbladder lumen. Mild wall thickening likely secondary contracted state. Last Vital Signs Date Time Temp Pulse Resp B/P (MAP) Pulse Ox O2 Delivery O2 Flow Rate FiO2 09/21/20 17:38 98.1 09/21/20 17:36 107 22 100 09/21/20 16:38 Room Air Disposition: ADMITTED INPATIENT Condition: Serious Referrals: [facility],REFERRING (PCP) Marcy Demarco Sep 21, 2020 18:17
[2020-09-21 18:57] LABS: HEMATOCRIT 19.5 % (42.0-52.0); MEAN CORPUSCULAR VOLUME 96 FL (80-99); PLATELET COUNT 325 K/UL (150-450); RED BLOOD COUNT 2.03 M/UL (4.70-6.10); RED CELL DISTRIBUTION WIDTH 23.4 % (11.6-14.8)
[2020-09-21 18:58] LABS: WHITE BLOOD COUNT 44.4 K/UL (4.8-10.8)
[2020-09-21 19:00] VITALS: BP 107/47
[2020-09-21] MEDS ORDERED: LORazepam Inj 2mg/ml 1ml IV ONE (19:15)
[2020-09-21] MEDS ORDERED: Piperacillin/Tazobactam 3.375 GM in NS 110 ML IVPB ONE (19:15)
[2020-09-21 22:00] VITALS: BP 106/40
[2020-09-22] VITALS (47 sets, daily range): BP systolic 44–117; BP diastolic 20–89
[2020-09-22 05:50] LABS: HEMATOCRIT 8.5 % (42.0-52.0); MEAN CORPUSCULAR VOLUME 98 FL (80-99); PLATELET COUNT 211 K/UL (150-450); RED BLOOD COUNT 0.87 M/UL (4.70-6.10); RED CELL DISTRIBUTION WIDTH 24.4 % (11.6-14.8)
[2020-09-22 05:56] LABS: HEMOGLOBIN 2.5 G/DL (14.2-18.0); WHITE BLOOD COUNT 58.4 K/UL (4.8-10.8)
[2020-09-22] MEDS ORDERED: Piperacillin/Tazobactam 3.375 GM in NS 110 ML IVPB SCH (06:00)
[2020-09-22 06:07] LABS: PARTIAL THROMBOPLASTIN TIME 121 SEC (23-33)
[2020-09-22 06:16] LABS: INR > 10.0 (0.9-1.1)
[2020-09-22 06:19] LABS: ALANINE AMINOTRANSFERASE 31 U/L (12-78); ALBUMIN 1.1 G/DL (3.4-5.0); ALBUMIN/GLOBULIN RATIO 0.6 (1.0-2.7); ALKALINE PHOSPHATASE 199 U/L (46-116); ANION GAP 26 mmol/L (5-15); ASPARTATE AMINO TRANSFERASE 142 U/L (15-37); BILIRUBIN,DIRECT 7.5 MG/DL (0.0-0.3); BILIRUBIN,TOTAL 8.4 MG/DL (0.2-1.0); BLOOD UREA NITROGEN 39 mg/dL (7-18); CALCIUM 7.4 MG/DL (8.5-10.1); CHLORIDE 110 MMOL/L (98-107); CREATININE 1.8 MG/DL (0.55-1.30); SODIUM 141 MMOL/L (136-145)
[2020-09-22 06:34] LABS: CARBON DIOXIDE 5 MMOL/L (21-32)
--- NOTE | 2020-09-22 07:08 | Emergency Room Report ---
History of Present Illness General Chief Complaint: Abdominal Pain Source: Patient Present Illness HPI I responded to CODE BLUE overhead at 0600. 2 rounds of CPR were performed prior to my arrival. Procedure note Cardiopulmonary Resuscitation by me: See code documentation for specific details. ACLS and BLS were performed with high quality chest compressions and minimal interruptions. Any reversible causes were assessed and treated. ROSC obtained Suspect hemorrhagic shock 2/2 end stage liver cirrhosis and GI bleed. GI paged by previous ER PA. Primary team aware. Verbally ordered 2U PRBC and 1U FFP. Patient will be placed on levophed drip and vasopressin. Procedure note Central Line Placement by me: Patient consented, sterilely draped, full prep, gown, glove, mask, time out performed. Maximal sterile barrier technique used. Anesthesia: 1% lidocaine locally Location: Right femoral Device: Multiple lumen Technique: Seldinger technique. Secured with suture. Results: Venous return from all ports with easy saline flush. No complications. Compl : None Guide wire was retrieved and disposed of. Procedure Note: Endotracheal Intubation by me: Pre assessment performed. See preceding note for details. Pre-oxygenation performed with 100% oxygen RSI: Performed w/o complication or hypoxic events. Medications as ordered. Emergency Endotracheal Intubation: Consent unable to be obtained due to emergent nature of procedure and airway assessment this patient was prepared for endotracheal intubation with preoxygenation and airway positioning. The patient underwent rapid sequence induction and endotracheal intubation utilizing direct visualization laryngoscopy. The endotracheal tube was placed between the vocal cords and placement was confirmed with fogging of the tube, end title CO2, and equal bilateral chest rise as well as absence of borborygmi over the epigastrium. Chest x-ray was obtained for final confirmation. There were no complications. Blade: MAC 4-0 ET Tube: 7.5cm Depth: 23 cm at the lip Complications: No hypoxic events or bradycardia Intubation confirmed by colorimetric CO2, equal breath sounds, quiet over the stomach. Intubated with full C spine precautions, with the assistance of faculty member. Chest X-ray: No acute disease. Normal heart size. Mediastinum normal. No infiltrate. No pneumothorax. ETT in appropriate position above Lily. Indication: ETT placement confirmation Impression: Appropriately positioned ETT. no ptx Views: 1 view The X-rays were independently viewed by me and interpreted contemporaneously by me. IMAGING ED Procedural Ultrasound by me: Central line placed by me using concurrent ultrasound guidance. Real time image archived in the medical record confirms vascular anatomy. 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 - 08/18/20 COVID-19 Screening: Negative COVID-19 COVID-19 Testing Source: clinic Nursing Documentation-PMH Hx Cancer: No Hx Gastrointestinal Problems: Yes - pancreatitis, gastritis, gall stones, esophagus varices Hx Neurological Problems: Yes - ARHTRITIS Hx Seizures: Yes Physical Exam Vital Signs Date Time Temp Pulse Resp B/P (MAP) Pulse Ox O2 Delivery O2 Flow Rate FiO2 09/21/20 16:27 98.1 124 19 117/63 (81) 98 Room Air 09/22/20 05:49 60 Sp02 EP Interpretation: reviewed Medical Decision Making Diagnostic Impression: Primary Impression: Liver failure Additional Impressions: Anemia Acute pancreatitis Cardiopulmonary arrest Hemorrhagic shock Acute respiratory failure Metabolic acidosis GI (gastrointestinal bleed) Hyperbilirubinemia Pancreatitis, acute Alcohol dependence Severe anemia Last Vital Signs Date Time Temp Pulse Resp B/P (MAP) Pulse Ox O2 Delivery O2 Flow Rate FiO2 09/22/20 05:49 89 18 100 60 09/22/20 04:00 98.1 117/61 (79) 09/21/20 23:46 Room Air Disposition: ADMITTED INPATIENT Admit Decision Time: 06:00 Condition: Serious Referrals: [facility],REFERRING (PCP) Breana Petty D.O. Sep 22, 2020 07:08
--- NOTE | 2020-09-22 07:23 | Diagnostic Imaging Report ---
EXAM: XR Chest, 1 View CLINICAL HISTORY: S/P INTUB TECHNIQUE: Frontal view of the chest. COMPARISON: No relevant prior studies available. FINDINGS: Lungs: Assessment of the lungs is slightly limited due to a very shallow inspiration. There is a faint patchy opacity in the right midlung laterally. There is a platelike density at the left midlung laterally, likely atelectasis but could represent a pneumonia. There is no area of consolidation. Pleural space: Unremarkable. No pneumothorax. Heart: Unremarkable. No cardiomegaly. Mediastinum: Unremarkable. Bones/joints: Unremarkable. Tubes, lines and devices: An endotracheal tube is in place with the tip 4.1 cm above the meghan. IMPRESSION: 1. ET tube in appropriate position. 2. Very faint right midlung opacity and patchy left lung opacity- although these findings could be due to a pneumonia, they may simply represent areas of subsegmental atelectasis. Correlate clinically.
[2020-09-22] MEDS ORDERED: Pantoprazole 80 MG in NS 250 ML IV SCH (07:30)
[2020-09-22] MEDS ORDERED: LR 1000ml 1,000 ML IV SCH (08:00)
[2020-09-22] MEDS ORDERED: Norepinephrine 4mg/NS Premix 246 ML IV SCH ×2 (08:00→15:00)
[2020-09-22] MEDS ORDERED: Vasopressin 100 UNITS in NS 95 ML IV SCH (08:30)
[2020-09-22] MEDS: DOPamine 400mg/250ml 250 ML IV SCH ×2 (09:28→12:27)
[2020-09-22] MEDS ORDERED: Phytonadione 1 MG in D5W 55 ML IVPB ONE (09:30)
--- NOTE | 2020-09-22 09:30 | History and Physical ---
History of Present Illness General Date patient seen: Sep 22, 2020 Reason for Hospitalization: Abdominal Pain Present Illness HPI History was taken from chart review and in speaking to GI sap consultant. At this point patient is unresponsive and intubated. In brief he is a 30 year old male with history of recurrent pancreatitis, ETOH cirrhosis who presented to the ED c/o RUQ abdominal pain and nausea for 1 day. He was noted to be severely jaundiced. Patient reported to the ED staff that his last alcohol intake was on August 19, 2020. He was afebrile, tachycardic in the ER. Hig Hgb was 6 and he received 1 unit of PRBC. GI consulted and patient was admitted to telemetry. at around 3 am he had hematemesis, became hypotensive, and CERAMIC CAPACITOR PROCESSOR called. He received more rbc. Around 6 am he coded, he was started on multiple pressors, received more prbc, ffp and vitamin k. I immediately notified his family. Sisters arrived at bedside. Allergies: Coded Allergies: No Known Allergies (Unverified , 04/26/18) COVID-19 Screening Contact w/high risk pt: No Recent Travel to affected area: No Experienced COVID-19 symptoms?: No Medication History Scheduled Omeprazole (Omeprazole), 40 MG ORAL DAILY Patient History Healthcare decision maker N Resuscitation status Advanced Directive on File Review of Systems ROS Narrative unable to heri due to patient intubated and sedated Physical Exam General Appearance: other - intubated sedated Lines, tubes and drains: central line HEENT: other - bleeding form both nostrils , scleral icterus- severe Neck: supple Respiratory/Chest: lungs clear, normal breath sounds Cardiovascular/Chest: normal rate, regular rhythm, other Abdomen: non tender, soft, no mass Extremities: normal inspection Skin Exam: jaundice Neurologic: other - intubated and sedated Musculoskeletal: normal muscle bulk Last 24 Hour Vital Signs Date Time Temp Pulse Resp B/P (MAP) Pulse Ox O2 Delivery O2 Flow Rate FiO2 09/22/20 09:28 58/28 09/22/20 08:10 71/25 09/22/20 06:31 83 14 50 09/22/20 05:49 89 18 100 60 09/22/20 04:00 98.1 114 26 117/61 (79) 95 09/22/20 04:00 114 09/22/20 00:00 109 09/22/20 00:00 97.1 103 22 86/58 (67) 99 09/21/20 23:46 Room Air 09/21/20 23:04 98.1 98 22 110/53 98 Room Air 09/21/20 22:00 98.1 103 20 106/40 100 Room Air 09/21/20 19:58 107 22 46/63 100 09/21/20 19:28 107 22 117/63 100 09/21/20 19:00 98.1 113 22 107/47 98 Room Air 09/21/20 17:59 98.1 09/21/20 17:38 98.1 09/21/20 17:36 107 22 100 09/21/20 16:38 124 19 Room Air 09/21/20 16:38 98.1 19 117/63 98 Room Air 09/21/20 16:27 98.1 124 19 117/63 (81) 98 Room Air Laboratory Tests Test 09/21/20 16:45 09/21/20 18:10 09/21/20 19:30 09/21/20 20:30 Prothrombin Time 42.1 SEC (9.30-11.50) H Prothromb Time International Ratio 4.3 (0.9-1.1) H Activated Partial Thromboplast Time 34 SEC (23-33) H Sodium Level 133 MMOL/L (136-145) L Potassium Level 3.4 MMOL/L (3.5-5.1) L Chloride Level 101 MMOL/L (98-107) Carbon Dioxide Level 20 MMOL/L (21-32) L Anion Gap 12 mmol/L (5-15) Blood Urea Nitrogen 29 mg/dL (7-18) H Creatinine 1.0 MG/DL (0.55-1.30) Estimat Glomerular Filtration Rate > 60 mL/min (>60) Glucose Level 124 MG/DL (74-106) H Calcium Level 7.6 MG/DL (8.5-10.1) L Total Bilirubin 16.8 MG/DL (0.2-1.0) H Direct Bilirubin 14.4 MG/DL (0.0-0.3) H Aspartate Amino Transf (AST/SGOT) 125 U/L (15-37) H Alanine Aminotransferase (ALT/SGPT) 45 U/L (12-78) Alkaline Phosphatase 420 U/L (46-116) H Total Protein 5.5 G/DL (6.4-8.2) L Albumin 1.5 G/DL (3.4-5.0) L Globulin 4.0 g/dL Albumin/Globulin Ratio 0.4 (1.0-2.7) L Lipase 685 U/L (73-393) H Serum Alcohol 4 mg/dL White Blood Count 44.4 K/UL (4.8-10.8) *H Red Blood Count 2.03 M/UL (4.70-6.10) L Hemoglobin 6.0 G/DL (14.2-18.0) *L Hematocrit 19.5 % (42.0-52.0) L Mean Corpuscular Volume 96 FL (80-99) Mean Corpuscular Hemoglobin 29.5 PG (27.0-31.0) Mean Corpuscular Hemoglobin Concent 30.8 G/DL (32.0-36.0) L Red Cell Distribution Width 23.4 % (11.6-14.8) H Platelet Count 325 K/UL (150-450) Mean Platelet Volume 7.1 FL (6.5-10.1) Neutrophils (%) (Auto) % (45.0-75.0) Lymphocytes (%) (Auto) % (20.0-45.0) Monocytes (%) (Auto) % (1.0-10.0) Eosinophils (%) (Auto) % (0.0-3.0) Basophils (%) (Auto) % (0.0-2.0) Differential Total Cells Counted 100 Neutrophils % (Manual) 75 % (45-75) Lymphocytes % (Manual) 5 % (20-45) L Monocytes % (Manual) 4 % (1-10) Eosinophils % (Manual) 5 % (0-3) H Basophils % (Manual) 0 % (0-2) Metamyelocytes % 1 % (0-0) H Myelocytes % 1 % (0-0) H Band Neutrophils 9 % (0-8) H Platelet Estimate Adequate Platelet Morphology Normal Hypochromasia 3+ Anisocytosis 2+ Lactic Acid Level 2.10 mmol/L (0.4-2.0) H 3.60 mmol/L (0.66-2.22) H Test 12/4/20 04:44 09/22/20 05:20 09/22/20 05:30 POC Whole Blood Glucose 207 MG/DL (74-106) H White Blood Count 58.4 K/UL (4.8-10.8) *H Red Blood Count 0.87 M/UL (4.70-6.10) L Hemoglobin 2.5 G/DL (14.2-18.0) Hematocrit 8.5 % (42.0-52.0) #L Mean Corpuscular Volume 98 FL (80-99) Mean Corpuscular Hemoglobin 28.7 PG (27.0-31.0) Mean Corpuscular Hemoglobin Concent 29.3 G/DL (32.0-36.0) L Red Cell Distribution Width 24.4 % (11.6-14.8) H Platelet Count 211 K/UL (150-450) Mean Platelet Volume 7.5 FL (6.5-10.1) Neutrophils (%) (Auto) % (45.0-75.0) Lymphocytes (%) (Auto) % (20.0-45.0) Monocytes (%) (Auto) % (1.0-10.0) Eosinophils (%) (Auto) % (0.0-3.0) Basophils (%) (Auto) % (0.0-2.0) Neutrophils % (Manual) Pending Lymphocytes % (Manual) Pending Platelet Estimate Pending Platelet Morphology Pending Prothrombin Time 93.8 SEC (9.30-11.50) H Prothromb Time International Ratio > 10.0 (0.9-1.1) *H Activated Partial Thromboplast Time 121 SEC (23-33) H Sodium Level 141 MMOL/L (136-145) Potassium Level 6.0 MMOL/L (3.5-5.1) #*H Chloride Level 110 MMOL/L (98-107) H Carbon Dioxide Level 5 MMOL/L (21-32) *L Anion Gap 26 mmol/L (5-15) H Blood Urea Nitrogen 39 mg/dL (7-18) H Creatinine 1.8 MG/DL (0.55-1.30) #H Estimat Glomerular Filtration Rate 44.5 mL/min (>60) Glucose Level 247 MG/DL (74-106) #H Lactic Acid Level 20.10 mmol/L (0.4-2.0) H Calcium Level 7.4 MG/DL (8.5-10.1) L Total Bilirubin 8.4 MG/DL (0.2-1.0) H Direct Bilirubin 7.5 MG/DL (0.0-0.3) H Aspartate Amino Transf (AST/SGOT) 142 U/L (15-37) H Alanine Aminotransferase (ALT/SGPT) 31 U/L (12-78) Alkaline Phosphatase 199 U/L (46-116) H Troponin I 0.023 ng/mL (0.000-0.056) Total Protein 2.9 G/DL (6.4-8.2) #L Albumin 1.1 G/DL (3.4-5.0) L Globulin 1.8 g/dL Albumin/Globulin Ratio 0.6 (1.0-2.7) L Hepatitis A IgM Antibody Pending Hepatitis B Surface Antigen Pending Hepatitis B Core IgM Antibody Pending Hepatitis C Antibody Pending HIV (1&2) Antibody Rapid Negative (NEGATIVE) Arterial Blood pH 6.565 (7.350-7.450) Arterial Blood Partial Pressure CO2 28.9 mmHg (35.0-45.0) L Arterial Blood Partial Pressure O2 442.1 mmHg (75.0-100.0) H Arterial Blood HCO3 2.6 mmol/L (22.0-26.0) *L Arterial Blood Oxygen Saturation 99.4 % (95-100) Arterial Blood Base Excess -30.8 (-2-2) *L Josias Test Positive Height (Feet): 5 Height (Inches): 7.00 Weight (Pounds): 185 Medications Current Medications Medications (Trade) Dose Ordered Sig/Solis Route PRN Reason Start Time Stop Time Status Last Admin Dose Admin Albumin Human 100 ml @ 100 mls/hr ONCE IV 09/22/20 09:00 09/22/20 10:00 09/22/20 09:28 Ceftriaxone Sodium 1 gm/ Dextrose 55 ml @ 110 mls/hr EVERY 12 HOURS IVPB 09/22/20 10:00 09/29/20 09:59 Dopamine HCl/ Dextrose 250 ml @ 62.936 mls/ hr Q24H IV 09/22/20 07:30 09/25/20 07:18 09/22/20 09:28 Lactated Ringer's 1,000 ml @ 100 mls/hr Q10H IV 09/22/20 08:00 10/22/20 07:59 09/22/20 08:10 Norepinephrine Bitartrate 246 ml @ 0 mls/hr Q24H IV 09/22/20 08:00 09/25/20 07:29 09/22/20 08:10 Octreotide Acetate (SandoSTATIN) 50 mcg ONCE ONCE IVP 09/22/20 10:00 09/22/20 10:01 Ondansetron HCl (Zofran) 4 mg Q6H PRN IVP Nausea & Vomiting 09/22/20 05:30 10/22/20 05:29 Pantoprazole 80 mg/Sodium Chloride 250 ml @ 25 mls/hr Q10H IV 09/22/20 07:30 10/22/20 07:29 Phytonadione 1 mg/ Dextrose 55.5 ml @ 222 mls/hr ONCE ONCE IVPB 09/22/20 09:30 09/22/20 09:44 Piperacillin Sod/ Tazobactam Sod 3.375 gm/Sodium Chloride 110 ml @ 27.5 mls/hr EVERY 8 HOURS IVPB 09/22/20 06:00 09/27/20 05:59 Vasopressin 100 units/Sodium Chloride 100 ml @ 0 mls/hr Q24H IV 09/22/20 08:30 09/25/20 08:18 Assessment/Plan Problem List: (1) Metabolic acidosis ICD Codes: E87.2 - Acidosis SNOMED: 50000234 (2) Acute respiratory failure ICD Codes: J96.00 - Acute respiratory failure, unspecified whether with hypoxia or hypercapnia SNOMED: 31529031 (3) Cardiopulmonary arrest ICD Codes: I46.9 - Cardiac arrest, cause unspecified SNOMED: 458968435 (4) Acute pancreatitis ICD Codes: K85.90 - Acute pancreatitis without necrosis or infection, unspecified SNOMED: 914249957 (5) Hyperbilirubinemia ICD Codes: E80.6 - Other disorders of bilirubin metabolism SNOMED: 48107034 (6) Liver failure ICD Codes: K72.90 - Hepatic failure, unspecified without coma SNOMED: 90300413 (7) Alcohol dependence ICD Codes: F10.20 - Alcohol dependence, uncomplicated SNOMED: 58752835 (8) Abdominal pain ICD Codes: R10.9 - Unspecified abdominal pain SNOMED: 42818366 (9) Anemia ICD Codes: D64.9 - Anemia, unspecified SNOMED: 084255025 (10) GI (gastrointestinal bleed) ICD Codes: K92.2 - Gastrointestinal hemorrhage, unspecified SNOMED: 77566289 (11) Hemorrhagic shock ICD Codes: R57.8 - Other shock SNOMED: 556289 (12) Severe anemia ICD Codes: D64.9 - Anemia, unspecified SNOMED: 681481318 (13) Esophageal varices ICD Codes: I85.00 - Esophageal varices without bleeding SNOMED: 56773554 (14) Alcoholic cirrhosis ICD Codes: K70.30 - Alcoholic cirrhosis of liver without ascites SNOMED: 801665185 Status: deteriorating Assessment/Plan: Keep in ICu Vent management per Dr. Carrington, critical care Continue pressors for MAP>60 PRBC and FFP transfusion. Keep Hgb >6 s/p Vitamin K Bicarb drip ABG ordered- unable to obtain GI consult d/w 2 sisters. Family arrived at bedside. Patient to remain full code Prognosis extremely poor Jorge A Nobles M.D. Sep 22, 2020 09:30
[2020-09-22] MEDS ORDERED: SandoSTATIN 50mcg Inj IVP ONE (10:00)
[2020-09-22] MEDS ORDERED: cefTRIAXone 1 GM in D5W 55 ML IVPB SCH (10:00)
[2020-09-22] MEDS ORDERED: Phenylephrine 10mg/ml Vial IVP ONE (10:30)
[2020-09-22] MEDS ORDERED: Phenylephrine 100 MG in D5W 500ml 490 ML IV SCH (10:30)
[2020-09-22] MEDS ORDERED: Sodium Bicarbonate 150 ML in D5W 1000ml 1,000 ML IV STA (10:41)
--- NOTE | 2020-09-22 12:15 | General Progress Note ---
Subjective ROS Limited/Unobtainable: No Allergies: Coded Allergies: No Known Allergies (Unverified , 04/26/18) Objective Last 24 Hour Vital Signs Date Time Temp Pulse Resp B/P (MAP) Pulse Ox O2 Delivery O2 Flow Rate FiO2 09/22/20 10:58 62 53/23 09/22/20 09:28 58/28 09/22/20 08:10 71/25 09/22/20 06:31 83 14 50 09/22/20 05:49 89 18 100 60 09/22/20 04:00 98.1 114 26 117/61 (79) 95 09/22/20 04:00 114 09/22/20 00:00 109 09/22/20 00:00 97.1 103 22 86/58 (67) 99 09/21/20 23:46 Room Air 09/21/20 23:04 98.1 98 22 110/53 98 Room Air 09/21/20 22:00 98.1 103 20 106/40 100 Room Air 09/21/20 19:58 107 22 46/63 100 09/21/20 19:28 107 22 117/63 100 09/21/20 19:00 98.1 113 22 107/47 98 Room Air 09/21/20 17:59 98.1 09/21/20 17:38 98.1 09/21/20 17:36 107 22 100 09/21/20 16:38 124 19 Room Air 09/21/20 16:38 98.1 19 117/63 98 Room Air 09/21/20 16:27 98.1 124 19 117/63 (81) 98 Room Air Laboratory Tests 09/21/20 16:45: Prothrombin Time 42.1H, Prothromb Time International Ratio 4.3H, Activated Partial Thromboplast Time 34H, Sodium Level 133L, Potassium Level 3.4L, Chloride Level 101, Carbon Dioxide Level 20L, Anion Gap 12, Blood Urea Nitrogen 29H, Creatinine 1.0, Estimat Glomerular Filtration Rate > 60, Glucose Level 124H, Calcium Level 7.6L, Total Bilirubin 16.8H, Direct Bilirubin 14.4H, Aspartate Amino Transf (AST/SGOT) 125H, Alanine Aminotransferase (ALT/SGPT) 45, Alkaline Phosphatase 420H, Total Protein 5.5L, Albumin 1.5L, Globulin 4.0, Albumin/Globulin Ratio 0.4L, Lipase 685H, Serum Alcohol 4 09/21/20 18:10: White Blood Count 44.4*H, Red Blood Count 2.03L, Hemoglobin 6.0*L, Hematocrit 19.5L, Mean Corpuscular Volume 96, Mean Corpuscular Hemoglobin 29.5, Mean Corpuscular Hemoglobin Concent 30.8L, Red Cell Distribution Width 23.4H, Platelet Count 325, Mean Platelet Volume 7.1, Neutrophils (%) (Auto) , Lymphocytes (%) (Auto) , Monocytes (%) (Auto) , Eosinophils (%) (Auto) , Basophils (%) (Auto) , Differential Total Cells Counted 100, Neutrophils % (Manual) 75, Lymphocytes % (Manual) 5L, Monocytes % (Manual) 4, Eosinophils % (Manual) 5H, Basophils % (Manual) 0, Metamyelocytes % 1H, Myelocytes % 1H, Band Neutrophils 9H, Platelet Estimate Adequate, Platelet Morphology Normal, Hypochromasia 3+, Anisocytosis 2+ 09/21/20 19:30: Lactic Acid Level 2.10H 09/21/20 20:30: Lactic Acid Level 3.60H 09/22/20 04:44: POC Whole Blood Glucose 207H 09/22/20 05:20: White Blood Count 58.4*H, Red Blood Count 0.87L, Hemoglobin 2.5#*L, Hematocrit 8.5#L, Mean Corpuscular Volume 98, Mean Corpuscular Hemoglobin 28.7, Mean Corpuscular Hemoglobin Concent 29.3L, Red Cell Distribution Width 24.4H, Platelet Count 211, Mean Platelet Volume 7.5, Neutrophils (%) (Auto) , Lymphocytes (%) (Auto) , Monocytes (%) (Auto) , Eosinophils (%) (Auto) , Basophils (%) (Auto) , Neutrophils % (Manual) [Pending], Lymphocytes % (Manual) [Pending], Platelet Estimate [Pending], Platelet Morphology [Pending], Prothrombin Time 93.8H, Prothromb Time International Ratio > 10.0*H, Activated Partial Thromboplast Time 121H, Sodium Level 141, Potassium Level 6.0#*H, Chloride Level 110H, Carbon Dioxide Level 5*L, Anion Gap 26H, Blood Urea Nitrogen 39H, Creatinine 1.8#H, Estimat Glomerular Filtration Rate 44.5, Glucose Level 247#H, Lactic Acid Level 20.10H, Calcium Level 7.4L, Total Bilirubin 8.4H , Direct Bilirubin 7.5H, Aspartate Amino Transf (AST/SGOT) 142H, Alanine Willett otransferase (ALT/SGPT) 31, Alkaline Phosphatase 199H, Troponin I 0.023, Total Protein 2.9#L, Albumin 1.1L, Globulin 1.8, Albumin/Globulin Ratio 0.6L, Hepatitis A IgM Antibody [Pending], Hepatitis B Surface Antigen [Pending], Hepatitis B Core IgM Antibody [Pending], Hepatitis C Antibody [Pending], HIV (1&2) Antibody Rapid Negative 09/22/20 05:30: Arterial Blood pH 6.565*L, Arterial Blood Partial Pressure CO2 28.9L, Arterial Blood Partial Pressure O2 442.1H, Arterial Blood HCO3 2.6*L, Arterial Blood Oxygen Saturation 99.4, Arterial Blood Base Excess -30.8*L, Josias Test Positive Height (Feet): 5 Height (Inches): 7.00 Weight (Pounds): 185 General Appearance: lethargic EENT: scleral icterus Neck: supple Cardiovascular: bradycardia Respiratory/Chest: decreased breath sounds Abdomen: hypoactive bowel sounds Extremities: non-tender Assessment/Plan Problem List: (1) Alcoholic cirrhosis ICD Codes: K70.30 - Alcoholic cirrhosis of liver without ascites SNOMED: 455476684 (2) Esophageal varices ICD Codes: I85.00 - Esophageal varices without bleeding SNOMED: 14510180 (3) Severe anemia ICD Codes: D64.9 - Anemia, unspecified SNOMED: 832476003 (4) Hemorrhagic shock ICD Codes: R57.8 - Other shock SNOMED: 334740 (5) GI (gastrointestinal bleed) ICD Codes: K92.2 - Gastrointestinal hemorrhage, unspecified SNOMED: 17317615 (6) Liver failure ICD Codes: K72.90 - Hepatic failure, unspecified without coma SNOMED: 39548925 Status: deteriorating Assessment/Plan: on multiple pressors multi organ failure family at the bedside poor prognosis cont current meds and care Luis Armando Victoria MD Sep 22, 2020 12:15
[2020-09-22 15:25] LABS: HEMATOCRIT 10.1 % (42.0-52.0); MEAN CORPUSCULAR VOLUME 95 FL (80-99); PLATELET COUNT 115 K/UL (150-450); RED BLOOD COUNT 1.06 M/UL (4.70-6.10); RED CELL DISTRIBUTION WIDTH 16.3 % (11.6-14.8)
[2020-09-22] MEDS ORDERED: NS 275ml ONE (15:42)
[2020-09-22] MEDS ORDERED: Tubing IV Blood Pump IV ONE (15:42)
[2020-09-22 15:44] LABS: WHITE BLOOD COUNT 49.5 K/UL (4.8-10.8)
--- NOTE | 2020-09-22 16:00 | Consultation ---
DATE OF CONSULTATION: 09/22/2020 PULMONARY CONSULTATION CONSULTING PHYSICIAN: Jatin Carrington M.D. HISTORY OF PRESENT ILLNESS: This is a 30-year-old male who has a history of liver cirrhosis, likely alcohol-related. He was previously admitted to this hospital and is again admitted now with abdominal pain, nausea, and vomiting. He is noted to be severely jaundiced. Overnight, the patient had , subsequently was intubated. Currently, he is maxed out on pressors. There is a right femoral central line in place, which is infusing three pressors. He is having hemoptysis and hematemesis. His most recent lab testings show hemoglobin now of 2.5, white count 58,000, platelet count 325,000. ABG 6.5, pCO2 28, pO2 442. Chemistry showed creatinine 1.8. INR greater than 10. Alcohol level is elevated to 4. HIV test is negative. REVIEW OF SYSTEMS: Not obtainable. PAST MEDICAL HISTORY: Liver cirrhosis. PHYSICAL EXAMINATION: GENERAL: A 30-year-old male. VITAL SIGNS: Blood pressure is 70/20, heart rate is 84, respirations are 20, T-max 98.1, O2 sat 60% on monitor. HEENT: Unremarkable. Endotracheal tube is in place. LUNGS: Clear breath sounds. ABDOMEN: Distended. EXTREMITIES: There is no edema. Right femoral triple-lumen catheter is in place. LABORATORY DATA: Discussed above. IMPRESSION: 1. Septic shock. 2. Hypovolemic shock. 3. Upper GI bleed. 4. Severe anemia. 5. Liver cirrhosis. 6. Hepatic encephalopathy. 7. Liver failure. 8. Kidney disease. DISCUSSION: Prognosis is grave. The patient needs large volume transfusions. He needs pressors for max support. I will start him on a bicarbonate drip to correct his severe acidosis. Discussed with Dr. Nobles. Jaitn Carrington M.D. DR: RENE JOB#: [id number] CC:
--- NOTE | 2020-09-22 16:01 | Emergency Room Report ---
Physical Exam Called for CODE BLUE in the ICU. Patient with cirrhosis was admitted for bleeding and critical anemia. Apparently his hemoglobin was 2.5 this morning. He was deceived blood transfusions and plasma. Currently is on 3 pressors and his blood pressure has been low. Last bicarbonate was 20. The patient's rhythm was asystole and 1 amp of epinephrine had been delivered prior to my arrival. The patient has been unresponsive for the duration of the current nurses shift. Last 24 Hour Vital Signs Date Time Temp Pulse Resp B/P (MAP) Pulse Ox O2 Delivery O2 Flow Rate FiO2 09/22/20 15:02 49/30 09/22/20 13:13 65 19 58/25 (36) 100 09/22/20 13:00 64 18 48/28 (35) 100 09/22/20 12:45 63 19 48/26 (33) 100 09/22/20 12:39 62 17 48/29 (35) 100 09/22/20 12:35 62 18 47/22 (30) 100 09/22/20 12:27 93/34 09/22/20 12:01 62 19 93/34 (53) 100 09/22/20 12:00 96.0 61 19 100 09/22/20 11:50 61 22 44/22 (29) 100 09/22/20 11:40 60 23 66/44 (51) 100 09/22/20 11:31 60 23 50/32 (38) 100 09/22/20 11:30 60 24 81/59 (66) 100 09/22/20 11:20 64 20 50 09/22/20 11:20 60 21 46/35 (39) 100 09/22/20 11:10 61 19 73/60 (64) 100 09/22/20 11:00 62 19 70/53 (59) 100 09/22/20 10:58 62 53/23 09/22/20 10:50 63 20 53/23 (33) 100 09/22/20 10:40 66 21 52/21 (31) 100 09/22/20 10:30 68 17 54/30 (38) 100 09/22/20 10:20 69 22 58/27 (37) 100 09/22/20 10:12 70 26 55/26 (36) 100 09/22/20 10:00 71 25 51/33 (39) 100 09/22/20 09:28 58/28 09/22/20 09:15 72 17 100 09/22/20 09:13 73 18 77/28 (44) 100 09/22/20 09:06 72 18 54/28 (37) 100 09/22/20 09:00 73 17 56/28 (37) 99 09/22/20 08:50 73 16 58/22 (34) 100 09/22/20 08:45 73 19 99 09/22/20 08:40 73 17 70/27 (41) 97 09/22/20 08:30 73 35 66/32 (43) 98 09/22/20 08:20 74 19 79/27 (44) 98 09/22/20 08:15 74 19 98 09/22/20 08:10 71/25 09/22/20 08:10 74 19 75/30 (45) 99 09/22/20 08:00 74 19 70/35 (47) 97 09/22/20 07:50 74 20 81/31 (48) 98 09/22/20 07:45 74 20 98 09/22/20 07:40 74 20 115/29 (57) 99 09/22/20 07:30 75 19 91/30 (50) 99 09/22/20 07:20 76 19 97/27 (50) 100 09/22/20 07:15 76 19 100 09/22/20 07:10 76 20 105/30 (55) 100 09/22/20 07:00 95.0 76 18 95/34 (54) 100 09/22/20 06:50 83 14 100 Mechanical Ventilator 50 09/22/20 06:31 83 14 50 09/22/20 05:49 89 18 100 60 09/22/20 04:00 98.1 114 26 117/61 (79) 95 09/22/20 04:00 114 09/22/20 00:00 109 09/22/20 00:00 97.1 103 22 86/58 (67) 99 09/21/20 23:46 Room Air 09/21/20 23:04 98.1 98 22 110/53 98 Room Air 09/21/20 22:00 98.1 103 20 106/40 100 Room Air 09/21/20 19:58 107 22 46/63 100 09/21/20 19:28 107 22 117/63 100 09/21/20 19:00 98.1 113 22 107/47 98 Room Air 09/21/20 17:59 98.1 09/21/20 17:38 98.1 09/21/20 17:36 107 22 100 09/21/20 16:38 124 19 Room Air 09/21/20 16:38 98.1 19 117/63 98 Room Air 09/21/20 16:27 98.1 124 19 117/63 (81) 98 Room Air Sp02 EP Interpretation: reviewed, normal General Appearance: severe distress - But unresponsive, Chronically Ill Head: normocephalic, atraumatic Eyes: bilateral eye conjunctivae pale, bilateral eye scleral icterus, bilateral eye other - Periorbital edema ENT: other - Blood from endotracheal tube Neck: other - Flaccid Respiratory: other - Good chest rise Cardiovascular #1: other - Pulses only with CPR Cardiovascular #2: 2+ femoral (R) Gastrointestinal: distended, decreased bowel sounds Genitourinary: other - Arredondo Musculoskeletal: other - Flaccid Neurologic: other - Unresponsive Psychiatric: other - Unresponsive Skin: jaundice, pallor CPR/Code Blue CPR/Code Blue Narrative Called for CODE BLUE. Epinephrine administered x1 before my arrival. CPR being performed by a respiratory therapist and generating pulses and in compliance with AHA guidelines and supervised by me. Patient asystolic after 1 epinephrine. For more amps of epinephrine delivered during the code. Review of transfusion and lab records. Discussion of the possibility of administering blood. Review of labs with reported bicarb of 20. Bicarbonate not indicated in this situation. The patient is on 4 pressors and remains this is asystolic. Family brought back to the room and prognosis discussed with them. Patient demonstrates cardiac unresponsiveness. Code terminated and patient pronounced at 1543. Medical Decision Making Diagnostic Impression: Primary Impression: Cardiopulmonary arrest Additional Impressions: Liver failure Qualified Codes: K72.01 - Acute and subacute hepatic failure with coma Hemorrhagic shock Severe anemia ER Course Patient admitted for liver failure and hemorrhagic shock. He sustained a cardiac arrest prior to the 1 at this time. Please see procedure note. Patient remained asystolic for 4 rounds of epinephrine. Family was brought in. Patient demonstrated cardiopulmonary responsiveness. The code was stopped and the patient was pronounced at 1543. Laboratory Tests Test 09/21/20 16:45 09/21/20 18:10 09/21/20 19:30 09/21/20 20:30 Prothrombin Time 42.1 SEC (9.30-11.50) H Prothrombin Time INR 4.3 (0.9-1.1) H Activated Partial Thromboplast Time 34 SEC (23-33) H Sodium Level 133 MMOL/L (136-145) L Potassium Level 3.4 MMOL/L (3.5-5.1) L Chloride Level 101 MMOL/L (98-107) Carbon Dioxide Level 20 MMOL/L (21-32) L Anion Gap 12 mmol/L (5-15) Blood Urea Nitrogen 29 mg/dL (7-18) H Creatinine 1.0 MG/DL (0.55-1.30) Estimated Glomerular Filtration Rate > 60 mL/min (>60) Glucose Level 124 MG/DL (74-106) H Calcium Level 7.6 MG/DL (8.5-10.1) L Total Bilirubin 16.8 MG/DL (0.2-1.0) H Direct Bilirubin 14.4 MG/DL (0.0-0.3) H Aspartate Amino Transferase (AST) 125 U/L (15-37) H Alanine Aminotransferase (ALT) 45 U/L (12-78) Alkaline Phosphatase 420 U/L (46-116) H Total Protein 5.5 G/DL (6.4-8.2) L Albumin 1.5 G/DL (3.4-5.0) L Globulin 4.0 g/dL Albumin/Globulin Ratio 0.4 (1.0-2.7) L Lipase 685 U/L (73-393) H Serum Alcohol 4 mg/dL White Blood Count 44.4 K/UL (4.8-10.8) *H Red Blood Count 2.03 M/UL (4.70-6.10) L Hemoglobin 6.0 G/DL (14.2-18.0) *L Hematocrit 19.5 % (42.0-52.0) L Mean Corpuscular Volume 96 FL (80-99) Mean Corpuscular Hemoglobin 29.5 PG (27.0-31.0) Mean Corpuscular Hemoglobin Concent 30.8 G/DL (32.0-36.0) L Red Cell Distribution Width 23.4 % (11.6-14.8) H Platelet Count 325 K/UL (150-450) Mean Platelet Volume 7.1 FL (6.5-10.1) Neutrophils (%) (Auto) % (45.0-75.0) Lymphocytes (%) (Auto) % (20.0-45.0) Monocytes (%) (Auto) % (1.0-10.0) Eosinophils (%) (Auto) % (0.0-3.0) Basophils (%) (Auto) % (0.0-2.0) Differential Total Cells Counted 100 Neutrophils % (Manual) 75 % (45-75) Lymphocytes % (Manual) 5 % (20-45) L Monocytes % (Manual) 4 % (1-10) Eosinophils % (Manual) 5 % (0-3) H Basophils % (Manual) 0 % (0-2) Metamyelocytes % 1 % (0-0) H Myelocytes % 1 % (0-0) H Band Neutrophils 9 % (0-8) H Platelet Estimate Adequate Platelet Morphology Normal Hypochromasia 3+ Anisocytosis 2+ Lactic Acid Level 2.10 mmol/L (0.4-2.0) H 3.60 mmol/L (0.66-2.22) H Test 09/22/20 04:44 09/22/20 05:20 09/22/20 05:30 09/22/20 15:15 POC Whole Blood Glucose 207 MG/DL (74-106) H White Blood Count 58.4 K/UL (4.8-10.8) *H 49.5 K/UL (4.8-10.8) *H Red Blood Count 0.87 M/UL (4.70-6.10) L 1.06 M/UL (4.70-6.10) L Hemoglobin 2.5 G/DL (14.2-18.0) 3.0 G/DL (14.2-18.0) *L Hematocrit 8.5 % (42.0-52.0) #L 10.1 % (42.0-52.0) L Mean Corpuscular Volume 98 FL (80-99) 95 FL (80-99) Mean Corpuscular Hemoglobin 28.7 PG (27.0-31.0) 28.6 PG (27.0-31.0) Mean Corpuscular Hemoglobin Concent 29.3 G/DL (32.0-36.0) L 30.0 G/DL (32.0-36.0) L Red Cell Distribution Width 24.4 % (11.6-14.8) H 16.3 % (11.6-14.8) H Platelet Count 211 K/UL (150-450) 115 K/UL (150-450) L Mean Platelet Volume 7.5 FL (6.5-10.1) 9.2 FL (6.5-10.1) Neutrophils (%) (Auto) % (45.0-75.0) % (45.0-75.0) Lymphocytes (%) (Auto) % (20.0-45.0) % (20.0-45.0) Monocytes (%) (Auto) % (1.0-10.0) % (1.0-10.0) Eosinophils (%) (Auto) % (0.0-3.0) % (0.0-3.0) Basophils (%) (Auto) % (0.0-2.0) % (0.0-2.0) Differential Total Cells Counted 100 Neutrophils % (Manual) 70 % (45-75) Pending Lymphocytes % (Manual) 15 % (20-45) L Pending Monocytes % (Manual) 3 % (1-10) Eosinophils % (Manual) 0 % (0-3) Basophils % (Manual) 0 % (0-2) Metamyelocytes % 2 % (0-0) H Myelocytes % 1 % (0-0) H Band Neutrophils 9 % (0-8) H Platelet Estimate Adequate Pending Platelet Morphology Normal Pending Hypochromasia 3+ Anisocytosis 3+ Prothrombin Time 93.8 SEC (9.30-11.50) H Prothrombin Time INR > 10.0 (0.9-1.1) *H Activated Partial Thromboplast Time 121 SEC (23-33) H Sodium Level 141 MMOL/L (136-145) Potassium Level 6.0 MMOL/L (3.5-5.1) #*H Chloride Level 110 MMOL/L (98-107) H Carbon Dioxide Level 5 MMOL/L (21-32) *L Anion Gap 26 mmol/L (5-15) H Blood Urea Nitrogen 39 mg/dL (7-18) H Creatinine 1.8 MG/DL (0.55-1.30) #H Estimated Glomerular Filtration Rate 44.5 mL/min (>60) Glucose Level 247 MG/DL (74-106) #H Lactic Acid Level 20.10 mmol/L (0.4-2.0) H Pending Calcium Level 7.4 MG/DL (8.5-10.1) L Total Bilirubin 8.4 MG/DL (0.2-1.0) H Direct Bilirubin 7.5 MG/DL (0.0-0.3) H Aspartate Amino Transferase (AST) 142 U/L (15-37) H Alanine Aminotransferase (ALT) 31 U/L (12-78) Alkaline Phosphatase 199 U/L (46-116) H Troponin I 0.023 ng/mL (0.000-0.056) Total Protein 2.9 G/DL (6.4-8.2) #L Albumin 1.1 G/DL (3.4-5.0) L Globulin 1.8 g/dL Albumin/Globulin Ratio 0.6 (1.0-2.7) L Hepatitis A IgM Antibody Pending Hepatitis B Surface Antigen Pending Hepatitis B Core IgM Antibody Pending Hepatitis C Antibody Pending HIV (1&2) Antibody Rapid Negative (NEGATIVE) Arterial Blood pH 6.565 (7.350-7.450) Arterial Blood Partial Pressure CO2 28.9 mmHg (35.0-45.0) L Arterial Blood Partial Pressure O2 442.1 mmHg (75.0-100.0) H Arterial Blood HCO3 2.6 mmol/L (22.0-26.0) *L Arterial Blood Oxygen Saturation 99.4 % (95-100) Arterial Blood Base Excess -30.8 (-2-2) *L Josias Test Positive Rhythm Strip Diag. Results EP Interpretation: yes Rhythm: other - Asystole Status: worsened Disposition: Condition: Referrals: [facility],REFERRING (PCP) Lg Suárez MD Sep 22, 2020 16:01
--- NOTE | 2020-09-22 16:30 | Consultation ---
History of Present Illness General Date patient seen: Sep 22, 2020 Reason for Hospitalization: Abdominal Pain Present Illness HPI 30M known history of cirrhosis who i have cared for in the past presented with abd pain ruq worsening over 1 day noted to have severely jaundice and declining. currently intubated in ICU on support. respiratory insufficiency. prognosis guarded. labs noted Allergies: Coded Allergies: No Known Allergies (Unverified , 04/26/18) COVID-19 Screening Contact w/high risk pt: No Recent Travel to affected area: No Experienced COVID-19 symptoms?: No Medication History Scheduled Omeprazole (Omeprazole), 40 MG ORAL DAILY Patient History Limited by: medical condition History Provided By: Medical Record, PMD Healthcare decision maker N Resuscitation status Advanced Directive on File Past Medical/Surgical History Past Medical/Surgical History: (1) Intractable nausea and vomiting (2) Lightheaded (3) Gallstones (4) Alcohol intoxication (5) UTI (urinary tract infection) (6) Alcohol withdrawal (7) Near syncope (8) Metabolic acidosis (9) Acute respiratory failure (10) Acute pancreatitis (11) Pancreatitis, acute (12) Hyperbilirubinemia (13) Cardiopulmonary arrest (14) Liver failure (15) Alcohol dependence (16) Acute delirium (17) Abdominal pain (18) Anemia (19) GI (gastrointestinal bleed) (20) Hemorrhagic shock (21) Severe anemia (22) Cholecystitis (23) Esophageal varices (24) Alcoholic cirrhosis Review of Systems Review of Symptoms General ROS: no weight loss or fever Psychological ROS: no depression or mood changes, no memory loss Ophthalmic ROS: no visual changes or eye irritation ENT ROS: no nasal congestion, hearing loss, dizziness Allergy and Immunology ROS: no allergic symptoms or urticaria Hematological and Lymphatic ROS: no swollen glands, unusual bleeding or bruising Endocrine ROS: no polyuria, polydipsia, weight changes, temperature intolerance Respiratory ROS: no cough, shortness of breath, or wheezing Cardiovascular ROS: no chest pain or dyspnea on exertion Gastrointestinal ROS: denies abdominal pain, bright red blood in stool. Musculoskeletal ROS: no myalgias or arthralgias Neurological ROS: no TIA or stroke symptoms Dermatological ROS: no new or changing skin lesions, rashes or pruritis unable to obtain given medical condition Physical Exam Physical Exam General appearance: moderate distress, appears stated age Head: Normocephalic, without obvious abnormality, atraumatic jaundice Eyes: conjunctivae/corneas clear. PERRL, EOM's intact. Fundi benign Throat: Lips, mucosa, and tongue normal. Teeth and gums normal Neck: supple, symmetrical, trachea midline, no adenopathy, thyroid: not enlarged, symmetric, no tenderness/mass/nodules, no carotid bruit and no JVD Lungs: ett in place dec to auscultation bilaterally Heart: regular rate and rhythm, S1, S2 normal, no murmur, click, rub or gallop Abdomen: soft, non-tender. Bowel sounds normal. No masses, no organomegaly distended Extremities: extremities normal, atraumatic, no cyanosis ++edema Pulses: 2+ and symmetric Skin: Skin color, texture, turgor normal. No rashes or lesions Neurologic: Grossly normal Last 24 Hour Vital Signs Date Time Temp Pulse Resp B/P (MAP) Pulse Ox O2 Delivery O2 Flow Rate FiO2 09/22/20 15:02 49/30 09/22/20 13:13 65 19 58/25 (36) 100 09/22/20 13:00 64 18 48/28 (35) 100 09/22/20 12:45 63 19 48/26 (33) 100 09/22/20 12:39 62 17 48/29 (35) 100 09/22/20 12:35 62 18 47/22 (30) 100 09/22/20 12:27 93/34 09/22/20 12:01 62 19 93/34 (53) 100 09/22/20 12:00 96.0 61 19 100 09/22/20 12:00 61 09/22/20 11:50 61 22 44/22 (29) 100 09/22/20 11:40 60 23 66/44 (51) 100 09/22/20 11:31 60 23 50/32 (38) 100 09/22/20 11:30 60 24 81/59 (66) 100 09/22/20 11:20 64 20 50 09/22/20 11:20 60 21 46/35 (39) 100 09/22/20 11:10 61 19 73/60 (64) 100 09/22/20 11:00 62 19 70/53 (59) 100 09/22/20 10:58 62 53/23 09/22/20 10:50 63 20 53/23 (33) 100 09/22/20 10:40 66 21 52/21 (31) 100 09/22/20 10:30 68 17 54/30 (38) 100 09/22/20 10:20 69 22 58/27 (37) 100 09/22/20 10:12 70 26 55/26 (36) 100 09/22/20 10:00 71 25 51/33 (39) 100 09/22/20 09:28 58/28 09/22/20 09:15 72 17 100 09/22/20 09:13 73 18 77/28 (44) 100 09/22/20 09:06 72 18 54/28 (37) 100 09/22/20 09:00 73 17 56/28 (37) 99 09/22/20 08:50 73 16 58/22 (34) 100 09/22/20 08:45 73 19 99 09/22/20 08:40 73 17 70/27 (41) 97 09/22/20 08:30 73 35 66/32 (43) 98 09/22/20 08:20 74 19 79/27 (44) 98 09/22/20 08:15 74 19 98 09/22/20 08:10 71/25 09/22/20 08:10 74 19 75/30 (45) 99 09/22/20 08:00 74 09/22/20 08:00 74 19 70/35 (47) 97 09/22/20 07:50 74 20 81/31 (48) 98 09/22/20 07:45 74 20 98 09/22/20 07:40 74 20 115/29 (57) 99 09/22/20 07:30 75 19 91/30 (50) 99 09/22/20 07:20 76 19 97/27 (50) 100 09/22/20 07:15 76 19 100 09/22/20 07:10 76 20 105/30 (55) 100 09/22/20 07:00 95.0 76 18 95/34 (54) 100 09/22/20 06:50 83 14 100 Mechanical Ventilator 50 09/22/20 06:31 83 14 50 09/22/20 05:49 89 18 100 60 09/22/20 04:00 98.1 114 26 117/61 (79) 95 09/22/20 04:00 114 09/22/20 00:00 109 12/4/20 00:00 97.1 103 22 86/58 (67) 99 09/21/20 23:46 Room Air 09/21/20 23:04 98.1 98 22 110/53 98 Room Air 09/21/20 22:00 98.1 103 20 106/40 100 Room Air 09/21/20 19:58 107 22 46/63 100 09/21/20 19:28 107 22 117/63 100 09/21/20 19:00 98.1 113 22 107/47 98 Room Air 09/21/20 17:59 98.1 09/21/20 17:38 98.1 09/21/20 17:36 107 22 100 09/21/20 16:38 124 19 Room Air 09/21/20 16:38 98.1 19 117/63 98 Room Air Laboratory Tests Test 09/21/20 16:45 09/21/20 18:10 09/21/20 19:30 09/21/20 20:30 Prothrombin Time 42.1 SEC (9.30-11.50) H Prothromb Time International Ratio 4.3 (0.9-1.1) H Activated Partial Thromboplast Time 34 SEC (23-33) H Sodium Level 133 MMOL/L (136-145) L Potassium Level 3.4 MMOL/L (3.5-5.1) L Chloride Level 101 MMOL/L (98-107) Carbon Dioxide Level 20 MMOL/L (21-32) L Anion Gap 12 mmol/L (5-15) Blood Urea Nitrogen 29 mg/dL (7-18) H Creatinine 1.0 MG/DL (0.55-1.30) Estimat Glomerular Filtration Rate > 60 mL/min (>60) Glucose Level 124 MG/DL (74-106) H Calcium Level 7.6 MG/DL (8.5-10.1) L Total Bilirubin 16.8 MG/DL (0.2-1.0) H Direct Bilirubin 14.4 MG/DL (0.0-0.3) H Aspartate Amino Transf (AST/SGOT) 125 U/L (15-37) H Alanine Aminotransferase (ALT/SGPT) 45 U/L (12-78) Alkaline Phosphatase 420 U/L (46-116) H Total Protein 5.5 G/DL (6.4-8.2) L Albumin 1.5 G/DL (3.4-5.0) L Globulin 4.0 g/dL Albumin/Globulin Ratio 0.4 (1.0-2.7) L Lipase 685 U/L (73-393) H Serum Alcohol 4 mg/dL White Blood Count 44.4 K/UL (4.8-10.8) *H Red Blood Count 2.03 M/UL (4.70-6.10) L Hemoglobin 6.0 G/DL (14.2-18.0) *L Hematocrit 19.5 % (42.0-52.0) L Mean Corpuscular Volume 96 FL (80-99) Mean Corpuscular Hemoglobin 29.5 PG (27.0-31.0) Mean Corpuscular Hemoglobin Concent 30.8 G/DL (32.0-36.0) L Red Cell Distribution Width 23.4 % (11.6-14.8) H Platelet Count 325 K/UL (150-450) Mean Platelet Volume 7.1 FL (6.5-10.1) Neutrophils (%) (Auto) % (45.0-75.0) Lymphocytes (%) (Auto) % (20.0-45.0) Monocytes (%) (Auto) % (1.0-10.0) Eosinophils (%) (Auto) % (0.0-3.0) Basophils (%) (Auto) % (0.0-2.0) Differential Total Cells Counted 100 Neutrophils % (Manual) 75 % (45-75) Lymphocytes % (Manual) 5 % (20-45) L Monocytes % (Manual) 4 % (1-10) Eosinophils % (Manual) 5 % (0-3) H Basophils % (Manual) 0 % (0-2) Metamyelocytes % 1 % (0-0) H Myelocytes % 1 % (0-0) H Band Neutrophils 9 % (0-8) H Platelet Estimate Adequate Platelet Morphology Normal Hypochromasia 3+ Anisocytosis 2+ Lactic Acid Level 2.10 mmol/L (0.4-2.0) H 3.60 mmol/L (0.66-2.22) H Test 09/22/20 04:44 09/22/20 05:20 12/4/20 05:30 09/22/20 15:15 POC Whole Blood Glucose 207 MG/DL (74-106) H White Blood Count 58.4 K/UL (4.8-10.8) *H 49.5 K/UL (4.8-10.8) *H Red Blood Count 0.87 M/UL (4.70-6.10) L 1.06 M/UL (4.70-6.10) L Hemoglobin 2.5 G/DL (14.2-18.0) 3.0 G/DL (14.2-18.0) *L Hematocrit 8.5 % (42.0-52.0) #L 10.1 % (42.0-52.0) L Mean Corpuscular Volume 98 FL (80-99) 95 FL (80-99) Mean Corpuscular Hemoglobin 28.7 PG (27.0-31.0) 28.6 PG (27.0-31.0) Mean Corpuscular Hemoglobin Concent 29.3 G/DL (32.0-36.0) L 30.0 G/DL (32.0-36.0) L Red Cell Distribution Width 24.4 % (11.6-14.8) H 16.3 % (11.6-14.8) H Platelet Count 211 K/UL (150-450) 115 K/UL (150-450) L Mean Platelet Volume 7.5 FL (6.5-10.1) 9.2 FL (6.5-10.1) Neutrophils (%) (Auto) % (45.0-75.0) % (45.0-75.0) Lymphocytes (%) (Auto) % (20.0-45.0) % (20.0-45.0) Monocytes (%) (Auto) % (1.0-10.0) % (1.0-10.0) Eosinophils (%) (Auto) % (0.0-3.0) % (0.0-3.0) Basophils (%) (Auto) % (0.0-2.0) % (0.0-2.0) Differential Total Cells Counted 100 Neutrophils % (Manual) 70 % (45-75) Pending Lymphocytes % (Manual) 15 % (20-45) L Pending Monocytes % (Manual) 3 % (1-10) Eosinophils % (Manual) 0 % (0-3) Basophils % (Manual) 0 % (0-2) Metamyelocytes % 2 % (0-0) H Myelocytes % 1 % (0-0) H Band Neutrophils 9 % (0-8) H Platelet Estimate Adequate Pending Platelet Morphology Normal Pending Hypochromasia 3+ Anisocytosis 3+ Prothrombin Time 93.8 SEC (9.30-11.50) H Prothromb Time International Ratio > 10.0 (0.9-1.1) *H Activated Partial Thromboplast Time 121 SEC (23-33) H Sodium Level 141 MMOL/L (136-145) Potassium Level 6.0 MMOL/L (3.5-5.1) #*H Chloride Level 110 MMOL/L (98-107) H Carbon Dioxide Level 5 MMOL/L (21-32) *L Anion Gap 26 mmol/L (5-15) H Blood Urea Nitrogen 39 mg/dL (7-18) H Creatinine 1.8 MG/DL (0.55-1.30) #H Estimat Glomerular Filtration Rate 44.5 mL/min (>60) Glucose Level 247 MG/DL (74-106) #H Lactic Acid Level 20.10 mmol/L (0.4-2.0) H 20.10 mmol/L (0.66-2.22) H Calcium Level 7.4 MG/DL (8.5-10.1) L Total Bilirubin 8.4 MG/DL (0.2-1.0) H Direct Bilirubin 7.5 MG/DL (0.0-0.3) H Aspartate Amino Transf (AST/SGOT) 142 U/L (15-37) H Alanine Aminotransferase (ALT/SGPT) 31 U/L (12-78) Alkaline Phosphatase 199 U/L (46-116) H Troponin I 0.023 ng/mL (0.000-0.056) Total Protein 2.9 G/DL (6.4-8.2) #L Albumin 1.1 G/DL (3.4-5.0) L Globulin 1.8 g/dL Albumin/Globulin Ratio 0.6 (1.0-2.7) L Hepatitis A IgM Antibody Pending Hepatitis B Surface Antigen Pending Hepatitis B Core IgM Antibody Pending Hepatitis C Antibody Pending HIV (1&2) Antibody Rapid Negative (NEGATIVE) Arterial Blood pH 6.565 (7.350-7.450) Arterial Blood Partial Pressure CO2 28.9 mmHg (35.0-45.0) L Arterial Blood Partial Pressure O2 442.1 mmHg (75.0-100.0) H Arterial Blood HCO3 2.6 mmol/L (22.0-26.0) *L Arterial Blood Oxygen Saturation 99.4 % (95-100) Arterial Blood Base Excess -30.8 (-2-2) *L Josias Test Positive Height (Feet): 5 Height (Inches): 7.00 Weight (Pounds): 185 Medications Current Medications Medications (Trade) Dose Ordered Sig/Solis Route PRN Reason Start Time Stop Time Status Last Admin Dose Admin Dopamine HCl/ Dextrose 250 ml @ 62.936 mls/ hr Q24H IV 09/22/20 07:30 09/25/20 07:18 09/22/20 12:27 Lactated Ringer's 1,000 ml @ 100 mls/hr Q10H IV 09/22/20 08:00 10/22/20 07:59 09/22/20 08:10 Norepinephrine Bitartrate 246 ml @ 0 mls/hr Q24H IV 09/22/20 15:00 09/25/20 14:59 09/22/20 15:02 Ondansetron HCl (Zofran) 4 mg Q6H PRN IVP Nausea & Vomiting 09/22/20 05:30 10/22/20 05:29 Pantoprazole 80 mg/Sodium Chloride 250 ml @ 25 mls/hr Q10H IV 09/22/20 07:30 10/22/20 07:29 09/22/20 09:43 Phenylephrine HCl 100 mg/Dextrose 500 ml @ 0 mls/hr Q24H IV 09/22/20 10:30 09/25/20 10:26 09/22/20 10:58 Piperacillin Sod/ Tazobactam Sod 3.375 gm/Sodium Chloride 110 ml @ 27.5 mls/hr EVERY 8 HOURS IVPB 09/22/20 06:00 09/27/20 05:59 09/22/20 09:43 Sodium Bicarbonate 150 ml/Dextrose 1,150 ml @ 100 mls/hr [id number] STAT IV 09/22/20 10:41 09/22/20 22:10 09/22/20 12:29 Vasopressin 100 units/Sodium Chloride 100 ml @ 0 mls/hr Q24H IV 09/22/20 08:30 09/25/20 08:18 09/22/20 09:30 Assessment/Plan Problem List: (1) Metabolic acidosis ICD Codes: E87.2 - Acidosis SNOMED: 87964118 (2) Acute respiratory failure ICD Codes: J96.00 - Acute respiratory failure, unspecified whether with hypoxia or hypercapnia SNOMED: 50274565 (3) Acute pancreatitis ICD Codes: K85.90 - Acute pancreatitis without necrosis or infection, unspecified SNOMED: 105421587 (4) Pancreatitis, acute ICD Codes: K85.90 - Acute pancreatitis without necrosis or infection, unspecified SNOMED: 294529437 (5) Hyperbilirubinemia ICD Codes: E80.6 - Other disorders of bilirubin metabolism SNOMED: 90955942 (6) Cardiopulmonary arrest ICD Codes: I46.9 - Cardiac arrest, cause unspecified SNOMED: 719279462 (7) Liver failure ICD Codes: K72.90 - Hepatic failure, unspecified without coma SNOMED: 58924852 (8) Alcohol intoxication ICD Codes: F10.929 - Alcohol use, unspecified with intoxication, unspecified SNOMED: 88061739 (9) UTI (urinary tract infection) ICD Codes: N39.0 - Urinary tract infection, site not specified SNOMED: 05269916 (10) Alcohol withdrawal ICD Codes: F10.239 - Alcohol dependence with withdrawal, unspecified SNOMED: 839583650 (11) Gallstones ICD Codes: K80.20 - Calculus of gallbladder without cholecystitis without obstruction SNOMED: 199640762 (12) Lightheaded ICD Codes: R42 - Dizziness and giddiness SNOMED: 900989860 (13) Near syncope ICD Codes: R55 - Syncope and collapse SNOMED: 032715446 (14) Intractable nausea and vomiting ICD Codes: R11.2 - Nausea with vomiting, unspecified SNOMED: 615664418 (15) Alcohol dependence ICD Codes: F10.20 - Alcohol dependence, uncomplicated SNOMED: 11393790 (16) Acute delirium ICD Codes: R41.0 - Disorientation, unspecified SNOMED: 7518564, 1073280 (17) Abdominal pain Assessment & Plan: leukocytosis, anemia, lactic acidosis, septic intubated in icu severe jaundice liver failure prior imaging reviewed labs noted unfortunate not surgical candidate prognosis guarded wean vent pressor prn trend labs fluids renal input will follow with recs thank you ICD Codes: R10.9 - Unspecified abdominal pain SNOMED: 61188791 (18) Anemia ICD Codes: D64.9 - Anemia, unspecified SNOMED: 864294584 (19) GI (gastrointestinal bleed) ICD Codes: K92.2 - Gastrointestinal hemorrhage, unspecified SNOMED: 11889112 (20) Hemorrhagic shock ICD Codes: R57.8 - Other shock SNOMED: 969085 (21) Severe anemia ICD Codes: D64.9 - Anemia, unspecified SNOMED: 900799342 (22) Cholecystitis ICD Codes: K81.9 - Cholecystitis, unspecified SNOMED: 86577309 (23) Esophageal varices ICD Codes: I85.00 - Esophageal varices without bleeding SNOMED: 51800519 (24) Alcoholic cirrhosis ICD Codes: K70.30 - Alcoholic cirrhosis of liver without ascites SNOMED: 733159352 Gorge Ochoa Sep 22, 2020 16:30
--- NOTE | 2020-09-23 12:59 | Cardiology Report ---
APPROVED REPORT EKG Measurement Heart [id number] [place] 124P74 [id number] <Conclusion> * Pediatric ECG analysis * Sinus bradycardia Possible Right ventricular hypertrophy
--- NOTE | 2020-09-23 13:02 | Cardiology Report ---
APPROVED REPORT EKG Measurement Heart [id number] [place] 130P56 [id number] <Conclusion> Sinus tachycardia Otherwise normal ECG
--- NOTE | 2020-09-23 17:34 | Discharge Summary ---
Discharge Summary Hospital Course Date of Admission Sep 21, 2020 at 19:10 Date of Discharge Sep 22, 2020 at 15:43 Admitting Diagnosis pancreatitis/liver failure HPI Luis Felipe Canchola is a 30 year old male who was admitted on Sep 21, 2020 at 19:10 for Pancreatitis,Liver Failure History was taken from chart review and in speaking to GI accounting consultant. At this point patient is unresponsive and intubated. In brief he is a 30 year old male with history of recurrent pancreatitis, ETOH cirrhosis who presented to the ED c/o RUQ abdominal pain and nausea for 1 day. He was noted to be severely jaundiced. Patient reported to the ED staff that his last alcohol intake was on August 19, 2020. He was afebrile, tachycardic in the ER. Hig Hgb was 6 and he received 1 unit of PRBC. GI consulted and patient was admitted to telemetry. at around 3 am he had hematemesis, became hypotensive, and RUBY ENGINEER called. He received more rbc. Around 6 am he coded, he was started on multiple pressors, received more prbc, ffp and vitamin k. Patient's family was immediately contact on my arrival. sisters showed up to bedside. Explained to family the poor prognosis. Parents notified by sisters and arrived. Per discussion with GI, patient was too unstable for any procedures. Patient remained on 4 pressors, bicarb drip and continued to receives prbc. Patient went into asystole, code blue called and eventually pronounced . Family at bedside. Consultations Critical care: Dr. Carrington GI: Dr. Munroe Surgery: Dr. Ochoa Hospital Course History was taken from chart review and in speaking to GI accounting consultant. At this point patient is unresponsive and intubated. In brief he is a 30 year old male with history of recurrent pancreatitis, ETOH cirrhosis who presented to the ED c/o RUQ abdominal pain and nausea for 1 day. He was noted to be severely jaundiced. Patient reported to the ED staff that his last alcohol intake was on August 19, 2020. He was afebrile, tachycardic in the ER. Hig Hgb was 6 and he received 1 unit of PRBC. GI consulted and patient was admitted to telemetry. at around 3 am he had hematemesis, became hypotensive, and RUBY ENGINEER called. He received more rbc. Around 6 am he coded, he was started on multiple pressors, received more prbc, ffp and vitamin k. Patient's family was immediately contact on my arrival. sisters showed up to bedside. Explained to family the poor prognosis. Parents notified by sisters and arrived. Per discussion with GI, patient was too unstable for any procedures. Patient remained on 4 pressors, bicarb drip and continued to receives prbc. Patient went into asystole, code blue called and eventually pronounced . Family at bedside. Discharge Condition Upon Discharge: other - Discharge Vital Signs Last Vital Signs Date Time Temp Pulse Resp B/P (MAP) Pulse Ox O2 Delivery O2 Flow Rate FiO2 09/22/20 15:44 0 0 103/89 (94) 20 09/22/20 12:00 96.0 09/22/20 12:00 Mechanical Ventilator 09/22/20 11:20 50 Discharge Disposition Patient was Discharge Diagnoses: (1) Hemorrhagic shock (2) GI (gastrointestinal bleed) (3) Severe anemia (4) Esophageal varices (5) Alcoholic cirrhosis (6) Cardiopulmonary arrest (7) Acute respiratory failure (8) Metabolic acidosis (9) Acute pancreatitis (10) Pancreatitis, acute (11) Hyperbilirubinemia (12) Abdominal pain Jorge A Nobles M.D. Sep 23, 2020 17:34
== END 2020-09-22 15:43 | disposition expired | DRG 279 ==
LOC: EMR 17:12 → EDBEDREQSVC 19:06 → EDBEDREQ 19:06 → 2E 19:10 → EDBEDREQ 20:18 → 2E 23:54 → ICU 09-22 06:14
PROC: 30233N1 Transfusion of Nonautologous Red Blood Cells into Peripheral Vein, Percutaneous Approach (ICD-10-PCS; principal; 2020-09-22)
PROC: 30233K1 Transfusion of Nonautologous Frozen Plasma into Peripheral Vein, Percutaneous Approach (ICD-10-PCS; 2020-09-22)
PROC: 5A12012 Performance of Cardiac Output, Single, Manual (ICD-10-PCS; 2020-09-22)
PROC: 5A1935Z Respiratory Ventilation, Less than 24 Consecutive Hours (ICD-10-PCS; 2020-09-22)
PROC: 0BH17EZ Insertion of Endotracheal Airway into Trachea, Via Natural or Artificial Opening (ICD-10-PCS; 2020-09-22)
DX: K72.00 Acute and subacute hepatic failure without coma (principal); K92.2 Gastrointestinal hemorrhage, unspecified; R57.8 Other shock; D64.9 Anemia, unspecified; E87.2 Acidosis; J96.00 Acute respiratory failure, unspecified whether with hypoxia or hypercapnia; F10.20 Alcohol dependence, uncomplicated; I85.00 Esophageal varices without bleeding; K70.30 Alcoholic cirrhosis of liver without ascites; E80.6 Other disorders of bilirubin metabolism; K76.0 Fatty (change of) liver, not elsewhere classified
CPT/HCPCS: 36415; 71045; 76700; 80053; 82040; 82248; 82803; 82962; 83605; 83690; 84484; 85007; 85025; 85610; 85730; 86703; 86705; 86709; 86803; 86850; 86900; 86901; 86920; 86927; 87040; 87340; 92950; 93005; 94002; 94664; 96361; 96365; 96367; 96375; 96376; 99291; G0480; J2370; J2405; J3430; J7030